=== PATIENT | female | born 1950 | race Caucasian/White ===

== ENCOUNTER 2018-11-12 11:50 | Emergency (ER) | payer MEDICARE, SELFPAY ==
[2018-11-12 11:50] VITALS: BP 143/81; PULSE 102; RESP 22; TEMP 36.7; O2SAT 98; BMI 26.9
--- NOTE | 2018-11-12 11:55 | ED.RN ---
PRESENTED TO ED. WOKE WITH RT FACIAL DROOP AND ILD RT GRASP WEAKNESS. REPORTS HAVING LOTT FOR A WEAK AND CONTINUES. WEAKNESS X2 DAYS. UNABLE TO DETERMINE LAST SEEN WELL. DUE TO GRADUAL PROGRESSION OF SX. NOTIFIED DR MARQUEZ. WANTS TO SEE PATIENT TO FIRST TO DETERMINE COURSE/PLAN TREATMENT.
--- NOTE | 2018-11-12 11:55 | ED.RN ---
1150. dr quinonez aware of pt . no stroke team
--- NOTE | 2018-11-12 12:01 | ED.RN ---
DR CROWLEY AT BEDSIDE AT PRESENT. PT REPORTS LOTT FOR 3-4 DAYS AT THIS TIME. CHANGE FROM INITAL INFORMATION OF A WEEK.
[2018-11-12 12:06] VITALS: BP 141/74; PULSE 105; RESP 24; O2SAT 98
--- NOTE | 2018-11-12 12:11 | CT_ITS ---
STUDY: CT BRAIN WITHOUT CONTRAST REASON FOR EXAM: Female, 68 years old. Right facial droop and speech difficulties. RADIATION DOSAGE (If Supplied By Facility): CTDIvol = ( 44.99 ) mGy, DLP = ( 796.11 ) mGycm TECHNIQUE: Transaxial CT imaging of the brain was performed without administration of intravenous contrast material. Individualized dose optimization techniques were used for this CT. COMPARISON: No relevant priors. FINDINGS: Normal soft tissue structures. Normal calvarium. Normal size ventricles and extra-axial spaces for the patient's age. Normal white matter tracts of the cerebral hemispheres. Normal basal ganglia and thalami. Normal brainstem. Normal cerebellum. There is no intracranial hemorrhage. There are no findings of an acute ischemic infarction. Normal visualized paranasal sinuses. CT/Brain/Head without Contrast IMPRESSION: Normal unenhanced CT scan of the brain. Electronically Signed: Festus Solis, at 12:57 EDT , Service support ,
--- NOTE | 2018-11-12 12:12 | EKG12_ITS ---
Test Reason : NEUROS/SX Blood Pressure : / mmHG Vent. Rate : 100 BPM Atrial Rate : 100 BPM P-R Int : 138 ms QRS Dur : 078 ms QT Int : 364 ms P-R-T Axes : 054 004 019 degrees QTc Int : 469 ms Normal sinus rhythm ST & T wave abnormality, consider anterolateral ischemia Abnormal ECG Confirmed by TOD BLOOD, JIMBO ([id number]), state editor BERKLEY LINARES ([id number]) on 11/14/2018 1:31:22 PM Referred By: ALMA Confirmed By:JIMBO BARON MD
--- NOTE | 2018-11-12 12:13 | ED.DCSUM_ITS ---
- ER Visit Summary Date of Service: 11/12/18 Chief Complaint: Facial weakness History of Present Illness: The patient is a 68 F who presents with right-sided facial weakness that began when she woke up this morning. Patient states she was having difficulties talking today because of the facial weakness. Patient denies any difficulty swallowing. Patient states she has had a headache recently. Patient states this is over the occiput and right side of her head. Patient admits to some nausea but denies any vomiting. Patient denies any chest pain or shortness of breath. Patient does admit to some blurred vision. Patient also admits to a sore throat. Patient states she has been having some difficulty ambulating over the past couple days because she has felt off balance. Physical Examination: Vital signs are stable. Patient is afebrile. Patient is in no acute distress. Cranial nerves II through XII are intact except for weakness of the right side of her face including her forehead. Strength is 5/5 bilaterally upper and lower extremities. There are no sensory deficits noted. Oral mucosa is pink and moist. Neck is supple. Trachea is midline. There is no JVD. Heart was regular rate and rhythm. Lungs are clear and equal bilaterally. Abdomen is soft and nontender. Test Results: EKG showed normal sinus rhythm with a rate of 100. There is nonspecific T wave inversion in leads V2 through V5. These are unchanged compared to previous EKG dated 02/01/2014. CT scan of the brain was obtained to evaluate her headache. There is no acute intracranial abnormality. CBC, basic metabolic profile, and troponin were obtained to evaluate for possible causes of her feeling off balance. These were all within normal limits. Emergency Department Course and Treatment: Patient was advised of her results. Patient was advised that this most likely a Sims's palsy. Patient was given a prescription for prednisone. Patient was instructed to use artificial tears to her right eye frequently. Patient was instructed to follow-up with her primary care physician in 3 to 5 days. Patient understood and was agreeable with the plan. All questions were answered. Disposition: Discharge home Impression: Sims's palsy This note was generated with [employer] software. It may contain incorrect words, spelling, and punctuation that were not noted in review of the chart prior to signing ED Disposition - Plan for ED Patient: Disposition: Home or Assisted Living Diagnosis: Sims's palsy Instructions: Sims's Palsy Prescriptions: predniSONE tablet 60 mg PO DAILY #15 tab Prescription Printed Referrals: Frederic Luong MD [Primary Care Provider] - 3-5 Days
[2018-11-12 12:22] LABS: Absolute Lymphocyte Count 2.79 X10^3/uL (0.83-4.51); Basophil# 0.08 X10^3/uL; Basophil% 0.8 % (0-1); Eosinophils% 2.1 % (0-5); Hematocrit 46.6 % (37-47); Hemoglobin 15.1 g/dL (12.0-15.0); Lymphocyte # 2.79 X10^3/ul (4.0); Lymphocyte % 28.8 % (19-41); Mean Corp Hgb Conc 32.4 g/dL (32-36); Mean Corpuscular Hgb 28.1 pg (27.0-32.0); Mean Corpuscular Volume 86.6 fL (81-99); Mean Platelet Vol. 9.1 fl (6.2-12.0); Monocyte# 0.55 X10^3/uL; Monocyte% 5.7 % (0-10); NRBC Flagged by Analyzer 0 % (0-5); Neutrophil # 6.04 X10^3/uL (2.7-7.7); Neutrophil % 62.3 % (47-70); Platelet Count 398 K/mm3 (150-450); RBC Distribution Width SD 40.5 fl (35.1-43.9); Red Blood Count 5.38 M/mm3 (4.2-5.4); White Blood Count 9.7 K/mm3 (4.4-11.0)
[2018-11-12 12:38] LABS: Anion Gap 10 (5-15); BUN 18 mg/dL (7-18); BUN/Creat Ratio 26.6 RATIO (10-20); Calcium,Total 9.9 mg/dL (8.5-10.1); Chloride 101 mmol/L (98-107); Creatinine, Serum 0.68 mg/dL (0.55-1.02); EST Glomerular Filtration Rate 92 mL/min (>60); Est Glom Filt Rate - Afr Amer 112 mL/min (>60); Estimated Creatinine Clearance 39.75 ml/min; Glucose 101 mg/dL (74-106); Potassium 3.5 mmol/L (3.5-5.1); Sodium Level 138 mmol/L (136-145)
[2018-11-12 13:06] VITALS: BP 135/69; PULSE 86; RESP 16; O2SAT 97
[2018-11-12] MEDS: Acetaminophen 500 MG Tablet 1000 MG PO (14:09)
[2018-11-12 14:10] VITALS: BP 147/70; PULSE 99; RESP 17; O2SAT 98
[2018-11-12 15:25] LABS: Bedside Glucose 96 mg/dL (70-110)
== END 2018-11-12 14:13 | disposition home or self-care (01) ==
PROVIDERS: Emergency Provider Emergency Medicine; Family Provider Internal Medicine; PCP Internal Medicine
DX: G51.0 Bell's palsy (principal); M54.9 Dorsalgia, unspecified; G89.29 Other chronic pain; J02.9 Acute pharyngitis, unspecified; R26.2 Difficulty in walking, not elsewhere classified
CPT/HCPCS: 70450; 80048; 82962; 84484; 85025; 93005; 99285

== ENCOUNTER 2018-11-14 13:24 | Inpatient (IN) | payer MEDICARE, SELFPAY ==
[2018-11-14] VITALS (8 sets, daily range): BP systolic 126–146; BP diastolic 56–87; PULSE 66–108; RESP 16–20; TEMP 36.4–37.2; O2SAT 95–100; BMI 26.1; BMI 26.6
--- NOTE | 2018-11-14 13:58 | EKG12_ITS ---
Test Reason : Blood Pressure : / mmHG Vent. Rate : 093 BPM Atrial Rate : 093 BPM P-R Int : 136 ms QRS Dur : 084 ms QT Int : 358 ms P-R-T Axes : 052 -05 113 degrees QTc Int : 445 ms Normal sinus rhythm ST & T wave abnormality, consider anterolateral ischemia Abnormal ECG Confirmed by TEE BLOOD, KARI ([id number]), legal editor LILIA CHILDS ([id number]) on 11/18/2018 1:13:10 PM Referred By: JILL Confirmed By:KARI OLIVEIRA MD
--- NOTE | 2018-11-14 13:59 | CT_ITS ---
STUDY: CTA HEAD AND NECK WITH CONTRAST REASON FOR EXAM: Female, 68 years old. Right-sided weakness and right facial droop. RADIATION DOSAGE (If Supplied By Facility): CTDIvol = ( 26.10 ) mGy, DLP = ( 1187.80 ) mGycm TECHNIQUE: CT angiography was performed with a multi-detector CT scanner. Data acquisition was obtained from the skull base through the vertex following intravenous administration of 100ML IV Isovue 300. MIP images were reconstructed from the axial data set. Post-processing of the angiographic images was performed, with multiplanar reformation and 3D reconstruction. Individualized dose optimization techniques were used for this CT. COMPARISON: No relevant priors. FINDINGS: Normal bilateral petrous carotid arteries. Normal right cavernous carotid artery with a normal supraclinoid bifurcation. Normal left cavernous carotid artery with a normal supraclinoid bifurcation. There is hypoplastic development of the right A1 segment of the anterior cerebral arteries with an atretic but intact artery. Normal left A1 segments of the anterior cerebral artery. Normal intact anterior communicating artery (ACOM). Normal bilateral A2 segments of the anterior cerebral arteries. Normal right M1 and M2 segments of the middle cerebral arteries, with a normal M1 bifurcation. Normal left M1 and M2 segments of the middle cerebral arteries, with a normal M1 bifurcation. There is a persistent origin of the right posterior cerebral artery with absence of the posterior communicating artery (PCOM). Normal left posterior communicating artery (PCOM). Normal bilateral vertebral arteries. Normal basilar artery with a normal basilar bifurcation. The visualized bilateral superior cerebellar (SCA) arteries are normal. Normal bilateral P1, P2 and visualized P3 segments of the posterior cerebral arteries. There is no demonstrated aneurysm of the picayune of [place]. There is no demonstrated abnormality of the visualized brain. AORTIC ARCH: There is atherosclerotic calcific plaque formation of the aortic arch and great vessels arising from the aortic arch, without a hemodynamically significant stenosis. There is a normal origin of the brachiocephalic, left common carotid, and left subclavian arteries. RIGHT CAROTID ARTERIES: Normal right common carotid artery (CCA). Normal right common carotid bulb. Normal origin of the right internal carotid (ICA) artery without a hemodynamically significant stenosis. Normal visualized cervical portion of the right internal carotid artery. Normal origin of the right external carotid artery (ECA). LEFT CAROTID ARTERIES: Normal left common carotid artery (CCA). Normal left common carotid bulb. Normal origin of the left internal carotid (ICA) artery without a hemodynamically significant stenosis. Normal visualized cervical portion of the left internal carotid artery. Normal origin of the left external carotid artery (ECA). VERTEBRAL ARTERIES: Normal bilateral vertebral arteries. CT/CTA Head AND Neck W/ Contrast IMPRESSION: Normal CTA Head and neck with contrast. Electronically Signed: Festus Solis, at 15:07 EDT , Service support ,
--- NOTE | 2018-11-14 14:01 | ED.DCSUM_ITS ---
- ER Visit Summary Date of Service: 11/14/18 Chief Complaint: Right facial droop and right-sided weakness History of Present Illness: The patient is a 68 F around November 12 and diagnosed with Sims's palsy. At that time she had right-sided facial droop. Since that time she is developed nausea and vomiting and trouble using her right arm and right leg which she is states that weaker. He also states she is having trouble walking due to her balance. States she has a posterior headache. She denies any head trauma. She is on no blood thinners. She is never anything like this before. Physical Examination: Alert female no acute distress. Vital signs are stable. She is afebrile. Blood pressure 126/87. HEENT exam pupils round reactive light. She is able to open but not fully close her right eye. She is right- sided facial droop. Tongue is midline. Neck nontender no lymphadenopathy. Lungs clear to auscultation bilaterally. Heart regular rate and rhythm rate about 105 no murmur. Abdomen soft nontender normal bowel sounds no peritoneal signs. Extremities moves all 4. He is weak on the right hand with hands parter and also the right leg. Neurologically she is awake and alert. She has right facial droop, right hand hands parter strength seen in the left in the left and she is r ight-hand dominant and decreased right leg strength. She also has slightly decreased dexterity with the right and versus the left and the right leg with [id number]. NIH score is of 5. She has normal speech. He is able to answer questions. Test Results: Chest x-ray no acute abnormality read by myself the radiologist. CTA head neck no acute abnormality read as normal by the radiologist and reviewed by me. EKG sinus rhythm rate of 93 with inverted T waves that were seen on a prior EKG. White count elevated 16 globin 15. Electrolytes sodium 132. Normal gap. Creatinine 0.7. INR 1. Emergency Department Course and Treatment: 68-year-old being worked up for possible CVA. Versus other etiologies. She had a CAT scan done the other day which is unremarkable. Normal screening labs. I will do a CTA of her head and neck today. Most likely she will need to be admitted for further work-up and possible MRI. Treatment Plan: Repeat exam at 1515 p.m. patient is unchanged. She still definitely has right facial droop and right upper and lower extremity weakness with decreased dexterity. In light of that and her age still may be Sims's palsy be unlikely did have any involvement of the extremities show need to be admitted for further evaluation and work-up for possible stroke. Disposition: admit Impression: Acute right facial droop and right-sided weakness Rule out stroke This note was generated with [employer] dictation software. It may contain incorrect words, spelling, and punctuation that were not noted in review of the chart prior to signing ED Disposition - Plan for ED Patient: Referrals: Frederic Luong MD [Primary Care Provider] -
--- NOTE | 2018-11-14 14:01 | RAD_ITS ---
STUDY: X-RAY CHEST REASON FOR EXAM: Female, 68 years old. History of CVA. TECHNIQUE: Single AP portable view of the chest. COMPARISON: None. FINDINGS: EKG electrodes are seen. The lungs are clear and expanded. There is no demonstrated pleural abnormality. Normal size heart. Normal mediastinum and inés. Normal visualized pulmonary arteries. There is atherosclerotic calcification of the aortic arch with tortuosity. Normal visualized thoracic spine. Normal visualized ribs, clavicles, and shoulders. There is no demonstrated abnormality of the visualized soft tissue structures of the upper abdomen. RAD/Chest 1 View (Portable) IMPRESSION: No acute abnormality is seen. Electronically Signed: Festus Solis, at 14:27 EDT , Service support ,
[2018-11-14] MEDS: 0.9% Normal Saline 1,000 ML 1000 ML IV (14:18)
[2018-11-14 14:26] LABS: Absolute Lymphocyte Count 2.97 X10^3/uL (0.83-4.51); Absolute Neutrophil Count 12.7 X10^3/uL (2.0-7.7); Basophil# 0.04 X10^3/uL; Basophil% 0.2 % (0-1); Hematocrit 46.4 % (37-47); Hemoglobin 15.6 g/dL (12.0-15.0); Lymphocyte # 2.97 X10^3/ul (4.0); Lymphocyte % 18.1 % (19-41); Mean Corp Hgb Conc 33.6 g/dL (32-36); Mean Corpuscular Hgb 28.4 pg (27.0-32.0); Mean Corpuscular Volume 84.5 fL (81-99); Mean Platelet Vol. 9.3 fl (6.2-12.0); Monocyte# 0.57 X10^3/uL; Monocyte% 3.5 % (0-10); NRBC Flagged by Analyzer 0 % (0-5); Neutrophil # 12.72 X10^3/uL (2.7-7.7); Neutrophil % 77.7 % (47-70); Platelet Count 498 K/mm3 (150-450); RBC Distribution Width SD 39.8 fl (35.1-43.9); Red Blood Count 5.49 M/mm3 (4.2-5.4); White Blood Count 16.4 K/mm3 (4.4-11.0)
[2018-11-14 14:38] LABS: Anion Gap 7 (5-15); BUN 33 mg/dL (7-18); BUN/Creat Ratio 43.1 RATIO (10-20); Calcium,Total 10.2 mg/dL (8.5-10.1); Chloride 101 mmol/L (98-107); Creatinine, Serum 0.76 mg/dL (0.55-1.02); EST Glomerular Filtration Rate 80 mL/min (>60); Est Glom Filt Rate - Afr Amer 97 mL/min (>60); Estimated Creatinine Clearance 39.75 ml/min; Glucose 167 mg/dL (74-106); Potassium 3.9 mmol/L (3.5-5.1); Sodium Level 132 mmol/L (136-145)
--- NOTE | 2018-11-14 15:33 | NURSING ---
HOSPITALIST FOR DR MELCHOR
--- NOTE | 2018-11-14 15:38 | NURSING ---
PCU STROKE [facility]
--- NOTE | 2018-11-14 16:24 | ECHOD_ITS ---
Reason For Study: TIA/STROKE Procedure This was a 2D Doppler, Color Flow transthoracic echocardiogram. Exam performed portable in patient room. Left Ventricle Normal LV size. Left ventricular systolic function is normal. The estimated ejection fraction is 60 %. No evidence for diastolic dysfunction. No regional wall motion abnormalities noted. Right Ventricle Normal RV size. Normal systolic function. Atria Normal left atrium. Normal right atrium. No doppler evidence for ASD. Mitral Valve There is no mitral annular calcification. Mild diffuse mitral valve thickening. Mild (1+) mitral valve insufficiency. Tricuspid Valve Normal tricuspid valve. Mild tricuspid valve insufficiency. Right ventricular systolic pressure estimated to be 34 mmHg. Aortic Valve Trisinus/trileaflet aortic valve. Normal aortic valve. Pulmonic Valve The pulmonic valve is not well visualized. Great Vessels Normal sized aortic root. Pericardium/Pleural No pericardial effusion. Medication Previously negative bubble study on 2012 echo. MMode/2D Measurements & Calculations LVIDd: 4.2 cm IVSd: 0.80 cm Ao root diam: 3.0 cm LVIDs: 2.9 cm LVPWd: 0.81 cm RVDd: 2.4 cm FS: 30.3 % LAV(MOD-bp): 29.4 ml LVAd ap4: 24.5 cm2 SV(MOD-sp4): 40.2 ml LAV(MOD-bp) Indexed: 18.6 ml/m2 EDV(MOD-sp4): 69.4 ml LAV(MOD-sp2): 35.4 ml EDV(sp4-el): 72.4 ml LAV(MOD-sp4): 20.3 ml LVAs ap4: 13.7 cm2 ESV(MOD-sp4): 29.2 ml ESV(sp4-el): 29.6 ml EF(MOD-sp4): 57.9 % EF(sp4-el): 59.1 % SV(sp4-el): 42.8 ml LA A4 area: 9.9 cm2 LA dimension(2D): 3.5 cm RA A4 area: 6.6 cm2 Time Measurements MV dec time: 0.38 sec Doppler Measurements & Calculations MV E max enzo: 44.4 cm/sec Lat Peak E' Enzo: 7.2 cm/sec Med Peak E' Enzo: 3.6 cm/sec MV A max enzo: 85.2 cm/sec E/E' lat: 6.1 E/E' med: 12.3 MV E/A: 0.52 Ao V2 max: 97.7 cm/sec LV V1 max: 84.9 cm/sec PA V2 max: 76.9 cm/sec Ao max P.8 mmHg LV V1 max P.9 mmHg TR max enzo: 254.8 cm/sec TR max P.0 mmHg Interpretation Summary Left ventricular systolic function is normal. The estimated ejection fraction is 60 %. Mild diffuse mitral valve thickening. Mild (1+) mitral valve insufficiency. Mild tricuspid valve insufficiency. Right ventricular systolic pressure estimated to be 34 mmHg. No evidence for diastolic dysfunction. Ordering Physician: Tonia Flores Referring Physician: SYD AMBROSIO Performed By: Arlette Delarosa, GLYNN, RVT
--- NOTE | 2018-11-14 16:29 | HP.PCM_ITS ---
Problem List (1) Acute ischemic VBA brainstem stroke Status: Acute Qualifiers: Laterality: right Qualified Code(s): I63.211 - Cerebral infarction due to unspecified occlusion or stenosis of right vertebral artery; I63.22 - Cerebral infarction due to unspecified occlusion or stenosis of basilar artery History of Present Illness Date of Admission: 11/14/18 Chief Complaint: Right upper and lower extremity weakness The patient is a 68 year old F with no significant past medical history other than hypercholesterolemia. 2 days ago presented to the emergency room with right facial weakness and was diagnosed with Sims's palsy, prescribed antibiotics and discharged home. Patient informed me that at that time she was also having unsteadiness/ataxia of gait. Patient states as well that at that time she was having right-sided head and neck pain especially around the right ear which she thought was an ear ache or toothache. Today noted right upper and lower extremity weakness and so presented again to the emergency department. She is also having some dysphagia, dizziness and vertigo, nausea and vomiting. She is unable to keep any food down. Denies any numbness or tingling in extremities. No loss of consciousness or neck stiffness. [] Past Medical History Past Medical History (Chronic Problems): Chronic Problems Electrocardiogram abnormal (Chronic) Migraine (Chronic) Diplopia (Chronic) Allergies sulfamethoxazole [From ] Allergy (Verified 11/14/18 13:27) Rash trimethoprim [From Decra] Allergy (Verified 11/14/18 13:27) Rash meloxicam Adverse Reaction (Verified 11/14/18 13:27) Other Home Medications: Ambulatory Orders Medication Instructions Recorded predniSONE tablet 60 mg PO DAILY #15 tab 11/12/18 Peg 400/Hypromellose/Glycerin 2 drp RIGHT EYE TID PRN PRN 11/14/18 [Artificial Tears Drops] Surgical History: arthroscopy, knee, surgery Smoking Status: Never smoker Tobacco Use: Non-smoker Review of Systems Constitutional: Reports: Malaise, Weakness, Fatigue. Denies: Fever Eyes: Reports: Pain - Right eye, Redness - Right eye HEENT: Reports: Ear Pain, Eye Pain, Head Aches Respiratory: Denies: Cough Gastrointestinal: Reports: Nausea, Vomiting. Denies: Abdominal Pain Comment: On review of systems all were essentially negative VTE Information - Inpt Only VTE Present on Admission: No VTE Mechan Device Prophylaxis: None VTE Pharm Prophylaxis ordered?: Yes Patient Problems: Active and Suspected Problems Acute ischemic VBA brainstem stroke (Acute) - Physical Exam General: Alert, Oriented x3, Cooperative, No apparent distress, Lethargic HEENT: Atraumatic, - - There is slight conjunctival injection of the right eye. Oral: Moist Mucosa Neck: - - Tenderness on palpation of the right side of the neck Lungs: Clear to auscultation, Normal air movement, No rhonchi, No wheeze, No rales Cardiovascular: Regular rate, Regular Rhythm, Normal S1, Normal S2, No murmurs Abdomen: Bowel Sounds Present, Soft, Non Tender, Non-Distended, No Hepato- splenomegaly Extremities: No clubbing, No cyanosis, No edema, Capillary Refill Less than 3 Seconds Skin: No rashes, No breakdown Musculoskeletal: No Tenderness to Palpation of Joints or Extremities, No Muscle Wasting Lymphatic: No Cervical, Supraclavicular, or Inguinal Adenopathy - There is complete right-sided facial palsy of the lower motor neuron type. Extraocular and pupillary reflexes preserved. Sensation on both sides of the face and e xtremities are normal. Power in the right upper and lower extremities is 3-4/5, deep tendon reflexes were exaggerated bilaterally, tone slightly reduced in the right upper extremity, plantar responses were equivocal. Gait was not tested Psych/Mental Status: Normal Affect, Appropriate, Depressed Vital Signs Temp Pulse Resp BP Pulse Ox 98.1 F 74 20 H 143/71 H 100 11/14/18 16:19 11/14/18 16:19 11/14/18 16:19 11/14/18 16:19 11/14/18 16:19 Oxygen Delivery Method Room Air Weight: 61.734 kg Body Mass Index (BMI) 26.6 Finger Stick Blood Glucose 96 Laboratory Tests Past 24 Hrs 11/14/18 11/14/18 11/14/18 14:15 14:15 14:15 WBC 16.4 H RBC 5.49 H Hgb 15.6 H Hct 46.4 MCV 84.5 MCH 28.4 MCHC 33.6 RDW Std Deviation 39.8 RDW Coeff of Yashira 13.0 Plt Count 498 H MPV 9.3 Immature Gran % (Auto) 0.500 Neut % (Auto) 77.7 H Lymph % (Auto) 18.1 L [place] % (Auto) 3.5 Eos % (Auto) 0.0 Baso % (Auto) 0.2 Absolute Neuts (auto) 12.7 H Absolute Lymphs (auto) 2.97 Nucleated RBC % 0 PT 13.0 INR 1.0 Sodium 132 L Potassium 3.9 Chloride 101 Carbon Dioxide 24.0 Anion Gap 7 BUN 33 H Creatinine 0.76 Estim Creat Clear Calc 39.75 Est GFR (MDRD) Af Amer 97 Est GFR (MDRD) Non-Af 80 BUN/Creatinine Ratio 43.1 H Glucose 167 H Calcium 10.2 H Assessment/Plan All Active Problems Acute ischemic VBA brainstem stroke (Acute) #1. Acute ischemic stroke. Suspect most likely posterior circulation/vertebrobasilar and likely pontine and involving the facial nerve motor nucleus. The patient be kept n.p.o. as she appears to have dysphagia. Consult speech therapy. MRI of the brain with and without contrast. Echocardiogram. Keep on telemetry. Consult neurology. PT/OT for rehab at start on aspirin and [id number]. Screen for other secondary cardiovascular risk factors. 2. DVT prophylaxis with Lovenox. Code Visit Inpatient E&M: [id number] Init Hosp L3
--- NOTE | 2018-11-14 16:46 | MRI_ITS ---
HISTORY: Right facial droop, right extremity weakness COMPARISON: CT brain 11/12/2018, MRI brain 09/12/2011 TECHNIQUE: Multiphasic multiplanar MR imaging of the brain per department protocol without and with 12 ml of Dotarem intravenous gadolinium. # of images including paperwork: 334 FINDINGS: BRAIN: Diffusion-weighted imaging shows no acute infarct. No remote parenchymal infarct. No parenchymal hemorrhage, intra-axial mass, mass effect, or midline shift. No abnormal extra-axial fluid collections. VENTRICLES: Ventricles are normal in size and configuration. No hydrocephalus. POST CONTRAST: No abnormal enhancing parenchymal or dural based lesions. OTHER: Paranasal sinuses are clear. Mild right and minimal left mastoid air cell disease. Orbits are unremarkable. MRI/Brain W/WO Contrast IMPRESSION: 1. No acute infarct or acute intracranial disease. 2. Negative pre-and postcontrast MR examination of the brain. 3. Mild right and minimal left mastoid air cell disease. at [id number] Reported and signed by: Jacinto Bull MD Electronically Signed: Jacinto Bull MD at 21:55 EDT Tel , Service support ,
[2018-11-14] MEDS: Ketorolac 30 MG/ML Syringe IV (18:14)
[2018-11-14] MEDS: Glycerin/Hypromellose/PEG400 15 ml Bottle 2 DRP RIGHT EYE (20:11)
[2018-11-14] MEDS: Atorvastatin Calcium 80 MG Tablet PO (22:56)
[2018-11-15] VITALS (10 sets, daily range): BP systolic 123–146; BP diastolic 56–71; PULSE 70–91; RESP 16–20; TEMP 36.5–37.1; O2SAT 93–99; BMI 26.6
[2018-11-15] MEDS: Ketorolac 30 MG/ML Syringe IV ×3 (05:52→21:22)
--- NOTE | 2018-11-15 06:48 | PN_ITS ---
Patient Problems: Active and Suspected Problems Acute ischemic VBA brainstem stroke (Acute) Conversion disorder (Acute) Weakness (Acute) Sims's palsy (Acute) Status migrainosus (Acute) Subjective: The patient is a 68-year-old female with a past medical history of an abnormal EKG, migraine, hyperlipidemia and diplopia who presented to the emergency department at [facility] on 11/14/2018 complaining of right-sided weakness. She had been seen in the emergency department 2 days prior to admission with right facial weakness and was diagnosed with Sims's palsy and prescribed antibiotics and discharged home. In addition to right- sided weakness she complained of difficulty swallowing, vertigo, nausea and vomi ting. She had been unable to keep any food down. Vital signs at presentation to the hospital were temperature 97.6, pulse rate 108, blood pressure 126/87, respiratory rate 16 and she was 95% saturated on room air. CBC was remarkable for an elevated white blood cell count at 16.4 with 78% neutrophils. Hemoglobin was high at 15.6 and the platelet count was increased at 498,000. BMP was remarkable for a sodium of 132 and a BUN of 33 with a creatinine of 0.76 and a BUN/creatinine ratio of 43.1. Random blood sugar was elevated at 167 and the calcium was 10.2. Troponin was less than 0.015. Chest x-ray showed no cardiomegaly, no effusions, no infiltrates and no pulmonary vascular congestion. CTA of the head neck was normal. MRI of the brain showed no acute infarct or acute intracranial disease. She was admitted to a monitored bed on PCU and the stroke protocol was initiated. Consultation was ordered with Dr. Jimenez. Lipid panel and echocardiogram were ordered for the following morning. All events of the past 24 hours of been reviewed. Afebrile since admission Blood pressures have ranged from 123/56-146/82 since admission. Pulse ox ranges from 95 to 100% on room air. she is c/o a severe migraine LOTT. She has photophobia. She lifted her R arm easily to shake my hand. She ambulated 200 feet today with standby contact- guard assist of 1. She is 68 YO and she has a 4 YO great grandchild and a 7 YO great grand child living with her. the younger child is autistic. She also has a 16 YO grand- daughter living with her. Her is 70 YO. Their grandson gave up custody of the children because he was not taking good care of them. The mother is in [place] [facility] and uses illicit drugs. She complains of being chronically fatigued, having difficulty sleeping at night, having no appetite. She is often irritable. She admits to feeling depressed. He feels overwhelmed. She has never been on an antidepressant and she has not received any counseling. - Physical Exam General: Alert, Oriented x3, Cooperative, - - Appears very fatigued and affect is extremely flat. She has her right eye taped shut because of double vision. HEENT: Atraumatic, PERRLA, EOMI, Normocephalic Oral: Dry Mucosa Neck: Supple, No JVD, Trachea Midline Lungs: Clear to auscultation Cardiovascular: Regular rate, Regular Rhythm, Normal S1, Normal S2, No murmurs, No Gallop Abdomen: Bowel Sounds Present, Soft, Non Tender, Non-Distended Extremities: No clubbing, No cyanosis, No edema Skin: No rashes, No breakdown Neurological: - - Right facial droop, weak obesity obicularis oculi on the right side consistent with Sims's palsy. 5/5 strength on the left side and 4/5 strength in the right upper and lower extremities however this is not consistent. Babinski's are downgoing. Psych/Mental Status: Flat Affect - Very tearful at the end of our conversation regarding depression. Vital Signs Temp Pulse Resp BP Pulse Ox 98.7 F 73 16 138/67 H 95 11/15/18 06:00 11/15/18 06:00 11/15/18 06:00 11/15/18 06:00 11/15/18 06:00 Oxygen Delivery Method Room Air Weight: 136 lb 1.6 oz Body Mass Index (BMI) 26.6 Finger Stick Blood Glucose 96 Intake and Output for Last 24 Hours 11/13/18 11/14/18 11/15/18 23:59 23:59 23:59 Intake Total 900 / 900 804 / 804 Balance 900 / 900 804 / 804 Laboratory Tests Past 24 Hrs 11/14/18 11/14/18 11/14/18 14:15 14:15 14:15 WBC 16.4 H RBC 5.49 H Hgb 15.6 H Hct 46.4 MCV 84.5 MCH 28.4 MCHC 33.6 RDW Std Deviation 39.8 RDW Coeff of Yashira 13.0 Plt Count 498 H MPV 9.3 Immature Gran % (Auto) 0.500 Neut % (Auto) 77.7 H Lymph % (Auto) 18.1 L [place] % (Auto) 3.5 Eos % (Auto) 0.0 Baso % (Auto) 0.2 Absolute Neuts (auto) 12.7 H Absolute Lymphs (auto) 2.97 Nucleated RBC % 0 PT 13.0 INR 1.0 Sodium 132 L Potassium 3.9 Chloride 101 Carbon Dioxide 24.0 Anion Gap 7 BUN 33 H Creatinine 0.76 Estim Creat Clear Calc 39.75 Est GFR (MDRD) Af Amer 97 Est GFR (MDRD) Non-Af 80 BUN/Creatinine Ratio 43.1 H Glucose 167 H Calcium 10.2 H Troponin I 11/14/18 16:20 WBC RBC Hgb Hct MCV MCH MCHC RDW Std Deviation RDW Coeff of Yashira Plt Count MPV Immature Gran % (Auto) Neut % (Auto) Lymph % (Auto) [place] % (Auto) Eos % (Auto) Baso % (Auto) Absolute Neuts (auto) Absolute Lymphs (auto) Nucleated RBC % PT INR Sodium Potassium Chloride Carbon Dioxide Anion Gap BUN Creatinine Estim Creat Clear Calc Est GFR (MDRD) Af Amer Est GFR (MDRD) Non-Af BUN/Creatinine Ratio Glucose Calcium Troponin I < 0.015 Medical Necessity - Tobacco Use Smoking Status: Never smoker Tobacco Use: Non-smoker Assessment/Plan All Active Problems Acute ischemic VBA brainstem stroke (Acute) Conversion disorder (Acute) Weakness (Acute) Sims's palsy (Acute) Status migrainosus (Acute) Impressions 1. Subjective right-sided weakness. CVA ruled out with normal MRI of the brain 2. Severe depression with decreased appetite, weight loss, difficulty with sleeping, chronic fatigue, irritability/mood swings and feeling overwhelmed and crying at times. 3. Migraine headache 4. Sims's palsy 5. Possible conversion disorder 6. Unremarkable echocardiogram with an EF of 60% and no significant valvular heart disease. Right ventricular systolic pressure was estimated at 34 7. Hypophosphatemia 8. Hypercalcemia-suspect related to dehydration 9. Dehydration due to poor appetite and intake Start Remeron 15 mg p.o. nightly She was seen by the manager social responsibility and given resources for counseling She was agreeable to starting an antidepressant Sed rate is normal Started on Depakote 500 mg IV every [address] Jimenez along with intravenous magnesium. Continue Toradol as needed cephalgia Start IV normal saline at 150 cc/h Recheck lab in the a.m. Start Valtrex or acyclovir for treatment of Sims's palsy Probable discharge in the a.m. with follow-up with Dr. Jimenez as an outpat ient. Code Visit Inpatient E&M: 43746 Subs Hosp L2
[2018-11-15 07:02] LABS: Absolute Neutrophil Count 5.4 X10^3/uL (2.0-7.7); Basophil# 0.05 X10^3/uL; Basophil% 0.5 % (0-1); Eosinophil# 0.04 X10^3/uL; Eosinophils% 0.4 % (0-5); Hematocrit 38.6 % (37-47); Hemoglobin 12.7 g/dL (12.0-15.0); Lymphocyte % 39.4 % (19-41); Mean Corp Hgb Conc 32.9 g/dL (32-36); Mean Corpuscular Hgb 28.2 pg (27.0-32.0); Mean Corpuscular Volume 85.6 fL (81-99); Mean Platelet Vol. 9.6 fl (6.2-12.0); Monocyte# 0.68 X10^3/uL; Monocyte% 6.7 % (0-10); NRBC Flagged by Analyzer 0 % (0-5); Neutrophil # 5.36 X10^3/uL (2.7-7.7); Neutrophil % 52.8 % (47-70); Platelet Count 386 K/mm3 (150-450); RBC Distribution Width CV 13.6 % (11.6-14.6); RBC Distribution Width SD 42.4 fl (35.1-43.9); Red Blood Count 4.51 M/mm3 (4.2-5.4); White Blood Count 10.2 K/mm3 (4.4-11.0)
[2018-11-15 07:21] LABS: Cholesterol 191 mg/dL (200); High Density Lipoprotein 33 mg/dL; Triglycerides 214 mg/dL; Very Low Density Lipoprotein 43 mg/dL (5-40)
[2018-11-15 07:25] LABS: AST(SGOT) 10 U/L (15-37); Alanine Aminotransfer ALT/SGPT 16 U/L (13-56); Albumin, Serum 3.1 g/dL (3.2-5.0); Alkaline Phosphatase 55 U/L (45-117); Bilirubin, Direct 0.07 mg/dL (0.00-0.30); Globulin 3.2 g/dL (2.2-4.2); Magnesium 2.1 mg/dL (1.6-2.6); Phosphorus 1.2 mg/dL (2.5-4.9); Protein, Total 6.3 g/dL (6.4-8.2)
[2018-11-15 07:31] LABS: Hemoglobin A1c 5.9 % (4.2-6.3)
--- NOTE | 2018-11-15 11:10 | PCM.CONS.GEN ---
Problem List (1) Conversion disorder Status: Acute (2) Weakness Status: Acute (3) Sims's palsy Status: Acute (4) Status migrainosus Status: Acute Reason for Consult Date of Consultation: 11/15/18 Reason for Consultation: Recent Sims's palsy, right-sided weakness, headache History of Present Illness: The patient is a 68 year old F with PMH HLD, migraine and history of lumbar surgery admitted with right-sided weakness. Patient was recently diagnosed with right-sided Sims's palsy on 11/12/2018 when she had an ED visit for right facial weakness and has been on prednisone for the same. Per patient she started having right-sided weakness for a day or 2, along with headache which has been occipital especially on the right side, with some photophobia, phonophobia, nausea and visual floaters. Per patient she has been having headaches for the past 3 to 4 days. She did have history of migraines in the past but did not have any migraine headaches for about a year or so. She also feels that she may have some discomfort in the neck but denies any radicular symptoms. She denies any vision loss, temporal tenderness or jaw claudication. She denies any dizziness, speech disturbances, or sensory loss at present. Patient she is under a lot of stress at present but denies any suicidal ideation. CT head done on admission was unremarkable. MRI brain done on admission did not show any acute stroke. CTA head/neck did not show any hemodynamically significant stenosis or occlusion. [] Past Medical History Past Medical History (Chronic Problems): Chronic Problems Electrocardiogram abnormal (Chronic) Migraine (Chronic) Diplopia (Chronic) Allergies sulfamethoxazole [From Septra] Allergy (Verified 11/14/18 13:27) Rash trimethoprim [From Septra] Allergy (Verified 11/14/18 13:27) Rash meloxicam Adverse Reaction (Verified 11/14/18 13:27) Other Home Medications: Ambulatory Orders Medication Instructions Recorded predniSONE tablet 60 mg PO DAILY #15 tab 11/12/18 Peg 400/Hypromellose/Glycerin 2 drp RIGHT EYE TID PRN PRN 11/14/18 [Artificial Tears Drops] Surgical History: arthroscopy, knee, surgery Lives: Spouse/ Significant Other Smoking Status: Never smoker Tobacco Use: Non-smoker Alcohol: None Drugs: None Review of Systems Constitutional: Reports: - - Complete ROS negative except as documented in HPI Patient Problems: Active and Suspected Problems Acute ischemic VBA brainstem stroke (Acute) Conversion disorder (Acute) Weakness (Acute) Sims's palsy (Acute) Status migrainosus (Acute) - Physical Exam General: Alert HEENT: Normocephalic Neck: Supple Lungs: Normal air movement Cardiovascular: Normal S1, Normal S2 Abdomen: Bowel Sounds Present Extremities: No cyanosis Neurological: - - Conscious, alert, CN right 7th LMN facial palsy, weak orbicularis oculi orbit, orbicularis jarrod and buccinator, power 5/5 left upper and lower extremities, 4 x 5 right upper and lower extremities but patient has poor effort and Mccray sign is positive in the right lower extremity, no sensory loss, no cerebellar signs, gait deferred, plantars bilateral flexor, reflexes + B/L B/S/T/K/A, no NR, fundus not visualized. Psych/Mental Status: Normal Affect Vital Signs Temp Pulse Resp BP Pulse Ox 97.7 F L 77 16 131/61 H 94 11/15/18 10:00 11/15/18 10:00 11/15/18 10:00 11/15/18 10:00 11/15/18 10:00 Oxygen Delivery Method Room Air Weight: 61.734 kg Body Mass Index (BMI) 26.6 Finger Stick Blood Glucose 96 Intake and Output for Last 24 Hours 11/13/18 11/14/18 11/15/18 23:59 23:59 23:59 Intake Total 900 / 900 804 / 804 Balance 900 / 900 804 / 804 Laboratory Tests Past 24 Hrs 11/14/18 11/14/18 11/14/18 14:15 14:15 14:15 WBC 16.4 H RBC 5.49 H Hgb 15.6 H Hct 46.4 MCV 84.5 MCH 28.4 MCHC 33.6 RDW Std Deviation 39.8 RDW Coeff of Yashira 13.0 Plt Count 498 H MPV 9.3 Immature Gran % (Auto) 0.500 Neut % (Auto) 77.7 H Lymph % (Auto) 18.1 L [place] % (Auto) 3.5 Eos % (Auto) 0.0 Baso % (Auto) 0.2 Absolute Neuts (auto) 12.7 H Absolute Lymphs (auto) 2.97 Nucleated RBC % 0 PT 13.0 INR 1.0 Sodium 132 L Potassium 3.9 Chloride 101 Carbon Dioxide 24.0 Anion Gap 7 BUN 33 H Creatinine 0.76 Estim Creat Clear Calc 39.75 Est GFR (MDRD) Af Amer 97 Est GFR (MDRD) Non-Af 80 BUN/Creatinine Ratio 43.1 H Glucose 167 H Hemoglobin A1c Calcium 10.2 H Phosphorus Magnesium Total Bilirubin Direct Bilirubin AST ALT Alkaline Phosphatase Troponin I Total Protein Albumin Globulin Triglycerides Cholesterol LDL Cholesterol VLDL Cholesterol HDL Cholesterol 11/14/18 11/15/18 11/15/18 16:20 06:21 06:21 WBC 10.2 RBC 4.51 Hgb 12.7 Hct 38.6 MCV 85.6 MCH 28.2 MCHC 32.9 RDW Std Deviation 42.4 RDW Coeff of Yashira 13.6 Plt Count 386 MPV 9.6 Immature Gran % (Auto) 0.200 Neut % (Auto) 52.8 Lymph % (Auto) 39.4 [place] % (Auto) 6.7 Eos % (Auto) 0.4 Baso % (Auto) 0.5 Absolute Neuts (auto) 5.4 Absolute Lymphs (auto) 4.00 Nucleated RBC % 0 PT INR Sodium Potassium Chloride Carbon Dioxide Anion Gap BUN Creatinine Estim Creat Clear Calc Est GFR (MDRD) Af Amer Est GFR (MDRD) Non-Af BUN/Creatinine Ratio Glucose Hemoglobin A1c Calcium Phosphorus Magnesium Total Bilirubin Direct Bilirubin AST ALT Alkaline Phosphatase Troponin I < 0.015 Total Protein Albumin Globulin Triglycerides 214 H Cholesterol 191 LDL Cholesterol 115 VLDL Cholesterol 43 H HDL Cholesterol 33 L 11/15/18 11/15/18 06:21 06:21 WBC RBC Hgb Hct MCV MCH MCHC RDW Std Deviation RDW Coeff of Yashira Plt Count MPV Immature Gran % (Auto) Neut % (Auto) Lymph % (Auto) [place] % (Auto) Eos % (Auto) Baso % (Auto) Absolute Neuts (auto) Absolute Lymphs (auto) Nucleated RBC % PT INR Sodium Potassium Chloride Carbon Dioxide Anion Gap BUN Creatinine Estim Creat Clear Calc Est GFR (MDRD) Af Amer Est GFR (MDRD) Non-Af BUN/Creatinine Ratio Glucose Hemoglobin A1c 5.9 Calcium Phosphorus 1.2 L Magnesium 2.1 Total Bilirubin 0.40 Direct Bilirubin 0.07 AST 10 L ALT 16 Alkaline Phosphatase 55 Troponin I Total Protein 6.3 L Albumin 3.1 L Globulin 3.2 Triglycerides Cholesterol LDL Cholesterol VLDL Cholesterol HDL Cholesterol Assessment/Plan All Active Problems Acute ischemic VBA brainstem stroke (Acute) Conversion disorder (Acute) Weakness (Acute) Sims's palsy (Acute) Status migrainosus (Acute) The patient is a 68 year old F with PMH HLD, migraine and history of lumbar surgery admitted with right-sided weakness. Patient was recently diagnosed with right-sided Sims's palsy on 11/12/2018 when she had an ED visit for right facial weakness and has been on prednisone for the same. Per patient she started having right-sided weakness for a day or 2, along with headache which has been occipital especially on the right side, with some photophobia, phonophobia, nausea and visual floaters. Per patient she has been having headaches for the past 3 to 4 days. She did have history of migraines in the past but did not have any migraine headaches for about a year or so. She also feels that she may have some discomfort in the neck but denies any radicular symptoms. She denies any vision loss, temporal tenderness or jaw claudication. She denies any dizziness, speech disturbances, or sensory loss at present. Patient she is under a lot of stress at present but denies any suicidal ideation. CT head done on admission was unremarkable. MRI brain done on admission did not show any acute stroke. CTA head/neck did not show any hemodynamically significant stenosis or occlusion. Impression Right-sided weakness?MRI no acute stroke Unlikely to be TIA or stroke at present Recent right Sims's palsy Possible complicated migraine/status migrainosus versus conversion disorder Plan ?MRI C-spine without contrast ?Prednisone taper. Prednisone 60 mg p.o. once daily for 2 days, then 40 mg p.o. once daily for 2 days, then 20 mg p.o. once daily for 2 days, then 10 mg p.o. once daily for 2 days, then 5 mg p.o. once daily for 2 days and then stop. GI prophylaxis when she is on prednisone and calcium carbonate 500 mg p.o. twice daily while being on prednisone ?Valacyclovir 1 g p.o. 3 times daily for 7 days ?Patient at present is wearing an eye patch on the right eye. Discussed about right eye corneal infection chances and risk. ?Artificial tears right eye every 2-3 hours. ?Ophthalmological evaluation as outpatient ?Depacon 500 mg IV 3 times daily for 24 hours and then stop ?Magnesium sulfate 1 g IV once ?Toradol 30 mg IV as needed every 6 hourly for moderate to severe headaches for 24 hours and then stop, if no contraindication ?Check ESR and UA ?PT/OT ?ENT and psychiatric consult and counseling as outpatient ?GI/DVT prophylaxis ?Fall precautions ?Follow-up with neurology as outpatient in 6 weeks ?Please call with questions if any ?Thank you for allowing us to participate in patient's care and management This note has been generated using [employer] dictation software. It may contain incorrect words, spellings and punctuation's but has not been noted in the review of the note prior to signing. Code Visit Inpatient E&M: 78227 Init Hosp L3
--- NOTE | 2018-11-15 11:37 | CASEMGMT ---
RN CM Assessment Presentation: Conversion Disorder, Weakness Intro role of CM and purpose of RN CM assessment to patient and her daughter. Pt is withdrawn, states she is not feeling well, but participated in assessment. Demographics, PCP and Pharmacy verified. Per daughter, pt was independent, did not use equipment. Per OT, pt has stressors at home re: care needs of grandchildren and pt trying to do too much at home. PCP: Camila Cameron NP Specialists: Dr. Jimenez, Pulmonology Preferred [facility]acy: [facility] Insurance: MMO Prescription Benefit: yes LNOK: and daughter Living Arrangements: Lives independently in own home. Denied using any equipment at home, however is using walker here. PT/OT recommending walker for dc. Transportation: DME: none. No preference for DME provider. Walker script faxed to [facility] to be delivered to [facility]. OUTPT Therapy: Recommended on dc per PT/OT and Speech therapy recommended more sessions while in hospital. Pt agreeable to have script faxed to [facility]. Patient DC goals: Home SW: Referral for stress at home, josiah. KATHARINE Kaplan updated. DC PLAN: Home with Outpt Therapy.
--- NOTE | 2018-11-15 12:33 | CASEMGMT ---
RN CM Assessment Presentation: Conversion Disorder, Weakness Intro role of CM and purpose of RN CM assessment to patient and her daughter. Pt is withdrawn, states she is not feeling well, but participated in assessment. Demographics, PCP and Pharmacy verified. Per daughter, pt was independent, did not use equipment. Per OT, pt has stressors at home re: care needs of grandchildren and pt trying to do too much at home. PCP: Dr. Frederic Luong Specialists: Dr. Jimenez, Pulmonology Preferred Pharmacy: [facility] Insurance: [facility] Prescription Benefit: yes LNOK: and daughter Living Arrangements: Lives independently in own home. Denied using any equipment at home, however is using walker here. PT/OT recommending walker for dc. Transportation: DME: none. No preference for DME provider. Walker script faxed to [employer] to be delivered to [facility]. OUTPT Therapy: Recommended on dc per PT/OT and Speech therapy recommended more sessions while in hospital. Pt agreeable to have script faxed to [facility]. Patient DC goals: Home SW: Referral for stress at home, josiah. KATHARINE Kaplan updated. DC PLAN: Home with Outpt Therapy. Antoinette REDDYN RN ACM
--- NOTE | 2018-11-15 12:41 | MRI_ITS ---
STUDY: MRI CERVICAL SPINE WITHOUT CONTRAST REASON FOR EXAM: Female, 68 years old. Right-sided weakness and facial droop TECHNIQUE: Standardized fat and water weighted pulse sequences were obtained in the sagittal and axial planes. COMPARISON: None FINDINGS: Normal foramen magnum and brainstem-cervical cord junction. Normal craniovertebral junction. Normal anterior atlantoaxial articulation. Normal odontoid process. Normal cervical lordosis. Normal vertebral bodies and posterior osseous elements. C2-3: Normal endplates. Normal disc height, signal and morphology. Normal central canal and intervertebral neural foramina. C3-4: Normal endplates. Normal disc height, signal and small left paracentral disc protrusion.. There is mild narrowing of the central canal and impingement upon the ventral surface of the cord. Normal bilateral neuroforamina C4-5: Narrowed disc space with mild disc osteophyte complex. Normal central canal. Moderate to severe bilateral neuroforaminal stenosis due to bony hypertrophy C5-6: Normal endplates. Narrowed disc disc height, and minor osteophytic ridging.. Normal central canal . Mild left neuroforaminal stenosis secondary to bony hypertrophy C6-7: Normal endplates. Normal disc height, signal and small right paracentral disc protrusion.. Mild narrowing of the central canal. Normal intervertebral neural foramina. C7-T1: Normal endplates. Normal disc height, signal and morphology. Normal central canal and intervertebral neural foramina. Normal cervical cord. Normal visualized soft tissue structures. MRI/Spine Cervical (Routine) IMPRESSION: No evidence for acute fracture or subluxation. Moderate spondylosis Multilevel spinal stenosis secondary to disc disease and bony hypertrophy. Findings as above Electronically Signed: Riaz Carpenter MD at 20:19 EDT , Service support ,
[2018-11-15] MEDS: Glycerin/Hypromellose/PEG400 15 ml Bottle 2 DRP RIGHT EYE (13:02)
[2018-11-15 13:05] LABS: Erythrocyte Sedimentation Rate 18 mm/hr (0-30)
[2018-11-15] MEDS: Aspirin 325 MG Tablet PO (13:09)
[2018-11-15] MEDS: Magnesium Sulfate 1 GM in 0.9% Normal Saline 100 ML IV (13:09)
[2018-11-15] MEDS: Enoxaparin 40 MG/0.4 ML Syringe SC (13:09)
--- NOTE | 2018-11-15 13:52 | CASEMGMT ---
Social Work Spoke with pt about mood as pt has stressors at home. PHQ-9 completed. Pt reports to getting 4-5 hours of sleep a night, feeling tired sometimes, and occasionally feeling bad about herself or that she is a failure. Pt had a major lifestyle change a couple years ago and states she has adjusted, but still has moments where she cries from feeling overwhelmed/stressed. Pt stated her is a great support system and lets her express her feelings, but would like to see a counselor. Resources provided to pt and to notify SW if further supportive listening or emotional support is needed. Janeth Ludwig, SBA UNDERWRITER [employer]CH[employer]IC
[2018-11-15] MEDS: Atorvastatin Calcium 80 MG Tablet PO (21:04)
[2018-11-15] MEDS: Mirtazapine 15 MG Tablet PO (21:21)
[2018-11-15] MEDS: 0.9% NaCl Peripheral Flush Adult/Peds IV (21:25)
[2018-11-15] MEDS: Acyclovir 200 MG Capsule 400 MG PO (21:35)
[2018-11-15 22:54] LABS: Bacteria 0 SEEN /hpf (None Seen); Mucous, Urine 0 SEEN /hpf (<or=2+)
[2018-11-15 22:56] LABS: Color, Urine Yellow (Yellow); Glucose, Dipstick Normal (Normal); Ketone-Dipstick 5 mg/dl (Negative); Leukocyte Esterase-Dipstick 25 /ul (Negative); Nitrite-Dipstick Negative (Negative); Occult Blood-Urine Negative /ul (Negative); Protein-Dipstick Negative (Negative); Urine Bilirubin Dipstick Negative (Negative); Urine Clarity Clear (Clear); Urine Urobilinogen Normal (Normal)
[2018-11-15 23:02] LABS: Red Blood Cells-Urine 0-5 SEEN /hpf (0-5); Squamous Epithelial Cells - UA 0-5 SEEN /hpf (5-10); White Blood Cells 10-25 SEEN /hpf (0-5)
[2018-11-15] MEDS: 0.9% Normal Saline 1,000 ML 150 ML IV (23:56)
[2018-11-16] VITALS (8 sets, daily range): BP systolic 129–149; BP diastolic 51–68; PULSE 68–91; RESP 14–18; TEMP 36.6–36.9; O2SAT 97–99
[2018-11-16] MEDS: Acyclovir 200 MG Capsule 400 MG PO ×4 (05:10→16:45)
[2018-11-16] MEDS: Glycerin/Hypromellose/PEG400 15 ml Bottle 2 DRP RIGHT EYE (05:14)
[2018-11-16] MEDS: Ketorolac 30 MG/ML Syringe IV ×2 (05:17→11:41)
[2018-11-16] MEDS: 0.9% NaCl Peripheral Flush Adult/Peds IV ×2 (05:18→14:02)
[2018-11-16 07:15] LABS: Hemoglobin 12.7 g/dL (12.0-15.0); Mean Corp Hgb Conc 31.8 g/dL (32-36); Mean Corpuscular Hgb 28.2 pg (27.0-32.0); Mean Corpuscular Volume 88.9 fL (81-99); Mean Platelet Vol. 9.6 fl (6.2-12.0); Platelet Count 301 K/mm3 (150-450); RBC Distribution Width CV 13.3 % (11.6-14.6); RBC Distribution Width SD 43.7 fl (35.1-43.9); White Blood Count 7.5 K/mm3 (4.4-11.0)
[2018-11-16 07:37] LABS: Anion Gap 7 (5-15); BUN 10 mg/dL (7-18); BUN/Creat Ratio 19.8 RATIO (10-20); Calcium,Total 8.3 mg/dL (8.5-10.1); Chloride 112 mmol/L (98-107); EST Glomerular Filtration Rate 130 mL/min (>60); Est Glom Filt Rate - Afr Amer 157 mL/min (>60); Estimated Creatinine Clearance 39.75 ml/min; Glucose 95 mg/dL (74-106); Phosphorus 2.7 mg/dL (2.5-4.9); Potassium 3.4 mmol/L (3.5-5.1); Sodium Level 144 mmol/L (136-145)
[2018-11-16] MEDS: 0.9% Normal Saline 1,000 ML 150 ML IV (09:43)
[2018-11-16] MEDS: Aspirin 325 MG Tablet PO (09:46)
[2018-11-16] MEDS: dexAMETHasone 4 MG/ML Vial IV (14:02)
[2018-11-16] MEDS: 0.9% Normal Saline 1,000 ML 500 ML IV (14:11)
--- NOTE | 2018-11-16 16:03 | PCM.DC ---
- Discharge Diagnoses Current Active Problems: Current Active and Chronic Problems Acute ischemic VBA brainstem stroke (Acute) Conversion disorder (Acute) Weakness (Acute) Sims's palsy (Acute) Status migrainosus (Acute) You will use the following diet at home:: No restrictions Your food should be the consistency of: Regular Your liquids should be the consistency of: Regular/Thin Discharge Activity: Return to Normal Activity Call your doctor if you observe: Fever of 101 or Higher, Uncontrolled pain Instructions: Depression Affects Your Mind and Body, What Can Cause Depression?, Counseling for Depression, Depression: Tips to Help Yourself, Your Body's Response to Anxiety, Treating Anxiety Disorders with Therapy, Understanding Anxiety Disorders Additional Instructions: Dehydration can be brought on by stress, sleep deprivation and dehydration. Make sure to stay well hydrated. I have started you on a medication called Remeron to treat depressions and to help you sleep. You will take it at bedtime. You had this medication in the hospital. I think you need to get counselling.......you need someone to talk to who is a professional and can help you develop some better coping skills. Take at least 30 minutes of every to yourself EVERYDAY.......this is a prescription....u will be better able to cope. You will be taking a medication called Valtrex for the Sims's palsy.......it is an antivirl medication. Sims's palsy is frequently caused by a virus. You will also finish the Prednisone. The neurologist would like you to follow up with him in the office in 6 weeks to see how you are doing with migraines. Pending Tests on Discharge: none Allergies/Adverse Reactions: Allergies sulfamethoxazole [From Septra] Allergy (Verified 11/14/18 13:27) Rash trimethoprim [From Septra] Allergy (Verified 11/14/18 13:27) Rash meloxicam Adverse Reaction (Verified 11/14/18 13:27) Other Medications to take at Discharge predniSONE tablet 60 mg PO DAILY #15 tab 11/12/18 Peg 400/Hypromellose/Glycerin [Artificial Tears Drops] 2 drp RIGHT EYE TID PRN PRN 11/14/18 Mirtazapine [Remeron] 15 mg PO QHS #30 tab 11/16/18 Valacyclovir HCl [Valtrex] 1,000 mg PO TID #21 tab 11/16/18 The following prescriptions were given: Mirtazapine [Remeron] 15 mg PO QHS #30 tab Transmission Status: Pending to [id number] Valacyclovir HCl [Valtrex] 1,000 mg PO TID #21 tab Transmission Status: Pending to [id number] Primary Care Physician: Frederic Luong MD [Primary Care Provider] - Please follow up with your Primary Care Physician in: 1 week Test Results: Test results from this visit will be discussed in further detail at your follow-up appointment, if applicable. Please Follow Up With: Goldie Jimenez MD When: 6 weeks Proposed Discharge Date: 11/16/18
--- NOTE | 2018-11-16 16:25 | PCM.DC.SUM ---
Discharge Date and Diagnosis - Problem List Patient Problems: Active and Suspected Problems Hypophosphatemia (Acute) Hypokalemia (Acute) Conversion disorder (Suspected) Sims's palsy (Acute) Status migrainosus (Acute) Date of Admission: 11/14/18 Date of Discharge: 11/16/18 - Primary Discharge Diagnosis Active and Suspected Problems Right side weakness-negative MRI Conversion disorder (Suspected) Sims's palsy (Acute) Status migrainosus (Acute) Hypophosphatemia (Acute) Hypokalemia (Acute) - Secondary Discharge Diagnosis Chronic Problems Anxiety and depression (Chronic) Insomnia (Chronic) Electrocardiogram abnormal (Chronic) Migraine (Chronic) Diplopia (Chronic) Hospital Course and Treatment Imaging Results: Clinical Impression(s) from Imaging Studies Head/Neck CTA 11/14/18 13:59 IMPRESSION: Normal CTA Head and neck with contrast. Electronically Signed: Festus Solis, at 15:07 EDT , Service support , Chest X-Ray 11/14/18 14:01 IMPRESSION: No acute abnormality is seen. Electronically Signed: Festus Solis, at 14:27 EDT , Service support , Brain MRI 11/14/18 16:46 IMPRESSION: 1. No acute infarct or acute intracranial disease. 2. Negative pre-and postcontrast MR examination of the brain. 3. Mild right and minimal left mastoid air cell disease. at 2157 Reported and signed by: Jacinto Bull MD Electronically Signed: Jacinto Bull MD at 21:55 EDT Tel , Service support , Cervical Spine MRI 11/15/18 12:41 IMPRESSION: No evidence for acute fracture or subluxation. Moderate spondylosis Multilevel spinal stenosis secondary to disc disease and bony hypertrophy. Findings as above Electronically Signed: Riaz Carpenter MD at 20:19 EDT , Service support , Dr. Raimundo Jimenez-neurology Operations: None Procedures: 2-D Echocardiogram - Interpretation Summary Left ventricular systolic function is normal. The estimated ejection fraction is 60 %. Mild diffuse mitral valve thickening. Mild (1+) mitral valve insufficiency. Mild tricuspid valve insufficiency. Right ventricular systolic pressure estimated to be 34 mmHg. No evidence for diastolic dysfunction. Summary of Care Provided: The patient is a 68 year old F with PMH of HLD, migraine cephalgia, chronic diplopia (has not seen an opthamologist) and history of lumbar surgery who presented to the ER at [facility] complaining of right-sided weakness. She had recently been diagnosed with right-sided Sims's palsy on 11/12/2018 when she had an ED visit for right facial weakness and was on prednisone. She was not on an antiviral. She started having right-sided weakness for a day or 2, along with headache which was in the occipital area, especially on the right side. It was associated with photophobia, phonophobia, nausea and visual floaters. She had been having headaches for the preceding 3 to 4 days. She has a history of migraines in the past but, had no migraine headaches for about a year or so. She also felt that she may have some discomfort in the neck but denied any radicular symptoms. She denied any vision loss, temporal tenderness or jaw claudication. She denied any dizziness, speech disturbances or sensory loss. She is under a lot of stress at home. She and her have custody of their 7 YO and 4 YO great grandchildren. On of the great grandchildren is autistic. They also have a 16 YO grand daughter living with them. A noncontrasted CT head done on admission was unremarkable. MRI brain did not show any acute stroke. CTA head/neck did not show any hemodynamically significant stenosis or occlusion. She was seen in consultation by Dr. Jimenez and her primary complaint was severe headache. Neurological exam was unremarkable. He felt she was either having a complicated migraine/status migrainosus versus conversion disorder. He recommended a prednisone taper, Valtrex 1 g p.o. 3 times daily for 7 days for Sims's palsy and he started her on Depakote and magnesium intravenously for treatment of status migrainosus. She was overwhelmed and tearful when I was discussing her situation with her. She has never been on an antidepressant or had counselling for anxiety and depression. She is not sleeping well and her appetite is decreased. She feels tired all the time and sometimes is irritable. I started her on Remeron 15 mg at bedtime and she slept well the night prior to DC. On 11/16 she still had some residual LOTT but, she felt ready to go home. She was discharged with a RX for Valtrex and will finish the prednisone given to her in the ED. I also gave her a prescription for Remeron and recommended she follow up at the [facility] for counselling....she was provided with the phone number. She will follow-up with Dr. Luong in the office in 1 week. She will follow-up with Dr. Jimenez in the office in 6 weeks. I also recommended she follow up at the [facility] for diplopia. - Physical Exam General: Alert, Oriented x3, Cooperative, she is still photophobic and covering her right eye HEENT: Atraumatic, PERRLA, EOMI, Normocephalic Oral: Dry Mucosa Neck: Supple, No JVD, Trachea Midline, no carotid bruits Lungs: Clear to auscultation Cardiovascular: Regular rate, Regular Rhythm, Normal S1, Normal S2, No murmurs, No Gallop Abdomen: Bowel Sounds Present, Soft, Non Tender, Non-Distended Extremities: No clubbing, No cyanosis, No edema Skin: No rashes, No breakdown Neurological: - - Right facial droop, weak obesity obicularis oculi on the right side consistent with Sims's palsy. 5/5 strength on the left side and 5/5 strength in the right upper and lower extremities however this is not consistent. Babinski's are downgoing. Psych/Mental Status: Flat Affect, tearful at the end of our conversation regarding depression. This note was generated with [employer]ge[employer] software. It may contain incorrect words, spelling, and punctuation that were not noted in checking the note before signing. Patient Problems: Active and Suspected Problems Hypophosphatemia (Acute) Hypokalemia (Acute) Conversion disorder (Suspected) Sims's palsy (Acute) Status migrainosus (Acute) - Physical Exam Vital Signs Temp Pulse Resp BP Pulse Ox 97.8 F 85 14 129/51 H 99 11/16/18 14:17 11/16/18 15:37 11/16/18 14:17 11/16/18 14:17 11/16/18 14:17 Oxygen Delivery Method Room Air Weight: 136 lb 1.6 oz Body Mass Index (BMI) 26.6 Finger Stick Blood Glucose 96 Intake and Output for Last 24 Hours 11/14/18 11/15/18 11/16/18 23:59 23:59 23:59 Intake Total 900 / 900 1992 Balance 900 / 900 1992 Laboratory Tests Past 24 Hrs 11/15/18 11/16/18 11/16/18 21:10 06:40 06:40 WBC 7.5 RBC 4.50 Hgb 12.7 Hct 40.0 MCV 88.9 MCH 28.2 MCHC 31.8 L RDW Std Deviation 43.7 RDW Coeff of Yashira 13.3 Plt Count 301 MPV 9.6 Sodium 144 Potassium 3.4 L Chloride 112 H Carbon Dioxide 25.0 Anion Gap 7 BUN 10 Creatinine 0.50 L Estim Creat Clear Calc 39.75 Est GFR (MDRD) Af Amer 157 Est GFR (MDRD) Non-Af 130 BUN/Creatinine Ratio 19.8 Glucose 95 Calcium 8.3 L Phosphorus 2.7 Magnesium 2.0 Urine Color Yellow Urine Clarity Clear Urine pH 6.0 Ur Specific [place] 1.020 Urine Protein Negative Urine Glucose (UA) Normal Urine Ketones 5 H Urine Occult Blood Negative Urine Nitrite Negative Urine Bilirubin Negative Urine Urobilinogen Normal Ur Leukocyte Esterase 25 H Urine RBC 0-5 SEEN Urine WBC 10-25 SEEN Ur Squamous Epith Cells 0-5 SEEN Urine Bacteria 0 SEEN Urine Mucus 0 SEEN Discharge Activity: Return to Normal Activity Call your doctor if you observe: Fever of 101 or Higher, Uncontrolled pain Home Medications: Medications to take at Discharge predniSONE tablet 60 mg PO DAILY #15 tab 11/12/18 Peg 400/Hypromellose/Glycerin [Artificial Tears Drops] 2 drp RIGHT EYE TID PRN PRN 11/14/18 Mirtazapine [Remeron] 15 mg PO QHS #30 tab 11/16/18 Valacyclovir HCl [Valtrex] 1,000 mg PO TID #21 tab 11/16/18 Following Prescrptions Were Given to Patient: Mirtazapine [Remeron] 15 mg PO QHS #30 tab Transmission Status: Pending to [facility] Valacyclovir HCl [Valtrex] 1,000 mg PO TID #21 tab Transmission Status: Pending to [facility] Primary Care Physician: Frederic Luong MD [Primary Care Provider] - Please follow up with your Primary Care Physician in: 1 week Please Follow Up With: Goldie Jimenez MD When: 6 weeks Patient Instructions: Your Body's Response to Anxiety, Depression Affects Your Mind and Body, What Can Cause Depression?, Counseling for Depression, Depression: Tips to Help Yourself, Treating Anxiety Disorders with Therapy, Understanding Anxiety Disorders Disposition: Home Minutes spent on discharge:: 35 Patient Condition:: Stable Medical Necessity - Tobacco Use Smoking Status: Never smoker Tobacco Use: Non-smoker Meaningful Use Info Meaningful Use Diagnoses (Choose all that apply): None applicable Code Visit Inpatient E&M: 11980 Disch Hosp
--- NOTE | 2018-11-18 14:05 | CASEMGMT ---
TRACY CM DC PHONE CALL DC DATE: 11/16/18 DC Disposition: Home Diagnosis on Discharge: conversion disorder, hypophosphatemia, hypokalemia LACE/STRATA: 12/17 Attempted call, no answer. Antoinette REDDYN RN AC
== END 2018-11-16 18:00 | disposition home or self-care (01) | DRG 880 ==
LOC: ED 14:14 → PCU 16:05
PROVIDERS: Psychiatry & Neurology Neurology; Admitting Provider Internal Medicine; Emergency Provider Emergency Medicine; Family Provider Internal Medicine; PCP Internal Medicine; Visit Provider Internal Medicine
DX: F44.9 Dissociative and conversion disorder, unspecified (principal); G51.0 Bell's palsy; G43.901 Migraine, unspecified, not intractable, with status migrainosus; E83.39 Other disorders of phosphorus metabolism; E87.6 Hypokalemia; F32.9 Major depressive disorder, single episode, unspecified; F41.9 Anxiety disorder, unspecified; H53.2 Diplopia; G47.00 Insomnia, unspecified; E78.00 Pure hypercholesterolemia, unspecified; E86.0 Dehydration; M54.5 Low back pain; G89.29 Other chronic pain; J02.9 Acute pharyngitis, unspecified; R26.2 Difficulty in walking, not elsewhere classified
CPT/HCPCS: 36415; 70450; 70496; 70498; 70553; 71045; 72141; 80048; 80061; 80076; 81001; 82962; 83036; 83735; 84100; 84484; 85025; 85027; 85610; 85652; 92526; 92610; 93005; 93306; 97116; 97162; 97166; 97530; 99285; A9575; J7030; J7040; J7050; Q9967; A4216

== ENCOUNTER 2021-02-07 13:54 | Emergency (ER) | payer MEDICARE, SELFPAY ==
[2021-02-07 13:55] VITALS: BP 127/71; PULSE 70; RESP 16; TEMP 37; O2SAT 100; BMI 24.0
--- NOTE | 2021-02-07 14:04 | EDS_ITS ---
HPI History of Present Illness Chief Complaint: Lower Extremity Injury Detail of Chief Complaint: Right knee pain Informant: patient Occured/Mechanism Mechanism/Context: Yes injury and Yes same level fall Comment: Playing with her granddaughter. She slipped and twisted her knee. She localizes pain to the lateral aspect of the knee and lateral popliteal fossa Onset/Context/Timing Context: Sudden Onset Timing: Continuous Quality of Pain: Dull and Aching Current Severity: Mild Maximum Severity: Moderate Worsened by: Movement and extension Relieved by: Nothing Associated Symptoms Associated Symptoms: Positive for - (Limited use due to pain); Negative for Parasthesia and Weakness Narrative Tetanus Immunization: 5-10 years Prior similar symptoms: No Recent Illness/Hospitalization: No PFSH PFSH Home Medications prednisone 60 mg PO DAILY #15 tab 11/12/18 [Rx Last Taken 11/13/18] peg [id number] 2 drp RIGHT EYE TID PRN PRN 11/14/18 [History Last Taken 11/14/18] mirtazapine 15 mg PO QHS #30 tab 11/16/18 [Rx Last Taken Unknown] valacyclovir 1,000 mg PO TID #21 tab 11/16/18 [Rx Last Taken Unknown] Allergy/AdvReac Type Severity Reaction Status Date / Time sulfamethoxazole Allergy Rash Verified 02/07/21 13:56 [From ] trimethoprim [From ] Allergy Rash Verified 02/07/21 13:56 meloxicam AdvReac Other Verified 02/07/21 13:56 Surgical History no surgical history no surgical history Social History (Updated 02/07/21 @ 14:[address] Reece Valera MD) household members: none Smoking Status: Never smoker substance use type: does not use ROS ROS ED Constitutional Constitutional ED: Denies chills, fever(s), subjective or sweats Gastrointestinal Gastrointestinal: Denies nausea or vomiting Musculoskeletal Musculoskeletal: Denies arthralgias, back pain, myalgias or neck pain Integumentary Denies abscess or Abrasions Neurologic Neurologic: Denies paresthesias or weakness Hematologic/Lymphatic Hematologic/Lymphatic: Denies easy bleeding or easy bruising EXAM Physical Exam Const Vital Signs: 02/07/21 13:55 Temperature 98.6 F Temperature Source Temporal Pulse Rate 70 Respiratory Rate 16 Blood Pressure 127/71 H Blood Pressure Mean 89 Pulse Ox 100 Positive well nourished and well developed General Appearance ED: well developed and NAD HEENT normocephalic and atraumatic Eyes PERRL Eyes Narrative: Extract muscles are intact. Sclerae anicteric. Neck full ROM Resp normal respiratory effort Cardio regular rate and regular rhythm Extremity Negative for normal to inspection or full ROM Extremity Narrative: Unable to extend 108 degrees. She is able to extend to approximately 170 degrees and flex to 90 degrees. The right knee is swollen compared to left. The patellas not blottable. There is a small effusion. There is joint line tenderness laterally. Varus valgus stress testing causes pain laterally however she does not have any laxity. Cristina's test is negative. Modified Keiko's causes pain laterally no click was appreciated. General Extremety ED: Yes weight-bearing difficulty; Negative for cyanosis or edema General Extremity: weight-bearing difficulty; Negative for cyanosis or edema Neuro oriented x3, CN's II-XII intact bilaterally and moves all extremities Sensorium / Orientation: alert Motor Exam: strength 5/5 throughout Psych mental status grossly normal MDM MDM MDM Narrative Medical decision making narrative: Patient with a twisting mechanism injury. This may represent a meniscus injury or lateral collateral ligament sprain or possible PCL. Will obtain x-ray to rule out any bony abnormality. Since her daughter drove her here she was given a [place] tablet for her pain. She lists NSAID as allergy. We will need to determine type of reaction. Radiography X-Ray: - (4 view x-ray of the knee reveals degenerative changes and chondral calcinosis. There is no fracture noted. Patient took ibuprofen prior to coming. She was instructed to take ibuprofen for pain and was given the name of the orthopedist on-call and Dr. Leon service who she has seen in the past.) Diagnostic Testing: Clinical Impression(s) from Imaging Studies Knee X-Ray 02/07/21 14:10 IMPRESSION: Degenerative arthrosis. Chondrocalcinosis of the medial and lateral menisci. Electronically Signed: Festus Solis MD at 14:24 EDT , Service support , Discharge Plan Triage Chief Complaint: Lower Extremity Injury ED Provider: Valera,Reece Dx/Rx/DC Orders Clinical Impression: Strain of right knee Instructions: Treating?Strains and Sprains Prescriptions: No Action prednisone 20 MG tablet 60 mg PO DAILY Qty: 15 RF: 0 peg [id number] 15 ML drops 2 drp RIGHT EYE TID PRN PRN (Reason: Dry Eye) RF: 0 mirtazapine 15 MG tablet 15 mg PO QHS Qty: 30 RF: 0 valacyclovir 1,000 MG tablet 1,000 mg PO TID Qty: 21 RF: 0 Primary Care Provider: Frederic Luong Referrals: Jacinto Medrano DO [STAFF PHYSICIAN] - 1 Week if not improving Frederic Luong MD [Primary Care Provider] - Activity Restrictions/Additional Instructions: Apply ice to knee 6-8 times a day. Take 3 ibuprofen tablets every 6-8 hours for pain the next 2 to 3 days. Disposition Disposition: Home, Self Care
[2021-02-07] MEDS: HYDROcodone Bitartrate/Apap 5/325 Tablet PO (14:08)
--- NOTE | 2021-02-07 14:10 | RAD_ITS ---
STUDY: X-RAY - RIGHT KNEE REASON FOR EXAM: Female, 70 years old. Lateral and posterior pain following a twisting injury. TECHNIQUE: 4 view(s) of the knee. COMPARISON: None. FINDINGS: Normal visualized distal femur. Normal visualized proximal tibia and fibula. Normal proximal tibiofibular articulation. There is mild degenerative arthrosis of the medial femorotibial compartment. There is mild degenerative arthrosis of the lateral femorotibial compartment. There is mild degenerative arthrosis of the patellofemoral articulation. Chondrocalcinosis of the medial and lateral menisci. The soft tissue structures are unremarkable. RAD/Knee 4 or More Views IMPRESSION: Degenerative arthrosis. Chondrocalcinosis of the medial and lateral menisci. Electronically Signed: Festus Solis MD at 14:24 EDT , Service support ,
== END 2021-02-07 15:13 | disposition home or self-care (01) ==
PROVIDERS: Emergency Provider Emergency Medicine; PCP Internal Medicine
DX: S86.911A Strain of unspecified muscle(s) and tendon(s) at lower leg level, right leg, initial encounter (principal); X50.1XXA Overexertion from prolonged static or awkward postures, initial encounter
CPT/HCPCS: 73564; 99283

== ENCOUNTER 2021-08-12 09:24 | Emergency (ER) | payer MEDICARE, SELFPAY ==
[2021-08-12 09:24] VITALS: BP 142/87; PULSE 72; RESP 18; TEMP 36.2; O2SAT 100; BMI 22.4
--- NOTE | 2021-08-12 09:36 | RAD_ITS ---
STUDY: X-RAY - PELVIS AND RIGHT HIP REASON FOR EXAM: Female, 70 years old. Injury. Pain. TECHNIQUE: 4 views of the pelvis and hip. COMPARISON: None. FINDINGS: There is a non-specific bowel gas pattern. Normal visualized soft tissue structures. Osteopenia. Moderate arthrosis of the sacroiliac joints. Normal bilateral superior and inferior pubic rami. Moderate arthrosis of the symphysis pubis. Normal bilateral ischial tuberosities. Mild arthrosis of both hips. RAD/HIP, UNI W/ Pelvis 2-3 Views IMPRESSION: Osteopenia with osteoarthritic changes as described. No acute abnormality, evidence of erosive changes or fusion. Electronically Signed: Derick Funez MD at 10:50 EDT ,
--- NOTE | 2021-08-12 09:37 | RAD_ITS ---
STUDY: X-RAY - LUMBAR SPINE REASON FOR EXAM: Female, 70 years old. Injury. Pain. TECHNIQUE: 3 view(s) of the lumbar spine were obtained. COMPARISON: 01/30/2015. FINDINGS: Osteopenia. Normal lumbar lordosis. Mild rotatory levoscoliosis. There is a normal alignment of the vertebrae. Diffuse facet sclerosis unchanged. And intervertebral disc space narrowing most marked at L5-S1 with osteophyte formation. Mild intervertebral disc space narrowing at L3-4 and L4-5. The soft tissue structures are unremarkable. RAD/Lumbar Spine 2 or 3 Views IMPRESSION: Osteopenia with mild lower lumbosacral spondylosis. No acute abnormality, evidence of erosive changes or fusion. Electronically Signed: Derick Funez MD at 10:49 EDT ,
--- NOTE | 2021-08-12 09:38 | ED.VIS.BACK ---
HPI <SHERRY Cardenas - Last Filed: 08/12/21 11:26> History of Present Illness Chief Complaint: Back Narrative Narrative: 70-year-old female presents with acute on chronic right-sided low back pain and right hip pain. She has had pain in the right lower back and buttocks/hip for the last few months. She was helping her move furniture over the last few days and the pain worsened yesterday. No direct trauma or falls. There is no radiation down the thigh or lower leg. She states any movement makes it worse especially from sitting to standing. No weakness, numbness, tingling, saddle anesthesia, or bladder or bowel incontinence. She had a L5/S1 fusion about 30 years ago. PFSH <SHERRY Cardenas - Last Filed: 08/12/21 11:26> PFSH Home Medications ketorolac 1 drp LEFT EYE Q6H 08/12/21 [History Last Taken Unknown] ofloxacin 1 drp LEFT EYE Q6H 08/12/21 [History Last Taken Unknown] prednisolone acetate 1 drp LEFT EYE Q6H 08/12/21 [History Last Taken Unknown] prednisolone acetate drp 08/12/21 [History Last Taken Unknown] Allergy/AdvReac Type Severity Reaction Status Date / Time sulfamethoxazole Allergy Rash Verified 08/12/21 09:26 [From ] trimethoprim [From ] Allergy Rash Verified 08/12/21 09:26 meloxicam AdvReac Other Verified 08/12/21 09:26 Social History (Updated 02/07/21 @ 14:[address] Reece Valera MD) household members: none Smoking Status: Never smoker substance use type: does not use ROS <SHERRY Cardenas - Last Filed: 08/12/21 11:26> ROS ED ROS Narrative Constitutional: Negative for fever, chills, malaise. Eyes: Negative for visual change. ENT: Negative for sore throat, ear pain, rhinorrhea. CVS: Negative for palpitations, chest pain, syncope. Respiratory: Negative for shortness of breath, cough, orthopnea. GI: Negative for abdominal pain, nausea, vomiting, diarrhea, constipation, melena, hematochezia. : Negative for dysuria, hematuria or frequency. Neuro: Negative for headache, motor/sensory dysfunction. Skin: Negative for rash, abscess, or wound. Musc: Positive for back pain. No swelling or trauma. Heme: Negative for easy bruising, bleeding, lymphadenopathy. EXAM <SHERRY Cardenas - Last Filed: 08/12/21 11:26> Physical Exam Narrative Exam Narrative: CONST: Patient sitting in no acute distress. EYES: Normal inspection. ENT: Normal inspection, moist mucous membranes. NECK: Normal inspection. RESP: No respiratory distress, CTAB. CVS: Regular rate and rhythm, no murmur, no gallop. Back: Normal inspection, slight midline lumbar tenderness with no step-offs but more significant right lumbar paraspinal tenderness. SKIN: Color normal, no rash, warm, dry, intact. EXTREMITIES: Normal appearance, no pedal edema. Pain with right hip flexion. 5/5 bilateral hip flexion, knee flexion/extension, and DF/PF. Normal sensation light touch. 2+ DP pulses. NEURO: Oriented x4. PSYCH: Normal affect. Const Vital Signs: 08/12/21 09:24 Temperature 97.1 F L Temperature Source Temporal Pulse Rate 72 Respiratory Rate 18 Blood Pressure 142/87 H Blood Pressure Mean 105 Pulse Ox 100 Oxygen Delivery Method Room Air <Dr. Pj Avendano MD - Last Filed: 08/12/21 11:27> Physical Exam Const Vital Signs: 08/12/21 09:24 Temperature 97.1 F L Temperature Source Temporal Pulse Rate 72 Respiratory Rate 18 Blood Pressure 142/87 H Blood Pressure Mean 105 Pulse Ox 100 Oxygen Delivery Method Room Air MDM <SHERRY Cardenas - Last Filed: 08/12/21 11:26> [facility] Narrative Medical decision making narrative: Patient presents with acute on chronic low back pain and right hip pain after increased activity lifting furniture. She appears well and nontoxic. Vital signs within normal limits. Back and lower extremities are normal on inspection. She has slight midline lumbar tenderness with no step-offs but more musculoskeletal lumbar pain on the right. Lower extremity MSPs and reflexes are intact. There are no red flag symptoms concerning for cauda equina syndrome or epidural abscess. X-rays of the lumbar spine and right hip show osteopenia/osteoarthritis but no acute abnormalities or fractures. Patient's exam is consistent with sacral pain and was treated symptomatically with Toradol and oxycodone with some improvement. We discussed that she should continue Tylenol/NSAIDs at home and follow-up with her primary care doctor and she was discharged in stable condition. 1. Low back pain 2. Sacroilitis Radiography Diagnostic Testing: Clinical Impression(s) from Imaging Studies Hip/Pelvis X-Ray 08/12/21 09:36 IMPRESSION: Osteopenia with osteoarthritic changes as described. No acute abnormality, evidence of erosive changes or fusion. Electronically Signed: Derick Funez MD at 10:50 EDT , Lumbar Spine X-Ray 08/12/21 09:37 IMPRESSION: Osteopenia with mild lower lumbosacral spondylosis. No acute abnormality, evidence of erosive changes or fusion. Electronically Signed: Derick Funez MD at 10:49 EDT , <Dr. Pj Avendano MD - Last Filed: 08/12/21 11:27> MDM MDM Narrative Medical decision making narrative: Seen and evaluated independently and in conjunction with physician entry level assistant manager. Agree with notes above unless documented otherwise. Pain for about a month made worse after heavy lifting and activity, without radiation down the leg or bowel or bladder dysfunction. On exam, her pain and tenderness is right around the right SI joint. No sciatic notch tenderness, negative straight leg raises. I suspect this is probably sacroiliac joint pain, given instructions for PCP follow-up for physical therapy referral, and/or chiropractor follow-up, topical NSAIDs are reasonable, she may try lying on a tennis ball to see if that helps to reduce the joint, and other methods of supportive care advised Radiography Diagnostic Testing: Clinical Impression(s) from Imaging Studies Hip/Pelvis X-Ray 08/12/21 09:36 IMPRESSION: Osteopenia with osteoarthritic changes as described. No acute abnormality, evidence of erosive changes or fusion. Electronically Signed: Derick Funez MD at 10:50 EDT , Lumbar Spine X-Ray 08/12/21 09:37 IMPRESSION: Osteopenia with mild lower lumbosacral spondylosis. No acute abnormality, evidence of erosive changes or fusion. Electronically Signed: Derick Funez MD at 10:49 EDT Reading Location ID and State: [facility] / [place] , Service support , Discharge Plan Triage Chief Complaint: Back Other Complaint: Constipation ED Provider: Dione Wharton Dx/Rx/DC Orders Clinical Impression: Low back pain, Osteoarthritis, Osteopenia Instructions: ED Back Pain (Acute or Chronic), ED Sacroiliitis Prescriptions: No Action ofloxacin 0.3 % drops 1 drp LEFT EYE Q6H RF: 0 ketorolac 0.5 % drops 1 drp LEFT EYE Q6H RF: 0 prednisolone acetate 1 % drops,suspension 1 drp LEFT EYE Q6H RF: 0 prednisolone acetate 1 % drops,suspension RF: 0 Primary Care Provider: Frederic Luong Referrals: Frederic Luong MD [Primary Care Provider] - Activity Restrictions/Additional Instructions: May try Voltaren topical cream/gel to affected area. Disposition Disposition: Home, Self Care
[2021-08-12] MEDS: Ondansetron ODT 4 MG Tablet PO (09:58)
[2021-08-12] MEDS: Ketorolac 15 MG/ML Vial IM (09:58)
[2021-08-12] MEDS: oxyCODONE 5 MG Tablet PO (09:58)
[2021-08-12 11:37] VITALS: BP 131/66; PULSE 63; RESP 16; O2SAT 100
--- NOTE | 2021-08-15 14:51 | CASEMGMT ---
ED follow-up phone call: TRACY DEL TORO attempted to complete follow-up phone call. No answer, voice message left with return contact information.
== END 2021-08-12 11:39 | disposition home or self-care (01) ==
PROVIDERS: Emergency Provider Physician Assistant; PCP Internal Medicine; Visit Provider Physician Assistant
DX: M54.50 Low back pain, unspecified (principal); M46.1 Sacroiliitis, not elsewhere classified; M25.551 Pain in right hip; M47.817 Spondylosis without myelopathy or radiculopathy, lumbosacral region; M85.80 Other specified disorders of bone density and structure, unspecified site; R10.2 Pelvic and perineal pain
CPT/HCPCS: 72100; 73502; 96372; 99282

== ENCOUNTER 2022-02-17 19:29 | Emergency (ER) | payer MEDICARE, SELFPAY ==
[2022-02-17 19:30] VITALS: BP 159/72; PULSE 86; RESP 18; TEMP 36.8; O2SAT 96; BMI 25.0
--- NOTE | 2022-02-17 19:35 | RAD_ITS ---
STUDY: X-RAY - RIGHT RADIUS AND ULNA REASON FOR EXAM: Female, 71 years old. Pulled off balance by her dog with subsequent fall onto concrete injuring her right forearm 4 days ago. Bruising to the medial aspect of the forearm. Upon the mid forearm. TECHNIQUE: 2 view(s) of the forearm. COMPARISON: None. FINDINGS: Mild soft tissue swelling over the dorsum of the mid forearm. The soft tissues are otherwise unremarkable. Normal visualized radius. Normal visualized ulna. There is no acute fracture, dislocation or destructive osseous pathology. Mild degenerative changes of the wrist and elbow without dislocation. RAD/Forearm 2 Views IMPRESSION: Soft tissue swelling over the dorsum of the forearm. There is no fracture or dislocation. Electronically Signed: Bhargav Morrison DO at 19:56 EDT ,
--- NOTE | 2022-02-17 21:37 | EDS_ITS ---
HPI History of Present Illness Chief Complaint: Upper Extremity Injury Detail of Chief Complaint: Injury to right arm Informant: patient Narrative Narrative: Patient presents the emergency department complaint of an injury to her right arm that occurred 4 days ago when she sustained a fall. Patient states that she was walking her dog when she fell injuring her arm. Initially she did not think much of it. Patient then noticed a lump on the forearm and discoloration to her arm today and became more concerned. Patient denies striking her head or loss of consciousness. She denies neck pain, chest pain, or abdominal pain. Patient not on any blood thinners. PFSH PFSH Home Medications ketorolac 0.5 % eye drops 1 drp LEFT EYE Q6H 08/12/21 [History Last Taken Unknown] ofloxacin 0.3 % eye drops 1 drp LEFT EYE Q6H 08/12/21 [History Last Taken Unknown] Allergy/AdvReac Type Severity Reaction Status Date / Time sulfamethoxazole Allergy Rash Verified 02/17/22 19:31 [From ] trimethoprim [From ] Allergy Rash Verified 02/17/22 19:31 meloxicam AdvReac Other Verified 02/17/22 19:31 Social History (Updated 02/07/21 @ 14:[address] Reece Valera MD) household members: none Smoking Status: Never smoker substance use type: does not use ROS ROS ED Review of Systems ROS Unobtainable: other Constitutional Constitutional ED: Reports lethargy; Denies chills, fever(s), sweats or weight loss Eyes Eyes: Denies blurry vision, change in vision or diplopia ENT ENT ED: Denies rhinorrhea or sore throat Cardiovascular Cardiovascular: Denies chest pain, orthopnea or racing heartbeat Respiratory/Chest Respiratory/Chest: Denies cough, dyspnea, dyspnea on exertion, orthopnea or sputum Gastrointestinal Gastrointestinal: Denies abdominal pain, diarrhea, nausea or vomiting Genitourinary Genitourinary ED: Denies dysuria, hematuria or urinary frequency Musculoskeletal Musculoskeletal: Reports other Details: Right arm injury/pain ; Denies arthralgias, back pain, myalgias or neck pain Integumentary Denies abscess, Abrasions or rash Neurologic Neurologic: Denies headache(s) or weakness Psychiatric Psychiatric: Denies anxiety, depression or suicidal thoughts Endocrine Endocrinology: Denies polydipsia, polyphagia or polyuria Hematologic/Lymphatic Hematologic/Lymphatic: Denies easy bleeding, easy bruising or lymphadenopathy Allergic/Immunologic Allergic/Immunologic ED: Denies mouth swelling, tongue swelling or urticaria EXAM Physical Exam Const Vital Signs: 02/17/22 19:30 Temperature 98.3 F Temperature Source Temporal Pulse Rate 86 Respiratory Rate 18 Blood Pressure 159/72 H Blood Pressure Mean 101 Pulse Ox 96 Oxygen Delivery Method Room Air Positive well nourished and well developed General Appearance ED: well developed and NAD HEENT Reports TM's clear and moist mucous membranes normocephalic and atraumatic; Negative for trauma or tenderness Tympanic Membrane ED: Yes TM's clear Eyes PERRL and EOMs intact bilaterally General Eye ED: Negative for pale conjunctiva or scleral icterus Neck no lymphadenopathy, supple and no JVD General: Negative for tenderness Chest Wall inspection of chest normal and palpation of chest normal Chest: Negative for tenderness Resp normal respiratory effort and clear to auscultation bilaterally Effort and Inspection: Negative for respiratory distress or pain with movement Auscultation: Negative for rhonchi, wheezes or diminished lung sounds Cardio regular rate, regular rhythm, S1 normal heart sound, S2 normal heart sound and no murmurs Peripheral Pulses: pulses 2+ throughout GI normal to inspection, nondistended, normoactive bowel sounds, soft to palpation, non-tender, non-distended and no masses Back/Spine no CVA tenderness and no thoracic nor lumbar tenderness Extremity Extremity Narrative: Right arm-patient has an area of soft tissue swelling over the dorsal aspect of the forearm proximally measuring approximately 2 cm in diameter that is freely movable within the soft tissues and I suspect this is a hematoma. Patient has diffuse ecchymosis and bruising about the dorsum and volar aspect of the forearm. She has minimal bony tenderness on exam at the elbow and wrist. Neurovascularly intact. General Extremety ED: Negative for edema General Extremity: Negative for edema Neuro oriented x3, CN's II-XII intact bilaterally, no sensory deficits noted and gait normal Sensorium / Orientation: awake, alert, oriented to person, oriented to place and oriented to time Motor Exam: strength 5/5 throughout and strength abnormal Psych mental status grossly normal Skin no rashes or lesions noted and no wounds MDM MDM MDM Narrative Medical decision making narrative: I suspect patient has a soft tissue hematoma with ecchymosis and bruising diffusely about the forearm. I do not feel any further work-up is indicated. Patient will take Tylenol for discomfort. She does not want a sling or anything for pain. Patient advised to follow-up with her primary care physician within the next 5 to 7 days. Radiography Diagnostic Testing: Clinical Impression(s) from Imaging Studies Forearm X-Ray 02/17/22 19:35 IMPRESSION: Soft tissue swelling over the dorsum of the forearm. There is no fracture or dislocation. Electronically Signed: Bhargav Morrison DO at 19:56 EDT Reading Location ID and State: [address] [place] [address] Tel [phone], Service support , 2 view x-ray of right forearm obtained interpreted by myself no acute fractures. Radiology in agreement and they did note soft tissue swelling over the dorsum of the forearm. Discharge Plan Triage Chief Complaint: Upper Extremity Injury ED Provider: Brigida Ruiz Dx/Rx/DC Orders Clinical Impression: Contusion of forearm, right, Hematoma Instructions: Bruises (Contusions) Prescriptions: No Action ofloxacin 0.3 % drops 1 drp LEFT EYE Q6H ketorolac 0.5 % drops 1 drp LEFT EYE Q6H Primary Care Provider: Frederic Luong Referrals: Frederic Luong MD [Primary Care Provider] - 5-7 Days Disposition Disposition: Home, Self Care
[2022-02-17 21:44] VITALS: PULSE 69; RESP 18; O2SAT 100
== END 2022-02-17 21:50 | disposition home or self-care (01) ==
PROVIDERS: Emergency Provider Emergency Medicine; PCP Internal Medicine; Visit Provider Emergency Medicine
DX: S50.11XA Contusion of right forearm, initial encounter (principal); W18.30XA Fall on same level, unspecified, initial encounter; Y93.K1 Activity, walking an animal
CPT/HCPCS: 73090; 99282

== ENCOUNTER 2022-07-15 13:43 | Emergency (ER) | payer MEDICARE, SELFPAY ==
[2022-07-15 13:43] VITALS: BP 141/72; PULSE 84; RESP 18; TEMP 35.8; O2SAT 98; BMI 26.4
--- NOTE | 2022-07-15 15:11 | EX.ED.GENINJ ---
HPI History of Present Illness Chief Complaint: Other, Pain/Inj Narrative Narrative: 71-year-old female presenting with right hip and leg pain. She states it hurts pretty diffusely all throughout the leg. Patient states this started this last week. She had x-rays performed and she believes this included the hip. Today she woke up with severe pain in the right hip and states it was all the way down her leg and she states he is unable to bear weight on her leg. She states she was carried by 2 people to the car to assist her. She denies any trauma. He states he has history of sciatica and he does not feel this way. No numbness. He states he has been trying ibuprofen and Tylenol for this. PFSH PFSH Home Medications ketorolac 0.5 % eye drops 1 drp LEFT EYE Q6H 08/12/21 [History Last Taken Unknown] ofloxacin 0.3 % eye drops 1 drp LEFT EYE Q6H 08/12/21 [History Last Taken Unknown] cyclobenzaprine 10 mg tablet 10 mg PO TID PRN Muscle Spasm #20 TABLETS 07/15/22 [Rx Last Taken Unknown] ibuprofen 600 mg tablet 600 mg PO Q8H PRN pain #30 TABLETS 07/15/22 [Rx Last Taken Unknown] Allergy/AdvReac Type Severity Reaction Status Date / Time sulfamethoxazole Allergy Rash Verified 07/15/22 13:45 [From ] trimethoprim [From ] Allergy Rash Verified 07/15/22 13:45 meloxicam AdvReac Other Verified 07/15/22 13:45 Social History household members: none Smoking Status: Never smoker substance use type: does not use ROS ROS ED Constitutional Constitutional ED: Denies chills, fever(s) or subjective Eyes Eyes: Denies change in vision or other ENT ENT ED: Denies rhinorrhea or sore throat Cardiovascular Cardiovascular: Denies chest pain or palpitations Respiratory/Chest Respiratory/Chest: Denies cough or dyspnea Gastrointestinal Gastrointestinal: Denies abdominal pain or constipation Musculoskeletal Musculoskeletal: Reports other Details: Diffuse right leg pain ; Denies back pain EXAM Physical Exam Const Vital Signs: 07/15/22 13:43 07/15/22 15:53 07/15/22 15:53 Temperature 96.4 F L Temperature Source Temporal Pulse Rate 84 78 78 Respiratory Rate 18 16 16 Blood Pressure 141/72 H Blood Pressure Mean 95 Pulse Ox 98 97 100 Oxygen Delivery Method Room Air Room Air Positive well nourished General Appearance ED: NAD KARENENT atraumatic Chest Wall inspection of chest normal and palpation of chest normal Cardio regular rhythm Back/Spine normal to inspection Extremity Extremity Narrative: Tenderness to palpation over the right hip and over the right knee. Patient refuses to flex her hip or knee on the right. I am able to move this on my own. She reports pain in the right hip and lateral knee with range of motion. No rash, edema, swelling. Compartments are soft. Pedal pulses 2+. Sensation intact throughout Neuro oriented x3 and CN's II-XII intact bilaterally Sensorium / Orientation: alert Psych mental status grossly normal Skin no rashes or lesions noted MDM MDM MDM Narrative Medical decision making narrative: Patient with right hip pain. This is been ongoing and she is already had images. She was able to pull them up on her phone and they show degenerative changes in the interpretation. There is no acute fractures. Patient's exam consistent with muscular strain. Patient was given Norflex and Toradol in the ER. She was given cyclobenzaprine and ibuprofen for home. She is counseled on stretching exercises. She was also counseled to follow-up with her PCP to ensure resolution versus needing physical therapy. She was given crutches for home. Impression: 1. right hip strain Discharge Plan Triage Chief Complaint: Other, Pain/Inj ED Provider: Sony Eli Dx/Rx/DC Orders Instructions: ED Hip Strain, ED Muscle Strain, Extremity Prescriptions: New cyclobenzaprine 10 mg tablet 10 mg PO TID PRN (Reason: Muscle Spasm) Qty: 20 0RF ibuprofen 600 mg tablet 600 mg PO Q8H PRN (Reason: pain) Qty: 30 0RF No Action ofloxacin 0.3 % drops 1 drp LEFT EYE Q6H ketorolac 0.5 % drops 1 drp LEFT EYE Q6H Primary Care Provider: Frederic Luong Referrals: Frederic Luong MD [Primary Care Provider] - Disposition Disposition: Home, Self Care Discharge Date/Time: 07/15/22 15:54
[2022-07-15] MEDS: Ketorolac 15 MG/ML Vial IM (15:16)
[2022-07-15] MEDS: Orphenadrine 60 MG/2 ML Ampul IM (15:16)
[2022-07-15 15:53] VITALS: PULSE 78; RESP 16; O2SAT 100; O2SAT 97
== END 2022-07-15 15:54 | disposition home or self-care (01) ==
PROVIDERS: Emergency Provider Student in an Organized Health Care Education/Training Program; PCP Internal Medicine; Visit Provider Student in an Organized Health Care Education/Training Program
DX: S73.101A Unspecified sprain of right hip, initial encounter (principal); X58.XXXA Exposure to other specified factors, initial encounter
CPT/HCPCS: 96372; 99283

== ENCOUNTER → 2022-07-17 | Outpatient (CLI) | payer MEDICARE, SELFPAY ==
--- NOTE | 2022-07-17 14:24 | VDLE_ITS ---
Reason For Study: Pain RIGHT LEFT GSV is normal. CFV is compressible, spontaneous, phasic, CFV is compressible, spontaneous, phasic, competent, and demonstrates normal competent and demonstrates normal augmentation. augmentation. FV is compressible, spontaneous, phasic, competent and demonstrates normal augmentation. POP V is compressible, spontaneous, phasic, competent and demonstrates normal augmentation. T/P Trunk is compressible. PTV is compressible. RT PerV is compressible. Procedure This is a venous duplex using B-mode, color flow and spectral Doppler. Exam performed in department. A preliminary report was called and/or faxed to Dr. Luong. VL/Venous Duplex US, Unilateral Interpretation Summary There is no evidence of right lower extremity deep vein thrombosis. Right great saphenous vein appears patent and compressible segmentally. Normal flow patterns left common f emoral vein Ordering Physician: Frederic Luong Referring Physician: Frederic Luong M.D. Performed By: Senait Gutierrez RVT
== END | disposition home or self-care (01) ==
PROVIDERS: PCP Internal Medicine; Visit Provider Internal Medicine
DX: M79.604 Pain in right leg (principal)
CPT/HCPCS: 93971

== ENCOUNTER 2023-04-13 17:44 | Emergency (ER) | payer MEDICARE, SELFPAY ==
[2023-04-13 17:47] VITALS: BP 157/63; PULSE 78; RESP 14; TEMP 36.8; O2SAT 100; BMI 25.0
--- NOTE | 2023-04-13 18:47 | ED.VIS.DENTA ---
HPI History of Present Illness Chief Complaint: Dental Informant: patient Narrative Narrative: Patient had all of her teeth extracted this morning and has not been able to control bleeding from at least one of the areas. She is on no antiplatelet or anticoagulant medications. She has no systemic symptoms of lightheadedness or anemia. PFSH PFSH Home Medications ketorolac 0.5 % eye drops 1 drp LEFT EYE Q6H 08/12/21 [History Last Taken Unknown] ofloxacin 0.3 % eye drops 1 drp LEFT EYE Q6H 08/12/21 [History Last Taken Unknown] cyclobenzaprine 10 mg tablet 10 mg PO TID PRN Muscle Spasm #20 TABLETS 07/15/22 [Rx Last Taken Unknown] ibuprofen 600 mg tablet 600 mg PO Q8H PRN pain #30 TABLETS 07/15/22 [Rx Last Taken Unknown] Allergy/AdvReac Type Severity Reaction Status Date / Time sulfamethoxazole Allergy Rash Verified 04/13/23 17:46 [From ] trimethoprim [From ] Allergy Rash Verified 04/13/23 17:46 meloxicam AdvReac Other Verified 04/13/23 17:46 Social History household members: none Smoking Status: Never smoker substance use type: does not use ROS ROS ED Constitutional Constitutional ED: Denies chills or fever(s) Eyes Eyes: Denies change in vision or double vision ENT ENT ED: Reports dental pain and other Details: Postoperative dental bleeding see HPI ; Denies sinus pain or throat swelling Cardiovascular Cardiovascular: Denies chest pain or palpitations Respiratory/Chest Respiratory/Chest: Denies cough or dyspnea Integumentary Denies abscess or rash Neurologic Neurologic: Denies headache(s), paresthesias or weakness EXAM Physical Exam Const Vital Signs: 04/13/23 17:47 Temperature 98.2 F Temperature Source Temporal Pulse Rate 78 Respiratory Rate 14 Blood Pressure 157/63 H Blood Pressure Mean 94 Pulse Ox 100 Oxygen Delivery Method Room Air Positive well nourished and well developed General Appearance ED: well developed and NAD HEENT HEENT Narrative: Post operative gingival changes noted, no signs of infection or acute tenderness. There is dark blood actively oozing from site at tooth #14 or 15. No active bleeding from anywhere else. No trismus. Tongue and oral mucosa are normal. Airway patent no stridor or difficulty handling secretions. Face and Sinus: sinuses nontender Throat: posterior oropharynx normal Eyes PERRL and EOMs intact bilaterally Neck no lymphadenopathy and supple Resp normal respiratory effort Neuro oriented x3 and CN's II-XII intact bilaterally Sensorium / Orientation: alert Gait (Neuro): normal gait Psych mental status grossly normal and thought process normal Skin no rashes or lesions noted and no wounds MDM MDM MDM Narrative Medical decision making narrative: On further inspection patient is bleeding from one particular area and it appears to be arteriolar. This is in the left maxillary gingiva. I placed a bulk of gauze soaked in let, along with a piece of Surgifoam against the gingiva and had the patient bite down to apply pressure. This did not stop the bleeding. This was reattempted with a fresh piece of Surgifoam, there was a lot of clot there, but as soon as I touched the gingiva/Surgifoam, the bleeding restarted and at that point I had her rinse everything, temporarily placed a pledget against the area and bite down until it was able to get some lidocaine with epinephrine, 2%. I injected 0.5 cc total in and around this area. I then placed a fresh piece of Surgifoam and a bulk of gauze against this and had a bite down. On reexamination good hemostasis is obtained and the area is totally clean of any loose blood or clot even without the Surgif[place]am in place. At this time she is stable hemodynamically and clinically, and comfortable going home. Given the rest of the discharge home with instructions for use if needed and we discussed reasons to return here. She is comfortable with that plan. Procedures Other Procedures Procedure(s): Hemostasis -- see above Discharge Plan Triage Chief Complaint: Dental ED Provider: Pj Avendano Dx/Rx/DC Orders Clinical Impression: Postoperative bleeding from mouth Instructions: ED Post Op Wound Check, Bleeding Prescriptions: No Action ofloxacin 0.3 % drops 1 drp LEFT EYE Q6H ketorolac 0.5 % drops 1 drp LEFT EYE Q6H cyclobenzaprine 10 mg tablet 10 mg PO TID PRN (Reason: Muscle Spasm) Qty: 20 0RF ibuprofen 600 mg tablet 600 mg PO Q8H PRN (Reason: pain) Qty: 30 0RF Primary Care Provider: Frederic Luong Referrals: Frederic Luong MD [Primary Care Provider] - Dentist,Your [STAFF PHYSICIAN] - As Needed Activity Restrictions/Additional Instructions: NO hot beverages for 24 hrs. Nothing more to eat or drink tonight at all (unless you have an antibiotic pill to still take). Disposition Disposition: Home, Self Care
[2023-04-13] MEDS: Lidocaine/Epi/Tetracaine 50 ML 1 APPLIC TOPICAL (18:50)
--- OUTSIDE RECORDS SUMMARY | 2023-04-13 20:48 | XMS RPT_ITS | CCD ---
Author Name Unknown Address [address] [place] [address] Organization [facility] Care Team Providers Care Waste Transportation Technician Name Role Phone Hebert BLOOD, Frederic Carrera Primary Care Provider [phone] FREDERIC AMBROSIO Primary Care Unavailable OLDER, MOON Attending Unavailable HEBERT, FREDERIC Carrera Referring Unavailable AMBROSIO, FREDERIC Carrera Primary Care Unavailable AMBROSIO, FREDERIC Carrera Referring Unavailable AMBROSIO, FREDERIC Carrera Primary Care Unavailable AMBROSIO, FREDERIC Carrera Attending Unavailable AMBROSIO, FREDERIC Carrera Primary Care Unavailable AMBROSIO, FREDERIC Carrera Referring Unavailable AMBROSIO, FREDERIC Carrera Primary Care Unavailable AMBROSIO, FREDERIC Carrera Referring Unavailable AMBROSIO, FREDERIC Carrera Primary Care Unavailable AMBROSIO, FREDERIC Carrera Primary Care Unavailable AMBROSIO, FREDERIC Carrera Attending Unavailable AMBROSIO, FREDERIC Carrera Primary Care Unavailable REHANA GARCIA Referring Unavailable AMBROSIO, FREDERIC Carrera Primary Care Unavailable AMBROSIO, FREDERIC Carrera Primary Care Unavailable OLDER, MOON Referring Unavailable AMBROSIO, FREDERIC Carrera Primary Care Unavailable OLDER, MOON Attending Unavailable BERKLEY CHEN Referring Unavailable ALEN ARROYO Attending Unavailable AMBROSIO, FREDERIC Carrera Primary Care Unavailable AMBROSIO, FREDERIC Carrera Primary Care Unavailable OLDER, MOON Referring Unavailable BERKLEY CHEN Attending Unavailable Hebert BLOOD, Frederic Carrera Primary Care Provider [phone] Allergies Allergy Classification Reported Allergen(s) Allergy Type Date of Onset Reaction(s) Facility (20 sources) meloxicam; Translations: [MELOXICAM] Drug Allergy 10-22-19 13 Other: See Comments [facility] Work Phone: (20 sources) Sulfamethoxazole / Trimethoprim Drug Allergy 02-06-19 98 [facility] Work Phone: (1 source) OTHER; Translations: [OTHER] Propensity to adverse reactions (disorder) 02-06-19 98 [facility] Repository Medications Current Medications Medication Drug Class(es) Dates Sig (Normalized) Sig (Original) acetaminophen 325 mg / HYDROcodone bitartrate 5 mg oral tablet (2 sources) Opioid Agonist Start: 07-17-2022 End: 07-22-2022 take 1 tablet by mouth every eight hours as needed for pain HYDROcodone-aceta minophen (NORCO) 5-325 mg per tablet Indications: Acute leg pain, right Take 1 tablet by mouth every 8 hours as needed for pain for up to 5 days. 15 tablet 0 07/17/2022 07/22/2022 Active Completed/Discontinued Medications Medication Drug Class(es) Dates Sig (Normalized) Sig (Original) 8 hr acetaminophen 650 mg extended release oral tablet (17 sources) take 1 tablet by mouth every eight hours as needed acetaminophen 650 mg CR tablet Take 650 mg by mouth every 8 hours as needed. 0 Active Problems Active Problems Problem Classification Problem Date Documented Da te Episodic/Chronic Anxiety disorders (20 sources) Mixed anxiety and depressive disorder; Translations: [Anxiety disorder, unspecified] Onset: 05-04-2015 05-04-2015 Chronic Disorders of lipid metabolism (20 sources) Mixed hyperlipidemia; Translations: [Mixed hyperlipidemia] Onset: 09-29-2011 09-29-2011 Chronic Genitourinary symptoms and ill-defined conditions (20 sources) Female stress incontinence; Translations: [Stress incontinence (female) (male)] Onset: 10-21-2013 10-21-2013 Chronic Immunizations and screening for infectious disease (1 source) Patient encounter status; Translations: [Encounter for immunization] Episodic Nutritional deficiencies (20 sources) Vitamin D deficiency; Translations: [Vitamin D deficiency, unspecified] Onset: 09-18-2012 09-18-2012 Chronic Osteoporosis (5 sources) Senile osteoporosis; Translations: [Age-related osteoporosis without current pathological fracture] Onset: 08-11-2022 08-11-2022 Chronic Other and unspecified benign neoplasm (3 sources) History of polyp of colon; Translations: [Personal history of colonic polyps] Onset: 12-28-2022 12-01-2022 Episodic Other and unspecified benign neoplasm (1 source) Personal history of colonic polyps; Translations: [History of colonic polyps] Onset: 12-28-2022 Episodic Other gastrointestinal disorders (20 sources) Irritable bowel syndrome; Translations: [Irritable bowel syndrome without diarrhea] Onset: 11-21-2005 07-28-2009 Chronic Other lower respiratory disease (1 source) Cough; Translations: [Cough] Episodic Other nervous system disorders (1 source) Abnormal gait; Translations: [Unspecified abnormalities of gait and mobility] Episodic Other non-traumatic joint disorders (1 source) Pain in right hip joint; Translations: [Pain in right hip] 11-17-2022 Episodic Other screening for suspected conditions (not mental disorders or infectious disease) (20 sources) Finding related to measurement of toxic substance; Translations: [Abnormal level of other drugs, medicaments and biological substances in specimens from other organs, systems and tissues] Onset: 05-05-2015 05-05-2015 Episodic Residual codes; unclassified (1 source) Pain; Translations: [Pain, unspecified] Episodic Past or Other Problems Problem Classification Problem Date Documented Da te Episodic/Chronic Other and unspecified benign neoplasm (20 sources) Benign neoplasm of colon; Translations: [Benign neoplasm of colon, unspecified] Onset: 11-22-2007 04-11-2021 Episodic Other connective tissue disease (1 source) Pain in right leg; Translations: [Acute leg pain, right] Onset: 07-20-2022 Episodic Other nervous system disorders (1 source) Anesthesia of skin; Translations: [Numbness and tingling] Onset: 09-05-2022 Episodic Other nervous system disorders (1 source) Paresthesia of skin; Translations: [Numbness and tingling] Onset: 09-05-2022 Episodic Other non-traumatic joint disorders (20 sources) Pain in lower limb; Translations: [Pain in unspecified knee] Onset: 03-05-2006 07-28-2009 Episodic Other non-traumatic joint disorders (1 source) Pain in right knee; Translations: [Acute pain of right knee] Onset: 09-05-2022 Episodic Other non-traumatic joint disorders (1 source) Pain in right hip; Translations: [Right hip pain] Onset: 09-05-2022 Episodic Residual codes; unclassified (20 sources) Insomnia; Translations: [Insomnia, unspecified] Onset: 05-04-2015 05-04-2015 Episodic Residual codes; unclassified (1 source) Pain, unspecified; Translations: [Pain] Onset: 03-31-2022 Episodic Spondylosis; intervertebral disc disorders; other back problems (20 sources) Low back pain; Translations: [Lumbago] Onset: 07-16-2006 04-11-2021 Episodic Results Test Name Value Interpretation Reference Range Facil ity Vital Signs Date Time Vital Sign Value Performing Clinician Faci lity 12-28-2022 11:26-0400 Diastolic blood pressure 69 mm[Hg] Alen Arroyo MD Work Phone: [facility] 12-28-2022 11:26-0400 Heart rate 56 /min Alen Arroyo MD Work Phone: [facility] 12-28-2022 11:26-0400 Respiratory rate 16 /min Alen Arroyo MD Work Phone: [facility] 12-28-2022 11:26-0400 SaO2% (BldA) [Mass fraction] 100 % Alen Arroyo MD Work Phone: [facility] 12-28-2022 11:26-0400 Systolic blood pressure 158 mm[Hg] Alen Arroyo MD Work Phone: [facility] 12-28-2022 09:52-0400 Body temperature 98.01 [degF] Alen Arroyo MD Work Phone: [facility] 12-28-2022 09:52-0400 Body weight 60.4 kg Alen Arroyo MD Work Phone: [facility] 12-01-2022 10:07-0400 Body height 157.5 cm Berkley Chen PA-C Work Phone: [facility] 12-01-2022 10:07-0400 Body temperature 98.1 [degF] Berkleygiorgio Scottf PA-C Work Phone: [facility] 12-01-2022 10:07-0400 Body weight 60.42 kg Berkleygiorgio Chen PA-C Work Phone: [facility] 12-01-2022 10:07-0400 Diastolic blood pressure 86 mm[Hg] Berkley April PA-C Work Phone: [facility] 12-01-2022 10:07-0400 Heart rate 89 /min Berkley Yah-Ta-Hey PA-C Work Phone: [facility] 12-01-2022 10:07-0400 SaO2% (BldA) [Mass fraction] 98 % Berkley Yah-Ta-Hey PA-C Work Phone: [facility] 12-01-2022 10:07-0400 Systolic blood pressure 138 mm[Hg] Berkleygiorgio Scottf PA-C Work Phone: [facility] 07-20-2022 11:04-0400 Body weight 61.24 kg Frederic Ambrosio MD Work Phone: [facility] 07-20-2022 11:04-0400 Diastolic blood pressure 78 mm[Hg] Frederic Ambrosio MD Work Phone: [facility] 07-20-2022 11:04-0400 Heart rate 80 /min Frederic Ambrosio MD Work Phone: [facility] 07-20-2022 11:04-0400 Respiratory rate 16 /min Frederic Ambrosio MD Work Phone: [facility] 07-20-2022 11:04-0400 Systolic blood pressure 134 mm[Hg] Frederic Ambrosio MD Work Phone: [facility] 07-13-2022 11:45-0400 Diastolic blood pressure 81 mm[Hg] Frederic Ambrosio MD Work Phone: [facility] 07-13-2022 11:45-0400 Heart rate 81 /min Frederic Ambrosio MD Work Phone: [facility] 07-13-2022 11:45-0400 Systolic blood pressure 137 mm[Hg] Frederic Ambrosio MD Work Phone: [facility] 07-13-2022 11:40-0400 Body weight 61.69 kg Frederic Ambrosio MD Work Phone: [facility] 07-13-2022 11:40-0400 Respiratory rate 16 /min Frederic Ambrosio MD Work Phone: [facility] 03-31-2022 11:07-0500 Body temperature 98.01 [degF] Rehana Garcia APRN.[employer] REPRESENTATIVE Work Phone: [facility] 03-31-2022 11:07-0500 Body weight 61.6 kg Rehana Garcia APRN.[employer] REPRESENTATIVE Work Phone: [facility] 03-31-2022 11:07-0500 Diastolic blood pressure 82 mm[Hg] Rehana Garcia APRN.[employer] REPRESENTATIVE Work Phone: [facility] 03-31-2022 11:07-0500 Heart rate 82 /min Rehana Garcia APRN.[employer] REPRESENTATIVE Work Phone: [facility] 03-31-2022 11:07-0500 Respiratory rate 18 /min Rehana Garcia APRN.[employer] REPRESENTATIVE Work Phone: [facility] 03-31-2022 11:07-0500 SaO2% (BldA) [Mass fraction] 99 % Rehana Garcia APRN.[employer] REPRESENTATIVE Work Phone: [facility] 03-31-2022 11:07-0500 Systolic blood pressure 144 mm[Hg] Rehana Garcia APRN.[employer] REPRESENTATIVE Work Phone: [facility] 01-06-2022 10:07-0400 Body height 150.5 cm Moon Older LEAN [employer] SENIOR SPECIALIST.[employer] REPRESENTATIVE Work Phone: [facility] 01-06-2022 10:07-0400 Body temperature 96.69 [degF] Moon Older LE[employer] SENIOR SPECIALIST.[employer] REPRESENTATIVE Work Phone: [facility] 01-06-2022 10:07-0400 Body weight 60.78 kg Moon Older LE[employer] SENIOR SPECIALIST.[employer] REPRESENTATIVE Work Phone: [facility] 01-06-2022 10:07-0400 Diastolic blood pressure 68 mm[Hg] Moon Older LE[employer] SENIOR SPECIALIST.[employer] REPRESENTATIVE Work Phone: [facility] 01-06-2022 10:07-0400 Heart rate 83 /min Moon Older [employer] SENIOR SPECIALIST.[employer] REPRESENTATIVE Work Phone: [facility] 01-06-2022 10:07-0400 Respiratory rate 16 /min Moon Older [employer] SENIOR SPECIALIST.[employer] REPRESENTATIVE Work Phone: [facility] 01-06-2022 10:07-0400 SaO2% (BldA) [Mass fraction] 99 % Moon Older [employer] SENIOR SPECIALIST.[employer] REPRESENTATIVE Work Phone: [facility] 01-06-2022 10:07-0400 Systolic blood pressure 110 mm[Hg] Moon Older [employer] SENIOR SPECIALIST.[employer] REPRESENTATIVE Work Phone: [facility] 07-05-2021 10:10-0400 Body temperature 98.29 [degF] Riaz [facility] [employer] SENIOR SPECIALIST.[employer] REPRESENTATIVE Work Phone: [facility] 07-05-2021 10:10-0400 Body weight 60.42 kg Riaz [facility] [employer] SENIOR SPECIALIST.[employer] REPRESENTATIVE Work Phone: [facility] 07-05-2021 10:10-0400 Diastolic blood pressure 82 mm[Hg] [facility]iaz [facility] LE[employer] SENIOR SPECIALIST.[employer] REPRESENTATIVE Work Phone: [facility] 07-05-2021 10:10-0400 Heart rate 75 /min Riaz [facility] LE[employer] SENIOR SPECIALIST.[employer] REPRESENTATIVE Work Phone: [facility] 07-05-2021 10:10-0400 Respiratory rate 18 /min Riaz [facility] LE[employer] SENIOR SPECIALIST.[employer] REPRESENTATIVE Work Phone: [facility] 07-05-2021 10:10-0400 SaO2% (BldA) [Mass fraction] 98 % Riaz [facility] LE[employer] SENIOR SPECIALIST.[employer] REPRESENTATIVE Work Phone: [facility] 07-05-2021 10:10-0400 Systolic blood pressure 138 mm[Hg] Riaz [facility] LE[employer] SENIOR SPECIALIST.[employer] REPRESENTATIVE Work Phone: [facility] Encounters Encounter Date Encounter Type Care Provider Facility Start: 12-28-2022 End: 12-28-2022 ambulatory BERKLEY APRIL Facility:[facility] Start: 12-28-2022 End: 12-28-2022 Subsequent hospital visit by physician Alen Arroyo MD Work Phone: Ambulatory Surgery Procedures Date Procedure Procedure Detail Performing Clinician Start: 12-28-2022 Colonoscopy flx dx w /collj spec when pfrmd Berkley Chen PA-C Work Phone: Start: 12-28-2022 Colonoscopy Alen quispe MD Work Phone: Start: 08-01-2022 End: 08-01-2022 Mammography Frederic Hill Work Phone: Start: 01-06-2022 INFLUENZA SEASONAL QUADRIVALENT HIGH DOSE AGE 65+ Moon Older [employer] SENIOR SPECIALIST.[employer] REPRESENTATIVE Work Phone: Start: 01-06-2022 Lipid 1996 panel - S salo or Plasma Alen Arroyo MD Work Phone: Start: 02-06-2014 Mammography Riaz Javier thomson [employer] SENIOR SPECIALIST.[employer] REPRESENTATIVE Work Phone: Start: 05-23-2013 Colonoscopy Riaz thomson [employer] SENIOR SPECIALIST.[employer] REPRESENTATIVE Work Phone: Plan of Treatment Date Care Activity Detail Author Start: 03-31-2032 Urine microalbumin profile [facility] Start: 12-29-2027 Colonoscopy Colonoscopy [facility] Start: 12-29-2027 Colorectal Cancer Screening Colorectal Cancer Screening [facility] Start: 01-06-2027 Lipid 1996 panel - S salo or Plasma Lipid Screening [facility] Start: 01-06-2027 LIPID SCREEN LIPID SCREEN [facility] Start: 07-13-2025 DIABETES SCREEN DIABETES SCREEN [facility] Start: 07-13-2025 Diabetes Screening Diabetes Screenin g [facility] Start: 01-06-2025 DIABETES SCREEN DIABETES SCREEN [facility] Start: 08-02-2023 Mammography [facility] Start: 07-14-2023 COVID-19 VACCINE (3 - Booster for Pfizer series) COVID-19 VACCINE (3 - Booster for Pfizer series) [facility] Immunizations Immunization Date Immunization Notes Care Provider Jena alarcon 03-31-2022 tetanus toxoid, reduced diphtheria toxoid, and acellular pertussis vaccine, adsorbed Rehana Garcia [employer] SENIOR SPECIALIST.[employer] REPRESENTATIVE Work Phone: [facility] 01-06-2022 influenza, high-dose , quadrivalent vaccine (FLUZONE HIGH DOSE QUADRIVALENT) Moon Older [employer] SENIOR SPECIALIST.[employer] REPRESENTATIVE Work Phone: [facility] Work Phone: 01-06-2022 influenza virus vaccine, unspecified formulation Alen Arroyo MD Work Phone: [facility] 01-13-2015 influenza, injectabl e, quadrivalent, contains preservative Riaz Flores [employer] SENIOR SPECIALIST.[employer] REPRESENTATIVE Work Phone: [facility] 12-29-2013 influenza, seasonal, injectable Riaz Flores [employer] SENIOR SPECIALIST.[employer] REPRESENTATIVE Work Phone: [facility] 01-29-2013 influenza, seasonal, injectable Rehana Garcia LE[employer] SENIOR SPECIALIST.[employer] REPRESENTATIVE Work Phone: [facility] 01-29-2013 influenza, seasonal, injectable, preservative free Rehana Garcia LE[employer] SENIOR SPECIALIST.[employer] REPRESENTATIVE Work Phone: [facility] 03-09-2007 tetanus toxoid, reduced diphtheria toxoid, and acellular pertussis vaccine, adsorbed Riaz Sandra [employer] SENIOR SPECIALIST.[employer] REPRESENTATIVE Work Phone: [facility] Work Phone: Payers Date Payer Category Payer Medicare HUMANA MEDICARE HUMANA GOLD PLUS [id number] 2019-Present [phone] [place] [id number] [facility] [id number] 2019 Medicare HUMANA MEDICARE HUMANA GOLD PLUS [id number] 2019-Present [phone] [address] [address] [place] [address] O [id number] 2019 Private Health Insurance [id number] Social History Date Type Detail Facility Start: [facility]-06-2022 [facility] Work Phone: Start: 07-05-2021 End: 07-20-2022 Alcohol intake Current drinker of alcohol (finding) [facility] Start: 10-08-2012 History SDOH Alcohol Comment very rarely [facility] Start: 1950 Sex Assigned At Not on file [facility] Start: 06-25-2021 End: 01-06-2022 Exposure to SARS-CoV-2 (event) Not sure [facility] Work Phone: Start: 01-06-2022 Tobacco use and exposure Smokeless tobacco non-user [facility] Work Phone: Start: 07-20-2022 History SDOH Physica l Activity DPW 0 [facility] Start: 07-20-2022 History SDOH Stress 3 [facility] Start: 05-10-2022 End: 07-20-2022 History of Social function [facility] Start: 05-10-2022 End: 07-20-2022 Social connection and isolation panel [facility] In a typical week, h ow many times do you talk on the telephone with family, friends, or neighbors? Patient refused [facility] Are you now , , , , never or living with a partner? Refused [facility] Do you feel stress - tense, restless, nervous, or anxious, or unable to sleep at night because your mind is troubled all the time - these days [OSQ] To some extent [facility] (I/We) worried wheth er (my/our) food would run out before (I/we) got money to buy more. DK or Refused [facility] Start: 12-01-2022 End: 02-09-2023 Alcohol intake Ex-drinker (finding) [facility] Clinical Notes 08-14-2014 to 12-28-2022 Alen Arrooy MD - 12/28/2022 11:00 AM Verona Sorensen RN - 12/28/2022 10:36 AM Randa Larsen LPN - 12/01/2022 10:20 AM Berkley Malik PA-C - 12/01/2022 10:09 AM EDT Note Date & Type Note Facility 12-28-2022 Note HNO ID: [id number] Author: Verona Mesa, RN Service: ? Author Type: Registered Nurse Type: Nursing Progress Note Filed: 12/28/2022 10:53 AM Note Text: Abdomen soft non-distended. Will continue to monitor. Passing a moderate amount of air via rectum. [facility] 12-28-2022 History and physical note Images from the original note were not included. HISTORY AND PHYSICAL Adenike Slaughter 1950 REFERRING PHYSICIAN: Moon Ferris APRN.[employer] REPRESENTATIVE CHIEF COMPLAINT: Consult (Screening for colon cancer) HPI: The patient is a 72 year old female referred for endoscopy. Adenike notes history of colon polyps and is overdue for surveillance colonoscopy. Patient denies any change in bowel habits, weight changes, blood in stools, black tarry stools or abdominal pain. Denies family history of colon issues. The patient notes no upper GI complaints. Adenike has undergone prior endoscopy. Last colonoscopy 05/23/[address] Maier under conscious sedation, five year repeat recommended. Patient denies chest pain, shortness of breath or recent hospitalizations. Denies problems with sedation in the past. PAST MEDICAL HISTORY PAST MEDICAL HISTORY Diagnosis Date Acute gastritis without mention of hemorrhage Age-related osteoporosis without current pathological fracture 08/11/2022 Allergic rhinitis, cause unspecified Anemia, unspecified 11/21/2005 Benign neoplasm of colon Carpal tunnel syndrome 03/05/2006 Cervicalgia 1998 Clostridium difficile diarrhea 08/14/2014 Diarrhea Diarrhea Headache(784.0) 11/21/2005 Internal hemorrhoids without mention of complication Irritable bowel syndrome 11/21/2005 Lumbago 07/16/2006 narcotic contract signed,scanned in and in paper chart 07/28/09. Migraine without aura, without mention of intractable migraine without mention of status migrainosus Pain in joint, lower leg 03/05/2006 PAST SURGICAL HISTORY PAST SURGICAL HISTORY Procedure Laterality Date APPENDECTOMY ARTHROSCOPY KNEE DIAGNOSTIC W/WO SYNOVIAL BX SPX 04/16/1987 Arthroscopy, knee, Dr. Griggs COLONOSCOPY FLX DX W/COLLJ SPEC WHEN PFRMD 05/17/2003 Colonoscopy, Dr. Disla COLONOSCOPY FLX DX W/COLLJ SPEC WHEN PFRMD 05/23/2013 Colonoscopy COLSC FLX W/RMVL OF TUMOR POLYP LESION SNARE TQ 11/22/2007 EGD TRANSORAL BIOPSY SINGLE/MULTIPLE 05/10/2007 ESOPHAGOGASTRODUODENOSCOPY TRANSORAL DIAGNOSTIC 09/14/1994 EGD LAMINECTOMY W/O FFD 1/2 VERT SEG LUMBAR 04/16/1985 Laminectomy, lumbar L5,S1 disc/fusion LEFT HEART CATH,PERCUTANEOUS 07/15/1996 Cardiac cath, L heart- patient reports as normal LEFT HEART CATH,PERCUTANEOUS 08/15/2011 Cardiac cath, L heart, WNL LIG/TRNSXJ FLP TUBE ABDL/VAG APPR UNI/BI Tubal ligation NEUROPLASTY &/TRANSPOS MEDIAN NRV CARPAL TUNNE 1999 and 2005 Carpal tunnel decomp, right OPEN REPAIR OF ROTATOR CUFF ACUTE 04/16/1984 Rotator cuff repair PAST SURGICAL HISTORY OF 03/02/2009 Left plantar fasciotomy PAST SURGICAL HISTORY OF Left 08/08/2021 Lens Implant PAST SURGICAL HISTORY OF Right 08/25/2021 Right lens implant TONSILLECTOMY PRIMARY/SECONDARY <AGE 14 1960s Tonsillectomy VAGINAL HYSTERECTOMY W/REMOVAL TUBES/OV 04/16/2012 CURRENT MEDICATIONS Current Outpatient Medications Medication Sig gabapentin (NEURONTIN) 100 mg capsule Take 1 capsule by mouth daily at bedtime for 60 days. celecoxib (CELEBREX) 200 mg capsule Take 1 capsule by mouth twice daily. alendronate (FOSAMAX) 70 mg tablet Take 1 tablet by mouth one time a week. Take with a full glass of water, on an empty stomach; do NOT lie down for 30minutes. cyclobenzaprine (FLEXERIL) 10 mg tablet Take 10 mg by mouth three times daily as needed. acetaminophen 650 mg CR tablet Take 650 mg by mouth every 8 hours as needed. No current facility-administered medications for this visit. ALLERGIES: Meloxicam and Septra [Other] PERSONAL HISTORY: SOCIAL HISTORY Social History Tobacco Use Smoking status: Never Smokeless tobacco: Never Vaping Use Vaping Use: Never used Substance Use Topics Alcohol use: Not Currently Drug use: No FAMILY HISTORY: FAMILY HISTORY FAMILY HISTORY Problem Relation Age of Onset Hypertension Mother Diabetes Mother Heart Mother Congestive Heart Failure Cataract Mother COPD Father of COPD Coronary Artery Disease Father Heart Father Cataract Sister Cataract Brother Cataract Brother Asthma Brother 2 brothers Cancer Brother metastatic, etiol? REVIEW OF SYMPTOMS: The review of systems data was entered by the nurse and reviewed by me There are no exam notes on file for this visit. PHYSICAL EXAMINATION: General: The patient is 72 year old female, well nourished, well hydrated in no acute distress. The patient is oriented to time, place, and person. VITALS: Blood pressure 138/86, pulse 89, temperature 36.7 C (98.1 F), height 157.5 cm (5' 2 ), weight 60.4 kg (133 lb 3.2 oz), last menstrual period 07/03/2005, SpO2 98 %. Body mass index is 24.36 kg/m . HEENT: Normal cephalic, ataumatic, pupils are equally round, sclera are anicteric, mucous membranes are moist, oropharynx is clear. Neck has no masses, asymmetry or lymphadenopathy. Respiratory: Clear to auscultation and percussion. Normal respiratory excursion and pattern. Cardiac: Examination is regular rate and rhythm. Normal S1/S2 Abdominal exam: Soft, nontender, with no palpable masses. No hepatosplenomegaly. No palpable hernias. Extremities: no clubbing, cyanosis or edema. No adenopathy. LABORATORY VALUES: As Noted RADIOLOGIC STUDIES: As Noted Assessment IMPRESSION: encounter for surveillance colonoscopy due to personal history of colon polyps PLAN: I have reviewed my findings with the surgeon. Will plan for lower endoscopy. We discussed the risks and benefits of the planned endoscopy. I have informed the patient that complications can occur including failure to complete the endoscopy and perforation. The patient had the opportunity to ask questions concerning the planned endoscopy. My staff has also explained the procedure to the patient in understandable terms and has given the patient printed material concerning the procedure. The patient freely consents to surgery. I plan to use Golytely bowel preparation-patient states has prep already Diagnoses: (Z86.010) History of colonic polyps (primary encounter diagnosis) (Z12.11) Screen for colon cancer Consultation requested by Moon Ferris CNP for an opinion regarding surveillance colonoscopy. My final recommendations will be communicated back to the requesting physician by way of shared Medical record or letter to requesting physician via US mail. Berkley Chen PA-C UPDATED HISTORY AND PHYSICAL EXAMINATION SERVICE DATE: 12/28/2022 SERVICE TIME: 10:16 AM PHYSICAL EXAM MUST BE COMPLETED ON ADMISSION The History and Physical (completed in the past 30 days) has been reviewed and the patient has been examined. The contents accurately reflect the patient's condition with the following additions or revisions since the H&P was completed. Examination indicates no changes. This H&P can be found in the attached. SIGNATURE: Alen Arroyo III, MD PATIENT NAME: Adenike Slaughter DATE: December 28, 2022 TIME: 10:16 AM documented in this encounter [facility] 12-28-2022 Nurse Note Abdomen soft non-distended. Will continue to monitor. Passing a moderate amount of air via rectum. documented in this encounter [facility] 12-01-2022 Note HNO ID: [id number] Author: Berkley Chen PA-C Service: ? Author Type: Physician Outpatient Admitting Clerk Type: Progress Notes Filed: 12/01/2022 10:47 AM Note Text: HISTORY AND PHYSICAL Adenike Slaughter 1950 REFERRING PHYSICIAN: Moon Ferris APRN.CNP CHIEF COMPLAINT: Consult (Screening for colon cancer) HPI: The patient is a 72 year old female referred for endoscopy. Adenike notes history of colon polyps and is overdue for surveillance colonoscopy. Patient denies any change in bowel habits, weight changes, blood in stools, black tarry stools or abdominal pain. Denies family history of colon issues. The patient notes no upper GI complaints. Adenike has undergone prior endoscopy. Last colonoscopy 05/23/[address] Maier under conscious sedation, five year repeat recommended. Patient denies chest pain, shortness of breath or recent hospitalizations. Denies problems with sedation in the past. PAST MEDICAL HISTORY Diagnosis Date Acute gastritis without mention of hemorrhage Age-related osteoporosis without current pathological fracture 08/11/2022 Allergic rhinitis, cause unspecified Anemia, unspecified 11/21/2005 Benign neoplasm of colon Carpal tunnel syndrome 03/05/2006 Cervicalgia 1998 Clostridium difficile diarrhea 08/14/2014 Diarrhea Diarrhea Headache(784.0) 11/21/2005 Internal hemorrhoids without mention of complication Irritable bowel syndrome 11/21/2005 Lumbago 07/16/2006 narcotic contract signed,scanned in and in paper chart 07/28/09. Migraine without aura, without mention of intractable migraine without mention of status migrainosus Pain in joint, lower leg 03/05/2006 PAST SURGICAL HISTORY Procedure Laterality Date APPENDECTOMY ARTHROSCOPY KNEE DIAGNOSTIC W/WO SYNOVIAL BX SPX 04/16/1987 Arthroscopy, knee, Dr. Griggs COLONOSCOPY FLX DX W/COLLJ SPEC WHEN PFRMD 05/17/2003 Colonoscopy, Dr. Disla COLONOSCOPY FLX DX W/COLLJ SPEC WHEN PFRMD 05/23/2013 Colonoscopy COLSC FLX W/RMVL OF TUMOR POLYP LESION SNARE TQ 11/22/2007 EGD TRANSORAL BIOPSY SINGLE/MULTIPLE 05/10/2007 ESOPHAGOGASTRODUODENOSCOPY TRANSORAL DIAGNOSTIC 09/14/1994 EGD LAMINECTOMY W/O FFD 1/2 VERT SEG LUMBAR 04/16/1985 Laminectomy, lumbar L5,S1 disc/fusion LEFT HEART CATH,PERCUTANEOUS 07/15/1996 Cardiac cath, L heart- patient reports as normal LEFT HEART CATH,PERCUTANEOUS 08/15/2011 Cardiac cath, L heart, WNL LIG/TRNSXJ FLP TUBE ABDL/VAG APPR UNI/BI Tubal ligation NEUROPLASTY AND/TRANSPOS MEDIAN NRV CARPAL TUNNE 1999 and 2005 Carpal tunnel decomp, right OPEN REPAIR OF ROTATOR CUFF ACUTE 04/16/1984 Rotator cuff repair PAST SURGICAL HISTORY OF 03/02/2009 Left plantar fasciotomy PAST SURGICAL HISTORY OF Left 08/08/2021 Lens Implant PAST SURGICAL HISTORY OF Right 08/25/2021 Right lens implant TONSILLECTOMY PRIMARY/SECONDARY Tonsillectomy VAGINAL HYSTERECTOMY W/REMOVAL TUBES/OV 04/16/2012 Current Outpatient Medications Medication Sig gabapentin (NEURONTIN) 100 mg capsule Take 1 capsule by mouth daily at bedtime for 60 days. celecoxib (CELEBREX) 200 mg capsule Take 1 capsule by mouth twice daily. alendronate (FOSAMAX) 70 mg tablet Take 1 tablet by mouth one time a week. Take with a full glass of water, on an empty stomach; do NOT lie down for 30minutes. cyclobenzaprine (FLEXERIL) 10 mg tablet Take 10 mg by mouth three times daily as needed. acetaminophen 650 mg CR tablet Take 650 mg by mouth every 8 hours as needed. No current facility-administered medications for this visit. ALLERGIES: Meloxicam and Septra [Other] PERSONAL HISTORY: Social History Tobacco Use Smoking status: Never Smokeless tobacco: Never Vaping Use Vaping Use: Never used Substance Use Topics Alcohol use: Not Currently Drug use: No FAMILY HISTORY: FAMILY HISTORY Problem Relation Age of Onset Hypertension Mother Diabetes Mother Heart Mother Congestive Heart Failure Cataract Mother COPD Father of COPD Coronary Artery Disease Father Heart Father Cataract Sister Cataract Brother Cataract Brother Asthma Brother 2 brothers Cancer Brother metastatic, etiol? REVIEW OF SYMPTOMS: The review of systems data was entered by the nurse and reviewed by me There are no exam notes on file for this visit. PHYSICAL EXAMINATION: General: The patient is 72 year old female, well nourished, well hydrated in no acute distress. The patient is oriented to time, place, and person. VITALS: Blood pressure 138/86, pulse 89, temperature 36.7 ?C (98.1 ?F), height 157.5 cm (5' 2 ), weight 60.4 kg (133 lb 3.2 oz), last menstrual period 07/03/2005, SpO2 98 %. Body mass index is 24.36 kg/m?. HEENT: Normal cephalic, ataumatic, pupils are equally round, sclera are anicteric, mucous membranes are moist, oropharynx is clear. Neck has no masses, asymmetry or lymphadenopathy. Respiratory: Clear to auscultation and percussion. Normal respiratory excursion and pattern. Cardiac: Examination is re (more content not included)... [facility] 12-01-2022 Nurse Note REVIEW OF SYSTEMS: General: The patient denies fatigue, denies weight loss, denies weight gain, denies feeling hot, and denies feelings of cold. Eyes: The patient denies glaucoma, denies eye injury/surgery, wears glasses or contacts. Ear/Nose/Throat: The patient denies allergies, denies hayfever, denies ear infections, and denies bloody noses. Cardiovascular: The patient denies chest pain, denies heart disease, denies high blood pressure,denies cardiac stent, denies prior heart attack, denies irregular heart beat, denies high cholesterol, denies poor circulation, denies heart failure, other cardiac issues, denies claudication, denies cold feet, denies peripheral arterial stent. Respiratory: The patient denies tuberculosis, denies pneumonia, denies frequent cough, denies pulmonary embolism, denies shortness of breath, and denies coughing up blood. Gastrointestinal: The patient denies difficulty swallowing, denies acid reflux, denies ulcers, denies vomiting, denies jaundice/hepatitis, denies gallbladder problems, denies black or tarry stools, NOTES hemorrhoids, denies bleeding from rectum, denies diverticulitis, NOTES constipation, NOTES diarrhea, denies loss of stool control, and denies hernias. Kidney/Bladder: The patient denies kidney stones, denies urine infections, and denies bloody urine. Skin: The patient denies a history of skin cancer, denies bleeding/changing moles, and denies a history of skin rash. Neurologic: The patient denies a history of epilepsy/convulsions, denies headaches, denies head/spinal injuries, and denies stroke/TIA. Psychiatric: The patient denies psychiatric medications, denies depression, and denies voices, denies substance abuse. Endocrine: The patient denies thyroid disorders, denies diabetes, and denies hormonal problems. Hematologic: The patient denies a history of bruising, denies bleeding, and denies anemia, denies blood clots. Infections: The patient denies a history of measles and mumps, denies rheumatic fever, and denies sexually transmitted diseases. Musculoskeletal: The patient NOTES back pain/injury, NOTES back problems, denies sciatica, NOTES knee/foot trouble, NOTES arthritis, or denies gout. When was patient's last Mammogram screening? 2022 Last Colonoscopy: 06/2022 Randa Otero LPN documented in this encounter [facility] 12-01-2022 History of Present illness Narrative HISTORY AND PHYSICAL Adenike Slaughter 1950 REFERRING PHYSICIAN: Moon Ferris APRN.CNP CHIEF COMPLAINT: Consult (Screening for colon cancer) HPI: The patient is a 72 year old female referred for endoscopy. Adenike notes history of colon polyps and is overdue for surveillance colonoscopy. Patient denies any change in bowel habits, weight changes, blood in stools, black tarry stools or abdominal pain. Denies family history of colon issues. The patient notes no upper GI complaints. Adenike has undergone prior endoscopy. Last colonoscopy 05/23/[address] Maier under conscious sedation, five year repeat recommended. Patient denies chest pain, shortness of breath or recent hospitalizations. Denies problems with sedation in the past. PAST MEDICAL HISTORY Diagnosis Date Acute gastritis without mention of hemorrhage Age-related osteoporosis without current pathological fracture 08/11/2022 Allergic rhinitis, cause unspecified Anemia, unspecified 11/21/2005 Benign neoplasm of colon Carpal tunnel syndrome 03/05/2006 Cervicalgia 1997 Clostridium difficile diarrhea 08/14/2014 Diarrhea Diarrhea Headache(784.0) 11/21/2005 Internal hemorrhoids without mention of complication Irritable bowel syndrome 11/21/2005 Lumbago 07/16/2006 narcotic contract signed,scanned in and in paper chart 07/28/09. Migraine without aura, without mention of intractable migraine without mention of status migrainosus Pain in joint, lower leg 03/05/2006 PAST SURGICAL HISTORY Procedure Laterality Date APPENDECTOMY ARTHROSCOPY KNEE DIAGNOSTIC W/WO SYNOVIAL BX SPX 04/16/1987 Arthroscopy, knee, Dr. Griggs COLONOSCOPY FLX DX W/COLLJ SPEC WHEN PFRMD 05/17/2003 Colonoscopy, Dr. Disla COLONOSCOPY FLX DX W/COLLJ SPEC WHEN PFRMD 05/23/2013 Colonoscopy COLSC FLX W/RMVL OF TUMOR POLYP LESION SNARE TQ 11/22/2007 EGD TRANSORAL BIOPSY SINGLE/MULTIPLE 05/10/2007 ESOPHAGOGASTRODUODENOSCOPY TRANSORAL DIAGNOSTIC 09/14/1994 EGD LAMINECTOMY W/O FFD 1/2 VERT SEG LUMBAR 04/16/1985 Laminectomy, lumbar L5,S1 disc/fusion LEFT HEART CATH,PERCUTANEOUS 07/15/1996 Cardiac cath, L heart- patient reports as normal LEFT HEART CATH,PERCUTANEOUS 08/15/2011 Cardiac cath, L heart, WNL LIG/TRNSXJ FLP TUBE ABDL/VAG APPR UNI/BI Tubal ligation NEUROPLASTY &/TRANSPOS MEDIAN NRV CARPAL TUNNE 1999 and 2005 Carpal tunnel decomp, right OPEN REPAIR OF ROTATOR CUFF ACUTE 04/16/1984 Rotator cuff repair PAST SURGICAL HISTORY OF 03/02/2009 Left plantar fasciotomy PAST SURGICAL HISTORY OF Left 08/08/2021 Lens Implant PAST SURGICAL HISTORY OF Right 08/25/2021 Right lens implant TONSILLECTOMY PRIMARY/SECONDARY <AGE 14 1960s Tonsillectomy VAGINAL HYSTERECTOMY W/REMOVAL TUBES/OV 04/16/2012 Current Outpatient Medications Medication Sig gabapentin (NEURONTIN) 100 mg capsule Take 1 capsule by mouth daily at bedtime for 60 days. celecoxib (CELEBREX) 200 mg capsule Take 1 capsule by mouth twice daily. alendronate (FOSAMAX) 70 mg tablet Take 1 tablet by mouth one time a week. Take with a full glass of water, on an empty stomach; do NOT lie down for 30minutes. cyclobenzaprine (FLEXERIL) 10 mg tablet Take 10 mg by mouth three times daily as needed. acetaminophen 650 mg CR tablet Take 650 mg by mouth every 8 hours as needed. No current facility-administered medications for this visit. ALLERGIES: Meloxicam and Septra [Other] PERSONAL HISTORY: Social History Tobacco Use Smoking status: Never Smokeless tobacco: Never Vaping Use Vaping Use: Never used Substance Use Topics Alcohol use: Not Currently Drug use: No FAMILY HISTORY: FAMILY HISTORY Problem Relation Age of Onset Hypertension Mother Diabetes Mother Heart Mother Congestive Heart Failure Cataract Mother COPD Father of COPD Coronary Artery Disease Father Heart Father Cataract Sister Cataract Brother Cataract Brother Asthma Brother 2 brothers Cancer Brother metastatic, etiol? REVIEW OF SYMPTOMS: The review of systems data was entered by the nurse and reviewed by me There are no exam notes on file for this visit. PHYSICAL EXAMINATION: General: The patient is 72 year old female, well nourished, well hydrated in no acute distress. The patient is oriented to time, place, and person. VITALS: Blood pressure 138/86, pulse 89, temperature 36.7 C (98.1 F), height 157.5 cm (5' 2 ), weight 60.4 kg (133 lb 3.2 oz), last menstrual period 07/03/2005, SpO2 98 %. Body mass index is 24.36 kg/m . HEENT: Normal cephalic, ataumatic, pupils are equally round, sclera are anicteric, mucous membranes are moist, oropharynx is clear. Neck has no masses, asymmetry or lymphadenopathy. Respiratory: Clear to auscultation and percussion. Normal respiratory excursion and pattern. Cardiac: Examination is regular rate and rhythm. Normal S1/S2 Abdominal exam: Soft, nontender, with no palpable masses. No hepatosplenomegaly. No palpable hernias. Extremities: no clubbing, cyanosis or edema. No adenopathy. LABORATORY VALUES: As Noted RADIOLOGIC STUDIES: As Noted Assessment IMPRESSION: encounter for surveillance colonoscopy due to personal history of colon polyps PLAN: I have reviewed my findings with the surgeon. Will plan for lower endoscopy. We discussed the risks and benefits of the planned endoscopy. I have informed the patient that complications can occur including failure to complete the endoscopy and perforation. The patient had the opportunity to ask questions concerning the planned endoscopy. My staff has also explained the procedure to the patient in understandable terms and has given the patient printed material concerning the procedure. The patient freely consents to surgery. I plan to use Golytely bowel preparation-patient states has prep already Diagnoses: (Z86.010) History of colonic polyps (primary encounter diagnosis) (Z12.11) Screen for colon cancer Consultation requested by Moon Ferris CNP for an opinion regarding surveillance colonoscopy. My final recommendations will be communicated back to the requesting physician by way of shared Medical record or letter to requesting physician via US mail. Berkley Chen PA-C documented in this encounter [facility] 11-20-2022 Miscellaneous Notes Detailed message left on patient identified voicemail. She will need seen by general surgery first Moon Ferris APRN.CNP Can we re-file order? No longer showing under active request Patient is requesting a colonoscopy order, please advise. States possible hemorrhoid. Thank you documented in this encounter [facility] 11-15-2022 Miscellaneous Notes JASON: 09/05/2022 Last refill: 09/05/2022 QTY: 30 Refills: 1 documented in this encounter [facility] 11-10-2022 Note HNO ID: [id number] Author: Carlos Alberto Galvin Service: ? Author Type: ? Type: Progress Notes Filed: 11/10/2022 10:28 AM Note Text: 3rd failed attempt to schedule colonoscopy. Left VM, sent MyChart, and letter. 11/10 [facility] 11-10-2022 Miscellaneous Notes Fyi to pcp. 3rd failed attempt to schedule colonoscopy. Left VM, sent MyChart, and letter. Cancelled request, please place a new order when patient is ready to schedule. Thank you! 11/10 documented in this encounter [facility] 10-19-2022 Note HNO ID: [id number] Author: Carlos Alberto Galvin Service: ? Author Type: ? Type: Progress Notes Filed: 10/19/2022 1:14 PM Note Text: Patient was driving, will call back today to schedule colonoscopy. If not, call in a week. 10/19 [facility] 2022 Note HNO ID: [id number] Author: Anneliese Plascencia Service: ? Author Type: ? Type: Progress Notes Filed: 2022 2:55 PM Note Text: POPULATION HEALTH NAVIGATION OUTREACH Action/FYI 1st call, pt will call back Patient Identified by Name and : YES, via phone Outreach Outcome/Action Spoke to patient / parent / legal guardian: Patient will return the call or ask for return call Did you use a PCP flex slot to schedule this appointment? No Reason for Outreach Care Gap or Scheduling/Wellness visits Payer: Payor: [employer] MEDICARE / Plan: [employer] GOLD PLUS / Product Type: HMO / Care Gap Reviewed:: Specialty Scheduling Reminder: Reminder note to check Health Maintenance for items below Health Maintenance items due: SHINGRIX VACCINE(1 of 2) Never done PNEUMOCOCCAL: 67+(1 - PCV) Never done COLORECTAL CANCER SCREENING due on 05/23/2018 ADVANCE DIRECTIVE DISCUSSION Never done Navigation Signature: Anneliese Plascencia 2022 2:55 PM [facility] 2022 Note Patient Outreach (AC CC) ADENIKE SLAUGHTER I ([id number]) 1950 F Date Time Provider Department 09/06/22 PCP (HISTORICAL) [facility] During your visit today, we recorded the following information about you: Anneliese Plascencia 2022 2:55 PM Signed POPULATION HEALTH NAVIGATION OUTREACH Action/ 1st call, pt will call back Patient Identified by Name and : YES, via phone Outreach Outcome/Action Spoke to patient / parent / legal guardian: Patient will return the call or ask for return call Did you use a PCP flex slot to schedule this appointment? No Reason for Outreach Care Gap or Scheduling/Wellness visits Payer: Payor: [employer] MEDICARE / Plan: [employer] GOLD PLUS / Product Type: HMO / Care Gap Reviewed:: Specialty Scheduling Reminder: Reminder note to check Health Maintenance for items below Health Maintenance items due: SHINGRIX VACCINE(1 of 2) Never done PNEUMOCOCCAL: 67+(1 - PCV) Never done COLORECTAL CANCER SCREENING due on 05/23/2018 ADVANCE DIRECTIVE DISCUSSION Never done Navigation Signature: Anneliese Plascencia 2022 2:55 PM Allergies As of Date: 2022 Noted Allergy Reaction MELOXICAM 10/21/2012 14 - Other: See Comments Comments: muscle tremors/spasms Septra [Other] 02/06/1998 Comments: Reaction: Rash Date Reviewed: 09/05/2022 Reviewed by: Moon Ferris APRN.[employer] REPRESENTATIVE - Fully Assessed Prescriptions as of 2022 - celecoxib (CELEBREX) 200 mg capsule Take 1 capsule by mouth twice daily. - gabapentin (NEURONTIN) 100 mg capsule Take 1 capsule by mouth daily at bedtime for 60 days. - alendronate (FOSAMAX) 70 mg tablet Take 1 tablet by mouth one time a week. Take with a full glass of water, on an empty stomach; do NOT lie down for 30minutes. - cyclobenzaprine (FLEXERIL) 10 mg tablet Take 10 mg by mouth three times daily as needed. - acetaminophen 650 mg CR tablet Take 650 mg by mouth every 8 hours as needed. Meds Comments as of 06/15/2010: Problem List As Of Date 2022 Noted Resolved Irritable Bowel Syndrome [K58.9] 11/21/2005 HEADACHE [R51] 11/21/2005 01/02/2006 Mgrn Wo Aura Wo Intrc Mgr [G43.009] 01/02/2006 10/21/2013 Carpal tunnel syndrome [G56.00] 03/05/2006 09/05/2011 Pain in Joint, Lower Leg [M25.569] 03/05/2006 Lumbago [M54.50] 07/16/2006 Diarrhea [R19.7] 05/10/2007 11/26/2018 Acute Gastritis without Mention of Hemorrhage [*05/10/2007 09/05/2011 Benign Neoplasm of Colon [D12.6] 11/22/2007 Internal Hemorrhoids without Mention of Complic*11/22/2007 09/05/2011 Pain in Soft Tissues of Limb [M79.609] 07/09/2008 09/05/2011 Calcaneal spur [M77.30] 07/09/2008 09/05/2011 Hyperlipidemia, mixed [E78.2] 09/29/2011 Vitamin D deficiency [E55.9] 09/18/2012 Stress incontinence, female [N39.3] 10/21/2013 Clostridium difficile diarrhea [A04.72] 08/14/2014 11/26/2018 Insomnia [G47.00] 05/04/2015 Anxiety and depression [F41.9, F32.A] 05/04/2015 Nonspecific abnormal toxicology (inconsistent) *05/05/2015 Age-related osteoporosis without current pathol*08/11/2022 Encounter Status:Closed by ANNELIESE PLASCENCIA on 09/06/22 [facility] 09-05-2022 Note HNO ID: [id number] Author: Moon Ferris APRN.CNP Service: ? Author Type: Nurse Practitioner Type: Progress Notes Filed: 09/05/2022 2:22 PM Note Text: CC: Patient presents with: Right Hip Pain HPI Adenike Slaughter is a 71 year old female who presents today for above. Patient was seen 07/13 for 4 week history of right hip and knee pain. X-rays showed arthritis, moderate effusion in the right knee. D-dimer was elevated, venous ultrasound negative. Treated with Medrol dose pack, ibuprofen and hydrocodone. Patient reports only mild improvement with medications. Pain is worse at night, having trouble sleeping. Described as sharp, stabbing and burning. Associated with numbness/tingling right leg and swelling of the right knee. Denies fever, chills, weakness, bowel/bladder dysfunction, urinary retention, saddle anesthesia. REVIEW OF SYSTEMS See HPI PAST MEDICAL HISTORY Diagnosis Date Acute gastritis without mention of hemorrhage Age-related osteoporosis without current pathological fracture 08/11/2022 Allergic rhinitis, cause unspecified Anemia, unspecified 11/21/2005 Benign neoplasm of colon Carpal tunnel syndrome 03/05/2006 Cervicalgia 1998 Clostridium difficile diarrhea 08/14/2014 Diarrhea Diarrhea Headache(784.0) 11/21/2005 Internal hemorrhoids without mention of complication Irritable bowel syndrome 11/21/2005 Lumbago 07/16/2006 narcotic contract signed,scanned in and in paper chart 07/28/09. Migraine without aura, without mention of intractable migraine without mention of status migrainosus Pain in joint, lower leg 03/05/2006 PAST SURGICAL HISTORY Procedure Laterality Date APPENDECTOMY ARTHROSCOPY KNEE DIAGNOSTIC W/WO SYNOVIAL BX SPX 04/16/1987 Arthroscopy, knee, Dr. Griggs COLONOSCOPY FLX DX W/COLLJ SPEC WHEN PFRMD 05/17/2003 Colonoscopy, Dr. Disla COLONOSCOPY FLX DX W/COLLJ SPEC WHEN PFRMD 05/23/2013 Colonoscopy COLSC FLX W/RMVL OF TUMOR POLYP LESION SNARE TQ 11/22/2007 EGD TRANSORAL BIOPSY SINGLE/MULTIPLE 05/10/2007 ESOPHAGOGASTRODUODENOSCOPY TRANSORAL DIAGNOSTIC 09/14/1994 EGD LAMINECTOMY W/O FFD 1/2 VERT SEG LUMBAR 04/16/1985 Laminectomy, lumbar L5,S1 disc/fusion LEFT HEART CATH,PERCUTANEOUS 07/15/1996 Cardiac cath, L heart- patient reports as normal LEFT HEART CATH,PERCUTANEOUS 08/15/2011 Cardiac cath, L heart, WNL LIG/TRNSXJ FLP TUBE ABDL/VAG APPR UNI/BI Tubal ligation NEUROPLASTY AND/TRANSPOS MEDIAN NRV CARPAL TUNNE 1999 and 2005 Carpal tunnel decomp, right OPEN REPAIR OF ROTATOR CUFF ACUTE 04/16/1984 Rotator cuff repair PAST SURGICAL HISTORY OF 03/02/2009 Left plantar fasciotomy PAST SURGICAL HISTORY OF Left 08/08/2021 Lens Implant PAST SURGICAL HISTORY OF Right 08/25/2021 Right lens implant TONSILLECTOMY PRIMARY/SECONDARY Tonsillectomy VAGINAL HYSTERECTOMY W/REMOVAL TUBES/OV 04/16/2012 ALLERGIES Meloxicam and Septra [Other] MEDICATIONS alendronate (FOSAMAX) 70 mg tablet Take 1 tablet by mouth one time a week. Take with a full glass of water, on an empty stomach; do NOT lie down for 30minutes. ibuprofen (MOTRIN) 600 mg tablet Take 600 mg by mouth every 8 hours as needed. acetaminophen 650 mg CR tablet Take 650 mg by mouth every 8 hours as needed. cyclobenzaprine (FLEXERIL) 10 mg tablet Take 10 mg by mouth three times daily as needed. FAMILY HISTORY Problem Relation Age of Onset Hypertension Mother Diabetes Mother Heart Mother Congestive Heart Failure Cataract Mother COPD Father of COPD Coronary Artery Disease Father Heart Father Cataract Sister Cataract Brother Cataract Brother Asthma Brother 2 brothers Cancer Brother metastatic, etiol? Social History Tobacco Use Smoking status: Never Smokeless tobacco: Never Vaping Use Vaping Use: Never used Substance Use Topics Alcohol use: Yes Comment: very rarely Drug use: No PHYSICAL EXAM BP 152/80 Pulse 80 Resp 16 Ht 152.4 cm (5') Wt 60.3 kg (133 lb) LMP 07/03/2005 BMI 25.97 kg/m? General Appearance: in no acute distress, alert, appears uncomfortable Back: No pain to palpation, Full and painless ROM including flexion, extension, lateral side bending and rotation, Reflexes 2+ and symmetric. Muscle strength 5/5 bilaterally. Negative SLR. Musculoskeletal: right hip-no deformities. no tenderness with palpation. Full and painless ROM. Right knee-pain with flexion. No laxity. Ext: no edema in LE bilaterally, good distal pulses, capillary refill < 2 seconds DATA REVIEWED: Most recent x-rays and venous ultrasound ASSESSMENT/PLAN: 1. Acute pain of right knee - ICD9: 719.46, ICD10: M25.561 (primary diagnosis) Etiology unclear. Differentials include osteoarthritis, referred pain from lumbar spine - CONSULT TO ORTHOPAEDICS - start Gabapentin and Celebrex, see orders - she will notify me in one week if no improvement with medications 2. Right hip pain - ICD9: 719.45, ICD10: M25.551 As above - CELECOXIB (more content not included)... [facility] 08-24-2022 Note HNO ID: [id number] Author: Carlos Alberto Galvin Service: ? Author Type: ? Type: Progress Notes Filed: 08/24/2022 11:56 AM Note Text: Patient requested being called back in 2 weeks for scheduling colonoscopy due to her needing some appointments first. JN 08/24 [facility] 08-01-2022 Miscellaneous Notes August 02, 2022 PID: [id number] Adenike Slaughter [address] [place] [address] Dear Moshe Slaughter, We are pleased to inform you that the results of your recent breast imaging exam on 08/01/2022 are normal. Early detection of cancer is very important. We also understand recommendations regarding breast cancer screening are controversial. Please discuss with your primary care provider which strategy is best for you and whether a mammogram is right for you. Your imaging studies and report will be kept on file at [facility] as part of your permanent medical record and are available for your continuing care. Thank you for allowing us to help in meeting your health care needs. Sincerely, Dr. Child Interpreting Radiologist [facility] (Normal over 40) documented in this encounter [facility] 08-01-2022 Note HNO ID: [id number] Author: CAROLYN Jones) Service: ? Author Type: Technologist Type: Progress Notes Filed: 08/01/2022 10:36 AM Note Text: Radiology Service Progress Note PATIENT NAME: Adenike Slaughter DATE OF SERVICE: August 01, 2022 TIME: 10:25 AM PATIENT IDENTITY VERIFICATION COMPLETED USING TWO (2) IDENTIFIERS: Name and Date of confirmed by patient verbally. FALL SCREENING: Has the patient had 2 falls in the last year or 1 fall with injury or currently using an Ambulatory Assistive Device (Walker, Cane, Wheelchair, Crutches, etc.)? No PATIENT GENDER DATA: Female. status: : No status: NO. PATIENT RELEVANT IMPLANT DATA REVIEWED: Not Applicable RADIOLOGY DEPARTMENT: Bone Density PERIPHERAL IV DATA: Not applicable SIGNED BY: RT Karen(R) August 01, 2022 10:25 AM [facility] 08-01-2022 Note HNO ID: [id number] Author: CAROLYN Castro) Service: ? Author Type: Technologist Type: Progress Notes Filed: 08/01/2022 9:25 AM Note Text: Radiology Service Progress Note PATIENT NAME: Adenike Slaughter DATE OF SERVICE: August 01, 2022 TIME: 9:25 AM PATIENT IDENTITY VERIFICATION COMPLETED USING TWO (2) IDENTIFIERS: Name and Date of confirmed by patient verbally. FALL SCREENING: Has the patient had 2 falls in the last year or 1 fall with injury or currently using an Ambulatory Assistive Device (Walker, Cane, Wheelchair, Crutches, etc.)? No PATIENT GENDER DATA: Female. status: : No status: NO. PATIENT RELEVANT IMPLANT DATA REVIEWED: Not Applicable RADIOLOGY DEPARTMENT: Mammography PERIPHERAL IV DATA: Not applicable SIGNED BY: RT Matthew(Cassandra) August 01, 2022 9:25 AM [facility] 08-01-2022 History of Present illness Narrative Radiology Service Progress Note PATIENT NAME: Adenike Slaughter DATE OF SERVICE: August 01, 2022 TIME: 9:25 AM PATIENT IDENTITY VERIFICATION COMPLETED USING TWO (2) IDENTIFIERS: Name and Date of confirmed by patient verbally. FALL SCREENING: Has the patient had 2 falls in the last year or 1 fall with injury or currently using an Ambulatory Assistive Device (Walker, Cane, Wheelchair, Crutches, etc.)? No PATIENT GENDER DATA: Female. status: : No status: NO. PATIENT RELEVANT IMPLANT DATA REVIEWED: Not Applicable RADIOLOGY DEPARTMENT: Mammography PERIPHERAL IV DATA: Not applicable SIGNED BY: RT Matthew(R) August 01, 2022 9:25 AM documented in this encounter [facility] 07-28-2022 Note HNO ID: [id number] Author: Marcella Strange Service: ? Author Type: ? Type: Progress Notes Filed: 07/28/2022 11:56 AM Note Text: Patient scheduled colonoscopy August 30, [address] Melvin Strange [facility] 07-20-2022 Note HNO ID: [id number] Author: Frederic Ambrosio MD Service: ? Author Type: Physician Type: Progress Notes Filed: 07/20/2022 11:39 AM Note Text: This note was created using Sendbloom. Subjective Adenike Slaughter is a 71 year old female. She was much better on the Medrol. Pain was resolving and she was ambulatory now. US was negative for DVT and x rays of the right hip and knee showed chronic degenerative joint disease. Review of Systems Constitutional: Negative. ACTIVE PROBLEM LIST Irritable Bowel Syndrome Pain in Joint, Lower Leg Lumbago Benign Neoplasm of Colon Hyperlipidemia, Mixed Vitamin D Deficiency Stress Incontinence, Female Insomnia Anxiety and Depression Nonspecific abnormal toxicology (inconsistent) Current Outpatient Medications Medication Sig ibuprofen (MOTRIN) 600 mg tablet Take 600 mg by mouth every 8 hours as needed. cyclobenzaprine (FLEXERIL) 10 mg tablet Take 10 mg by mouth three times daily as needed. HYDROcodone-acetaminophen (NORCO) 5-325 mg per tablet Take 1 tablet by mouth every 8 hours as needed for pain for up to 5 days. methylPREDNISolone (MEDROL, [place],) 4 mg Dose-Pack Follow dosing instructions, take with food. acetaminophen 650 mg CR tablet Take 650 mg by mouth every 8 hours as needed. No current facility-administered medications for this visit. Objective BP 134/78 (BP Site: Right Arm, BP Position: Sitting, BP Cuff Size: Large Adult) Pulse 80 Resp 16 Wt 61.2 kg (135 lb) LMP 07/03/2005 BMI 27.04 kg/m? Physical Exam Constitutional: General: She is not in acute distress. Cardiovascular: Pulses: Normal pulses. Musculoskeletal: Right hip: No deformity or tenderness. Normal range of motion. Right knee: Swelling present. No deformity or effusion. Normal range of motion. Tenderness present. No medial joint line tenderness. Right lower leg: No swelling. Neurological: General: No focal deficit present. Mental Status: She is alert. Gait: Gait normal. Assessment and Plan 1. Acute leg pain, right - ICD9: 729.5, ICD10: M79.604 Resolving. She declined orthopedic consult for now. Finish medications. Call for referral if symptoms recur. Frederic Ambrosio MD [facility] 07-20-2022 History of Present illness Narrative This note was created using Sendbloom. Subjective Adenike Slaughter is a 71 year old female. She was much better on the Medrol. Pain was resolving and she was ambulatory now. US was negative for DVT and x rays of the right hip and knee showed chronic degenerative joint disease. Review of Systems Constitutional: Negative. ACTIVE PROBLEM LIST Irritable Bowel Syndrome Pain in Joint, Lower Leg Lumbago Benign Neoplasm of Colon Hyperlipidemia, Mixed Vitamin D Deficiency Stress Incontinence, Female Insomnia Anxiety and Depression Nonspecific abnormal toxicology (inconsistent) Current Outpatient Medications Medication Sig ibuprofen (MOTRIN) 600 mg tablet Take 600 mg by mouth every 8 hours as needed. cyclobenzaprine (FLEXERIL) 10 mg tablet Take 10 mg by mouth three times daily as needed. HYDROcodone-acetaminophen (NORCO) 5-325 mg per tablet Take 1 tablet by mouth every 8 hours as needed for pain for up to 5 days. methylPREDNISolone (MEDROL, [place],) 4 mg Dose-Pack Follow dosing instructions, take with food. acetaminophen 650 mg CR tablet Take 650 mg by mouth every 8 hours as needed. No current facility-administered medications for this visit. Objective BP 134/78 (BP Site: Right Arm, BP Position: Sitting, BP Cuff Size: Large Adult) Pulse 80 Resp 16 Wt 61.2 kg (135 lb) LMP 07/03/2005 BMI 27.04 kg/m Physical Exam Constitutional: General: She is not in acute distress. Cardiovascular: Pulses: Normal pulses. Musculoskeletal: Right hip: No deformity or tenderness. Normal range of motion. Right knee: Swelling present. No deformity or effusion. Normal range of motion. Tenderness present. No medial joint line tenderness. Right lower leg: No swelling. Neurological: General: No focal deficit present. Mental Status: She is alert. Gait: Gait normal. Assessment and Plan 1. Acute leg pain, right - ICD9: 729.5, ICD10: M79.604 Resolving. She declined orthopedic consult for now. Finish medications. Call for referral if symptoms recur. Frederic Ambrosio MD documented in this encounter [facility] 07-17-2022 Miscellaneous Notes Pt called and is notified of providers results and instructions. Pt voices understanding. Berkley Brewer RN Addended by: FREDERIC AMBROSIO on: 07/17/2022 04:32 PM Modules accepted: Orders Negative for DVT. I can recommend steroid pack now for inflammation. MEDROL PACK recommended, ordered. Please inform the patient. Called [facility] and they can work pt in today at 230 . Order faxed to [phone]. Called pt and all reviewed. Called pt and all reviewed. She is available today for ultrasound. Reviewing if this at [facility] or [facility]. Labs okay except for elevated d-dimer. I cannot rule out DVT. Xrays showed no acute disease. See in the ER 07/15/22 and prescribed ibuprofen and flexeril. Vicodin prescribed short term for now. ASSESSMENT/PLAN: 1. Acute leg pain, right - ICD9: 729.5, ICD10: M79.604 - US LEG VEIN DVT UNL VAS LAB - HYDROCODONE 5 MG-ACETAMINOPHEN 325 MG TABLET Frederic Ambrosio MD Patient requesting medication for pain relief of the knee, patient stated that the shot given to her in office only helped a few hours. Patient stated that she is not able to put weight on knee and has been taking ibuprofen and is not helping with pain. documented in this encounter [facility] 07-16-2022 Miscellaneous Notes Labs okay except for elevated d-dimer. I cannot rule out DVT. Xrays no acute disease. Plan: I agree with ER if worse. If not done, schedule venous duplex right leg STAT Sunday, tomorrow. Pt stated she is having a lot pain in legs 10/10 from hip down her leg. Outcome :Pt stated understanding to recommendation. She stated she will go to [facility]. Reason for Disposition Knee pain is main symptom [1] Can't move swollen joint at all AND [2] no fever Answer Assessment - Initial Assessment Questions 1. LOCATION and RADIATION: Right leg pain with the knee being the main. 2. QUALITY: sharp and dull 3. SEVERITY: severe 4. ONSET: night Sunday morning per pt. 5. RECURRENT: yes but nothing like this 6. SETTING: No 7. AGGRAVATING FACTORS: no 8. ASSOCIATED SYMPTOMS: swelling severe no redness 9. OTHER SYMPTOMS:whole leg pain. 10. : n/a Pt stated she took Tylenol 650 mg 1 hour and half ago and it is not improvement. Protocols used: Leg Gnzd-BOCET-TG, Knee Vszg-WHNSN-YQ documented in this encounter [facility] 07-13-2022 Note HNO ID: [id number] Author: RT Yahaira(R) Service: ? Author Type: Compound Finisher Type: Progress Notes Filed: 07/13/2022 1:24 PM Note Text: Radiology Service Progress Note PATIENT NAME: Adenike Slaughter DATE OF SERVICE: July 13, 2022 TIME: 12:55 PM PATIENT IDENTITY VERIFICATION COMPLETED USING TWO (2) IDENTIFIERS: Name and Date of confirmed by patient verbally. FALL SCREENING: Has the patient had 2 falls in the last year or 1 fall with injury or currently using an Ambulatory Assistive Device (Walker, Cane, Wheelchair, Crutches, etc.)? No PATIENT GENDER DATA: Female. status: : No status: NO. PATIENT RELEVANT IMPLANT DATA REVIEWED: Yes RADIOLOGY DEPARTMENT: General X-ray: Exam(s) Completed: Pelvis X-Ray: Pelvis with Hip Right Lower Extremity X-Ray(s): Knee, AP / Lat / Tunne / Merchant Right PERIPHERAL IV DATA: Not applicable SIGNED BY: RT Yahaira(R) July 13, 2022 12:55 PM [facility] 07-13-2022 Note HNO ID: [id number] Author: Frederic Ambrosio MD Service: ? Author Type: Physician Type: Progress Notes Filed: 07/13/2022 12:59 PM Note Text: This note was created using [email or web address]. Subjective Patient presents with: Right Hip Pain Adenike Slaughter is a 71 year old female. She started with right hip and right knee pain 4 weeks ago, initially the right hip was painful. Pain has worsened with time, was worse with weight bearing and ambulation. She has been taking Aleve 2 tablets twice a day, and Tylenol with little relief, and she adds ibuprofen at times. She had no fall, no injury, no strenuous activity. I last saw her 2019. Review of Systems Constitutional: Negative for fever and unexpected weight change. Respiratory: Negative. Gastrointestinal: Negative for abdominal pain, constipation, diarrhea, nausea and vomiting. Genitourinary: Negative for difficulty urinating and dysuria. Musculoskeletal: Positive for gait problem. Negative for back pain and joint swelling. Neurological: Negative for weakness and numbness. ACTIVE PROBLEM LIST Irritable Bowel Syndrome Pain in Joint, Lower Leg Lumbago Benign Neoplasm of Colon Hyperlipidemia, Mixed Vitamin D Deficiency Stress Incontinence, Female Insomnia Anxiety and Depression Nonspecific abnormal toxicology (inconsistent) Current Outpatient Medications Medication Sig acetaminophen 650 mg CR tablet Take 650 mg by mouth every 8 hours as needed. No current facility-administered medications for this visit. Objective BP 137/81 (BP Site: Left Arm, BP Position: Sitting, BP Cuff Size: Large Adult) Pulse 81 Resp 16 Wt 61.7 kg (136 lb) LMP 07/03/2005 BMI 27.24 kg/m? Physical Exam Constitutional: General: She is not in acute distress. Abdominal: Tenderness: There is no abdominal tenderness. Musculoskeletal: Lumbar back: No tenderness. Negative right straight leg raise test and negative left straight leg raise test. Right hip: Tenderness present. No crepitus. Normal range of motion. Normal strength. Left hip: Normal. Right upper leg: Tenderness present. No swelling, edema, deformity or bony tenderness. Left upper leg: Normal. Right knee: Swelling present. No deformity, effusion, erythema, ecchymosis or crepitus. Decreased range of motion. Tenderness present over the medial joint line. Left knee: Normal. Right lower leg: Normal. No tenderness. No edema. Right ankle: Normal. Normal pulse. Right foot: Normal capillary refill. Normal pulse. Comments: Very tender right medial and popliteal knee. No mass, no cords. Neurological: General: No focal deficit present. Mental Status: She is alert. Sensory: No sensory deficit. Motor: No weakness. Gait: Gait abnormal. Comments: Antalgic gait, avoiding weight on right leg. No assistive device used. Assessment and Plan 1. Acute leg pain, right - ICD9: 729.5, ICD10: M79.604 (primary diagnosis) Right knee and right hip. Etiology not clear. - XR HIP GENERAL 3V PELV/AP/LAT RIGHT - XR KNEE GENERAL 4V AP BOTH/PA BOTH/LAT/MERC RIGHT - CBC - SED RATE WESTERGREN - BASIC METABOLIC PNL - ALKALINE PHOSPHATASE - D-DIMER - KETOROLAC 60 MG/2 ML INTRAMUSCULAR SOLUTION - Further recommendations will depend on test results. 2. Special screening for malignant neoplasms, colon - ICD9: V76.51, ICD10: Z12.11 Patient indicated understanding and willingness to follow recommendations. - COLONOSCOPY SCREENING - PEG 3350 240 GRAM-ELECTROLYTES 22.72 GRAM-6.72 G-5.84 G POWDR FOR SOLN 3. Encounter for screening mammogram for malignant neoplasm of breast - ICD9: V76.12, ICD10: Z12.31 - BEULAH SCREENING 4. Screening for osteoporosis - ICD9: V82.81, ICD10: Z13.820 - DXA-AXIAL SKELETON 5. Abnormal gait - ICD9: 781.2, ICD10: R26.9 Due to pain. Close follow up. Frederic Ambrosio MD [facility] 07-13-2022 Note HNO ID: [id number] Author: Lori Rausch LPN Service: ? Author Type: ? Type: Progress Notes Filed: 07/13/2022 12:59 PM Note Text: TR OPEN ACCESS QUESTIONNAIRE 1. Are you currently having any new or unusual stomach/gastrointestinal issues at this time such as constipation, diarrhea, abdominal pain, rectal bleeding etc?No 2. Do you have any difficulty swallowing? No 3. Do you have any implanted devices such as a defibrillator, pacemaker, cardiac stents or deep brain stimulator? No 4. Do you take any Blood thinners such as Coumadin, Plavix, Xarelto, Eliquis, Brilinta or any other blood thinner? No 5. Do you have any new or past cardiac (heart) or pulmonary (lung) issues? No 6. Do you currently use any oxygen? No 7. Have you been hospitalized in the past 6 weeks? No 8. Have you had difficulty with anesthesia previously re: Difficult intubation? No Other difficulty or allergic reaction to anesthesia other than post op N/V? No 9. Are you on dialysis? No 10. Do you have any bleeding disorders such as hemophilia or Factor 5? No 11. Are you an Insulin Dependent Diabetic? No IF ANY OF THE TOP ELEVEN QUESTIONS ARE ANSWERED YES PLEASE SCHEDULE THE PATIENT FOR A CONSULT. advised 12. Is the patient's BMI 40 or greater? No:There is no height or weight on file to calculate BMI.. 13. Do you take any narcotics or anti-Anxiety medications? No 14. Do you use any illegal or recreational drugs including marijuana? No 15. Any alcohol use: No. 16. Have you been diagnosed with chronic liver disease such as hepatitis or cirrhosis? No 17. Do you have a seizure disorder? No 18. Do you have ulcerative colitis or Crohn's disease? No 19. Are you or could you be ? No 20. Any other important health information we should be made aware of prior to your colonoscopy? No To be completed by LIP: Did patient have MAC anesthesia with a previous endoscopy procedure? No Patient appropriate for Open Access Colonoscopy: Yes: appropriate for Open Access Procedure Checklist: Prior to closing the encounter: Complete questionnaire: Yes Confirm Prep order has been Ordered/Pended: Yes. Patient's procedure could be delayed if not given the script for the prep. Please ensure the prep is escripted to pharmacy or printed. Instructions for the prep will print upon filing or pending this smartset. Please send all open access questionnaires to [facility] Pool #[id number] [facility] 07-13-2022 Instructions Frederic Ambrosio MD - 07/13/2022 12:28 PM EDT Health Information For Patients and the Community How to Prepare for Your Colonoscopy Using Golytely, Nulytely, Trilyte or Colyte Preparations IMPORTANT - Please Read These Instructions at Least 2 Weeks Before Your Colonoscopy [place] Instructions: ?Your bowel must be empty so that your doctor can clearly view your colon. Follow all of the instructions in this handout EXACTLY as they are written. If you do NOT follow the directions for when to start drinking the bowel preparation (see next page), your colonoscopy WILL be cancelled. ?Do NOT eat any solid food the ENTIRE day before your colonoscopy. ?Buy your bowel preparation at least 5 days before your colonoscopy. ?Do NOT mix the solution until the day before your colonoscopy. Designated Terrazzo Mechanic on the Day of Your Exam A responsible family member or friend MUST come with you to your colonoscopy and REMAIN in the endoscopy area until you are discharged! You are NOT ALLOWED to drive, take a taxi or bus, or leave the Endoscopy Center ALONE. If you do not have a responsible forklift driver (family member or friend) with you to take you home, your exam cannot be done with sedation and will be cancelled. Medications Some of the medicines you take may need to be stopped or adjusted before your colonoscopy. You MUST call the doctor who ordered any of the following medicines at least 2 weeks before your colonoscopy. ?Blood thinners -- such as Coumadin (warfarin), Plavix (clopidogrel), Ticlid (ticlopidine hydrochloride), Agrylin (anagrelide), Xarelto (Rivaroxaban), Pradaxa (Dabigatran), Eliquis (Apixaban), and Effient (Prasugrel). ?Insulin or diabetes pills. Please call the doctor that monitors your glucose levels. Your insulin dosage may need to be adjusted due to the diet restrictions required with this bowel preparation. (Please bring your diabetes medicines with you on the day of your procedure.) If you take aspirin, take it and ALL other medications prescribed by your doctor. On the day of your colonoscopy, take your medications with a sip of water. Revised 05/2016 1 Five (5) Days Before Your Colonoscopy ?Do NOT take medicines that stop diarrhea -- such as Imodium , Kaopectate , or Pepto Bismol . ?Do NOT take fiber supplements -- such as Metamucil , Citrucel , or Perdiem . ?Do NOT take products that contain iron -- such as multi-vitamins -- (the label lists what is in the products). ?Do NOT take vitamin E. Buy the prescription bowel preparation solution at your local pharmacy or drugstore pharmacy. Three (3) Days Before Your Colonoscopy Do NOT eat high-fiber foods -- such as popcorn, beans, seeds (flax, sunflower, quinoa), multigrain bread, nuts, salad/vegetables, or fresh and dried fruit. One (1) Day Before Your Colonoscopy Only drink clear liquids the ENTIRE DAY before your colonoscopy. Do NOT eat any solid foods. Drink at least 8 ounces of clear liquids every hour after waking up. The clear liquids you can drink include: ?water, apple, or white grape juice; broth; coffee or tea (without milk or creamer); clear carbonated beverages such as lexie james or lemon-emmonak soda; Gatorade or other sports drinks (not red); Woody-Aid or other flavored drinks (not red). You may eat plain jello or other gelatins (not red) or popsicles (not red). Do NOT drink alcohol on the day before or the day of the procedure. 2 Revised 05/2016 When to Mix and Drink Your Bowel Prep Follow the instructions on the label. After mixing, place the solution in the refrigerator for a couple of hours before drinking. You may add the flavor packet that came with the bowel preparation. DO NOT add ice, sugar or any flavorings to the solution. Evening Before Your Colonoscopy ?Start drinking the bowel preparation at 6 PM the evening before your colonoscopy. Drink an 8-oz glass of bowel preparation every 10 minutes. You must finish drinking the solution by 9 PM the night before your scheduled procedure. ?You may continue to drink clear liquids only until midnight. Do NOT eat or drink ANYTHING after midnight the night before your procedure or your procedure may be cancelled. This is for your safety and will reduce the risk of having any food or liquid in your stomach move into your lungs (aspiration) during a procedure. If you take aspirin, take it and ALL other prescribed medicines with a sip of water on the day of your colonoscopy. Contact Information: If you are unable to keep your appointment or have any questions about the instructions, please call the facility where the procedure is being performed. Call between the hours of 8:00 AM and 5:00 PM. If you are calling after 5:00 PM, please call Nurse coordinator of rehabilitation services at [phone]. [facility] [address] [place] [id number] Index # [id number] Revised 05/2016 3 Colonoscopy Procedure Overview Please Read Prior to the Procedure What is a Colonoscopy A colonoscopy is an outpatient procedure in which the inside of the large intestine (colon and rectum) is examined. A colonoscopy is commonly used to evaluate gastrointestinal symptoms, such as rectal and intestinal bleeding, abdominal pain, or changes in bowel habits. Colonoscopies are also performed in individuals without symptoms to check for colorectal polyps or cancer. A screening colonoscopy is recommended for anyone 50 years of age and older, and for anyone with parents, siblings or children with a history of colorectal cancer or polyps. What Happens Before a Colonoscopy To have a successful colonoscopy, your bowel must be empty so that your physician can clearly view the colon. To do this, it is very important to read and follow all of the instructions given to you at least 2 weeks BEFORE your exam. If your bowel is not empty, your colonoscopy will not be successful and may have to be repeated. If you feel nauseated or vomit while taking the bowel preparation, wait 30 minutes before drinking more fluid and start with small sips of solution. Some activity (such as walking) or a few soda crackers may help decrease the nausea you are feeling. If the nausea persists, please contact nurse certifed refrigeration operator at [phone]. You may experience skin irritation around the anus due to the passage of liquid stools. To prevent and treat skin irritation, you should: ?Apply Vaseline or Desitin ointment to the skin around the anus before drinking the bowel preparation medications. These products can be purchased at any [employer]. ?Wipe the skin after each bowel movement with disposable wet wipes instead of toilet paper. These are found in the toilet paper area of the store. ?Sit in a bathtub filled with warm water for 10 to 15 minutes after you finish passing a stool; after soaking, blot the skin dry with a soft cloth, apply Vaseline or Desitin ointment to the anal area, and place a cotton ball just outside your anus to absorb leaking fluid. What Happens During a Colonoscopy During a colonoscopy, an experienced physician uses a colonoscope (a long, flexible instrument about 1/2 inch in diameter) to view the lining of the colon. The colonoscope is inserted into the rectum and advanced through the large intestine. If necessary during a colonoscopy, small amounts of tissue can be removed for analysis (a biopsy) and polyps can be identified and entirely removed. In many cases, a colonoscopy allows accurate diagnosis and treatment of colorectal problems without the need for a major operation. Revised 05/2016 5 ?You are asked to wear a hospital gown and an IV will be started. ?You are given a pain reliever and a sedative intravenously (in your vein). You will feel relaxed and somewhat drowsy. ?You will lie on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 Diarrhea Diarrhea Headache(784.0) 11/21/2005 Internal hemorrhoids without mention of complication Irritable bowel syndrome 11/21/2005 Lumbago 07/16/2006 narcotic contract signed,scanned in and in paper chart 07/28/09. Migraine without aura, without mention of intractable migraine without mention of status migrainosus Pain in joint, lower leg 03/05/2006 PAST SURGICAL HISTORY Procedure Laterality Date APPENDECTOMY ARTHROSCOPY KNEE DIAGNOSTIC W/WO SYNOVIAL BX SPX 1987 Arthroscopy, knee, Dr. Griggs COLONOSCOPY FLX DX W/COLLJ SPEC WHEN PFRMD 05/2003 Colonoscopy, Dr. Disla COLONOSCOPY FLX DX W/COLLJ SPEC WHEN PFRMD 05/23/13 Colonoscopy COLSC FLX W/RMVL OF TUMOR POLYP LESION SNARE TQ 11/22/07 EGD TRANSORAL BIOPSY SINGLE/MULTIPLE 05/10/07 ESOPHAGOGASTRODUODENOSCOPY TRANSORAL DIAGNOSTIC 09/1994 EGD LAMINECTOMY W/O FFD 04/17 VERT SEG LUMBAR 1985 Laminectomy, lumbar L5,S1 disc/fusion LEFT HEART CATH,PERCUTANEOUS 07/1996 Cardiac cath, L heart- patient reports as normal LEFT HEART CATH,PERCUTANEOUS August 2011 Cardiac cath, L heart, WNL LIG/TRNSXJ FLP TUBE ABDL/VAG APPR UNI/BI Tubal ligation NEUROPLASTY &/TRANSPOS MEDIAN NRV CARPAL TUNNE 1999 and 2005 Carpal tunnel decomp, right OPEN REPAIR OF ROTATOR CUFF ACUTE 1985 Rotator cuff repair PAST SURGICAL HISTORY OF 03/02/2009 Left plantar fasciotomy TONSILLECTOMY PRIMARY/SECONDARY <AGE 14 1960s Tonsillectomy VAGINAL HYSTERECTOMY W/REMOVAL TUBES/OV 2012 ALLERGIES Meloxicam and Septra [Other] MEDICATIONS acetaminophen (TYLENOL ARTHRITIS PAIN) 650 mg CR tablet Take 650 mg by mouth every 8 hours as needed. FAMILY HISTORY Problem Relation Age of Onset Hypertension Mother Diabetes Mother Heart Mother Congestive Heart Failure Cataract Mother COPD Father of COPD Coronary Artery Disease Father Heart Father Cataract Sister Cataract Brother Cataract Brother Asthma Brother 2 brothers Cancer Brother metastatic, etiol? Social History Tobacco Use Smoking status: Never Smokeless tobacco: Never Vaping Use Vaping Use: Never used Substance Use Topics Alcohol use: Yes Comment: very rarely Drug use: No ASSESSMENT/PLAN: 1. Pain - ICD9: 780.96, ICD10: R52 - XR HAND GENERAL 3V PA/LAT/OBL LEFT * * * * Physician Interpretation * * * * EXAMINATION: XR HAND 3V PA/LAT/OBL LT HISTORY: Pain Left hand pain and lacerations after hand was slammed in car door very hard. Lacerations on back of hand. VIEWS: PA, oblique and lateral. COMPARISON: No relevant comparison. FINDINGS: Soft tissue laceration dorsal to the metacarpals. No radiopaque foreign body evident. No dislocation or acute fracture. Triscaphe joint arthrosis and minimal spurring at left thumb basal joint. No erosions. IMPRESSION IMPRESSION: No acute bony abnormality. Soft tissue laceration dorsally. Respiratory Therapy Director: CLYDE Transcribe Date/Time: Mar 31 2022 11:33A Dictated by : Andrew BUSBY MD Patient's skin tear was cleansed with normal saline skin was approximated back to edges. Steri-Strips placed nonstick dressing placed over wound patient educated about proper supportive care at home. Patient will follow up if anything seems to be getting worse not better. Rehana Garcia APRN.[facility] documented in this encounter [facility] [place] 02-28-2022 Note HNO ID: [id number] Author: Max Burroughs Service: ? Author Type: ? Type: Progress Notes Filed: 02/28/2022 1:08 PM Note Text: POPULATION HEALTH NAVIGATION OUTREACH Action/[facility] Lulu lizarraga Patient due for the following: Colorectal Cancer Screening Advance Directive discussion Mammogram - ordered on 10/12/2021 Left voicemail for patient to return call uSharet message sent Pt identified by name and : NO Outreach Outcome/Action Unable to reach patient: Left message Qumulohart message sent Did you use a PCP flex slot to schedule this appointment? N/A Reason for Outreach Care Gap or Scheduling/Wellness visits Payer: Payor: [facility] MEDICARE / Plan: [employer] PLUS / Product Type: HMO / Care Gap Reviewed:: Breast Cancer screening Colorectal Cancer Screening Reminder: Reminder note to check Health Maintenance for items below Health Maintenance items due: SHINGRIX VACCINE(1 of 2) Never done MAMMOGRAM due on 02/06/2015 DTAP,TDAP,TD(2 - Td or Tdap) due on 03/09/2017 BONE DENSITY due on 2017 PNEUMOCOCCAL: 65+(1 - PCV) Never done COLORECTAL CANCER SCREENING due on 05/23/2018 COVID-19 VACCINE(3 - Booster for Pfizer series) due on 12/24/2020 ADVANCE DIRECTIVE DISCUSSION Never done Message Sent to Practice: No Navigation Signature: Max Burroughs February 28, 2022 1:05 PM [facility] 02-28-2022 Note Patient Outreach (JOY TNAV) ADENIKE SLAUGHTER I ([id number]) 1950 F Date Time Provider Department 02/28/22 MAX BURROUGHS During your visit today, we recorded the following information about you: Max Burroughs 02/28/2022 1:08 PM Signed POPULATION HEALTH NAVIGATION OUTREACH Action/VIGNESH lizarraga Patient due for the following: Colorectal Cancer Screening Advance Directive discussion Mammogram - ordered on 10/12/2021 Left voicemail for patient to return call IActive message sent Pt identified by name and : NO Outreach Outcome/Action Unable to reach patient: Left message Qumulohart message sent Did you use a PCP flex slot to schedule this appointment? N/A Reason for Outreach Care Gap or Scheduling/Wellness visits Payer: Payor: [employer] MEDICARE / Plan: [employer] PLUS / Product Type: HMO / Care Gap Reviewed:: Breast Cancer screening Colorectal Cancer Screening Reminder: Reminder note to check Health Maintenance for items below Health Maintenance items due: SHINGRIX VACCINE(1 of 2) Never done MAMMOGRAM due on 02/06/2015 DTAP,TDAP,TD(2 - Td or Tdap) due on 03/09/2017 BONE DENSITY due on 2017 PNEUMOCOCCAL: 65+(1 - PCV) Never done COLORECTAL CANCER SCREENING due on 05/23/2018 COVID-19 VACCINE(3 - Booster for Pfizer series) due on 12/24/2020 ADVANCE DIRECTIVE DISCUSSION Never done Message Sent to Practice: No Navigation Signature: Max Александр Miller February 28, 2022 1:05 PM Allergies As of Date: 02/28/2022 Noted Allergy Reaction MELOXICAM 10/21/2012 14 - Other: See Comments Comments: muscle tremors/spasms Septra [Other] 02/06/1998 Comments: Reaction: Rash Date Reviewed: 01/06/2022 Reviewed by: Moon Ferris APRN.[employer]PRESENTATIVE - Fully Assessed Reason for Visit: Population Health Navigation Outreach [3910] Cmt: [employer] Medicare Prescriptions as of 02/28/2022 - acetaminophen (TYLENOL ARTHRITIS PAIN) 650 mg CR tablet Take 650 mg by mouth every 8 hours as needed. Meds Comments as of 06/15/2010: Problem List As Of Date 02/28/2022 Noted Resolved Irritable Bowel Syndrome [K58.9] 11/21/2005 HEADACHE [R51] 11/21/2005 01/02/2006 Mgrn Wo Aura Wo Intrc Mgr [G43.009] 01/02/2006 10/21/2013 Carpal tunnel syndrome [G56.00] 03/05/2006 09/05/2011 Pain in Joint, Lower Leg [M25.569] 03/05/2006 Lumbago [M54.50] 07/16/2006 Diarrhea [R19.7] 05/10/2007 11/26/2018 Acute Gastritis without Mention of Hemorrhage [*05/10/2007 09/05/2011 Benign Neoplasm of Colon [D12.6] 11/22/2007 Internal Hemorrhoids without Mention of Complic*11/22/2007 09/05/2011 Pain in Soft Tissues of Limb [M79.609] 07/09/2008 09/05/2011 Calcaneal spur [M77.30] 07/09/2008 09/05/2011 Hyperlipidemia, mixed [E78.2] 09/29/2011 Vitamin D deficiency [E55.9] 09/18/2012 Stress incontinence, female [N39.3] 10/21/2013 Clostridium difficile diarrhea [A04.72] 08/14/2014 11/26/2018 Insomnia [G47.00] 05/04/2015 Anxiety and depression [F41.9, F32.A] 05/04/2015 Nonspecific abnormal toxicology (inconsistent) *05/05/2015 Encounter Status:Closed by MAX BURROUGHS on 02/28/22 [facility] 02-28-2022 History of Present illness Narrative POPULATION HEALTH NAVIGATION OUTREACH Action/[employer] Patient due for the following: Colorectal Cancer Screening Advance Directive discussion Mammogram - ordered on 10/12/2021 Left voicemail for patient to return call IActive message sent Pt identified by name and : NO Outreach Outcome/Action Unable to reach patient: Left message Qumulohart message sent Did you use a PCP flex slot to schedule this appointment? N/A Reason for Outreach Care Gap or Scheduling/Wellness visits Payer: Payor: [employer] MEDICARE / Plan: [employer] / Product Type: HMO / Care Gap Reviewed:: Breast Cancer screening Colorectal Cancer Screening Reminder: Reminder note to check Health Maintenance for items below Health Maintenance items due: SHINGRIX VACCINE(1 of 2) Never done MAMMOGRAM due on 02/06/2015 DTAP,TDAP,TD(2 - Td or Tdap) due on 03/09/2017 BONE DENSITY due on 2017 PNEUMOCOCCAL: 65+(1 - PCV) Never done COLORECTAL CANCER SCREENING due on 05/23/2018 COVID-19 VACCINE(3 - Booster for Pfizer series) due on 12/24/2020 ADVANCE DIRECTIVE DISCUSSION Never done Message Sent to Practice: No Navigation Signature: Max Burroughs February 28, 2022 1:05 PM documented in this encounter [facility] 01-06-2022 Note HNO ID: [id number] Author: Moon Ferris APRN.CNP Service: ? Author Type: Nurse Practitioner Type: Progress Notes Filed: 01/06/2022 10:38 AM Note Text: CC: Patient presents with: Pre-Op Exam: for eye surgery HPI Adenike Slaughter is a 71 year old female who presents today for pre-op evaluation. Surgical Procedure: macular hole right eye Date of Procedure: 01/11/22 Surgeon: Dr. Wyszynski Anesthesia: local/MAC PAT: NA 1. Diabetes: No 2. Hypertension requiring medication: No 3. Congestive Heart Failure: No 4. Current Smoker within 1 Year: No 5. History of COPD: No 6. History of DARYL: No 7. Dialysis: No REVIEW OF SYSTEMS General: no fevers, no chills, no night sweats, no change in energy, and no significant changes in weight HEENT: no frequent or significant headaches, no changes in hearing Neck: no lumps, no pain , and no swelling Respiratory: no cough, no wheezing, no shortness of breath Cardiovascular: no chest pain, no chest pressure, no palpitations, and no swelling GI: Negative for abdominal discomfort, blood in stools or black stools, change in bowel habit, heart burn, nausea, vomiting : Negative for dysuria, frequency, incontinence, and nocturia >1 Neurologic: No headache, weakness, numbness, tingling, neck stiffness, tremor, vertigo, dizziness, memory loss, syncope. PAST MEDICAL HISTORY Diagnosis Date Acute gastritis without mention of hemorrhage Allergic rhinitis, cause unspecified Anemia, unspecified 11/21/2005 Benign neoplasm of colon Carpal tunnel syndrome 03/05/2006 Cervicalgia 1998 Clostridium difficile diarrhea 08/14/2014 Diarrhea Diarrhea Headache(784.0) 11/21/2005 Internal hemorrhoids without mention of complication Irritable bowel syndrome 11/21/2005 Lumbago 07/16/2006 narcotic contract signed,scanned in and in paper chart 07/28/09. Migraine without aura, without mention of intractable migraine without mention of status migrainosus Pain in joint, lower leg 03/05/2006 PAST SURGICAL HISTORY Procedure Laterality Date APPENDECTOMY ARTHROSCOPY KNEE DIAGNOSTIC W/WO SYNOVIAL BX SPX 1987 Arthroscopy, knee, Dr. Griggs COLONOSCOPY FLX DX W/COLLJ SPEC WHEN PFRMD 05/2003 Colonoscopy, Dr. Disla COLONOSCOPY FLX DX W/COLLJ SPEC WHEN PFRMD 05/23/13 Colonoscopy COLSC FLX W/RMVL OF TUMOR POLYP LESION SNARE TQ 11/22/07 EGD TRANSORAL BIOPSY SINGLE/MULTIPLE 05/10/07 ESOPHAGOGASTRODUODENOSCOPY TRANSORAL DIAGNOSTIC 09/1994 EGD LAMINECTOMY W/O FFD 04/17 VERT SEG LUMBAR 1985 Laminectomy, lumbar L5,S1 disc/fusion LEFT HEART CATH,PERCUTANEOUS 07/1996 Cardiac cath, L heart- patient reports as normal LEFT HEART CATH,PERCUTANEOUS August 2011 Cardiac cath, L heart, WNL LIG/TRNSXJ FLP TUBE ABDL/VAG APPR UNI/BI Tubal ligation NEUROPLASTY AND/TRANSPOS MEDIAN NRV CARPAL TUNNE 1999 and 2005 Carpal tunnel decomp, right OPEN REPAIR OF ROTATOR CUFF ACUTE 1985 Rotator cuff repair PAST SURGICAL HISTORY OF 03/02/2009 Left plantar fasciotomy TONSILLECTOMY PRIMARY/SECONDARY Tonsillectomy VAGINAL HYSTERECTOMY W/REMOVAL TUBES/OV 2012 ALLERGIES Meloxicam and Septra [Other] MEDICATIONS acetaminophen (TYLENOL ARTHRITIS PAIN) 650 mg CR tablet Take 650 mg by mouth every 8 hours as needed. FAMILY HISTORY Problem Relation Age of Onset Hypertension Mother Diabetes Mother Heart Mother Congestive Heart Failure Cataract Mother COPD Father of COPD Coronary Artery Disease Father Heart Father Cataract Sister Cataract Brother Cataract Brother Asthma Brother 2 brothers Cancer Brother metastatic, etiol? Social History Tobacco Use Smoking status: Never Smokeless tobacco: Never Substance Use Topics Alcohol use: Yes Comment: very rarely Drug use: No PHYSICAL EXAM BP 110/68 Pulse 83 Temp (!) 35.9 ?C (96.7 ?F) (Tympanic) Resp 16 Ht 150.5 cm (4' 11.25 ) Wt 60.8 kg (134 lb) LMP 07/03/2005 SpO2 99% BMI 26.84 kg/m? General Appearance: well appearing, in no acute distress, alert Neck: Thyroid normal size and symmetric without palpable nodules, Neck supple, No adenopathy Oropharynx: lips normal without lesions, tongue midline and normal, soft palate, uvula, and tonsils normal Lungs: Lungs clear to auscultation. No wheezing, rhonchi, rales. Heart: RRR without murmur, gallop, or rubs. No ectopy Abdomen: soft, nondistended, nontender, no hepatosplenomegaly or masses Extremities: Ext: no edema in LE bilaterally, good distal pulses SHINGRIX VACCINE(1 of 2) Never done MAMMOGRAM due on 02/06/2015 DTAP,TDAP,TD(2 - Td or Tdap) due on 03/09/2017 BONE DENSITY due on 2017 PNEUMOCOCCAL: 65+(1 - PCV) Never done DIABETES SCREEN due on 11/03/2017 COLORECTAL CANCER SCREENING due on 05/23/2018 LIPID SCREEN due on 04/08/2020 COVID-19 VACCINE(3 - Booster for Pfizer series) due on 12/24/2020 ADVANCE DIRECTIVE DISCUSSION Never done INFLUENZA(1) due on 12/15/2021 HEPATITIS C SCREENING Completed Diagnoses/Plan (more content not included)... [facility] 01-06-2022 History of Present illness Narrative CC: Patient presents with: Pre-Op Exam: for eye surgery HPI Adenike Slaughter is a 71 year old female who presents today for pre-op evaluation. Surgical Procedure: macular hole right eye Date of Procedure: 01/11/22 Surgeon: Dr. Jang Anesthesia: local/MAC PAT: NA 1. Diabetes: No 2. Hypertension requiring medication: No 3. Congestive Heart Failure: No 4. Current Smoker within 1 Year: No 5. History of COPD: No 6. History of DARYL: No 7. Dialysis: No REVIEW OF SYSTEMS General: no fevers, no chills, no night sweats, no change in energy, and no significant changes in weight HEENT: no frequent or significant headaches, no changes in hearing Neck: no lumps, no pain , and no swelling Respiratory: no cough, no wheezing, no shortness of breath Cardiovascular: no chest pain, no chest pressure, no palpitations, and no swelling GI: Negative for abdominal discomfort, blood in stools or black stools, change in bowel habit, heart burn, nausea, vomiting : Negative for dysuria, frequency, incontinence, and nocturia >1 Neurologic: No headache, weakness, numbness, tingling, neck stiffness, tremor, vertigo, dizziness, memory loss, syncope. PAST MEDICAL HISTORY Diagnosis Date Acute gastritis without mention of hemorrhage Allergic rhinitis, cause unspecified Anemia, unspecified 11/21/2005 Benign neoplasm of colon Carpal tunnel syndrome 03/05/2006 Cervicalgia 1998 Clostridium difficile diarrhea 08/14/2014 Diarrhea Diarrhea Headache(784.0) 11/21/2005 Internal hemorrhoids without mention of complication Irritable bowel syndrome 11/21/2005 Lumbago 07/16/2006 narcotic contract signed,scanned in and in paper chart 07/28/09. Migraine without aura, without mention of intractable migraine without mention of status migrainosus Pain in joint, lower leg 03/05/2006 PAST SURGICAL HISTORY Procedure Laterality Date APPENDECTOMY ARTHROSCOPY KNEE DIAGNOSTIC W/WO SYNOVIAL BX SPX 1987 Arthroscopy, knee, Dr. Griggs COLONOSCOPY FLX DX W/COLLJ SPEC WHEN PFRMD 05/2003 Colonoscopy, Dr. Disla COLONOSCOPY FLX DX W/COLLJ SPEC WHEN PFRMD 05/23/13 Colonoscopy COLSC FLX W/RMVL OF TUMOR POLYP LESION SNARE TQ 11/22/07 EGD TRANSORAL BIOPSY SINGLE/MULTIPLE 05/10/07 ESOPHAGOGASTRODUODENOSCOPY TRANSORAL DIAGNOSTIC 09/1994 EGD LAMINECTOMY W/O FFD 04/17 VERT SEG LUMBAR 1986 Laminectomy, lumbar L5,S1 disc/fusion LEFT HEART CATH,PERCUTANEOUS 07/1996 Cardiac cath, L heart- patient reports as normal LEFT HEART CATH,PERCUTANEOUS August 2011 Cardiac cath, L heart, WNL LIG/TRNSXJ FLP TUBE ABDL/VAG APPR UNI/BI Tubal ligation NEUROPLASTY &/TRANSPOS MEDIAN NRV CARPAL TUNNE 1999 and 2005 Carpal tunnel decomp, right OPEN REPAIR OF ROTATOR CUFF ACUTE 1985 Rotator cuff repair PAST SURGICAL HISTORY OF 03/02/2009 Left plantar fasciotomy TONSILLECTOMY PRIMARY/SECONDARY <AGE 14 1960s Tonsillectomy VAGINAL HYSTERECTOMY W/REMOVAL TUBES/OV 2012 ALLERGIES Meloxicam and Septra [Other] MEDICATIONS acetaminophen (TYLENOL ARTHRITIS PAIN) 650 mg CR tablet Take 650 mg by mouth every 8 hours as needed. FAMILY HISTORY Problem Relation Age of Onset Hypertension Mother Diabetes Mother Heart Mother Congestive Heart Failure Cataract Mother COPD Father of COPD Coronary Artery Disease Father Heart Father Cataract Sister Cataract Brother Cataract Brother Asthma Brother 2 brothers Cancer Brother metastatic, etiol? Social History Tobacco Use Smoking status: Never Smokeless tobacco: Never Substance Use Topics Alcohol use: Yes Comment: very rarely Drug use: No PHYSICAL EXAM BP 110/68 Pulse 83 Temp (!) 35.9 C (96.7 F) (Tympanic) Resp 16 Ht 150.5 cm (4' 11.25 ) Wt 60.8 kg (134 lb) LMP 07/03/2005 SpO2 99% BMI 26.84 kg/m General Appearance: well appearing, in no acute distress, alert Neck: Thyroid normal size and symmetric without palpable nodules, Neck supple, No adenopathy Oropharynx: lips normal without lesions, tongue midline and normal, soft palate, uvula, and tonsils normal Lungs: Lungs clear to auscultation. No wheezing, rhonchi, rales. Heart: RRR without murmur, gallop, or rubs. No ectopy Abdomen: soft, nondistended, nontender, no hepatosplenomegaly or masses Extremities: Ext: no edema in LE bilaterally, good distal pulses SHINGRIX VACCINE(1 of 2) Never done MAMMOGRAM due on 02/06/2015 DTAP,TDAP,TD(2 - Td or Tdap) due on 03/09/2017 BONE DENSITY due on 2017 PNEUMOCOCCAL: 65+(1 - PCV) Never done DIABETES SCREEN due on 11/03/2017 COLORECTAL CANCER SCREENING due on 05/23/2018 LIPID SCREEN due on 04/08/2020 COVID-19 VACCINE(3 - Booster for Pfizer series) due on 12/24/2020 ADVANCE DIRECTIVE DISCUSSION Never done INFLUENZA(1) due on 12/15/2021 HEPATITIS C SCREENING Completed Diagnoses/Plan 1. Pre-operative evaluation Check Complete Metabolic Panel Complete Blood Count There is no known pertinent medical condition which may affect reggie-operative course KITCHEN risk: Patient is scheduled for a low-risk procedure. Risk of 0% calculated using the NSQIP surgical risk calculator The patient is medically stable for surgery 2. Hyperlipidemia, mixed - ICD9: 272.2, ICD10: E78.2 - to be determined upon return of lab results - LIPID PANEL BASIC 3. Irritable bowel syndrome, unspecified type - ICD9: 564.1, ICD10: K58.9 Stable 4. Encounter for immunization - ICD9: V03.89, ICD10: Z23 - INFLUENZA SEASONAL QUADRIVALENT HIGH DOSE AGE 65+ Reviewed overdue health maintenance list with patient. She is struggling taking care of two young grandchildren, one who is autistic. Does not feel that she has the time right now to catch up on overdue screenings. Stressed importance of screenings, especially colonoscopy since previous were abnormal and she is three years overdue. Patient agreeable to scheduling follow-up to review HM needs and get scheduled. Moon Ferris APRN.CNP documented in this encounter [facility] [place] 12-30-2021 Note HNO ID: [id number] Author: Huan Leon MA Service: ? Author Type: Assistant Professor In Family Studies Type: Progress Notes Filed: 12/30/2021 1:20 PM Note Text: POPULATION HEALTH NAVIGATION OUTREACH Action/FYI Patient returns call - declines scheduling HM due at this time as she is having eye surgery in a couple weeks. Will contact PCP office when she is ready to schedule. Pt identified by name and : YES, via phone Outreach Outcome/Action Spoke to patient or caregiver: Patient declined Did you use a PCP flex slot to schedule this appointment? N/A Navigation Signature: Huan Leon MA December 30, 2021 1:18 PM [facility] 12-26-2021 History of Present illness Narrative POPULATION HEALTH NAVIGATION OUTREACH Action/FYI left message on machine to return call Qumulohart message sent to patient Pt identified by name and : NO Outreach Outcome/Action Unable to reach patient: Left message Qumulohart message sent Did you use a PCP flex slot to schedule this appointment? N/A Reason for Outreach Care Gap or Scheduling/Wellness visits Payer: Payor: [employer] MEDICARE / Plan: [employer] / Product Type: HMO / Care Gap Reviewed:: Annual Wellness visit Breast Cancer screening Colorectal Cancer Screening Flu vaccine Reminder: Reminder note to check Health Maintenance for items below Health Maintenance items due: SHINGRIX VACCINE(1 of 2) Never done MAMMOGRAM due on 02/06/2015 DTAP,TDAP,TD(2 - Td or Tdap) due on 03/09/2017 BONE DENSITY due on 2017 PNEUMOCOCCAL: 65+(1 - PCV) Never done DIABETES SCREEN due on 11/03/2017 COLORECTAL CANCER SCREENING due on 05/23/2018 LIPID SCREEN due on 04/08/2020 COVID-19 VACCINE(3 - Booster for Pfizer series) due on 03/31/2021 ADVANCE DIRECTIVE DISCUSSION Never done INFLUENZA(1) due on 12/15/2021 Message Sent to Practice: No Navigation Signature: Huan Leon Population Health Navigator December 26, 2021 2:04 PM documented in this encounter [facility] [place] 08-22-2021 History of Present illness Narrative POPULATION HEALTH NAVIGATION OUTREACH Action/FYI [employer] caregaps Patient due for the following: Annual exam Mammogram - ordered on 11/05/2020 Colorectal Cancer Screening Advance Directives Unable to contact patient by phone, No answer Novogeniehart message sent Pt identified by name and : NO Outreach Outcome/Action Unable to reach patient: Phone number not valid / voicemail full Qumulohart message sent Reason for Outreach Care Gap or Scheduling/Wellness visits Payer: Payor: [employer] MEDICARE / Plan: [employer] / Product Type: HMO / Care Gap Reviewed:: Annual Wellness visit Breast Cancer screening Colorectal Cancer Screening Reminder: Reminder note to check Health Maintenance for items below Health Maintenance items due: SHINGRIX VACCINE(1 of 2) Never done MAMMOGRAM due on 02/06/2015 DTAP,TDAP,TD(2 - Td or Tdap) due on 03/09/2017 BONE DENSITY due on 2017 PNEUMOVAX AGE 65 AND OVER WITH 5YR LOOKBACK(1) Never done DIABETES SCREEN due on 11/03/2017 COLORECTAL CANCER SCREENING due on 05/23/2018 LIPID SCREEN due on 04/08/2020 COVID-19 VACCINE(3 - Booster for Pfizer series) due on 03/31/2021 ADVANCE DIRECTIVE DISCUSSION Never done Message Sent to Practice: No Navigation Signature: Max Burroughs August 22, 2021 10:23 AM documented in this encounter [facility] [place] 07-05-2021 Instructions Riaz Flores APRN.[facility] - 07/05/2021 10:56 AM EDT CARE ADVICE FOR COUGH: Drink warm fluids. Inhale warm mist. (Reason: both relax the airway and loosen up the phlegm) Suck on cough drops or hard candy to coat the irritated throat. OTC COUGH DROPS: Cough drops can help a lot, especially for mild coughs. They reduce coughing by soothing your irritated throat and removing that tickle sensation in the back of the throat. Cough drops also have the advantage of portability - you can carry them with you. HOME REMEDY - HARD CANDY: Hard candy works just as well as medicine-flavored OTC cough drops. People who have diabetes should use sugar-free candy. HOME REMEDY - HONEY: This old home remedy has been shown to help decrease coughing at night. The adult dosage is 2 teaspoons (10 ml) at bedtime. Honey should not be given to infants under one year of age. HUMIDIFIER: If the air is dry, use a humidifier in the bedroom. (Reason: dry air makes coughs worse) AVOID TOBACCO SMOKE: Smoking or being exposed to smoke makes coughs much worse. SORE THROAT For relief of sore throat: Sip warm chicken broth or apple juice Suck on hard candy or a throat lozenge (OTC) Gargle with warm salt water four times a day To make salt water, put 1/2 teaspoon of salt in 8 oz (240 ml) of warm water. Avoid cigarette smoke CALL BACK IF: Difficulty breathing occurs You develop any new or worsening symptoms You have any questions or concerns documented in this encounter [facility] [place] 07-05-2021 History of Present illness Narrative Subjective HPI Nontoxic-appearing female presents urgent care chief complaint cough nasal congestion. Duration of symptoms 11 days. Associated symptoms listed above. Patient was seen by me on Sunday. Diagnosed with sinobronchitis. Placed on doxycycline and Tessalon Perles. Tessalon Perles has helped. Patient states sinusitis are greatly improving. Cough is still bothersome. Has used some OTC medication as this helped some. Tessalon Perles are helping with sleeping and cough suppression at night.. States grandchildren have similar signs symptoms. Denies any significant pain currently. Denies any fever body aches or chills nausea vomiting abdominal pain productive cough chest pain pleuritic pain hemoptysis or change in bowel or bladder habits. Past medical history prescription medication use allergies reviewed. .Patient presents with: Cough: cougha nd congestion x 1 week PAST MEDICAL HISTORY Diagnosis Date Acute gastritis without mention of hemorrhage Allergic rhinitis, cause unspecified Anemia, unspecified 11/21/2005 Benign neoplasm of colon Carpal tunnel syndrome 03/05/2006 Cervicalgia 1998 Clostridium difficile diarrhea 08/14/2014 Diarrhea Diarrhea Headache(784.0) 11/21/2005 Internal hemorrhoids without mention of complication Irritable bowel syndrome 11/21/2005 Lumbago 07/16/2006 narcotic contract signed,scanned in and in paper chart 07/28/09. Migraine without aura, without mention of intractable migraine without mention of status migrainosus Pain in joint, lower leg 03/05/2006 PAST SURGICAL HISTORY Procedure Laterality Date APPENDECTOMY ARTHROSCOPY KNEE DIAGNOSTIC W/WO SYNOVIAL BX SPX 1987 Arthroscopy, knee, Dr. Griggs COLONOSCOPY FLX DX W/COLLJ SPEC WHEN PFRMD 05/2003 Colonoscopy, Dr. Disla COLONOSCOPY FLX DX W/COLLJ SPEC WHEN PFRMD 05/23/13 Colonoscopy COLSC FLX W/RMVL OF TUMOR POLYP LESION SNARE TQ 11/22/07 EGD TRANSORAL BIOPSY SINGLE/MULTIPLE 05/10/07 ESOPHAGOGASTRODUODENOSCOPY TRANSORAL DIAGNOSTIC 09/1994 EGD LAMINECTOMY W/O FFD 04/17 VERT SEG LUMBAR 1985 Laminectomy, lumbar L5,S1 disc/fusion LEFT HEART CATH,PERCUTANEOUS 07/1996 Cardiac cath, L heart- patient reports as normal LEFT HEART CATH,PERCUTANEOUS August 2011 Cardiac cath, L heart, WNL LIG/TRNSXJ FLP TUBE ABDL/VAG APPR UNI/BI Tubal ligation NEUROPLASTY &/TRANSPOS MEDIAN NRV CARPAL TUNNE 1999 and 2005 Carpal tunnel decomp, right OPEN REPAIR OF ROTATOR CUFF ACUTE 1985 Rotator cuff repair PAST SURGICAL HISTORY OF 03/02/2009 Left plantar fasciotomy TONSILLECTOMY PRIMARY/SECONDARY <AGE 14 1960s Tonsillectomy VAGINAL HYSTERECTOMY W/REMOVAL TUBES/OV 2012 ALLERGIES Meloxicam and Septra [Other] MEDICATIONS doxycycline (VIBRA-TABS) 100 mg tablet Take 1 tablet by mouth twice daily for 7 days. benzonatate (TESSALON PERLES) 100 mg capsule Take 1 capsule by mouth three times daily as needed for cough. benzonatate (TESSALON PERLES) 100 mg capsule Take 1 capsule by mouth three times daily as needed for cough. FAMILY HISTORY Problem Relation Age of Onset Hypertension Mother Diabetes Mother Heart Mother Congestive Heart Failure Cataract Mother COPD Father of COPD Coronary Artery Disease Father Heart Father Cataract Sister Cataract Brother Cataract Brother Asthma Brother 2 brothers Cancer Brother metastatic, etiol? Social History Tobacco Use Smoking status: Never Smoker Smokeless tobacco: Never Used Substance Use Topics Alcohol use: Yes Comment: very rarely Drug use: No BP 138/82 Pulse 75 Temp 36.8 C (98.3 F) (Tympanic) Resp 18 Wt 60.4 kg (133 lb 3.2 oz) LMP 07/03/2005 SpO2 98% BMI 26.01 kg/m Review of Systems Constitutional: Negative for chills, fever and malaise/fatigue. HENT: Positive for congestion and sinus pain. Negative for ear discharge, ear pain and sore throat. Eyes: Negative for blurred vision, pain, discharge and redness. Respiratory: Positive for cough. Negative for hemoptysis, sputum production, shortness of breath, wheezing and stridor. Cardiovascular: Negative for chest pain. Gastrointestinal: Negative for abdominal pain, diarrhea, nausea and vomiting. Musculoskeletal: Negative for myalgias. Skin: Negative for itching and rash. Neurological: Negative for dizziness and headaches. Objective Physical Exam Constitutional: General: She is not in acute distress. Appearance: She is not diaphoretic. HENT: Head: Normocephalic. Nose: Congestion present. Mouth/Throat: Mouth: Mucous membranes are moist. Pharynx: Oropharynx is clear. No oropharyngeal exudate or posterior oropharyngeal erythema. Eyes: Conjunctiva/sclera: Conjunctivae normal. Pupils: Pupils are equal, round, and reactive to light. Cardiovascular: Rate and Rhythm: Normal rate and regular rhythm. Heart sounds: Normal heart sounds. Pulmonary: Effort: Pulmonary effort is normal. No tachypnea, accessory muscle usage or respiratory distress. Breath sounds: Normal breath sounds. No stridor. No wheezing, rhonchi or rales. Chest: Chest wall: No tenderness. Abdominal: Palpations: Abdomen is soft. Tenderness: There is no abdominal tenderness. Musculoskeletal: Cervical back: Normal range of motion and neck supple. No rigidity or tenderness. Lymphadenopathy: Cervical: No cervical adenopathy. Skin: General: Skin is warm and dry. Neurological: Mental Status: She is alert and oriented to person, place, and time. ASSESSMENT/PLAN: 1. Cough - ICD9: 786.2, ICD10: R05.9 - XR CHEST 2V FRONTAL/LAT IMPRESSION: No acute radiographic abnormality. Chest x-ray negative. Sinus pressure is improving with doxycycline. We will continue antibiotics. Will use cough suppressants as needed. Suspicious of viral etiology due to cough. Low suspicion for PE. Wells score 0. No recent hospitalizations malignancy pleuritic pain hemoptysis or chest pain. Patient was educated on supportive therapies. Patient will follow up with primary care provider in 3 to 5 days for reevaluation. patient was instructed to immediately proceed to emergency room for any new, worsening, or symptoms lasting longer than anticipated. The patient's clinical presentation is otherwise unremarkable at this time. Based on exam and clinical finding, the patient is stable for discharge. Plan of care was discussed with patient. Patient verbalizes understanding and agrees to plan of care. This note was generated using [employer] software. It may contain errors in wording, punctuation, or spelling. Riaz Flores APRN.[facility]OA[facility] documented in this encounter [facility] [place] documented as of this encounter (statuses as of 07/05/2021) [facility] [place] History of Past illness Narrative* Problem Noted Date Resolved Date Clostridium difficile diarrhea 08/14/2014 0 11/26/2018 Pain in Soft Tissues of Limb 07/09/2008 Calcaneal spur 07/09/2008 09/05/2011 Internal Hemorrhoids without Mention of Complica tion 11/22/2007 09/05/2011 Diarrhea 05/10/2007 11/26/2018 Acute Gastritis without Mention of Hemorrhage 09/05/2011 Carpal tunnel syndrome 03/05/2006 2 Overview: Had surgery 1999 and 2005 and this is resolved Mgrn Wo Aura Wo Intrc Mgr 01/02/20062013 Headache(784.0) 11/21/2005 01/02/2006 documented as of this encounter (statuses as of 08/22/2021) [facility] [place] History of Past illness Narrative* Problem Noted Date Resolved Date Clostridium difficile diarrhea 08/14/2014 0 11/26/2018 Pain in Soft Tissues of Limb 07/09/2008 Calcaneal spur 07/09/2008 09/05/2011 Internal Hemorrhoids without Mention of Complica tion 11/22/2007 09/05/2011 Diarrhea 05/10/2007 11/26/2018 Acute Gastritis without Mention of Hemorrhage 09/05/2011 Carpal tunnel syndrome 03/05/2006 2 Overview: Had surgery 1999 and 2005 and this is resolved Mgrn Concha Kern Intrc Mgr 01/02/20062013 Headache(784.0) 11/21/2005 01/02/2006 documented as of this encounter (statuses as of 10/17/2021) [facility] History of Past illness Narrative* Problem Noted Date Resolved Date Clostridium difficile diarrhea 08/14/2014 0 11/26/2018 Pain in Soft Tissues of Limb 07/09/2008 Calcaneal spur 07/09/2008 09/05/2011 Internal Hemorrhoids without Mention of Complica tion 11/22/2007 09/05/2011 Diarrhea 05/10/2007 11/26/2018 Acute Gastritis without Mention of Hemorrhage 09/05/2011 Carpal tunnel syndrome 03/05/2006 2 Overview: Had surgery 1999 and 2005 and this is resolved Mgrn Concha Smith Wo Intrc Mgr 01/02/20062013 Headache(784.0) 11/21/2005 01/02/2006 documented as of this encounter (statuses as of 12/26/2021) [facility] [place] History of Past illness Narrative* Problem Noted Date Resolved Date Clostridium difficile diarrhea 08/14/2014 0 11/26/2018 Pain in Soft Tissues of Limb 07/09/2008 Calcaneal spur 07/09/2008 09/05/2011 Internal Hemorrhoids without Mention of Complica tion 11/22/2007 09/05/2011 Diarrhea 05/10/2007 11/26/2018 Acute Gastritis without Mention of Hemorrhage 09/05/2011 Carpal tunnel syndrome 03/05/2006 2 Overview: Had surgery 1999 and 2005 and this is resolved Mgrn Concha Smith Wo Intrc Mgr 01/02/20062013 Headache(784.0) 11/21/2005 01/02/2006 documented as of this encounter (statuses as of 01/06/2022) [facility] History of Past illness Narrative* Problem Noted Date Resolved Date Clostridium difficile diarrhea 08/14/2014 0 11/26/2018 Pain in Soft Tissues of Limb 07/09/2008 Calcaneal spur 07/09/2008 09/05/2011 Internal Hemorrhoids without Mention of Complica tion 11/22/2007 09/05/2011 Diarrhea 05/10/2007 11/26/2018 Acute Gastritis without Mention of Hemorrhage 09/05/2011 Carpal tunnel syndrome 03/05/2006 2 Overview: Had surgery 1999 and 2005 and this is resolved Mgrn Wo Aura Wo Intrc Mgr 01/02/20062013 Headache(784.0) 11/21/2005 01/02/2006 documented as of this encounter (statuses as of 02/28/2022) [facility] [place] History of Past illness Narrative* Problem Noted Date Resolved Date Clostridium difficile diarrhea 08/14/2014 0 11/26/2018 Pain in Soft Tissues of Limb 07/09/2008 Calcaneal spur 07/09/2008 09/05/2011 Internal Hemorrhoids without Mention of Complica tion 11/22/2007 09/05/2011 Diarrhea 05/10/2007 11/26/2018 Acute Gastritis without Mention of Hemorrhage 09/05/2011 Carpal tunnel syndrome 03/05/2006 2 Overview: Had surgery 1999 and 2005 and this is resolved Mgrn Wo Aura Wo Intrc Mgr 01/02/20062013 Headache(784.0) 11/21/2005 01/02/2006 documented as of this encounter (statuses as of 03/31/2022) [facility] History of Past illness Narrative* Problem Noted Date Resolved Date Clostridium difficile diarrhea 08/14/2014 0 11/26/2018 Pain in Soft Tissues of Limb 07/09/2008 Calcaneal spur 07/09/2008 09/05/2011 Internal Hemorrhoids without Mention of Complica tion 11/22/2007 09/05/2011 Diarrhea 05/10/2007 11/26/2018 Acute Gastritis without Mention of Hemorrhage 09/05/2011 Carpal tunnel syndrome 03/05/2006 2 Overview: Had surgery 1999 and 2005 and this is resolved Mgrn Concha Smith Wo Intrc Mgr 01/02/20062013 Headache(784.0) 11/21/2005 01/02/2006 documented as of this encounter (statuses as of 04/19/2022) [facility] History of Past illness Narrative* Problem Noted Date Resolved Date Clostridium difficile diarrhea 08/14/2014 0 11/26/2018 Pain in Soft Tissues of Limb 07/09/2008 Calcaneal spur 07/09/2008 09/05/2011 Internal Hemorrhoids without Mention of Complica tion 11/22/2007 09/05/2011 Diarrhea 05/10/2007 11/26/2018 Acute Gastritis without Mention of Hemorrhage 09/05/2011 Carpal tunnel syndrome 03/05/2006 2 Overview: Had surgery 1999 and 2005 and this is resolved Mgrn Wo Sarah Wo Intrc Mgr 01/02/20062013 Headache(784.0) 11/21/2005 01/02/2006 documented as of this encounter (statuses as of 06/16/2022) [facility] [place] History of Past illness Narrative* Problem Noted Date Resolved Date Clostridium difficile diarrhea 08/14/2014 0 11/26/2018 Pain in Soft Tissues of Limb 07/09/2008 Calcaneal spur 07/09/2008 09/05/2011 Internal Hemorrhoids without Mention of Complica tion 11/22/2007 09/05/2011 Diarrhea 05/10/2007 11/26/2018 Acute Gastritis without Mention of Hemorrhage 09/05/2011 Carpal tunnel syndrome 03/05/2006 2 Overview: Had surgery 1999 and 2005 and this is resolved Mgrn Concha Smith Wo Intrc Mgr 01/02/20062013 Headache(784.0) 11/21/2005 01/02/2006 documented as of this encounter (statuses as of 07/13/2022) [facility] [place] History of Past illness Narrative* Problem Noted Date Resolved Date Clostridium difficile diarrhea 08/14/2014 0 11/26/2018 Pain in Soft Tissues of Limb 07/09/2008 Calcaneal spur 07/09/2008 09/05/2011 Internal Hemorrhoids without Mention of Complica tion 11/22/2007 09/05/2011 Diarrhea 05/10/2007 11/26/2018 Acute Gastritis without Mention of Hemorrhage 09/05/2011 Carpal tunnel syndrome 03/05/2006 2 Overview: Had surgery 1999 and 2005 and this is resolved Mgrn Wo Aura Wo Intrc Mgr 01/02/20062013 Headache(784.0) 11/21/2005 01/02/2006 documented as of this encounter (statuses as of 07/16/2022) [facility] [place] History of Past illness Narrative* Problem Noted Date Resolved Date Clostridium difficile diarrhea 08/14/2014 0 11/26/2018 Pain in Soft Tissues of Limb 07/09/2008 Calcaneal spur 07/09/2008 09/05/2011 Internal Hemorrhoids without Mention of Complica tion 11/22/2007 09/05/2011 Diarrhea 05/10/2007 11/26/2018 Acute Gastritis without Mention of Hemorrhage 09/05/2011 Carpal tunnel syndrome 03/05/2006 2 Overview: Had surgery 1999 and 2005 and this is resolved Mgrn Wo Aura Wo Intrc Mgr 01/02/20062013 Headache(784.0) 11/21/2005 01/02/2006 documented as of this encounter (statuses as of 07/17/2022) [facility] [place] History of Past illness Narrative* Problem Noted Date Resolved Date Clostridium difficile diarrhea 08/14/2014 0 11/26/2018 Pain in Soft Tissues of Limb 07/09/2008 Calcaneal spur 07/09/2008 09/05/2011 Internal Hemorrhoids without Mention of Complica tion 11/22/2007 09/05/2011 Diarrhea 05/10/2007 11/26/2018 Acute Gastritis without Mention of Hemorrhage 09/05/2011 Carpal tunnel syndrome 03/05/2006 2 Overview: Had surgery 1999 and 2005 and this is resolved Mgrn Wo Aura Wo Intrc Mgr 01/02/20062013 Headache(784.0) 11/21/2005 01/02/2006 documented as of this encounter (statuses as of 07/18/2022) [facility] [place] History of Past illness Narrative* Problem Noted Date Resolved Date Clostridium difficile diarrhea 08/14/2014 0 11/26/2018 Pain in Soft Tissues of Limb 07/09/2008 Calcaneal spur 07/09/2008 09/05/2011 Internal Hemorrhoids without Mention of Complica tion 11/22/2007 09/05/2011 Diarrhea 05/10/2007 11/26/2018 Acute Gastritis without Mention of Hemorrhage 09/05/2011 Carpal tunnel syndrome 03/05/2006 2 Overview: Had surgery 1999 and 2005 and this is resolved Mgrn Wo Aura Wo Intrc Mgr 01/02/20062013 Headache(784.0) 11/21/2005 01/02/2006 documented as of this encounter (statuses as of 07/20/2022) [facility] History of Past illness Narrative* Problem Noted Date Resolved Date Clostridium difficile diarrhea 08/14/2014 0 11/26/2018 Pain in Soft Tissues of Limb 07/09/2008 Calcaneal spur 07/09/2008 09/05/2011 Internal Hemorrhoids without Mention of Complica tion 11/22/2007 09/05/2011 Diarrhea 05/10/2007 11/26/2018 Acute Gastritis without Mention of Hemorrhage 09/05/2011 Carpal tunnel syndrome 03/05/2006 2 Overview: Had surgery 1999 and 2005 and this is resolved Mgrn Wo Aura Wo Intrc Mgr 01/02/20062013 Headache(784.0) 11/21/2005 01/02/2006 documented as of this encounter (statuses as of 08/03/2022) [facility] History of Past illness Narrative* Problem Noted Date Diagnosed Date Resolved Date Clostridium difficile diarrhea 08/14/2014 11/26/2018 Pain in Soft Tissues of Limb 07/09/2008 09/05/2011 Calcaneal spur 07/09/2008 09/05/2011 Internal Hemorrhoids without Mention of Complication 11/22/2007 09/05/2011 Diarrhea 05/10/2007 11/26/2018 Acute Gastritis without Mention of Hemorrhage 05/10/19 08 09/05/2011 Carpal tunnel syndrome 03/05/200609/04 Overview: Had surgery 1999 and 2005 and this is resolved Mgrn Wo Aura Wo Intrc Mgr 01/02/2006 Headache(784.0) 11/21/2005 01/02/2006 documented as of this encounter (statuses as of 11/10/2022) [facility] History of Past illness Narrative* Problem Noted Date Diagnosed Date Resolved Date Clostridium difficile diarrhea 08/14/2014 11/26/2018 Pain in Soft Tissues of Limb 07/09/2008 09/05/2011 Calcaneal spur 07/09/2008 09/05/2011 Internal Hemorrhoids without Mention of Complication 11/22/2007 09/05/2011 Diarrhea 05/10/2007 11/26/2018 Acute Gastritis without Mention of Hemorrhage 05/10/19 08 09/05/2011 Carpal tunnel syndrome 03/05/200609/04 Overview: Had surgery 1999 and 2005 and this is resolved Mgrn Wo Aura Wo Intrc Mgr 01/02/2006 Headache(784.0) 11/21/2005 01/02/2006 documented as of this encounter (statuses as of 11/17/2022) [facility] History of Past illness Narrative* Problem Noted Date Diagnosed Date Resolved Date Clostridium difficile diarrhea 08/14/2014 11/26/2018 Pain in Soft Tissues of Limb 07/09/2008 09/05/2011 Calcaneal spur 07/09/2008 09/05/2011 Internal Hemorrhoids without Mention of Complication 11/22/2007 09/05/2011 Diarrhea 05/10/2007 11/26/2018 Acute Gastritis without Mention of Hemorrhage 05/10/1909/05/2011 Carpal tunnel syndrome 03/05/200609/04 Overview: Had surgery 1999 and 2005 and this is resolved Mgrn Wo Aura Wo Intrc Mgr 01/02/2006 Headache(784.0) 11/21/2005 01/02/2006 documented as of this encounter (statuses as of 11/21/2022) [facility] History of Past illness Narrative* Problem Noted Date Diagnosed Date Resolved Date Clostridium difficile diarrhea 08/14/2014 11/26/2018 Pain in Soft Tissues of Limb 07/09/2008 09/05/2011 Calcaneal spur 07/09/2008 09/05/2011 Internal Hemorrhoids without Mention of Complication 11/22/2007 09/05/2011 Diarrhea 05/10/2007 11/26/2018 Acute Gastritis without Mention of Hemorrhage 05/10/1909/05/2011 Carpal tunnel syndrome 03/05/200609/04 Overview: Had surgery 1999 and 2005 and this is resolved Mgrn Wo Aura Wo Intrc Mgr 01/02/2006 Headache(784.0) 11/21/2005 01/02/2006 documented as of this encounter (statuses as of 12/01/2022) [facility] History of Past illness Narrative* Problem Noted Date Diagnosed Date Resolved Date Clostridium difficile diarrhea 08/14/2014 11/26/2018 Pain in Soft Tissues of Limb 07/09/2008 09/05/2011 Calcaneal spur 07/09/2008 09/05/2011 Internal Hemorrhoids without Mention of Complication 11/22/2007 09/05/2011 Diarrhea 05/10/2007 11/26/2018 Acute Gastritis without Mention of Hemorrhage 05/10/1909/05/2011 Carpal tunnel syndrome 03/05/200609/04 Overview: Had surgery 1999 and 2005 and this is resolved Mgrn Wo Aura Wo Intrc Mgr 01/02/2006 Headache(784.0) 11/21/2005 01/02/2006 documented as of this encounter (statuses as of 02/18/2023) [facility] History of Past illness Narrative* Problem Noted Date Diagnosed Date Resolved Date Clostridium difficile diarrhea 08/14/2014 11/26/2018 Pain in Soft Tissues of Limb 07/09/2008 09/05/2011 Calcaneal spur 07/09/2008 09/05/2011 Internal Hemorrhoids without Mention of Complication 11/22/2007 09/05/2011 Diarrhea 05/10/2007 11/26/2018 Acute Gastritis without Mention of Hemorrhage 05/10/1909/05/2011 Carpal tunnel syndrome 03/05/200609/04 Overview: Had surgery 1999 and 2005 and this is resolved Mgrn Wo Aura Wo Intrc Mgr 01/02/2006 Headache(784.0) 11/21/2005 01/02/2006 documented as of this encounter (statuses as of 02/18/2023) [facility] Cough- Primary [facility] Diagnosis Encounter for screening mammogram for breast cancer [facility] Diagnosis Preop exam for internal medicine- Primary Other specified pre-operative examination Hyperlipidemia, mixed Mixed hyperlipidemia Irritable bowel syndrome, unspecified type Encounter for immunization Need for other specified prophylactic vaccination against single bacterial disease [facility] [facility] Diagnosis Pain- Primary Generalized pain documented in this encounter [facility] Diagnosis Acute leg pain, right- Primary Special screening for malignant neoplasms, colon Encounter for screening mammogram for malignant neoplasm of breast Other screening mammogram Screening for osteoporosis Special screening for osteoporosis Abnormal gait Abnormality of gait documented in this encounter [facility] Diagnosis Acute leg pain, right- Primary documented in this encounter [facility] Diagnosis Acute leg pain, right- Primary documented in this encounter [facility] Diagnosis Right hip pain Pain in joint, pelvic region and thigh documented in this encounter [facility] Diagnosis Screen for colon cancer- Primary Special screening for malignant neoplasms, colon documented in this encounter [facility] Diagnosis History of colonic polyps- Primary Personal history of colonic polyps Screen for colon cancer Special screening for malignant neoplasms, colon documented in this encounter [facility] Diagnosis Encounter for screening for malignant neoplasm of colon- Primary Special screening for malignant neoplasms, colon History of colonic polyps Personal history of colonic polyps documented in this encounter [facility] note* Diagnosis Encounter for screening mammogram for malignant neoplasm of breast Other screening mammogram documented in this encounter [facility] for referral (narrative)* Diagnostic Procedure Only (Routine) - Pending Review Specialty Diagnoses / Procedures Referred By Contac t Referred To Contact BR IMAGING Diagnoses Encounter for screening mammogram for breast cancer Procedures BEULAH SCREENING SCREENING MAMMOGRAPHY BI 2-VIEW BREAST INC CAD Frederic Ambrosio MD [address] [place] [address] [facility] Imaging [address] [facility] [place] [address] Referral ID Status Reason Start Date Expiration Date Visits Requested Visits Authorized [id number] Pending Review Auto-Generat ed Referral 10/12/2021 11/11/2022 1 1 [facility] for referral (narrative)* Diagnostic Procedure Only (Urgent) - Closed Specialty Diagnoses / Procedures Referred By Maliaac t Referred To Contact XR IMAGING Diagnoses Pain Procedures XR HAND GENERAL 3V PA/LAT/OBL LEFT RADEX HAND MINIMUM 3 VIEWS Rehana Garcia APRN.CNP [address] [place] [id number] Xr Imaging Referral ID Status Reason Start Date Expiration Date V isits Requested Visits Authorized [id number] Closed Auto-Generate d Referral 03/31/2022 04/30/2023 1 1 [facility] for referral (narrative)* Diagnostic Procedure Only (Routine) - Closed Specialty Diagnoses / Procedures Referred By Contac t Referred To Contact XR IMAGING Diagnoses Acute leg pain, right Procedures XR KNEE GENERAL 4V AP BOTH/PA BOTH/LAT/MERC RIGHT RADIOLOGIC EXAM KNEE COMPLETE 4/MORE VIEWS Frederic Ambrosio MD [address] [place] [address] Xr Imaging Referral ID Status Reason Start Date Expiration Date V isits Requested Visits Authorized [id number] Closed Auto-Generate d Referral 07/13/2022 08/12/2023 1 1 * Diagnostic Procedure Only (Routine) - Closed Specialty Diagnoses / Procedures Referred By Maliaac t Referred To Contact XR IMAGING Diagnoses Acute leg pain, right Procedures XR HIP GENERAL 3V PELV/AP/LAT RIGHT RADEX HIP UNILATERAL WITH PELVIS 2-3 VIEWS Frederic Ambrosio MD [address] [place] [address] Xr Imaging Referral ID Status Reason Start Date Expiration Date V isits Requested Visits Authorized [id number] Closed Auto-Generate d Referral 07/13/2022 08/12/2023 1 1 * Outpatient Procedure (Routine) - Pending Review Specialty Diagnoses / Procedures Referred By Contac t Referred To Contact [facility] Diagnoses Special screening for malignant neoplasms, colon Procedures COLONOSCOPY SCREENING COLONOSCOPY FLX DX W/COLLJ [place] [address] [place] [address] [facility] [address] [place] [address] Referral ID Status Reason Start Date Expiration Date Visits Requested Visits Authorized [id number] Pending Review Auto-Generat ed Referral 07/13/2022 07/14/2023 1 1 * Diagnostic Procedure Only (Routine) - Pending Review Specialty Diagnoses / Procedures Referred By Maliaac t Referred To Contact BR IMAGING Diagnoses Encounter for screening mammogram for malignant neoplasm of breast Procedures BEULAH SCREENING SCREENING MAMMOGRAPHY BI 2-VIEW BREAST INC CAD Frederic Ambrosio MD [address] [place] [address] Br Imaging [address] [place] [address] Referral ID Status Reason Start Date Expiration Date Visits Requested Visits Authorized [id number] Pending Review Auto-Generat ed Referral 07/13/2022 08/12/2023 1 1 [facility] for referral (narrative)* Outpatient Procedure (Routine) - Pending Review Specialty Diagnoses / Procedures Referred By Contac t Referred To Contact [facility] [place] Diagnoses Acute leg pain, right Procedures US LEG VEIN DVT UNL VAS LAB DUP-SCAN XTR VEINS UNILATERAL/LIMITED STUDY Frederic Ambrosio MD [address] [place] [address] [facility] [place] [id number] Referral ID Status Reason Start Date Expiration Date Visits Requested Visits Authorized [id number] Pending Review Auto-Generat ed Referral 07/17/2022 07/17/2023 1 1 T [facility] for referral (narrative)* Outpatient Procedure (Routine) - Closed Specialty Diagnoses / Procedures Referred By Contac t Referred To Contact [facility] Diagnoses History of colonic polyps Procedures COLONOSCOPY SCREENING COLONOSCOPY FLX DX W/COLLJ SPEC WHEN PFRMD Berkley Chen PA-C [address] [place] [address] [facility] [place] [address] Referral ID Status Reason Start Date Expiration Date V isits Requested Visits Authorized [id number] Closed Auto-Generate d Referral 12/01/2022 12/02/2023 1 1 [facility] for referral (narrative)* Diagnostic Procedure Only (Routine) - Closed Specialty Diagnoses / Procedures Referred By Contac t Referred To Contact BR IMAGING Diagnoses Encounter for screening mammogram for malignant neoplasm of breast Procedures BEULAH SCREENING SCREENING MAMMOGRAPHY BI 2-VIEW BREAST INC CAD Frederic Ambrosio MD [address] [place] [address] Br Imaging [address] [place] [address] Referral ID Status Reason Start Date Expiration Date V isits Requested Visits Authorized [id number] Closed Auto-Generate d Referral 07/13/2022 08/12/2023 1 1 [facility] for visit Narrative* Outpatient Procedure (Routine) - Closed Specialty Diagnoses / Procedures Referred By Contac t Referred To Contact [facility] [place] Diagnoses History of colonic polyps Procedures COLONOSCOPY SCREENING COLONOSCOPY FLX DX W/COLLJ SPEC WHEN PFRMD Berkley Chen PA-C [address] [place] [address] [facility] [address] [address] Referral ID Status Reason Start Date Expiration Date V isits Requested Visits Authorized [id number] Closed Auto-Generate d Referral 12/01/2022 12/02/2023 1 1 [facility] for visit Narrative* Diagnostic Procedure Only (Routine) - Closed Specialty Diagnoses / Procedures Referred By Eben malcolm Referred To Contact [facility] IMAG[facility] Diagnoses Encounter for screening mammogram for malignant neoplasm of breast Procedures BEULAH SCREENING SCREENING MAMMOGRAPHY BI 2-VIEW BREAST INC CAD Frederic Ambrosio MD [address] [place] [address] Br Imaging [address] [place] [id number] Referral ID Status Reason Start Date Expiration Date V isits Requested Visits Authorized [id number] Closed Auto-Generate d Referral 07/13/2022 08/12/2023 1 1 [facility] [place] Medications Administered Section Inactive Administered Medications - up to 3 most recent administrations Medication Order MAR Action Action Date Dose Rate Site keTORolac 60 mg injection (Toradol) 60 mg, INTRAMUSCULAR, ONCE, 1 dose, On Darby 07/13/22 at 1230, Ketorolac (Toradol) is indicated for the short-term (up to 5 days) management of moderately severe acute pain. Continuation of ketorolac (Toradol) beyond 5 days increases the risk of developing serious adverse events. Please verify the duration of therapy for ketorolac (Toradol)., If ordered PRN for pain, patient/guardian may elect to receive this medication for higher pain levels INSTEAD of the opioid, if preferred: Yes Given 07/13/2022 12:33 PM EDT 60 mg Buttocks, Right Inactive Administered Medications - up to 3 most recent administrations Medication Order MAR Action Action Date Dose Rate Site diphenhydrAMINE 12.5-50 mg injection (BENADRYL) 12.5-50 mg, INTRAVENOUS, DIRECTED, Starting on Darby 12/28/22 at 1030, Until Darby 12/28/22 at 1429, DOSING DIRECTED BY PHYSICIAN FOR PROCEDURAL SEDATION ONLY, Intraprocedure Given 12/28/2022 10:18 AM EDT 50 mg fentaNYL 50 mcg/mL 25-100 mcg injection (SUBLIMAZE) 25-100 mcg, INTRAVENOUS, DIRECTED, Starting on Darby 12/28/22 at 1030, Until Darby 12/28/22 at 1429, DOSING DIRECTED BY PHYSICIAN FOR PROCEDURAL SEDATION ONLY, Intraprocedure Given 12/28/2022 10:16 AM EDT 50 mcg lactated ringers iv infusion 30 mL/hr, INTRAVENOUS, CONTINUOUS, Starting on Darby 12/28/22 at 1000, Until Darby 12/28/22 at 1046, Preprocedure New Bag/Syringe/Denisa le 12/28/2022 9:48 AM EDT 30 mL/hr 30 mL/hr Arm, Right midazolam 1-5 mg injection (VERSED) 1-5 mg, INTRAVENOUS, DIRECTED, Starting on Darby 12/28/22 at 1030, Until Darby 12/28/22 at 1429, DOSING DIRECTED BY PHYSICIAN FOR PROCEDURAL SEDATION ONLY, Intraprocedure Given 12/28/2022 10:16 AM EDT 3 mg Reason for Referral Specialty Diagnoses / Procedures Referred By Eben malcolm Referred To Contact General Surgery Diagnoses Screen for colon cancer Procedures CONSULT TO GENERAL SURGERY OFFICE/OUTPATIENT NEW HIGH MDM 60-74 MINUTES Older, Moon, LEAN [employer]IX [employer] SENIOR SPECIALIST.[employer] REPRESENTATIVE [address] [place] [address] Referral ID Status Reason Start Date Expiration Date Visits Requested Visits Authorized [id number] Pending Review PCP Requested Referral 11/20/2022 11/20/2023 1 1 Summary Purpose Family History No Family History Records Found Advance Directives No Advanced Directives Records Found Additional Source Comments Source Comments (unrecognize d section and content) In the event this informatio n is protected by the Federal Confidentiality of Alcohol and Drug Abuse Patient Records regulations: The Federal rules restrict any use of the information to criminally investigate or prosecute any alcohol or drug abuse patient.[facility] [place] this information is protected by the Federal Confidentiality of Alcohol and Drug Abuse Patient Records regulations: The Federal rules restrict any use of the information to criminally investigate or prosecute any alcohol or drug abuse patient.[facility] the event this information is protected by the Federal Confidentiality of Alcohol and Drug Abuse Patient Records regulations: The Federal rules restrict any use of the information to criminally investigate or prosecute any alcohol or drug abuse patient.[facility] event this information is protected by the Federal Confidentiality of Alcohol and Drug Abuse Patient Records regulations: The Federal rules restrict any use of the information to criminally investigate or prosecute any alcohol or drug abuse patient.[facility] [place] event this information is protected by the Federal Confidentiality of Alcohol and Drug Abuse Patient Records regulations: The Federal rules restrict any use of the information to criminally investigate or prosecute any alcohol or drug abuse patient.[facility] [place] the event this information is protected by the Federal Confidentiality of Alcohol and Drug Abuse Patient Records regulations: The Federal rules restrict any use of the information to criminally investigate or prosecute any alcohol or drug abuse patient.[facility] [place] the event this information is protected by the Federal Confidentiality of Alcohol and Drug Abuse Patient Records regulations: The Federal rules restrict any use of the information to criminally investigate or prosecute any alcohol or drug abuse patient.[facility] [place] the event this information is protected by the Federal Confidentiality of Alcohol and Drug Abuse Patient Records regulations: The Federal rules restrict any use of the information to criminally investigate or prosecute any alcohol or drug abuse patient.[facility] [place] the event this information is protected by the Federal Confidentiality of Alcohol and Drug Abuse Patient Records regulations: The Federal rules restrict any use of the information to criminally investigate or prosecute any alcohol or drug abuse patient.[facility] [place] the event this information is protected by the Federal Confidentiality of Alcohol and Drug Abuse Patient Records regulations: The Federal rules restrict any use of the information to criminally investigate or prosecute any alcohol or drug abuse patient.[facility] [place] the event this information is protected by the Federal Confidentiality of Alcohol and Drug Abuse Patient Records regulations: The Federal rules restrict any use of the information to criminally investigate or prosecute any alcohol or drug abuse patient.[facility] [place] the event this information is protected by the Federal Confidentiality of Alcohol and Drug Abuse Patient Records regulations: The Federal rules restrict any use of the information to criminally investigate or prosecute any alcohol or drug abuse patient.[facility] [place] the event this information is protected by the Federal Confidentiality of Alcohol and Drug Abuse Patient Records regulations: The Federal rules restrict any use of the information to criminally investigate or prosecute any alcohol or drug abuse patient.[facility] the event this information is protected by the Federal Confidentiality of Alcohol and Drug Abuse Patient Records regulations: The Federal rules restrict any use of the information to criminally investigate or prosecute any alcohol or drug abuse patient.[facility] the event this information is protected by the Federal Confidentiality of Alcohol and Drug Abuse Patient Records regulations: The Federal rules restrict any use of the information to criminally investigate or prosecute any alcohol or drug abuse patient.[facility] [place] the event this information is protected by the Federal Confidentiality of Alcohol and Drug Abuse Patient Records regulations: The Federal rules restrict any use of the information to criminally investigate or prosecute any alcohol or drug abuse patient.[facility] [place] the event this information is protected by the Federal Confidentiality of Alcohol and Drug Abuse Patient Records regulations: The Federal rules restrict any use of the information to criminally investigate or prosecute any alcohol or drug abuse patient.[facility] [place] the event this information is protected by the Federal Confidentiality of Alcohol and Drug Abuse Patient Records regulations: The Federal rules restrict any use of the information to criminally investigate or prosecute any alcohol or drug abuse patient.[facility] [place] the event this information is protected by the Federal Confidentiality of Alcohol and Drug Abuse Patient Records regulations: The Federal rules restrict any use of the information to criminally investigate or prosecute any alcohol or drug abuse patient.[facility] [place] the event this information is protected by the Federal Confidentiality of Alcohol and Drug Abuse Patient Records regulations: The Federal rules restrict any use of the information to criminally investigate or prosecute any alcohol or drug abuse patient.[facility] [place] the event this information is protected by the Federal Confidentiality of Alcohol and Drug Abuse Patient Records regulations: The Federal rules restrict any use of the information to criminally investigate or prosecute any alcohol or drug abuse patient.[facility] [place] Reason for Visit (unrecogniz ed section and content) Reason Onset Date Comments Population Health Navigation Outreach 08/22/2021 [employer] Reason Onset Date Comments Population Health Navigation Outreach 12/26/2021 [employer] Care Gaps Reason Comments Pre-Op Exam for eye surgery Reason Onset Date Comments Population Health Navigation Outreach 02/28/2022 [employer] Reason Comments Hand Injury L hand smashed in ca r door x this AM Reason Onset Date Comments Population Health Navigation Outreach 04/13/2022 [employer] Reason Onset Date Comments Population Health Navigation Outreach 06/16/2022 [employer] Care Gaps Reason Comments Right Hip Pain Reason Comments Leg Pain Reason Comments Results results Reason Comments 1 week follow-up Reason Comments Cancelled Request Reason Onset Date Comments Refill Request 11/15/2022 Reason Comments Orders Reason Comments Consult Screening for colon cancer Specialty Diagnoses / Procedures Referred By Eben malcolm Referred To Contact General Surgery Diagnoses Screen for colon cancer Procedures CONSULT TO GENERAL SURGERY OFFICE/OUTPATIENT NEW HIGH MDM 60-74 MINUTES Older, SHILO Mustafa.[employer] REPRESENTATIVE [address] [place] [address] Referral ID Status Reason Start Date Expiration Date Visits Requested Visits Authorized [id number] Pending Review PCP Requested Referral 11/20/2022 11/20/2023 1 1 Care Teams (unrecognized sec tion and content) Waste Transportation Technician Relationship Specialty Start Date End Date Frederic Ambrosio MD [address] [place] [address] PCP - General 06/21/06 Waste Transportation Technician Relationship Specialty Start Date End Date Frederic Ambrosio MD [address] [place] [address], [place] [address] PCP - General 06/21/06 Waste Transportation Technician Relationship Specialty Start Date End Date Frederic Ambrosio MD [address] [place] [address], [place] [address] PCP - General 06/21/06 Waste Transportation Technician Relationship Specialty Start Date End Date Frederic Ambrosio MD [address] [place] [address], [place] [address] PCP - General 06/21/06 Waste Transportation Technician Relationship Specialty Start Date End Date Frederic Ambrosio MD [facility] [place] [address] PCP - General 06/21/06 Waste Transportation Technician Relationship Specialty Start Date End Date Frederic Ambrosio MD [address] [place] [address], [place] [address] PCP - General 06/21/06 Waste Transportation Technician Relationship Specialty Start Date End Date Frederic Ambrosio MD [address] [place] [address], [place] [address] PCP - General 06/21/06 Waste Transportation Technician Relationship Specialty Start Date End Date Frederic Ambrosio MD [address] [place] [address], [place] [address] PCP - General 06/21/06 Waste Transportation Technician Relationship Specialty Start Date End Date Frederic Ambrosio MD [address] [place] [address] PCP - General 06/21/06 Waste Transportation Technician Relationship Specialty Start Date End Date Frederic Ambrosio MD [address] [place] [address] PCP - General 06/21/06 Waste Transportation Technician Relationship Specialty Start Date End Date Frederic Ambrosio MD [address] [place] [address] PCP - General 06/21/06 Waste Transportation Technician Relationship Specialty Start Date End Date Frederic Ambrosio MD [address] [place] [address] PCP - General 06/21/06 Waste Transportation Technician Relationship Specialty Start Date End Date Frederic Ambrosio MD [address] [place] [address] PCP - General 06/21/06 Waste Transportation Technician Relationship Specialty Start Date End Date Frederic Ambrosio MD [address] [place] [address] PCP - General 06/21/06 Waste Transportation Technician Relationship Specialty Start Date End Date Frederic Ambrosio MD [address] [place] [address] PCP - General 06/21/06 Waste Transportation Technician Relationship Specialty Start Date End Date Frederic Ambrosio MD [address] [place] [address] PCP - General 06/21/06 INFORMATION SOURCE (unrecogn ized section and content) FOR RECORDS PERTAINING TO PATIENTS WHO ARE OR HAVE BEEN ENROLLED IN A CHEMICAL DEPENDENCY/SUBSTANCEABUSE PROGRAM, SOME INFORMATION MAY BE OMITTED. This clinical summary was aggregated from multiple sources. Caution should be exercised in using it in the provision of clinical care. This summary normalizes information from multiple sources, and as a consequence, information in this document may materially change the coding, format and clinical context of patient data. In addition, data may be omitted in some cases. CLINICAL DECISIONS SHOULD BE BASED ON THE PRIMARY CLINICAL RECORDS. [facility] [employer], [facility]. provides no warranty or guarantee of the accuracy or completeness of information in this document.
[2023-04-13] MEDS: HYDROcodone Bitartrate/Apap 5/325 Tablet PO (21:43)
[2023-04-13] MEDS: Lidocaine 2% /Epi 1:100 (20ml) 20 ML VIAL INFILT (21:44)
[2023-04-13 22:53] VITALS: BP 109/68; PULSE 67; RESP 18; O2SAT 97
== END 2023-04-13 22:53 | disposition home or self-care (01) ==
PROVIDERS: Emergency Provider Emergency Medicine; PCP Internal Medicine; Visit Provider Emergency Medicine
DX: K91.840 Postprocedural hemorrhage of a digestive system organ or structure following a digestive system procedure (principal)
CPT/HCPCS: 41899; 99282

== ENCOUNTER 2023-07-01 14:28 | Emergency (ER) | payer MEDICARE, SELFPAY ==
[2023-07-01 14:29] VITALS: BP 131/63; PULSE 83; RESP 14; TEMP 36.6; O2SAT 97
[2023-07-01 14:34] VITALS: TEMP 36.4; BMI 25.2
--- NOTE | 2023-07-01 15:17 | EX.ED.DYSGE1 ---
HPI <SHERRY Cardenas - Last Filed: 07/01/23 17:43> History of Present Illness Chief Complaint: Lower Extremity Injury Narrative Narrative: 72-year-old female states she has a history of osteoarthritis and osteoporosis. Over the last couple days her right knee became painful and swollen. No injury. She uses a cane at baseline but today after walking and standing a lot in adventism she is having difficulty ambulating. She went to urgent care and they scanned her ear and told her she had a fever and sent her to the ED. Here her oral temperature is normal. She denies fever or chills at home. She takes Tylenol or ibuprofen for pain. She has a remote history of right knee ligament surgery and has an orthopedist she is due to see in 3 days. PFSH <SHERRY Cardenas - Last Filed: 07/01/23 17:43> PFSH Home Medications ketorolac 0.5 % eye drops 1 drp LEFT EYE Q6H 08/12/21 [History Last Taken Unknown] ofloxacin 0.3 % eye drops 1 drp LEFT EYE Q6H 08/12/21 [History Last Taken Unknown] cyclobenzaprine 10 mg tablet 10 mg PO TID PRN Muscle Spasm #20 TABLETS 07/15/22 [Rx Last Taken Unknown] ibuprofen 600 mg tablet 600 mg PO Q8H PRN pain #30 TABLETS 07/15/22 [Rx Last Taken Unknown] hydrocodone-acetaminophen 5-325mg 5mg-325mg 1 tab PO Q6H PRN pain 3 days #10 tabs 07/01/23 [Rx Last Taken Unknown] Allergy/AdvReac Type Severity Reaction Status Date / Time sulfamethoxazole Allergy Rash Verified 07/01/23 14:29 [From ] trimethoprim [From ] Allergy Rash Verified 07/01/23 14:29 meloxicam AdvReac Other Verified 07/01/23 14:29 Social History household members: none Smoking Status: Never smoker substance use type: does not use ROS <SHERRY Cardenas - Last Filed: 07/01/23 17:43> ROS ED ROS Narrative Constitutional: Negative for fever, chills, malaise. Neuro: Negative for motor/sensory dysfunction. Skin: Negative for rash. Musc: Positive for right knee pain, swelling. No trauma. EXAM <SHERRY Cardenas - Last Filed: 07/01/23 17:43> Physical Exam Narrative Exam Narrative: CONST: Patient sitting in no acute distress. EYES: Normal inspection. NECK: Normal inspection. RESP: No respiratory distress, CTAB. CVS: Regular rate and rhythm, no murmur, no gallop. SKIN: Color normal, no rash, warm, dry, intact. EXTREMITIES: Right knee effusion and patellar tenderness. No warmth or redness. Full ROM, 5/5 strength in hip flexion, knee flexion/extension, DF/PF. Normal sensation and 2+ DP pulses. Negative anterior/posterior drawer and varus and valgus stress. NEURO: Oriented and answering questions appropriately. PSYCH: Normal affect. Const Vital Signs: 07/01/23 14:29 07/01/23 14:34 07/01/23 16:30 Temperature 98 F 97.5 F L Temperature Source Temporal Oral Pulse Rate 83 68 Respiratory Rate 14 16 Blood Pressure 131/63 H 124/76 H Blood Pressure Mean 85 92 Pulse Ox 97 97 Oxygen Delivery Method Room Air Room Air 07/01/23 17:44 Temperature 97.9 F Temperature Source Pulse Rate 68 Respiratory Rate 16 Blood Pressure 124/76 H Blood Pressure Mean 92 Pulse Ox 97 Oxygen Delivery Method <Dr. Alen Miller DO - Last Filed: 07/01/23 18:35> Physical Exam Const Vital Signs: 07/01/23 14:29 07/01/23 14:34 07/01/23 16:30 Temperature 98 F 97.5 F L Temperature Source Temporal Oral Pulse Rate 83 68 Respiratory Rate 14 16 Blood Pressure 131/63 H 124/76 H Blood Pressure Mean 85 92 Pulse Ox 97 97 Oxygen Delivery Method Room Air Room Air 07/01/23 17:44 Temperature 97.9 F Temperature Source Pulse Rate 68 Respiratory Rate 16 Blood Pressure 124/76 H Blood Pressure Mean 92 Pulse Ox 97 Oxygen Delivery Method [facility] <SHERRY Cardenas - Last Filed: 07/01/23 17:43> [facility] Narrative Medical decision making narrative: Patient has a right knee effusion. There is no heat or redness. She has full range of motion and is neurovascular intact. No evidence of ligamentous or meniscal injury on exam. She is not febrile and based on exam I do not suspect a septic joint. X-ray shows advanced osteoarthritis with a joint effusion but no other acute findings. The ED attending drained her knee for therapeutic comfort and an Doug wrap was applied. I prescribed a short course of [place] and she has follow-up scheduled with her orthopedist this week. She was discharged in stable condition. Radiography Diagnostic Testing: Clinical Impression(s) from Imaging Studies Knee X-Ray 07/01/23 15:20 IMPRESSION: Degenerative arthrosis. There is a soft tissue prominence in the suprapatellar region suggesting a small volume joint effusion. Electronically Signed: Umair Doe MD at 15:43 EDT , ED attending interpretation of right knee shows osteoarthritis, no acute fracture or dislocation. <Dr. Alen Miller, DO - Last Filed: 07/01/23 18:35> [facility] Narrative Medical decision making narrative: Patient has a right knee effusion. There is no heat or redness. She has full range of motion and is neurovascular intact. No evidence of ligamentous or meniscal injury on exam. She is not febrile and based on exam I do not suspect a septic joint. X-ray shows advanced osteoarthritis with a joint effusion but no other acute findings. The ED attending drained her knee for therapeutic comfort and an Doug wrap was applied. I prescribed a short course of [place] and she has follow-up scheduled with her orthopedist this week. She was discharged in stable condition. I have personally performed a face to face assessment of the patient and have reviewed the JOSE C Note. I performed a substantive portion of the visit including all aspects of the following. My osei findings include: History is 72-year-old female with a history of rheumatoid arthritis presenting to the emergency room with right knee pain and swelling. Patient states that particularly after adventism today she was having increased pain and swelling in the knee and she went to urgent care. Reportedly she was told she had a fever was concern for an infection of the leg. Several oral temperature readings here including the 1 that I talked did not show a fever. She denies any redness to the leg. She has an appointment to see orthopedics in a few days. Exam is the suprapatellar region of the right knee is swollen with effusion. There is no significant erythema noted. She is able to straighten the leg and bend the leg. Medical Decison Making patient provided informed consent for a lateral thoracentesis of the right knee. Wound was washed with Betadine and allowed to dry and prepped with sterile towels. A 23-gauge needle was used to raise a wheal of the skin. An 18-gauge needle attached to a 30 cc syringe was used to drain approximately 35 cc of straw-colored fluid. There is no significant difficulty in obtaining the fluid. Needle was withdrawn Band-Aid and Doug wrap applied. Patient was advised that this is temporary fix and that orthopedic follow-up is essential. She notes understanding of the plan. I do not believe she has a septic joint. I do not believe there is acute trauma that would need to be managed by full immobilization. History & Record Review Discussion w/independent historian: Patient Radiography Diagnostic Testing: Clinical Impression(s) from Imaging Studies Knee X-Ray 07/01/23 15:20 IMPRESSION: Degenerative arthrosis. There is a soft tissue prominence in the suprapatellar region suggesting a small volume joint effusion. Electronically Signed: Umair Doe MD at 15:43 EDT Reading Location ID and State: [facility] / [place] , Service support , Discharge Plan Triage Chief Complaint: Lower Extremity Injury ED Midlevel Provider: Dione Wharton ED Provider: Alen Miller Dx/Rx/DC Orders Clinical Impression: Effusion of right knee, Acute pain of right knee, Osteoarthritis Instructions: ED Osteoarthritis Prescriptions: New hydrocodone-acetaminophen 5-325 mg tablet 1 tab PO Q6H PRN (Reason: pain) 3 Days Qty: 10 0RF No Action ofloxacin 0.3 % drops 1 drp LEFT EYE Q6H ketorolac 0.5 % drops 1 drp LEFT EYE Q6H cyclobenzaprine 10 mg tablet 10 mg PO TID PRN (Reason: Muscle Spasm) Qty: 20 0RF ibuprofen 600 mg tablet 600 mg PO Q8H PRN (Reason: pain) Qty: 30 0RF Primary Care Provider: Frederic Luong Referrals: Frederic Luong MD [Primary Care Provider] - Activity Restrictions/Additional Instructions: Keep the knee wrapped to reduce swelling and take hydrocodone as needed. If you do not need it take Tylenol every 6 hours. Follow-up with your orthopedic doctor. Disposition Disposition: Home, Self Care Discharge Date/Time: 07/01/23 17:46
--- NOTE | 2023-07-01 15:20 | RAD_ITS ---
STUDY: XR Knee Complete 4 Views or More 07/01/2023 3:41 PM REASON FOR EXAM: Female, 72 years old. pain right knee swelling and pain TECHNIQUE: XR Knee Complete 4 Views RIGHT COMPARISON: None FINDINGS: Normal visualized distal femur. Normal visualized proximal tibia and fibula. Normal proximal tibiofibular articulation. Subchondral cysts along the tibial spines. There is mild degenerative arthrosis of the medial femorotibial compartment. There is severe degenerative arthrosis of the lateral femorotibial compartment with severe joint space narrowing. There is mild degenerative arthrosis of the patellofemoral articulation. There is a soft tissue prominence in the suprapatellar region suggesting a small volume joint effusion. The soft tissue structures are unremarkable. RAD/Knee 4 or More Views IMPRESSION: Degenerative arthrosis. There is a soft tissue prominence in the suprapatellar region suggesting a small volume joint effusion. Electronically Signed: Umair Doe MD at 15:43 EDT ,
[2023-07-01] MEDS: HYDROcodone Bitartrate/Apap 5/325 Tablet PO (15:27)
--- OUTSIDE RECORDS SUMMARY | 2023-07-01 15:41 | XMS RPT_ITS | CCD ---
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 Name Role Phone [place] BLOOD, Frederic Carrera Primary Care Provider [phone] FREDERIC AMBROSIO Referring Unavailable AMBROSIO, FREDERIC Carrera Primary Care Unavailable FREDERIC AMBROSIO Referring Unavailable AMBROSIO, FREDERIC Carrera Primary Care Unavailable FREDERIC AMBROSIO Attending Unavailable AMBROSIO, FREDERIC Carrera Primary Care Unavailable AMBROSIO, FREDERIC Carrera Primary Care Unavailable AMBROSIO, FREDERIC Carrera Referring Unavailable AMBROSIO, FREDERIC Carrera Primary Care Unavailable AMBROSIO, FREDERIC Carrera Referring Unavailable AMBROSIO, FREDERIC Carrera Primary Care Unavailable AMBROSIO, FREDERIC Carrera Attending Unavailable HEBERT, FREDERIC Carrera Attending Unavailable SELF Referring Unavailable HEBERT, FREDERIC Carrera Primary Care Unavailable Susan Chen Referring Unavailable ALEN ARROYO Attending Unavailable HEBERT, FREDERIC Carrera Primary Care Unavailable Susan Chen Attending Unavailable HEBERT, FREDERIC Carrera Primary Care Unavailable MOON FELIZ Referring Unavailable AMBROSIO, FREDERIC Carrera Primary Care Unavailable MOON FELIZ Attending Unavailable Allergies Allergy Classification Reported Allergen(s) Allergy Type Date of Onset Reaction(s) Facility (20 sources) meloxicam; Translations: [MELOXICAM] Drug Allergy 10-22-19 13 Other: See Comments [facility] Work Phone: (20 sources) Sulfamethoxazole / Trimethoprim Drug Allergy 02-06-19 98 [facility] Work Phone: (1 source) Sulfamethoxazole / Trimethoprim Drug Allergy 06-04-19 24 [facility] Work Phone: (1 source) OTHER; Translations: [OTHER] Propensity to adverse reactions (disorder) 02-06-19 98 [facility] Repository Medications Current Medications Medication Drug [...] acetaminophen 650 mg extended release oral tablet (18 sources) take 1 tablet by mouth every [...] Chronic Immunizations and screening for infectious disease (2 sources) Patient encounter status; Translations: [Encounter for immunization] Episodic Nutritional deficiencies (20 sources) Vitamin D deficiency; Translations: [Vitamin D deficiency, unspecified] Onset: 09-18-2012 09-18-2012 Chronic Osteoporosis (7 sources) Senile osteoporosis; Translations: [Age-related osteoporosis without current pathological fracture] Onset: 08-11-2022 08-11-2022 Chronic Other connective tissue disease (1 source) Triggering of digit; Translations: [Trigger finger, right middle finger] 06-04-2023 Episodic Other gastrointestinal disorders (20 sources) Irritable bowel syndrome; Translations: [Irritable bowel syndrome without diarrhea] Onset: 11-21-2005 07-28-2009 Chronic Other lower respiratory disease (1 source) Cough; Translations: [Cough] Episodic Other nervous system disorders (1 source) Abnormal gait; Translations: [Unspecified abnormalities of gait and mobility] Episodic Other non-traumatic joint disorders (1 source) Pain in right hip joint; Translations: [Pain in right hip] 11-17-2022 Episodic Residual codes; unclassified (1 source) Pain; Translations: [Pain, unspecified] Episodic Residual codes; unclassified (2 sources) Memory impairment; Translations: [Other amnesia] Onset: 06-04-2023 06-04-2023 Episodic Past or Other Problems Problem Classification Problem Date Documented Da te Episodic/Chronic Other and unspecified benign neoplasm (20 sources) Benign neoplasm of colon; Translations: [Benign neoplasm of colon, unspecified] Onset: 11-22-2007 04-11-2021 Episodic Other and unspecified benign neoplasm (4 sources) History of polyp of colon; Translations: [Personal history of colonic polyps] Onset: 12-28-2022 12-01-2022 Episodic Other and unspecified benign neoplasm (1 source) Personal history of colonic polyps; Translations: [History of colonic polyps] Onset: 12-28-2022 Episodic Other connective tissue disease (1 source) [...] Translations: [Right hip pain] Onset: 09-05-2022 Episodic Other screening for suspected conditions (not mental disorders or infectious disease) (20 sources) Finding related to measurement of toxic substance; Translations: [Abnormal level of other drugs, medicaments and biological substances in specimens from other organs, systems and tissues] Onset: 05-05-2015 05-05-2015 Episodic Residual codes; unclassified (20 sources) Insomnia; Translations: [Insomnia, unspecified] Onset: 05-04-2015 05-04-2015 Episodic Spondylosis; intervertebral disc disorders; other back problems (20 sources) Low back pain; Translations: [Lumbago] Onset: 07-16-2006 04-11-2021 Episodic Results Test Name Value Interpretation Reference Range Facil ity Vital Signs Date Time Vital Sign Value Performing Clinician Faci lity 06-04-2023 15:45-0500 Body temperature 98.6 [degF] Frederic Ambrosio MD Work Phone: [facility] 06-04-2023 15:45-0500 Body weight 55.79 kg Frederic Ambrosio MD Work Phone: [facility] 06-04-2023 15:45-0500 Diastolic blood pressure 80 mm[Hg] Frederic Ambrosio MD Work Phone: [facility] 06-04-2023 15:45-0500 Heart rate 88 /min Frederic Ambrosio MD Work Phone: [facility] 06-04-2023 15:45-0500 Respiratory rate 16 /min Frederic Ambrosio MD Work Phone: [facility] 06-04-2023 15:45-0500 Systolic blood pressure 132 mm[Hg] Frederic Ambrosio MD Work Phone: [facility] 12-28-2022 11:26-0400 Diastolic blood pressure 69 mm[Hg] Alen Arroyo MD Work Phone: [facility] 12-28-2022 11:26-0400 Heart rate 56 /min Alen Arroyo MD Work Phone: [facility] 12-28-2022 11:26-0400 Respiratory rate 16 /min Alen Arroyo MD Work Phone: [facility] 12-28-2022 11:26-0400 SaO2% (BldA) [Mass fraction] 100 % Alen Arroyo MD Work Phone: [facility] 12-28-2022 11:26-0400 Systolic blood pressure 158 mm[Hg] Alen Arroyo MD Work Phone: [facility] 12-28-2022 09:52-0400 Body temperature 98.01 [degF] Alen Arroyo MD Work Phone: [facility] 12-28-2022 09:52-0400 Body weight 60.4 kg Alen Arroyo MD Work Phone: [facility] 12-01-2022 10:07-0400 Body height 157.5 cm Susan Tama PA-C Work Phone: [facility] 12-01-2022 10:07-0400 Body temperature 98.1 [degF] Susan April PA-C Work Phone: [facility] 12-01-2022 10:07-0400 Body weight 60.42 kg Susan April PA-C Work Phone: [facility] 12-01-2022 10:07-0400 Diastolic blood pressure 86 mm[Hg] Susan Tama PA-C Work Phone: [facility] 12-01-2022 10:07-0400 Heart rate 89 /min Susan Tama PA-C Work Phone: [facility] 12-01-2022 10:07-0400 SaO2% (BldA) [Mass fraction] 98 % Susan Tama PA-C Work Phone: [facility] 12-01-2022 10:07-0400 Systolic blood pressure 138 mm[Hg] Susan April PA-C Work Phone: [facility] 07-20-2022 11:04-0400 Body weight 61.24 kg Frederic Ambrosio MD Work Phone: [facility] 07-20-2022 11:04-0400 Diastolic blood pressure 78 mm[Hg] Frederci Ambrosio MD Work Phone: [facility] 07-20-2022 11:04-0400 Heart rate 80 /min Frederic Ambrosio MD Work Phone: [facility] 07-20-2022 11:04-0400 Respiratory rate 16 /min Frederic Ambrosio MD Work Phone: [facility] 07-20-2022 11:04-0400 Systolic blood pressure 134 mm[Hg] Frederic Ambrosio MD Work Phone: [facility] 07-13-2022 11:45-0400 Diastolic blood pressure 81 mm[Hg] Frederic Ambrosio MD Work Phone: [facility] 07-13-2022 11:45-0400 Heart rate 81 /min Frederic Ambrosio MD Work Phone: [facility] 07-13-2022 11:45-0400 Systolic blood pressure 137 mm[Hg] Frederic Ambrosio MD Work Phone: [facility] 07-13-2022 11:40-0400 Body weight 61.69 kg Frederic Ambrosio MD Work Phone: [facility] 07-13-2022 11:40-0400 Respiratory rate 16 /min Frederic Ambrosio MD Work Phone: [facility] 03-31-2022 11:07-0500 Body temperature 98.01 [degF] Rehana Rooney APRN.CUSTOMER SPECIALIST Work Phone: [facility] 03-31-2022 11:07-0500 Body weight 61.6 kg Rehana Rooney APRN.CUSTOMER SPECIALIST Work Phone: [facility] 03-31-2022 11:07-0500 Diastolic blood pressure 82 mm[Hg] Rehana Rooney APRN.CUSTOMER SPECIALIST Work Phone: [facility] 03-31-2022 11:07-0500 Heart rate 82 /min Rehana Rooney APRN.CUSTOMER SPECIALIST Work Phone: [facility] 03-31-2022 11:07-0500 Respiratory rate 18 /min Rehana Rooney APRN.CUSTOMER SPECIALIST Work Phone: [facility] 03-31-2022 11:07-0500 SaO2% (BldA) [Mass fraction] 99 % Rehana Rooney COATER HAND.CUSTOMER SPECIALIST Work Phone: [facility] 03-31-2022 11:07-0500 Systolic blood pressure 144 mm[Hg] Rehana Rooney COATER HAND.CUSTOMER SPECIALIST Work Phone: [facility] 01-06-2022 10:07-0400 Body height 150.5 cm Moon Older COATER HAND.CUSTOMER SPECIALIST Work Phone: [facility] 01-06-2022 10:07-0400 Body temperature 96.69 [degF] Moon Older COATER HAND.CUSTOMER SPECIALIST Work Phone: [facility] 01-06-2022 10:07-0400 Body weight 60.78 kg Moon Older COATER HAND.CUSTOMER SPECIALIST Work Phone: [facility] 01-06-2022 10:07-0400 Diastolic blood pressure 68 mm[Hg] Moon Older COATER HAND.CUSTOMER SPECIALIST Work Phone: [facility] 01-06-2022 10:07-0400 Heart rate 83 /min Moon Older COATER HAND.CUSTOMER SPECIALIST Work Phone: [facility] 01-06-2022 10:07-0400 Respiratory rate 16 /min Moon Older COATER HAND.CUSTOMER SPECIALIST Work Phone: [facility] 01-06-2022 10:07-0400 SaO2% (BldA) [Mass fraction] 99 % Moon Older COATER HAND.CUSTOMER SPECIALIST Work Phone: [facility] 01-06-2022 10:07-0400 Systolic blood pressure 110 mm[Hg] Moon Older COATER HAND.CUSTOMER SPECIALIST Work Phone: [facility] 07-05-2021 10:10-0400 Body temperature 98.29 [degF] [facility] CO[facility] HAND.CUSTOMER SPECIALIST Work Phone: [facility] 07-05-2021 10:10-0400 Body weight 60.42 [facility] COATER HAND.CUSTOMER SPECIALIST Work Phone: [facility] 07-05-2021 10:10-0400 Diastolic blood pressure 82 mm[Hg] [facility] COATER HAND.CUSTOMER SPECIALIST Work Phone: [facility] 07-05-2021 10:10-0400 Heart rate 75 /min [facility] HAND.CUSTOMER SPECIALIST Work Phone: [facility] 07-05-2021 10:10-0400 Respiratory rate 18 /min [facility] CO[facility] HAND.CUSTOMER SPECIALIST Work Phone: [facility] 07-05-2021 10:10-0400 SaO2% (BldA) [Mass fraction] 98 % [facility] COATER HAND.CUSTOMER SPECIALIST Work Phone: [facility] 07-05-2021 10:10-0400 Systolic blood pressure 138 mm[Hg] [facility] COATER HAND.CUSTOMER SPECIALIST Work Phone: [facility] Encounters Encounter Date Encounter Type Care Provider Facility Start: 06-04-2023 End: 06-04-2023 ambulatory FREDERIC AMBROSIO Facility:[facility] Start: 06-04-2023 End: 06-04-2023 Patient encounter procedure Frederic Ambrosio MD Work Phone: [facility] [place] Procedures Date Procedure Procedure Detail Performing Clinician Start: 06-04-2023 INFLUENZA VACCINE, P RSV FREE, AGE 65+ YR, HIGH DOSE, QUADRIVALENT (FLUZONE HIGH-DOSE) Frederic Ambrosio MD Work Phone: Start: 12-28-2022 Colonoscopy flx dx w /collj spec when pfrmd Susan Chen PA-C Work Phone: Start: 12-28-2022 Colonoscopy Alen quispe MD Work Phone: Start: 08-01-2022 End: 08-01-2022 Mammography Frederic Hill Work Phone: Start: 01-06-2022 INFLUENZA SEASONAL QUADRIVALENT HIGH DOSE AGE 65+ Moon Older COATER HAND.CUSTOMER SPECIALIST Work Phone: Start: 01-06-2022 Lipid 1996 panel - S salo or Plasma Alen Arroyo MD Work Phone: Start: 02-06-2014 Mammography Riaz thomson COATER HAND.CUSTOMER SPECIALIST Work Phone: Start: 05-23-2013 Colonoscopy Riaz gonzalesno COATER HAND.CUSTOMER SPECIALIST Work Phone: Plan of Treatment Date Care Activity Detail Author Start: 03-31-2032 Urine microalbumin profile [facility] Start: 12-29-2027 Colonoscopy Colonoscopy [facility] Start: 12-29-2027 Colorectal Cancer Screening Colorectal Cancer Screening [facility] Start: 12-29-2027 Screening for malignant neoplasm of colon [facility] Start: 01-06-2027 Lipid 1996 panel - Serum or Plasma Lipid Screening [facility] Start: 01-06-2027 Lipid panel Lipid Screening [facility] Start: 01-06-2027 LIPID SCREEN LIPID SCREEN [facility] Start: 07-13-2025 DIABETES SCREEN DIABETES SCREEN [facility] Start: 07-13-2025 Diabetes Screening Diabetes Screening [facility] Start: 01-06-2025 DIABETES SCREEN DIABETES SCREEN [facility] Start: 09-02-2023 End: 12-02-2023 Cobalamin (Vitamin B12) [Mass/volume] in Serum or Plasma VITAMIN B12 BLOOD Lab Routine Memory changes Expected: 09/02/2023, Expires: 12/02/2023 [facility] Work Phone: Immunizations Immunization Date Immunization Notes Care Provider Jena alarcon 06-04-2023 influenza (HD-IIV4) vaccine, age 65+ yr, high dose, quadrivalent, PF (FLUZONE HIGH-DOSE) Frederic Ambrosio MD Work Phone: [facility] 03-31-2022 tetanus toxoid, reduced diphtheria toxoid, and acellular pertussis vaccine, adsorbed Rehana Rooney APRN.CUSTOMER SPECIALIST Work Phone: [facility] 01-06-2022 influenza, high-dose , quadrivalent vaccine (FLUZONE HIGH DOSE QUADRIVALENT) Moon Ferris APRN.CUSTOMER SPECIALIST Work Phone: [facility] Work Phone: 09-23-2022 influenza virus vaccine, unspecified formulation Alen Arroyo MD Work Phone: [facility] 01-13-2015 influenza, injectabl e, quadrivalent, contains preservative Riaz Sandra COATER HAND.CUSTOMER SPECIALIST Work Phone: [facility] 12-29-2013 influenza, seasonal, injectable Riaz Calhounalo COATER HAND.CUSTOMER SPECIALIST Work Phone: [facility] 01-29-2013 influenza, seasonal, injectable Rehana Toribio COATER HAND.CUSTOMER SPECIALIST Work Phone: [facility] 01-29-2013 influenza, seasonal, injectable, preservative free Rehana Toribio COATER HAND.CUSTOMER SPECIALIST Work Phone: [facility] 03-09-2007 tetanus toxoid, reduced diphtheria toxoid, and acellular pertussis vaccine, adsorbed Riaz Pendkarinabury COATER HAND.CUSTOMER SPECIALIST Work Phone: [facility] Work Phone: Payers Date Payer Category Payer Medicare [employer]NA MEDICARE HU[employer] GOLD PLUS [id number] 2019-Present [phone] [place] [id number] [facility] [id number] 2019 Medicare HUMANA MEDICARE [employer]NA GOLD PLUS [id number] 2019-Present [phone] [place] [phone] [facility] [id number] 2019 Private Health Insurance [id number] Social History Date Type Detail Facility Start: [facility]-06-2022 [facility] Work Phone: Start: 07-05-2021 End: 07-20-2022 Alcohol intake Current drinker of alcohol (finding) [facility] Start: 10-08-2012 History SDOH Alcohol Comment very rarely [facility] Start: 1950 Sex Assigned At Not on file [facility] Start: 06-25-2021 End: 01-06-2022 Exposure to SARS-CoV-2 (event) Not sure [facility] Work Phone: Start: 01-06-2022 Tobacco use and exposure Smokeless tobacco non-user [facility] Work Phone: Start: 07-20-2022 History SDOH Physica l Activity DPW 0 [facility] Start: 07-20-2022 History SDOH Stress 3 [facility] Start: 05-10-2022 End: 07-20-2022 History of Social function [facility] Start: 05-10-2022 End: 07-20-2022 Social connection and isolation panel [facility] In a typical week, h ow many times do you talk on the telephone with family, friends, or neighbors? Patient refused [facility] Are you now , , , , never or living with a partner? Refused [facility] Do you feel stress - tense, restless, nervous, or anxious, or unable to sleep at night because your mind is troubled all the time - these days [OSQ] To some extent [facility] (I/We) worried whe er (my/our) food would run out before (I/we) got money to buy more. DK or Refused [facility] Start: 12-01-2022 End: 06-04-2023 Alcohol intake Ex-drinker (finding) [facility] Clinical Notes 08-14-2014 to 06-04-2023 Frederic Ambrosio MD - 06/04/2023 3:46 PM Alen Pang MD - 12/28/2022 11:00 AM Verona Sorensen RN - 12/28/2022 10:36 AM Randa Larsen LPN - 12/01/2022 10:20 AM EDT Note Date & Type Note Facility 06-04-2023 Note HNO ID: [id number] Author: FREDERIC AMBROSIO MD Service: ? Author Type: Physician Type: Progress Notes Filed: 06/05/2023 08:27 Note Text: This note was created using NoteWriter. Subjective Patient presents with: Right hand pain Immunizations: Flu vaccination Adenike Slaughter is a 72 year old female. She's been dealing with trigger finger of the right middle finger for a few months, worse the past 3 weeks. She needed help from spouse to straighten finger out with pain. Aleve was less effective. She did not take alendronate prescribed last year. She also complained of increasing forgetfulness mainly short term memory issues impacting her activities of daily living, for the past year or more. Her was becoming concerned. Review of Systems Constitutional: Negative for fever. Respiratory: Negative for cough. Musculoskeletal: Positive for arthralgias. ACTIVE PROBLEM LIST Irritable Bowel Syndrome Pain in Joint, Lower Leg Lumbago Benign Neoplasm of Colon Hyperlipidemia, Mixed Vitamin D Deficiency Stress Incontinence, Female Insomnia Anxiety and Depression Nonspecific abnormal toxicology (inconsistent) Age-Related Osteoporosis Without Current Pathological Fracture History of Colonic Polyps Memory Changes Social History Tobacco Use Smoking status: Never Smokeless tobacco: Never Vaping Use Vaping Use: Never used Substance Use Topics Alcohol use: Not Currently Drug use: No Current Outpatient Medications Medication Sig naproxen sodium (ALEVE ORAL) Take by mouth. IBUPROFEN ORAL Take by mouth. acetaminophen 650 mg CR tablet Take 650 mg by mouth every 8 hours as needed. predniSONE (DELTASONE) 10 mg tablet TAKE BY MOUTH 4 TABLETS DAILY FOR 2 DAYS, THEN 3 TABLETS DAILY FOR 2 DAYS, THEN 2 TABLETS DAILY FOR 2 DAYS, THEN 1 TABLET DAILY FOR 2 DAYS. alendronate (FOSAMAX) 70 mg tablet Take 1 tablet by mouth one time a week. Take with a full glass of water, on an empty stomach; do NOT lie down for 30minutes. No current facility-administered medications for this visit. Objective BP 132/80 (BP Site: Left Arm, BP Position: Sitting, BP Cuff Size: Large Adult) Pulse 88 Temp 37 ?C (98.6 ?F) (Temporal) Resp 16 Wt 55.8 kg (123 lb) LMP 07/03/2005 BMI 22.50 kg/m? Physical Exam Constitutional: General: She is not in acute distress. Appearance: She is not ill-appearing. Cardiovascular: Heart sounds: Normal heart sounds. Pulmonary: Breath sounds: Normal breath sounds. Musculoskeletal: Right wrist: Normal. Right hand: Tenderness present. Decreased range of motion. Comments: Right middle finger locked in flexion, mild swelling, mild tenderness. Extension not attempted. Neurological: Mental Status: She is alert. Assessment and Plan 1. Trigger middle finger of right hand - ICD9: 727.03, ICD10: M65.331 (primary diagnosis) - CONSULT TO ORTHOPAEDICS - PREDNISONE 10 MG TABLET Discussed medication dosage, usage, goals of therapy, and side effects. 2. Memory changes - ICD9: 780.93, ICD10: R41.3 Evaluate next visit. - COMP METABOLIC PANEL - TSH BLD - VITAMIN B12 BLOOD 3. Need for influenza vaccination - ICD9: V04.81, ICD10: Z23 - INFLUENZA VACCINE, PRSV FREE, AGE 65+ YR, HIGH DOSE, QUADRIVALENT (FLUZONE HIGH-DOSE) 4. Age-related osteoporosis without current pathological fracture - ICD9: 733.01, ICD10: M81.0 - begin tx with alendronate (Fosamax) - Reviewed the need for Calcium and Vitamin D supplements and weight bearing exercise as tolerated - ALENDRONATE 70 MG TABLET Frederic Ambrosio MD [facility] 06-04-2023 History of Present illness Narrative This note was created using [employer] ASriter. Subjective Patient presents with: Right hand pain Immunizations: Flu vaccination Adenike Slaughter is a 72 year old female. She's been dealing with trigger finger of the right middle finger for a few months, worse the past 3 weeks. She needed help from spouse to straighten finger out with pain. Aleve was less effective. She did not take alendronate prescribed last year. She also complained of increasing forgetfulness mainly short term memory issues impacting her activities of daily living, for the past year or more. Her was becoming concerned. Review of Systems Constitutional: Negative for fever. Respiratory: Negative for cough. Musculoskeletal: Positive for arthralgias. ACTIVE PROBLEM LIST Irritable Bowel Syndrome Pain in Joint, Lower Leg Lumbago Benign Neoplasm of Colon Hyperlipidemia, Mixed Vitamin D Deficiency Stress Incontinence, Female Insomnia Anxiety and Depression Nonspecific abnormal toxicology (inconsistent) Age-Related Osteoporosis Without Current Pathological Fracture History of Colonic Polyps Memory Changes Social History Tobacco Use Smoking status: Never Smokeless tobacco: Never Vaping Use Vaping Use: Never used Substance Use Topics Alcohol use: Not Currently Drug use: No Current Outpatient Medications Medication Sig naproxen sodium (ALEVE ORAL) Take by mouth. IBUPROFEN ORAL Take by mouth. acetaminophen 650 mg CR tablet Take 650 mg by mouth every 8 hours as needed. predniSONE (DELTASONE) 10 mg tablet TAKE BY MOUTH 4 TABLETS DAILY FOR 2 DAYS, THEN 3 TABLETS DAILY FOR 2 DAYS, THEN 2 TABLETS DAILY FOR 2 DAYS, THEN 1 TABLET DAILY FOR 2 DAYS. alendronate (FOSAMAX) 70 mg tablet Take 1 tablet by mouth one time a week. Take with a full glass of water, on an empty stomach; do NOT lie down for 30minutes. No current facility-administered medications for this visit. Objective BP 132/80 (BP Site: Left Arm, BP Position: Sitting, BP Cuff Size: Large Adult) Pulse 88 Temp 37 C (98.6 F) (Temporal) Resp 16 Wt 55.8 kg (123 lb) LMP 07/03/2005 BMI 22.50 kg/m Physical Exam Constitutional: General: She is not in acute distress. Appearance: She is not ill-appearing. Cardiovascular: Heart sounds: Normal heart sounds. Pulmonary: Breath sounds: Normal breath sounds. Musculoskeletal: Right wrist: Normal. Right hand: Tenderness present. Decreased range of motion. Comments: Right middle finger locked in flexion, mild swelling, mild tenderness. Extension not attempted. Neurological: Mental Status: She is alert. Assessment and Plan 1. Trigger middle finger of right hand - ICD9: 727.03, ICD10: M65.331 (primary diagnosis) - CONSULT TO ORTHOPAEDICS - PREDNISONE 10 MG TABLET Discussed medication dosage, usage, goals of therapy, and side effects. 2. Memory changes - ICD9: 780.93, ICD10: R41.3 Evaluate next visit. - COMP METABOLIC PANEL - TSH BLD - VITAMIN B12 BLOOD 3. Need for influenza vaccination - ICD9: V04.81, ICD10: Z23 - INFLUENZA VACCINE, PRSV FREE, AGE 65+ YR, HIGH DOSE, QUADRIVALENT (FLUZONE HIGH-DOSE) 4. Age-related osteoporosis without current pathological fracture - ICD9: 733.01, ICD10: M81.0 - begin tx with alendronate (Fosamax) - Reviewed the need for Calcium and Vitamin D supplements and weight bearing exercise as tolerated - ALENDRONATE 70 MG TABLET Frederic Ambrosio MD documented in this encounter [facility] 12-28-2022 Note HNO ID: [id number] Author: [place] Mesa, RN Service: ? Author Type: Registered Nurse Type: Nursing Progress Note Filed: 12/28/2022 10:53 AM Note Text: Abdomen soft non-distended. Will continue to monitor. Passing a moderate amount of air via rectum. [facility] 12-28-2022 History and physical note Images from the original note were not included. HISTORY AND PHYSICAL Adenike Slaughter 1950 REFERRING PHYSICIAN: Moon Ferris APRN.CUSTOMER SPECIALIST CHIEF COMPLAINT: Consult (Screening for colon cancer) [...] letter to requesting physician via US mail. Susan Chen PA-C UPDATED HISTORY AND PHYSICAL EXAMINATION [...] TIME: 10:16 AM documented in this encounter [facility] 12-28-2022 Nurse Note Abdomen soft non-distended. Will continue to monitor. Passing a moderate amount of air via rectum. documented in this encounter [facility] 12-01-2022 Note HNO ID: [id number] Author: Susan Chen PA-C Service: ? Author Type: Physician Rail Bender Type: Progress Notes Filed: 12/01/2022 10:47 AM [...] TRANSORAL DIAGNOSTIC 09/14/1994 EGD LAMINECTOMY W/O FFD 04/17 VERT SEG LUMBAR 04/16/1985 Laminectomy, lumbar L5,S1 [...] Examination is re (more content not included)... [facility] 12-01-2022 Nurse Note REVIEW OF SYSTEMS: General: [...] Randa Otero LPN documented in this encounter [facility] 12-01-2022 History of Present illness Narrative HISTORY AND PHYSICAL Adenike Slaughter 1950 REFERRING PHYSICIAN: Moon Ferrsi APRN.SHOAIB CHIEF COMPLAINT: Consult (Screening for colon cancer) [...] letter to requesting physician via US mail. Susan Chen PA-C documented in this encounter [facility] 11-20-2022 Miscellaneous Notes Detailed message left on patient identified voicemail. She will need seen by general surgery first Moon Ferris APRN.CNP Can we re-file order? No longer showing under active request Patient is requesting a colonoscopy order, please advise. States possible hemorrhoid. Thank you documented in this encounter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 12/02/2023 1 1 [facility] for referral (narrative)* Diagnostic Procedure Only (Routine) - Closed Specialty Diagnoses / Procedures Referred By Contnu t Referred To Contact [facility] Diagnoses Encounter for screening mammogram for malignant neoplasm of breast Procedures BEULHA SCREENING SCREENING MAMMOGRAPHY BI 2-VIEW BREAST INC CAD Frederic Ambrosio MD [address] [place] [address] [facility] [address] [place] [phone] Referral ID Status Reason Start Date Expiration Date V isits Requested Visits Authorized [id number] Closed Auto-Generate d Referral 07/13/2022 08/12/2023 1 1 T [facility] for visit Narrative* Outpatient Procedure (Routine) - Closed Specialty Diagnoses / Procedures Referred By Contac t Referred To Contact [facility] Diagnoses History of colonic polyps Procedures COLONOSCOPY SCREENING COLONOSCOPY FLX DX W/COLLJ SPEC WHEN Susan Pinedo PA-C [address] [place] [address] [facility] [address] [place] [address] Referral ID Status Reason Start Date Expiration Date V isits Requested Visits Authorized [id number] Closed Auto-Generate d Referral 12/01/2022 12/02/2023 1 1 [facility] for visit Narrative* Diagnostic Procedure Only (Routine) - Closed Specialty Diagnoses / Procedures Referred By Contac t Referred To Contact [facility] Diagnoses Encounter for screening mammogram for malignant neoplasm of breast Procedures BEULAH SCREENING SCREENING MAMMOGRAPHY BI 2-VIEW BREAST INC CAD Frederic Ambrosio MD [address] [place] [address] [facility] [address] [place] [address] Referral ID Status Reason Start Date Expiration Date V isits Requested Visits Authorized [id number] Closed Auto-Generate d Referral 07/13/2022 08/12/2023 1 1 [facility] Medications Administered Section Inactive Administered Medications - [...] on Darby 12/28/22 at 1000, Until Darby 9/14/23 at 1046, Preprocedure New Bag/Syringe/Denisa le 12/28/2022 9:48 AM EDT 30 mL/hr 30 mL/hr Arm, Right midazolam 1-5 mg injection (VERSED) 1-5 mg, INTRAVENOUS, DIRECTED, Starting on Darby 12/28/22 at 1030, Until Darby 12/28/22 at 1429, DOSING DIRECTED BY PHYSICIAN FOR PROCEDURAL SEDATION ONLY, Intraprocedure Given 12/28/2022 10:16 AM EDT 3 mg Reason for Referral Specialty Diagnoses / Procedures Referred By Contac t Referred To Contact General Surgery Diagnoses Screen for colon cancer Procedures CONSULT TO GENERAL SURGERY OFFICE/OUTPATIENT [facility] MDM 60-74 MINUTES Moon Ferris APRN.CNP [address] [place] [address] Referral ID Status Reason Start Date Expiration Date Visits Requested Visits Authorized [id number] Pending Review PCP Requested Referral 11/20/2022 11/20/2023 1 1 Specialty Diagnoses / Procedures Referred By Contac t Referred To Contact Orthopedics Diagnoses Trigger middle finger of right hand Procedures CONSULT TO ORTHOPAEDICS OFFICE/OUTPATIENT [facility] MDM 60 MINUTES Frederic Ambrosio MD [address] [place] [address] Referral ID Status Reason Start Date Expiration Date Visits Requested Visits Authorized [id number] Authorized PCP Requested Referral 06/04/2023 06/03/2024 1 1 Summary Purpose Family History No [...] or prosecute any alcohol or drug abuse patient.[facility] the event this information is protected by the Federal Confidentiality of Alcohol and Drug Abuse Patient Records regulations: The Federal rules restrict any use of the information to criminally investigate or prosecute any alcohol or drug abuse patient.[facility] the event this information is protected by the Federal Confidentiality of Alcohol and Drug Abuse Patient Records regulations: The Federal rules restrict any use of the information to criminally investigate or prosecute any alcohol or drug abuse patient.[facility] the event this information is protected by the Federal Confidentiality of Alcohol and Drug Abuse Patient Records regulations: The Federal rules restrict any use of the information to criminally investigate or prosecute any alcohol or drug abuse patient.[facility] the event this information is protected by the Federal Confidentiality of Alcohol and Drug Abuse Patient Records regulations: The Federal rules restrict any use of the information to criminally investigate or prosecute any alcohol or drug abuse patient.[facility] the event this information is protected by the Federal Confidentiality of Alcohol and Drug Abuse Patient Records regulations: The Federal rules restrict any use of the information to criminally investigate or prosecute any alcohol or drug abuse patient.[facility] the event this information is protected by the Federal Confidentiality of Alcohol and Drug Abuse Patient Records regulations: The Federal rules restrict any use of the information to criminally investigate or prosecute any alcohol or drug abuse patient.[facility] the event this information is protected by the Federal Confidentiality of Alcohol and Drug Abuse Patient Records regulations: The Federal rules restrict any use of the information to criminally investigate or prosecute any alcohol or drug abuse patient.[facility] the event this information is protected by the Federal Confidentiality of Alcohol and Drug Abuse Patient Records regulations: The Federal rules restrict any use of the information to criminally investigate or prosecute any alcohol or drug abuse patient.[facility] the event this information is protected by the Federal Confidentiality of Alcohol and Drug Abuse Patient Records regulations: The Federal rules restrict any use of the information to criminally investigate or prosecute any alcohol or drug abuse patient.[facility] the event this information is protected by the Federal Confidentiality of Alcohol and Drug Abuse Patient Records regulations: The Federal rules restrict any use of the information to criminally investigate or prosecute any alcohol or drug abuse patient.[facility] the event this information is protected by the Federal Confidentiality of Alcohol and Drug Abuse Patient Records regulations: The Federal rules restrict any use of the information to criminally investigate or prosecute any alcohol or drug abuse patient.[facility] the event this information is protected by the Federal Confidentiality of Alcohol and Drug Abuse Patient Records regulations: The Federal rules restrict any use of the information to criminally investigate or prosecute any alcohol or drug abuse patient.[facility] the event this information is protected by the Federal Confidentiality of Alcohol and Drug Abuse Patient Records regulations: The Federal rules restrict any use of the information to criminally investigate or prosecute any alcohol or drug abuse patient.[facility] the event this information is protected by the Federal Confidentiality of Alcohol and Drug Abuse Patient Records regulations: The Federal rules restrict any use of the information to criminally investigate or prosecute any alcohol or drug abuse patient.[facility] the event this information is protected by the Federal Confidentiality of Alcohol and Drug Abuse Patient Records regulations: The Federal rules restrict any use of the information to criminally investigate or prosecute any alcohol or drug abuse patient.[facility] the event this information is protected by the Federal Confidentiality of Alcohol and Drug Abuse Patient Records regulations: The Federal rules restrict any use of the information to criminally investigate or prosecute any alcohol or drug abuse patient.[facility] the event this information is protected by the Federal Confidentiality of Alcohol and Drug Abuse Patient Records regulations: The Federal rules restrict any use of the information to criminally investigate or prosecute any alcohol or drug abuse patient.[facility] the event this information is protected by the Federal Confidentiality of Alcohol and Drug Abuse Patient Records regulations: The Federal rules restrict any use of the information to criminally investigate or prosecute any alcohol or drug abuse patient.[facility] the event this information is protected by the Federal Confidentiality of Alcohol and Drug Abuse Patient Records regulations: The Federal rules restrict any use of the information to criminally investigate or prosecute any alcohol or drug abuse patient.[facility] the event this information is protected by the Federal Confidentiality of Alcohol and Drug Abuse Patient Records regulations: The Federal rules restrict any use of the information to criminally investigate or prosecute any alcohol or drug abuse patient.[facility] the event this information is protected by the Federal Confidentiality of Alcohol and Drug Abuse Patient Records regulations: The Federal rules restrict any use of the information to criminally investigate or prosecute any alcohol or drug abuse patient.[facility] Reason for Visit (unrecogniz ed section and content) Reason Onset Date Comments Population Health Navigation Outreach 08/22/2021 [employer] Reason Onset Date Comments Population Health Navigation Outreach 12/26/2021 [employer] Gaps Reason Comments Pre-Op Exam for eye surgery Reason Onset Date Comments Population Health Navigation Outreach 02/28/2022 [employer] Reason Comments Hand Injury L hand smashed in ca r door x this AM Reason Onset Date Comments Population Health Navigation Outreach 04/13/2022 [employer] Reason Onset Date Comments Population Health Navigation Outreach 06/16/2022 [employer] Gaps Reason Comments Right Hip Pain Reason Comments Leg Pain Reason Comments Results results Reason Comments 1 week follow-up Reason Comments Cancelled Request Reason Onset Date Comments Refill Request 11/15/2022 Reason Comments Orders Reason Comments Consult Screening for colon cancer Specialty Diagnoses / Procedures Referred By Contnu t Referred To Contact General Surgery Diagnoses Screen for colon cancer Procedures CONSULT TO GENERAL SURGERY OFFICE/OUTPATIENT NEW HIGH MDM 60-74 MINUTES Older, SHILO Mustafa.CUSTOMER SPECIALIST [address] [place] [address] Referral ID Status Reason Start Date Expiration Date Visits Requested Visits Authorized [id number] Pending Review PCP Requested Referral 11/20/2022 11/20/2023 1 1 Reason Onset Date Comments Right hand pain Immunizations 06/04/2023 Flu vaccination Care Teams (unrecognized sec tion and content) Clam Shucking Machine Tender Relationship Specialty Start Date End Date Frederic Ambrosio MD [address] [facility] [place] [address] PCP - General 06/21/06 Clam Shucking Machine Tender Relationship Specialty Start Date End Date Frederic Ambrosio MD [address] [facility] [place] [address] PCP - General 06/21/06 Clam Shucking Machine Tender Relationship Specialty Start Date End Date Frederic Ambrosio MD [address] [facility] [place] [address] PCP - General 06/21/06 Clam Shucking Machine Tender Relationship Specialty Start Date End Date Frederic Ambrosio MD [facility] [place] [address] PCP - General 06/21/06 Clam Shucking Machine Tender Relationship Specialty Start Date End Date Frederic Ambrosio MD [address] [facility] [place] [address] PCP - General 06/21/06 Clam Shucking Machine Tender Relationship Specialty Start Date End Date Frederic Ambrosio MD [address] [facility] [place] [address] PCP - General 06/21/06 Clam Shucking Machine Tender Relationship Specialty Start Date End Date Frederic Ambrosio MD [address] [facility] [place] [address] PCP - General 06/21/06 Clam Shucking Machine Tender Relationship Specialty Start Date End Date Frederic Ambrosio MD [address] [facility] [place] [address] PCP - General 06/21/06 Clam Shucking Machine Tender Relationship Specialty Start Date End Date Frederic Ambrosio MD [address] [facility] [place] [address] PCP - General 06/21/06 Clam Shucking Machine Tender Relationship Specialty Start Date End Date Frederic Ambrosio MD [address] [place] [address] PCP - General 06/21/06 Clam Shucking Machine Tender Relationship Specialty Start Date End Date Frederic Ambrosio MD [address] [place] [address] PCP - General 06/21/06 Clam Shucking Machine Tender Relationship Specialty Start Date End Date Frederic Ambrosio MD [address] [place] [address] PCP - General 06/21/06 Clam Shucking Machine Tender Relationship Specialty Start Date End Date Frederic Ambrosio MD [address] [place] [address] PCP - General 06/21/06 Clam Shucking Machine Tender Relationship Specialty Start Date End Date Frederic Ambrosio MD [address] [place] [address] PCP - General 06/21/06 Clam Shucking Machine Tender Relationship Specialty Start Date End Date Frederic Ambrosio MD [address] [place] [address] PCP - General 06/21/06 Clam Shucking Machine Tender Relationship Specialty Start Date End Date Frederic Ambrosio MD [address] [place] [address] PCP - General 06/21/06 Clam Shucking Machine Tender Relationship Specialty Start Date End Date Frederic Ambrosio MD [address] [place] [address] PCP - General 06/21/06 INFORMATION SOURCE (unrecogn [...] BE BASED ON THE PRIMARY CLINICAL RECORDS. [facility] [employer] [facility]. provides no warranty or guarantee of the accuracy or completeness of information in this document.
[2023-07-01 16:30] VITALS: BP 124/76; PULSE 68; RESP 16; O2SAT 97
[2023-07-01] MEDS: Lidocaine 1% (20 ml mdv) 20 ML Vial 10 ML INFILT (17:38)
--- NOTE | 2023-07-01 17:43 | NURSING ---
dr to aspirated 40cc clear fluid off rt knee. pt jesse well. everton wrap applied
[2023-07-01 17:44] VITALS: BP 124/76; PULSE 68; RESP 16; TEMP 36.6; O2SAT 97
== END 2023-07-01 17:46 | disposition home or self-care (01) ==
PROVIDERS: Emergency Provider Emergency Medicine; PCP Internal Medicine; Visit Provider Emergency Medicine
DX: M17.11 Unilateral primary osteoarthritis, right knee (principal); M25.461 Effusion, right knee
CPT/HCPCS: 73564; 99283

== ENCOUNTER 2023-10-09 12:08 | Emergency (ER) | payer MEDICARE, SELFPAY ==
[2023-10-09 12:09] VITALS: BP 141/72; PULSE 84; RESP 16; TEMP 36.3; O2SAT 99; BMI 24.6
--- NOTE | 2023-10-09 13:54 | ED.VIS.FALL ---
HPI HPI - Fall History of Present Illness Chief Complaint: Fall Informant: patient Occured/Mechanism Occurred: Yesterday Mechanism/Context: Yes same level fall and Yes trip Pain/Injury Location: Right lateral chest Pain Location: chest Quality of Pain: Sharp Worsened by: Movement, coughing Relieved by: Nothing Narrative Narrative: Patient presents after a fall that occurred yesterday. Patient states she tripped and fell on the sidewalk. Patient states she has pain over her right rib area. Patient describes the pain as sharp. Patient states it is worse with any movement or coughing. Patient denies any head injury or loss of consciousness. Patient denies any paresthesias or weakness. Patient denies any shortness of breath. Patient does admit to a mild cough. Patient denies any sputum production. Patient denies any fevers or chills. Patient does admit to some pain in her neck and back. [facility] Medical History (Updated 10/09/23 @ 15:[address] Sonny Terrazas DO) Osteoporosis Home Medications ?Medication ?Instructions ?Recorded ?Last Taken ?Type ketorolac 0.5 % eye drops 1 drp LEFT EYE Q6H 08/12/21 Unknown History ofloxacin 0.3 % eye drops 1 drp LEFT EYE Q6H 08/12/21 Unknown History cyclobenzaprine 10 mg tablet 10 mg PO TID PRN Muscle Spasm #20 07/15/22 Unknown Rx TABLETS ibuprofen 600 mg tablet 600 mg PO Q8H PRN pain #30 TABLETS 07/15/22 Unknown Rx hydrocodone-acetaminophen 5-325mg 1 tab PO Q6H PRN pain 3 days #10 07/01/23 Unknown Rx 5mg-325mg tabs Allergy/AdvReac Type Severity Reaction Status Date / Time sulfamethoxazole (From Allergy Rash Verified 10/09/23 12:11 ) trimethoprim (From ) Allergy Rash Verified 10/09/23 12:11 meloxicam AdvReac Other Verified 10/09/23 12:11 Surgical History (Updated 10/09/23 @ 14:[address] Sonny Terrazas DO) History of lumbar fusion Social History household members: none Smoking Status: Never smoker substance use type: does not use ROS ROS ED Constitutional Constitutional ED: Denies chills or fever(s) Eyes Eyes: Denies blurry vision or change in vision ENT ENT ED: Denies rhinorrhea or sore throat Cardiovascular Cardiovascular: Reports chest pain; Denies palpitations Respiratory/Chest Respiratory/Chest: Reports cough; Denies dyspnea Gastrointestinal Gastrointestinal: Denies nausea or vomiting Genitourinary Genitourinary ED: Denies dysuria or hematuria Musculoskeletal Musculoskeletal: Reports back pain and neck pain Integumentary Denies abscess or rash Neurologic Neurologic: Denies headache(s) or weakness Allergic/Immunologic Allergic/Immunologic ED: Denies mouth swelling or urticaria EXAM Physical Exam Const Vital Signs: 10/09/23 12:09 10/09/23 12:26 10/09/23 14:08 Temperature 97.4 F L Temperature Source Temporal Pulse Rate 84 71 Respiratory Rate 16 18 Respiratory Effort Normal Respiratory Depth Normal Blood Pressure 141/72 H 140/78 H Blood Pressure Mean 95 98 Pulse Ox 99 97 Oxygen Delivery Method Room Air Room Air Room Air Positive well nourished and well developed General Appearance ED: well developed and NAD HEENT Reports normocephalic atraumatic Neck full ROM and supple Chest Wall Chest Narrative: There is tenderness over the right lateral ribs. There is no edema or ecchymosis. There is no bony crepitance or step-off. There is no subcutaneous emphysema palpated. Resp normal respiratory effort and clear to auscultation bilaterally Cardio regular rate and regular rhythm GI non-tender and non-distended Neuro oriented x3, CN's II-XII intact bilaterally, moves all extremities, no focal motor deficits and no sensory deficits noted Jordan Coma Scale: document GCS findings Spontaneous Obeys Commands Oriented 15 Sensorium / Orientation: alert Motor Exam: strength 5/5 throughout Psych mental status grossly normal MDM MDM MDM Narrative Medical decision making narrative: Differential diagnosis includes rib fracture, contusion, and pneumothorax. X-rays of the right ribs will be obtained to assess for rib fracture or pneumothorax. Radiography Diagnostic Testing: Clinical Impression(s) from Imaging Studies Ribs w/Chest X-Ray 10/09/23 14:05 IMPRESSION: RIBS: Normal x-ray examination of the ribs. CHEST: Normal x-ray examination of the chest. Electronically Signed: Festus Solis MD at 14:30 EDT , X-rays of the right ribs were obtained. There are 4 views. On my independent interpretation, there is no acute fracture noted. There is pneumothorax noted. Radiologist also interpreted the x-rays and agrees. Treatment and Re-Evaluation Narrative: Patient was given a dose of [place] here. Patient was advised of her findings. Patient was instructed to take 10-15 deep breaths every hour while awake to prevent atelectasis and pneumonia. Patient was instructed to continue taking Tylenol or Aleve as needed for pain. Patient was instructed to follow-up with her primary care physician in 5 to 7 days. Patient was instructed to return if worse in any way. Patient understood and was agreeable with the plan. All questions were answered. Discharge Plan Triage Chief Complaint: Fall ED Provider: Sonny Terrazas Dx/Rx/DC Orders Clinical Impression: Chest wall contusion, Fall Instructions: ED Bruise, Rib Prescriptions: No Action ofloxacin 0.3 % drops 1 drp LEFT EYE Q6H ketorolac 0.5 % drops 1 drp LEFT EYE Q6H cyclobenzaprine 10 mg tablet 10 mg PO TID PRN (Reason: Muscle Spasm) Qty: 20 0RF ibuprofen 600 mg tablet 600 mg PO Q8H PRN (Reason: pain) Qty: 30 0RF hydrocodone-acetaminophen 5-325 mg tablet 1 tab PO Q6H PRN (Reason: pain) 3 Days Qty: 10 0RF Primary Care Provider: Frederic Luong Referrals: Frederic Luong MD [Primary Care Provider] - 5-7 Days Print Language: Icelandic Disposition Disposition: Home, Self Care
--- NOTE | 2023-10-09 14:05 | RAD_ITS ---
STUDY: X-RAY - UNILATERAL RIBS ( RIGHT ) WITH CHEST REASON FOR EXAM: Female, 73 years old. Posterior mid right rib pain following a fall. TECHNIQUE - RIBS: 3 view(s) of the ribs. TECHNIQUE - CHEST: Single PA view of the chest. COMPARISON: Comparison is made with prior chest radiograph dated November 14, 2018. FINDINGS - RIBS: Normal visualized ribs without a demonstrated fracture. FINDINGS - CHEST: The lungs are clear and expanded. There is no demonstrated pleural abnormality. Normal size heart. Normal mediastinum and inés. Normal visualized pulmonary arteries. There is atherosclerotic calcification of the aortic arch with tortuosity. There are degenerative changes of the visualized thoracic spine. Normal visualized ribs, clavicles, and shoulders. There is no demonstrated abnormality of the visualized soft tissue structures of the upper abdomen. RAD/Ribs Uni Min 3V w/PA Chest IMPRESSION: RIBS: Normal x-ray examination of the ribs. CHEST: Normal x-ray examination of the chest. Electronically Signed: Festus Solis MD at 14:30 EDT ,
[2023-10-09 14:08] VITALS: BP 140/78; PULSE 71; RESP 18; O2SAT 97
[2023-10-09] MEDS: HYDROcodone Bitartrate/Apap 5/325 Tablet PO (14:09)
== END 2023-10-09 15:46 | disposition home or self-care (01) ==
PROVIDERS: Emergency Provider Emergency Medicine; PCP Internal Medicine; Visit Provider Emergency Medicine
DX: S20.20XA Contusion of thorax, unspecified, initial encounter (principal); M54.2 Cervicalgia; W01.0XXA Fall on same level from slipping, tripping and stumbling without subsequent striking against object, initial encounter; Y92.480 Sidewalk as the place of occurrence of the external cause
CPT/HCPCS: 71101; 99282

== ENCOUNTER 2023-12-30 16:24 | Emergency (ER) | payer MEDICARE, SELFPAY ==
[2023-12-30 16:26] VITALS: BP 130/82; PULSE 90; RESP 18; TEMP 36.6; O2SAT 97; BMI 24.3
[2023-12-30 16:29] VITALS: BP 130/82; PULSE 85; RESP 18; TEMP 36.6; O2SAT 96
--- NOTE | 2023-12-30 17:36 | EDS_ITS ---
HPI <OSCAR Hodgson - Last Filed: 12/30/23 17:42> History of Present Illness Chief Complaint: Dental Narrative Narrative: Patient is a 73-year-old female with history of right lower jaw swelling, right sided tooth pain. Patient states she has had pain for the last week, worsening swelling the last 2 days. She did go to urgent care yesterday, she was placed on amoxicillin. Patient states that the swelling got worse today, the pain is getting worse, she is here for evaluation. She does see [facility] however they will not take her until the swelling goes down. Patient denies any fever chills nausea or vomiting. <Dr. Parmjit Bingham DO - Last Filed: 12/30/23 17:44> Narrative Narrative: Patient is a 73-year-old female with history of right lower jaw swelling, right sided tooth pain. Patient states she has had pain for the last week, worsening swelling the last 2 days. She did go to urgent care yesterday, she was placed on amoxicillin. Patient states that the swelling got worse today, the pain is getting worse, she is here for evaluation. She does see [facility] however they will not take her until the swelling goes down. Patient denies any fever chills nausea or vomiting. Patient denies trismus, difficulty swallowing, drooling, throat tightness or chest tightness. PFSH <OSCAR Hodgson - Last Filed: 12/30/23 17:42> [facility] Medical History (Updated 12/30/23 @ 17:40 by OSCAR Hodgson) Osteoporosis Home Medications ?Medication ?Instructions ?Recorded ?Last Taken ?Type ketorolac 0.5 % eye drops 1 drp LEFT EYE Q6H 08/12/21 Unknown History ofloxacin 0.3 % eye drops 1 drp LEFT EYE Q6H 08/12/21 Unknown History cyclobenzaprine 10 mg tablet 10 mg PO TID PRN Muscle Spasm #20 07/15/22 Unknown Rx TABLETS ibuprofen 600 mg tablet 600 mg PO Q8H PRN pain #30 TABLETS 07/15/22 Unknown Rx hydrocodone-acetaminophen 5-325mg 1 tab PO Q6H PRN pain 3 days #10 07/01/23 Unknown Rx 5mg-325mg tabs clindamycin HCl 150 mg capsule 450 mg (3 x 150 mg) PO TID 7 days 12/30/23 Unknown Rx #63 CAPSULES hydrocodone-acetaminophen 5-325mg 1 tab PO Q6H PRN PRN Pain 3 days 12/30/23 Unknown Rx 5mg-325mg #8 TABLETS Allergy/AdvReac Type Severity Reaction Status Date / Time sulfamethoxazole (From Allergy Rash Verified 12/30/23 16:26 Septra) trimethoprim (From ) Allergy Rash Verified 12/30/23 16:26 meloxicam AdvReac Other Verified 12/30/23 16:26 Surgical History (Updated 10/09/23 @ 14:[address] Sonny Terrazas, DO) History of lumbar fusion Social History household members: none Smoking Status: Never smoker substance use type: does not use ROS <OSCAR Hodgson - Last Filed: 12/30/23 17:42> ROS ED ROS Narrative Constitutional: Negative for fever, chills, weight loss, weakness Eyes: Negative for vision loss, vision change, double vision ENT: Negative for any sore throat, ear pain, congestion. Positive for left lower jaw swelling Cardiovascular: Negative for any chest pain, tightness, palpitations Respiratory: Negative for any cough, sputum production, hemoptysis, dyspnea, dyspnea on exertion, orthopnea Gastrointestinal: Negative for any abdominal pain, nausea, vomiting, diarrhea, constipation, blood in stool, blood in vomit : Negative for any urinary frequency, dysuria, retention, blood in urine Muscle skeletal: Negative for any neck pain, back pain Neurological: Negative for any headache, syncope, dizziness Skin: Negative for any rashes, itching, abrasions, lacerations Psychiatric: Negative for any depression, anxiety, stress, suicidal ideation, homicidal ideation Hematologic: Negative for any excessive bruising, easy bleeding EXAM <OSCAR Hodgson - Last Filed: 12/30/23 17:42> Physical Exam Narrative Exam Narrative: Vital signs reviewed. HEET: Head normocephalic atraumatic, TMs clear bilaterally. Posterior pharynx is clear, moist mucous membranes. Nares clear bilaterally. No evidence of any pj wigs angina, patient has no trismus. Patient does have poor dentition of the lower jaw. There is multiple teeth that are broken, different levels of decay. Neck: Supple with no lymphadenopathy or tenderness. No signs of meningismus. Cardiac: Regular rate and rhythm no murmurs gallops or rubs, equal peripheral pulses bilaterally. Respiratory: Lungs clear to auscultation bilaterally. No chest tenderness. Abdomen: Soft, nontender, nondistended. No abdominal bruit or pulsatile masses. No hepatosplenomegaly Extremities: No peripheral edema, no signs of gross trauma or deformity. Active full range of motion of all extremities. Neuro: Cranial nerves II through XII intact, no focal neurological deficits. Skin: Clean dry and intact with no rash, purpura, petechiae, vesicles or pustules. Backs/flank: No CVA tenderness, no midline spinal tenderness, no deformity. Psych: Normal mood and affect. No SI, HI or acute psychosis. Const Vital Signs: 12/30/23 16:26 12/30/23 16:29 Temperature 97.8 F 97.8 F Temperature Source Temporal Temporal Pulse Rate 90 85 Respiratory Rate 18 18 Blood Pressure 130/82 H 130/82 H Blood Pressure Mean 98 98 Pulse Ox 97 96 Oxygen Delivery Method Room Air Room Air <Dr. Parmjit Bingham DO - Last Filed: 12/30/23 17:44> Physical Exam Const Vital Signs: 12/30/23 16:26 12/30/23 16:29 Temperature 97.8 F 97.8 F Temperature Source Temporal Temporal Pulse Rate 90 85 Respiratory Rate 18 18 Blood Pressure 130/82 H 130/82 H Blood Pressure Mean 98 98 Pulse Ox 97 96 Oxygen Delivery Method Room Air Room Air [facility] <OSCAR Hodgson - Last Filed: 12/30/23 17:42> [facility] Treatment and Re-Evaluation :: Differential diagnosis includes however is not limited to: Dental abscess, irreversible pulpitis,pj wigs angina Patient appears to be in no obvious distress, vital signs are stable, presenting to the emergency department for dental infection. Patient does have swelling to the right lower jaw, multiple broken teeth, dental caries. There is no fluctuance. There is no signs or symptoms of deep tissue infection. Patient will be switched antibiotics, patient replaced on clindamycin as well as a short course of pain medicine. She will continue following up with her [facility]. She is instructed return for any worsening symptoms. Stable for discharge <Dr. Parmjit Bingham DO - Last Filed: 12/30/23 17:44> [facility] Treatment and Re-Evaluation :: Differential diagnosis includes however is not limited to: Dental abscess, irreversible pulpitis,pj wigs angina Patient appears to be in no obvious distress, vital signs are stable, presenting to the emergency department for dental infection. Patient does have swelling to the right lower jaw, multiple broken teeth, dental caries. There is no fluctuance. There is no signs or symptoms of deep tissue infection. Patient will be switched antibiotics, patient replaced on clindamycin as well as a short course of pain medicine. She will continue following up with her [facility]. She is instructed return for any worsening symptoms. Stable for discharge ED attending note: I evaluated the patient in conjunction with the JOSE C. I agree with his/her statements and above findings. I have personally performed a face to face assessment of the patient and have reviewed the JOSE C Note. I performed a substantive portion of the visit including all aspects of the following. I personally saw the patient performed chart review, physical exam, reviewed labs, imaging (if obtained), and formulated a treatment and management plan. Patient was comfortable, nontoxic, had no trismus, no submandibular edema, no di fficulty controlling secretions, no drooling, no distress, breathing comfortably. No obvious focus of drainable abscess. Will give antibiotics and close dental follow-up. Strict return precautions were discussed. This note was generated with [employer] dictation software. It may contain incorrect words, spelling, and punctuation that were not noted in review of the chart prior to signing. Discharge Plan Triage Chief Complaint: Dental ED Midlevel Provider: Tay Pressley ED Provider: Parmjit Bingham Dx/Rx/DC Orders Clinical Impression: Abscess, dental Instructions: Dental Abscess, ED Dental Abscess Prescriptions: New clindamycin HCl 150 mg capsule 450 mg PO TID 7 Days Qty: 63 0RF hydrocodone-acetaminophen 5-325 mg tablet 1 tab PO Q6H PRN PRN (Reason: Pain) 3 Days Qty: 8 0RF No Action ofloxacin 0.3 % drops 1 drp LEFT EYE Q6H ketorolac 0.5 % drops 1 drp LEFT EYE Q6H cyclobenzaprine 10 mg tablet 10 mg PO TID PRN (Reason: Muscle Spasm) Qty: 20 0RF ibuprofen 600 mg tablet 600 mg PO Q8H PRN (Reason: pain) Qty: 30 0RF hydrocodone-acetaminophen 5-325 mg tablet 1 tab PO Q6H PRN (Reason: pain) 3 Days Qty: 10 0RF Primary Care Provider: Frederic Luong Referrals: Frederic Luong MD [Primary Care Provider] - Activity Restrictions/Additional Instructions: Take the antibiotics as prescribed. You need to follow-up with a dentist Print Language: Sri Lankan Disposition Disposition: Home, Self Care
[2023-12-30] MEDS: Clindamycin HCl 150 MG Capsule 450 MG PO (17:49)
== END 2023-12-30 17:52 | disposition home or self-care (01) ==
PROVIDERS: Emergency Provider Emergency Medicine; PCP Internal Medicine; Visit Provider Emergency Medicine
DX: K04.7 Periapical abscess without sinus (principal); Z98.1 Arthrodesis status
CPT/HCPCS: 99282

== ENCOUNTER 2024-03-20 11:50 | Emergency (ER) | payer MEDICARE, SELFPAY ==
[2024-03-20 11:51] VITALS: BP 163/70; PULSE 78; RESP 16; TEMP 35.9; O2SAT 100; BMI 27.3
--- NOTE | 2024-03-20 12:08 | CT_ITS ---
STUDY: CT BRAIN WITHOUT CONTRAST REASON FOR EXAM: Female, 73 years old. Injury due to a fall. RADIATION DOSAGE (If Supplied By Facility): CTDIvol = ( 47.06 ) mGy, DLP = ( 855.03 ) mGycm TECHNIQUE: Transaxial CT imaging of the brain was performed without administration of intravenous contrast material. Individualized dose optimization techniques were used for this CT. COMPARISON: Comparison is made with prior study dated November 12, 2018. FINDINGS: Normal soft tissue structures. Normal calvarium. There is mild cerebral atrophy with widening of the extra-axial spaces and ventricular dilatation. Normal white matter tracts of the cerebral hemispheres. Normal basal ganglia and thalami. Normal brainstem. Normal cerebellum. There is no intracranial hemorrhage. There are no findings of an acute ischemic infarction. Atherosclerotic plaque formation of the cavernous portions of the internal carotid arteries bilaterally. Normal visualized paranasal sinuses. CT/Brain/Head without Contrast IMPRESSION: Chronic involutional changes of the brain. Electronically Signed: Festus Solis MD at 14:03 EST ,
--- NOTE | 2024-03-20 12:08 | CT_ITS ---
STUDY: CT CERVICAL SPINE WITHOUT CONTRAST REASON FOR EXAM: Female, 73 years old. Neck pain following a fall. RADIATION DOSAGE (If Supplied By Facility): CTDIvol = ( 18.03 ) mGy, DLP = ( 268.48 ) mGycm TECHNIQUE: High resolution transaxial imaging was performed without contrast material. Sagittal and coronal images were reconstructed. Individualized dose optimization techniques were used for this CT. COMPARISON: None FINDINGS: Normal craniovertebral junction. Normal anterior atlantoaxial articulation. Normal odontoid process. There is straightening of the normal cervical lordosis. Normal vertebral bodies and posterior osseous elements. C2-3: Normal endplates. Normal disc height and morphology. Normal central canal and intervertebral neuroforamina. C3-4: Posterior central spondylosis causing deformity of the anterior aspect of the thecal sac and minimal narrowing of the AP diameter of the canal. C4-5: Marked degree of disc space narrowing. Spondylosis. Uncovertebral arthrosis. Mild degree of bilateral neural foraminal stenosis. C5-6: Marked in degree of disc space narrowing. Spondylosis. Uncovertebral arthrosis. Bilateral neural foraminal stenosis worse on the left side. C6-7: Normal endplates. Normal disc height and morphology. Normal central canal and intervertebral neuroforamina. C7-T1: Normal endplates. Normal disc height and morphology. Normal central canal and intervertebral neuroforamina. Normal visualized soft tissue structures. CT/Spine Cervical without Contras IMPRESSION: Multilevel degenerative changes, as described above. Electronically Signed: Festus Solis MD at 14:00 EST ,
--- NOTE | 2024-03-20 12:08 | CT_ITS ---
STUDY: CT CHEST WITH CONTRAST REASON FOR EXAM: Female, 73 years old. Fall left rib pain RADIATION DOSAGE (If Supplied By Facility): CTDIvol = ( 13.74 ) mGy, DLP = ( 360.17 ) mGycm TECHNIQUE: Transaxial imaging was performed following intravenous administration of IV 100mL Isovue-300. Multiplanar coronal and sagittal images were reformatted. Individualized dose optimization techniques were used for this CT. COMPARISON: No relevant priors. FINDINGS: CHEST Mild degree of increased markings at the lung bases suggestive of either mild scarring and/or basilar atelectasis. There is a 2 cm x 1.8 cm bulla in the posterior medial segment of the right lower lobe. There is no demonstrated pleural abnormality. Normal heart and pericardium. No coronary calcification is seen. Normal mediastinum. Normal hilar regions. Normal unenhanced pulmonary arteries. There is atherosclerotic calcification of the aortic arch. There are multi-level degenerative changes of the thoracic spine. Increased kyphosis. Calcified granuloma in the posterior aspect of the dome of the right lobe of the liver. CT/Chest WITH Contrast IMPRESSION: Findings suggestive of mild degree of basilar atelectasis and/or scarring and bullous formation in the right lower lobe as described. Electronically Signed: Festus Solis MD at 13:57 EST ,
--- NOTE | 2024-03-20 12:08 | EKG12_ITS ---
Test Reason : Blood Pressure : */* mmHG Vent. Rate : 65 BPM Atrial Rate : 65 BPM P-R Int : 144 ms QRS Dur : 76 ms QT Int : 398 ms P-R-T Axes : 63 2 -1 degrees QTcB Int : 413 ms Normal sinus rhythm ST & T wave abnormality, consider anterior ischemia Abnormal ECG Confirmed by Jacinto Sinha ([id number]), field map editor BARTOLO CORMIER ([id number]) on 03/21/2024 10:45:46 AM Referred By: ZEN Confirmed By: aJcinto Sinha
--- NOTE | 2024-03-20 12:13 | EDS_ITS ---
HPI History of Present Illness Chief Complaint: Fall Narrative Narrative: Patient is a 73-year-old female with past medical history of osteoporosis who presents to the emergency department with a chief complaint of fall. Patient states this morning around 7:00 she bent over to pick something up and lost her balance landing on her left side. States that she has had worsening pain in her left ribs therefore she came here for the valuation management. Patient notes that she tried to take ibuprofen however this was not helping therefore she came here for further evaluation and management. Patient states that she did not have any lightheadedness, dizziness, shortness of breath, chest pain prior to the fall. States that she did not pass out she did not lose consciousness she remembers entire thing. Patient denies any history of blood thinning medications. [facility] Medical History Osteoporosis Home Medications ?Medication ?Instructions ?Recorded ?Last Taken ?Type ketorolac 0.5 % eye drops 1 drp LEFT EYE Q6H 08/12/21 Unknown History ofloxacin 0.3 % eye drops 1 drp LEFT EYE Q6H 08/12/21 Unknown History cyclobenzaprine 10 mg tablet 10 mg PO TID PRN Muscle Spasm #20 07/15/22 Unknown Rx TABLETS ibuprofen 600 mg tablet 600 mg PO Q8H PRN pain #30 TABLETS 07/15/22 Unknown Rx hydrocodone-acetaminophen 5-325mg 1 tab PO Q6H PRN pain 3 days #10 07/01/23 Unknown Rx 5mg-325mg tabs clindamycin HCl 150 mg capsule 450 mg (3 x 150 mg) PO TID 7 days 12/30/23 Unknown Rx #63 CAPSULES hydrocodone-acetaminophen 5-325mg 1 tab PO Q6H PRN PRN Pain 3 days 12/30/23 Unknown Rx 5mg-325mg #8 TABLETS cyclobenzaprine 5 mg tablet 5 mg PO TID PRN muscle spasm 4 03/20/24 Unknown Rx days #12 tabs lidocaine 5 % topical patch 1 patch topical DAILY #15 ea 03/20/24 Unknown Rx (Lidoderm) Allergy/AdvReac Type Severity Reaction Status Date / Time sulfamethoxazole (From Allergy Rash Verified 03/20/24 11:54 Sept) trimethoprim (From ) Allergy Rash Verified 03/20/24 11:54 meloxicam AdvReac Other Verified 03/20/24 11:54 Surgical History History of lumbar fusion Social History household members: none Smoking Status: Never smoker substance use type: does not use ROS ROS ED ROS Narrative Constitutional: Denies any fevers, chills, headaches, lightness, dizziness Eyes: Denies change in vision double vision blurry vision Cardiovascular: Denies chest pain or palpitations Respiratory: Denies coughing wheezing shortness of breath Abdomen: Denies abdominal pain nausea vomit diarrhea : Denies any urinary symptoms Neurological: Denies numbness, weakness, tingling Musculoskeletal: Complains of left rib pain as noted above Skin: Denies rashes or lesions EXAM Physical Exam Narrative Exam Narrative: General: Patient lying in bed rest comfortably did not appear to be in acute distress Head: Atraumatic, normocephalic Eyes: PERRL bilateral, EOMI bilateral no conjunctival injection noted Neck: Soft, supple, trachea midline, no tenderness palpation the midline of the cervical spine Cardiovascular: Regular rate and rhythm no murmurs gallops rubs noted Respiratory: Clear to auscultation bilaterally no rales rhonchi or wheezes noted Abdomen: Soft, nondistended, nontender to palpation, bowel sounds present x 4 Musculoskeletal: Patient has tenderness palpation over the left rib cage, no tenderness palpation the midline of the thoracolumbar spine no step-offs or deformities noted. Patient states that when she attempts to move her left shoulder her ribs are painful. All other bony prominences palpated and joints taken through full range of motion no pain elicited Extremities: +5/5 strength noted in the bilateral upper and lower extremities, radial pulses +2/4 in the bilateral upper extremities, no pedal edema on exam Neurological: Patient following commands knew that she was at [facility] year is 2023 Skin: Warm, dry, intact no rashes or lesions noted Const Vital Signs: 03/20/24 11:51 03/20/24 12:50 03/20/24 13:51 Temperature 96.7 F L Temperature Source Temporal Pulse Rate 78 65 Respiratory Rate 16 16 Respiratory Effort Normal Non-Labored Respiratory Depth Normal Respiratory Pattern Normal Blood Pressure 163/70 H 113/79 Blood Pressure Mean 101 90 Pulse Ox 100 96 98 Oxygen Delivery Method Room Air Room Air Room Air MDM MDM MDM Narrative Medical decision making narrative: Patient is a 73-year-old female who presents to the emerged part with a chief complaint of left rib pain after a mechanical fall. Patient will have a workup performed here on the differential diagnosis includes but limited to pneumothorax, rib fractures, proximal humerus fracture. Once workup is obtained reviewed she will be reevaluated. Patient is requesting a pain pill which will be ordered [place] and Zofran. Patient's BMP reviewed showed a normal sodium 140, potassium was 3.4, creatinine normal at 0.71. Patient's EKG was reviewed and showed sinus rhythm with a rate of 65 bpm she had nonspecific ST changes noted in her lateral leads however when compared to EKG from November 14, 2018 these changes were there and this was largely unchanged if not better and the patient has no chest pain here today. Patient's x-ray of her shoulder reviewed by myself and by radiology showed mild degree of degenerative changes of the A/C joint and glenohumeral joint. Patient CT head and brain without contrast showed chronic involutional changes of the brain. Patient CT cervical spine was reviewed showed multilevel degenerative changes. Patient CT chest was reviewed and showed findings suggest a mild degree of basilar atelectasis and/or scarring and bullous formation in the right lower lobe as described. On reevaluation the patient and she was still having some pain to be given Toradol. Patient will be given prescriptions for Lidoderm patch, and cyclobenzaprine. She is advised to rotate Tylenol and ibuprofen at home. She is encouraged return with worsening symptoms or other concerns. All question concerns answered she was discharged home in stable condition. Lab Data Labs: Laboratory Results - last 24 hr 03/20/24 12:45 Sodium 140 Potassium 3.4 L Chloride 106 Carbon Dioxide 31.0 Anion Gap 3 L BUN 11 Creatinine 0.71 Estim Creat Clear Calc 53.66 Est GFR (MDRD) Af Amer 105 Est GFR (MDRD) Non-Af 87 BUN/Creatinine Ratio 15.6 Glucose 107 H Calcium 9.1 Radiography Diagnostic Testing: Clinical Impression(s) from Imaging Studies Brain CT 03/20/24 12:08 IMPRESSION: Chronic involutional changes of the brain. Electronically Signed: Festus Solis MD at 14:03 EST , Cervical Spine CT 03/20/24 12:08 IMPRESSION: Multilevel degenerative changes, as described above. Electronically Signed: Festus Solis MD at 14:00 EST , Chest CT 03/20/24 12:08 IMPRESSION: Findings suggestive of mild degree of basilar atelectasis and/or scarring and bullous formation in the right lower lobe as described. Electronically Signed: Festus Solis MD at 13:57 EST Reading Location ID and State: [facility] / [place] , Service support , Shoulder X-Ray 03/20/24 13:35 IMPRESSION: Mild degree of degenerative changes of the acromioclavicular joint and glenohumeral joint. Electronically Signed: Festus Solis MD at 14:01 EST Reading Location ID and State: [facility] / [place] , Service support , Discharge Plan Triage Chief Complaint: Fall ED Provider: Yony Portillo Dx/Rx/DC Orders Clinical Impression: Fall Prescriptions: New cyclobenzaprine 5 mg tablet 5 mg PO TID PRN (Reason: muscle spasm) 4 Days Qty: 12 0RF lidocaine [Lidoderm] 5 % adhesive patch,medicated 1 patch topical DAILY Qty: 15 0RF Rx Instructions: leave on most painful area for up to 12 hrs No Action ofloxacin 0.3 % drops 1 drp LEFT EYE Q6H ketorolac 0.5 % drops 1 drp LEFT EYE Q6H cyclobenzaprine 10 mg tablet 10 mg PO TID PRN (Reason: Muscle Spasm) Qty: 20 0RF ibuprofen 600 mg tablet 600 mg PO Q8H PRN (Reason: pain) Qty: 30 0RF hydrocodone-acetaminophen 5-325 mg tablet 1 tab PO Q6H PRN (Reason: pain) 3 Days Qty: 10 0RF clindamycin HCl 150 mg capsule 450 mg PO TID 7 Days Qty: 63 0RF hydrocodone-acetaminophen 5-325 mg tablet 1 tab PO Q6H PRN PRN (Reason: Pain) 3 Days Qty: 8 0RF Primary Care Provider: Frederic Luong Referrals: Frederic Luong MD [Primary Care Provider] - Activity Restrictions/Additional Instructions: Use the cyclobenzaprine/muscle laxer as prescribed. Follow-up with your primary care physician outpatient setting. Use the lidocaine patches as prescribed. Rotate Tylenol and ibuprofen [id number] taking something every 3 hours when rotating the 2. Return with worsening symptoms or other concerns. Print Language: Slovenian Disposition Disposition: Home, Self Care
[2024-03-20] MEDS: HYDROcodone Bitartrate/Apap 5/325 Tablet PO (12:39)
[2024-03-20] MEDS: Ondansetron ODT 4 MG Tablet PO (12:39)
[2024-03-20 12:50] VITALS: O2SAT 96
[2024-03-20 13:10] LABS: Anion Gap 3 (5-15); BUN 11 mg/dL (7-18); BUN/Creat Ratio 15.6 RATIO (10-20); Calcium,Total 9.1 mg/dL (8.5-10.1); Chloride 106 mmol/L (98-107); Creatinine, Serum 0.71 mg/dL (0.55-1.02); EST Glomerular Filtration Rate 87 mL/min (>60); Est Glom Filt Rate - Afr Amer 105 mL/min (>60); Estimated Creatinine Clearance 53.66 ml/min; Glucose 107 mg/dL (74-106); Potassium 3.4 mmol/L (3.5-5.1); Sodium Level 140 mmol/L (136-145)
--- NOTE | 2024-03-20 13:35 | RAD_ITS ---
STUDY: X-RAY - LEFT SHOULDER REASON FOR EXAM: Female, 73 years old. Fall shoulder pain TECHNIQUE: 4 view(s) of the shoulder. COMPARISON: None. FINDINGS: There is mild degenerative arthrosis of the glenohumeral articulation. There is degenerative arthrosis of the acromioclavicular joint without inferior osseous spur formation. Normal acromion. Normal humeral head and visualized proximal humerus. The soft tissue structures are unremarkable. Normal visualized pulmonary apex. RAD/Shoulder min 2 Views IMPRESSION: Mild degree of degenerative changes of the acromioclavicular joint and glenohumeral joint. Electronically Signed: Festus Solis MD at 14:01 EST ,
[2024-03-20 13:51] VITALS: BP 113/79; PULSE 65; RESP 16; O2SAT 98
[2024-03-20] MEDS: Ketorolac 15 MG/ML Vial IV (14:34)
[2024-03-20 15:20] VITALS: BP 116/72; PULSE 80; RESP 16; TEMP 36.9; O2SAT 99
== END 2024-03-20 15:20 | disposition home or self-care (01) ==
PROVIDERS: Emergency Provider Emergency Medicine; PCP Internal Medicine; Visit Provider Emergency Medicine
DX: R07.81 Pleurodynia (principal); M19.012 Primary osteoarthritis, left shoulder; M47.819 Spondylosis without myelopathy or radiculopathy, site unspecified; Z98.1 Arthrodesis status; W19.XXXA Unspecified fall, initial encounter
CPT/HCPCS: 70450; 71260; 72125; 73030; 80048; 93005; 96374; 99284; Q9967; A4216

== ENCOUNTER 2024-10-18 06:02 | Emergency (ER) | payer MEDICARE, SELFPAY ==
[2024-10-18 06:02] VITALS: BP 131/56; PULSE 75; RESP 16; TEMP 36.6; O2SAT 99; BMI 25.0
[2024-10-18 06:05] VITALS: BP 131/56; PULSE 76; RESP 16; TEMP 36.6; O2SAT 100
[2024-10-18] MEDS: HYDROcodone Bitartrate/Apap 5/325 Tablet PO (06:18)
[2024-10-18 06:22] VITALS: BP 123/60; PULSE 68; RESP 16; TEMP 36.6; O2SAT 100
== END 2024-10-18 06:32 | disposition home or self-care (01) ==
LOC: ED 06:31
PROVIDERS: Emergency Provider Emergency Medicine; PCP Internal Medicine; Visit Provider Emergency Medicine
DX: K05.10 Chronic gingivitis, plaque induced (principal); K02.9 Dental caries, unspecified; K11.5 Sialolithiasis; K11.8 Other diseases of salivary glands
CPT/HCPCS: 99283

== ENCOUNTER 2024-12-06 19:43 | Emergency (ER) | payer MEDICARE, SELFPAY ==
[2024-12-06 19:44] VITALS: BP 141/76; PULSE 91; RESP 18; TEMP 36.6; O2SAT 97; BMI 23.6
--- NOTE | 2024-12-06 20:00 | RAD_ITS ---
PROCEDURE: KNEE 4 OR MORE VIEWS 12/06/2024 REASON FOR EXAM: FALL Initial encounter. TECHNIQUE: KNEE 4 OR MORE VIEWS Laterality: Right COMPARISON: Radiograph of 02/07/2021 and 07/01/2023 FINDINGS: Bones: On the lateral view of the knee, new lucency is seen through the patella which is an incomplete fracture most likely. Not appreciated on any of the other current views. Not appreciated on the prior exams. Joints: No dislocations Effusion: Moderate right knee effusion Soft tissues: Chondrocalcinosis of menisci. Cartilage loss of the lateral compartment of the femorotibial joint bleeding subchondral sclerosis. Modified outer bridge four. Other: RAD/Knee 4 or More Views IMPRESSION: Incomplete patellar fracture suspected. Moderate osteoarthritis. Moderate joint effusion. Reading Location: [facility]
--- NOTE | 2024-12-06 21:02 | EDS_ITS ---
HPI HPI - Fall History of Present Illness Chief Complaint: Fall Narrative Narrative: 74-year-old male presents with injury to her head and neck into her right knee when she was getting out of her car. She states she was going to drug [employer], tripped and fell as she was getting out of her car and landed face first onto the pavement. She hit her knee on the right as well. She never mated into drug [employer]. She complains of right knee pain and swelling as well as abrasions to her face. She does not take blood thinners but her daughter states that she bleeds easily. She believes that her tetanus immunization is current, less than 5 years. [facility] Medical History Osteoporosis Home Medications ?Medication ?Instructions ?Recorded ?Last Taken ?Type ketorolac 0.5 % eye drops 1 drp LEFT EYE Q6H 08/12/21 Unknown History ofloxacin 0.3 % eye drops 1 drp LEFT EYE Q6H 08/12/21 Unknown History cyclobenzaprine 10 mg tablet 10 mg PO TID PRN Muscle S pasm #20 07/15/22 Unknown Rx TABLETS ibuprofen 600 mg tablet 600 mg PO Q8H PRN pain #30 T ABLETS 07/15/22 Unknown Rx hydrocodone-acetaminophen 5-325mg 1 tab PO Q6H PRN el n 3 days #10 07/01/23 Unknown Rx 5mg-325mg tabs clindamycin HCl 150 mg capsule 450 mg (3 x 150 mg) PO TID 7 days 12/30/23 Unkn own Rx #63 CAPSULES hydrocodone-acetaminophen 5-325mg 1 tab PO Q6H PRN PRN Pain 3 days 12/30/23 Unknown Rx 5mg-325mg #8 TABLETS cyclobenzaprine 5 mg tablet 5 mg PO TID PRN muscle spa sm 4 03/20/24 Unknown Rx days #12 tabs lidocaine 5 % topical patch 1 patch topical DAILY #15 ea 03/20/24 Unknown Rx (Lidoderm) cephalexin 500 mg capsule 500 mg PO Q6 #28 CAPSULES Unknown Rx hydrocodone-acetaminophen 5-325mg 1 tab PO Q6H PRN PRN Pain 3 days 10/18/24 Unknown Rx 5mg-325mg #10 TABLETS Allergy/AdvReac Type Severity Reaction Status Date / Time sulfamethoxazole (From Allergy Rash Verified 12/06/24 19:44 Sept) trimethoprim (From ) Allergy Rash Verified 12/06/24 19:44 meloxicam AdvReac Other Verified 12/06/24 19:44 Surgical History History of lumbar fusion Social History household members: spouse and none Smoking Status: Never smoker substance use type: does not use ROS ROS ED ROS Narrative Review of systems positive for right knee pain and swelling. Abrasions to face. No loss of consciousness. Positive mechanical fall onto pavement. Positive headache and neck pain bilaterally. Left greater than right. EXAM Physical Exam Narrative Exam Narrative: GCS 15. ABCs are intact. Cardiovascular examination reveals a regular rate and rhythm. Lungs are clear to auscultation bilaterally. Abdomen is soft and nontender without guarding or rebound. Positive bowel sounds. Examination of the right knee shows diffuse swelling and mild tenderness of the right patellar area. No crepitance. Multiple abrasions to forehead, nose, and chin. PERRL, EOMI. No nasal septal hematoma. Neck soft and supple without vertebral point tenderness or bony step-off. Mild tenderness palpation bilateral paraspinal musculature left greater than right. Const Vital Signs: 12/06/24 19:44 12/06/24 20:39 Temperature 97.8 F Temperature Source Temporal Pulse Rate 91 Respiratory Rate 18 Respiratory Effort Normal Non-Labored Respiratory Depth Normal Respiratory Pattern Normal Blood Pressure 141/76 H Blood Pressure Mean 97 Pulse Ox 97 Oxygen Delivery Method Room Air MDM MDM MDM Narrative Medical decision making narrative: Differential diagnosis includes but not limited to knee contusion versus fracture. RN ordered x-rays obtained and interpreted by myself independently as incomplete patellar fracture with small positive ffusion. I reviewed the radiology report which confirms my independent interpretation. She states her tetanus immunization is current. Given her closed head injury without loss of consciousness, as well as neck pain, concern is for cervical strain versus fracture and closed head injury versus intracranial hemorrhage. CT of the brain and of the C-spine were obtained as well prior to her receiving any analgesia to make sure that she does not need to be transferred for intracranial hemorrhage. Her CT of the C-spine and brain are currently pending. Patient will be signed out to Dr. Mazin Funk to check the imaging results, and make final disposition on this patient which I anticipate could be discharged as long as her CTs are negative. She will be referred to orthopedics for her patella fracture. Dis position is pending. Patient is in stable condition. History & Record Review Discussion w/independent historian: Patient Radiography Diagnostic Testing: Clinical Impression(s) from Imaging Studies Knee X-Ray 12/06/24 20:00 IMPRESSION: Incomplete patellar fracture suspected. Moderate osteoarthritis. Moderate joint effusion. Reading Location[facility] Discharge Plan Triage Chief Complaint: Fall ED Provider: Chris Tam Dx/Rx/DC Orders Clinical Impression: Patella fracture, Fall, Facial abrasion, Cervical strain Prescriptions: No Action ofloxacin 0.3 % drops 1 drp LEFT EYE Q6H ketorolac 0.5 % drops 1 drp LEFT EYE Q6H cyclobenzaprine 10 mg tablet 10 mg PO TID PRN (Reason: Muscle Spasm) Qty: 20 0RF ibuprofen 600 mg tablet 600 mg PO Q8H PRN (Reason: pain) Qty: 30 0RF hydrocodone-acetaminophen 5-325 mg tablet 1 tab PO Q6H PRN (Reason: pain) 3 Days Qty: 10 0RF clindamycin HCl 150 mg capsule 450 mg PO TID 7 Days Qty: 63 0RF hydrocodone-acetaminophen 5-325 mg tablet 1 tab PO Q6H PRN PRN (Reason: Pain) 3 Days Qty: 8 0RF cyclobenzaprine 5 mg tablet 5 mg PO TID PRN (Reason: muscle spasm) 4 Days Qty: 12 0RF lidocaine [Lidoderm] 5 % adhesive patch,medicated 1 patch topical DAILY Qty: 15 0RF Rx Instructions: leave on most painful area for up to 12 hrs hydrocodone-acetaminophen 5-325 mg tablet 1 tab PO Q6H PRN PRN (Reason: Pain) 3 Days Qty: 10 0RF cephalexin 500 mg capsule 500 mg PO Q6 Qty: 28 0RF Primary Care Provider: Frederic Luong Referrals: Frederic Luong MD [Primary Care Provider] - Print Language: [place]
--- NOTE | 2024-12-06 21:02 | CT_ITS ---
PROCEDURE: SPINE CERVICAL WITHOUT CONTRAS 12/06/2024 REASON FOR EXAM: TRAUMA, PAIN TECHNIQUE: SPINE CERVICAL WITHOUT CONTRAS Coronal and Sagittal reconstruction series were provided. One or more dose reduction techniques were used (e.g., Automated exposure control, adjustment of the mA and/or kV according to patient size, use of iterative reconstruction technique. RADIATION DOSE SUMMARY: CTDlvol: 58 mGy DLP: 1053 mGycm FINDINGS: Normal cervical alignment. Normal vertebral body height. Disc space narrowing at C4-5 and C5-6 primarily. No fracture. Normal odontoid process. Disc space narrowing at C4-5. Left- sided foraminal narrowing at C5-6. Spinous processes intact. No spinous process deformity. No soft tissue mass CT/Spine Cervical without Contras IMPRESSION: Degenerative changes without fracture Reading Location[facility]
--- NOTE | 2024-12-06 21:02 | CT_ITS ---
PROCEDURE: BRAIN/HEAD WITHOUT CONTRAST 12/06/2024 REASON FOR EXAM: TRAUMA Fell on cement. Abrasions to face and headache. Initial encounter. TECHNIQUE: BRAIN/HEAD WITHOUT CONTRAST Coronal and Sagittal reconstruction series were provided. One or more dose reduction techniques were used (e.g., Automated exposure control, adjustment of the mA and/or kV according to patient size, use of iterative reconstruction technique. RADIATION DOSE SUMMARY: CTDlvol: 44.99 mGy DLP: 812.98 mGycm COMPARISON: CT brain March 20, 2024 FINDINGS: Brain: No intra-axial or extra-axial hemorrhage. No mass, mass effect or midline shift. No acute ischemia infarct identified CSF Spaces: Ventricles and sulci are age-appropriate Sinuses/Mastoids: Single anterior ethmoid air cell opacified. Mastoid air cells and paranasal sinuses are predominantly clear otherwise. No sinus fracture identified. Bones: No skull fracture. Small subcutaneous soft tissue hematoma in the mid forehead. No underlying fracture. CT/Brain/Head without Contrast IMPRESSION: Superficial forehead injury. No acute process in the brain. Reading Location[facility]
--- OUTSIDE RECORDS SUMMARY | 2024-12-06 21:19 | XMS RPT_ITS | CCD ---
Author Organization [facility] Care Team Providers Care Soil Conservation Technician Name Role Phone Frederic Luong MD Primary Care Provider Dr. Frederic Luong Primary Care Provider Dr. Frederic Luong Referring Provider Dr. Kvng Tejada Attending Provider Frederic Luong MD Primary Care Provider Frederic Luong MD Primary Care Provider PJ RYAN Admitting Unavailable PJ RYAN Attending Unavailable FREDERIC LUONG Primary Care Unavailable Juan José AUTOMATIC MACHINES SUPERVISOR.Moon CRAMER Unavailable Dr. Frederic Luong MD Primary Care Provider Dr. Reece Valera MD Emergency Provider FREDERIC LUONG Primary Care Unavailable FREDERIC LUONG Attending Unavailable FREDERIC LUONG Primary Care Unavailable MOON FELIZ Attending Unavailable FREDERIC LUONG Primary Care Unavailable FREDERIC LUONG Primary Care Unavailable FREDERIC LUONG Attending Unavailable FREDERIC LUONG Primary Care Unavailable MOON FELIZ Referring Unavailable MOON FELIZ Attending Unavailable FREDERIC LUONG Primary Care Unavailable MOON FELIZ Attending Unavailable FREDERIC LUONG Primary Care Unavailable FREDERIC LUONG Primary Care Unavailable MOON FELIZ Attending Unavailable MOON FELIZ Attending Unavailable FREDERIC LUONG Primary Care Unavailable FREDERIC LUONG Primary Care Unavailable MOON FELIZ Attending Unavailable FREDERIC LUONG Primary Care Unavailable MOON FELIZ Referring Unavailable AG, FREDERIC Carrera Primary Care Unavailable Ag, Frederic Primary Care Unavailable Parmjit Bingham Attending Unavailable Ag, Frederic Primary Care Unavailable Yony Portillo Attending Unavailable Ag, Frederic Primary Care Unavailable Reece Valera Attending Unavailable Allergies Allergy Classification Reported Allergen(s) Allergy Type Date of Onset Reaction(s) Facility (20 sources) meloxicam; Translations: [MELOXICAM] Drug Allergy 3 Other: See Comments [facility] Work Phone: (20 sources) Sulfamethoxazole / Trimethoprim Drug Allergy 8 [facility] Work Phone: (7 sources) Sulfamethoxazole Drug Allergy 2 [facility] (7 sources) Trimethoprim Drug Allergy 2 [facility] (20 sources) Sulfamethoxazole / Trimethoprim; Translations: [SULFAMETHOXAZOLE-TR IMETHOPRIM] Drug Allergy 4 Hives [facility] Work Phone: (1 source) meloxicam Drug Allergy 5 [facility] (1 source) Sulfamethoxazole Drug Allergy 5 [facility] (1 source) Trimethoprim Drug Allergy 5 [facility] Medications Current Medications Medication Drug Class(es) Dates Sig (Normalized) Sig (Original) acetaminophen 325 mg / HYDROcodone bitartrate 5 mg oral tablet (10 sources) Opioid Agonist Start: 10-18-2024 take 1 tablet by mouth every six hours as needed for pain Hydrocodone-Acetamin ophen 5-325 mg tablet Active 1 {tbl} PO EVERY 6 HOURS NEEDED as needed for Pain 10 3 0 October 18, 2024 Sialolithiasis of submandibular gland Sialolithiasis Start: 03-24-2024 End: 03-27-2024 take 1 tablet by mouth every eight hours as needed for pain HYDROcodone-acetaminophen (NORCO) 5-325 mg per tablet Indications: Rib contusion, left, subsequent encounter Take 1 tablet by mouth every 8 hours as needed for pain for up to 3 days. 9 tablet 03/24/2024 03/27/2024 Active Start: 12-30-2023 take 1 tablet by ron th every six hours as needed for pain Hydrocodone-Acetaminophen 5-325 mg table t Active 1 {tbl} PO EVERY 6 HOURS NEEDED as needed for Pain 8 3 December 30, 2023 Dental abscess Periapical abscess without sinus Start: 08-31-2023 End: 09-07-2023 take 1 tablet by mouth every eight hours as needed for pain HYDROcodone-acetaminophen (NORCO) 5-325 mg per tablet Indications: Trigger middle finger of right hand Take 1 tablet by mouth every 8 hours as needed for pain for up to 7 days. 10 tablet 0 08/31/2023 09/07/2023 Active Start: 07-01-2023 End: 09-18-2023 take 1 tablet by mouth every six hours as needed for pain HYDROcodone-acetaminophen (NORCO) 5-325 mg per tablet Indications: Trigger middle finger of right hand , Postoperative stitch abscess Take 1 tablet by mouth every 6 hours as needed for pain for up to 7 days. 15 tablet 0 09/11/2023 09/18/2023 Active Start: 07-01-2023 take 1 tablet by ron th every six hours Hydrocodone-Acetaminophen Active 1 TABLE T PO EVERY 6 HOURS 10 July 01, 2023 Start: 07-17-2022 End: 07-22-2022 take 1 tablet by mouth every eight hours as needed for pain HYDROcodone-acetaminophen (NORCO) 5-325 mg per tablet Indications: Acute leg pain, right Take 1 tablet by mouth every 8 hours as needed for pain for up to 5 days. 15 tablet 0 07/17/2022 07/22/2022 Active Comment on above: Take 1 tablet by ron th every 8 hours as needed for pain for up to 5 days. alendronic acid 70 mg oral tablet (20 sources) Bisphosphonate Start: 09-05-19 End: 04-30-19 take 1 tablet by mouth every week alendronate (FOSAMAX) 70 mg tablet Indications: Age-related osteoporosis without current pathological fracture Take 1 tablet by mouth one time a week. Take with a full glass of water, on an empty stomach; do NOT lie down for 30minutes. 12 tablet 3 04/30/2024 Active Comment on above: Take 1 tablet by ron one time a week. Take with a full glass of water, on an empty stomach; do NOT lie down for 30minutes. amitriptyline hydrochloride 10 mg oral tablet (3 sources) Tricyclic Antidepressant Start: 07-31-19 25 take 1 tablet by mouth every twenty-four hours as needed amitriptyline (ELAVIL) 10 mg tablet Take 1 tablet by mouth at bedtime as needed for sedation. 30 tablet 07/30/2024 Active amoxicillin 875 mg oral tablet (1 source) Penicillin-class Antibacterial Start: 12-29-19 End: 01-05-20 take 1 tablet by mouth twice daily amoxicillin (AMOXIL) 875 mg tablet Indications: Pain, dental Take 1 tablet by mouth two times a day for 7 days. 14 tablet 12/29/2023 01/05/2024 Active atorvastatin 20 mg oral tablet (5 sources) HMG-CoA Reductase Inhibitor Start: 05-28-19 take 1 tablet by mouth once daily atorvastatin (LIPITOR) 20 mg tablet Take 1 tablet by mouth once daily. 90 tablet 3 05/28/2024 Active cephalexin 500 mg oral capsule (3 sources) Cephalosporin Antibacterial Start: 10-19-19 take 1 capsule by mouth every six hours Cephalexin 500 mg capsule Active 500 mg PO EVERY 6 HOURS 0 October 18, 2024 12:00am Start: 09-07-2023 End: 09-12-2023 take 1 capsule by mouth four times daily cephALEXin (KEFLEX) 250 mg capsule Indications: Trigger middle finger of right hand Take 1 capsule by mouth four times daily for 5 days. 20 capsule 0 09/07/2023 09/12/2023 Active clindamycin 150 mg oral capsule (1 source) Lincosamide Antibacterial Start: 12-30-2023 take 3 capsules by mouth three times daily Clindamycin Hcl 150 mg capsule Active 450 mg PO THREE TIMES A DAY 63 7 0 December 30, 2023 12:00am cyclobenzaprine hydrochloride 5 mg oral tablet (16 sources) Muscle Relaxant Start: 03-20-2024 take 1 tablet by mouth three times daily as needed for muscle spasms Cyclobenzaprine 5 mg tablet Active 5 mg PO THREE TIMES A DAY as needed for muscle spasm 12 4 0 March 5th, 2024 1:00am Start: 07-15-2022 End: 06-04-2023 take 1 tablet by mouth three times daily as needed for muscle spasms Cyclobenzaprine 10 mg tablet Active 10 mg PO THREE TIMES A DAY as needed for Muscle Spasm July 15, 2022 12:00am Comment on above: Take 10 mg by mouth three times daily as needed. diclofenac sodium 75 mg delayed release oral tablet (12 sources) Nonsteroidal Anti-inflammatory Drug Start: 03-24-20 End: 04-30-19 take 1 tablet by mouth twice daily for pain diclofenac, EC, (VOLTAREN) 75 mg EC tablet Take 1 tablet by mouth two times a day. For pain/inflammation. Take with food. 30 tablet 04/30/2024 Active ergocalciferol 1.25 mg oral capsule (6 sources) Provitamin D2 Compound Start: 05-28-19 take 1 capsule by mouth two times weekly ergocalciferol 50,000 unit capsule (VITAMIN D2, DRISDOL) Take 1 capsule by mouth two times a week. 24 capsule 05/28/2024 Active Start: 05-26-2024 End: 05-28-2024 take 1 capsule by mouth every week ergocalciferol 50,000 unit capsule (VITAMIN D2, DRISDOL) Take 1 capsule by mouth one time a week. 12 capsule 05/26/2024 05/28/2024 Discontinued ibuprofen 600 mg oral tablet (20 sources) Nonsteroidal Anti-inflammatory Drug Start: 07-15-2022 End: 09-05-2022 take 1 tablet by mouth every eight hours as needed for pain Ibuprofen 600 mg tablet Active 600 mg PO Q8H as needed for pain July 15, 2022 12:00am End: 03-24-2024 IBUPROFEN ORAL Take by mouth . 03/24/2024 Discontinued IBUPROFEN ORAL T antonia by mouth. Active IBUPROFEN ORAL T antonia by mouth. 0 Active Comment on above: Take 600 mg by mouth every 8 hours as needed. Take by mouth. lidocaine 0.05 mg/mg medicated patch (1 source) Antiarrhythmic, Amide Local Anesthetic Start: 2023 Lidocaine (Lidoderm) 5 % adhesive patch,medicated Active 1 NMA TOPICAL DAILY March 20, 2024 1:00am leave on most painful area for up to 12 hrs methylPREDNISolone (2 sources) Corticosteroid Start: 2022 End: 2022 methylPREDNISolone (MEDROL, [place],) 4 mg Dose-Pack Indications: Acute leg pain, right Follow dosing instructions, take with food. 21 tablet 0 07/17/2022 07/23/2022 Active Comment on above: Follow dosing instru ctions, take with food. nitrofurantoin, macrocrystals 25 mg / nitrofurantoin, monohydrate 75 mg oral capsule (5 sources) Nitrofuran Antibacterial Start: 2024 End: 2024 take 1 capsule by mouth twice daily nitrofurantoin monohydrate and macrocrystal (MACROBID) 100 mg capsule Indications: Acute UTI Take 1 capsule by mouth two times a day for 5 days. 10 capsule 04/27/2024 05/02/2024 Active Start: 01-21-2024 End: 01-28-2024 take 1 capsule by mouth twice daily at mealtime nitrofurantoin monohydrate and macrocrystal (MACROBID) 100 mg capsule Take 1 capsule by mouth two times a day with meals for 7 days. 14 capsule 01/21/2024 01/28/2024 Active ofloxacin 3 mg/ml ophthalmic solution (7 sources) Quinolone Antimicrobial Start: 08-12-2021 take 0.3 drop(s) into the eye(s) every six hours Ofloxacin 0.3 % drops Active 1 NMA LEFT EYE EVERY 6 HOURS August 12, 2021 12:00am polyethylene glycol 3350 781845 mg / potassium chloride 2980 mg / sodium bicarbonate 6720 mg / sodium chloride 5840 mg / sodium sulfate 79537 mg powder for oral solution (1 source) Osmotic Laxative Start: 07-13-2022 End: 07-13-2022 peg 3350-electrolytes (COLYTE) 240-22.72-6.72 -5.84 gram solution Indications: Special screening for malignant neoplasms, colon Take 4,000 mL by mouth one time only for 1 dose. 4000 mL 0 07/13/2022 07/13/2022 Active Comment on above: Take 4,000 mL by ron th one time only for 1 dose. prednisoLONE acetate 10 mg/ml ophthalmic suspension (2 sources) Corticosteroid Start: 04-29-2022 Prednisolone Acetate Active 1 DRP LEFT EYE EVERY 6 HOURS August 12, 2021 10:37am Start: 08-12-2021 Prednisolone A cetate Active DRP August 12, 2021 10:37am 24 hr propranolol hydrochloride 60 mg extended release oral capsule (2 sources) beta-Adrenergic Manjinder Start: 08-27-2024 take 1 capsule by mouth once daily propranolol ER (INDERAL LA) 60 mg 24 hr capsule Take 1 capsule by mouth once daily. 30 capsule 1 08/27/2024 Active 24 hr venlafaxine 150 mg extended release oral capsule (5 sources) Serotonin and Norepinephrine Reuptake Inhibitor Start: 07-30-2024 take 1 capsule by mouth once daily venlafaxine ER (EFFEXOR XR) 150 mg 24 hr capsule Take 1 capsule by mouth once daily. 90 capsule 3 07/30/2024 Active Start: 06-25-2024 End: 07-30-2024 take 1 capsule by mouth once daily venlafaxine ER (EFFEXOR XR) 75 mg 24 hr capsule Take 1 capsule by mouth once daily. 30 capsule 1 06/25/2024 07/30/2024 Discontinued Completed/Discontinued Medications Medication Drug Class(es) Dates Sig (Normalized) Sig (Original) 8 hr acetaminophen 650 mg extended release oral tablet (20 sources) End: 03-24-2024 take 1 tablet by mouth every eight hours as needed acetaminophen 650 mg CR tablet Take 650 mg by mouth every 8 hours as needed. 03/24/2024 Discontinued (Changing Therapy/Dosage Form) Comment on above: Take 650 mg by mouth every 8 hours as needed. benzonatate 100 mg oral capsule (17 sources) Non-narcotic Antitussive Start: 05-12-2021 End: 01-06-2022 take 1 capsule by mouth every eight hours as needed benzonatate (TESSALON PERLES) 100 mg capsule Take 1 capsule by mouth three times daily as needed for cough. 12 capsule 07/02/2021 01/06/2022 Discontinued (Course of therapy completed) Comment on above: Take 1 capsule by [facility] three times daily as needed for cough. celecoxib 200 mg oral capsule (6 sources) Nonsteroidal Anti-inflammatory Drug Start: 09-05-2022 End: 06-04-2023 take 1 capsule by mouth twice daily celecoxib (CELEBREX) 200 mg capsule Indications: Right hip pain Take 1 capsule by mouth twice daily. 60 capsule 2 09/05/2022 06/04/2023 Discontinued Comment on above: Take 1 capsule by [facility] [place] twice daily. doxycycline hyclate 100 mg oral tablet (2 sources) Tetracycline-class Drug Start: 07-02-2021 End: 07-09-2021 take 1 tablet by mouth twice daily doxycycline (VIBRA-TABS) 100 mg tablet Take 1 tablet by mouth twice daily for 7 days. 14 tablet 07/02/2021 07/09/2021 Comment on above: Take 1 tablet by [facility] twice daily for 7 days. DULoxetine 40 mg delayed release oral capsule (6 sources) Serotonin and Norepinephrine Reuptake Inhibitor Start: 05-28-2024 End: 06-25-2024 take 1 capsule by mouth once daily DULoxetine (CYMBALTA) 40 mg cpDR Take 1 capsule by mouth once daily. 90 capsule 1 05/28/2024 06/25/2024 Discontinued (Lack of Efficacy) Start: 04-30-2024 End: 05-28-2024 take 1 capsule by mouth once daily DULoxetine (CYMBALTA) 20 mg capsule Take 1 capsule by mouth once daily. 30 capsule 1 04/30/2024 05/28/2024 Discontinued gabapentin 100 mg oral capsule (7 sources) Anti-epileptic Agent Start: 11-17-2022 End: 06-04-2023 take 1 capsule by mouth once daily at bedtime gabapentin (NEURONTIN) 100 mg capsule Indications: Right hip pain Take 1 capsule by mouth daily at bedtime for 60 days. 30 capsule 1 11/17/2022 06/04/2023 Discontinued Start: 09-05-2022 End: 11-15-2022 take 1 capsule by mouth once daily at bedtime gabapentin (NEURONTIN) 100 mg capsule Indications: Right hip pain Take 1 capsule by mouth daily at bedtime for 60 days. 30 capsule 1 09/05/2022 11/15/2022 Discontinued Comment on above: Take 1 capsule by [facility] daily at bedtime for 60 days. 2 ml ketorolac tromethamine 30 mg/ml injection (8 sources) Nonsteroidal Anti-inflammatory Drug, Cyclooxygenase Inhibitor Start: 07-13-2022 End: 07-13-2022 keTORolac 60 mg injection (Toradol) Start: 08-12-2021 Ketorolac 0.5 % drops Active 1 NMA LEFT EYE EVERY 6 HOURS August 12, 2021 12:00am Naproxen (20 sources) Nonsteroidal Anti-inflammatory Drug End: 03-24-2024 naproxen sodium (ALEVE ORAL) Take by mouth. 03/24/2024 Discontinued naproxen sodium (ALEVE ORAL) Take by mouth. Active naproxen sodium (ALEVE ORAL) Take by mouth. 0 Active Comment on above: Take by mouth. predniSONE 10 mg oral tablet (16 sources) Start: 06-04-2023 End: 01-21-2024 take 4 tablets by mouth once daily, then take 3 tablets by mouth once daily, then take 2 tablets by mouth once daily, then take 1 tablet by mouth once daily predniSONE (DELTASONE) 10 mg tablet Indications: Trigger middle finger of right hand TAKE BY MOUTH 4 TABLETS DAILY FOR 2 DAYS, THEN 3 TABLETS DAILY FOR 2 DAYS, THEN 2 TABLETS DAILY FOR 2 DAYS, THEN 1 TABLET DAILY FOR 2 DAYS. 20 tablet 06/04/2023 01/21/2024 Discontinued (Course of therapy completed) Comment on above: TAKE BY MOUTH 4 TABL ETS DAILY FOR 2 DAYS, THEN 3 TABLETS DAILY FOR 2 DAYS, THEN 2 TABLETS DAILY FOR 2 DAYS, THEN 1 TABLET DAILY FOR 2 DAYS. Problems Active Problems Problem Classification Problem Date Documented Da te Episodic/Chronic Abdominal pain (2 sources) Pain in pelvis; Translations: [Pelvic and perineal pain] 01-21-2024 Episodic Adjustment disorders (1 source) Adjustment disorder with mixed anxiety and depressed mood; Translations: [Situational mixed anxiety and depressive disorder] Onset: 05-28-2024 Chronic Anxiety disorders (20 sources) Mixed anxiety and depressive disorder; Translations: [Anxiety disorder, unspecified] Onset: 05-04-2015 Resolved: 03-24-2024 05-04-2015 Chronic Blindness and vision defects (7 sources) Diplopia; Translations: [Diplopia] 01-30-2015 Episodic Complications of surgical procedures or medical care (4 sources) Postoperative complication; Translations: [Postoperative bleeding from mouth] 04-13-2023 Episodic Diseases of mouth; excluding dental (2 sources) Sialoadenitis; Translations: [Sialoadenitis, unspecified] 10-18-2024 Episodic Disorders of lipid metabolism (20 sources) Mixed hyperlipidemia; Translations: [Mixed hyperlipidemia] Onset: 09-29-2011 09-29-2011 Chronic Disorders of teeth and jaw (2 sources) Gingivitis; Translations: [Chronic gingivitis, plaque induced] Onset: 10-23-2024 10-18-2024 Chronic E Codes: Fall (2 sources) Fall; Translations: [Unspecified fall, initial encounter] 10-17-2023 Episodic Fluid and electrolyte disorders (7 sources) Hypokalemia; Translations: [Hypokalemia] 11-16-2018 Episodic Genitourinary symptoms and ill-defined conditions (20 sources) Female stress incontinence; Translations: [Stress incontinence (female) (male)] Onset: 10-21-2013 10-21-2013 Chronic Nutritional deficiencies (20 sources) Vitamin D deficiency; Translations: [Vitamin D deficiency, unspecified] Onset: 09-18-2012 09-18-2012 Chronic Osteoarthritis (9 sources) Osteoarthritis; Translations: [Unspecified osteoarthritis, unspecified site] 08-20-2021 Chronic Osteoporosis (20 sources) Senile osteoporosis; Translations: [Age-related osteoporosis without current pathological fracture] Onset: 08-11-2022 08-11-2022 Chronic Other bone disease and musculoskeletal deformities (7 sources) Osteopenia; Translations: [Other specified disorders of bone density and structure, unspecified site] 08-20-2021 Episodic Other circulatory disease (1 source) Elevated blood pressure; Translations: [Elevated blood-pressure reading, without diagnosis of hypertension] 03-24-2024 Episodic Other connective tissue disease (6 sources) Triggering of digit; Translations: [Trigger finger, right middle finger] 06-04-2023 Episodic Other connective tissue disease (1 source) Trigger finger, right middle finger; Translations: [Trigger middle finger of right hand] Onset: 08-31-2023 Episodic Other injuries and conditions due to external causes (6 sources) Hematoma; Translations: [Other injury of unspecified body region, initial encounter] 02-25-2022 Episodic Other lower respiratory disease (2 sources) Cough; Translations: [Cough] Episodic Other nervous system disorders (14 sources) Sims's palsy; 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] 11-15-2018 Episodic Other nervous system disorders (1 source) Abnormal gait; Translations: [Unspecified abnormalities of gait and mobility] Episodic Other nervous system disorders (1 source) Tremor; Translations: [Tremor, unspecified] 08-27-2024 Episodic Other nervous system disorders (1 source) Tremor, unspecified; Translations: [Tremor] Onset: 08-27-2024 Episodic Other non-traumatic joint disorders (1 source) Pain in right hip joint; Translations: [Pain in right hip] 11-17-2022 Episodic Other non-traumatic joint disorders (2 sources) Effusion of right knee joint; Translations: [Effusion, right knee] 07-01-2023 Episodic Other non-traumatic joint disorders (3 sources) Pain in right knee; Translations: [Acute pain of right knee] 07-01-2023 Episodic Other nutritional; endocrine; and metabolic disorders (7 sources) Hypophosphatemia; Translations: [Other disorders of phosphorus metabolism] 11-16-2018 Chronic Residual codes; unclassified (2 sources) Pain; Translations: [Pain, unspecified] Episodic Residual codes; unclassified (1 source) Procedure not done; Translations: [Procedure and treatment not carried out, unspecified reason] 07-01-2023 Episodic Sprains and strains (7 sources) Strain of knee; Translations: [Strain of unspecified muscle(s) and tendon(s) at lower leg level, right leg, initial encounter] 02-15-2021 Episodic Superficial injury; contusion (8 sources) Contusion of forearm; Translations: [Contusion of right forearm, initial encounter] 02-25-2022 Episodic Urinary tract infections (1 source) Acute urinary tract infection; Translations: [Urinary tract infection, site not specified] 04-27-2024 Episodic Past or Other Problems Problem Classification Problem Date Documented Da te Episodic/Chronic Disorders of teeth and jaw (5 sources) Toothache; Translations: [Other specified disorders of teeth and supporting structures] Onset: 01-22-2024 12-29-2023 Episodic Gastritis and duodenitis (20 sources) Acute gastritis; Translations: [Acute gastritis without bleeding] Onset: 05-10-2007 Resolved: 09-05-2011 09-05-2011 Episodic Genitourinary symptoms and ill-defined conditions (5 sources) Jules hematuria; Translations: [Gross hematuria] Onset: 01-21-2024 01-21-2024 Episodic Headache; including migraine (20 sources) Migraine; Translations: [Migraine, unspecified, not intractable, without status migrainosus] Onset: 01-02-2006 Resolved: 10-21-2013 01-30-2015 Chronic Headache; including migraine (20 sources) Headache; Translations: [Headache] Onset: 11-21-2005 Resolved: 01-02-2006 01-02-2006 Episodic Hemorrhoids (20 sources) Internal hemorrhoids; Translations: [Other hemorrhoids] Onset: 11-22-2007 Resolved: 09-05-2011 09-05-2011 Episodic Immunizations and screening for infectious disease (6 sources) Patient encounter status; Translations: [Encounter for immunization] Onset: 04-30-2024 Episodic Intestinal infection (20 sources) Clostridium difficile diarrhea; Translations: [Enterocolitis due to Clostridium difficile, not specified as recurrent] Onset: 08-14-2014 Resolved: 11-26-2018 11-26-2018 Episodic Other and unspecified benign neoplasm (20 sources) Benign neoplasm of colon; Translations: [Benign neoplasm of colon, unspecified] Onset: 11-22-2007 Resolved: 03-24-2024 04-11-2021 Episodic Other and unspecified benign neoplasm (20 sources) History of polyp of colon; Translations: [Personal history of colonic polyps] Onset: 12-28-2022 Resolved: 03-24-2024 12-01-2022 Episodic Other connective tissue disease (20 sources) Pain in limb; Translations: [Pain in unspecified limb] Onset: 07-09-2008 Resolved: 09-05-2011 09-05-2011 Episodic Other connective tissue disease (20 sources) Calcaneal spur; Translations: [Calcaneal spur, unspecified foot] Onset: 07-09-2008 Resolved: 09-05-2011 09-05-2011 Episodic Other gastrointestinal disorders (20 sources) Irritable bowel syndrome; Translations: [Irritable bowel syndrome without diarrhea] Onset: 11-21-2005 Resolved: 03-24-2024 07-28-2009 Chronic Other gastrointestinal disorders (20 sources) Diarrhea; Translations: [Diarrhea, unspecified] Onset: 05-10-2007 Resolved: 11-26-2018 11-26-2018 Episodic Other lower respiratory disease (1 source) Pleurodynia; Translations: [Pleurodynia] Onset: 04-22-2024 Episodic Other nervous system disorders (20 sources) Carpal tunnel syndrome; Translations: [Carpal tunnel syndrome, unspecified upper limb] Onset: 03-05-2006 Resolved: 09-05-2011 09-05-2011 Chronic Other non-traumatic joint disorders (20 sources) Pain in lower limb; Translations: [Pain in unspecified knee] Onset: 03-05-2006 Resolved: 03-24-2024 07-28-2009 Episodic Other screening for suspected conditions (not mental disorders or infectious disease) (20 sources) Finding related to measurement of toxic substance; Translations: [Abnormal level of other drugs, medicaments and biological substances in specimens from other organs, systems and tissues] Onset: 05-05-2015 Resolved: 03-24-2024 05-05-2015 Episodic Residual codes; unclassified (20 sources) Insomnia; Translations: [Insomnia, unspecified] Onset: 05-04-2015 Resolved: 03-24-2024 05-04-2015 Episodic Residual codes; unclassified (20 sources) Memory impairment; Translations: [Other amnesia] Onset: 06-04-2023 06-04-2023 Episodic Screening and history of mental health and substance abuse codes (2 sources) Encounter for screening for depression; Translations: [Encounter for screening examination for other mental health and behavioral disorders] Onset: 04-30-2024 Episodic Spondylosis; intervertebral disc disorders; other back problems (20 sources) Low back pain; Translations: [Lumbago] Onset: 07-16-2006 Resolved: 03-24-2024 04-11-2021 Episodic Results Test Name Value Interpretation Reference Range Facility Emergency Department Summary on 10-18-2024 Emergency Department Summary [facility] Medical Records Department [address] [place] [id number] Emergency Department Summary 10/18/24 MR#: [id number] Acct: [id number] Name: RENATE INFANTE Rep #: [id number] : 1950 74 From: Reece Valera MD PCP: Dr. Frederic Luong MD Status:PRE ER Location: ED HPI History of Present Illness Chief Complaint: Dental Detail of Chief Complaint: Patient believes he has a dental abscess Informant: patient Onset/Context/Timing Onset: Yesterday Context: Sudden Onset Timing: Continuous Quality: Pain Location: Right lower jaw and submental region Current Severity: Mild Maximum Severity: Severe Worsened by: Eating, palpation opening and closing her mouth Relieved by: - (Nothing) Associated Symptoms Assocated Symptom - Dental: fever and jaw swelling; Negative for face swelling, cold sensitivity or hot sensitivity Narrative Narrative: Patient is a 74-year-old woman. She has poor dentition. She presents because she believes she has a dental infection. She reports temperature up to 101 degrees. She reports difficulty opening closing her mouth. This causes her pain. She also reports swelling under her jaw. She denies history of medic fever, heart murmur mitral valve prolapse. She is on no antihypertensive meds. Prior similar symptoms: Yes Recent Illness/Hospitalizatio n: No PFSH [facility] Medical History Osteoporosis Home Medications ???Medication ???Instructions ???Recorded ???Last Taken ???Type ketorolac 0.5 % eye drops 1 drp LEFT EYE Q6H 08/12/21 Unknow n History ofloxacin 0.3 % eye drops 1 drp LEFT EYE Q6H 08/12/21 Unknow n History cyclobenzaprine 10 mg tablet 10 mg PO TID PRN Muscle Spasm #20 07/15/22 Unknown Rx TABLETS ibuprofen 600 mg tablet 600 mg PO Q8H PRN pain #30 TABLETS 07/15/22 Unknown Rx hydrocodone-acetaminop hen 5-325mg 1 tab PO Q6H PRN pain 3 days #10 07/01/23 Unknown Rx 5mg-325mg tabs clindamycin HCl 150 mg capsule 450 mg (3 x 150 mg) PO TID 7 days 12/30/23 Unknown Rx #63 CAPSULES hydrocodone-acetaminop hen 5-325mg 1 tab PO Q6H PRN PRN Pain 3 days 12/30/23 Unknown Rx 5mg-325mg #8 TABLETS cyclobenzaprine 5 mg tablet 5 mg PO TID PRN muscle spasm 4 09/06 Unknown Rx days #12 tabs lidocaine 5 % topical patch 1 patch topical DAILY #15 ea 03/20 Unknown Rx (Lidoderm) cephalexin 500 mg capsule 500 mg PO Q6 #28 CAPSULES 10/18/24 Unknown Rx hydrocodone-acetaminop hen 5-325mg 1 tab PO Q6H PRN PRN Pain 3 days 10/18/24 Unknown Rx 5mg-325mg #10 TABLETS Allergy/AdvReac Type Severity Reaction Status Date / Time sulfamethoxazole (From Allergy Rash Verified 10/18/24 06:02 Sept) trimethoprim (From ) Allergy Rash Verified 10/18/24 06:02 meloxicam AdvReac Other Verified 10/18/24 06:02 Family History no significant family his Surgical History History of lumbar fusion Social History (Updated 10/18/24 @ 06:[address] Reece Valera MD) household members: spouse and none Smoking Status: Never smoker substance use type: does not use ROS ROS ED Constitutional Constitutional ED: Reports fever(s); Denies chills, subjective or sweats Eyes Eyes: Denies blurry vision or change in vision ENT ENT ED: Reports other Details: HPI narrative ; Denies ear pain, rhinorrhea or sore throat Cardiovascular Cardiovascular: Denies chest pain or palpitations Respiratory/Chest Respiratory/Chest: Denies cough, dyspnea or dyspnea on exertion Gastrointestinal Gastrointestinal: Denies nausea or vomiting Musculoskeletal Musculoskeletal: Reports neck pain Integumentary Denies rash Hematologic/Lymphatic Hematologic/Lymphatic: Denies easy bleeding or easy bruising EXAM Physical Exam Const Vital Signs: 10/18/24 06:02 10/18/24 06:05 Temperature 97.8 F 97.8 F Temperature Source Oral Oral Pulse Rate 75 76 Respiratory Rate 16 16 Blood Pressure 131/56 H 131/56 H Blood Pressure Mean 81 81 Pulse Ox 99 100 Oxygen Delivery Method Room Air Room Air Positive well nourished and well developed General Appearance ED: well developed; Negative for NAD HEENT Reports TM's clear HEENT Narrative: There is swelling submental region. There is swelling under the tongue near the lingular side of the teeth involving the sublingual papilla and the submandibular duct appears abnormal. Negative for trauma or tenderness Face and Sinus: Negative for sinuses nontender Tympanic Membrane ED: Yes TM's clear Mouth ED: Yes lips normal, Yes tongue normal, No salivary gland normal, No mouth trauma, Yes oral and palatal mucosa abnormal and Yes salivary gland abnormal Mouth: lips normal, tongue normal, No salivary gland normal, No mouth trauma, ora (more content not included)... Normal [facility] CNOVon 08-27-2024 CNOV Office Visit (INTMWS ) RENATE INFANTE I ([id number]) 1950 F Date Time Provider Department 08/27/24 6:40 PM MOON FELIZ INTMWS During your visit today, we recorded the following information about you: Pulse Respiration Blood pressure Weight 82/minute 12/minute 132/82 56.6 kg Moon Feliz, AUTOMATIC MACHINES SUPERVISOR.[facility] 08/27/2024 7:14 PM Signed CC: Patient presents with: Follow Up: Depression/insomnia HPI Recording using [employer] software for draft documentation of the visit was discussed with the patient/authorized customer solutions representative; all questions welcomed and answered. Patient/authorized customer solutions representative agreed to proceed Renate is a 73-year-old female presenting for follow-up on medication management. Renate was recently increased to Effexor 150 mg approximately one month ago for anxiety and depression. She reports significant improvement in both conditions, describing them as more manageable and providing her with a quiet space. However, she notes that the medication does not eliminate all stressors, particularly those related to her household environment. She occasionally wishes the medication were stronger but overall is satisfied with its effects. Renate reports the onset of tremors, which began after starting Effexor and have worsened since the dosage increase. The tremors are constant and affect her entire body, including her hands and legs. She denies any internal sensations associated with the tremors, describing them as external shakes. The tremors are noticeable to her and have become a source of embarrassment for her. She denies any prior history of tremors before starting Effexor. Review of Systems Neurological: Negative for dizziness, seizures, syncope, facial asymmetry, speech difficulty, weakness, light-headedness, numbness and headaches. PAST MEDICAL HISTORY Diagnosis Date Acute gastritis without mention of hemorrhage Age-related osteoporosis without current pathological fracture 08/11/2022 Allergic rhinitis, cause unspecified Anemia, unspecified 11/21/2005 Anxiety and depression 05/04/2015 Arthritis Benign neoplasm of colon Carpal tunnel syndrome 03/05/2006 Cervicalgia 1998 Clostridium difficile diarrhea 08/14/2014 Diarrhea Diarrhea Headache(784.0) 11/21/2005 Insomnia 05/04/2015 Internal hemorrhoids without mention of complication Irritable bowel syndrome 11/21/2005 Lumbago 07/16/2006 narcotic contract signed,scanned in and in paper chart 07/28/09. Migraine without aura, without mention of intractable migraine without mention of status migrainosus Nonspecific abnormal toxicology (inconsistent) 05/05/2015 Pain in joint, lower leg 03/05/2006 PAST SURGICAL HISTORY Procedure Laterality Date APPENDECTOMY ARTHROSCOPY KNEE DIAGNOSTIC W/WO SYNOVIAL BX SPX 04/16/1987 Arthroscopy, knee, Dr. Griggs COLONOSCOPY 12/28/2022 repeat in 10 years COLONOSCOPY FLX DX W/COLLJ SPEC WHEN PFRMD 05/17/2003 Colonoscopy, Dr. Disla COLONOSCOPY FLX DX W/COLLJ SPEC WHEN PFRMD 05/23/2013 Colonoscopy COLSC FLX W/RMVL OF TUMOR POLYP LESION SNARE TQ 11/22/2007 EGD TRANSORAL BIOPSY SINGLE/MULTIPLE 05/10/2007 ESOPHAGOGASTRODUODENOS COPY TRANSORAL DIAGNOSTIC 09/14/1994 EGD INCISE FINGER TENDON SHEATH Right 08/31/2023 Right middle trigger finger release LAMINECTOMY W/O FFD 1/2 VERT SEG LUMBAR 04/16/1985 Laminectomy, lumbar L5,S1 disc/fusion LEFT HEART CATH,PERCUTANEOUS 07/15/1996 Cardiac cath, L heart- patient reports as normal LEFT HEART CATH,PERCUTANEOUS 08/15/2011 Cardiac cath, L heart, WNL LIG/TRNSXJ FLP TUBE ABDL/VAG APPR UNI/BI Tubal ligation NEUROPLASTY AND/TRANSPOS MEDIAN NRV CARPAL TUNNE 1999 and 2006 Carpal tunnel decomp, right OPEN REPAIR OF ROTATOR CUFF ACUTE 04/16/1984 Rotator cuff repair PAST SURGICAL HISTORY OF 03/02/2009 Left plantar fasciotomy PAST SURGICAL HISTORY OF Left 08/08/2021 Lens Implant PAST SURGICAL HISTORY OF Right 08/25/2021 Right lens implant TONSILLECTOMY PRIMARY/SECONDARY Tonsillectomy VAGINAL HYSTERECTOMY W/REMOVAL TUBES/OV 04/16/2012 ALLERGIES Meloxicam and Septra [Sulfamethoxazole-Trim ethoprim] MEDICATIONS venlafaxine ER (EFFEXOR XR) 150 mg 24 hr capsule Take 1 capsule by mouth once daily. amitriptyline (ELAVIL) 10 mg tablet Take 1 tablet by mouth at bedtime as needed for sedation. ergocalciferol 50,000 unit capsule (VITAMIN D2, DRISDOL) Take 1 capsule by mouth two times a week. atorvastatin (LIPITOR) 20 mg tablet Take 1 tablet by mouth once daily. alendronate (FOSAMAX) 70 mg tablet Take 1 tablet by mouth one time a week. Take with a full glass of water, on an empty stomach; do NOT lie down for 30minutes. diclofenac, EC, (VOLTAREN) 75 mg EC tablet Take 1 tablet by mouth two times a day. For pain/inflammation. Take with food. propranolol ER (INDERAL LA) 60 mg 24 hr capsule Take 1 capsule by mouth once daily. (more content not included)... Normal [facility] CNOVon 07-30-2024 CNOV Office Visit (INTMWS ) RENATE INFANTE I ([id number]) 1950 F Date Time Provider Department 07/30/24 6:00 PM MOON FELIZ INTMWS During your visit today, we recorded the following information about you: Pulse Respiration Blood pressure Weight 76/minute 14/minute 132/80 56.5 kg Moon Feliz, AUTOMATIC MACHINES SUPERVISOR.EXCELLENCE SPECIALIST 07/30/2024 5:59 PM Signed We discussed your depression and anxiety: - You are currently taking venlafaxine (Effexor) 75 mg daily. Since you have noticed some improvement but it is not lasting, we will increase the dose to 150 mg daily. - You may either finish your current 75 mg capsules or take two 75 mg capsules daily to reach the 150 mg dose until your new prescription is ready. A 90-day supply of the 150 mg dose has been sent to your pharmacy. - Please monitor for any side effects such as dizziness, nausea, or lightheadedness, and let me know if you experience any issues. We discussed your sleep difficulties: - You are having trouble falling asleep and are restless during the night. To help with this, I have prescribed amitriptyline 10 mg, to be taken as needed at bedtime. - You do not need to take this medication every night, but if it does not help or if you experience any issues, please let me know. If needed, we can adjust the dose. Follow-Up: - We will follow up in four weeks to assess how you are doing with the increased venlafaxine dose and the amitriptyline for sleep. - If you experience any new or worsening symptoms before then, please contact me. Moon Feliz, SHILO.EXCELLENCE SPECIALIST 07/30/2024 6:05 PM Signed CC: Patient presents with: Follow Up: 1 month HPI Recording using [employer] software for draft documentation of the visit was discussed with the patient/authorized customer solutions representative; all questions welcomed and answered. Patient/authorized customer solutions representative agreed to proceed Renate is a 73-year-old female presenting for follow-up on antidepressant medication. Renate was previously on duloxetine 40 mg, which was not effective in managing her anxiety and depression. Last month, her medication was switched to venlafaxine (Effexor) 75 mg. She reports that the new medication has helped to reduce her stress levels slightly, stating it takes the edge off, but notes that the effect does not last throughout the day. She denies experiencing any side effects such as dizziness, lightheadedness, or nausea from the venlafaxine. She continues to struggle with anxiety and depression, though she notes that these symptoms have not worsened. Her sleep quality remains poor, averaging no more than 4 hours per night, which she considers a good night. She attributes her insomnia to an inability to fall asleep due to persistent thoughts about tasks she needs to complete. Her has observed that she is very restless when she is sleeping. She has a history of snoring but denies any episodes of apnea. She notes that when she does get a sufficient amount of sleep, she feels well-rested. She denies waking up with headaches and excessive daytime sleepiness. Review of Systems See HPI PAST MEDICAL HISTORY Diagnosis Date Acute gastritis without mention of hemorrhage Age-related osteoporosis without current pathological fracture 08/11/2022 Allergic rhinitis, cause unspecified Anemia, unspecified 11/21/2005 Anxiety and depression 05/04/2015 Arthritis Benign neoplasm of colon Carpal tunnel syndrome 03/05/2006 Cervicalgia 1998 Clostridium difficile diarrhea 08/14/2014 Diarrhea Diarrhea Headache(784.0) 11/21/2005 Insomnia 05/04/2015 Internal hemorrhoids without mention of complication Irritable bowel syndrome 11/21/2005 Lumbago 07/16/2006 narcotic contract signed,scanned in and in paper chart 07/28/09. Migraine without aura, without mention of intractable migraine without mention of status migrainosus Nonspecific abnormal toxicology (inconsistent) 05/05/2015 Pain in joint, lower leg 03/05/2006 PAST SURGICAL HISTORY Procedure Laterality Date APPENDECTOMY ARTHROSCOPY KNEE DIAGNOSTIC W/WO SYNOVIAL BX SPX 04/16/1987 Arthroscopy, knee, Dr. Griggs COLONOSCOPY 12/28/2022 repeat in 10 years COLONOSCOPY FLX DX W/COLLJ SPEC WHEN PFRMD 05/17/2003 Colonoscopy, Dr. Disla COLONOSCOPY FLX DX W/COLLJ SPEC WHEN PFRMD 05/23/2013 Colonoscopy COLSC FLX W/RMVL OF TUMOR POLYP LESION SNARE TQ 11/22/2007 EGD TRANSORAL BIOPSY SINGLE/MULTIPLE 05/10/2007 ESOPHAGOGASTRODUODENOS COPY TRANSORAL DIAGNOSTIC 09/14/1994 EGD INCISE FINGER TENDON SHEATH Right 08/31/2023 Right middle trigger finger release LAMINECTOMY W/O FFD 1/2 VERT SEG LUMBAR 04/16/1985 Laminectomy, lumbar L5,S1 disc/fusion LEFT HEART CATH,PERCUTANEOUS 07/15/1996 Cardiac cath, L heart- patient reports as normal LEFT HEART CATH,PERCUTANEOUS 08/15/2011 Cardiac cath, L heart, WNL LIG/TRNSXJ FLP TUBE ABDL/VAG APPR UNI/BI (more content not included)... Normal [facility] CNOVon 06-25-2024 CNOV Office Visit (INTMWS ) RENATE INFANTE I ([id number]) 1950 F Date Time Provider Department 06/25/24 4:40 PM MOON FELIZ INTMWS During your visit today, we recorded the following information about you: Pulse Respiration Blood pressure Weight 80/minute 12/minute 136/80 54.9 kg Moon Feliz, AUTOMATIC MACHINES SUPERVISOR.EXCELLENCE SPECIALIST 06/25/2024 5:21 PM Signed CC: Patient presents with: Follow Up: 1 month HPI Renate Infante is a 73-year-old female presenting for follow-up on duloxetine management for anxiety and depression. The patient consented to the use of [employer] software for draft documentation of the visit consistent with [facility]?s Notice of Privacy Practices. Anxiety and Depression: - No improvement in anxiety or depression symptoms after increasing duloxetine to 40 mg. - Denies any side effects from duloxetine. - Anxiety and depression symptoms remain pretty bad. - Renate is experiencing significant stress related to caring for a autistic grandson with severe behavioral issues - Reports trouble sleeping; unable to take sleep aids due to caregiving responsibilities. - Denies thoughts of self-harm or harm to others. - Denies time for counseling. Review of Systems See HPI PAST MEDICAL HISTORY Diagnosis Date Acute gastritis without mention of hemorrhage Age-related osteoporosis without current pathological fracture 08/11/2022 Allergic rhinitis, cause unspecified Anemia, unspecified 11/21/2005 Anxiety and depression 05/04/2015 Arthritis Benign neoplasm of colon Carpal tunnel syndrome 03/05/2006 Cervicalgia 1998 Clostridium difficile diarrhea 08/14/2014 Diarrhea Diarrhea Headache(784.0) 11/21/2005 Insomnia 05/04/2015 Internal hemorrhoids without mention of complication Irritable bowel syndrome 11/21/2005 Lumbago 07/16/2006 narcotic contract signed,scanned in and in paper chart 07/28/09. Migraine without aura, without mention of intractable migraine without mention of status migrainosus Nonspecific abnormal toxicology (inconsistent) 05/05/2015 Pain in joint, lower leg 03/05/2006 PAST SURGICAL HISTORY Procedure Laterality Date APPENDECTOMY ARTHROSCOPY KNEE DIAGNOSTIC W/WO SYNOVIAL BX SPX 04/16/1987 Arthroscopy, knee, Dr. Griggs COLONOSCOPY 12/28/2022 repeat in 10 years COLONOSCOPY FLX DX W/COLLJ SPEC WHEN PFRMD 05/17/2003 Colonoscopy, Dr. Disla COLONOSCOPY FLX DX W/COLLJ SPEC WHEN PFRMD 05/23/2013 Colonoscopy COLSC FLX W/RMVL OF TUMOR POLYP LESION SNARE TQ 11/22/2007 EGD TRANSORAL BIOPSY SINGLE/MULTIPLE 05/10/2007 ESOPHAGOGASTRODUODENOS COPY TRANSORAL DIAGNOSTIC 09/14/1994 EGD INCISE FINGER TENDON SHEATH Right 08/31/2023 Right middle trigger finger release LAMINECTOMY W/O FFD 1/2 VERT SEG LUMBAR [...] W/REMOVAL TUBES/OV 04/16/2012 ALLERGIES Meloxicam and Septra [Sulfamethoxazole-Trim ethoprim] MEDICATIONS ergocalciferol 50,000 unit capsule (VITAMIN D2, DRISDOL) Take 1 capsule by mouth two times a week. atorvastatin (LIPITOR) 20 mg tablet Take 1 tablet by mouth once daily. alendronate (FOSAMAX) 70 mg tablet Take 1 tablet by mouth one time a week. Take with a full glass of water, on an empty stomach; do NOT lie down for 30minutes. diclofenac, EC, (VOLTAREN) 75 mg EC tablet Take 1 tablet by mouth two times a day. For pain/inflammation. Take with food. venlafaxine ER (EFFEXOR XR) 75 mg 24 hr capsule Take 1 capsule by mouth once daily. FAMILY HISTORY Problem Relation Age of Onset Hypertension Mother Diabetes Mother Heart Mother Congestive Heart Failure Cataract Mother COPD Father of COPD Coronary Artery Disease Father Heart Father Cataract Sister Cataract Brother Cataract Brother Asthma Brother 2 brothers Cancer Brother metastatic, etiol? Social History Tobacco Use Smoking status: Never Smokeless tobacco: Never Vaping Use Vaping status: Never Used Substance Use Topics Alcohol use: Not Currently Drug use: No BP 136/80 Pulse 80 Resp 12 Wt 54.9 kg (121 lb 0.5 oz) LMP 07/03/2005 SpO2 97% BMI 23.92 kg/m? Physical Exam Vitals reviewed. Constitutional: Appearance: Normal appearance. Neurological: Mental Status: She is alert. (more content not included)... Normal [facility] CNOVon 05-28-2024 CNOV Office Visit (INTMWS ) RENATE INFANTE I ([id number]) 1950 F Date Time Provider Department 05/28/24 4:20 PM MOON FELIZ INTMWS During your visit today, we recorded the following information about you: Pulse Respiration Blood pressure Weight 64/minute 14/minute 136/80 56.3 kg Moon Feliz, AUTOMATIC MACHINES SUPERVISOR.EXCELLENCE SPECIALIST 05/28/2024 4:43 PM Signed CC: Patient presents with: Follow Up: 4 weeks HPI Renate Mesa Naresh is a 73 year old female who presents today for above. Patient was seen one month ago and started on Cymbalta 20 mg daily. Patient reports no improvement in depression and anxiety Side effects: None Denies suicidal thoughts or plan. Review of Systems See HPI PAST MEDICAL HISTORY Diagnosis Date Acute gastritis without mention of hemorrhage Age-related osteoporosis without current pathological fracture 08/11/2022 Allergic rhinitis, cause unspecified Anemia, unspecified 11/21/2005 Anxiety and depression 05/04/2015 Arthritis Benign neoplasm of colon Carpal tunnel syndrome 03/05/2006 Cervicalgia 1998 Clostridium difficile diarrhea 08/14/2014 Diarrhea Diarrhea Headache(784.0) 11/21/2005 Insomnia 05/04/2015 Internal hemorrhoids without mention of complication Irritable bowel syndrome 11/21/2005 Lumbago 07/16/2006 narcotic contract signed,scanned in and in paper chart 07/28/09. Migraine without aura, without mention of intractable migraine without mention of status migrainosus Nonspecific abnormal toxicology (inconsistent) 05/05/2015 Pain in joint, lower leg 03/05/2006 PAST SURGICAL HISTORY Procedure Laterality Date APPENDECTOMY ARTHROSCOPY KNEE DIAGNOSTIC W/WO SYNOVIAL BX SPX 04/16/1987 Arthroscopy, knee, Dr. Griggs COLONOSCOPY 12/28/2022 repeat in 10 years COLONOSCOPY FLX DX W/COLLJ SPEC WHEN PFRMD 05/17/2003 Colonoscopy, Dr. Disla COLONOSCOPY FLX DX W/COLLJ SPEC WHEN PFRMD 05/23/2013 Colonoscopy COLSC FLX W/RMVL OF TUMOR POLYP LESION SNARE TQ 11/22/2007 EGD TRANSORAL BIOPSY SINGLE/MULTIPLE 05/10/2007 ESOPHAGOGASTRODUODENOS COPY TRANSORAL DIAGNOSTIC 09/14/1994 EGD INCISE FINGER TENDON SHEATH Right 08/31/2023 Right middle trigger finger release LAMINECTOMY W/O FFD 04/17 VERT SEG LUMBAR 04/16/1985 Laminectomy, lumbar L5,S1 disc/fusion LEFT HEART CATH,PERCUTANEOUS 07/15/1996 Cardiac cath, L heart- patient reports as normal LEFT HEART CATH,PERCUTANEOUS 08/15/2011 Cardiac cath, L heart, WNL LIG/TRNSXJ FLP TUBE ABDL/VAG APPR UNI/BI Tubal ligation NEUROPLASTY AND/TRANSPOS MEDIAN NRV CARPAL TUNNE 1999 and 2006 Carpal tunnel decomp, right OPEN REPAIR OF ROTATOR CUFF ACUTE 04/16/1984 Rotator cuff repair PAST SURGICAL HISTORY OF 03/02/2009 Left plantar fasciotomy PAST SURGICAL HISTORY OF Left 08/08/2021 Lens Implant PAST SURGICAL HISTORY OF Right 08/25/2021 Right lens implant TONSILLECTOMY PRIMARY/SECONDARY Tonsillectomy VAGINAL HYSTERECTOMY W/REMOVAL TUBES/OV 04/16/2012 ALLERGIES Meloxicam and Septra [Sulfamethoxazole-Trim ethoprim] MEDICATIONS ergocalciferol 50,000 unit capsule (VITAMIN D2, DRISDOL) Take 1 capsule by mouth one time a week. alendronate (FOSAMAX) 70 mg tablet Take 1 tablet by mouth one time a week. Take with a full glass of water, on an empty stomach; do NOT lie down for 30minutes. diclofenac, EC, (VOLTAREN) 75 mg EC tablet Take 1 tablet by mouth two times a day. For pain/inflammation. Take with food. DULoxetine (CYMBALTA) 20 mg capsule Take 1 capsule by mouth once daily. FAMILY HISTORY Problem Relation Age of Onset Hypertension Mother Diabetes Mother Heart Mother Congestive Heart Failure Cataract Mother COPD Father of COPD Coronary Artery Disease Father Heart Father Cataract Sister Cataract Brother Cataract Brother Asthma Brother 2 brothers Cancer Brother metastatic, etiol? Social History Tobacco Use Smoking status: Never Smokeless tobacco: Never Vaping Use Vaping status: Never Used Substance Use Topics Alcohol use: Not Currently Drug use: No BP 136/80 Pulse 64 Resp 14 Wt 56.3 kg (124 lb 1.9 oz) LMP 07/03/2005 SpO2 99% BMI 24.53 kg/m? Physical Exam Vitals reviewed. Constitutional: Appearance: Normal appearance. Neurological: Mental Status: She is alert. Psychiatric: Attention and Perception: Attention normal. Mood and Affect: Affect normal. Mood is anxious. Speech: Speech normal. Behavior: Behavior normal. Thought Content: Thought content normal. DATA REVIEWED: Most recent labs Latest Ref Rng 05/23/2024 Cholesterol, Total <200 mg/dL 220 (H) Triglyceride <150 mg/dL 83 HDL Cholesterol >39 mg/dL 55 Non HDL Cholesterol <130 mg/dL 165 (H) Fasting Time hrs 12 VLDL Cholesterol <30 mg/dL 17 TC:HDL Ratio <5.10 4.00 LDL Cholesterol <100 mg/dL 148 (H) LDL:HDL Ratio <2.54 2.69 (H) Vitamin D 25 Hydroxy 31.0 - 80.0 ng/mL 11.4 (L) Legend: (H) High (L (more content not included)... Normal [facility] 25(OH)D3 [facility] 2024 25-hydroxyvitamin D3 [Mass/Vol] 11.4 ng/mL Low 31.0-80.0 [facility] Comment on above: Order Comment: Speci men Type: BLOOD SPECIMENOrdering Facility: [facility] Address: [address] [place] [id number] Result Comment: Clas sification of 25 [place] Vitamin D status: Deficiency/Insufficiency: < or = 30 ng/ml. Sufficiency/Optimal Levels: 31-80 ng/mL Toxicity: > 100 ng/mL. Test performed by chemiluminescent immunoassay. Performed By: #### 1 989-3 ####[facility] LABCLIA [id number] [place] [address] [place] Lipid 1996 panelon 5 Cholesterol [Mass/Vol] 220 mg/dL High <200 [facility] Comment on above: Order Comment: Speci men Type: BLOOD SPECIMENOrdering Facility: [facility] Address: [address] [place] [address] Result Comment: <200 mg/dL, Desirable 200-239 mg/dL, Borderline high >239 mg/dL, High Performed By: #### 2 4331-1 ####[facility] LABCLIA [id number] [place] [address] [place] Cholesterol in HDL [Mass/Vol] 55 mg/dL Normal >39 [facility] Comment on above: Order Comment: Speci men Type: BLOOD SPECIMENOrdering Facility: [facility] Address: [address] [place] [address] Result Comment: 40-5 9 mg/dL, Acceptable >59 mg/dL, High: Negative risk factor for coronary heart disease <40 mg/dL, Low: Positive risk factor for coronary heart disease Performed By: #### 2 4331-1 ####[facility] LABCLIA [id number] [address] [place] Cholesterol in LDL [Mass/Vol] 148 mg/dL High <100 [facility] Comment on above: Order Comment: Speci men Type: BLOOD SPECIMENOrdering Facility: [facility] Address: [address] [place] [address] Result Comment: <100 mg/dL, Optimal 100-129 mg/dL, Near optimal/above optimal 130-159 mg/dL, Borderline high 160-189 mg/dL, High >189 mg/dL, Very high Secondary prevention optimal LDL Cholesterol levels are recommended to be < 70 mg/dL Performed By: #### 2 4331-1 ####[facility] LABCLIA [id number] [place] [address] [place] Cholesterol in LDL/Cholesterol in HDL [Mass ratio] 2.69 {ratio} High <2.54 [facility] Comment on above: Order Comment: Speci men Type: BLOOD SPECIMENOrdering Facility: [facility] Address: [address] [place] [address] Result Comment: Alicia live: 1. National Cholesterol Education Program ATP III Guideline At-A-Glance Quick Desk Reference: National Heart, Lung, and Blood [place]. National Institutes of Health. 2001: NIH Publication No. 01-3305. 2. An International Atherosclerosis Society position paper: global recommendations for the management of dyslipidemia: executive summary, Atherosclerosis. 2014: 232(2):410-413. Performed By: #### 2 4331-1 ####[facility] LABCLIA [id number] [place] [address] [place] Cholesterol in VLDL [Mass/Vol] 17 mg/dL Normal <30 [facility] Comment on above: Order Comment: Speci men Type: BLOOD SPECIMENOrdering Facility: [facility] Address: [address] [place] [address] Performed By: #### 2 4331-1 ####[facility] LABCLIA [id number] [place] [address] [place] Cholesterol non HDL [Mass/Vol] 165 mg/dL High <130 [facility] Comment on above: Order Comment: Rocioi men Type: BLOOD SPECIMENOrdering Facility: [facility] Address: [address] [place] [address] Result Comment: <130 mg/dL, Optimal 130-159 mg/dL, Near optimal/above optimal 160-189 mg/dL, Borderline high 190-219 mg/dL, High >219 mg/dL, Very high Secondary prevention optimal non HDL Cholesterol levels are recommended to be <100 mg/dL Performed By: #### 2 4331-1 ####[facility] LABCLIA [id number] [place] [address] [place] Cholesterol.total/Ch olesterol in HDL [Mass ratio] 4.00 {ratio} Normal <5.10 [facility] Comment on above: Order Comment: Speci men Type: BLOOD SPECIMENOrdering Facility: [facility] Address: [address] [place] [address] Performed By: #### 2 4331-1 ####[facility] LABCLIA [id number] [place] [address] [place] FASTING TIME 12 hrs Normal [facility] Comment on above: Order Comment: Speci men Type: BLOOD SPECIMENOrdering Facility: [facility] Address: [address] [place] [address] Performed By: #### 2 4331-1 ####[facility] LABCLIA [id number] [place] [address] [place] Triglyceride [Mass/Vol] 83 mg/dL Normal <150 [facility] Comment on above: Order Comment: Speci men Type: BLOOD SPECIMENOrdering Facility: [facility] Address: [address] [place] [address] Result Comment: <150 mg/dL, Normal 150-199 mg/dL, Borderline high 200-499 mg/dL, High >499 mg/dL, Very high Performed By: #### 2 4331-1 ####[facility] LABCLIA [id number] [place] [address] [place] CNOVon 05-16-2024 CNOV Office Visit (INTMWS ) RENATE INFANTE I ([id number]) 1950 F Date Time Provider Department 05/16/24 1:20 PM FREDERIC LOUNG INTMWS During your visit today, we recorded the following information about you: Temperature Pulse Blood pressure Weight 98.7 degrees 71/minute 150/76 57.2 kg Frederic Luong MD 05/16/2024 2:07 PM Signed This note was created using [employer]. Subjective Renate Infante is a 73 year old female. She was treated for urinary tract infection in January with gross hematuria, abnormal UA and culture + for E. Coli. She reported symptoms did not resolve completely. [facility]. UA was normal, but urine culture was sent showing a lower CC of E. Coli. She was treated again but was not better. Review of Systems Constitutional: Negative for chills, fatigue and fever. Gastrointestinal: Negative for abdominal pain, nausea and vomiting. Genitourinary: Positive for decreased urine volume, dysuria, pelvic pain and urgency. Negative for flank pain and vaginal discharge. ACTIVE PROBLEM LIST Hyperlipidemia, Mixed Vitamin D Deficiency Stress Incontinence, Female Age-Related Osteoporosis Without Current Pathological Fracture Memory Changes Social History Tobacco Use Smoking status: Never Smokeless tobacco: Never Vaping Use Vaping status: Never Used Substance Use Topics Alcohol use: Not Currently Drug use: No Current Outpatient Medications Medication Sig alendronate (FOSAMAX) 70 mg tablet Take 1 tablet by mouth one time a week. Take with a full glass of water, on an empty stomach; do NOT lie down for 30minutes. diclofenac, EC, (VOLTAREN) 75 mg EC tablet Take 1 tablet by mouth two times a day. For pain/inflammation. Take with food. DULoxetine (CYMBALTA) 20 mg capsule Take 1 capsule by mouth once daily. No current facility-administered medications for this visit. Objective BP 150/76 Pulse 71 Temp 37.1 ?C (98.7 ?F) (Temporal) Wt 57.2 kg (126 lb 1.7 oz) LMP 07/03/2005 SpO2 95% BMI 24.92 kg/m? Physical Exam Constitutional: General: She is not in acute distress. Appearance: She is not ill-appearing. Cardiovascular: Heart sounds: Normal heart sounds. Pulmonary: Breath sounds: Normal breath sounds. Abdominal: Palpations: Abdomen is soft. There is no mass. Tenderness: There is no abdominal tenderness. There is no right CVA tenderness or left CVA tenderness. Neurological: Mental Status: She is alert. Latest Ref Rng 05/16/2024 GLUCOSE UA (POCT) Negative mg/dL Negative BILIRUBIN UA (POCT) Negative Negative KETONE UA (POCT) Negative mg/dL Negative SPECIFIC GRAVITY UA (POCT) 1.005 - 1.030 1.020 HEMOGLOBIN/BLOOD UA (POCT) Negative Negative PH UA (POCT) 4.5 - 8.0 7.0 PROTEIN UA (POCT) Negative mg/dL Negative UROBILINOGEN UA (POCT) Normal E.U./dL 0.2 NITRITE UA (POCT) Negative Negative LEUKOCYTES UA (POCT) Negative Negative COLOR UA (POCT) Yellow CLARITY UA (POCT) Clear Assessment and Plan 1. Urinary hesitancy - ICD9: 788.64, ICD10: R39.11 (primary diagnosis) - UA DIP, URINE (POC) - CONSULT TO FEMALE UROLOGY/URO GYNECOLOGY 2. Dysuria - ICD9: 788.1, ICD10: R30.0 recurrent - UA DIP, URINE (POC) - CONSULT TO FEMALE UROLOGY/URO GYNECOLOGY 3. Pelvic pain - ICD9: TUU3152, ICD10: R10.2 - CONSULT TO FEMALE UROLOGY/URO GYNECOLOGY Frederic Luong MD Allergies As of Date: 05/16/2024 Noted Allergy Reaction MELOXICAM 10/21/2012 14 - Other: See Comments Comments: muscle tremors/spasms SEPTRA (SULFAMETHOXAZOLE-TRIM ETHO*06/04/2023 4 - Hives Date Reviewed: 05/16/2024 Reviewed by: Emily Mars LPN - Fully Assessed Reason for Visit: UTI [116] Cmt: dysuria with urinary frequency. Has trouble staring the flow and will stop urinating without trying Just finished treatment of UTI last week. Primary Visit Diagnosis:Urinary hesitancy [R39.11] Other Visit Diagnoses:Dysuria [R30.0] Pelvic pain [R10.2] Order(s):UA DIP, URINE (POC) [[id number]] Order #: [id number]. #:[id number] CONSULT TO FEMALE UROLOGY/URO GYNECOLOGY [[id number]] Order #: [id number]: 1 FUTURE Prescriptions as of 05/16/2024 - alendronate (FOSAMAX) 70 mg tablet Take 1 tablet by mouth one time a week. Take with a full glass of water, on an empty stomach; do NOT lie down for 30minutes. - diclofenac, EC, (VOLTAREN) 75 mg EC tablet Take 1 tablet by mouth two times a day. For pain/inflammation. Take with food. - DULoxetine (CYMBALTA) 20 mg capsule Take 1 capsule by mouth once daily. Meds Comments as of 06/15/2010: Problem List As Of Date 05/16/2024 Noted Resolved Irritable bowel syndrome [K58.9] 11/21/2005 03/24/2024 HEADACHE [R51] 11/21/2005 01/02/2006 Mgrn Wo Aura Wo Intrc Mgr [G43.009] 01/02/2006 10/21/2013 Carpal tunnel syndrome [G56.00] 03/05/2006 09/05/2011 Pain in joint, lower leg [M25.569] 03/05/2006 (more content not included)... [facility] RENATE INFANTE I ([id number]) 1950 F Date Time Provider Department 05/16/24 MOON FELIZ INTDARRYL During your visit today, we recorded the following information about you: Ele Montoya 05/16/2024 10:22 AM Signed Patient calling in to let Moon know she is still having symptoms of a UTI. Please review and advise. Ele Montoya May 16, 2024 10:22 AM Moon Feliz APRN.EXCELLENCE SPECIALIST 05/16/2024 10:29 AM Signed Needs appointment Moon Feliz APRN.Zoila Be MA 05/16/2024 11:13 AM Signed Patient was notified and appointment was made Zoila Carranza MA Allergies As of Date: 05/16/2024 Noted Allergy Reaction MELOXICAM 10/21/2012 14 - Other: See Comments Comments: muscle tremors/spasms SEPTRA (SULFAMETHOXAZOLE-TRIM ETHO*06/04/2023 4 - Hives Date Reviewed: 04/30/2024 Reviewed by: Moon Feliz APRN.EXCELLENCE SPECIALIST - Fully Assessed Reason for Visit: Patient Update [1234] Prescriptions as of 05/16/2024 - alendronate (FOSAMAX) 70 mg tablet Take 1 tablet by mouth one time a week. Take with a full glass of water, on an empty stomach; do NOT lie down for 30minutes. - diclofenac, EC, (VOLTAREN) 75 mg EC tablet Take 1 tablet by mouth two times a day. For pain/inflammation. Take with food. - DULoxetine (CYMBALTA) 20 mg capsule Take 1 capsule by mouth once daily. Meds Comments as of 06/15/2010: Problem List As Of Date 05/16/2024 Noted Resolved Irritable bowel syndrome [K58.9] 11/21/2005 03/24/2024 HEADACHE [R51] 11/21/2005 01/02/2006 Mgrn Wo Aura Wo Intrc Mgr [G43.009] 01/02/2006 10/21/2013 Carpal tunnel syndrome [G56.00] 03/05/2006 09/05/2011 Pain in joint, lower leg [M25.569] 03/05/2006 03/24/2024 Lumbago [M54.50] 07/16/2006 03/24/2024 Diarrhea [R19.7] 05/10/2007 11/26/2018 Acute Gastritis without Mention of Hemorrhage [*05/10/2007 09/05/2011 Benign neoplasm of colon [D12.6] 11/22/2007 03/24/2024 Internal Hemorrhoids without Mention of Complic*11/22/2007 09/05/2011 Pain in Soft Tissues of Limb [M79.609] 07/09/2008 09/05/2011 Calcaneal spur [M77.30] 07/09/2008 09/05/2011 Hyperlipidemia, mixed [E78.2] 09/29/2011 Vitamin D deficiency [E55.9] 09/18/2012 Stress incontinence, female [N39.3] 10/21/2013 Clostridium difficile diarrhea [A04.72] 08/14/2014 11/26/2018 Insomnia [G47.00] 05/04/2015 03/24/2024 Anxiety and depression [F41.9, F32.A] 05/04/2015 03/24/2024 Nonspecific abnormal toxicology (inconsistent) *05/05/2015 03/24/2024 Age-related osteoporosis without current pathol*08/11/2022 History of colonic polyps [Z86.0100] 12/28/2022 03/24/2024 Memory changes [R41.3] 06/04/2023 Encounter Status:Closed by ZOILA CARRANZA on 05/16/24 Normal [facility] UA DIP, URINE (POC)on 2024 BILIRUBIN UA (POCT) Negative Negative [facility] CLARITY UA (POCT) Clear [facility] COLOR UA (POCT) [facility] GLUCOSE UA (POCT) Negative Negative mg/dL [facility] Hemoglobin Ql (U) Negative Negative [facility] KETONE UA (POCT) Negative Negative mg/dL [facility] LEUKOCYTES UA (POCT) Negative Negative [facility] NITRITE UA (POCT) Negative Negative [facility] PH UA (POCT) 7.0 4.5 - 8.0 [facility] Protein Ql (U) Negative Negative mg/dL [facility] SPECIFIC GRAVITY UA (POCT) 1.020 1.005 - 1.030 [facility] UROBILINOGEN UA (POCT) 0.2 Normal E.U./dL [facility] Location:[address], [place], [address] [facility] POINT OF CARE [facility] CNOVon 04-30-2024 CNOV Office Visit (INTMWS ) RENATE INFANTE I ([id number]) 1950 F Date Time Provider Department 04/30/24 4:20 PM MOON FELIZ INTMWS During your visit today, we recorded the following information about you: Pulse Respiration Blood pressure Weight 74/minute 14/minute 118/72 55.8 kg Height 1.515 m Moon Feliz APRN.CNP 04/30/2024 4:58 PM Signed Renate Infante is a 73 year old female here for a Medicare wellness visit. Medicare Health Risk Assessment General Health Fair Exercise: Minutes/Day Patient declined Exercise: Days/Week Patient declined Alcohol: Daily Use Never Alcohol: Drinks/Day Patient does not drink Alcohol: 6 or more drinks Never Feel off balance No Concerns: Teeth/Dentures No Concerns: Sexual function No Troubled by feelings Anxious; Stressed Frequency: Eating healthy diet Several days ADLs requiring help None of the above Safety precautions in home/vehicle Yes Smoke, vape, chews tobacco No Difficulty hearing No Difficulty seeing Yes Current Providers Specialists: I have reviewed specialist-related care of the patient in the medical record. Current care team: Patient Care Team: Frederic Luong MD as PCP - General Moon Feliz APRN.SHOAIB as Test Engineering Manager (Internal Medicine) [facility] ophthalmology Medical/Family history review Reviewed and updated problem list, medical/surgical/famil y/social history, medications, and allergies. Opioid use review Opioid Medications (last 90 days) 03/24/2024 00:00 03/27/2024 23:59 Opioid Medications hydrocodone/acetaminop hen 1 tablet q 8 H PRN ORAL -Rx End Details Outpatient prescription Anxiety/Depression screening PHQ-9 Score: 9 (Mild Depression) LENKA-7 Score: 13 (Moderate Anxiety) Recommendation: medication management Cognitive screening Mini Cog Score: 4 Cognitive screening reviewed and No further action needed (score 3-5). Functional Observation Was the patient's Timed Up AND Go test unsteady or >= 12 seconds? No Advance Care Planning Patient was not able to provide a surrogate decision maker or written advance directives Measurements BP 118/72 Pulse 74 Resp 14 Ht 151.5 cm (4' 11.65) Wt 55.8 kg (123 lb 0.3 oz) LMP 07/03/2005 SpO2 98% BMI 24.31 kg/m? Vision Screening: Follows with optometry/ophthalmolog y Assessment/Plan Medicare annual wellness visit, subsequent (Z00.00) - Counseled on healthy diet and regular exercise - Fall avoidance information provided - Personalized prevention plan provided Additional Concerns The following concerns were also discussed with the patient: Patient reports anxiety due to significant stressors (see LENKA and PHQ-9 scores). She and her have full custody of their two grandchildren one of which is severely autistic. Personal mental health hx: none. Medication history: none Sleep: difficulty falling asleep Alcohol use: does not drink any alcohol Drug use: No Appetite: fair Suicidal Thoughts: No suicidal ideation, intent or plan Support: Limited to her Counseling: No She has chronic joint pains secondary to osteoarthritis, worse during the winter. She is taking Fosamax as prescribed, denies side effects. BP 118/72 Pulse 74 Resp 14 Ht 151.5 cm (4' 11.65) Wt 55.8 kg (123 lb 0.3 oz) LMP 07/03/2005 SpO2 98% BMI 24.31 kg/m? Physical Exam Vitals reviewed. Constitutional: Appearance: Normal appearance. Cardiovascular: Rate and Rhythm: Normal rate and regular rhythm. Heart sounds: Normal heart sounds. Pulmonary: Effort: Pulmonary effort is normal. Breath sounds: Normal breath sounds. No wheezing, rhonchi or rales. Skin: General: Skin is warm and dry. Neurological: Mental Status: She is alert. Psychiatric: Attention and Perception: Attention and perception normal. Mood and Affect: Mood is anxious and depressed. Speech: Speech normal. Behavior: Behavior normal. Thought Content: Thought content normal. Judgment: Judgment normal. ASSESSMENT/PLAN: 1. Medicare annual wellness visit, subsequent - ICD9: V70.0, ICD10: Z00.00 (primary diagnosis) See medicare wellness plan 2. Situational mixed anxiety and depressive disorder - ICD9: 309.28, ICD10: F43.23 Secondary to significant stressors. Discussed treatment options and benefits of counseling in combination with medication. - Shared Medical Decision Making was done: Medication: Cymbalta 20 mg daily. Benefits: Medication may help with anxiety and chronic joint pain. Risks: Possible side effects were discussed including nausea, drowsiness, dry mouth, headache. Possible interactions: n/a. Warnings: n/a. - reviewed benefits of sleep hygeine, diet and exercise - Follow-up in 4 weeks or sooner as needed - Instructed patient to contact office or lubxa-am-uite after-hours promptly should condition worsen or any new symptoms appear. (more content not included)... Normal [facility] CNPNon 04-27-2024 CNPN Telephone (UCWSTR) NARESHRENATE Lee I ([id number]) 1950 F Date Time Provider Department 04/27/24 HARRISON FIGUEROA [facility] During your visit today, we recorded the following information about you: Harrison Figueroa APRN.EXCELLENCE SPECIALIST 04/27/2024 12:38 PM Addendum Left message for patient to call back about urine culture results. Urine culture was positive and a prescription for Macrobid was sent to her [facility]. She should otherwise follow-up with her family doctor if symptoms are not improving. 1235-patient returned phone call and she was notified of urine culture results and that prescription was called into her pharmacy. Allergies As of Date: 04/27/2024 Noted Allergy Reaction MELOXICAM 10/21/2012 14 - Other: See Comments Comments: muscle tremors/spasms SEPTRA (SULFAMETHOXAZOLE-TRIM ETHO*06/04/2023 4 - Hives Date Reviewed: 04/24/2024 Reviewed by: An Molina LPN - Fully Assessed Reason for Visit: Results [95] Primary Visit Diagnosis:Acute UTI [N39.0] Order(s):nitrofurantoi n monohydrate and macrocrystal (MACROBID) 100 mg capsuleTake 1 capsule by mouth two times a day for 5 days.Disp: 10 capsuleRfl: 0 Prescriptions as of 04/27/2024 - nitrofurantoin monohydrate and macrocrystal (MACROBID) 100 mg capsule Take 1 capsule by mouth two times a day for 5 days. - diclofenac, EC, (VOLTAREN) 75 mg EC tablet Take 1 tablet by mouth two times a day. For pain/inflammation. Take with food. - alendronate (FOSAMAX) 70 mg tablet Take 1 tablet by mouth one time a week. Take with a full glass of water, on an empty stomach; do NOT lie down for 30minutes. Meds Comments as of 06/15/2010: Problem List As Of Date 04/27/2024 Noted Resolved Irritable bowel syndrome [K58.9] 11/21/2005 03/24/2024 HEADACHE [R51] 11/21/2005 01/02/2006 Mgrn Wo Aura Wo Intrc Mgr [G43.009] 01/02/2006 10/21/2013 Carpal tunnel syndrome [G56.00] 03/05/2006 09/05/2011 Pain in joint, lower leg [M25.569] 03/05/2006 03/24/2024 Lumbago [M54.50] 07/16/2006 03/24/2024 Diarrhea [R19.7] 05/10/2007 11/26/2018 Acute Gastritis without Mention of Hemorrhage [*05/10/2007 09/05/2011 Benign neoplasm of colon [D12.6] 11/22/2007 03/24/2024 Internal Hemorrhoids without Mention of Complic*11/22/2007 09/05/2011 Pain in Soft Tissues of Limb [M79.609] 07/09/2008 09/05/2011 Calcaneal spur [M77.30] 07/09/2008 09/05/2011 Hyperlipidemia, mixed [E78.2] 09/29/2011 Vitamin D deficiency [E55.9] 09/18/2012 Stress incontinence, female [N39.3] 10/21/2013 Clostridium difficile diarrhea [A04.72] 08/14/2014 11/26/2018 Insomnia [G47.00] 05/04/2015 03/24/2024 Anxiety and depression [F41.9, F32.A] 05/04/2015 03/24/2024 Nonspecific abnormal toxicology (inconsistent) *05/05/2015 03/24/2024 Age-related osteoporosis without current pathol*08/11/2022 History of colonic polyps [Z86.0100] 12/28/2022 03/24/2024 Memory changes [R41.3] 06/04/2023 Prescriptions ordered this encounter Disp Refills Start End NITROFURANTOIN MONOHYDRATE AND MACROCR* 10 c* 0 04/27/2024 05/02/2024 Route: ORAL Sig: Take 1 capsule by mouth two times a day for 5 days. Encounter Status:Closed by HARRISON FIGUEROA on 04/27/24 [facility] Bacteria Ur Culton Bacteria identified Cx Nom (U) ORGANISM ID: 1 50,000-<100,000 CFU/ml Escherichia coli ORGANISM ID: 1 (ESCHERICHIA COLI) -- ANTIBIOTIC INTERPRETATION MEENU STATUS REFERENCE RANGE -- Ampicillin S <=2 F Susceptible <=8 , Intermediate >8 , Resistant >16 Cefazolin S <=4 F Susceptible 0-16 , Intermediate <0 or >16 , Resistant >16 For uncomplicated urinary tract infections, cefazolin results can be used to predict susceptibility or resistance to cephalexin. Ceftriaxone S <=1 F Susceptible <=1 , Intermediate >1 , Resistant >=4 Cefepime S <=1 F Susceptible <=2 , Susceptible-Dose Dependent >2 , Resistant >=16 Ertapenem S <=0.5 F Susceptible <=0.5 , Intermediate >.5 , Resistant >1 Meropenem S <=0.25 F Susceptible <=1 , Intermediate >1 , Resistant >2 Ampicillin/Sulbact S <=2 F Susceptible <=8 , Intermediate >8 , Resistant >16 Piperacillin/Tazobac S <=4 F Susceptible <16 , Susceptible-Dose Dependent >=16 , Resistant >=32 Gentamicin S 2 F Susceptible <=2 , Intermediate >2 , Resistant >=8 Tobramycin S <=1 F Susceptible <4 , Intermediate >=4 , Resistant >=8 Amikacin I 8 F Susceptible <8 , Intermediate >=8 , Resistant >=16 Trimeth sulfameth S <=20 F Susceptible <=40 , Resistant >40 Ciprofloxacin R >=4 F Susceptible <0.5 , Intermediate >=.5 , Resistant >=1 Nitrofurantoin S <=16 F Susceptible <=32 , Intermediate >32 , Resistant >64 Abnormal [facility] Comment on above: Performed By: #### 6 30-4 ####[facility] LABCL[facility] [id number] [address] CNOVon 04-24-2024 CNOV Office Visit (UCWSTR ) RENATE INFANTE I ([id number]) 1950 F Date Time Provider Department 04/24/24 12:45 PM AGUS GARCIA [facility] During your visit today, we recorded the following information about you: Temperature Pulse Respiration Blood pressure 97.2 degrees 72/minute 20/minute 151/77 Weight 57 kg Agus Garcia APRN.EXCELLENCE SPECIALIST 04/24/2024 1:28 PM Signed CC: Patient presents with: Urinary Problem: Pain and urgency with urination x 1 week No risk of std HPI Renate Mesa Naresh is a 73 year old female who presents with complaint of possible UTI. These symptoms have been present for 7 days. Associated symptoms: burning and urgency Denies: pressure, fever, chills, sweats, abdominal pain, and flank pain Treatments: nothing The ROS was otherwise negative. PMH, Medications, labs, allergies, and recent past visits with PCP were reviewed and updated as able. PHYSICAL EXAM: BP 151/77 Pulse 72 Temp 36.2 ?C (97.2 ?F) Resp 20 Wt 57 kg (125 lb 10.6 oz) LMP 07/03/2005 SpO2 99% BMI 22.98 kg/m? General: Well appearing and alert CV: Regular rate and rhythm without obvious murmur Lungs: clear to auscultation bilaterally Back: straight and symmetric Abdomen: soft, nontender, nondistended PAST MEDICAL HISTORY Diagnosis Date Acute gastritis without mention of hemorrhage Age-related osteoporosis without current pathological fracture 08/11/2022 Allergic rhinitis, cause unspecified Anemia, unspecified 11/21/2005 Anxiety and depression 05/04/2015 Arthritis Benign neoplasm of colon Carpal tunnel syndrome 03/05/2006 Cervicalgia 1998 Clostridium difficile diarrhea 08/14/2014 Diarrhea Diarrhea Headache(784.0) 11/21/2005 Insomnia 05/04/2015 Internal hemorrhoids without mention of complication Irritable bowel syndrome 11/21/2005 Lumbago 07/16/2006 narcotic contract signed,scanned in and in paper chart 07/28/09. Migraine without aura, without mention of intractable migraine without mention of status migrainosus Nonspecific abnormal toxicology (inconsistent) 05/05/2015 Pain in joint, lower leg 03/05/2006 PAST SURGICAL HISTORY Procedure Laterality Date APPENDECTOMY ARTHROSCOPY KNEE DIAGNOSTIC W/WO SYNOVIAL BX SPX 04/16/1987 Arthroscopy, knee, Dr. Griggs COLONOSCOPY 12/28/2022 repeat in 10 years COLONOSCOPY FLX DX W/COLLJ SPEC WHEN PFRMD 05/17/2003 Colonoscopy, Dr. Disla COLONOSCOPY FLX DX W/COLLJ SPEC WHEN PFRMD 05/23/2013 Colonoscopy COLSC FLX W/RMVL OF TUMOR POLYP LESION SNARE TQ 11/22/2007 EGD TRANSORAL BIOPSY SINGLE/MULTIPLE 05/10/2007 ESOPHAGOGASTRODUODENOS COPY TRANSORAL DIAGNOSTIC 09/14/1994 EGD INCISE FINGER TENDON SHEATH Right 08/31/2023 Right middle trigger finger release LAMINECTOMY W/O FFD 1/2 VERT SEG LUMBAR [...] W/REMOVAL TUBES/OV 04/16/2012 ALLERGIES Meloxicam and Septra [Sulfamethoxazole-Trim ethoprim] MEDICATIONS alendronate (FOSAMAX) 70 mg tablet Take 1 tablet by mouth one time a week. Take with a full glass of water, on an empty stomach; do NOT lie down for 30minutes. diclofenac, EC, (VOLTAREN) 75 mg EC tablet Take 1 tablet by mouth two times a day. For pain/inflammation. Take with food. (Patient not taking: Reported on 04/24/2024) FAMILY HISTORY Problem Relation Age of Onset Hypertension Mother Diabetes Mother Heart Mother Congestive Heart Failure Cataract Mother COPD Father of COPD Coronary Artery Disease Father Heart Father Cataract Sister Cataract Brother Cataract Brother Asthma Brother 2 brothers Cancer Brother metastatic, etiol? Social History Tobacco Use Smoking status: Never Smokeless tobacco: Never Vaping Use Vaping status: Never Used Substance Use Topics Alcohol use: Not Currently Drug use: No ASSESSMENT/PLAN: 1. Urinary urgency - ICD9: 788.63, ICD10: R39.15 - UA DIP, URINE (POC) - BACTERIAL CULTURE, URINE No medication at this time. If positive please prescribe antibiotic accordingly Potential red flag symptoms discussed with the patient. Reviewed appropriate action plan to take if red flag symptoms occur. Patient agreeable to treatment plan. Will follow up with PCP if everything is negative and still having symptom (more content not included)... Normal [facility] UA DIP, URINE (POC)on 2024 BILIRUBIN UA (POCT) Negative Negative [facility] CLARITY UA (POCT) Clear [facility] COLOR UA (POCT) Yellow [facility] GLUCOSE UA (POCT) Negative Negative mg/dL [facility] Hemoglobin Ql (U) Negative Negative [facility] KETONE UA (POCT) Negative Negative mg/dL [facility] LEUKOCYTES UA (POCT) Negative Negative [facility] NITRITE UA (POCT) Negative Negative [facility] PH UA (POCT) 7.0 4.5 - 8.0 [facility] Protein Ql (U) Negative Negative mg/dL [facility] SPECIFIC GRAVITY UA (POCT) 1.015 1.005 - 1.030 [facility] UROBILINOGEN UA (POCT) 0.2 Normal E.U./dL [facility] Location:[facility], [address] [place] [address], [place], [place], [id number] [place] [address] POINT OF CARE [facility] CNOVon 03-24-2024 CNOV Office Visit (INTMWS ) RENATE INFANTE I ([id number]) 1950 F Date Time Provider Department 03/24/24 7:20 PM FREDERIC LUONG INTMWS During your visit today, we recorded the following information about you: Temperature Pulse Respiration Blood pressure 99.1 degrees 90/minute 14/minute 138/80 Weight 56.5 kg Frederic Luong MD 03/24/2024 8:04 PM Signed This note was created using [employer]. Subjective Patient presents with: ER F/U: Fall 03/20/2024 Renate Infante is a 73 year old female. She had an accidental fall and was evaluated in the ER 03/20/2024. She was prescribed Lidoderm and cyclobenzaprine for left rib pain. She was taking ibuprofen. CT of the chest, CT of the neck, and CT of the head showed no acute process. Patient thought she had a hairline fracture, but pain was not improving, and interfering with activities of daily living. Pain was rated 8/10. Review of Systems Constitutional: Negative for fatigue and fever. Respiratory: Negative for chest tightness and shortness of breath. Cardiovascular: Negative for chest pain. Gastrointestinal: Negative for abdominal pain, nausea and vomiting. Neurological: Negative for dizziness, syncope and light-headedness. ACTIVE PROBLEM LIST Hyperlipidemia, Mixed Vitamin D Deficiency Stress Incontinence, Female Age-Related Osteoporosis Without Current Pathological Fracture Memory Changes Social History Tobacco Use Smoking status: Never Smokeless tobacco: Never Vaping Use Vaping status: Never Used Substance Use Topics Alcohol use: Not Currently Drug use: No Current Outpatient Medications Medication Sig naproxen sodium (ALEVE ORAL) Take by mouth. IBUPROFEN ORAL Take by mouth. alendronate (FOSAMAX) 70 mg tablet Take 1 tablet by mouth one time a week. Take with a full glass of water, on an empty stomach; do NOT lie down for 30minutes. acetaminophen 650 mg CR tablet Take 650 mg by mouth every 8 hours as needed. No current facility-administered medications for this visit. Objective BP 138/80 Pulse 90 Temp 37.3 ?C (99.1 ?F) (Tympanic) Resp 14 Wt 56.5 kg (124 lb 9 oz) LMP 07/03/2005 SpO2 98% BMI 22.78 kg/m? Physical Exam Constitutional: General: She is not in acute distress. Appearance: She is not ill-appearing or diaphoretic. HENT: Head: Atraumatic. Cardiovascular: Heart sounds: Normal heart sounds. Pulmonary: Effort: No respiratory distress. Breath sounds: Normal breath sounds. No wheezing or rales. Comments: Left lateral chest wall tenderness. Chest: Chest wall: Tenderness present. No deformity, swelling or crepitus. Abdominal: General: There is no distension. Palpations: Abdomen is soft. Tenderness: There is no abdominal tenderness. Musculoskeletal: Cervical back: Neck supple. No tenderness. Skin: Findings: No bruising or rash. Neurological: Mental Status: She is alert. Assessment and Plan 1. Rib contusion, left, subsequent encounter - ICD9: V58.89, 922.1, ICD10: S20.212D (primary diagnosis) Shared medical decision making was done. Try different NSAID. NSAID intolerance noted. One time [place] prescription was discussed. Risks of opioids were reviewed. - DICLOFENAC SODIUM 75 MG TABLET,DELAYED RELEASE - HYDROCODONE 5 MG-ACETAMINOPHEN 325 MG TABLET 2. Elevated blood pressure reading - ICD9: 796.2, ICD10: R03.0 - Possibly from pain. - Goal of BP <130/80 Frederic Luong MD Allergies As of Date: 03/24/2024 Noted Allergy Reaction MELOXICAM 10/21/2012 14 - Other: See Comments Comments: muscle tremors/spasms SEPTRA (SULFAMETHOXAZOLE-TRIM ETHO*06/04/2023 4 - Hives Date Reviewed: 03/24/2024 Reviewed by: Zoila Carranza MA - Fully Assessed Reason for Visit: ER F/U [41] Cmt: fall03/20/2024 Primary Visit Diagnosis:Rib contusion, left, subsequent encounter [S21.589I] Other Visit Diagnosis:Elevated blood pressure reading [R03.0] Order(s):diclofenac, EC, (VOLTAREN) 75 mg EC tabletTake 1 tablet by mouth two times a day. For pain/inflammation. Take with food.Disp: 30 tabletRfl: 0 HYDROcodone-acetaminop hen (NORCO) 5-325 mg per tabletTake 1 tablet by mouth every 8 hours as needed for pain for up to 3 days.Disp: 9 tabletRfl: 0 Prescriptions as of 03/24/2024 - diclofenac, EC, (VOLTAREN) 75 mg EC tablet Take 1 tablet by mouth two times a day. For pain/inflammation. Take with food. - HYDROcodone-acetaminop hen (NORCO) 5-325 mg per tablet Take 1 tablet by mouth every 8 hours as needed for pain for up to 3 days. - alendronate (FOSAMAX) 70 mg tablet Take 1 tablet by mouth one time a week. Take with a full glass of water, on an empty stomach; do NOT lie down for 30minutes. Meds Comments as of 06/15/2010: Problem List As Of Date 03/24/2024 Noted Resolved Irritable bowel syndrome [K58.9] 11/21/2005 03/24/2024 HEADACHE [R51] 11/21/2005 01/02/2006 Mgrn Wo Aura Wo Intrc Mgr [ (more content not included)... Normal [facility] 12 Lead EKGon 03-20-2024 12 Lead EKG [facility] Cardiovascular Services [address] [place] [address] 12 Lead EKG 03/20/24 1222 MR#: [id number] Acct: [id number] Name: RENATE INFANTE Rep #: [id number] : 1950 73 From: Jacinto Sinha MD Attending Dr: Status: DEP ER Ordering Dr: Yony Portillo DO Date: 03/20/24 Location: ED Sex: F C Admitted: Test Reason : Blood Pressure : */* mmHG Vent. Rate : 65 BPM Atrial Rate : 65 BPM P-R Int : 144 ms QRS Dur : 76 ms QT Int : 398 ms P-R-T Axes : 63 2 -1 degrees QTcB Int : 413 ms Normal sinus rhythm ST T wave abnormality, consider anterior ischemia Abnormal ECG Confirmed by Jacinto Sinha ([id number]), tape editor BARTOLO CORMIER ([id number]) on 03/21/2024 10:45:46 AM Referred By: ZEN Confirmed By: Jacinto Sinha 03/21/24 1045 Date Jacinto Sinha MD CC: Dr. Yony Portillo, DO; Dr. Frederic Luong MD Signed Normal [facility] Basic Metabolic Profile (BMP )on 03-20-2024 BUN/CRE 15.6 RATIO Normal 10-20 [facility] Comment on above: Performed By: #### L 500.2500 #### [facility] [address] [place], [address] CA,Total 9.1 mg/dL Normal 8.5-10.1 [facility] Comment on above: Performed By: #### L 500.2500 #### [facility] [address] [place], [address] Chloride [Moles/Vol] 106 mmol/L Normal 98-107 [facility] Comment on above: Performed By: #### L 500.2500 #### [facility] [address] [place], [address] CO2 [Moles/Vol] 31.0 mmol/L Normal 21.0-32.0 [facility] Comment on above: Performed By: #### L 500.2500 #### [facility] [address] [place], [address] Creatinine [Mass/Vol] 0.71 mg/dL Normal 0.55-1.02 [facility] Comment on above: Result Comment: The validity of the calculated GFR GFRAA in patients over 70 years has not been determined. Clinical correlation is essential. Performed By: #### L 500.2500 #### [facility] [address] [place], [address] ECRCL 53.66 ml/min Normal [facility] Comment on above: Performed By: #### L 500.2500 #### [facility] [address] [place], [address] EST GFR - AA 105 mL/min Normal >60 [facility] Comment on above: Result Comment: Afri can [place] GFR Calc Performed By: #### L 500.2500 #### [facility] [address] [place], [address] GAP 3 Low 5-15 [facility] Comment on above: Performed By: #### L 500.2500 #### [facility] [address] [place], [address] GFR/1.73 sq M.predicted among non-blacks MDRD (S/P/Bld) [Vol rate/Area] 87 mL/min/{1.73_m2} Normal >60 [facility] Comment on above: Result Comment: Non- GFR Calc Performed By: #### L 500.2500 #### [facility] [address] [place], [address] Glucose [Mass/Vol] 107 mg/dL High 74-106 [facility] Comment on above: Result Comment: Fast ing Glucose result from 100 to 125 mg/dL suggests IMPAIRED HOMEOSTASIS per A.D.A. criteria. Performed By: #### L 500.2500 #### [facility] [address] [place], [address] Potassium [Moles/Vol] 3.4 mmol/L Low 3.5-5.1 [facility] Comment on above: Performed By: #### L 500.2500 #### [facility] [address] [place], [address] Sodium [Moles/Vol] 140 mmol/L Normal 136-145 [facility] Comment on above: Performed By: #### L 500.2500 #### [facility] [address] [place], [place], [id number] Urea nitrogen [Mass/Vol] 11 mg/dL Normal 7-18 [facility] Comment on above: Performed By: #### L 500.2500 #### [facility] [address] [place], [address] Brain/Head without Contrasto n 03-20-2024 Brain/Head without Contrast [facility] Imaging Services [address] [place] [address] Brain/Head without Contrast MR#: [id number] Acct: [id number] Name: RENATE INFANTE Rep #: [id number] : 1950 F 73 From: Festus schuster MD PCP: Dr. Frederic Luong MD Status: REG ER Study: Brain/Head without Contrast Date of Exam: 09/06 Exam# [id number] Ordering Dr: Yony Portillo DO [id number] STUDY: CT BRAIN WITHOUT CONTRAST REASON FOR EXAM: Female, 73 years old. Injury due to a fall. RADIATION DOSAGE (If Supplied By Facility): CTDIvol = ( 47.06 ) mGy, DLP = ( 855.03 ) mGycm TECHNIQUE: Transaxial CT imaging of the brain was performed without administration of intravenous contrast material. Individualized dose optimization techniques were used for this CT. COMPARISON: Comparison is made with prior study dated November 12, 2018. FINDINGS: Normal soft tissue structures. Normal calvarium. There is mild cerebral atrophy with widening of the extra-axial spaces and ventricular dilatation. Normal white matter tracts of the cerebral hemispheres. Normal basal ganglia and thalami. Normal brainstem. Normal cerebellum. There is no intracranial hemorrhage. There are no findings of an acute ischemic infarction. Atherosclerotic plaque formation of the cavernous portions of the internal carotid arteries bilaterally. Normal visualized paranasal sinuses. CT/Brain/Head without Contrast IMPRESSION: Chronic involutional changes of the brain. Electronically Signed: Festus Solis MD at 14:03 EST , CC: Dr. Yony Portillo DO; Dr. Frederic Luong MD [employer] Accountant: Signed Normal [facility] Chest WITH Contraston 2023 Chest WITH Contrast [facility] Imaging Services [address], [place] [address] Chest WITH Contrast MR#: [id number] Acct: [id number] Name: RENATE INFANTE Rep #: [id number] : 1950 F 73 From: Festus schuster MD PCP: Dr. Frederic Luong MD Status: REG Study: Chest WITH Contrast Date of Exam: 03/20/24 Exam# [id number] Ordering Dr: Yony Portillo DO [id number] STUDY: CT CHEST WITH CONTRAST REASON FOR EXAM: Female, 73 years old. Fall left rib pain RADIATION DOSAGE (If Supplied By Facility): CTDIvol = ( 13.74 ) mGy, DLP = ( 360.17 ) mGycm TECHNIQUE: Transaxial imaging was performed following intravenous administration of IV 100mL Isovue-300. Multiplanar coronal and sagittal images were reformatted. Individualized dose optimization techniques were used for this CT. COMPARISON: No relevant priors. FINDINGS: CHEST Mild degree of increased markings at the lung bases suggestive of either mild scarring and/or basilar atelectasis. There is a 2 cm x 1.8 cm bulla in the posterior medial segment of the right lower lobe. There is no demonstrated pleural abnormality. Normal heart and pericardium. No coronary calcification is seen. Normal mediastinum. Normal hilar regions. Normal unenhanced pulmonary arteries. There is atherosclerotic calcification of the aortic arch. There are multi-level degenerative changes of the thoracic spine. Increased kyphosis. Calcified granuloma in the posterior aspect of the dome of the right lobe of the liver. CT/Chest WITH Contrast IMPRESSION: Findings suggestive of mild degree of basilar atelectasis and/or scarring and bullous formation in the right lower lobe as described. Electronically Signed: Festus Solis MD at 13:57 EST Reading Location ID and State: [address] [place] [address] , Service support , CC: Dr. Yony Portillo DO; Dr. Frederic Luong MD [employer] Accountant: Signed Normal [facility] Emergency Department Summary on 03-20-2024 Emergency Department Summary [facility] Medical Records Department [address] [place] [address] Emergency Department Summary 03/20/24 MR#: [id number] Acct: [id number] Name: RENATE INFANTE Rep #: [id number] : 1950 73 From: Yony Portillo DO PCP: Dr. Frederic Luong MD Status:REG ER Location: ED HPI History of Present Illness Chief Complaint: Fall Narrative Narrative: Patient is a 73-year-old female with past medical history of osteoporosis who presents to the emergency department with a chief complaint of fall. Patient states this morning around 7:00 she bent over to pick something up and lost her balance landing on her left side. States that she has had worsening pain in her left ribs therefore she came here for the valuation management. Patient notes that she tried to take ibuprofen however this was not helping therefore she came here for further evaluation and management. Patient states that she did not have any lightheadedness, dizziness, shortness of breath, chest pain prior to the fall. States that she did not pass out she did not lose consciousness she remembers entire thing. Patient denies any history of blood thinning medications. [facility] Medical History Osteoporosis Home Medications ???Medication ???Instructions ???Recorded ???Last Taken ???Type ketorolac 0.5 % eye drops 1 drp LEFT EYE Q6H 08/12/21 Unknown History ofloxacin 0.3 % eye drops 1 drp LEFT EYE Q6H 08/12/21 Unknown History cyclobenzaprine 10 mg tablet 10 mg PO TID PRN Muscle Spasm #20 07/15/22 Unknown Rx TABLETS ibuprofen 600 mg tablet 600 mg PO Q8H PRN pain #30 TABLETS 07/15/22 Unknown Rx hydrocodone-acetaminop hen 5-325mg 1 tab PO Q6H PRN pain 3 days #10 07/01/23 Unknown Rx 5mg-325mg tabs clindamycin HCl 150 mg capsule 450 mg (3 x 150 mg) PO TID 7 days 12/30/23 Unknown Rx #63 CAPSULES hydrocodone-acetaminop hen 5-325mg 1 tab PO Q6H PRN PRN Pain 3 days 12/30/23 Unknown Rx 5mg-325mg #8 TABLETS cyclobenzaprine 5 mg tablet 5 mg PO TID PRN muscle spasm 4 03/20/24 Unknown Rx days #12 tabs lidocaine 5 % topical patch 1 patch topical DAILY #15 ea 03/20/24 Unknown Rx (Lidoderm) Allergy/AdvReac Type Severity Reaction Status Date / Time sulfamethoxazole (From Allergy Rash Verified 03/20/24 11:54 Sept) trimethoprim (From ) Allergy Rash Verified 03/20/24 11:54 meloxicam AdvReac Other Verified 03/20/24 11:54 Surgical History History of lumbar fusion Social History household members: none Smoking Status: Never smoker substance use type: does not use ROS ROS ED ROS Narrative Constitutional: Denies any fevers, chills, headaches, lightness, dizziness Eyes: Denies change in vision double vision blurry vision Cardiovascular: Denies chest pain or palpitations Respiratory: Denies coughing wheezing shortness of breath Abdomen: Denies abdominal pain nausea vomit diarrhea : Denies any urinary symptoms Neurological: Denies numbness, weakness, tingling Musculoskeletal: Complains of left rib pain as noted above Skin: Denies rashes or lesions EXAM Physical Exam Narrative Exam Narrative: General: Patient lying in bed rest comfortably did not appear to be in acute distress Head: Atraumatic, normocephalic Eyes: PERRL bilateral, EOMI bilateral no conjunctival injection noted Neck: Soft, supple, trachea midline, no tenderness palpation the midline of the cervical spine Cardiovascular: Regular rate and rhythm no murmurs gallops rubs noted Respiratory: Clear to auscultation bilaterally no rales rhonchi or wheezes noted Abdomen: Soft, nondistended, nontender to palpation, bowel sounds present x 4 Musculoskeletal: Patient has tenderness palpation over the left rib cage, no tenderness palpation the midline of the thoracolumbar spine no step-offs or deformities noted. Patient states that when she attempts to move her left shoulder her ribs are painful. All other bony prominences palpated and joints taken through full range of motion no pain elicited Extremities: +5/5 strength noted in the bilateral upper and lower extremities, radial pulses +2/4 in the bilateral upper extremities, no pedal edema on exam Neurological: Patient following commands knew that she was at [facility] year is 2023 Skin: Warm, dry, intact no rashes or lesions noted Const Vital Signs: 03/20/24 11:51 03/20/24 12:50 03/20/24 13:51 Temperature 96.7 F L Temperature Source Temporal Pulse Rate 78 65 Respiratory Rate 16 16 Respiratory Effort Normal Non-Labored Respiratory Depth Normal Respiratory Pattern Normal Blood Pressure 163/70 H 113/79 Blood Pressure Mean 101 90 Pulse Ox 100 96 98 Oxy (more content not included)... Normal [facility] Shoulder min 2 Viewson 03-20 Shoulder min 2 Views [facility] Imaging Services [address] [place] [address] [id number] Shoulder min 2 Views MR#: [id number] Acct: [id number] Name: RENATE INFANTE Rep #: [id number] : 1950 F 73 From: Festus schuster MD PCP: Dr. Frederic Luong MD Status: REG ER Study: Shoulder min 2 Views Date of Exam: 03/20/24 Exam# [id number] Ordering Dr: Yony Portillo DO [id number] STUDY: X-RAY - LEFT SHOULDER REASON FOR EXAM: Female, 73 years old. Fall shoulder pain TECHNIQUE: 4 view(s) of the shoulder. COMPARISON: None. FINDINGS: There is mild degenerative arthrosis of the glenohumeral articulation. There is degenerative arthrosis of the acromioclavicular joint without inferior osseous spur formation. Normal acromion. Normal humeral head and visualized proximal humerus. The soft tissue structures are unremarkable. Normal visualized pulmonary apex. RAD/Shoulder min 2 Views IMPRESSION: Mild degree of degenerative changes of the acromioclavicular joint and glenohumeral joint. Electronically Signed: Festus Solis MD at 14:01 EST Reading Location ID and State: [facility] / [place] , Service support , CC: Dr. Yony Portillo DO; Dr. Frederic Luong MD [employer] Accountant: Signed Normal [facility] Spine Cervical without Contr ason 03-20-2024 Spine Cervical without Contras [facility] Imaging Services [address] [place], [place] [address] Spine Cervical without Contras MR#: [id number] Acct: [id number] Name: RENATE INFANTE Rep #: [id number] : 1950 F 73 From: Festus schuster MD PCP: Dr. Frederic Luong MD Status: REG ER Study: Spine Cervical without Contras Date of Exam: 05/21/23 Exam# [id number] Ordering Dr: Yony Portillo DO [id number] STUDY: CT CERVICAL SPINE WITHOUT CONTRAST REASON FOR EXAM: Female, 73 years old. Neck pain following a fall. RADIATION DOSAGE (If Supplied By Facility): CTDIvol = ( 18.03 ) mGy, DLP = ( 268.48 ) mGycm TECHNIQUE: High resolution transaxial imaging was performed without contrast material. Sagittal and coronal images were reconstructed. Individualized dose optimization techniques were used for this CT. COMPARISON: None FINDINGS: Normal craniovertebral junction. Normal anterior atlantoaxial articulation. Normal odontoid process. There is straightening of the normal cervical lordosis. Normal vertebral bodies and posterior osseous elements. C2-3: Normal endplates. Normal disc height and morphology. Normal central canal and intervertebral neuroforamina. C3-4: Posterior central spondylosis causing deformity of the anterior aspect of the thecal sac and minimal narrowing of the AP diameter of the canal. C4-5: Marked degree of disc space narrowing. Spondylosis. Uncovertebral arthrosis. Mild degree of bilateral neural foraminal stenosis. C5-6: Marked in degree of disc space narrowing. Spondylosis. Uncovertebral arthrosis. Bilateral neural foraminal stenosis worse on the left side. C6-7: Normal endplates. Normal disc height and morphology. Normal central canal and intervertebral neuroforamina. C7-T1: Normal endplates. Normal disc height and morphology. Normal central canal and intervertebral neuroforamina. Normal visualized soft tissue structures. CT/Spine Cervical without Contras IMPRESSION: Multilevel degenerative changes, as described above. Electronically Signed: Festus Solis MD at 14:00 EST , CC: Dr. Yony Portillo, ; Dr. Frederic Luong MD Fixed Assets Accountant: Signed [facility]24 [facility] RENATE INFANTE I ([id number]) 1950 F Date Time Provider Department 01/23/24 FREDERIC LUONG INTMWS During your visit today, we recorded the following information about you: Lori Rausch LPN 01/23/2024 11:35 AM Signed Spoke to Renate, given results. Patient reports she is feeling much better, no blood or clots in urine, she will finish ATB as prescribed. Lori Rausch LPN Allergies As of Date: 01/23/2024 Noted Allergy Reaction MELOXICAM 10/21/2012 14 - Other: See Comments Comments: muscle tremors/spasms SEPTRA (SULFAMETHOXAZOLE-TRIM ETHO*06/04/2023 4 - Hives Date Reviewed: 01/21/2024 Reviewed by: Moon Feliz, AUTOMATIC MACHINES SUPERVISOR.EXCELLENCE SPECIALIST - Fully Assessed Reason for Visit: Results [95] Prescriptions as of 01/23/2024 - nitrofurantoin monohydrate and macrocrystal (MACROBID) 100 mg capsule Take 1 capsule by mouth two times a day with meals for 7 days. - naproxen sodium (ALEVE ORAL) Take by mouth. - IBUPROFEN ORAL Take by mouth. - alendronate (FOSAMAX) 70 mg tablet Take 1 tablet by mouth one time a week. Take with a full glass of water, on an empty stomach; do NOT lie down for 30minutes. - acetaminophen 650 mg CR tablet Take 650 mg by mouth every 8 hours as needed. Meds Comments as of 06/15/2010: Problem List As Of Date 01/23/2024 Noted Resolved Irritable Bowel Syndrome [K58.9] 11/21/2005 [...] (inconsistent) *05/05/2015 Age-related osteoporosis without current pathol*08/11/2022 History of colonic polyps [Z86.0100] 12/28/2022 Memory changes [R41.3] 06/04/2023 Encounter Status:Closed by LORI RAUSCH on 01/23/24 Normal [facility] Bacteria Ur Culton 4 Bacteria identified Cx Nom (U) ORGANISM ID: 1 >=100,000 CFU/ml Escherichia coli ORGANISM ID: 1 (ESCHERICHIA COLI) -- ANTIBIOTIC INTERPRETATION MEENU STATUS REFERENCE RANGE -- Ampicillin S 4 F Susceptible <=8 , Intermediate >8 , Resistant >16 Cefazolin S <=4 F Susceptible 0-16 , Intermediate <0 or >16 , Resistant >16 For uncomplicated urinary tract infections, cefazolin results can be used to predict susceptibility or resistance to cephalexin. Ceftriaxone S <=1 F Susceptible <=1 , Intermediate >1 , Resistant >=4 Cefepime S <=1 F Susceptible <=2 , Susceptible-Dose Dependent >2 , Resistant >=16 Ertapenem S <=0.5 F Susceptible <=0.5 , Intermediate >.5 , Resistant >1 Meropenem S <=0.25 F Susceptible <=1 , Intermediate >1 , Resistant >2 Ampicillin/Sulbact S <=2 F Susceptible <=8 , Intermediate >8 , Resistant >16 Piperacillin/Tazobac S <=4 F Susceptible <16 , Susceptible-Dose Dependent >=16 , Resistant >=32 Gentamicin S <=1 F Susceptible <=2 , Intermediate >2 , Resistant >=8 Tobramycin S <=1 F Susceptible <4 , Intermediate >=4 , Resistant >=8 Trimeth sulfameth S <=20 F Susceptible <=40 , Resistant >40 Ciprofloxacin S <=0.25 F Susceptible <0.5 , Intermediate >=.5 , Resistant >=1 Nitrofurantoin S <=16 F Susceptible <=32 , Intermediate >32 , Resistant >64 Abnormal [facility] Comment on above: Performed By: #### 6 30-4 ####[facility] [id number] [place] [address] [place] CBC panel Auto (Bld)on 01-20 Erythrocyte distribution width (RBC) [Ratio] 13.2 % 11.5 - 15.0 % [facility] Hematocrit (Bld) [Volume fraction] 38.2 % 36.0 - 46.0 % [facility] Hemoglobin (Bld) [Mass/Vol] 12.5 g/dL 11.5 - 15.5 g/dL [facility] Interpretation and review of laboratory results Abnormal [facility] MCH (RBC) [Entitic mass] 28.5 pg 26.0 - 34.0 pg [facility] MCHC (RBC) [Mass/Vol] 32.7 g/dL 30.5 - 36.0 g/dL [facility] MCV (RBC) [Entitic vol] 87.0 fL 80.0 - 100.0 fL [facility] Nucleated RBC (Bld) [#/Vol] NINF [facility] Platelet mean volume (Bld) [Entitic vol] 9.9 fL 9.0 - 12.7 fL [facility] Platelets (Bld) [#/Vol] 323 10*3/uL [facility] RBC (Bld) [#/Vol] 4.39 10*6/uL 3.90 - 5.2 0 m/uL [facility] WBC (Bld) [#/Vol] 11.71 10*3/uL [facility] Erythrocyte distribution width (RBC) [Ratio] 13.2 % Normal 11.5-15.0 [facility] Comment on above: Order Comment: Speci men Type: BLOOD SPECIMENOrdering Facility: [facility] Address: [address] [place] [address] Performed By: #### 5 8410-2 ####[facility] [id number] [address] [place] Hematocrit (Bld) [Volume fraction] 38.2 % Normal 36.0-46.0 [facility] Comment on above: Order Comment: Speci men Type: BLOOD SPECIMENOrdering Facility: [facility] Address: [address] [place] [address] Performed By: #### 5 8410-2 ####[facility] ERNCLIA [id number] [place] [address] [place] Hemoglobin (Bld) [Mass/Vol] 12.5 g/dL Normal 11.5-15.5 [facility] Comment on above: Order Comment: Speci men Type: BLOOD SPECIMENOrdering Facility: [facility] Address: [address] [place] [address] Performed By: #### 5 8410-2 ####[facility] [id number] [place] [address] [place] MCH (RBC) [Entitic mass] 28.5 pg Normal 26.0-34.0 [facility] Comment on above: Order Comment: Speci men Type: BLOOD SPECIMENOrdering Facility: [facility] Address: [address] [place] [address] Performed By: #### 5 8410-2 ####[facility] [id number] [place] [address] [place] MCHC (RBC) [Mass/Vol] 32.7 g/dL Normal 30.5-36.0 [facility] Comment on above: Order Comment: Speci men Type: BLOOD SPECIMENOrdering Facility: [facility] Address: [address] [place] [address] Performed By: #### 5 8410-2 ####[facility] [id number] [place] [address] [place] MCV (RBC) [Entitic vol] 87.0 fL Normal 80.0-100.0 [facility] Comment on above: Order Comment: Speci men Type: BLOOD SPECIMENOrdering Facility: [facility] Address: [address] [place] [address] Performed By: #### 5 8410-2 ####[facility] [id number] [place] [address] [place] Nucleated RBC (Bld) [#/Vol] 10*3/uL Normal <0.01 [facility] Comment on above: Order Comment: Speci men Type: BLOOD SPECIMENOrdering Facility: [facility] Address: [address] [place] [address] Performed By: #### 5 8410-2 ####[facility] [id number] [place] [address] [place] Platelet mean volume (Bld) [Entitic vol] 9.9 fL Normal 9.0-12.7 [facility] Comment on above: Order Comment: Speci men Type: BLOOD SPECIMENOrdering Facility: [facility] Address: [address] [place] [address] Performed By: #### 5 8410-2 ####[facility] [id number] [place] [address] [place] Platelets (Bld) [#/Vol] 323 10*3/uL Normal 150-400 [facility] Comment on above: Order Comment: Speci men Type: BLOOD SPECIMENOrdering Facility: [facility] Address: [address] [place] [address] Performed By: #### 5 8410-2 ####[facility] [id number] [place] [address] [place] RBC (Bld) [#/Vol] 4.39 10*6/uL Normal 3.90-5.20 [facility] Comment on above: Order Comment: Speci men Type: BLOOD SPECIMENOrdering Facility: [facility] Address: [address] [place] [address] Performed By: #### 5 8410-2 ####[facility] ERNCLIA [id number] [place] [address] [place] WBC (Bld) [#/Vol] 11.71 10*3/uL High 3.70-11.00 [facility] Comment on above: Order Comment: Speci men Type: BLOOD SPECIMENOrdering Facility: [facility] Address: [address] [place] [address] Performed By: #### 5 8410-2 ####[facility] STEFFANIE [facility] [id number] [address] [facility] CNOVon 01-21-2024 CNOV Office Visit (INTMWS ) RENATE INFANTE I ([id number]) 1950 F Date Time Provider Department 01/21/24 10:40 AM MOON FELIZ INTMWS During your visit today, we recorded the following information about you: Temperature Pulse Respiration Blood pressure 98.9 degrees 81/minute 14/minute 136/86 Weight 56.3 kg Moon Feliz, AUTOMATIC MACHINES SUPERVISOR.EXCELLENCE SPECIALIST 01/21/2024 11:05 AM Signed CC: Patient presents with: Hematuria: Since 3 am [facility] Renate Infante is a 73 year old female who presents with complaint of possible UTI. Patient reports she woke up around 3 am to urinate and noticed urine was bloody with multiple clots, persisting since then. Other associated symptoms: hesitancy, urgency, frequency, back pain, chills, and pelvic cramping with urination Denies: fever, abnormal vaginal discharge or bleeding, nausea, vomiting, black/bloody stools, rectal bleeding, history of kidney stones, taking blood thinners, history of smoking, recent respiratory illness/sore throat Treatments: naproxen with temporary relief PMH: Non-contributory Past surgical history: Non-contributory Review of Systems Respiratory: Negative for shortness of breath. Cardiovascular: Negative for chest pain, palpitations and leg swelling. Neurological: Negative for dizziness, syncope, weakness, light-headedness and headaches. Hematological: Negative for adenopathy. Does not bruise/bleed easily. PAST MEDICAL HISTORY Diagnosis Date Acute gastritis without mention of hemorrhage Age-related osteoporosis without current pathological fracture 08/11/2022 Allergic rhinitis, cause unspecified Anemia, unspecified 11/21/2005 Arthritis Benign neoplasm of colon Carpal tunnel syndrome [...] SPX 04/16/1987 Arthroscopy, knee, Dr. Griggs COLONOSCOPY 12/28/2022 repeat in 10 years COLONOSCOPY FLX DX W/COLLJ SPEC WHEN PFRMD 05/17/2003 Colonoscopy, Dr. Disla COLONOSCOPY FLX DX W/COLLJ SPEC WHEN PFRMD 05/23/2013 Colonoscopy COLSC FLX W/RMVL OF TUMOR POLYP LESION SNARE TQ 11/22/2007 EGD TRANSORAL BIOPSY SINGLE/MULTIPLE 05/10/2007 ESOPHAGOGASTRODUODENOS COPY TRANSORAL DIAGNOSTIC 09/14/1994 EGD INCISE FINGER TENDON SHEATH Right 08/31/2023 Right middle trigger finger release LAMINECTOMY W/O FFD 1/2 VERT SEG LUMBAR [...] W/REMOVAL TUBES/OV 04/16/2012 ALLERGIES Meloxicam and Septra [Sulfamethoxazole-Trim ethoprim] MEDICATIONS naproxen sodium (ALEVE ORAL) Take by mouth. IBUPROFEN ORAL Take by mouth. predniSONE (DELTASONE) 10 mg tablet TAKE BY MOUTH 4 TABLETS DAILY FOR 2 DAYS, THEN 3 TABLETS DAILY FOR 2 DAYS, THEN 2 TABLETS DAILY FOR 2 DAYS, THEN 1 TABLET DAILY FOR 2 DAYS. (Patient not taking: Reported on 08/27/2023) alendronate (FOSAMAX) 70 mg tablet Take 1 tablet by mouth one time a week. Take with a full glass of water, on an empty stomach; do NOT lie down for 30minutes. acetaminophen 650 mg CR tablet Take 650 [...] Never Smokeless tobacco: Never Vaping Use Vaping status: Never Used Substance Use Topics Alcohol use: Not Currently Drug use: No BP 136/86 Pulse 81 Temp 37.2 ?C (98.9 ?F) (Temporal) Resp 14 Wt 56.3 kg (124 lb 1.9 oz) LMP 07/03/2005 SpO2 95% BMI 22.70 kg/m? Physical Exam Vitals reviewed. Constitut (more content not included)... Normal [facility] Comprehensive metabolic 2000 panelOrdered By: Georgie Oliver on 01-21-2024 Albumin [Mass/Vol] 4.3 g/dL 3.9 - 4.9 g/dL [facility] ALP [Catalytic activity/Vol] 60 U/L 34 - 123 U/L [facility] ALT [Catalytic activity/Vol] 13 U/L 7 - 38 U/L [facility] Anion gap [Moles/Vol] 10 mmol/L 8 - 15 mmol/L [facility] AST [Catalytic activity/Vol] 16 U/L 13 - 35 U/L [facility] Bilirubin [Mass/Vol] 0.5 mg/dL 0.2 - 1 .3 mg/dL [facility] Calcium [Mass/Vol] 9.6 mg/dL 8.5 - 10. 2 mg/dL [facility] Chloride [Moles/Vol] 103 mmol/L 98 - 10 7 mmol/L [facility] CO2 [Moles/Vol] 25 mmol/L 22 - 30 mmol/L [facility] Creatinine [Mass/Vol] 0.70 mg/dL 0.58 - 0.96 mg/dL [facility] GFR/1.73 sq M.predicted among non-blacks MDRD (S/P/Bld) [Vol rate/Area] 93 mL/min/{1.73_m2} - PINF [facility] Comment on above: Estimated Glomerular Filtration Rate (eGFR) is calculated using the 2020 CKD-EPI creatinine equation. This equation utilizes serum creatinine, sex, and age as parameters. The creatinine assay has traceable calibration to isotope dilution-mass spectrometry. Refer to KDIGO guidelines for clinical interpretation. In patients with unstable renal function, e.g. those with acute kidney injury, the eGFR may not accurately reflect actual GFR. Glucose [Mass/Vol] 105 mg/dL High 74 - 99 mg/dL [facility] Comment on above: The [place] Diabete s Association (ADA) provides guidance for cutoff values for fasting glucose and random glucose. The ADA defines fasting as no caloric intake for at least 8 hours. Fasting plasma glucose results between 100 to 125 mg/dL indicate increased risk for diabetes (prediabetes). Fasting plasma glucose results greater than or equal to 126 mg/dL meet the criteria for diagnosis of diabetes. In the absence of unequivocal hyperglycemia, results should be confirmed by repeat testing. In a patient with classic symptoms of hyperglycemia or hyperglycemic crisis, random plasma glucose results greater than or equal to 200 mg/dL meet the criteria for diagnosis of diabetes. Reference: Standards of Medical Care in Diabetes 2016, [place] Diabetes Association. Diabetes Care. 2016.39(Suppl 1). Interpretation and review of laboratory results Abnormal [facility] Potassium [Moles/Vol] 4.2 mmol/L 3.7 - 5.1 mmol/L [facility] Protein [Mass/Vol] 7.0 g/dL 6.3 - 8.0 g/dL Cl [facility] Sodium [Moles/Vol] 138 mmol/L 136 - 144 mmol/L [facility] Urea nitrogen [Mass/Vol] 11 mg/dL 7 - 21 mg/dL [facility] Comprehensive metabolic 2000 panelon 01-21-2024 Albumin [Mass/Vol] 4.3 g/dL Normal 3.9-4.9 [facility] Comment on above: Order Comment: Speci men Type: BLOOD SPECIMENOrdering Facility: [facility] Address: [address] [place] [address] Performed By: #### 2 4323-8 ####[facility] STEFFANIEMOUNT ASCUTNEY HOSPITALWMOLIA [id number] [place] [address] [place] ALP [Catalytic activity/Vol] 60 U/L Normal 34-123 [facility] Comment on above: Order Comment: Speci men Type: BLOOD SPECIMENOrdering Facility: [facility] Address: [address] [place] [address] Performed By: #### 2 4323-8 ####[facility] [id number] [place] [address] [place] ALT [Catalytic activity/Vol] 13 U/L Normal 7-38 [facility] Comment on above: Order Comment: Speci men Type: BLOOD SPECIMENOrdering Facility: [facility] Address: [address] [place] [address] Performed By: #### 2 4323-8 ####[facility] ERNCLIA [id number] [place] [address] [place] Anion gap [Moles/Vol] 10 mmol/L Normal 8-15 [facility] Comment on above: Order Comment: Speci men Type: BLOOD SPECIMENOrdering Facility: [facility] Address: [address] [place] [address] Performed By: #### 2 4323-8 ####[facility]ENTER[facility] [id number] [place] [address] [place] AST [Catalytic activity/Vol] 16 U/L Normal 13-35 [facility] Comment on above: Order Comment: Speci men Type: BLOOD SPECIMENOrdering Facility: [facility] Address: [address] [place] [address] Performed By: #### 2 4323-8 ####[facility] MILLTOWNCLIA [id number] [place] [address] [place] Bilirubin [Mass/Vol] 0.5 mg/dL Normal 0.2-1.3 [facility] Comment on above: Order Comment: Speci men Type: BLOOD SPECIMENOrdering Facility: [facility] Address: [address] [place] [address] Performed By: #### 2 4323-8 ####[facility] MILLTOWNCLIA [id number] [place] [address] [place] Calcium [Mass/Vol] 9.6 mg/dL Normal 8.5-10.2 [facility] Comment on above: Order Comment: Speci men Type: BLOOD SPECIMENOrdering Facility: [facility] Address: [address] [place] [address] Performed By: #### 2 4323-8 ####[facility]ENTERWNCLIA [id number] [place] [address] [place] Chloride [Moles/Vol] 103 mmol/L Normal 98-107 [facility] Comment on above: Order Comment: Speci men Type: BLOOD SPECIMENOrdering Facility: [facility] Address: [address] [place] [address] Performed By: #### 2 4323-8 ####[facility] MILLTOWNCLIA [id number] [place] [address] [place] CO2 [Moles/Vol] 25 mmol/L Normal 22-30 [facility] Comment on above: Order Comment: Speci men Type: BLOOD SPECIMENOrdering Facility: [facility] Address: [address] [place] [address] Performed By: #### 2 4323-8 ####[facility] MILLTOWNCLIA [id number] [place] [address] [place] Creatinine [Mass/Vol] 0.70 mg/dL Normal 0.58-0.96 [facility] Comment on above: Order Comment: Marva gerardo Type: BLOOD SPECIMENOrdering Facility: [facility] Address: [address] [place] [address] Performed By: #### 2 4323-8 ####[facility] [id number] [address] Creatinine and Glomerular filtration rate.predicted panel (S/P/Bld) 93 mL/min/1.73m??? Normal >=60 [facility] Comment on above: Order Comment: Marva gerardo Type: BLOOD SPECIMENOrdering Facility: [facility] Address: [address] [place] [address] Result Comment: Babs mated Glomerular Filtration Rate (eGFR) is calculated using the 2020 CKD-EPI creatinine equation. This equation utilizes serum creatinine, sex, and age as parameters. The creatinine assay has traceable calibration to isotope dilution-mass spectrometry. Refer to KDIGO guidelines for clinical interpretation. In patients with unstable renal function, e.g. those with acute kidney injury, the eGFR may not accurately reflect actual GFR. Performed By: #### 2 4323-8 ####[facility] [id number] [place] [address] [place] Glucose [Mass/Vol] 105 mg/dL High 74-99 [facility] Comment on above: Order Comment: Marva gerardo Type: BLOOD SPECIMENOrdering Facility: [facility] Address: [address] [place] [address] Result Comment: The [place] Diabetes Association (ADA) provides guidance for cutoff values for fasting glucose and random glucose. The ADA defines fasting as no caloric intake for at least 8 hours. Fasting plasma glucose results between 100 to 125 mg/dL indicate increased risk for diabetes (prediabetes). Fasting plasma glucose results greater than or equal to 126 mg/dL meet the criteria for diagnosis of diabetes. In the absence of unequivocal hyperglycemia, results should be confirmed by repeat testing. In a patient with classic symptoms of hyperglycemia or hyperglycemic crisis, random plasma glucose results greater than or equal to 200 mg/dL meet the criteria for diagnosis of diabetes. Reference: Standards of Medical Care in Diabetes 2016, [place] Diabetes Association. Diabetes Care. 2016.39(Suppl 1). Performed By: #### 2 4323-8 ####[facility] [id number] [place] [address] [place] Potassium [Moles/Vol] 4.2 mmol/L Normal 3.7-5.1 [facility] Comment on above: Order Comment: Speci men Type: BLOOD SPECIMENOrdering Facility: [facility] Address: [address] [place] [address] Performed By: #### 2 4323-8 ####[facility] [id number] [place] [address] [place] Protein [Mass/Vol] 7.0 g/dL Normal 6.3-8.0 [facility] Comment on above: Order Comment: Speci men Type: BLOOD SPECIMENOrdering Facility: [facility] Address: [address] [place] [address] Performed By: #### 2 4323-8 ####[facility] [id number] [place] [address] [place] Sodium [Moles/Vol] 138 mmol/L Normal 136-144 [facility] Comment on above: Order Comment: Speci men Type: BLOOD SPECIMENOrdering Facility: [facility] Address: [address] [place] [address] Performed By: #### 2 4323-8 ####[facility] [id number] [place] [address] [place] Urea nitrogen [Mass/Vol] 11 mg/dL Normal 7-21 [facility] Comment on above: Order Comment: Speci men Type: BLOOD SPECIMENOrdering Facility: [facility] Address: [address] [place] [address] Performed By: #### 2 4323-8 ####[facility] [id number] [place] [address] [place] UA DIP, URINE (POC)on 2023 BILIRUBIN UA (POCT) Small Abnormal Negative [facility] CLARITY UA (POCT) Slightly Cloudy Cl [facility] COLOR UA (POCT) Red [facility] GLUCOSE UA (POCT) Negative Negative mg/dL [facility] Hemoglobin Ql (U) Large Abnormal Negative [facility] Interpretation and review of laboratory results Abnormal [facility] KETONE UA (POCT) Negative Negative mg/dL [facility] LEUKOCYTES UA (POCT) Large Abnormal Negative [facility] NITRITE UA (POCT) Positive Abnormal Negative [facility] PH UA (POCT) 7.0 4.5 - 8.0 [facility] Protein Ql (U) >=300 Abnormal Negative mg/dL [facility] SPECIFIC GRAVITY UA (POCT) 1.020 1.005 - 1.030 [facility] UROBILINOGEN UA (POCT) 1.0 Normal E.U./dL [facility] Location:[address], [address] [place] [address] POINT OF CARE [facility] Urinalysis complete panel (U )on 01-21-2024 Bacteria LM.HPF (Urine sed) [#/Area] Few Abnormal None Seen [facility] Comment on above: Order Comment: Speci men Type: URINE SPECIMENOrdering Facility: [facility] Address: [address] [place] [address] Performed By: #### 2 4356-8 ####[facility] LABCLIA [id number] [place] [address] [place] Bilirubin Ql (U) 1+ Abnormal Negative [facility] Comment on above: Order Comment: Speci men Type: URINE SPECIMENOrdering Facility: [facility] Address: [address] [place] [address] Result Comment: Sugg est correlation with clinical findings and serum bilirubin if clinically indicated. Performed By: #### 2 4356-8 ####[facility] LABCLIA [id number] [place] [address] [place] Clarity (Unsp spec) Turbid Abnormal Clear [facility] Comment on above: Order Comment: Speci men Type: URINE SPECIMENOrdering Facility: [facility] Address: [address] [place] [address] Performed By: #### 2 4356-8 ####[facility] LABCLIA [id number] [place] [address] [place] Color (U) Red Abnormal Yellow [facility] Comment on above: Order Comment: Speci men Type: URINE SPECIMENOrdering Facility: [facility] Address: [address] [place] [address] Performed By: #### 2 4356-8 ####[facility] LABCLIA [id number] [place] [address] [place] Glucose Test strip (U) [Mass/Vol] Negative Normal Negative [facility] Comment on above: Order Comment: Speci men Type: URINE SPECIMENOrdering Facility: [facility] Address: [address] [place] [address] Performed By: #### 2 4356-8 ####[facility] LABCLIA [id number] [place] [address] [place] Hemoglobin Ql (U) 3+ Abnormal Negative [facility] Comment on above: Order Comment: Speci men Type: URINE SPECIMENOrdering Facility: [facility] Address: [address] [place] [address] Performed By: #### 2 4356-8 ####[facility] LABCLIA [id number] [place] [address] [place] Ketones Ql (U) Trace Abnormal Negative [facility] Comment on above: Order Comment: Speci men Type: URINE SPECIMENOrdering Facility: [facility] Address: [address] [place] [address] Performed By: #### 2 4356-8 ####[facility] LABCLIA [id number] [place] [address] [place] Leukocyte esterase Test strip Ql (U) 2+ Abnormal Negative [facility] Comment on above: Order Comment: Speci men Type: URINE SPECIMENOrdering Facility: [facility] Address: [address] [place] [address] Performed By: #### 2 4356-8 ####[facility] LABCLIA [id number] [place] [address] [place] Nitrite Ql (U) Positive Abnormal Negative [facility] Comment on above: Order Comment: Speci men Type: URINE SPECIMENOrdering Facility: [facility] Address: [address] [place] [address] Performed By: #### 2 4356-8 ####[facility] LABIA [id number] [place] [address] [place] pH (U) 7.0 [pH] Normal 5.0-8.0 [facility] Comment on above: Order Comment: Speci men Type: URINE SPECIMENOrdering Facility: [facility] Address: [address] [place] [address] Performed By: #### 2 4356-8 ####[facility] LABCLIA [id number] [place] [address] [place] Protein (U) [Mass/Vol] 2+ Abnormal Negative [facility] Comment on above: Order Comment: Speci men Type: URINE SPECIMENOrdering Facility: [facility] Address: [address] [place] [address] Performed By: #### 2 4356-8 ####[facility] LABCLIA [id number] [place] [address] [place] RBC LM.HPF (Urine sed) [#/Area] /[HPF] Abnormal 0-3 /HPF [facility] Comment on above: Order Comment: Speci men Type: URINE SPECIMENOrdering Facility: [facility] Address: [address] [place] [address] Performed By: #### 2 4356-8 ####[facility] LABIA [id number] [place] [address] [place] Specific gravity (U) [Rel density] 1.015 Normal 1.005-1.030 [facility] Comment on above: Order Comment: Speci men Type: URINE SPECIMENOrdering Facility: [facility] Address: [address] [place] [address] Performed By: #### 2 4356-8 ####[facility] LABIA [id number] [place] [address] [place] Urobilinogen Ql (U) 1.0 EU/dL Normal 0.2-1.0 EU/dL [facility] Comment on above: Order Comment: Speci men Type: URINE SPECIMENOrdering Facility: [facility] Address: [address] [place] [address] Performed By: #### 2 4356-8 ####[facility] LABIA [id number] [place] [address] [place] WBC LM.HPF (Urine sed) [#/Area] /[HPF] Abnormal 0-5 /HPF [facility] Comment on above: Order Comment: Speci men Type: URINE SPECIMENOrdering Facility: [facility] Address: [address] [place] [address] Performed By: #### 2 4356-8 ####[facility] LABIA [id number] [place] [address] [place] Emergency Department Summary on 12-30-2023 Emergency Department Summary [facility] Medical Records Department [address] [place] [address] Emergency Department Summary 12/30/23 MR#: [id number] Acct: [id number] Name: RENATE INFANTE Rep #: [id number] : 1950 73 From: Parmjit Bingham DO PCP: Dr. Frederic Luong MD Status:REG ER Location: ED HPI History of Present Illness Chief Complaint: Dental Narrative Narrative: Patient is a 73-year-old female with history of right lower jaw swelling, right sided tooth pain. Patient states she has had pain for the last week, worsening swelling the last 2 days. She did go to urgent care yesterday, she was placed on amoxicillin. Patient states that the swelling got worse today, the pain is getting worse, she is here for evaluation. She does see [facility] however they will not take her until the swelling goes down. Patient denies any fever chills nausea or vomiting. Narrative Narrative: Patient is a 73-year-old female with history of right lower jaw swelling, right sided tooth pain. Patient states she has had pain for the last week, worsening swelling the last 2 days. She did go to urgent care yesterday, she was placed on amoxicillin. Patient states that the swelling got worse today, the pain is getting worse, she is here for evaluation. She does see [facility] however they will not take her until the swelling goes down. Patient denies any fever chills nausea or vomiting. Patient denies trismus, difficulty swallowing, drooling, throat tightness or chest tightness. [facility] Medical History (Updated 12/30/23 @ 17:40 by OSCAR Hodgson) Osteoporosis Home Medications ???Medication ???Instructions ???Recorded ???Last Taken ???Type ketorolac 0.5 % eye drops 1 drp LEFT EYE Q6H 08/12/21 Unknown History ofloxacin 0.3 % eye drops 1 drp LEFT EYE Q6H 08/12/21 Unknown History cyclobenzaprine 10 mg tablet 10 mg PO TID PRN Muscle Spasm #20 07/15/22 Unknown Rx TABLETS ibuprofen 600 mg tablet 600 mg PO Q8H PRN pain #30 TABLETS 07/15/22 Unknown Rx hydrocodone-acetaminop hen 5-325mg 1 tab PO Q6H PRN pain 3 days #10 07/01/23 Unknown Rx 5mg-325mg tabs clindamycin HCl 150 mg capsule 450 mg (3 x 150 mg) PO TID 7 days 12/30/23 Unknown Rx #63 CAPS[place]ES hydrocodone-acetaminop hen 5-325mg 1 tab PO Q6H PRN PRN Pain 3 days 12/30/23 Unknown Rx 5mg-325mg #8 TABLETS Allergy/AdvReac Type Severity Reaction Status Date / Time sulfamethoxazole (From Allergy Rash Verified 12/30/23 16:26 Sept) trimethoprim (From ) Allergy Rash Verified 12/30/23 16:26 meloxicam AdvReac Other Verified 12/30/23 16:26 Surgical History (Updated 10/09/23 @ 14:[address] Sonny Terrazas, DO) History of lumbar fusion Social History household members: none Smoking Status: Never smoker substance use type: does not use ROS ROS ED ROS Narrative Constitutional: Negative for fever, chills, weight loss, weakness Eyes: Negative for vision loss, vision change, double vision ENT: Negative for any sore throat, ear pain, congestion. Positive for left lower jaw swelling Cardiovascular: Negative for any chest pain, tightness, palpitations Respiratory: Negative for any cough, sputum production, hemoptysis, dyspnea, dyspnea on exertion, orthopnea Gastrointestinal: Negative for any abdominal pain, nausea, vomiting, diarrhea, constipation, blood in stool, blood in vomit : Negative for any urinary frequency, dysuria, retention, blood in urine Muscle skeletal: Negative for any neck pain, back pain Neurological: Negative for any headache, syncope, dizziness Skin: Negative for any rashes, itching, abrasions, lacerations Psychiatric: Negative for any depression, anxiety, stress, suicidal ideation, homicidal ideation Hematologic: Negative for any excessive bruising, easy bleeding EXAM Physical Exam Narrative Exam Narrative: Vital signs reviewed. HEET: Head normocephalic atraumatic, TMs clear bilaterally. Posterior pharynx is clear, moist mucous membranes. Nares clear bilaterally. No evidence of any pj wigs angina, patient has no trismus. Patient does have poor dentition of the lower jaw. There is multiple teeth that are broken, different levels of decay. Neck: Supple with no lymphadenopathy or tenderness. No signs of meningismus. Cardiac: Regular rate and rhythm no murmurs gallops or rubs, equal peripheral pulses bilaterally. Respiratory: Lungs clear to auscultation bilaterally. No chest tenderness. Abdomen: Soft, nontender, nondistended. No abdominal bruit or pulsatile masses. No hepatosplenomegaly Extremities: No peripheral edema, no signs of gross trauma or deformity. Active full range of motion of all extremities. Neuro: Cranial nerves II through XII intact, no focal neurological deficits. Skin: Clean dry and intact with no rash, (more content not included)... Normal [facility] CNOVon 12-29-2023 CNOV Office Visit (UCWSTR ) RENATE INFANTE I ([id number]) 1950 F Date Time Provider Department 12/29/23 10:00 AM AGUS [facility] During your visit today, we recorded the following information about you: Temperature Pulse Respiration Blood pressure 98.1 degrees 74/minute 16/minute 110/74 Weight 56.9 kg Agus Garcia APRN.EXCELLENCE SPECIALIST 12/29/2023 10:15 AM Signed Subjective Patient came in with complaints of right lower tooth pain. Patient says she has significant trouble with most of her teeth. Patient says this is not the first tooth infection she has had. Patient has called the dentist but they are 2 weeks out. Patient denies fever chills nausea vomiting. Dental Problem Review of Systems Constitutional: Negative. Skin: Negative. Objective Physical Exam Constitutional: Appearance: Normal appearance. HENT: Mouth/Throat: Comments: Patient has significant dental caries throughout. Area marked above is where she is having pain and there is a tooth with 7/8 of it missing. No signs of dental abscess swelling or drainage. Pulmonary: Effort: Pulmonary effort is normal. Neurological: Mental Status: She is alert. PAST MEDICAL HISTORY Diagnosis Date Acute gastritis without mention of hemorrhage Age-related osteoporosis without current pathological fracture 08/11/2022 Allergic rhinitis, cause unspecified Anemia, unspecified 11/21/2005 Arthritis Benign neoplasm of colon Carpal tunnel syndrome [...] SPX 04/16/1987 Arthroscopy, knee, Dr. Griggs COLONOSCOPY 12/28/2022 repeat in 10 years COLONOSCOPY FLX DX W/COLLJ SPEC WHEN PFRMD 05/17/2003 Colonoscopy, Dr. Disla COLONOSCOPY FLX DX W/COLLJ SPEC WHEN PFRMD 05/23/2013 Colonoscopy COLSC FLX W/RMVL OF TUMOR POLYP LESION SNARE TQ 11/22/2007 EGD TRANSORAL BIOPSY SINGLE/MULTIPLE 05/10/2007 ESOPHAGOGASTRODUODENOS COPY TRANSORAL DIAGNOSTIC 09/14/1994 EGD INCISE FINGER TENDON SHEATH Right 08/31/2023 Right middle trigger finger release LAMINECTOMY W/O FFD 1/2 VERT SEG LUMBAR [...] W/REMOVAL TUBES/OV 04/16/2012 ALLERGIES Meloxicam and Septra [Sulfamethoxazole-Trim ethoprim] MEDICATIONS naproxen sodium (ALEVE ORAL) Take by mouth. IBUPROFEN ORAL Take by mouth. alendronate (FOSAMAX) 70 mg tablet Take 1 tablet by mouth one time a week. Take with a full glass of water, on an empty stomach; do NOT lie down for 30minutes. acetaminophen 650 mg CR tablet Take 650 mg by mouth every 8 hours as needed. amoxicillin (AMOXIL) 875 mg tablet Take 1 tablet by mouth two times a day for 7 days. predniSONE (DELTASONE) 10 mg tablet TAKE BY MOUTH 4 TABLETS DAILY FOR 2 DAYS, THEN 3 TABLETS DAILY FOR 2 DAYS, THEN 2 TABLETS DAILY FOR 2 DAYS, THEN 1 TABLET DAILY FOR 2 DAYS. (Patient not taking: Reported on 08/27/2023) FAMILY HISTORY Problem Relation Age of Onset Hypertension Mother Diabetes Mother Heart Mother Congestive Heart Failure Cataract Mother COPD Father of COPD Coronary Artery Disease Father Heart Father Cataract Sister Cataract Brother Cataract Brother Asthma Brother 2 brothers Cancer Brother metastatic, etiol? Social History Tobacco Use Smoking status: Never Smokeless tobacco: Never Vaping Use Vaping status: Never Used Substance Use Topics Alcohol use: Not Currently Drug use: No ASSESSMENT/PLAN: 1. Pain, dental - ICD9: 525.9, ICD10: K08.89 - AMOXICILLIN 875 MG TABLET Patient was educated about proper use of medication supportive therapies. Patient was educated about red flag symptoms to watch for. Patient is maylin follow-up with her dentist. Patient was okay with this care plan. Shelby Tran (more content not included)... Normal [facility] OPERATIVE NOon 08-31-2023 OPERATIVE NO HNO ID: [id number] Author: PJ RYAN MD Service: Orthopaedic Surgery Author Type: Physician Type: Operative Report Filed: 08/31/2023 12:45 Note Text: OPERATIVE/PROCEDURE REPORT LOG ID: [id number] Surgery/Procedure Date: 08/31/2023 Incision/Procedure Start Time: 11:17 AM Incision Close/Procedure End Time: 11:26 AM Surgeon(s)/Procedurali st(s) and [employer] Consultant(s): Surgeon(s) and Role: * Pj Ryan MD - Primary Physician [employer] Consultant: Lizz Bo PA-C Procedure(s): right middle trigger release. Anesthesia: Local. Procedure Details: On 08/31/2023, the patient was clearly identified in the preoperative area and marked accordingly on the right middle by myself. After a chloroprep swab, Local anesthetic was provided at the base of the middle near the A1 yo site for a total of 2 mL of 1% lidocaine with Epinephrine. Patient was taken to the operative suite and placed in the supine position with an arm board on the right. All other bony landmarks were appropriately padded in standard fashion. The right upper extremity was sterilely prepped and draped in standard fashion. An appropriate time-out was conducted and all in the room were in agreement, signed consent form was on the chart. An incision was made over the A1 yo of the middle. This was done superficially with a 15 blade and blunt dissection was taken down longitudinally to the flexor apparatus. The digital nerves were clearly identified and protected throughout the case with Crile retractors. Under direct visualization, I divided the A1 yo site of the middle with a 15 blade. There was obvious tenosynovitis and a slight synovectomy was made with Littler scissors. She was immediately able to fully extend the finger despite it being locked for so long. Full, tight, fist formation without any locking or catching, confirming its complete release. The wound was copiously irrigated. Hemostasis was observed with bipolar electrocautery. Closure was done with 4-0 Nylon sutures in horizontal mattress fashion for a total of 2. Xeroform gauze, an eye patch, light Lynette wrap and Coban was used for final bandage. There were no complications during the procedure. Patient was safely awoken and transferred to the Postanesthetic Care Unit in stable condition. Pre-Op/Pre-Procedure Diagnosis: right middle trigger finger Post-Op/Post-Procedure Diagnosis: right middle trigger finger. Estimated Blood Loss: None Specimens: None Implantable Devices: None Drains: None Complications: None The primary surgeon/proceduralist performed the entire procedure. SIGNATURE: Pj Ryan MD PATIENT NAME: Renate Infante DATE: August 31, 2023 TIME: 12:43 PM PAGER/CONTACT #: Normal [facility] COLONOSCOPY SCREENINGon 12-15 [facility] BEULAH SCREENINGon 08-01-2022 [facility] XR Knee - right 4 Viewson IMPRESSION: Right knee degenerative changes and chondrocalcinosis. Osteopenia. Joint effusion. No acute osseous abnormality. Fixed Ass[employer] Accountant: CLYDE Transcribe Date/Time: Jul 14 2022 6:11A Dictated by : ISABELLE MORELAND MD This examination was interpreted and the report reviewed and electronically signed by: ISABELLE MORELAND MD on Jul 14 2022 6:12AM [facility] DIVISION OF RADIOLOGY * * *Final Report* * * DATE OF EXAM: Jul 13 2022 1:21PM WOX 5203 - XR KNEE 4V AP/PA BOTH+LAT/JENNIFER RT / PROCEDURE REASON: Acute leg pain, right * * * * Physician Interpretation * * * * HISTORY: Acute leg pain, right . Worsening right hip and right knee pain that began 4 weeks ago with no known injury, patient awoke to the pain one morning. TECHNIQUE: XR KNEE 4V AP/PA BOTH+LAT/JENNIFER RT Laterality: RIGHT Number of different views (projections): 4 COMPARISON: None RESULT: Right knee: Osteopenia. No acute fracture or dislocation. Tricompartmental osteophytes. Mild medial and moderate lateral compartment narrowing with chondrocalcinosis. Rounded lucencies underlying the tibial spines which may represent subchondral reactive cysts. Small to moderate joint effusion. Left knee: Included images of left knee demonstrate small tricompartmental osteophytes. DIVISION OF RADIOLOGY Provider, [facility] - 07/14/2022 * * *Final Report* * * DATE OF EXAM: Jul 13 2022 1:21PM WOX 5203 - XR KNEE 4V AP/PA BOTH+LAT/JENNIFER RT / PROCEDURE REASON: Acute leg pain, right * * * * Physician Interpretation * * * * HISTORY: Acute leg pain, right . Worsening right hip and right knee pain that began 4 weeks ago with no known injury, patient awoke to the pain one morning. TECHNIQUE: XR KNEE 4V AP/PA BOTH+LAT/JENNIFER RT Laterality: RIGHT Number of different views (projections): 4 COMPARISON: None RESULT: Right knee: Osteopenia. No acute fracture or dislocation. Tricompartmental osteophytes. Mild medial and moderate lateral compartment narrowing with chondrocalcinosis. Rounded lucencies underlying the tibial spines which may represent subchondral reactive cysts. Small to moderate joint effusion. Left knee: Included images of left knee demonstrate small tricompartmental osteophytes. IMPRESSION IMPRESSION: Right knee degenerative changes and chondrocalcinosis. Osteopenia. Joint effusion. No acute osseous abnormality. [employer] Ass[employer] Accountant: CLYDE Transcribe Date/Time: Jul 14 2022 6:11A Dictated by : ISABELLE MORELAND MD This examination was interpreted and the report reviewed and electronically signed by: ISABELLE MORELAND MD on Jul 14 2022 6:12AM EST [facility] XR Pelvis and Hip - right AP and Lateral frogon 07-14-2022 IMPRESSION: Osteopenia. No acute osseous abnormality. Degenerative changes and chondrocalcinosis. Nonspecific subcentimeter calcification overlying the subtrochanteric right femur laterally. Fixed Assets Accountant: PSCB Transcribe Date/Time: Jul 14 2022 6:08A Dictated by : ISABELLE MORELAND MD This examination was interpreted and the report reviewed and electronically signed by: ISABELLE MORELAND MD on Jul 14 2022 6:11AM EST DIVISION OF RADIOLOGY * * *Final Report* * * DATE OF EXAM: Jul 13 2022 1:21PM WOX 5352 - XR HIP 3V PELV+ AP/LAT RT / PROCEDURE REASON: Acute leg pain, right * * * * Physician Interpretation * * * * HISTORY: Acute leg pain, right . Worsening right hip and right knee pain that began 4 weeks ago with no known injury, patient awoke to the pain one morning. TECHNIQUE: XR HIP 3V PELV+ AP/LAT RT Laterality: RIGHT Number of different views (projections): 3 COMPARISON: None RESULT: Osteopenia. No acute fracture or dislocation. Right hip joint space is maintained with marginal and collar osteophytes suspicion of chondrocalcinosis. Left hip joint space is maintained with small superior acetabular osteophyte and probable chondrocalcinosis. Pubic symphysis is maintained with chondrocalcinosis. Sacroiliac joints are maintained bilaterally with small osteophytes. Degenerative changes of the included lower lumbar spine. Bilateral pelvic and greater trochanteric enthesopathy. Nonspecific subcentimeter calcification is seen about the lateral aspect of the subtrochanteric right femur. DIVISION OF RADIOLOGY Provider, [facility] - 07/14/2022 * * *Final Report* * * DATE OF EXAM: Jul 13 2022 1:21PM WOX 5352 - XR HIP 3V PELV+ AP/LAT RT / PROCEDURE REASON: Acute leg pain, right * * * * Physician Interpretation * * * * HISTORY: Acute leg pain, right . Worsening right hip and right knee pain that began 4 weeks ago with no known injury, patient awoke to the pain one morning. TECHNIQUE: XR HIP 3V PELV+ AP/LAT RT Laterality: RIGHT Number of different views (projections): 3 COMPARISON: None RESULT: Osteopenia. No acute fracture or dislocation. Right hip joint space is maintained with marginal and collar osteophytes suspicion of chondrocalcinosis. Left hip joint space is maintained with small superior acetabular osteophyte and probable chondrocalcinosis. Pubic symphysis is maintained with chondrocalcinosis. Sacroiliac joints are maintained bilaterally with small osteophytes. Degenerative changes of the included lower lumbar spine. Bilateral pelvic and greater trochanteric enthesopathy. Nonspecific subcentimeter calcification is seen about the lateral aspect of the subtrochanteric right femur. IMPRESSION IMPRESSION: Osteopenia. No acute osseous abnormality. Degenerative changes and chondrocalcinosis. Nonspecific subcentimeter calcification overlying the subtrochanteric right femur laterally. Fixed Assets Accountant: [facility] Transcribe Date/Time: Jul 14 2022 6:08A Dictated by : ISABELLE MORELAND MD This examination was interpreted and the report reviewed and electronically signed by: ISABELLE MORELAND MD on Jul 14 2022 6:11AM EST [facility] XR Pelvis and Hip - right AP and Lateral frogOrdered By: [facility] Provider on 07-14-2022 [facility] CBC panel Auto (Bld)on 07-13 Erythrocyte distribution width (RBC) [Ratio] 13.1 % 11.5 - 15.0 % [facility] Hematocrit (Bld) [Volume fraction] 40.7 % 36.0 - 46.0 % [facility] Hemoglobin (Bld) [Mass/Vol] 13.1 g/dL 11.5 - 15.5 g/dL [facility] MCH (RBC) [Entitic mass] 28.2 pg 26.0 - 34.0 pg [facility] MCHC (RBC) [Mass/Vol] 32.2 g/dL 30.5 - 36.0 g/dL [facility] MCV (RBC) [Entitic vol] 87.5 fL 80.0 - 100.0 fL [facility] Nucleated RBC (Bld) [#/Vol] <0.01 k/uL [facility] Platelet mean volume (Bld) [Entitic vol] 9.9 fL 9.0 - 12.7 fL [facility] Platelets (Bld) [#/Vol] 363 10*3/uL 150 - 400 k/uL [facility] RBC (Bld) [#/Vol] 4.65 10*6/uL 3.90 - 5.2 0 m/uL [facility] WBC (Bld) [#/Vol] 9.45 10*3/uL 3.70 - 11. 00 k/uL [facility] No Panel Informationon 07-13 Radiology Study observation (narrative) [facility] XR HAND GENERAL 3V PA/LAT/OB L LEFTon 03-31-2022 [facility] XR Hand - left PA and Latera l and Obliqueon 03-31-2022 IMPRESSION: No acute bony abnormality. Soft tissue laceration dorsally. [employer] Ass[employer] Accountant: CLYDE Transcribe Date/Time: Mar 31 2022 11:33A Dictated by : Andrew BUSBY MD This examination was interpreted and the report reviewed and electronically signed by: Andrew BUSBY MD on Mar 31 2022 11:36AM [facility] DIVISION OF RADIOLOGY * * *Final Report* * * DATE OF EXAM: Mar 31 2022 11:25AM WOX 5345 - XR HAND 3V PA/LAT/OBL LT / PROCEDURE REASON: Pain * * * * Physician Interpretation * [...] at left thumb basal joint. No erosions. DIVISION OF RADIOLOGY Provider, [facility] - 03/31/2022 * * *Final Report* * * DATE OF EXAM: Mar 31 2022 11:25AM WOX 5345 - XR HAND 3V PA/LAT/OBL LT / PROCEDURE REASON: Pain * * * * Physician Interpretation * [...] acute bony abnormality. Soft tissue laceration dorsally. [employer] Accountant: PSCB Transcribe Date/Time: Mar 31 2022 11:33A Dictated by : Andrew BUSBY MD This examination was interpreted and the report reviewed and electronically signed by: Andrew BUSBY MD on Mar 31 2022 11:36AM EST [facility] Radiology Study observation (narrative) [facility] XR Hand - left PA and Latera l and ObliqueOrdered By: [facility] Provider on 03-31-2022 [facility] CBC W Auto Differential pane l (Bld)on 01-06-2022 Abs Immature Gran <0.10 k/uL [facility] Basophils (Bld) [#/Vol] 0.07 10*3/uL <0.11 k/uL [facility] Basophils/100 WBC (Bld) 1.0 % [facility] Differential cell count method Nom (Bld) Auto [facility] Eosinophils (Bld) [#/Vol] 0.25 10*3/uL <0.46 k/uL [facility] Eosinophils/100 WBC (Bld) 3.6 % [facility] Erythrocyte distribution width (RBC) [Ratio] 12.7 % 11.5 - 15.0 % [facility] Hematocrit (Bld) [Volume fraction] 40.0 % 36.0 - 46.0 % [facility] Hemoglobin (Bld) [Mass/Vol] 12.5 g/dL 11.5 - 15.5 g/dL [facility] Immature Gran % 0.3 % [facility] Lymphocytes (Bld) [#/Vol] 2.69 10*3/uL 1.00 - 4.00 k/uL [facility] Lymphocytes/100 WBC (Bld) 39.2 % [facility] MCH (RBC) [Entitic mass] 27.8 pg 26.0 - 34.0 pg [facility] MCHC (RBC) [Mass/Vol] 31.3 g/dL 30.5 - 36.0 g/dL [facility] MCV (RBC) [Entitic vol] 88.9 fL 80.0 - 100.0 fL [facility] Monocytes (Bld) [#/Vol] 0.40 10*3/uL <0.87 k/uL [facility] Monocytes/100 WBC (Bld) 5.8 % [facility] Neutrophils (Bld) [#/Vol] 3.43 10*3/uL 1.45 - 7.50 k/uL [facility] Neutrophils/100 WBC (Bld) 50.1 % [facility] Nucleated RBC (Bld) [#/Vol] <0.01 k/uL [facility] Nucleated RBC/100 WBC (Bld) [Ratio] 0.0 /100 WBC [facility] Platelet mean volume (Bld) [Entitic vol] 9.4 fL 9.0 - 12.7 fL [facility] Platelets (Bld) [#/Vol] 343 10*3/uL 150 - 400 k/uL [facility] RBC (Bld) [#/Vol] 4.50 10*6/uL 3.90 - 5.2 0 m/uL [facility] WBC (Bld) [#/Vol] 6.86 10*3/uL 3.70 - 11. 00 k/uL [facility] XR Knee - right 4 Viewson IMPRESSION: No acute osseous abnormality. Moderate lateral compartment osteoarthritis RIGHT knee. Chondrocalcinosis. Fixed Assets Accountant: CLYDE Transcribe Date/Time: Nov 17 2021 2:36P Dictated by : JOANNA TREVIÑO DO This examination was interpreted and the report reviewed and electronically signed by: JOANNA TREVIÑO DO on Nov 17 2021 2:40PM EST [email or web address]__[email or web address] _DIVISION OF RADIOLOGY * * *Final Report* * * DATE OF EXAM: Nov 17 2021 2:30PM WOX 5203 - XR KNEE 4V AP/PA BOTH+LAT/JENNIFER RT / PROCEDURE REASON: Acute pain of right knee * * * * Physician Interpretation * * * * EXAMINATION: XR KNEE 4V AP/PA BOTH+LAT/JENNIFER RT PATIENT/TECHNOLOGIST PROVIDED HISTORY: acute right knee pain after injury CLINICAL INFORMATION: 71 years old Female with Acute pain of right knee. Hyperexteneded knee, pain lateral/posterio. TECHNIQUE: XR KNEE 4V AP/PA BOTH+LAT/JENNIFER RT Laterality: RIGHT Number of different views (projections): 4 COMPARISON: Radiographs 07/21/2014 RESULT: No fracture. No joint effusion. Tricompartmental osteophytes with moderate lateral compartment joint space narrowing. Genu valgus. Extensive medial and lateral compartment chondrocalcinosis with extrusion of the medial compartment chondrocalcinosis. [email or web address]_USE _DIVISION OF RADIOLOGY Provider, [facility] - 11/17/2021 * * *Final Report* * * DATE OF EXAM: Nov 17 2021 2:30PM WOX 5203 - XR KNEE 4V AP/PA BOTH+LAT/JENNIFER RT / PROCEDURE REASON: Acute pain of right knee * * * * Physician Interpretation * * * * EXAMINATION: XR KNEE 4V AP/PA BOTH+LAT/JENNIFER RT PATIENT/TECHNOLOGIST PROVIDED HISTORY: acute right knee pain after injury CLINICAL INFORMATION: 71 years old Female with Acute pain of right knee. Hyperexteneded knee, pain lateral/posterio. TECHNIQUE: XR KNEE 4V AP/PA BOTH+LAT/JENNIFER RT Laterality: RIGHT Number of different views (projections): 4 COMPARISON: Radiographs 07/21/2014 RESULT: No fracture. No joint effusion. Tricompartmental osteophytes with moderate lateral compartment joint space narrowing. Genu valgus. Extensive medial and lateral compartment chondrocalcinosis with extrusion of the medial compartment chondrocalcinosis. IMPRESSION IMPRESSION: No acute osseous abnormality. Moderate lateral compartment osteoarthritis RIGHT knee. Chondrocalcinosis. Fixed Assets Accountant: CLYDE Transcribe Date/Time: Nov 17 2021 2:36P Dictated by : JOANNA TREVIÑO DO This examination was interpreted and the report reviewed and electronically signed by: JOANNA TREVIÑO DO on Nov 17 2021 2:40PM EST [facility] Radiology Study observation (narrative) [facility] XR Knee - right 4 ViewsOrder ed By: Cc Provider on 11-17-2021 [facility] XR CHEST 2V FRONTAL/LATon [facility] XR Chest PA and Lateralon IMPRESSION: No acute radiographic abnormality. Fixed Assets Accountant: CLYDE Transcribe Date/Time: Jul 05 2021 10:40A Dictated by : ABBIE MUNOZ MD This examination was interpreted and the report reviewed and electronically signed by: ABBIE MUNOZ MD on Jul 05 2021 10:41AM EST DIVISION OF RADIOLOGY * * *Final Report* * * DATE OF EXAM: Jul 05 2021 10:30AM WOX 5291 - XR CHEST 2V FRONTAL/LAT / PROCEDURE REASON: Cough * * * * Physician Interpretation * * * * EXAMINATION: CHEST RADIOGRAPH (2 VIEW FRONTAL & LATERAL) CLINICAL HISTORY: Cough MQ: XC2_6 EXAM DATE/TIME: 07/05/2021 10:30 AM COMPARISON: Chest x-ray on 05/01/2019. RESULT: Lines, tubes, and devices: None. Lungs and pleura: No consolidation. No lung mass. No pleural effusion. No pneumothorax. Cardiomediastinal silhouette: Stable cardiomediastinal silhouette. Bones and soft tissues: There are degenerative changes in the spine. DIVISION OF RADIOLOGY Provider, [facility] - 07/05/2021 * * *Final Report* * * DATE OF EXAM: Jul 05 2021 10:30AM WOX 5291 - XR CHEST 2V FRONTAL/LAT / PROCEDURE REASON: Cough * * * * Physician Interpretation * * * * EXAMINATION: CHEST RADIOGRAPH (2 VIEW FRONTAL & LATERAL) CLINICAL HISTORY: Cough MQ: XC2_6 EXAM DATE/TIME: 07/05/2021 10:30 AM COMPARISON: Chest x-ray on 05/01/2019. RESULT: Lines, tubes, and devices: None. Lungs and pleura: No consolidation. No lung mass. No pleural effusion. No pneumothorax. Cardiomediastinal silhouette: Stable cardiomediastinal silhouette. Bones and soft tissues: There are degenerative changes in the spine. IMPRESSION IMPRESSION: No acute radiographic abnormality. Fixed Assets Accountant: PSCB Transcribe Date/Time: Jul 05 2021 10:40A Dictated by : ABBIE MUNOZ MD This examination was interpreted and the report reviewed and electronically signed by: ABBIE MUNOZ MD on Jul 05 2021 10:41AM EST [facility] Radiology Study observation (narrative) [facility] XR Chest PA and LateralOrder ed By: Cc Provider on 07-05-2021 [facility] Vital Signs Date Time Vital Sign Value Performing Clinician Faci lity 10-18-2024 06:22-0400 Body temperature 97.8 [degF] Dr. Frederic Luong MD Work Phone: 0(471)108-097559 [place] [address] 10-18-2024 06:22-0400 Diastolic blood pressure 60 mm[Hg] Dr. Frederic Luong MD Work Phone: 7(820)956-751827 [place] [address] 10-18-2024 06:22-0400 Heart rate 68 /min Dr. Frederic Luong MD Work Phone: 7(481)339-047659 [place] [address] 10-18-2024 06:22-0400 Respiratory rate 16 /min Dr. Frederic Luong MD Work Phone: 1(049)158-193427 [place] [address] 10-18-2024 06:22-0400 SaO2% (BldA) [Mass fraction] 100 % Dr. Frederic Luong MD Work Phone: 5(927)492-859227 [place] [address] 10-18-2024 06:22-0400 Systolic blood pressure 123 mm[Hg] Dr. Frederic Luong MD Work Phone: 6(668)303-441127 [place] [address] 10-18-2024 06:02-0400 Body height 152.[address] Frederic Luong MD Work Phone: 3(470)633-902327 [place] [address] 10-18-2024 06:02-0400 Body mass index (BMI) [Ratio] 25 kg/m2 Dr. Frederic Luong MD Work Phone: 9(343)864-986159 [place] [address] 10-18-2024 06:02-0400 Body weight 58.[address] Frederic Luong MD Work Phone: 9(562)674-020127 [place] [address] 08-27-2024 18:27-0400 Body mass index (BMI) [Ratio] 24.66 kg/m2 Moon Feliz APRN.EXCELLENCE SPECIALIST Work Phone: 8(846)449-080946 [place] [address] 08-27-2024 18:27-0400 Body weight 56.6 kg Moon Feliz APRN.EXCELLENCE SPECIALIST Work Phone: 2(458)646-838746 [place] [address] 08-27-2024 18:27-0400 Diastolic blood pressure 82 mm[Hg] Moon Juan José AUTOMATIC MACHINES SUPERVISOR.EXCELLENCE SPECIALIST Work Phone: [facility] 08-27-2024 18:27-0400 Heart rate 82 /min Moon Juan José AUTOMATIC MACHINES SUPERVISOR.EXCELLENCE SPECIALIST Work Phone: [facility] 08-27-2024 18:27-0400 Respiratory rate 12 /min Moon Juan José AUTOMATIC MACHINES SUPERVISOR.EXCELLENCE SPECIALIST Work Phone: [facility] 08-27-2024 18:27-0400 SaO2% (BldA) [Mass fraction] 98 % Moon Juan José AUTOMATIC MACHINES SUPERVISOR.EXCELLENCE SPECIALIST Work Phone: [facility] 08-27-2024 18:27-0400 Systolic blood pressure 132 mm[Hg] Moon Juan José AUTOMATIC MACHINES SUPERVISOR.EXCELLENCE SPECIALIST Work Phone: [facility] 07-30-2024 17:48-0400 Body mass index (BMI) [Ratio] 24.62 kg/m2 Moon Juan José AUTOMATIC MACHINES SUPERVISOR.EXCELLENCE SPECIALIST Work Phone: [facility] 07-30-2024 17:48-0400 Body weight 56.5 kg Moon Juan José AUTOMATIC MACHINES SUPERVISOR.EXCELLENCE SPECIALIST Work Phone: [facility] 07-30-2024 17:48-0400 Diastolic blood pressure 80 mm[Hg] Moon Juan José AUTOMATIC MACHINES SUPERVISOR.EXCELLENCE SPECIALIST Work Phone: [facility] 07-30-2024 17:48-0400 Heart rate 76 /min Moon Juan José AUTOMATIC MACHINES SUPERVISOR.EXCELLENCE SPECIALIST Work Phone: [facility] 07-30-2024 17:48-0400 Respiratory rate 14 /min Moon Juan José AUTOMATIC MACHINES SUPERVISOR.EXCELLENCE SPECIALIST Work Phone: [facility] 07-30-2024 17:48-0400 SaO2% (BldA) [Mass fraction] 98 % Moon Juan José AUTOMATIC MACHINES SUPERVISOR.EXCELLENCE SPECIALIST Work Phone: [facility] 07-30-2024 17:48-0400 Systolic blood pressure 132 mm[Hg] Moon Juan José AUTOMATIC MACHINES SUPERVISOR.EXCELLENCE SPECIALIST Work Phone: [facility] 06-25-2024 16:41-0400 Body mass index (BMI) [Ratio] 23.92 kg/m2 Moon Juan José AUTOMATIC MACHINES SUPERVISOR.EXCELLENCE SPECIALIST Work Phone: [facility] 06-25-2024 16:41-0400 Body weight 54.9 kg Moon Juan José AUTOMATIC MACHINES SUPERVISOR.EXCELLENCE SPECIALIST Work Phone: [facility] 06-25-2024 16:41-0400 Diastolic blood pressure 80 mm[Hg] Moon Juan José AUTOMATIC MACHINES SUPERVISOR.EXCELLENCE SPECIALIST Work Phone: [facility] 06-25-2024 16:41-0400 Heart rate 80 /min Moon Juan José AUTOMATIC MACHINES SUPERVISOR.EXCELLENCE SPECIALIST Work Phone: [facility] 06-25-2024 16:41-0400 Respiratory rate 12 /min Moon Juan José AUTOMATIC MACHINES SUPERVISOR.EXCELLENCE SPECIALIST Work Phone: [facility] 06-25-2024 16:41-0400 SaO2% (BldA) [Mass fraction] 97 % Moon Juan José AUTOMATIC MACHINES SUPERVISOR.EXCELLENCE SPECIALIST Work Phone: [facility] 06-25-2024 16:41-0400 Systolic blood pressure 136 mm[Hg] Moon Juan José AUTOMATIC MACHINES SUPERVISOR.EXCELLENCE SPECIALIST Work Phone: [facility] 05-28-2024 16:17-0500 Body mass index (BMI) [Ratio] 24.53 kg/m2 Moon Juan José AUTOMATIC MACHINES SUPERVISOR.EXCELLENCE SPECIALIST Work Phone: [facility] 05-28-2024 16:17-0500 Body weight 56.3 kg Moon Juan José AUTOMATIC MACHINES SUPERVISOR.EXCELLENCE SPECIALIST Work Phone: [facility] 05-28-2024 16:17-0500 Diastolic blood pressure 80 mm[Hg] Moon Juan José AUTOMATIC MACHINES SUPERVISOR.EXCELLENCE SPECIALIST Work Phone: [facility] 05-28-2024 16:17-0500 Heart rate 64 /min Moon Juan José AUTOMATIC MACHINES SUPERVISOR.EXCELLENCE SPECIALIST Work Phone: [facility] 05-28-2024 16:17-0500 Respiratory rate 14 /min Moon Fleiz AUTOMATIC MACHINES SUPERVISOR.EXCELLENCE SPECIALIST Work Phone: [facility] 05-28-2024 16:17-0500 SaO2% (BldA) [Mass fraction] 99 % Moon Feliz AUTOMATIC MACHINES SUPERVISOR.EXCELLENCE SPECIALIST Work Phone: [facility] 05-28-2024 16:17-0500 Systolic blood pressure 136 mm[Hg] Moon Feliz AUTOMATIC MACHINES SUPERVISOR.EXCELLENCE SPECIALIST Work Phone: [facility] 05-16-2024 13:42-0500 Diastolic blood pressure 76 mm[Hg] Frederic Luong MD Work Phone: [facility] 05-16-2024 13:42-0500 Systolic blood pressure 150 mm[Hg] Frederic Luong MD Work Phone: [facility] 05-16-2024 13:38-0500 Body mass index (BMI) [Ratio] 24.92 kg/m2 Frederic Luong MD Work Phone: [facility] 05-16-2024 13:38-0500 Body temperature 98.71 [degF] Frederic Luong MD Work Phone: [facility] 05-16-2024 13:38-0500 Body weight 57.2 kg Frederic Luong MD Work Phone: [facility] 05-16-2024 13:38-0500 Heart rate 71 /min Frederic Luong MD Work Phone: [facility] 05-16-2024 13:38-0500 SaO2% (BldA) [Mass fraction] 95 % Frederic Luong MD Work Phone: [facility] 04-30-2024 16:12-0500 Body height 151.5 cm Moon Feliz AUTOMATIC MACHINES SUPERVISOR.EXCELLENCE SPECIALIST Work Phone: [facility] 04-30-2024 16:12-0500 Body mass index (BMI) [Ratio] 24.31 kg/m2 Moon Juan José AUTOMATIC MACHINES SUPERVISOR.EXCELLENCE SPECIALIST Work Phone: [facility] 04-30-2024 16:12-0500 Body weight 55.8 kg Moon QuijanoJuan José AUTOMATIC MACHINES SUPERVISOR.EXCELLENCE SPECIALIST Work Phone: [facility] 04-30-2024 16:12-0500 Diastolic blood pressure 72 mm[Hg] Moon QuijanoJuan José AUTOMATIC MACHINES SUPERVISOR.EXCELLENCE SPECIALIST Work Phone: [facility] 04-30-2024 16:12-0500 Heart rate 74 /min Moon QuijanoJuan José AUTOMATIC MACHINES SUPERVISOR.EXCELLENCE SPECIALIST Work Phone: [facility] 04-30-2024 16:12-0500 Respiratory rate 14 /min Moon QuijanoJuan José AUTOMATIC MACHINES SUPERVISOR.EXCELLENCE SPECIALIST Work Phone: [facility] 04-30-2024 16:12-0500 SaO2% (BldA) [Mass fraction] 98 % Moon QuijanoJuan José AUTOMATIC MACHINES SUPERVISOR.EXCELLENCE SPECIALIST Work Phone: [facility] 04-30-2024 16:12-0500 Systolic blood pressure 118 mm[Hg] Moon QuijanoJuan José AUTOMATIC MACHINES SUPERVISOR.EXCELLENCE SPECIALIST Work Phone: [facility] 04-24-2024 12:57-0500 Body mass index (BMI) [Ratio] 22.98 kg/m2 Agus Garcia APRN.EXCELLENCE SPECIALIST Work Phone: [facility] 04-24-2024 12:57-0500 Body temperature 97.2 [degF] Agus Garcia APRN.EXCELLENCE SPECIALIST Work Phone: [facility] 04-24-2024 12:57-0500 Body weight 57 kg Agus Garcia APRN.EXCELLENCE SPECIALIST Work Phone: [facility] 04-24-2024 12:57-0500 Diastolic blood pressure 77 mm[Hg] Agus Garcia APRN.EXCELLENCE SPECIALIST Work Phone: [facility] 04-24-2024 12:57-0500 Heart rate 72 /min Agus Garcia APRN.EXCELLENCE SPECIALIST Work Phone: [facility] 04-24-2024 12:57-0500 Respiratory rate 20 /min Agus Garcia APRN.EXCELLENCE SPECIALIST Work Phone: [facility] 04-24-2024 12:57-0500 SaO2% (BldA) [Mass fraction] 99 % Agus Garcia APRN.EXCELLENCE SPECIALIST Work Phone: [facility] 04-24-2024 12:57-0500 Systolic blood pressure 151 mm[Hg] Agus Garcia APRN.EXCELLENCE SPECIALIST Work Phone: [facility] 03-24-2024 19:08-0500 Body mass index (BMI) [Ratio] 22.78 kg/m2 Frederic Luong MD Work Phone: [facility] 03-24-2024 19:08-0500 Body temperature 99.1 [degF] Frederic Luong MD Work Phone: [facility] 03-24-2024 19:08-0500 Body weight 56.5 kg Frederic Luong MD Work Phone: [facility] 03-24-2024 19:08-0500 Diastolic blood pressure 80 mm[Hg] Frederic Luong MD Work Phone: [facility] 03-24-2024 19:08-0500 Heart rate 90 /min Frederic Luong MD Work Phone: [facility] 03-24-2024 19:08-0500 Respiratory rate 14 /min Frederic Luong MD Work Phone: [facility] 03-24-2024 19:08-0500 SaO2% (BldA) [Mass fraction] 98 % Frederic Luong MD Work Phone: [facility] 03-24-2024 19:08-0500 Systolic blood pressure 138 mm[Hg] Frederic Luong MD Work Phone: [facility] 01-21-2024 10:40-0400 Body mass index (BMI) [Ratio] 22.7 kg/m2 Moon Feliz APRN.EXCELLENCE SPECIALIST Work Phone: [facility] 01-21-2024 10:40-0400 Body temperature 98.91 [degF] Moon Feliz AUTOMATIC MACHINES SUPERVISOR.EXCELLENCE SPECIALIST Work Phone: [facility] 01-21-2024 10:40-0400 Body weight 56.3 kg Moon Feliz AUTOMATIC MACHINES SUPERVISOR.EXCELLENCE SPECIALIST Work Phone: [facility] 01-21-2024 10:40-0400 Diastolic blood pressure 86 mm[Hg] Moon Feliz AUTOMATIC MACHINES SUPERVISOR.EXCELLENCE SPECIALIST Work Phone: [facility] 01-21-2024 10:40-0400 Heart rate 81 /min Moon Feliz AUTOMATIC MACHINES SUPERVISOR.EXCELLENCE SPECIALIST Work Phone: [facility] 01-21-2024 10:40-0400 Respiratory rate 14 /min Moon Feliz AUTOMATIC MACHINES SUPERVISOR.EXCELLENCE SPECIALIST Work Phone: [facility] 01-21-2024 10:40-0400 SaO2% (BldA) [Mass fraction] 95 % Moon Feliz AUTOMATIC MACHINES SUPERVISOR.EXCELLENCE SPECIALIST Work Phone: [facility] 01-21-2024 10:40-0400 Systolic blood pressure 136 mm[Hg] Moon Feliz AUTOMATIC MACHINES SUPERVISOR.EXCELLENCE SPECIALIST Work Phone: [facility] 12-29-2023 10:01-0400 Body mass index (BMI) [Ratio] 22.94 kg/m2 Agus Garcia APRN.EXCELLENCE SPECIALIST Work Phone: [facility] 12-29-2023 10:01-0400 Body temperature 98.1 [degF] Agus Garcia APRN.EXCELLENCE SPECIALIST Work Phone: [facility] 12-29-2023 10:01-0400 Body weight 56.9 kg Agus Garcia APRN.EXCELLENCE SPECIALIST Work Phone: [facility] 12-29-2023 10:01-0400 Diastolic blood pressure 74 mm[Hg] Agus Garcia APRN.EXCELLENCE SPECIALIST Work Phone: [facility] 12-29-2023 10:01-0400 Heart rate 74 /min Agus Garcia APRN.EXCELLENCE SPECIALIST Work Phone: [facility] 12-29-2023 10:01-0400 Respiratory rate 16 /min Agus Garcia APRN.EXCELLENCE SPECIALIST Work Phone: [facility] 12-29-2023 10:01-0400 SaO2% (BldA) [Mass fraction] 98 % Agus Garcia APRN.EXCELLENCE SPECIALIST Work Phone: [facility] 12-29-2023 10:01-0400 Systolic blood pressure 110 mm[Hg] Agus Garcia APRN.EXCELLENCE SPECIALIST Work Phone: [facility] 07-01-2023 17:44-0400 Body temperature 97.9 [degF] [facility] 07-01-2023 17:44-0400 Diastolic blood pressure 76 mm[Hg] [facility] 07-01-2023 17:44-0400 Heart rate 68 /min [facility] 07-01-2023 17:44-0400 Respiratory rate 16 /min [facility] 07-01-2023 17:44-0400 SaO2% (BldA) [Mass fraction] 97 % [facility] 07-01-2023 17:44-0400 Systolic blood pressure 124 mm[Hg] [facility] 07-01-2023 14:34-0400 Body mass index (BMI) [Ratio] 25.2 kg/m2 [facility] 07-01-2023 14:34-0400 Body weight 58.51 kg [facility] 07-01-2023 14:29-0400 Body height 152.4 cm [facility] 07-01-2023 14:14-0400 Body temperature 100.4 [degF] Riaz Flores APRN.EXCELLENCE SPECIALIST Work Phone: [facility] 07-01-2023 14:14-0400 Body weight 59.1 kg Riaz Flores APRN.EXCELLENCE SPECIALIST Work Phone: [facility] 06-04-2023 15:45-0500 Body temperature 98.6 [degF] Frederic Luong MD Work Phone: [facility] 06-04-2023 15:45-0500 Body weight 55.79 kg Frederic Luong MD Work Phone: [facility] 06-04-2023 15:45-0500 Diastolic blood pressure 80 mm[Hg] Frederic Luong MD Work Phone: [facility] 06-04-2023 15:45-0500 Heart rate 88 /min Frederic Luong MD Work Phone: [facility] 06-04-2023 15:45-0500 Respiratory rate 16 /min Frederic Luong MD Work Phone: [facility] 06-04-2023 15:45-0500 Systolic blood pressure 132 mm[Hg] Frederic Luong MD Work Phone: [facility] 04-13-2023 22:53-0500 Diastolic blood pressure 68 mm[Hg] [facility] 04-13-2023 22:53-0500 Heart rate 67 /min [facility] 04-13-2023 22:53-0500 Respiratory rate 18 /min [facility] 04-13-2023 22:53-0500 SaO2% (BldA) [Mass fraction] 97 % [facility] 04-13-2023 22:53-0500 Systolic blood pressure 109 mm[Hg] [facility] 04-13-2023 17:47-0500 Body height 152.4 cm [facility] 04-13-2023 17:47-0500 Body mass index (BMI) [Ratio] 25 kg/m2 [facility] 04-13-2023 17:47-0500 Body temperature 98.2 [degF] [facility] 04-13-2023 17:47-0500 Body weight 58.2 kg [facility] 12-28-2022 11:26-0400 Diastolic blood pressure 69 mm[Hg] Alen Arroyo MD Work Phone: [facility] 12-28-2022 11:26-0400 Heart rate 56 /min Alen Arroyo MD Work Phone: [facility] 12-28-2022 11:26-0400 Respiratory rate 16 /min Alen Arroyo MD Work Phone: [facility] 12-28-2022 11:26-0400 SaO2% (BldA) [Mass fraction] 100 % Alen Arroyo MD Work Phone: [facility] 12-28-2022 11:26-0400 Systolic blood pressure 158 mm[Hg] Alen Arroyo MD Work Phone: [facility] 12-28-2022 09:52-0400 Body temperature 98.01 [degF] Alen Arroyo MD Work Phone: [facility] 12-28-2022 09:52-0400 Body weight 60.4 kg Alen Arroyo MD Work Phone: [facility] 12-01-2022 10:07-0400 Body height 157.5 cm Susan April PA-C Work Phone: [facility] 12-01-2022 10:07-0400 Body temperature 98.1 [degF] Susan Hadley PA-C Work Phone: [facility] 12-01-2022 10:07-0400 Body weight 60.42 kg Susan April PA-C Work Phone: [facility] 12-01-2022 10:07-0400 Diastolic blood pressure 86 mm[Hg] Susan Hadley PA-C Work Phone: [facility] 12-01-2022 10:07-0400 Heart rate 89 /min Susan April PA-C Work Phone: [facility] 12-01-2022 10:07-0400 SaO2% (BldA) [Mass fraction] 98 % Susan April PA-C Work Phone: [facility] 12-01-2022 10:07-0400 Systolic blood pressure 138 mm[Hg] Susan Hadley PA-C Work Phone: [facility] 07-20-2022 11:04-0400 Body weight 61.24 kg Frederic Luong MD Work Phone: [facility] 07-20-2022 11:04-0400 Diastolic blood pressure 78 mm[Hg] Frederic Luong MD Work Phone: [facility] 07-20-2022 11:04-0400 Heart rate 80 /min Frederic Luong MD Work Phone: [facility] 07-20-2022 11:04-0400 Respiratory rate 16 /min Frederic Luong MD Work Phone: [facility] 07-20-2022 11:04-0400 Systolic blood pressure 134 mm[Hg] Frederic Luong MD Work Phone: [facility] 07-15-2022 15:53-0400 Heart rate 78 /min [facility] 07-15-2022 15:53-0400 Respiratory rate 16 /min [facility] 07-15-2022 15:53-0400 SaO2% (BldA) [Mass fraction] 100 % [facility] 07-15-2022 13:43-0400 Body height 152.4 cm [facility] 07-15-2022 13:43-0400 Body mass index (BMI) [Ratio] 26.4 kg/m2 [facility] 07-15-2022 13:43-0400 Body temperature 96.4 [degF] [facility] 07-15-2022 13:43-0400 Body weight 61.41 kg [facility] 07-15-2022 13:43-0400 Diastolic blood pressure 72 mm[Hg] [facility] 07-15-2022 13:43-0400 Systolic blood pressure 141 mm[Hg] [facility] 07-13-2022 11:45-0400 Diastolic blood pressure 81 mm[Hg] Frederic Luong MD Work Phone: [facility] 07-13-2022 11:45-0400 Heart rate 81 /min Frederic Luong MD Work Phone: [facility] 07-13-2022 11:45-0400 Systolic blood pressure 137 mm[Hg] Frederic Luong MD Work Phone: [facility] 07-13-2022 11:40-0400 Body weight 61.69 kg Frederic Luong MD Work Phone: [facility] 07-13-2022 11:40-0400 Respiratory rate 16 /min Frederic Luong MD Work Phone: [facility] 03-31-2022 11:07-0500 Body temperature 98.01 [degF] Agus Garcia APRN.EXCELLENCE SPECIALIST Work Phone: [facility] 03-31-2022 11:07-0500 Body weight 61.6 kg Agus Garcia APRN.EXCELLENCE SPECIALIST Work Phone: [facility] 03-31-2022 11:07-0500 Diastolic blood pressure 82 mm[Hg] Agus Garcia APRN.EXCELLENCE SPECIALIST Work Phone: [facility] 03-31-2022 11:07-0500 Heart rate 82 /min Agus Garcia APRN.EXCELLENCE SPECIALIST Work Phone: [facility] 03-31-2022 11:07-0500 Respiratory rate 18 /min Agus Garcia APRN.EXCELLENCE SPECIALIST Work Phone: [facility] 03-31-2022 11:07-0500 SaO2% (BldA) [Mass fraction] 99 % Agus Garcia APRN.EXCELLENCE SPECIALIST Work Phone: [facility] 03-31-2022 11:07-0500 Systolic blood pressure 144 mm[Hg] Agus Garcia APRN.EXCELLENCE SPECIALIST Work Phone: [facility] 02-17-2022 21:44-0400 Heart rate 69 /min [facility] Work Phone: 02-17-2022 21:44-0400 Respiratory rate 18 /min [facility] Work Phone: 02-17-2022 21:44-0400 SaO2% (BldA) [Mass fraction] 100 % [facility] Work Phone: 02-17-2022 19:30-0400 Body height 152.4 cm [facility] Work Phone: 02-17-2022 19:30-0400 Body mass index (BMI) [Ratio] 25 kg/m2 [facility] Work Phone: 02-17-2022 19:30-0400 Body temperature 98.3 [degF] [facility] Work Phone: 02-17-2022 19:30-0400 Body weight 58.05 kg [facility] Work Phone: 02-17-2022 19:30-0400 Diastolic blood pressure 72 mm[Hg] [facility] Work Phone: 02-17-2022 19:30-0400 Systolic blood pressure 159 mm[Hg] [facility] Work Phone: 01-06-2022 10:07-0400 Body height 150.5 cm Moon Older AUTOMATIC MACHINES SUPERVISOR.EXCELLENCE SPECIALIST Work Phone: [facility] 01-06-2022 10:07-0400 Body temperature 96.69 [degF] Moon Older AUTOMATIC MACHINES SUPERVISOR.EXCELLENCE SPECIALIST Work Phone: [facility] 01-06-2022 10:07-0400 Body weight 60.78 kg Moon Older AUTOMATIC MACHINES SUPERVISOR.EXCELLENCE SPECIALIST Work Phone: [facility] 01-06-2022 10:07-0400 Diastolic blood pressure 68 mm[Hg] Moon Older AUTOMATIC MACHINES SUPERVISOR.EXCELLENCE SPECIALIST Work Phone: [facility] 01-06-2022 10:07-0400 Heart rate 83 /min Moon Older AUTOMATIC MACHINES SUPERVISOR.EXCELLENCE SPECIALIST Work Phone: [facility] 01-06-2022 10:07-0400 Respiratory rate 16 /min Moon Older AUTOMATIC MACHINES SUPERVISOR.EXCELLENCE SPECIALIST Work Phone: [facility] 01-06-2022 10:07-0400 SaO2% (BldA) [Mass fraction] 99 % Moon Older AUTOMATIC MACHINES SUPERVISOR.EXCELLENCE SPECIALIST Work Phone: [facility] 01-06-2022 10:07-0400 Systolic blood pressure 110 mm[Hg] Moon Ferris AUTOMATIC MACHINES SUPERVISOR.EXCELLENCE SPECIALIST Work Phone: [facility] 08-12-2021 11:37-0400 Diastolic blood pressure 66 mm[Hg] [facility] Work Phone: 08-12-2021 11:37-0400 Heart rate 63 /min [facility] Work Phone: 08-12-2021 11:37-0400 Respiratory rate 16 /min [facility] Work Phone: 08-12-2021 11:37-0400 SaO2% (BldA) [Mass fraction] 100 % [facility] Work Phone: 08-12-2021 11:37-0400 Systolic blood pressure 131 mm[Hg] [facility] Work Phone: 08-12-2021 09:24-0400 Body height 154.94 cm [facility] Work Phone: 08-12-2021 09:24-0400 Body mass index (BMI) [Ratio] 22.4 kg/m2 [facility] Work Phone: 08-12-2021 09:24-0400 Body temperature 97.1 [degF] [facility] Work Phone: 08-12-2021 09:24-0400 Body weight 53.97 kg [facility] Work Phone: 07-05-2021 10:10-0400 Body temperature 98.29 [degF] Riaz Flores AUTOMATIC MACHINES SUPERVISOR.EXCELLENCE SPECIALIST Work Phone: [facility] 07-05-2021 10:10-0400 Body weight 60.42 kg Riaz Flores AUTOMATIC MACHINES SUPERVISOR.EXCELLENCE SPECIALIST Work Phone: [facility] 07-05-2021 10:10-0400 Diastolic blood pressure 82 mm[Hg] Riaz Flores AUTOMATIC MACHINES SUPERVISOR.EXCELLENCE SPECIALIST Work Phone: [facility] 07-05-2021 10:10-0400 Heart rate 75 /min Riaz Flores AUTOMATIC MACHINES SUPERVISOR.EXCELLENCE SPECIALIST Work Phone: [facility] 07-05-2021 10:10-0400 Respiratory rate 18 /min Riaz Sandra AUTOMATIC MACHINES SUPERVISOR.EXCELLENCE SPECIALIST Work Phone: [facility] 07-05-2021 10:10-0400 SaO2% (BldA) [Mass fraction] 98 % Riaz Sandra AUTOMATIC MACHINES SUPERVISOR.EXCELLENCE SPECIALIST Work Phone: [facility] 07-05-2021 10:10-0400 Systolic blood pressure 138 mm[Hg] Riaz Calhounalo AUTOMATIC MACHINES SUPERVISOR.EXCELLENCE SPECIALIST Work Phone: [facility] Encounters Encounter Date Encounter Type Care Provider Facility Start: 10-20-2024 End: 10-20-2024 ambulatory Sher Carlson RN [facility] Comment on above: ACM CECILY RN ( Chart review per payor request) Start: 10-18-2024 End: 10-18-2024 Emergency department patient visit Dr. Frederic Luong MD Work Phone: -Emergency Department Work Phone: Start: 08-27-2024 End: 08-27-2024 Office outpatient visit 25 minutes Moon Feliz AUTOMATIC MACHINES SUPERVISOR.EXCELLENCE SPECIALIST Work Phone: [facility] [place] Comment on above: Situational mixed an xiety and depressive disorder (Primary Dx); Tremor Start: 08-27-2024 End: 08-27-2024 ambulatory MOON FELIZ Facility:[facility] Start: 07-30-2024 End: 07-30-2024 Patient encounter procedure Moon Feliz AUTOMATIC MACHINES SUPERVISOR.EXCELLENCE SPECIALIST Work Phone: [facility] [place] Comment on above: Situational mixed an xiety and depressive disorder (Primary Dx); Insomnia, unspecified type Start: 07-30-2024 End: 07-30-2024 ambulatory FREDERIC LUONG Facility:[facility] Start: 06-25-2024 End: 06-25-2024 ambulatory MOON FEILZ Facility:[facility] Start: 06-25-2024 End: 06-25-2024 Patient encounter procedure Moon Feliz APRN.EXCELLENCE SPECIALIST Work Phone: [facility] [place] Comment on above: Situational mixed an xiety and depressive disorder (Primary Dx) Start: 05-28-2024 End: 05-28-2024 ambulatory MOON FELIZ Facility:[facility] Start: 05-28-2024 End: 05-28-2024 Patient encounter procedure Moon Ta Juan José AUTOMATIC MACHINES SUPERVISOR.EXCELLENCE SPECIALIST Work Phone: [facility] [place] Comment on above: Situational mixed an xiety and depressive disorder (Primary Dx); Hyperlipidemia, unspecified hyperlipidemia type; Vitamin D deficiency Start: 05-23-2024 End: 05-23-2024 ambulatory FREDERIC LUONG Facility:[facility] Start: 05-16-2024 End: 05-16-2024 Telephone encounter Moon Feliz APRN.EXCELLENCE SPECIALIST Work Phone: [facility] [place] Comment on above: Patient Update Start: 05-16-2024 End: 05-16-2024 ambulatory FREDERIC LUONG Facility:[facility] Start: 05-16-2024 End: 05-16-2024 Office outpatient visit 25 minutes Frederic Luong MD Work Phone: [facility] [place] Comment on above: Urinary hesitancy (P rimary Dx); Dysuria; Pelvic pain Start: 04-30-2024 End: 04-30-2024 ambulatory MOON FELIZ Facility:[facility] Start: 04-30-2024 End: 04-30-2024 Patient encounter procedure Moon Feliz AUTOMATIC MACHINES SUPERVISOR.EXCELLENCE SPECIALIST Work Phone: [facility] [place] Comment on above: Medicare annual well ness visit, subsequent (Primary Dx); Situational mixed anxiety and depressive disorder; Age-related osteoporosis without current pathological fracture; Hyperlipidemia, mixed; Vitamin D deficiency; Screening for depression; Encounter for screening examination for other mental health and behavioral disorders; Encounter for immunization Start: 04-27-2024 End: 04-27-2024 Telephone encounter Harrison Figueroa APRN.EXCELLENCE SPECIALIST Work Phone: [facility] Comment on above: Results Start: 04-24-2024 End: 04-24-2024 ambulatory FREDERIC LUONG Facility:[facility] Start: 04-24-2024 End: 04-24-2024 Patient encounter procedure Agus Garcia APRN.EXCELLENCE SPECIALIST Work Phone: [facility] Comment on above: Urinary urgency (Ludivina roe Dx) Start: 03-24-2024 End: 03-24-2024 Office outpatient visit 25 minutes Frederic Luong MD Work Phone: [facility] [place] Comment on above: Rib contusion, left, subsequent encounter (Primary Dx); Elevated blood pressure reading Start: 03-24-2024 End: 03-24-2024 ambulatory Farideh Flores RN Work Phone: [facility] Start: 03-20-2024 End: 03-20-2024 Emergency department patient visit Frederic Luong Facility:[facility] Start: 01-23-2024 End: 01-23-2024 ambulatory Moon Feliz APRN.EXCELLENCE SPECIALIST Work Phone: [facility] [place] Comment on above: results Start: 01-23-2024 End: 01-23-2024 E-mail encounter from caregiver Moon Feliz APRN.EXCELLENCE SPECIALIST Work Phone: [facility] [place] Start: 01-23-2024 End: 01-23-2024 Telephone encounter Frederic Luong MD Work Phone: [facility] [place] Comment on above: Results Start: 01-21-2024 End: 01-21-2024 ambulatory Frederic Luong MD Work Phone: [facility] [place] Comment on above: Hematuria Start: 01-21-2024 End: 01-21-2024 Patient encounter procedure Moon Feliz APRN.EXCELLENCE SPECIALIST Work Phone: [facility] [place] Comment on above: Gross hematuria (Ludivina roe Dx); Pelvic pain Start: 01-07-2024 End: 01-07-2024 ambulatory Farideh Flores RN Work Phone: [facility] Comment on above: DOMONIQUE CARMONA RN ( ED utilization review per request of payer) Start: 12-30-2023 End: 12-30-2023 Emergency department patient visit Frederic Luong Facility:[facility] Start: 12-29-2023 End: 12-29-2023 ambulatory FREDERIC LUONG Facility:[facility] Start: 12-29-2023 End: 12-29-2023 Patient encounter procedure Agus Garcia APRN.CNP Work Phone: [facility] [place] [facility] Comment on above: Pain, dental (Primar y Dx) Start: 10-24-2023 ambulatory Marlon Brooks [place] [facility] [place] Comment on above: Medicare Wellness Ex am Start: 10-09-2023 Telephone encounter Frederic funk MD Work Phone: [facility] [place] Comment on above: Fall Start: 10-08-2023 End: 10-08-2023 Patient encounter procedure Pj Ryan MD Work Phone: Orthopaedics Comment on above: Trigger middle finge r of right hand (Primary Dx) Start: 09-11-2023 End: 09-11-2023 Patient encounter procedure Lizz Bo PA-C Work Phone: Orthopaedics Comment on above: Trigger middle finge r of right hand (Primary Dx); Postoperative stitch abscess Start: 09-07-2023 ambulatory Pj Ryan MD Work Phone: Orthopaedics Comment on above: Concerned on tricker finger. Start: 09-07-2023 Telephone encounter Pj dean MD Work Phone: Orthopaedics Comment on above: Patient Update Start: 09-05-2023 ambulatory Frederic vargas MD Work Phone: [facility] [place] Start: 08-31-2023 End: 08-31-2023 ambulatory PJ RYAN Facility:[facility] Start: 08-27-2023 E-mail encounter ashley m caregiver Pj Ryan MD Work Phone: Orthopaedics Start: 08-27-2023 End: 08-27-2023 Patient encounter procedure Pj Ryan MD Work Phone: Orthopaedics Comment on above: Post op appointments Trigger middle finge r of right hand Start: 08-27-2023 Telephone encounter Pj dean MD Work Phone: Orthopaedics Comment on above: Schedule Surgery Start: 07-01-2023 End: 07-01-2023 [facility] Start: 07-01-2023 End: 07-01-2023 Patient encounter procedure Riaz Flores AUTOMATIC MACHINES SUPERVISOR.EXCELLENCE SPECIALIST Work Phone: [place] [facility] Comment on above: Procedure not adrianne d out (Primary Dx) Start: 06-04-2023 End: 06-04-2023 Patient encounter procedure Frederic Luong MD Work Phone: [facility] [place] Comment on above: Trigger middle finge r of right hand (Primary Dx); Memory changes; Need for influenza vaccination; Age-related osteoporosis without current pathological fracture Start: 04-13-2023 End: 04-13-2023 [facility] Start: 12-28-2022 End: 12-28-2022 Subsequent hospital visit by physician Alen Arroyo MD Work Phone: Ambulatory Surgery Comment on above: History of colonic p olyps [Z86.010] Start: 12-01-2022 End: 12-01-2022 Patient encounter procedure Susan Chen PA-C Work Phone: General Surgery Comment on above: History of colonic p olyps (Primary Dx); Screen for colon cancer Start: 11-20-2022 Telephone encounter Frederic funk MD Work Phone: [facility] [place] Comment on above: Orders Start: 11-15-2022 Refill Moon Ferris APRN .EXCELLENCE SPECIALIST Work Phone: [facility] [place] Comment on above: Refill Request Start: 11-10-2022 Telephone encounter Frederic funk MD Work Phone: [facility] [place] Comment on above: Cancelled Request Start: 08-01-2022 Documentation procedure Mammog mindy Coordinator [facility] Start: 08-01-2022 Letter encounter Mammography Coordinator [facility] Department Start: 08-01-2022 End: 08-01-2022 Subsequent hospital visit by physician Screen Mammo [facility] Mammogram Comment on above: Encounter for screen ing mammogram for malignant neoplasm of breast [Z12.31] Start: 07-20-2022 End: 07-20-2022 Patient encounter procedure Frederic Luong MD Work Phone: [facility] [place] Comment on above: Acute leg pain, righ t (Primary Dx) Start: 07-17-2022 Non-patient / Non-visit Dr. Elizabeth Luong Work Phone: [facility] Start: 07-17-2022 End: 07-17-[address] Frederic Luong Work Phone: [facility] Work Phone: Start: 07-17-2022 End: 07-17-[address] Frederic Luong Work Phone: [facility]Cardiov[facility]cul[facility] Start: 07-17-2022 Telephone encounter Frederic funk MD Work Phone: [facility] [place] Comment on above: Results; results Start: 07-16-2022 ambulatory Estefania Jimenez RN NURS E SERVICE DESK TECHNICIAN Comment on above: Leg Pain Start: 07-15-2022 End: 07-15-2022 Emergency department patient visit [facility]Emergency Department Start: 07-13-2022 End: 07-13-2022 Subsequent hospital visit by physician Xr [facility] Work Phone: Radiology Comment on above: Acute leg pain, righ t [M79.604] Start: 07-13-2022 End: 07-13-2022 Patient encounter procedure Frederic Luong MD Work Phone: [facility] [place] Comment on above: Acute leg pain, righ t (Primary Dx); Special screening for malignant neoplasms, colon; Encounter for screening mammogram for malignant neoplasm of breast; Screening for osteoporosis; Abnormal gait Start: 06-20-2022 ambulatory Frederic vargas MD Work Phone: [facility] [place] Comment on above: Colon Cancer Screeni ng Start: 06-20-2022 E-mail encounter fro m caregiver Frederic Luong MD Work Phone: [facility] Start: 06-16-2022 ambulatory Caitie Leon [facility] Comment on above: Population Health Na vigation Outreach ([employer] Care Gaps ) Start: 04-13-2022 ambulatory [facility] [place] [facility] Comment on above: Population Health Na vigation Outreach ([employer] Medicare/) Start: 03-31-2022 End: 03-31-2022 Subsequent hospital visit by physician Mirella [facility] Work Phone: Radiology Comment on above: Pain [R52] Start: 03-31-2022 End: 03-31-2022 Patient encounter procedure Agus Garcia AUTOMATIC MACHINES SUPERVISOR.EXCELLENCE SPECIALIST Work Phone: [place] [facility] Comment on above: Pain (Primary Dx) Start: 02-28-2022 ambulatory [facility] [place] [facility] Comment on above: Population Health Na vigation Outreach ([employer] Medicare/) Start: 02-17-2022 End: 02-17-2022 [facility] Start: 01-06-2022 End: 01-06-2022 Patient encounter procedure Moon Older AUTOMATIC MACHINES SUPERVISOR.EXCELLENCE SPECIALIST Work Phone: [facility] [place] Comment on above: Preop exam for inter nal medicine (Primary Dx); Hyperlipidemia, mixed; Irritable bowel syndrome, unspecified type; Encounter for immunization Start: 01-06-2022 End: 01-06-2022 Patient encounter status Moon Older AUTOMATIC MACHINES SUPERVISOR.EXCELLENCE SPECIALIST Work Phone: [facility] [place] Start: 12-26-2021 ambulatory Caitie Leon [facility] Comment on above: Population Health Na vigation Outreach ([employer] Care Gaps ) Start: 11-17-2021 End: 11-17-2021 Subsequent hospital visit by physician Xr [facility] Work Phone: Radiology Comment on above: Acute pain of right knee [M25.561] Start: 10-12-2021 ambulatory Frederic vargas MD Work Phone: [facility] [place] Start: 08-22-2021 ambulatory Polly Connor [facility] Comment on above: Population Health Na vigation Outreach ([employer] Medicare ) Start: 08-12-2021 End: 08-12-2021 Emergency department patient visit [facility] Start: 07-05-2021 End: 07-05-2021 Subsequent hospital visit by physician Xr [facility] Work Phone: Radiology Comment on above: Cough [R05.9] Start: 07-05-2021 End: 07-05-2021 Patient encounter procedure Riaz Flores AUTOMATIC MACHINES SUPERVISOR.EXCELLENCE SPECIALIST Work Phone: [place] [facility] Comment on above: Cough (Primary Dx) Procedures Date Procedure Procedure Detail Performing Clinician Start: 05-23-2024 Lipid 1996 panel - S salo or Plasma Moon Feliz AUTOMATIC MACHINES SUPERVISOR.EXCELLENCE SPECIALIST Work Phone: Start: 05-16-2024 Urnls dip stick/tabl et rgnt auto w/o microscopy Frederic Luong MD Work Phone: Start: 04-30-2024 PFIZER-BIONTECH COVI D-19 VACCINE AGE 12+ YR (COMIRNATY) Moon Feliz AUTOMATIC MACHINES SUPERVISOR.EXCELLENCE SPECIALIST Work Phone: Start: 04-30-2024 Adult depression scr eening assessment Moon Feliz AUTOMATIC MACHINES SUPERVISOR.EXCELLENCE SPECIALIST Work Phone: Start: 04-24-2024 Urnls dip stick/tabl et rgnt auto w/o microscopy Agus Garcia AUTOMATIC MACHINES SUPERVISOR.EXCELLENCE SPECIALIST Work Phone: Start: 01-21-2024 Urnls dip stick/tabl et rgnt auto w/o microscopy Moon Feliz AUTOMATIC MACHINES SUPERVISOR.EXCELLENCE SPECIALIST Work Phone: Start: 07-01-2023 Radiologic examinati on of knee Start: 06-04-2023 INFLUENZA VACCINE, P RSV FREE, AGE 65+ YR, HIGH DOSE, QUADRIVALENT (FLUZONE HIGH-DOSE) Frederic Luong MD Work Phone: Start: 12-28-2022 Colonoscopy flx dx w /collj spec when pfrmd Susan Chen PA-C Work Phone: Start: 12-28-2022 Colonoscopy Alen quispe MD Work Phone: Start: 08-01-2022 End: 08-01-2022 Mammography Frederic Hill Work Phone: Start: 07-13-2022 Radex hip unilateral with pelvis 2-3 views Frederic Luong MD Work Phone: Start: 03-31-2022 Radex hand minimum 3 views Agus Garcia AUTOMATIC MACHINES SUPERVISOR.EXCELLENCE SPECIALIST Work Phone: Start: 02-17-2022 X-ray of radius and ulna Start: 01-06-2022 INFLUENZA SEASONAL QUADRIVALENT HIGH DOSE AGE 65+ Moon Older AUTOMATIC MACHINES SUPERVISOR.EXCELLENCE SPECIALIST Work Phone: Start: 01-06-2022 Lipid 1996 panel - S salo or Plasma Alen Arroyo MD Work Phone: Start: 11-17-2021 Radiologic exam knee complete 4/more views Stacey Don AUTOMATIC MACHINES SUPERVISOR.EXCELLENCE SPECIALIST Work Phone: Start: 08-12-2021 X-ray of lumbar spin e, two or three views Start: 08-12-2021 Plain x-ray of pelvi s and lower extremity Start: 07-05-2021 Radiologic exam ches t 2 views Riaz Flores AUTOMATIC MACHINES SUPERVISOR.EXCELLENCE SPECIALIST Work Phone: Start: 02-06-2014 Mammography Riaz thomson AUTOMATIC MACHINES SUPERVISOR.EXCELLENCE SPECIALIST Work Phone: Start: 05-23-2013 Colonoscopy Riaz thomson AUTOMATIC MACHINES SUPERVISOR.EXCELLENCE SPECIALIST Work Phone: Plan of Treatment Date Care Activity Detail Author Start: 03-31-2032 Urine microalbumin profile [facility] Start: 05-23-2029 Lipid panel Lipid Screening [facility] Start: 12-29-2027 Colonoscopy Colonoscopy [facility] Start: 12-29-2027 Colorectal Cancer Screening Colorectal Cancer Screening [facility] Start: 12-29-2027 Screening for malign ant neoplasm of colon [facility] Start: 09-07-2027 RSV Vaccine (1 - 1-d ose 75+ series) RSV Vaccine (1 - 1-dose 75+ series) [facility] Start: 01-20-2027 Diabetes Screening Diabetes Screenin g [facility] Start: 01-06-2027 Lipid 1996 panel - Serum or Plasma Lipid Screening [facility] Start: 01-06-2027 Lipid panel Lipid Screening [facility] Start: 01-06-2027 LIPID SCREEN LIPID SCREEN [facility] Start: 07-13-2025 DIABETES SCREEN DIABETES SCREEN [facility] Start: 07-13-2025 Diabetes Screening Diabetes Screenin g [facility] Start: 04-30-2025 Anxiety Screening Anxiety Screening [facility] Start: 04-30-2025 Depression Screening Depression Scre ening [facility] Start: 04-30-2025 Shingrix Vaccine (1 of 2) Shingrix Vaccine (1 of 2) [facility] Comment on above: Postponed from 09/06 (Declined at this time) Start: 01-06-2025 DIABETES SCREEN DIABETES SCREEN [facility] Start: 12-15-2024 Influenza vaccination Influenza Vacc ine (#1) [facility] Start: 10-28-2024 Covid-19 Vaccine ( season) Covid-19 Vaccine ( season) [facility] Start: 10-18-2024 [facility] Start: 10-14-2024 Pneumococcal Vaccine : 50+ (1 of 1 - PCV) Pneumococcal Vaccine: 50+ (1 of 1 - PCV) [facility] Comment on above: Postponed from 09/06 (Declined at this time) Start: 10-01-2024 End: 10-01-2024 Patient encounter procedure 10/01/2024 4:40 PM EDT Office Visit [facility] [place] [address] [place] [address] Moon Feliz, AUTOMATIC MACHINES SUPERVISOR.EXCELLENCE SPECIALIST [address] [facility] [place] [address] follow up 4 weeks [facility] [place] Comment on above: follow up 4 weeks Start: 08-27-2024 End: 08-27-2024 Patient encounter procedure 08/27/2024 6:40 PM EDT Office Visit [facility] [place] [address] [place] [address] Moon Feliz, AUTOMATIC MACHINES SUPERVISOR.EXCELLENCE SPECIALIST [address] [place] [address] follow up 4 weeks [facility] [place] Comment on above: follow up 4 weeks Start: 08-25-2024 End: 11-24-2024 Lipid 1996 panel - Serum or Plasma LIPID PANEL BASIC Lab Routine Hyperlipidemia, unspecified hyperlipidemia type Expected: 08/25/2024 (Approximate), Expires: 11/24/2024 [facility] Work Phone: Comment on above: Expected: 08/25/2024 (Approximate), Expires: 11/24/2024 Start: 08-01-2024 Screening for osteoporosis Bone Density Screening [facility] Start: 07-30-2024 End: 07-30-2024 Patient encounter procedure 07/30/2024 6:00 PM EDT Office Visit [facility] [place] [address] [place] [address] Moon Feliz, AUTOMATIC MACHINES SUPERVISOR.EXCELLENCE SPECIALIST [address] [place] [address] follow up 1 month [facility] [place] Comment on above: follow up 1 month Start: 06-25-2024 End: 06-25-2024 Patient encounter procedure 06/25/2024 4:40 PM EDT Office Visit [facility] [place] [address] [place] [address] Moon Feliz, AUTOMATIC MACHINES SUPERVISOR.EXCELLENCE SPECIALIST [address] [place] [address] follow up 1 month [facility] [place] Comment on above: follow up 1 month Start: 05-28-2024 End: 05-28-2024 Patient encounter procedure 05/28/2024 4:20 PM EST Office Visit [facility] [place] [address] [place] [address] Moon Feliz, AUTOMATIC MACHINES SUPERVISOR.EXCELLENCE SPECIALIST [address] [place] [address] follow up 4 weeks [facility] [place] Comment on above: follow up 4 weeks Start: 04-30-2024 End: 04-30-2024 Patient encounter procedure 04/30/2024 4:20 PM EST Office Visit [facility] [place] [address] [place] [address] Moon Feliz, AUTOMATIC MACHINES SUPERVISOR.EXCELLENCE SPECIALIST [address] [place] [address] medicare wellness [facility] [place] Comment on above: medicare wellness Start: 04-30-2024 End: 07-30-2024 25-hydroxyvitamin D3 [Mass/volume] in Serum or Plasma VITAMIN D 25 HYDROXY Lab Routine Vitamin D deficiency Expected: 04/30/2024, Expires: 07/30/2024 [facility] Comment on above: Expected: 04/30/2024 , Expires: 07/30/2024 Start: 04-30-2024 End: 07-30-2024 Lipid 1996 panel - Serum or Plasma LIPID PANEL BASIC Lab Routine Hyperlipidemia, mixed Expected: 04/30/2024, Expires: 07/30/2024 [facility] Work Phone: Comment on above: Expected: 04/30/2024 , Expires: 07/30/2024 Start: 04-16-2024 Advance Directive Discussion Advance Directive Discussion [facility] Start: 03-24-2024 End: 03-24-2024 Patient encounter procedure 03/24/2024 7:20 PM EST Office Visit [facility] [place] [address] [place] [address] Frederic Luong MD [address] [place] [address] ED follow up [facility] Comment on above: ED follow up Start: 03-04-2024 End: 03-04-2024 Patient encounter procedure 03/04/2024 1:20 PM EST Office Visit [facility] [place] [address] [place] [address] Moon Feliz, AUTOMATIC MACHINES SUPERVISOR.EXCELLENCE SPECIALIST [address], [place] [address] 6 month follow up Internal Medicine [facility] Comment on above: 6 month follow up Start: 12-16-2023 Covid-19 Vaccine ( season) Covid-19 Vaccine () [facility] Start: 12-16-2023 Covid-19 Vaccine () Covid-19 Vaccine () [facility] Start: 12-16-2023 Influenza vaccination Influenza Vacc ine (#1) [facility] Start: 10-08-2023 End: 10-08-2023 Patient encounter procedure 10/08/2023 9:30 AM EDT Office Visit Orthopaedics [address] [place] [address] Pj Ryan MD [address] [facility] [place] [address] Post op right middle trigger finger release Orth[facility]ics Comment on above: Post op right middle trigger finger release Start: 09-11-2023 End: 09-11-2023 Patient encounter procedure 09/11/2023 11:45 AM EDT Office Visit Orthopaedics [address] [address] Lizz Bo PA-C [address] [place] [address] Post op right middle trigger finger release [facility]ics Comment on above: Post op right middle trigger finger release Start: 09-03-2023 End: 09-03-2023 Patient encounter procedure 09/03/2023 1:20 PM EDT Office Visit Internal Medicine [place] [address] [place] [address] Moon Feliz, AUTOMATIC MACHINES SUPERVISOR.EXCELLENCE SPECIALIST [address] [place] [address] 3 month follow up-medicare wellness Internal Medicine Steffanie Comment on above: 3 month follow up-[facility] Start: 09-02-2023 End: 12-02-2023 Cobalamin (Vitamin B12) [Mass/volume] in Serum or Plasma VITAMIN B12 BLOOD Lab Routine Memory changes Expected: 09/02/2023, Expires: 12/02/2023 [facility] Work Phone: Comment on above: Expected: 09/02/2023 , Expires: 12/02/2023 Start: 09-02-2023 End: 12-02-2023 Comprehensive metabolic 2000 panel - Serum or Plasma COMP METABOLIC PANEL Lab Routine Memory changes Expected: 09/02/2023, Expires: 12/02/2023 [facility] Work Phone: Comment on above: Expected: 09/02/2023 , Expires: 12/02/2023 Start: 09-02-2023 End: 12-02-2023 Thyrotropin [Units/volume] in Serum or Plasma TSH BLD Lab Routine Memory changes Expected: 09/02/2023, Expires: 12/02/2023 [facility] Work Phone: Comment on above: Expected: 09/02/2023 , Expires: 12/02/2023 Start: 08-31-2023 End: 08-31-2023 Admission to same day surgery center 08/31/2023 11:40 AM EDT - 08/31/2023 12:27 PM EDT Surgery [facility] [address] [place] [address] Pj Ryan MD [address] [place] [address] RELEASE TRIGGER FINGER [facility] Comment on above: RELEASE TRIGGER FING ER Start: 08-31-2023 Subsequent hospital visit by physician 08/31/2023 11:40 AM EDT Hospital Encounter [facility] [address] [place] [address] Pj Ryan MD [address] [place] [address] Trigger middle finger of right hand [M65.331] [facility] Comment on above: Trigger middle finge r of right hand [M65.331] Start: 08-31-2023 End: 08-31-2023 Tendon sheath incision RELEASE TRIGGER FINGER Trigger middle finger of right hand 08/31/2023 11:40 AM EDT [facility] OR Start: 08-02-2023 Mammography [facility] Start: 08-02-2023 Screening for malign ant neoplasm of breast Mammogram Screening [facility] Start: 07-14-2023 COVID-19 VACCINE (3 - Booster for Pfizer series) COVID-19 VACCINE (3 - Booster for Pfizer series) [facility] Comment on above: Postponed from 12/24 (Declined at this time) Start: 07-14-2023 COVID-19 VACCINE (3 - Pfizer series) COVID-19 VACCINE (3 - Pfizer series) [facility] Comment on above: Postponed from 12/24 (Declined at this time) Start: 07-01-2023 [facility] Start: 04-16-2023 Advance Directive Discussion Advance Directive Discussion [facility] Start: 04-13-2023 [facility] Start: 04-13-2023 Unlisted procedure dentoalveolar structures UNLISTED PX DENTALVLR [facility] Start: 12-15-2022 Covid-19 Vaccine ( season) Covid-19 Vaccine () [facility] Start: 12-15-2022 Influenza vaccination C [facility] Start: 07-17-2022 End: 07-18-2023 US LEG VEIN DVT UNL VAS LAB US LEG VEIN DVT [facility] Vascular Lab Routine Acute leg pain, right Expected: 07/17/2022, Expires: 07/18/2023 [facility] Work Phone: Comment on above: Expected: 07/17/2022 , Expires: 07/18/2023 Start: 07-13-2022 End: 09-12-2022 Alkaline phosphatase [Enzymatic activity/volume] in Serum or Plasma [facility] Work Phone: Comment on above: Expected: 07/13/2022 , Expires: 09/12/2022 Start: 07-13-2022 End: 09-12-2022 Basic metabolic 2000 panel - Serum or Plasma [facility] Work Phone: Comment on above: Expected: 07/13/2022 , Expires: 09/12/2022 Start: 07-13-2022 End: 09-12-2022 Erythrocyte sedimentation rate [facility] Work Phone: Comment on above: Expected: 07/13/2022 , Expires: 09/12/2022 Start: 07-13-2022 End: 09-12-2022 Fibrin D-dimer FEU [Mass/volume] in Platelet poor plasma [facility] Work Phone: Comment on above: Expected: 07/13/2022 , Expires: 09/12/2022 Start: 04-16-2022 ADVANCE DIRECTIVE DISCUSSION ADVANCE DIRECTIVE DISCUSSION [facility] Start: 01-06-2022 End: 03-08-2022 Comprehensive metabolic 2000 panel - Serum or Plasma [facility] Work Phone: Comment on above: Expected: 01/06/2022 , Expires: 03/08/2022 Start: 01-06-2022 End: 03-08-2022 Lipid 1996 panel - Serum or Plasma [facility] Work Phone: Comment on above: Expected: 01/06/2022 , Expires: 03/08/2022 Start: 12-15-2021 Influenza vaccination [facility] Start: 04-16-2021 ADVANCE DIRECTIVE DISCUSSION ADVANCE DIRECTIVE DISCUSSION [facility] Start: 03-31-2021 COVID-19 VACCINE (3 - Booster for Pfizer series) COVID-19 VACCINE (3 - Booster for Pfizer series) [facility] Start: 12-24-2020 COVID-19 VACCINE (3 - Booster for Pfizer series) COVID-19 VACCINE (3 - Booster for Pfizer series) [facility] Start: 12-15-2020 Influenza vaccination INFLUENZA (#1) [facility] Start: 04-08-2020 LIPID SCREEN LIPID SCREEN [facility] Start: 05-23-2018 Colonoscopy COLONOSCOPY [facility] Start: 05-23-2018 COLORECTAL CANCER SCREENING COLORECTAL CANCER SCREENING [facility] Start: 11-03-2017 DIABETES SCREEN DIABETES SCREEN [facility] Start: 2017 BONE DENSITY BONE DENSITY [facility] Start: 2017 Pneumococcal Vaccine : 65+ (1 - PCV) Pneumococcal Vaccine: 65+ (1 - PCV) [facility] Start: 2017 Pneumococcal Vaccine : 65+ (1 of 1 - PCV) Pneumococcal Vaccine: 65+ (1 of 1 - PCV) [facility] Start: 2017 PNEUMOCOCCAL: 65+ (1 - PCV) PNEUMOCOCCAL: 65+ (1 - PCV) [facility] Start: 2017 PNEUMOVAX AGE 65 AND OVER WITH 5YR LOOKBACK (#1) PNEUMOVAX AGE 65 AND OVER WITH 5YR LOOKBACK (#1) [facility] Start: 03-09-2017 Urine microalbumin profile DTAP,TDAP,TD (2 - Td or Tdap) [facility] Start: 02-06-2015 Mammography MAMMOGRAM [facility] Start: 2012 RSV Vaccine (1 - 1-d ose 60+ series) RSV Vaccine (1 - 1-dose 60+ series) [facility] Start: 2002 Pneumococcal Vaccine : 50+ (1 of 1 - PCV) Pneumococcal Vaccine: 50+ (1 of 1 - PCV) [facility] Start: 2002 SHINGRIX VACCINE (1 of 2) SHINGRIX VACCINE (1 of 2) [facility] Start: 1997 COLOGUARD (FIT-DNA) COLOGUARD (FIT-D NA) [facility] Start: [address] [facility] Start: 1997 FECAL OCCULT BLOOD FECAL OCCULT BLOO D [facility] Start: 1997 Screening for malign ant neoplasm of colon [facility] Start: 1997 SIGMOIDOSCOPY SIGMOIDOSCOPY [facility] Start: 1970 Anxiety Screening Anxiety Screening [facility] Start: 1970 Depression Screening Depression Scre ening [facility] Bacteria identified in Urine by Culture URINE CULTURE Microbiology Routine Gross hematuria 01/21/2024 10:53 AM EDT [facility] Work Phone: Bacteria identified in Urine by Culture BACTERIAL CULTURE, URINE Microbiology Routine Urinary urgency 04/24/2024 1:36 PM EST [facility] Work Phone: End: 08-12-2023 DXA-AXIAL SKELETON DXA-AXIAL SKELETON Radiology Routine Screening for osteoporosis 1 Occurrences starting 07/13/2022 until 08/12/2023 [facility] Work Phone: Comment on above: 1 Occurrences starti ng 07/13/2022 until 08/12/2023 End: 08-12-2023 BEULAH SCREENING BEULAH SCREENING Radiology Routine Encounter for screening mammogram for malignant neoplasm of breast 1 Occurrences starting 07/13/2022 until 08/12/2023 [facility] Work Phone: Comment on above: 1 Occurrences starti ng 07/13/2022 until 08/12/2023 End: 10-04-2024 MG Breast Screening BEULAH SCREENING Radiology Routine Encounter for screening mammogram for breast cancer 1 Occurrences starting 09/05/2023 until 10/04/2024 [facility] Work Phone: Comment on above: 1 Occurrences starti ng 09/05/2023 until 10/04/2024 Patient Education [facility] Work Phone: Patient referral [facility] Work Phone: End: 07-14-2023 Screening colonoscopy COLONOSCOPY SCREENING Endoscopy Routine Special screening for malignant neoplasms, colon 1 Occurrences starting 07/13/2022 until 07/14/2023 [facility] Work Phone: Comment on above: 1 Occurrences starti ng 07/13/2022 until 07/14/2023 End: 11-11-2022 Screening mammography bi 2-view breast inc cad BEULAH SCREENING Radiology Routine Encounter for screening mammogram for breast cancer 1 Occurrences starting 10/12/2021 until 11/11/2022 [facility] Work Phone: Comment on above: 1 Occurrences starti ng 10/12/2021 until 11/11/2022 Urinalysis complete panel - Urine URINALYSIS, WITH MICROSCOPIC Lab Routine Gross hematuria 01/21/2024 10:53 AM EDT [facility] End: 08-12-2023 XR HIP GENERAL 3V PELV/AP/LAT RIGHT XR HIP GENERAL 3V PELV/AP/LAT RIGHT Radiology Routine Acute leg pain, right 1 Occurrences starting 07/13/2022 until 08/12/2023 [facility] Work Phone: Comment on above: 1 Occurrences starti ng 07/13/2022 until 08/12/2023 XR HIP GENERAL 3V PELV/AP/LAT RIGHT XR HIP GENERAL 3V PELV/AP/LAT RIGHT Radiology Routine Acute leg pain, right 07/13/2022 1:21 PM EDT [facility] Work Phone: End: 08-12-2023 XR KNEE GENERAL 4V AP BOTH/PA BOTH/LAT/MERC RIGHT XR KNEE GENERAL 4V AP BOTH/PA BOTH/LAT/MERC RIGHT Radiology Routine Acute leg pain, right 1 Occurrences starting 07/13/2022 until 08/12/2023 [facility] Work Phone: Comment on above: 1 Occurrences starti ng 07/13/2022 until 08/12/2023 XR KNEE GENERAL 4V A P BOTH/PA BOTH/LAT/MERC RIGHT XR KNEE GENERAL 4V AP BOTH/PA BOTH/LAT/MERC RIGHT Radiology Routine Acute leg pain, right 07/13/2022 1:21 PM EDT [facility] Work Phone: [facility] Immunizations Immunization Date Immunization Notes Care Provider Jena alarcon 04-30-2024 COVID-19 vaccine, ag e 12+ yr [facility] Moon Feliz AUTOMATIC MACHINES SUPERVISOR.EXCELLENCE SPECIALIST Work Phone: [facility] 04-30-2024 influenza, high dose seasonal, preservative-free Moon Feliz APRN.EXCELLENCE SPECIALIST Work Phone: [facility] 04-30-2024 influenza virus vaccine, unspecified formulation Sher Carlson RN [facility] 06-04-2023 influenza (HD-IIV4) vaccine, age 65+ yr, high dose, quadrivalent, PF (FLUZONE HIGH-DOSE) Frederic Luong MD Work Phone: [facility] 06-04-2023 influenza virus vaccine, unspecified formulation Marlon Brooks DIXIE [facility] 03-31-2022 tetanus toxoid, reduced diphtheria toxoid, and acellular pertussis vaccine, adsorbed Agus Toribio AUTOMATIC MACHINES SUPERVISOR.EXCELLENCE SPECIALIST Work Phone: [facility] 01-06-2022 influenza, high-dose , quadrivalent vaccine (FLUZONE HIGH DOSE QUADRIVALENT) Moon Barrington AUTOMATIC MACHINES SUPERVISOR.EXCELLENCE SPECIALIST Work Phone: [facility] Work Phone: 01-06-2022 influenza virus vaccine, unspecified formulation Alen Arroyo MD Work Phone: [facility] 01-13-2015 influenza, injectabl e, quadrivalent, contains preservative Riaz Pendlebury AUTOMATIC MACHINES SUPERVISOR.EXCELLENCE SPECIALIST Work Phone: [facility] 12-29-2013 influenza, seasonal, injectable Riaz Pendlebury AUTOMATIC MACHINES SUPERVISOR.EXCELLENCE SPECIALIST Work Phone: [facility] 01-29-2013 Influenza virus vaccine [facility] 01-29-2013 influenza, seasonal, injectable Agus Toribio AUTOMATIC MACHINES SUPERVISOR.EXCELLENCE SPECIALIST Work Phone: [facility] 01-29-2013 influenza, seasonal, injectable, preservative free Agus Toribio AUTOMATIC MACHINES SUPERVISOR.EXCELLENCE SPECIALIST Work Phone: [facility] 03-09-2007 tetanus toxoid, reduced diphtheria toxoid, and acellular pertussis vaccine, adsorbed Riaz Pendlebury AUTOMATIC MACHINES SUPERVISOR.[facility] Work Phone: [facility] Work Phone: Payers Date Payer Category Payer Medicare (Managed Care) [employer] G O[employer]US [id number] 2024 Private Health Insurance [facility] HMO [id number] 2024 Unknown [id number] 2023 Self-pay [id number] 2019 Medicare HU[employer]NA MEDICARE [employer] GOLD PLUS [id number] 2019-Present [phone] [address] [address] [place] [address] [facility] [place] [id number] 2019 Medicare [id number] 2019 Private Health Insurance [id number] Medicare [id number] Private Health Insurance [id number] Unknown [id number] Unknown [id number] Unknown [id number] Unknown [id number] Social History Date Type Detail Facility Start: 01-06-2022 End: 10-18-2024 Tobacco smoking status NHIS Never smoked tobacco [facility] Work Phone: Start: 07-05-2021 End: 11-17-2021 Alcohol intake Current drinker of alcohol (finding) [facility] Start: 10-08-2012 History SDOH Alcohol Comment very rarely [facility] Start: 1950 Sex Assigned At Not on file C [facility] Start: 06-25-2021 End: 01-06-2022 Exposure to SARS-CoV-2 (event) Not sure [facility] Work Phone: Start: 08-12-2021 End: 07-01-2023 Tobacco smoking status NHIS Unknown if ever smoked [facility] Start: 11-15-2018 None [facility] Start: 02-07-2021 Homeless [facility] Start: 11-15-2018 Non-smoker [facility] Start: 1950 Sex Assigned At Female W [facility] Start: 01-06-2022 Tobacco use and exposure Smokeless tobacco non-user [facility] Work Phone: Start: 07-20-2022 History SDOH Physica l Activity DPW 0 [facility] Start: 07-20-2022 History SDOH Stress 3 [facility] Start: 07-20-2022 End: 04-25-2024 History of Social function [facility] Start: 07-20-2022 End: 04-25-2024 Social connection and isolation panel [facility] In a typical week, h ow many times do you talk on the telephone with family, friends, or neighbors? Patient refused [facility] Are you now , , , , never or living with a partner? Refused [facility] Do you feel stress - tense, restless, nervous, or anxious, or unable to sleep at night because your mind is troubled all the time - these days [OSQ] To some extent [facility] (I/We) worried wheth er (my/our) food would run out before (I/we) got money to buy more. DK or Refused [facility] Start: 12-01-2022 End: 08-27-2024 Alcohol intake Ex-drinker (finding) [facility] Has [employer], or [employer] threatened to shut off services in your home in past 12Mo No [facility] Are you now , , , , never or living with a partner? [facility] How often to you hav e a drink containing alcohol? Never [facility] Do you feel stress - tense, restless, nervous, or anxious, or unable to sleep at night because your mind is troubled all the time - these days [OSQ] Very much [facility] (I/We) worried wheth er (my/our) food would run out before (I/we) got money to buy more. Never true [facility] Functional Status Date Assessment Result Facility 11-03-2014 Are you deaf, or do you have serious difficulty hearing No 11/03/2014 8:11 AM Elana Peacock LPN No [facility] 11-03-2014 Are you blind, or do you have serious difficulty seeing, even when wearing glasses No 11/03/2014 8:11 AM Elana Peacock LPN No [facility] 11-03-2014 Do you have serious difficulty walking or climbing stairs No 11/03/2014 8:11 AM Elana Peacock LPN No [facility] 11-03-2014 Do you have difficul ty dressing or bathing No 11/03/2014 8:11 AM Elana Peacock LPN No [facility] 11-03-2014 Because of a physica l, mental, or emotional condition, do you have difficulty doing errands alone such as visiting a physician's office or shopping No 11/03/2014 8:11 AM Elana Peacock LPN No [facility] Mental Status Date Assessment Result Facility 11-03-2014 Because of a physica l, mental, or emotional condition, do you have serious difficulty concentrating, remembering, or making decisions No 11/03/2014 8:11 AM EDT Elana Villaseñor LPN No [facility] Clinical Notes 08-14-2014 to 10-22-2024 Dione Chappell MA - 10/20/2024 3:40 PM Sher Peters RN - 10/20/2024 2:54 PM Moon Finney, AUTOMATIC MACHINES SUPERVISOR.EXCELLENCE SPECIALIST - 08/27/2024 7:08 PM Moon Finney APRN.EXCELLENCE SPECIALIST - 07/30/2024 6:02 PM EDT Note Date & Type Note Facility 10-22-2024 Note HNO ID: [id number] Author: ANN NIXON, Rony Service: ? Author Type: Patient Rag Sorter And Cutter Type: Progress Notes Filed: 10/22/2024 08:11 Note Text: POPULATION HEALTH NAVIGATION OUTREACH Action/FYI CM Pool Message: Type: ACM We are forwarding this patient to Network Navigation to schedule a PCP follow-up appointment following recent 10/18/2024 [place] ER visit. ED Follow up [facility] 10/18/24 Dental abscess/jaw pain care gaps: Last office visit 08/27/24. Last wellness visit 04/30/24. Follow up was due in September. Mammogram Screening - Ordered 08/05/24. Outcome: Left message on patient's voice mail to return my call. MyChart message sent. 2nd attempt: left message. Reason for Outreach Community Monitoring/Network Navigator Pools AND Phone Line: CM Pool Care Gaps due: Follow-up Appointment Breast Cancer Screening Patient Contacted: Unable or unnecessary to reach patient: Left message Navigation Signature: Ann Nixon October 22, 2024 8:11 AM [facility] 10-20-2024 Note HNO ID: [id number] Author: DIONE CHAPPELL MA Service: ? Author Type: Entry Level Electrical Engineer Type: Progress Notes Filed: 10/20/2024 15:48 Note Text: POPULATION HEALTH NAVIGATION OUTREACH Action/FYI CM Pool Message: Type: ACM We are forwarding this patient to Network Navigation to schedule a PCP follow-up appointment following recent 10/18/2024 [place] ER visit. ED Follow up [facility] 10/18/24 Dental abscess/jaw pain HM care gaps: Last office visit 08/27/24. Last wellness visit 04/30/24. Follow up was due in September. Mammogram Screening - Ordered 08/05/24. Outcome: Left message on patient's voice mail to return my call. MyChart message sent. Reason for Outreach Community Monitoring/Network Navigator Pools AND Phone Line: CM Pool Care Gaps due: Follow-up Appointment Breast Cancer Screening Patient Contacted: Unable or unnecessary to reach patient: Left message MyChart message sent Navigation Signature: Dione Chappell MA October 20, 2024 3:40 PM [facility] 10-20-2024 History of Present illness Narrative POPULATION HEALTH NAVIGATION OUTREACH Action/FYI CM Pool Message: Type: ACM We are forwarding this patient to Network [employer] to schedule a PCP follow-up appointment following recent 10/18/2024 [place] ER visit. ED Follow up [facility] 10/18/24 Dental abscess/jaw pain HM care gaps: Last office visit 08/27/24. Last wellness visit 04/30/24. Follow up was due in September. Mammogram Screening - Ordered 08/05/24. Outcome: Left message on patient's voice mail to return my call. MyChart message sent. Reason for Outreach Community Monitoring/Network Navigator Pools & Phone Line: CM Pool Care Gaps due: Follow-up Appointment Breast Cancer Screening Patient Contacted: Unable or unnecessary to reach patient: Left message [employer] message sent Navigation Signature: Dione Chappell MA October 20, 2024 3:40 PM ACM CECILY RN Patient identified by name and date of . Reason for review or outreach: Chart Review Cecily Priority Emergency Department Utilization REQUESTED ACTION/FYI: A follow-up appointment is not noted in patient's record. We are forwarding this patient to [employer] to schedule a PCP follow-up appointment following recent 10/18/2024 [place] ER visit. Thank you! ED DIAGNOSES/REASON(S) FOR ED USE: 10/18/2024 [place] ER for dental abscess/jaw pain OTHER FINDINGS/SUMMARY: ER visit shoes sialolthiasis os submandibular gland, infection. Report home temperature. Vitals obtained. Prescribed Percocet upon DC and antibiotic treatment. Patient Attributed To: CAROLINEE Payer: Lulu COLIN Action Taken: Referrals/Routed: Population Health Navigation: Appointment. Router to [facility] [[id number]] Contact made with patient: No, Chart review only. Signature: Sher Carlson RN documented in this encounter [facility] 10-20-2024 Note HNO ID: [id number] Author: SHER CARLSON RN Service: ? Author Type: Registered Nurse Type: Progress Notes Filed: 10/20/2024 14:57 Note Text: ACM CECILY RN Patient identified by name and date of . Reason for review or outreach: Chart Review Cecily Priority Emergency Department Utilization REQUESTED ACTION/FYI: A follow-up appointment is not noted in patient's record. We are forwarding this patient to Network Navigation to schedule a PCP follow-up appointment following recent 10/18/2024 [place] ER visit. Thank you! ED DIAGNOSES/REASON(S) FOR ED USE: 10/18/2024 [place] ER for dental abscess/jaw pain OTHER FINDINGS/SUMMARY: ER visit shoes sialolthiasis os submandibular gland, infection. Report home temperature. Vitals obtained. Prescribed Percocet upon DC and antibiotic treatment. Patient Attributed To: HAO Payer: Lulu COLIN Action Taken: Referrals/Routed: Population Health Navigation: Appointment. Router to [facility] [[id number]] Contact made with patient: No, Chart review only. Signature: Sher Carlson RN [facility] 10-20-2024 Note Patient Outreach (AM [facility] RENATE INFANTE I ([id number]) 1950 F Date Time Provider Department 10/20/24 SHER CARLSONCMG During your visit today, we recorded the following information about you: Sher Carlson RN 10/20/2024 2:57 PM Signed ACM CECILY RN Patient identified by name and date of . Reason for review or outreach: Chart Review Cecily Priority Emergency Department Utilization REQUESTED ACTION/FYI: A follow-up appointment is not noted in patient's record. We are forwarding this patient to Network Navigation to schedule a PCP follow-up appointment following recent 10/18/2024 [place] ER visit. Thank you! ED DIAGNOSES/REASON(S) FOR ED USE: 10/18/2024 [place] ER for dental abscess/jaw pain OTHER FINDINGS/SUMMARY: ER visit shoes sialolthiasis os submandibular gland, infection. Report home temperature. Vitals obtained. Prescribed Percocet upon DC and antibiotic treatment. Patient Attributed To: CAROLINEE Payer: Lulu COLIN Action Taken: Referrals/Routed: Population Health Navigation: Appointment. Router to [facility] PO[facility] [[id number]] Contact made with patient: No, Chart review only. Signature: TRACY Ash Lisa L, MA 10/20/2024 3:48 PM Signed POPULATION HEALTH NAVIGATION OUTREACH Action/FYI CM Pool Message: Type: ACM We are forwarding this patient to Network Navigation to schedule a PCP follow-up appointment following recent 10/18/2024 [place] ER visit. ED Follow up [facility] 10/18/24 Dental abscess/jaw pain HM care gaps: Last office visit 08/27/24. Last wellness visit 04/30/24. Follow up was due in September. Mammogram Screening - Ordered 08/05/24. Outcome: Left message on patient's voice mail to return my call. [employer] message sent. Reason for Outreach [facility] Monitoring/Network Navigator Pools AND Phone Line: CM Pool Care Gaps due: Follow-up Appointment Breast Cancer Screening Patient Contacted: Unable or unnecessary to reach patient: Left message [employer] message sent Navigation Signature: Dione Chappell MA October 20, 2024 3:40 PM Ann Nixon 10/22/2024 8:11 AM Signed POPULATION HEALTH NAVIGATION OUTREACH Action/FYI CM Pool Message: Type: ACM We are forwarding this patient to Network Navigation to schedule a PCP follow-up appointment following recent 10/18/2024 [facility] ER visit. ED Follow up [facility] 10/18/24 Dental abscess/jaw pain care gaps: Last office visit 08/27/24. Last wellness visit 04/30/24. Follow up was due in September. Mammogram Screening - Ordered 08/05/24. Outcome: Left message on patient's voice mail to return my call. MyChart message sent. 2nd attempt: left message. Reason for Outreach [facility] Monitoring/Network Navigator Pools AND Phone Line: CM Pool Care Gaps due: Follow-up Appointment Breast Cancer Screening Patient Contacted: Unable or unnecessary to reach patient: Left message Navigation Signature: Ann Nixon October 22, 2024 8:11 AM Allergies As of Date: 10/20/2024 Noted Allergy Reaction MELOXICAM 10/21/2012 14 - Other: See Comments Comments: muscle tremors/spasms SEPTRA (SULFAMETHOXAZOLE-TRIMETHO*06/04 4 - Hives Date Reviewed: 08/27/2024 Reviewed by: Moon Feliz APRN.EXCELLENCE SPECIALIST - Fully Assessed Reason for Visit: ACM CECILY RN [[id number]] Cmt: Chart review per payor request Prescriptions as of 10/22/2024 - propranolol ER (INDERAL LA) 60 mg 24 hr capsule Take 1 capsule by mouth once daily. - venlafaxine ER (EFFEXOR XR) 150 mg 24 hr capsule Take 1 capsule by mouth once daily. - amitriptyline (ELAVIL) 10 mg tablet Take 1 tablet by mouth at bedtime as needed for sedation. - ergocalciferol 50,000 unit capsule (VITAMIN D2, DRISDOL) Take 1 capsule by mouth two times a week. - atorvastatin (LIPITOR) 20 mg tablet Take 1 tablet by mouth once daily. - alendronate (FOSAMAX) 70 mg tablet Take 1 tablet by mouth one time a week. Take with a full glass of water, on an empty stomach; do NOT lie down for 30minutes. - diclofenac, EC, (VOLTAREN) 75 mg EC tablet Take 1 tablet by mouth two times a day. For pain/inflammation. Take with food. Meds Comments as of 06/15/2010: Problem List As Of Date 10/20/2024 Noted Resolved Irritable bowel syndrome [K58.9] 11/21/2005 03/24/2024 HEADACHE [R51] 11/21/2005 01/02/2006 Mgrn Wo Sarah Wo Intrc Mgr [G43.009] 01/02/2006 10/21/2013 Carpal tunnel syndrome [G56.00] 03/05/2006 09/05/2011 Pain in joint, lower leg [M25.569] 03/05/2006 03/24/2024 Lumbago [M54.50] 07/16/2006 03/24/2024 Diarrhea [R19.7] 05/10/2007 11/26/2018 Acute Gastritis without Mention of Hemorrhage [*05/10/2007 09/05/2011 Benign neoplasm of colon [D12.6] 11/22/2007 03/24/2024 Internal Hemorrhoids without Mention of Complic*11/22/2007 09/05/2011 Pain in Soft Tissues of Limb [M79.609] 07/09/2008 09/05/2011 Calcaneal spur [M77.30] 07/09/2008 09/05/2011 Hyperl (more content not included)... [facility] 10-18-2024 Discharge summary [facility] 09-05-2024 Note HNO ID: [id number] Author: ?, ?, ? Service: ? Author Type: ? Type: Progress Notes Filed: 09/05/2024 13:02 Note Text: POPULATION HEALTH NAVIGATION OUTREACH Action/ Patient outreach for Hcc gaps; Mammogram, AWV. Lvm and sent mychart to close gaps. Updated appointment notes. Reason for Outreach Care Gap/HCC or Scheduling Wellness Visits Care Gaps due: Medicare Annual Wellness Visit Breast Cancer Screening Patient Contacted: Unable or unnecessary to reach patient: Left message MyChart message sent HCC related Updated appointment notes Navigation Signature: Jessica Pinto [facility] September 05, 2024 12:47 PM [facility] 09-05-2024 Note Patient Outreach (JOY TNAV) RENATE INFANTE I ([id number]) 1950 F Date Time Provider Department 09/05/24 FREDERIC LUONG During your visit today, we recorded the following information about you: Blair ChuckyJessica 09/05/2024 1:02 PM Signed POPULATION HEALTH NAVIGATION OUTREACH Action/FYI Patient outreach for Hcc gaps; Mammogram, AWV. Lvm and sent mychart to close gaps. Updated appointment notes. Reason for Outreach Care Gap/HCC or Scheduling Wellness Visits Care Gaps due: Medicare Annual Wellness Visit Breast Cancer Screening Patient Contacted: Unable or unnecessary to reach patient: Left message MyChart message sent HCC related Updated appointment notes Navigation Signature: Jessica Pinto Chucky September 05, 2024 12:47 PM Allergies As of Date: 09/05/2024 Noted Allergy Reaction MELOXICAM 10/21/2012 14 - Other: See Comments Comments: muscle tremors/spasms SEPTRA (SULFAMETHOXAZOLE-TRIMETHO*06/04 4 - Hives Date Reviewed: 08/27/2024 Reviewed by: Moon Feliz APRN.EXCELLENCE SPECIALIST - Fully Assessed Reason for Visit: Population Health Navigation Outreach [[id number]] Cmt: Lulu Valiente Prescriptions as of 09/05/2024 - propranolol ER (INDERAL LA) 60 mg 24 hr capsule Take 1 capsule by mouth once daily. - venlafaxine ER (EFFEXOR XR) 150 mg 24 hr capsule Take 1 capsule by mouth once daily. - amitriptyline (ELAVIL) 10 mg tablet Take 1 tablet by mouth at bedtime as needed for sedation. - ergocalciferol 50,000 unit capsule (VITAMIN D2, DRISDOL) Take 1 capsule by mouth two times a week. - atorvastatin (LIPITOR) 20 mg tablet Take 1 tablet by mouth once daily. - alendronate (FOSAMAX) 70 mg tablet Take 1 tablet by mouth one time a week. Take with a full glass of water, on an empty stomach; do NOT lie down for 30minutes. - diclofenac, EC, (VOLTAREN) 75 mg EC tablet Take 1 tablet by mouth two times a day. For pain/inflammation. Take with food. Meds Comments as of 06/15/2010: Problem List As Of Date 09/05/2024 Noted Resolved Irritable bowel syndrome [K58.9] 11/21/2005 03/24/2024 HEADACHE [R51] 11/21/2005 01/02/2006 Mgrn Wo Aura Wo Intrc Mgr [G43.009] 01/02/2006 10/21/2013 Carpal tunnel syndrome [G56.00] 03/05/2006 09/05/2011 Pain in joint, lower leg [M25.569] 03/05/2006 03/24/2024 Lumbago [M54.50] 07/16/2006 03/24/2024 Diarrhea [R19.7] 05/10/2007 11/26/2018 Acute Gastritis without Mention of Hemorrhage [*05/10/2007 09/05/2011 Benign neoplasm of colon [D12.6] 11/22/2007 03/24/2024 Internal Hemorrhoids without Mention of Complic*11/22/2007 09/05/2011 Pain in Soft Tissues of Limb [M79.609] 07/09/2008 09/05/2011 Calcaneal spur [M77.30] 07/09/2008 09/05/2011 Hyperlipidemia, mixed [E78.2] 09/29/2011 Vitamin D deficiency [E55.9] 09/18/2012 Stress incontinence, female [N39.3] 10/21/2013 Clostridium difficile diarrhea [A04.72] 08/14/2014 11/26/2018 Insomnia [G47.00] 05/04/2015 03/24/2024 Situational mixed anxiety and depressive disord*05/04/2015 Nonspecific abnormal toxicology (inconsistent) *05/05/2015 03/24/2024 Age-related osteoporosis without current pathol*08/11/2022 History of colonic polyps [Z86.0100] 12/28/2022 03/24/2024 Memory changes [R41.3] 06/04/2023 Encounter Status:Closed by JESSICA DUGAN on 09/05/24 [facility] 08-27-2024 Note HNO ID: [id number] Author: MOON FELIZ APRN.EXCELLENCE SPECIALIST Service: ? Author Type: Nurse Practitioner Type: Progress Notes Filed: 08/27/2024 19:14 Note Text: CC: Patient presents with: Follow Up: Depression/insomnia HPI Recording using ambient AI software for draft documentation of the visit was discussed with the patient/authorized customer solutions representative; all questions welcomed and answered. Patient/authorized customer solutions representative agreed to proceed Renate is a 73-year-old female presenting for follow-up on medication management. Renate was recently increased to Effexor 150 mg approximately one month ago for anxiety and depression. She reports significant improvement in both conditions, describing them as more manageable and providing her with a quiet space. However, she notes that the medication does not eliminate all stressors, particularly those related to her household environment. She occasionally wishes the medication were stronger but overall is satisfied with its effects. Renate reports the onset of tremors, which began after starting Effexor and have worsened since the dosage increase. The tremors are constant and affect her entire body, including her hands and legs. She denies any internal sensations associated with the tremors, describing them as external shakes. The tremors are noticeable to her and have become a source of embarrassment for her. She denies any prior history of tremors before starting Effexor. Review of Systems Neurological: Negative for dizziness, seizures, syncope, facial asymmetry, speech difficulty, weakness, light-headedness, numbness and headaches. PAST MEDICAL HISTORY Diagnosis Date Acute gastritis without mention of hemorrhage Age-related osteoporosis without current pathological fracture 08/11/2022 Allergic rhinitis, cause unspecified Anemia, unspecified 11/21/2005 Anxiety and depression 05/04/2015 Arthritis Benign neoplasm of colon Carpal tunnel syndrome 03/05/2006 Cervicalgia 1998 Clostridium difficile diarrhea 08/14/2014 Diarrhea Diarrhea Headache(784.0) 11/21/2005 Insomnia 05/04/2015 Internal hemorrhoids without mention of complication Irritable bowel syndrome 11/21/2005 Lumbago 07/16/2006 narcotic contract signed,scanned in and in paper chart 07/28/09. Migraine without aura, without mention of intractable migraine without mention of status migrainosus Nonspecific abnormal toxicology (inconsistent) 05/05/2015 Pain in joint, lower leg 03/05/2006 PAST SURGICAL HISTORY Procedure Laterality Date APPENDECTOMY ARTHROSCOPY KNEE DIAGNOSTIC W/WO SYNOVIAL BX SPX 04/16/1987 Arthroscopy, knee, Dr. Griggs COLONOSCOPY 12/28/2022 repeat in 10 years COLONOSCOPY FLX DX W/COLLJ SPEC WHEN PFRMD 05/17/2003 Colonoscopy, Dr. Disla COLONOSCOPY FLX DX W/COLLJ SPEC WHEN PFRMD 05/23/2013 Colonoscopy COLSC FLX W/RMVL OF TUMOR POLYP LESION SNARE TQ 11/22/2007 EGD TRANSORAL BIOPSY SINGLE/MULTIPLE 05/10/2007 ESOPHAGOGASTRODUODENOSCOPY TRANSORAL DIAGNOSTIC 09/14/1994 EGD INCISE FINGER TENDON SHEATH Right 08/31/2023 Right middle trigger finger release LAMINECTOMY W/O FFD 1/2 VERT SEG LUMBAR [...] W/REMOVAL TUBES/OV 04/16/2012 ALLERGIES Meloxicam and Septra [Sulfamethoxazole-Trimethoprim] MEDICATIONS venlafaxine ER (EFFEXOR XR) 150 mg 24 hr capsule Take 1 capsule by mouth once daily. amitriptyline (ELAVIL) 10 mg tablet Take 1 tablet by mouth at bedtime as needed for sedation. ergocalciferol 50,000 unit capsule (VITAMIN D2, DRISDOL) Take 1 capsule by mouth two times a week. atorvastatin (LIPITOR) 20 mg tablet Take 1 tablet by mouth once daily. alendronate (FOSAMAX) 70 mg tablet Take 1 tablet by mouth one time a week. Take with a full glass of water, on an empty stomach; do NOT lie down for 30minutes. diclofenac, EC, (VOLTAREN) 75 mg EC tablet Take 1 tablet by mouth two times a day. For pain/inflammation. Take with food. propranolol ER (INDERAL LA) 60 mg 24 hr capsule Take 1 capsule by mouth once daily. FAMILY HISTORY Problem Relation Age of Onset Hypertension Mother Diabetes Mother Heart Mother Congestive Heart Failure Cataract Mother COPD Father of COPD Coronary Artery Disease Father Heart Father Cataract Sister Cataract Brother (more content not included)... [facility] 08-27-2024 History of Presen t illness Narrative CC: Patient presents with: Follow Up: Depression/insomnia HPI Recording using ambient [employer] software for draft documentation of the visit was discussed with the patient/authorized customer solutions representative; all questions welcomed and answered. Patient/authorized customer solutions representative agreed to proceed Renate is a 73-year-old female presenting for follow-up on medication management. Renate was recently increased to Effexor 150 mg approximately one month ago for anxiety and depression. She reports significant improvement in both conditions, describing them as more manageable and providing her with a quiet space. However, she notes that the medication does not eliminate all stressors, particularly those related to her household environment. She occasionally wishes the medication were stronger but overall is satisfied with its effects. Renate reports the onset of tremors, which began after starting Effexor and have worsened since the dosage increase. The tremors are constant and affect her entire body, including her hands and legs. She denies any internal sensations associated with the tremors, describing them as external shakes. The tremors are noticeable to her and have become a source of embarrassment for her. She denies any prior history of tremors before starting Effexor. Review of Systems Neurological: Negative for dizziness, seizures, syncope, facial asymmetry, speech difficulty, weakness, light-headedness, numbness and headaches. PAST MEDICAL HISTORY Diagnosis Date Acute gastritis without mention of hemorrhage Age-related osteoporosis without current pathological fracture 08/11/2022 Allergic rhinitis, cause unspecified Anemia, unspecified 11/21/2005 Anxiety and depression 05/04/2015 Arthritis Benign neoplasm of colon Carpal tunnel syndrome 03/05/2006 Cervicalgia 1998 Clostridium difficile diarrhea 08/14/2014 Diarrhea Diarrhea Headache(784.0) 11/21/2005 Insomnia 05/04/2015 Internal hemorrhoids without mention of complication Irritable bowel syndrome 11/21/2005 Lumbago 07/16/2006 narcotic contract signed,scanned in and in paper chart 07/28/09. Migraine without aura, without mention of intractable migraine without mention of status migrainosus Nonspecific abnormal toxicology (inconsistent) 05/05/2015 Pain in joint, lower leg 03/05/2006 PAST SURGICAL HISTORY Procedure Laterality Date APPENDECTOMY ARTHROSCOPY KNEE DIAGNOSTIC W/WO SYNOVIAL BX SPX 04/16/1987 Arthroscopy, knee, Dr. Griggs COLONOSCOPY 12/28/2022 repeat in 10 years COLONOSCOPY FLX DX W/COLLJ SPEC WHEN PFRMD 05/17/2003 Colonoscopy, Dr. Disla COLONOSCOPY FLX DX W/COLLJ SPEC WHEN PFRMD 05/23/2013 Colonoscopy COLSC FLX W/RMVL OF TUMOR POLYP LESION SNARE TQ 11/22/2007 EGD TRANSORAL BIOPSY SINGLE/MULTIPLE 05/10/2007 ESOPHAGOGASTRODUODENOSCOPY TRANSORAL DIAGNOSTIC 09/14/1994 EGD INCISE FINGER TENDON SHEATH Right 08/31/2023 Right middle trigger finger release LAMINECTOMY W/O FFD / VERT SEG LUMBAR 04/16/1985 Laminectomy, lumbar L5,S1 disc/fusion LEFT HEART CATH,PERCUTANEOUS 07/15/1996 Cardiac cath, L heart- patient reports as normal LEFT HEART CATH,PERCUTANEOUS 08/15/2011 Cardiac cath, L heart, WNL LIG/TRNSXJ FLP TUBE ABDL/VAG APPR UNI/BI Tubal ligation NEUROPLASTY &/TRANSPOS MEDIAN NRV CARPAL TUNNE 1999 and 2006 Carpal tunnel decomp, right OPEN REPAIR OF ROTATOR CUFF ACUTE 04/16/1984 Rotator cuff repair PAST SURGICAL HISTORY OF 03/02/2009 Left plantar fasciotomy PAST SURGICAL HISTORY OF Left 08/08/2021 Lens Implant PAST SURGICAL HISTORY OF Right 08/25/2021 Right lens implant TONSILLECTOMY PRIMARY/SECONDARY <AGE 14 1960s Tonsillectomy VAGINAL HYSTERECTOMY W/REMOVAL TUBES/OV 04/16/2012 ALLERGIES Meloxicam and Septra [Sulfamethoxazole-Trimethoprim] MEDICATIONS venlafaxine ER (EFFEXOR XR) 150 mg 24 hr capsule Take 1 capsule by mouth once daily. amitriptyline (ELAVIL) 10 mg tablet Take 1 tablet by mouth at bedtime as needed for sedation. ergocalciferol 50,000 unit capsule (VITAMIN D2, DRISDOL) Take 1 capsule by mouth two times a week. atorvastatin (LIPITOR) 20 mg tablet Take 1 tablet by mouth once daily. alendronate (FOSAMAX) 70 mg tablet Take 1 tablet by mouth one time a week. Take with a full glass of water, on an empty stomach; do NOT lie down for 30minutes. diclofenac, EC, (VOLTAREN) 75 mg EC tablet Take 1 tablet by mouth two times a day. For pain/inflammation. Take with food. propranolol ER (INDERAL LA) 60 mg 24 hr capsule Take 1 capsule by mouth once daily. FAMILY HISTORY Problem Relation Age of Onset Hypertension Mother Diabetes Mother Heart Mother Congestive Heart Failure Cataract Mother COPD Father of COPD Coronary Artery Disease Father Heart Father Cataract Sister Cataract Brother Cataract Brother Asthma Brother 2 brothers Cancer Brother metastatic, etiol? Social History Tobacco Use Smoking status: Never Smokeless tobacco: Never Vaping Use Vaping status: Never Used Substance Use Topics Alcohol use: Not Currently Drug use: No BP 132/82 Pulse 82 Resp 12 Wt 56.6 kg (124 lb 12.5 oz) LMP 07/03/2005 SpO2 98% BMI 24.66 kg/m Physical Exam Vitals reviewed. Constitutional: Appearance: Normal appearance. Cardiovascular: Rate and Rhythm: Normal rate and regular rhythm. Heart sounds: Normal heart sounds. Pulmonary: Effort: Pulmonary effort is normal. Breath sounds: Normal breath sounds. No wheezing, rhonchi or rales. Skin: General: Skin is warm and dry. Neurological: Mental Status: She is alert and oriented to person, place, and time. Cranial Nerves: Cranial nerves 2-12 are intact. Motor: Motor function is intact. Coordination: Coordination is intact. Gait: Gait is intact. Comments: Resting and action tremors involving bilateral hands. With distraction the tremors improved somewhat. Psychiatric: Attention and Perception: Attention normal. Mood and Affect: Affect normal. Mood is anxious. Speech: Speech normal. Behavior: Behavior normal. Behavior is cooperative. Thought Content: Thought content normal. Judgment: Judgment normal. Assessment/Plan 1. Situational mixed anxiety and depressive disorder (F43.23) Improvement noted with Effexor 150 mg, though not complete resolution of symptoms. - Continue Effexor 150 mg daily. - Discussed potential side effects of abrupt discontinuation and advised against stopping medication without guidance. - Follow-up in 4 weeks to re-evaluate. 2. Tremor (R25.1) Generalized tremor noted, onset after initiation of Effexor. Tremor has worsened since last visit where dosage was increased. Likely a side effect of Effexor. - Initiated propranolol XR 60 mg daily - Discussed potential side effects of propranolol, including bradycardia, hypotension, fatigue, and lightheadedness. - Advised patient to monitor tremor and report if it becomes more bothersome or if propranolol is ineffective. - Patient to contact via MyChart or phone if tremor worsens or if considering discontinuation of Effexor. Prescription instructions reviewed with patient as applicable. Potential red flag symptoms discussed with the patient. Reviewed appropriate action plan to take if red flag symptoms occur. Patient agreeable to treatment plan. Moon Feliz APRN.EXCELLENCE SPECIALIST documented in this encounter [facility] 08-05-2024 Note Patient Outreach (IN TMWS) RENATE INFANTE I ([id number]) 1950 F Date Time Provider Department 08/05/24 FREDERIC LUONG During your visit today, we recorded the following information about you: Allergies As of Date: 08/05/2024 Noted Allergy Reaction MELOXICAM 10/21/2012 14 - Other: See Comments Comments: muscle tremors/spasms SEPTRA (SULFAMETHOXAZOLE-TRIMETHO*06/04 4 - Hives Date Reviewed: 07/30/2024 Reviewed by: Moon Feliz APRN.EXCELLENCE SPECIALIST - Fully Assessed Visit Diagnosis:Encounter for screening mammogram for breast cancer [Z12.31] Order(s):[facility] [[id number]] Order #: [id number] FUTURE Prescriptions as of 09/05/2024 - propranolol ER (INDERAL LA) 60 mg 24 hr capsule Take 1 capsule by mouth once daily. - venlafaxine ER (EFFEXOR XR) 150 mg 24 hr capsule Take 1 capsule by mouth once daily. - amitriptyline (ELAVIL) 10 mg tablet Take 1 tablet by mouth at bedtime as needed for sedation. - ergocalciferol 50,000 unit capsule (VITAMIN D2, DRISDOL) Take 1 capsule by mouth two times a week. - atorvastatin (LIPITOR) 20 mg tablet Take 1 tablet by mouth once daily. - alendronate (FOSAMAX) 70 mg tablet Take 1 tablet by mouth one time a week. Take with a full glass of water, on an empty stomach; do NOT lie down for 30minutes. - diclofenac, EC, (VOLTAREN) 75 mg EC tablet Take 1 tablet by mouth two times a day. For pain/inflammation. Take with food. Meds Comments as of 06/15/2010: Problem List As Of Date 08/05/2024 Noted Resolved Irritable bowel syndrome [K58.9] 11/21/2005 03/24/2024 HEADACHE [R51] 11/21/2005 01/02/2006 Mgrn Wo Aura Wo Intrc Mgr [G43.009] 01/02/2006 10/21/2013 Carpal tunnel syndrome [G56.00] 03/05/2006 09/05/2011 Pain in joint, lower leg [M25.569] 03/05/2006 03/24/2024 Lumbago [M54.50] 07/16/2006 03/24/2024 Diarrhea [R19.7] 05/10/2007 11/26/2018 Acute Gastritis without Mention of Hemorrhage [*05/10/2007 09/05/2011 Benign neoplasm of colon [D12.6] 11/22/2007 03/24/2024 Internal Hemorrhoids without Mention of Complic*11/22/2007 09/05/2011 Pain in Soft Tissues of Limb [M79.609] 07/09/2008 09/05/2011 Calcaneal spur [M77.30] 07/09/2008 09/05/2011 Hyperlipidemia, mixed [E78.2] 09/29/2011 Vitamin D deficiency [E55.9] 09/18/2012 Stress incontinence, female [N39.3] 10/21/2013 Clostridium difficile diarrhea [A04.72] 08/14/2014 11/26/2018 Insomnia [G47.00] 05/04/2015 03/24/2024 Situational mixed anxiety and depressive disord*05/04/2015 Nonspecific abnormal toxicology (inconsistent) *05/05/2015 03/24/2024 Age-related osteoporosis without current pathol*08/11/2022 History of colonic polyps [Z86.0100] 12/28/2022 03/24/2024 Memory changes [R41.3] 06/04/2023 Encounter Status:Closed by JASMINE HUGHES on 09/05/24 [facility] 07-30-2024 Note HNO ID: [id number] Author: MOON FELIZ APRN.EXCELLENCE SPECIALIST Service: ? Author Type: Nurse Practitioner Type: Progress Notes Filed: 07/30/2024 18:05 Note Text: CC: Patient presents with: Follow Up: 1 month HPI Recording using [employer] software for draft documentation of the visit was discussed with the patient/authorized customer solutions representative; all questions welcomed and answered. Patient/authorized customer solutions representative agreed to proceed Renate is a 73-year-old female presenting for follow-up on antidepressant medication. Renate was previously on duloxetine 40 mg, which was not effective in managing her anxiety and depression. Last month, her medication was switched to venlafaxine (Effexor) 75 mg. She reports that the new medication has helped to reduce her stress levels slightly, stating it takes the edge off, but notes that the effect does not last throughout the day. She denies experiencing any side effects such as dizziness, lightheadedness, or nausea from the venlafaxine. She continues to struggle with anxiety and depression, though she notes that these symptoms have not worsened. Her sleep quality remains poor, averaging no more than 4 hours per night, which she considers a good night. She attributes her insomnia to an inability to fall asleep due to persistent thoughts about tasks she needs to complete. Her has observed that she is very restless when she is sleeping. She has a history of snoring but denies any episodes of apnea. She notes that when she does get a sufficient amount of sleep, she feels well-rested. She denies waking up with headaches and excessive daytime sleepiness. Review of Systems See HPI PAST MEDICAL HISTORY Diagnosis Date Acute gastritis without mention of hemorrhage Age-related osteoporosis without current pathological fracture 08/11/2022 Allergic rhinitis, cause unspecified Anemia, unspecified 11/21/2005 Anxiety and depression 05/04/2015 Arthritis Benign neoplasm of colon Carpal tunnel syndrome 03/05/2006 Cervicalgia 1998 Clostridium difficile diarrhea 08/14/2014 Diarrhea Diarrhea Headache(784.0) 11/21/2005 Insomnia 05/04/2015 Internal hemorrhoids without mention of complication Irritable bowel syndrome 11/21/2005 Lumbago 07/16/2006 narcotic contract signed,scanned in and in paper chart 07/28/09. Migraine without aura, without mention of intractable migraine without mention of status migrainosus Nonspecific abnormal toxicology (inconsistent) 05/05/2015 Pain in joint, lower leg 03/05/2006 PAST SURGICAL HISTORY Procedure Laterality Date APPENDECTOMY ARTHROSCOPY KNEE DIAGNOSTIC W/WO SYNOVIAL BX SPX 04/16/1987 Arthroscopy, knee, Dr. Griggs COLONOSCOPY 12/28/2022 repeat in 10 years COLONOSCOPY FLX DX W/COLLJ SPEC WHEN PFRMD 05/17/2003 Colonoscopy, Dr. Disla COLONOSCOPY FLX DX W/COLLJ SPEC WHEN PFRMD 05/23/2013 Colonoscopy COLSC FLX W/RMVL OF TUMOR POLYP LESION SNARE TQ 11/22/2007 EGD TRANSORAL BIOPSY SINGLE/MULTIPLE 05/10/2007 ESOPHAGOGASTRODUODENOSCOPY TRANSORAL DIAGNOSTIC 09/14/1994 EGD INCISE FINGER TENDON SHEATH Right 08/31/2023 Right middle trigger finger release LAMINECTOMY W/O FFD 1/2 VERT SEG LUMBAR [...] W/REMOVAL TUBES/OV 04/16/2012 ALLERGIES Meloxicam and Septra [Sulfamethoxazole-Trimethoprim] MEDICATIONS venlafaxine ER (EFFEXOR XR) 150 mg 24 hr capsule Take 1 capsule by mouth once daily. amitriptyline (ELAVIL) 10 mg tablet Take 1 tablet by mouth at bedtime as needed for sedation. ergocalciferol 50,000 unit capsule (VITAMIN D2, DRISDOL) Take 1 capsule by mouth two times a week. atorvastatin (LIPITOR) 20 mg tablet Take 1 tablet by mouth once daily. alendronate (FOSAMAX) 70 mg tablet Take 1 tablet by mouth one time a week. Take with a full glass of water, on an empty stomach; do NOT lie down for 30minutes. diclofenac, EC, (VOLTAREN) 75 mg EC tablet Take 1 tablet by mouth two times a day. For pain/inflammation. Take with food. FAMILY HISTORY Problem Relation Age of Onset Hypertension Mother Diabetes Mother Heart Mother Congestive Heart Failure Cataract Mother COPD Father of COPD Coronary Artery Disease Father Heart Father Cataract Sister Cataract Brother Cataract Brother Asthma Brother 2 brothers (more content not included)... [facility] 07-30-2024 History of Presen t illness Narrative CC: Patient presents with: Follow Up: 1 month HPI Recording using [employer] software for draft documentation of the visit was discussed with the patient/authorized customer solutions representative; all questions welcomed and answered. Patient/authorized customer solutions representative agreed to proceed Renate is a 73-year-old female presenting for follow-up on antidepressant medication. Renate was previously on duloxetine 40 mg, which was not effective in managing her anxiety and depression. Last month, her medication was switched to venlafaxine (Effexor) 75 mg. She reports that the new medication has helped to reduce her stress levels slightly, stating it takes the edge off, but notes that the effect does not last throughout the day. She denies experiencing any side effects such as dizziness, lightheadedness, or nausea from the venlafaxine. She continues to struggle with anxiety and depression, though she notes that these symptoms have not worsened. Her sleep quality remains poor, averaging no more than 4 hours per night, which she considers a good night. She attributes her insomnia to an inability to fall asleep due to persistent thoughts about tasks she needs to complete. Her has observed that she is very restless when she is sleeping. She has a history of snoring but denies any episodes of apnea. She notes that when she does get a sufficient amount of sleep, she feels well-rested. She denies waking up with headaches and excessive daytime sleepiness. Review of Systems See HPI PAST MEDICAL HISTORY Diagnosis Date Acute gastritis without mention of hemorrhage Age-related osteoporosis without current pathological fracture 08/11/2022 Allergic rhinitis, cause unspecified Anemia, unspecified 11/21/2005 Anxiety and depression 05/04/2015 Arthritis Benign neoplasm of colon Carpal tunnel syndrome 03/05/2006 Cervicalgia 1998 Clostridium difficile diarrhea 08/14/2014 Diarrhea Diarrhea Headache(784.0) 11/21/2005 Insomnia 05/04/2015 Internal hemorrhoids without mention of complication Irritable bowel syndrome 11/21/2005 Lumbago 07/16/2006 narcotic contract signed,scanned in and in paper chart 07/28/09. Migraine without aura, without mention of intractable migraine without mention of status migrainosus Nonspecific abnormal toxicology (inconsistent) 05/05/2015 Pain in joint, lower leg 03/05/2006 PAST SURGICAL HISTORY Procedure Laterality Date APPENDECTOMY ARTHROSCOPY KNEE DIAGNOSTIC W/WO SYNOVIAL BX SPX 04/16/1987 Arthroscopy, knee, Dr. Griggs COLONOSCOPY 12/28/2022 repeat in 10 years COLONOSCOPY FLX DX W/COLLJ SPEC WHEN PFRMD 05/17/2003 Colonoscopy, Dr. Disla COLONOSCOPY FLX DX W/COLLJ SPEC WHEN PFRMD 05/23/2013 Colonoscopy COLSC FLX W/RMVL OF TUMOR POLYP LESION SNARE TQ 11/22/2007 EGD TRANSORAL BIOPSY SINGLE/MULTIPLE 05/10/2007 ESOPHAGOGASTRODUODENOSCOPY TRANSORAL DIAGNOSTIC 09/14/1994 EGD INCISE FINGER TENDON SHEATH Right 08/31/2023 Right middle trigger finger release LAMINECTOMY W/O FFD 1/2 VERT SEG LUMBAR [...] 1960s Tonsillectomy VAGINAL HYSTERECTOMY W/REMOVAL TUBES/OV 04/16/2012 ALLERGIES Meloxicam and Septra [Sulfamethoxazole-Trimethoprim] MEDICATIONS venlafaxine ER (EFFEXOR XR) 150 mg 24 hr capsule Take 1 capsule by mouth once daily. amitriptyline (ELAVIL) 10 mg tablet Take 1 tablet by mouth at bedtime as needed for sedation. ergocalciferol 50,000 unit capsule (VITAMIN D2, DRISDOL) Take 1 capsule by mouth two times a week. atorvastatin (LIPITOR) 20 mg tablet Take 1 tablet by mouth once daily. alendronate (FOSAMAX) 70 mg tablet Take 1 tablet by mouth one time a week. Take with a full glass of water, on an empty stomach; do NOT lie down for 30minutes. diclofenac, EC, (VOLTAREN) 75 mg EC tablet Take 1 tablet by mouth two times a day. For pain/inflammation. Take with food. FAMILY HISTORY Problem Relation Age of Onset Hypertension Mother Diabetes Mother Heart Mother Congestive Heart Failure Cataract Mother COPD Father of COPD Coronary Artery Disease Father Heart Father Cataract Sister Cataract Brother Cataract Brother Asthma Brother 2 brothers Cancer Brother metastatic, etiol? Social History Tobacco Use Smoking status: Never Smokeless tobacco: Never Vaping Use Vaping status: Never Used Substance Use Topics Alcohol use: Not Currently Drug use: No BP 132/80 Pulse 76 Resp 14 Wt 56.5 kg (124 lb 9 oz) LMP 07/03/2005 SpO2 98% BMI 24.62 kg/m Physical Exam Vitals reviewed. Constitutional: Appearance: Normal appearance. Neurological: Mental Status: She is alert. Psychiatric: Attention and Perception: Attention normal. Mood and Affect: Affect normal. Mood is anxious. Speech: Speech normal. Behavior: Behavior normal. Behavior is cooperative. Thought Content: Thought content is not paranoid. Thought content does not include homicidal or suicidal ideation. Thought content does not include suicidal plan. Assessment/Plan 1. Situational mixed anxiety and depressive disorder (F43.23) Partial improvement with venlafaxine 75 mg, but effects are not sustained throughout the day. No reported side effects such as dizziness, lightheadedness, or nausea. Previous treatment with duloxetine 40 mg was ineffective. - Increased venlafaxine to 150 mg daily. Advised patient to either finish current 75 mg tablets or take two to achieve 150 mg until new prescription is filled. - Sent prescription for 150 mg venlafaxine as a 90-day supply to [facility] - Scheduled follow-up in four weeks to assess efficacy and tolerability. 2. Insomnia, unspecified type (G47.00) Chronic insomnia with difficulty initiating sleep, averaging four hours per night. No reports of sleep apnea symptoms such as snoring or apneic episodes. Restless sleep noted by spouse. - Initiated amitriptyline 10 mg orally at bedtime as needed. - Instructed patient to monitor for effectiveness and report any issues. - Will consider dosage adjustment if current regimen is ineffective. Prescription instructions reviewed with patient as applicable. Potential red flag symptoms discussed with the patient. Reviewed appropriate action plan to take if red flag symptoms occur. Patient agreeable to treatment plan. I spent a total of 30 minutes on the date of the service which included preparing to see the patient, [id number] patient care, completing clinical documentation, counseling and educating the patient/family/caregiver, and ordering medications, tests, or procedures. Moon Feliz APRN.CNP Medical Decision Making: Problems: Moderate: 1+ chronic illnesses with change Risk: Moderate: Drug management Medical Decision Making Level: 4 - Moderate documented in this encounter [facility] 07-30-2024 Instructions Moon Feliz APRN.SHOAIB - 07/30/2024 5:59 PM EDT We discussed your depression and anxiety: - You are currently taking venlafaxine (Effexor) 75 mg daily. Since you have noticed some improvement but it is not lasting, we will increase the dose to 150 mg daily. - You may either finish your current 75 mg capsules or take two 75 mg capsules daily to reach the 150 mg dose until your new prescription is ready. A 90-day supply of the 150 mg dose has been sent to your pharmacy. - Please monitor for any side effects such as dizziness, nausea, or lightheadedness, and let me know if you experience any issues. We discussed your sleep difficulties: - You are having trouble falling asleep and are restless during the night. To help with this, I have prescribed amitriptyline 10 mg, to be taken as needed at bedtime. - You do not need to take this medication every night, but if it does not help or if you experience any issues, please let me know. If needed, we can adjust the dose. Follow-Up: - We will follow up in four weeks to assess how you are doing with the increased venlafaxine dose and the amitriptyline for sleep. - If you experience any new or worsening symptoms before then, please contact me. documented in this encounter [facility] 06-25-2024 Instructions Moon Feliz APRN.CNP - 06/25/2024 5:21 PM EDT - Discontinue Duloxetine (Cymbalta). - Start taking Venlafaxine (Effexor) 75 mg daily; prescription sent to [facility] pharmacy. 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 - Monitor for any side effects such as nausea with the new medication. - Next follow-up appointment in 4 weeks. documented in this encounter [facility] 06-25-2024 Note HNO ID: [id number] Author: MOON FELIZ APRN.CNP Service: ? Author Type: Nurse Practitioner Type: Progress Notes Filed: 06/25/2024 17:21 Note Text: CC: Patient presents with: Follow Up: 1 month HPI Renate Infante is a 73-year-old female presenting for follow-up on duloxetine management for anxiety and depression. The patient consented to the use of [employer] software for draft documentation of the visit consistent with [facility]?s Notice of Privacy Practices. Anxiety and Depression: - No improvement in anxiety or depression symptoms after increasing duloxetine to 40 mg. - Denies any side effects from duloxetine. - Anxiety and depression symptoms remain pretty bad. - Renate is experiencing significant stress related to caring for a autistic grandson with severe behavioral issues - Reports trouble sleeping; unable to take sleep aids due to caregiving responsibilities. - Denies thoughts of self-harm or harm to others. - Denies time for counseling. Review of Systems See HPI PAST MEDICAL HISTORY Diagnosis Date Acute gastritis without mention of hemorrhage Age-related osteoporosis without current pathological fracture 08/11/2022 Allergic rhinitis, cause unspecified Anemia, unspecified 11/21/2005 Anxiety and depression 05/04/2015 Arthritis Benign neoplasm of colon Carpal tunnel syndrome 03/05/2006 Cervicalgia 1998 Clostridium difficile diarrhea 08/14/2014 Diarrhea Diarrhea Headache(784.0) 11/21/2005 Insomnia 05/04/2015 Internal hemorrhoids without mention of complication Irritable bowel syndrome 11/21/2005 Lumbago 07/16/2006 narcotic contract signed,scanned in and in paper chart 07/28/09. Migraine without aura, without mention of intractable migraine without mention of status migrainosus Nonspecific abnormal toxicology (inconsistent) 05/05/2015 Pain in joint, lower leg 03/05/2006 PAST SURGICAL HISTORY Procedure Laterality Date APPENDECTOMY ARTHROSCOPY KNEE DIAGNOSTIC W/WO SYNOVIAL BX SPX 04/16/1987 Arthroscopy, knee, Dr. Griggs COLONOSCOPY 12/28/2022 repeat in 10 years COLONOSCOPY FLX DX W/COLLJ SPEC WHEN PFRMD 05/17/2003 Colonoscopy, Dr. Disla COLONOSCOPY FLX DX W/COLLJ SPEC WHEN PFRMD 05/23/2013 Colonoscopy COLSC FLX W/RMVL OF TUMOR POLYP LESION SNARE TQ 11/22/2007 EGD TRANSORAL BIOPSY SINGLE/MULTIPLE 05/10/2007 ESOPHAGOGASTRODUODENOSCOPY TRANSORAL DIAGNOSTIC 09/14/1994 EGD INCISE FINGER TENDON SHEATH Right 08/31/2023 Right middle trigger finger release LAMINECTOMY W/O FFD 1/2 VERT SEG LUMBAR [...] W/REMOVAL TUBES/OV 04/16/2012 ALLERGIES Meloxicam and Septra [Sulfamethoxazole-Trimethoprim] MEDICATIONS ergocalciferol 50,000 unit capsule (VITAMIN D2, DRISDOL) Take 1 capsule by mouth two times a week. atorvastatin (LIPITOR) 20 mg tablet Take 1 tablet by mouth once daily. alendronate (FOSAMAX) 70 mg tablet Take 1 tablet by mouth one time a week. Take with a full glass of water, on an empty stomach; do NOT lie down for 30minutes. diclofenac, EC, (VOLTAREN) 75 mg EC tablet Take 1 tablet by mouth two times a day. For pain/inflammation. Take with food. venlafaxine ER (EFFEXOR XR) 75 mg 24 hr capsule Take 1 capsule by mouth once daily. FAMILY HISTORY Problem Relation Age of Onset Hypertension Mother Diabetes Mother Heart Mother Congestive Heart Failure Cataract Mother COPD Father of COPD Coronary Artery Disease Father Heart Father Cataract Sister Cataract Brother Cataract Brother Asthma Brother 2 brothers Cancer Brother metastatic, etiol? Social History Tobacco Use Smoking status: Never Smokeless tobacco: Never Vaping Use Vaping status: Never Used Substance Use Topics Alcohol use: Not Currently Drug use: No BP 136/80 Pulse 80 Resp 12 Wt 54.9 kg (121 lb 0.5 oz) LMP 07/03/2005 SpO2 97% BMI 23.92 kg/m? Physical Exam Vitals reviewed. Constitutional: Appearance: Normal appearance. Neurological: Mental Status: She is alert. Psychiatric: Mood and Affect: Affect normal. Mood is depressed. Speech: Speech normal. Behavior: Behavior normal. Thought Content: Thought content normal. 1. Situational mixed anxiety and depressive disorder (F43.23) - No improvement with duloxetine 40 mg (more content not included)... [facility] 06-25-2024 History of Presen t illness Narrative CC: Patient presents with: Follow Up: 1 month HPI Renate Infante is a 73-year-old female presenting for follow-up on duloxetine management for anxiety and depression. The patient consented to the use of [employer] software for draft documentation of the visit consistent with [facility] s Notice of Privacy Practices. Anxiety and Depression: - No improvement in anxiety or depression symptoms after increasing duloxetine to 40 mg. - Denies any side effects from duloxetine. - Anxiety and depression symptoms remain pretty bad. - Renate is experiencing significant stress related to caring for a autistic grandson with severe behavioral issues - Reports trouble sleeping; unable to take sleep aids due to caregiving responsibilities. - Denies thoughts of self-harm or harm to others. - Denies time for counseling. Review of Systems See HPI PAST MEDICAL HISTORY Diagnosis Date Acute gastritis without mention of hemorrhage Age-related osteoporosis without current pathological fracture 08/11/2022 Allergic rhinitis, cause unspecified Anemia, unspecified 11/21/2005 Anxiety and depression 05/04/2015 Arthritis Benign neoplasm of colon Carpal tunnel syndrome 03/05/2006 Cervicalgia 1998 Clostridium difficile diarrhea 08/14/2014 Diarrhea Diarrhea Headache(784.0) 11/21/2005 Insomnia 05/04/2015 Internal hemorrhoids without mention of complication Irritable bowel syndrome 11/21/2005 Lumbago 07/16/2006 narcotic contract signed,scanned in and in paper chart 07/28/09. Migraine without aura, without mention of intractable migraine without mention of status migrainosus Nonspecific abnormal toxicology (inconsistent) 05/05/2015 Pain in joint, lower leg 03/05/2006 PAST SURGICAL HISTORY Procedure Laterality Date APPENDECTOMY ARTHROSCOPY KNEE DIAGNOSTIC W/WO SYNOVIAL BX SPX 04/16/1987 Arthroscopy, knee, Dr. Griggs COLONOSCOPY 12/28/2022 repeat in 10 years COLONOSCOPY FLX DX W/COLLJ SPEC WHEN PFRMD 05/17/2003 Colonoscopy, Dr. Disla COLONOSCOPY FLX DX W/COLLJ SPEC WHEN PFRMD 05/23/2013 Colonoscopy COLSC FLX W/RMVL OF TUMOR POLYP LESION SNARE TQ 11/22/2007 EGD TRANSORAL BIOPSY SINGLE/MULTIPLE 05/10/2007 ESOPHAGOGASTRODUODENOSCOPY TRANSORAL DIAGNOSTIC 09/14/1994 EGD INCISE FINGER TENDON SHEATH Right 08/31/2023 Right middle trigger finger release LAMINECTOMY W/O FFD 1/2 VERT SEG LUMBAR [...] 1960s Tonsillectomy VAGINAL HYSTERECTOMY W/REMOVAL TUBES/OV 04/16/2012 ALLERGIES Meloxicam and Septra [Sulfamethoxazole-Trimethoprim] MEDICATIONS ergocalciferol 50,000 unit capsule (VITAMIN D2, DRISDOL) Take 1 capsule by mouth two times a week. atorvastatin (LIPITOR) 20 mg tablet Take 1 tablet by mouth once daily. alendronate (FOSAMAX) 70 mg tablet Take 1 tablet by mouth one time a week. Take with a full glass of water, on an empty stomach; do NOT lie down for 30minutes. diclofenac, EC, (VOLTAREN) 75 mg EC tablet Take 1 tablet by mouth two times a day. For pain/inflammation. Take with food. venlafaxine ER (EFFEXOR XR) 75 mg 24 hr capsule Take 1 capsule by mouth once daily. FAMILY HISTORY Problem Relation Age of Onset Hypertension Mother Diabetes Mother Heart Mother Congestive Heart Failure Cataract Mother COPD Father of COPD Coronary Artery Disease Father Heart Father Cataract Sister Cataract Brother Cataract Brother Asthma Brother 2 brothers Cancer Brother metastatic, etiol? Social History Tobacco Use Smoking status: Never Smokeless tobacco: Never Vaping Use Vaping status: Never Used Substance Use Topics Alcohol use: Not Currently Drug use: No BP 136/80 Pulse 80 Resp 12 Wt 54.9 kg (121 lb 0.5 oz) LMP 07/03/2005 SpO2 97% BMI 23.92 kg/m Physical Exam Vitals reviewed. Constitutional: Appearance: Normal appearance. Neurological: Mental Status: She is alert. Psychiatric: Mood and Affect: Affect normal. Mood is depressed. Speech: Speech normal. Behavior: Behavior normal. Thought Content: Thought content normal. 1. 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 - Discontinued duloxetine. - Initiated venlafaxine 75 mg daily; prescription sent to [facility] pharmacy. - Educated patient on potential side effects of venlafaxine, including nausea and anxiety. 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 - Discussed the importance of counseling in conjunction with medication; recommended exploring virtual counseling options. - Scheduled follow-up in 4 weeks to assess response to venlafaxine. Prescription instructions reviewed with patient as applicable. Potential red flag symptoms discussed with the patient. Reviewed appropriate action plan to take if red flag symptoms occur. Patient agreeable to treatment plan. I spent a total of 30 minutes on the date of the service which included preparing to see the patient, [id number] patient care, completing clinical documentation, counseling and educating the patient/family/caregiver, and ordering medications, tests, or procedures. Moon Feliz APRN.SHOAIB Medical Decision Making: Problems: Moderate: New problem with uncertain prognosis Risk: Low: Low risk from testing/treatment Moderate: Drug management Medical Decision Making Level: 4 - Moderate documented in this encounter [facility] 05-28-2024 Note HNO ID: [id number] Author: MOON FELIZ APRN.SHOAIB Service: ? Author Type: Nurse Practitioner Type: Progress Notes Filed: 05/28/2024 16:43 Note Text: CC: Patient presents with: Follow Up: 4 weeks HPI Renaet Infante is a 73 year old female who presents today for above. Patient was seen one month ago and started on Cymbalta 20 mg daily. Patient reports no improvement in depression and anxiety Side effects: None Denies suicidal thoughts or plan. Review of Systems See HPI PAST MEDICAL HISTORY Diagnosis Date Acute gastritis without mention of hemorrhage Age-related osteoporosis without current pathological fracture 08/11/2022 Allergic rhinitis, cause unspecified Anemia, unspecified 11/21/2005 Anxiety and depression 05/04/2015 Arthritis Benign neoplasm of colon Carpal tunnel syndrome 03/05/2006 Cervicalgia 1998 Clostridium difficile diarrhea 08/14/2014 Diarrhea Diarrhea Headache(784.0) 11/21/2005 Insomnia 05/04/2015 Internal hemorrhoids without mention of complication Irritable bowel syndrome 11/21/2005 Lumbago 07/16/2006 narcotic contract signed,scanned in and in paper chart 07/28/09. Migraine without aura, without mention of intractable migraine without mention of status migrainosus Nonspecific abnormal toxicology (inconsistent) 05/05/2015 Pain in joint, lower leg 03/05/2006 PAST SURGICAL HISTORY Procedure Laterality Date APPENDECTOMY ARTHROSCOPY KNEE DIAGNOSTIC W/WO SYNOVIAL BX SPX 04/16/1987 Arthroscopy, knee, Dr. Griggs COLONOSCOPY 12/28/2022 repeat in 10 years COLONOSCOPY FLX DX W/COLLJ SPEC WHEN PFRMD 05/17/2003 Colonoscopy, Dr. Disla COLONOSCOPY FLX DX W/COLLJ SPEC WHEN PFRMD 05/23/2013 Colonoscopy COLSC FLX W/RMVL OF TUMOR POLYP LESION SNARE TQ 11/22/2007 EGD TRANSORAL BIOPSY SINGLE/MULTIPLE 05/10/2007 ESOPHAGOGASTRODUODENOSCOPY TRANSORAL DIAGNOSTIC 09/14/1994 EGD INCISE FINGER TENDON SHEATH Right 08/31/2023 Right middle trigger finger release LAMINECTOMY W/O FFD 1/2 VERT SEG LUMBAR [...] W/REMOVAL TUBES/OV 04/16/2012 ALLERGIES Meloxicam and Septra [Sulfamethoxazole-Trimethoprim] MEDICATIONS ergocalciferol 50,000 unit capsule (VITAMIN D2, DRISDOL) Take 1 capsule by mouth one time a week. alendronate (FOSAMAX) 70 mg tablet Take 1 tablet by mouth one time a week. Take with a full glass of water, on an empty stomach; do NOT lie down for 30minutes. diclofenac, EC, (VOLTAREN) 75 mg EC tablet Take 1 tablet by mouth two times a day. For pain/inflammation. Take with food. DULoxetine (CYMBALTA) 20 mg capsule Take 1 capsule by mouth once daily. FAMILY HISTORY Problem Relation Age of Onset Hypertension Mother Diabetes Mother Heart Mother Congestive Heart Failure Cataract Mother COPD Father of COPD Coronary Artery Disease Father Heart Father Cataract Sister Cataract Brother Cataract Brother Asthma Brother 2 brothers Cancer Brother metastatic, etiol? Social History Tobacco Use Smoking status: Never Smokeless tobacco: Never Vaping Use Vaping status: Never Used Substance Use Topics Alcohol use: Not Currently Drug use: No BP 136/80 Pulse 64 Resp 14 Wt 56.3 kg (124 lb 1.9 oz) LMP 07/03/2005 SpO2 99% BMI 24.53 kg/m? Physical Exam Vitals reviewed. Constitutional: Appearance: Normal appearance. Neurological: Mental Status: She is alert. Psychiatric: Attention and Perception: Attention normal. Mood and Affect: Affect normal. Mood is anxious. Speech: Speech normal. Behavior: Behavior normal. Thought Content: Thought content normal. DATA REVIEWED: Most recent labs Latest Ref Rng 05/23/2024 Cholesterol, Total <200 mg/dL 220 (H) Triglyceride <150 mg/dL 83 HDL Cholesterol >39 mg/dL 55 Non HDL Cholesterol <130 mg/dL 165 (H) Fasting Time hrs 12 VLDL Cholesterol <30 mg/dL 17 TC:HDL Ratio <5.10 4.00 LDL Cholesterol <100 mg/dL 148 (H) LDL:HDL Ratio <2.54 2.69 (H) Vitamin D 25 Hydroxy 31.0 - 80.0 ng/mL 11.4 (L) Legend: (H) High (L) Low ASSESSMENT/PLAN: 1. Situational mixed anxiety and depressive disorder - ICD9: 309.28, ICD10: F43.23 (primary diagnosis) No improvement with Cymbalta 20 mg daily, increase to 40 mg - Reviewed benefits of sleep hygeine, diet and exercise - Follow-up in (more content not included)... [facility] 05-28-2024 History of Presen t illness Narrative CC: Patient presents with: Follow Up: 4 weeks HPI Renateflaco Infante is a 73 year old female who presents today for above. Patient was seen one month ago and started on Cymbalta 20 mg daily. Patient reports no improvement in depression and anxiety Side effects: None Denies suicidal thoughts or plan. Review of Systems See HPI PAST MEDICAL HISTORY Diagnosis Date Acute gastritis without mention of hemorrhage Age-related osteoporosis without current pathological fracture 08/11/2022 Allergic rhinitis, cause unspecified Anemia, unspecified 11/21/2005 Anxiety and depression 05/04/2015 Arthritis Benign neoplasm of colon Carpal tunnel syndrome 03/05/2006 Cervicalgia 1998 Clostridium difficile diarrhea 08/14/2014 Diarrhea Diarrhea Headache(784.0) 11/21/2005 Insomnia 05/04/2015 Internal hemorrhoids without mention of complication Irritable bowel syndrome 11/21/2005 Lumbago 07/16/2006 narcotic contract signed,scanned in and in paper chart 07/28/09. Migraine without aura, without mention of intractable migraine without mention of status migrainosus Nonspecific abnormal toxicology (inconsistent) 05/05/2015 Pain in joint, lower leg 03/05/2006 PAST SURGICAL HISTORY Procedure Laterality Date APPENDECTOMY ARTHROSCOPY KNEE DIAGNOSTIC W/WO SYNOVIAL BX SPX 04/16/1987 Arthroscopy, knee, Dr. Griggs COLONOSCOPY 12/28/2022 repeat in 10 years COLONOSCOPY FLX DX W/COLLJ SPEC WHEN PFRMD 05/17/2003 Colonoscopy, Dr. Disla COLONOSCOPY FLX DX W/COLLJ SPEC WHEN PFRMD 05/23/2013 Colonoscopy COLSC FLX W/RMVL OF TUMOR POLYP LESION SNARE TQ 11/22/2007 EGD TRANSORAL BIOPSY SINGLE/MULTIPLE 05/10/2007 ESOPHAGOGASTRODUODENOSCOPY TRANSORAL DIAGNOSTIC 09/14/1994 EGD INCISE FINGER TENDON SHEATH Right 08/31/2023 Right middle trigger finger release LAMINECTOMY W/O FFD 1/2 VERT SEG LUMBAR [...] 1960s Tonsillectomy VAGINAL HYSTERECTOMY W/REMOVAL TUBES/OV 04/16/2012 ALLERGIES Meloxicam and Septra [Sulfamethoxazole-Trimethoprim] MEDICATIONS ergocalciferol 50,000 unit capsule (VITAMIN D2, DRISDOL) Take 1 capsule by mouth one time a week. alendronate (FOSAMAX) 70 mg tablet Take 1 tablet by mouth one time a week. Take with a full glass of water, on an empty stomach; do NOT lie down for 30minutes. diclofenac, EC, (VOLTAREN) 75 mg EC tablet Take 1 tablet by mouth two times a day. For pain/inflammation. Take with food. DULoxetine (CYMBALTA) 20 mg capsule Take 1 capsule by mouth once daily. FAMILY HISTORY Problem Relation Age of Onset Hypertension Mother Diabetes Mother Heart Mother Congestive Heart Failure Cataract Mother COPD Father of COPD Coronary Artery Disease Father Heart Father Cataract Sister Cataract Brother Cataract Brother Asthma Brother 2 brothers Cancer Brother metastatic, etiol? Social History Tobacco Use Smoking status: Never Smokeless tobacco: Never Vaping Use Vaping status: Never Used Substance Use Topics Alcohol use: Not Currently Drug use: No BP 136/80 Pulse 64 Resp 14 Wt 56.3 kg (124 lb 1.9 oz) LMP 07/03/2005 SpO2 99% BMI 24.53 kg/m Physical Exam Vitals reviewed. Constitutional: Appearance: Normal appearance. Neurological: Mental Status: She is alert. Psychiatric: Attention and Perception: Attention normal. Mood and Affect: Affect normal. Mood is anxious. Speech: Speech normal. Behavior: Behavior normal. Thought Content: Thought content normal. DATA REVIEWED: Most recent labs Latest Ref Rng 05/23/2024 Cholesterol, Total <200 mg/dL 220 (H) Triglyceride <150 mg/dL 83 HDL Cholesterol >39 mg/dL 55 Non HDL Cholesterol <130 mg/dL 165 (H) Fasting Time hrs 12 VLDL Cholesterol <30 mg/dL 17 TC:HDL Ratio <5.10 4.00 LDL Cholesterol <100 mg/dL 148 (H) LDL:HDL Ratio <2.54 2.69 (H) Vitamin D 25 Hydroxy 31.0 - 80.0 ng/mL 11.4 (L) Legend: (H) High (L) Low ASSESSMENT/PLAN: 1. Situational mixed anxiety and depressive disorder - ICD9: 309.28, ICD10: F43.23 (primary diagnosis) No improvement with Cymbalta 20 mg daily, increase to 40 mg - Reviewed benefits of sleep hygeine, diet and exercise - Follow-up in 4 weeks or sooner as needed - Instructed patient to contact office or [id number] after-hours promptly should condition worsen or any new symptoms appear. 2. Hyperlipidemia, unspecified hyperlipidemia type - ICD9: 272.4, ICD10: E78.5 The 10-year ASCVD risk score (Venancio DK, et al., 2019) is: 12.1% Values used to calculate the score: Age: 73 years Sex: Female Is Non- : No Diabetic: No Tobacco smoker: No Systolic Blood Pressure: 136 mmHg Is BP treated: No HDL Cholesterol: 55 mg/dL Total Cholesterol: 220 mg/dL - New diagnosis - Start Lipitor 20 mg daily - Counseled on healthy diet and regular exercise - LIPID PANEL BASIC in 3 months 3. Vitamin D deficiency - ICD9: 268.9, ICD10: E55.9 Increase Vitamin D to twice a week, recheck in 3 months Prescription instructions reviewed with patient as applicable. Potential red flag symptoms discussed with the patient. Reviewed appropriate action plan to take if red flag symptoms occur. Patient agreeable to treatment plan. Moon Feliz APRN.CNP Medical Decision Making: Problems: Moderate: New problem with uncertain prognosis Risk: Low: Low risk from testing/treatment Moderate: Drug management Medical Decision Making Level: 4 - Moderate documented in this encounter [facility] 05-16-2024 Note HNO ID: [id number] Author: FREDERIC LUONG MD Service: ? Author Type: Physician Type: Progress Notes Filed: 05/16/2024 14:07 Note Text: This note was created using NoteWriter. Subjective Renate Infante is a 73 year old female. She was treated for urinary tract infection in January with gross hematuria, abnormal UA and culture + for E. Coli. She reported symptoms did not resolve completely. [facility]. UA was normal, but urine culture was sent showing a lower CC of E. Coli. She was treated again but was not better. Review of Systems Constitutional: Negative for chills, fatigue and fever. Gastrointestinal: Negative for abdominal pain, nausea and vomiting. Genitourinary: Positive for decreased urine volume, dysuria, pelvic pain and urgency. Negative for flank pain and vaginal discharge. ACTIVE PROBLEM LIST Hyperlipidemia, Mixed Vitamin D Deficiency Stress Incontinence, Female Age-Related Osteoporosis Without Current Pathological Fracture Memory Changes Social History Tobacco Use Smoking status: Never Smokeless tobacco: Never Vaping Use Vaping status: Never Used Substance Use Topics Alcohol use: Not Currently Drug use: No Current Outpatient Medications Medication Sig alendronate (FOSAMAX) 70 mg tablet Take 1 tablet by mouth one time a week. Take with a full glass of water, on an empty stomach; do NOT lie down for 30minutes. diclofenac, EC, (VOLTAREN) 75 mg EC tablet Take 1 tablet by mouth two times a day. For pain/inflammation. Take with food. DULoxetine (CYMBALTA) 20 mg capsule Take 1 capsule by mouth once daily. No current facility-administered medications for this visit. Objective BP 150/76 Pulse 71 Temp 37.1 ?C (98.7 ?F) (Temporal) Wt 57.2 kg (126 lb 1.7 oz) LMP 07/03/2005 SpO2 95% BMI 24.92 kg/m? Physical Exam Constitutional: General: She is not in acute distress. Appearance: She is not ill-appearing. Cardiovascular: Heart sounds: Normal heart sounds. Pulmonary: Breath sounds: Normal breath sounds. Abdominal: Palpations: Abdomen is soft. There is no mass. Tenderness: There is no abdominal tenderness. There is no right CVA tenderness or left CVA tenderness. Neurological: Mental Status: She is alert. Latest Ref Rng 05/16/2024 GLUCOSE UA (POCT) Negative mg/dL Negative BILIRUBIN UA (POCT) Negative Negative KETONE UA (POCT) Negative mg/dL Negative SPECIFIC GRAVITY UA (POCT) 1.005 - 1.030 1.020 HEMOGLOBIN/BLOOD UA (POCT) Negative Negative PH UA (POCT) 4.5 - 8.0 7.0 PROTEIN UA (POCT) Negative mg/dL Negative UROBILINOGEN UA (POCT) Normal E.U./dL 0.2 NITRITE UA (POCT) Negative Negative LEUKOCYTES UA (POCT) Negative Negative COLOR UA (POCT) Yellow CLARITY UA (POCT) Clear Assessment and Plan 1. Urinary hesitancy - ICD9: 788.64, ICD10: R39.11 (primary diagnosis) - UA DIP, URINE (POC) - CONSULT TO FEMALE UROLOGY/URO GYNECOLOGY 2. Dysuria - ICD9: 788.1, ICD10: R30.0 recurrent - UA DIP, URINE (POC) - CONSULT TO FEMALE UROLOGY/URO GYNECOLOGY 3. Pelvic pain - ICD9: [id number], ICD10: R10.2 - CONSULT TO FEMALE UROLOGY/URO GYNECOLOGY Frederic Luong MD [facility] 05-16-2024 History of Presen t illness Narrative This note was created using Currenseeriter. Subjective Renate Infante is a 73 year old female. She was treated for urinary tract infection in January with gross hematuria, abnormal UA and culture + for E. Coli. She reported symptoms did not resolve completely. [facility] went [facility] month. UA was normal, but urine culture was sent showing a lower CC of E. Coli. She was treated again but was not better. Review of Systems Constitutional: Negative for chills, fatigue and fever. Gastrointestinal: Negative for abdominal pain, nausea and vomiting. Genitourinary: Positive for decreased urine volume, dysuria, pelvic pain and urgency. Negative for flank pain and vaginal discharge. ACTIVE PROBLEM LIST Hyperlipidemia, Mixed Vitamin D Deficiency Stress Incontinence, Female Age-Related Osteoporosis Without Current Pathological Fracture Memory Changes Social History Tobacco Use Smoking status: Never Smokeless tobacco: Never Vaping Use Vaping status: Never Used Substance Use Topics Alcohol use: Not Currently Drug use: No Current Outpatient Medications Medication Sig alendronate (FOSAMAX) 70 mg tablet Take 1 tablet by mouth one time a week. Take with a full glass of water, on an empty stomach; do NOT lie down for 30minutes. diclofenac, EC, (VOLTAREN) 75 mg EC tablet Take 1 tablet by mouth two times a day. For pain/inflammation. Take with food. DULoxetine (CYMBALTA) 20 mg capsule Take 1 capsule by mouth once daily. No current facility-administered medications for this visit. Objective BP 150/76 Pulse 71 Temp 37.1 C (98.7 F) (Temporal) Wt 57.2 kg (126 lb 1.7 oz) LMP 07/03/2005 SpO2 95% BMI 24.92 kg/m Physical Exam Constitutional: General: She is not in acute distress. Appearance: She is not ill-appearing. Cardiovascular: Heart sounds: Normal heart sounds. Pulmonary: Breath sounds: Normal breath sounds. Abdominal: Palpations: Abdomen is soft. There is no mass. Tenderness: There is no abdominal tenderness. There is no right CVA tenderness or left CVA tenderness. Neurological: Mental Status: She is alert. Latest Ref Rng 05/16/2024 GLUCOSE UA (POCT) Negative mg/dL Negative BILIRUBIN UA (POCT) Negative Negative KETONE UA (POCT) Negative mg/dL Negative SPECIFIC GRAVITY UA (POCT) 1.005 - 1.030 1.020 HEMOGLOBIN/BLOOD UA (POCT) Negative Negative PH UA (POCT) 4.5 - 8.0 7.0 PROTEIN UA (POCT) Negative mg/dL Negative UROBILINOGEN UA (POCT) Normal E.U./dL 0.2 NITRITE UA (POCT) Negative Negative LEUKOCYTES UA (POCT) Negative Negative COLOR UA (POCT) Yellow CLARITY UA (POCT) Clear Assessment and Plan 1. Urinary hesitancy - ICD9: 788.64, ICD10: R39.11 (primary diagnosis) - UA DIP, URINE (POC) - CONSULT TO FEMALE UROLOGY/URO GYNECOLOGY 2. Dysuria - ICD9: 788.1, ICD10: R30.0 recurrent - UA DIP, URINE (POC) - CONSULT TO FEMALE UROLOGY/URO GYNECOLOGY 3. Pelvic pain - ICD9: [id number], ICD10: R10.2 - CONSULT TO FEMALE UROLOGY/URO GYNECOLOGY Frederic Luong MD documented in this encounter [facility] 05-16-2024 Telephone encounter Note Patient was notified and appointment was made Zoila Carranza MA [facility] 05-16-2024 Miscellaneous Notes Patient was notified and appointment was made Zoila Carranza MA Needs appointment Moon Feliz APRN.CNP Patient calling in to let Moon know she is still having symptoms of a UTI. Please review and advise. Ele Montoya May 16, 2024 10:22 AM documented in this encounter [facility] 05-16-2024 Telephone encounter Note Needs appointment Moon Feliz APRN.SHOAIB [facility] 05-16-2024 Telephone encounter Note Patient calling in to let Moon know she is still having symptoms of a UTI. Please review and advise. Ele Montoya May 16, 2024 10:22 AM [facility] 04-30-2024 Instructions Moon Feliz APRN.CNP - 04/30/2024 4:18 PM EST Anxiety treatment with Cymbalta: This medicine will take 4-6 weeks to take full effect. If there is no improvement after 2-3 weeks, call me so that we can gradually increase the dose. Side effects usually subside within 2 weeks, if they are still bothersome after this time please call me. Do not abrubtly stop this medicine. Avoid ewzi-yri-vayultu [facility] [place] Wart, Ephedra, Meridia, and others while on this medication. If you have any thoughts of suicide please call me or go to the Emergency Dept immediately. Contact the Critical access hospital Suicide and Crisis Lifeline if you are experiencing mental health-related distress or are worried about a loved one who may need crisis support (visit the Critical access hospital Suicide and Crisis Lifeline for more information at In[employer].org): Call or text 988 Chat at [employer] Connect with a trained crisis counselor. 988 is confidential, free, and available . Therapy/Counseling [facility] [address] [place] [address] [address] [address] [facility] [address] [place] [address] [facility] [address] [place] [address] [employer], [facility]. [address] [address] [employer] [address] [place] [address] [facility] [address] [place] [address] Screening schedule The following prevention plan is recommended: Shingrix Vaccine(1 of 2) Never done Pneumococcal Vaccine: 50+(1 of 1 - PCV) Never done Mammogram Screening due on 08/02/2023 WHAT YOU CAN DO TO PREVENT FALLS Many falls can be prevented. By making some changes, you can lower your chances of falling. Four things YOU can do to prevent falls for you* and your caregiver 1. Begin a regular exercise program Exercise is one of the most important ways to lower your chances of falling. It makes you stronger and helps you feel better. Exercises that improve balance and coordination (like [place]) are the most helpful. Lack of exercise leads to weakness and increases your chances of falling. Ask your doctor or health care provider about the best type of exercise program for you. 2. Have your health care provider review your medicines Have your doctor or pharmacist review all the medicines you take, even qsjm-gro-dfsgvft medicines. As you get older, the way medicines work in your body can change. Some medicines, or combinations of medicines, can make you sleepy or dizzy and can cause you to fall. 3. Have your vision checked Have your eyes checked by an eye doctor at least once a year. You may be wearing the wrong glasses or have a condition like glaucoma or cataracts that limits your vision. Poor vision can increase your chances of falling. 4. Make your home safer About half of all falls happen at home. To make your home safer: Remove things you can trip over (like papers, books, clothes, and shoes) from stairs and places where you walk. Remove small throw rugs or use double-sided tape to keep the rugs from slipping. Keep items you use often in cabinets you can reach easily without using a step stool. Have grab bars put in next to your toilet and in the tub or shower. Use non-slip mats in the bathtub and on shower floors. Improve the lighting in your home. As you get older, you need brighter lights to see well. Hang light-weight curtains or shades to reduce glare. Have handrails and lights put in on all staircases. Wear shoes both inside and outside the house. Avoid going barefoot or wearing slippers. For more information, contact: Centers for Disease Control and Prevention www.cdc.gov/injury * This information may not apply if you have certain medical conditions. documented in this encounter [facility] 04-30-2024 Note HNO ID: [id number] Author: MOON FELIZ APRN.CNP Service: ? Author Type: Nurse Practitioner Type: Progress Notes Filed: 04/30/2024 16:58 Note Text: Renate Infante is a 73 year old female here for a Medicare wellness visit. Medicare Health Risk Assessment General Health Fair Exercise: Minutes/Day Patient declined Exercise: Days/Week Patient declined Alcohol: Daily Use Never Alcohol: Drinks/Day Patient does not drink Alcohol: 6 or more drinks Never Feel off balance No Concerns: Teeth/Dentures No Concerns: Sexual function No Troubled by feelings Anxious; Stressed Frequency: Eating healthy diet Several days ADLs requiring help None of the above Safety precautions in home/vehicle Yes Smoke, vape, chews tobacco No Difficulty hearing No Difficulty seeing Yes Current Providers Specialists: I have reviewed specialist-related care of the patient in the medical record. Current care team: Patient Care Team: Frederic Luong MD as PCP - General oMon Feliz APRN.SHOAIB as Test Engineering Manager (Internal Medicine) [facility] Medical/Family history review Reviewed and updated problem list, medical/surgical/family/social history, medications, and allergies. Opioid use review Opioid Medications (last 90 days) 03/24/2024 00:00 03/27/2024 23:59 Opioid Medications hydrocodone/acetaminophen 1 tablet q 8 H PRN ORAL -Rx End Details Outpatient prescription Anxiety/Depression screening PHQ-9 Score: 9 (Mild Depression) LENKA-7 Score: 13 (Moderate Anxiety) Recommendation: medication management Cognitive screening Mini Cog Score: 4 Cognitive screening reviewed and No further action needed (score 3-5). Functional Observation Was the patient's Timed Up AND Go test unsteady or >= 12 seconds? No Advance Care Planning Patient was not able to provide a surrogate decision maker or written advance directives Measurements BP 118/72 Pulse 74 Resp 14 Ht 151.5 cm (4' 11.65) Wt 55.8 kg (123 lb 0.3 oz) LMP 07/03/2005 SpO2 98% BMI 24.31 kg/m? Vision Screening: Follows with optometry/ophthalmology Assessment/Plan Medicare annual wellness visit, subsequent (Z00.00) - Counseled on healthy diet and regular exercise - Fall avoidance information provided - Personalized prevention plan provided Additional Concerns The following concerns were also discussed with the patient: Patient reports anxiety due to significant stressors (see LENKA and PHQ-9 scores). She and her have full custody of their two grandchildren one of which is severely autistic. Personal mental health hx: none. Medication history: none Sleep: difficulty falling asleep Alcohol use: does not drink any alcohol Drug use: No Appetite: fair Suicidal Thoughts: No suicidal ideation, intent or plan Support: Limited to her Counseling: No She has chronic joint pains secondary to osteoarthritis, worse during the winter. She is taking Fosamax as prescribed, denies side effects. BP 118/72 Pulse 74 Resp 14 Ht 151.5 cm (4' 11.65) Wt 55.8 kg (123 lb 0.3 oz) LMP 07/03/2005 SpO2 98% BMI 24.31 kg/m? Physical Exam Vitals reviewed. Constitutional: Appearance: Normal appearance. Cardiovascular: Rate and Rhythm: Normal rate and regular rhythm. Heart sounds: Normal heart sounds. Pulmonary: Effort: Pulmonary effort is normal. Breath sounds: Normal breath sounds. No wheezing, rhonchi or rales. Skin: General: Skin is warm and dry. Neurological: Mental Status: She is alert. Psychiatric: Attention and Perception: Attention and perception normal. Mood and Affect: Mood is anxious and depressed. Speech: Speech normal. Behavior: Behavior normal. Thought Content: Thought content normal. Judgment: Judgment normal. ASSESSMENT/PLAN: 1. Medicare annual wellness visit, subsequent - ICD9: V70.0, ICD10: Z00.00 (primary diagnosis) See medicare wellness plan 2. Situational mixed anxiety and depressive disorder - ICD9: 309.28, ICD10: F43.23 Secondary to significant stressors. Discussed treatment options and benefits of counseling in combination with medication. - Shared Medical Decision Making was done: Medication: Cymbalta 20 mg daily. Benefits: Medication may help with anxiety and chronic joint pain. Risks: Possible side effects were discussed including nausea, drowsiness, dry mouth, headache. Possible interactions: n/a. Warnings: n/a. - reviewed benefits of sleep hygeine, diet and exercise - Follow-up in 4 weeks or sooner as needed - Instructed patient to contact office or exkcy-lz-ibbi after-hours promptly should condition worsen or any new symptoms appear. - Given information regarding 988 Suicide and Crisis Lifeline 3. Age-related osteoporosis without current pathological fracture - ICD9: 733.01, ICD10: M81.0 - continue tx with alendronate (Fosamax) - Reviewed the need for Calcium and Vitamin D supplements and weight bearing (more content not included)... [facility] 04-30-2024 History of Presen t illness Narrative Images from the original note were not included. Renate Infante is a 73 year old female here for a Medicare wellness visit. Medicare Health Risk Assessment General Health Fair Exercise: Minutes/Day Patient declined Exercise: Days/Week Patient declined Alcohol: Daily Use Never Alcohol: Drinks/Day Patient does not drink Alcohol: 6 or more drinks Never Feel off balance No Concerns: Teeth/Dentures No Concerns: Sexual function No Troubled by feelings Anxious; Stressed Frequency: Eating healthy diet Several days ADLs requiring help None of the above Safety precautions in home/vehicle Yes Smoke, vape, chews tobacco No Difficulty hearing No Difficulty seeing Yes Current Providers Specialists: I have reviewed specialist-related care of the patient in the medical record. Current care team: Patient Care Team: Frederic Luong MD as PCP - General Moon Feliz APRN.EXCELLENCE SPECIALIST as Test Engineering Manager (Internal Medicine) [facility] Medical/Family history review Reviewed and updated problem list, medical/surgical/family/social history, medications, and allergies. Opioid use review Opioid Medications (last 90 days) 03/24/2024 00:00 03/27/2024 23:59 Opioid Medications hydrocodone/acetaminophen 1 tablet q 8 H PRN ORAL -Rx End Details Outpatient prescription Anxiety/Depression screening PHQ-9 Score: 9 (Mild Depression) LENKA-7 Score: 13 (Moderate Anxiety) Recommendation: medication management Cognitive screening Mini Cog Score: 4 Cognitive screening reviewed and No further action needed (score 3-5). Functional Observation Was the patient's Timed Up & Go test unsteady or >= 12 seconds? No Advance Care Planning Patient was not able to provide a surrogate decision maker or written advance directives Measurements BP 118/72 Pulse 74 Resp 14 Ht 151.5 cm (4' 11.65) Wt 55.8 kg (123 lb 0.3 oz) LMP 07/03/2005 SpO2 98% BMI 24.31 kg/m Vision Screening: Follows with optometry/ophthalmology Assessment/Plan Medicare annual wellness visit, subsequent (Z00.00) - Counseled on healthy diet and regular exercise - Fall avoidance information provided - Personalized prevention plan provided Additional Concerns The following concerns were also discussed with the patient: Patient reports anxiety due to significant stressors (see LENKA and PHQ-9 scores). She and her have full custody of their two grandchildren one of which is severely autistic. Personal mental health hx: none. Medication history: none Sleep: difficulty falling asleep Alcohol use: does not drink any alcohol Drug use: No Appetite: fair Suicidal Thoughts: No suicidal ideation, intent or plan Support: Limited to her Counseling: No She has chronic joint pains secondary to osteoarthritis, worse during the winter. She is taking Fosamax as prescribed, denies side effects. BP 118/72 Pulse 74 Resp 14 Ht 151.5 cm (4' 11.65) Wt 55.8 kg (123 lb 0.3 oz) LMP 07/03/2005 SpO2 98% BMI 24.31 kg/m Physical Exam Vitals reviewed. Constitutional: Appearance: Normal appearance. Cardiovascular: Rate and Rhythm: Normal rate and regular rhythm. Heart sounds: Normal heart sounds. Pulmonary: Effort: Pulmonary effort is normal. Breath sounds: Normal breath sounds. No wheezing, rhonchi or rales. Skin: General: Skin is warm and dry. Neurological: Mental Status: She is alert. Psychiatric: Attention and Perception: Attention and perception normal. Mood and Affect: Mood is anxious and depressed. Speech: Speech normal. Behavior: Behavior normal. Thought Content: Thought content normal. Judgment: Judgment normal. ASSESSMENT/PLAN: 1. Medicare annual wellness visit, subsequent - ICD9: V70.0, ICD10: Z00.00 (primary diagnosis) See medicare wellness plan 2. Situational mixed anxiety and depressive disorder - ICD9: 309.28, ICD10: F43.23 Secondary to significant stressors. Discussed treatment options and benefits of counseling in combination with medication. - Shared Medical Decision Making was done: Medication: Cymbalta 20 mg daily. Benefits: Medication may help with anxiety and chronic joint pain. Risks: Possible side effects were discussed including nausea, drowsiness, dry mouth, headache. Possible interactions: n/a. Warnings: n/a. - reviewed benefits of sleep hygeine, diet and exercise - Follow-up in 4 weeks or sooner as needed - Instructed patient to contact office or [id number] after-hours promptly should condition worsen or any new symptoms appear. - Given information regarding 988 Suicide and Crisis Lifeline 3. Age-related osteoporosis without current pathological fracture - ICD9: 733.01, ICD10: M81.0 - continue tx with alendronate (Fosamax) - Reviewed the need for Calcium and Vitamin D supplements and weight bearing exercise as tolerated - ALENDRONATE 70 MG TABLET 4. Hyperlipidemia, mixed - ICD9: 272.2, ICD10: E78.2 - Control undetermined, due for labs - LIPID PANEL BASIC 5. Vitamin D deficiency - ICD9: 268.9, ICD10: E55.9 Recheck - VITAMIN D 25 HYDROXY 6. Screening for depression - ICD9: V79.0, ICD10: Z13.31 - DEPRESSION SCREENING 7. Encounter for screening examination for other mental health and behavioral disorders - ICD9: V79.8, ICD10: Z13.39 - ANXIETY SCREENING 8. Encounter for immunization - ICD9: V03.89, ICD10: Z23 - INFLUENZA VACCINE, PRSV FREE, AGE 65+ YR, HIGH DOSE, TRIVALENT (FLUZONE HIGH-DOSE) - [employer] COVID-19 VACCINE AGE 12+ YR (COMIRNATY) Moon Feliz APRN.EXCELLENCE SPECIALIST documented in this encounter [facility] 04-27-2024 Telephone encounter Note Left message for patient to call back about urine culture results. Urine culture was positive and a prescription for Macrobid was sent to her pharmacy, [facility]. She should otherwise follow-up with her family doctor if symptoms are not improving. 1235-patient returned phone call and she was notified of urine culture results and that prescription was called into her pharmacy. [facility] 04-27-2024 Miscellaneous Notes Left message for patient to call back about urine culture results. Urine culture was positive and a prescription for Macrobid was sent to her pharmacy, [facility]. She should otherwise follow-up with her family doctor if symptoms are not improving. 1235-patient returned phone call and she was notified of urine culture results and that prescription was called into her pharmacy. documented in this encounter [facility] 04-24-2024 Note HNO ID: [id number] Author: AGUS GARCIA APRN.CNP Service: ? Author Type: Nurse Practitioner Type: Progress Notes Filed: 04/24/2024 13:28 Note Text: CC: Patient presents with: Urinary Problem: Pain and urgency with urination x 1 week No risk of std HPI Renate Infante is a 73 year old female who presents with complaint of possible UTI. These symptoms have been present for 7 days. Associated symptoms: burning and urgency Denies: pressure, fever, chills, sweats, abdominal pain, and flank pain Treatments: nothing The ROS was otherwise negative. PMH, Medications, labs, allergies, and recent past visits with PCP were reviewed and updated as able. PHYSICAL EXAM: BP 151/77 Pulse 72 Temp 36.2 ?C (97.2 ?F) Resp 20 Wt 57 kg (125 lb 10.6 oz) LMP 07/03/2005 SpO2 99% BMI 22.98 kg/m? General: Well appearing and alert CV: Regular rate and rhythm without obvious murmur Lungs: clear to auscultation bilaterally Back: straight and symmetric Abdomen: soft, nontender, nondistended PAST MEDICAL HISTORY Diagnosis Date Acute gastritis without mention of hemorrhage Age-related osteoporosis without current pathological fracture 08/11/2022 Allergic rhinitis, cause unspecified Anemia, unspecified 11/21/2005 Anxiety and depression 05/04/2015 Arthritis Benign neoplasm of colon Carpal tunnel syndrome 03/05/2006 Cervicalgia 1998 Clostridium difficile diarrhea 08/14/2014 Diarrhea Diarrhea Headache(784.0) 11/21/2005 Insomnia 05/04/2015 Internal hemorrhoids without mention of complication Irritable bowel syndrome 11/21/2005 Lumbago 07/16/2006 narcotic contract signed,scanned in and in paper chart 07/28/09. Migraine without aura, without mention of intractable migraine without mention of status migrainosus Nonspecific abnormal toxicology (inconsistent) 05/05/2015 Pain in joint, lower leg 03/05/2006 PAST SURGICAL HISTORY Procedure Laterality Date APPENDECTOMY ARTHROSCOPY KNEE DIAGNOSTIC W/WO SYNOVIAL BX SPX 04/16/1987 Arthroscopy, knee, Dr. Griggs COLONOSCOPY 12/28/2022 repeat in 10 years COLONOSCOPY FLX DX W/COLLJ SPEC WHEN PFRMD 05/17/2003 Colonoscopy, Dr. Disla COLONOSCOPY FLX DX W/COLLJ SPEC WHEN PFRMD 05/23/2013 Colonoscopy COLSC FLX W/RMVL OF TUMOR POLYP LESION SNARE TQ 11/22/2007 EGD TRANSORAL BIOPSY SINGLE/MULTIPLE 05/10/2007 ESOPHAGOGASTRODUODENOSCOPY TRANSORAL DIAGNOSTIC 09/14/1994 EGD INCISE FINGER TENDON SHEATH Right 08/31/2023 Right middle trigger finger release LAMINECTOMY W/O FFD 1/2 VERT SEG LUMBAR [...] W/REMOVAL TUBES/OV 04/16/2012 ALLERGIES Meloxicam and Septra [Sulfamethoxazole-Trimethoprim] MEDICATIONS alendronate (FOSAMAX) 70 mg tablet Take 1 tablet by mouth one time a week. Take with a full glass of water, on an empty stomach; do NOT lie down for 30minutes. diclofenac, EC, (VOLTAREN) 75 mg EC tablet Take 1 tablet by mouth two times a day. For pain/inflammation. Take with food. (Patient not taking: Reported on 04/24/2024) FAMILY HISTORY Problem Relation Age of Onset Hypertension Mother Diabetes Mother Heart Mother Congestive Heart Failure Cataract Mother COPD Father of COPD Coronary Artery Disease Father Heart Father Cataract Sister Cataract Brother Cataract Brother Asthma Brother 2 brothers Cancer Brother metastatic, etiol? Social History Tobacco Use Smoking status: Never Smokeless tobacco: Never Vaping Use Vaping status: Never Used Substance Use Topics Alcohol use: Not Currently Drug use: No ASSESSMENT/PLAN: 1. Urinary urgency - ICD9: 788.63, ICD10: R39.15 - UA DIP, URINE (POC) - BACTERIAL CULTURE, URINE No medication at this time. If positive please prescribe antibiotic accordingly Potential red flag symptoms discussed with the patient. Reviewed appropriate action plan to take if red flag symptoms occur. Patient agreeable to treatment plan. Will follow up with PCP if everything is negative and still having symptoms. Agus Garcia APRN.[facility] 04-24-2024 History of Presen t illness Narrative CC: Patient presents with: Urinary Problem: Pain and urgency with urination x 1 week No risk of std HPI Renate Infante is a 73 year old female who presents with complaint of possible UTI. These symptoms have been present for 7 days. Associated symptoms: burning and urgency Denies: pressure, fever, chills, sweats, abdominal pain, and flank pain Treatments: nothing The ROS was otherwise negative. PMH, Medications, labs, allergies, and recent past visits with PCP were reviewed and updated as able. PHYSICAL EXAM: BP 151/77 Pulse 72 Temp 36.2 C (97.2 F) Resp 20 Wt 57 kg (125 lb 10.6 oz) LMP 07/03/2005 SpO2 99% BMI 22.98 kg/m General: Well appearing and alert CV: Regular rate and rhythm without obvious murmur Lungs: clear to auscultation bilaterally Back: straight and symmetric Abdomen: soft, nontender, nondistended PAST MEDICAL HISTORY Diagnosis Date Acute gastritis without mention of hemorrhage Age-related osteoporosis without current pathological fracture 08/11/2022 Allergic rhinitis, cause unspecified Anemia, unspecified 11/21/2005 Anxiety and depression 05/04/2015 Arthritis Benign neoplasm of colon Carpal tunnel syndrome 03/05/2006 Cervicalgia 1998 Clostridium difficile diarrhea 08/14/2014 Diarrhea Diarrhea Headache(784.0) 11/21/2005 Insomnia 05/04/2015 Internal hemorrhoids without mention of complication Irritable bowel syndrome 11/21/2005 Lumbago 07/16/2006 narcotic contract signed,scanned in and in paper chart 07/28/09. Migraine without aura, without mention of intractable migraine without mention of status migrainosus Nonspecific abnormal toxicology (inconsistent) 05/05/2015 Pain in joint, lower leg 03/05/2006 PAST SURGICAL HISTORY Procedure Laterality Date APPENDECTOMY ARTHROSCOPY KNEE DIAGNOSTIC W/WO SYNOVIAL BX SPX 04/16/1987 Arthroscopy, knee, Dr. Griggs COLONOSCOPY 12/28/2022 repeat in 10 years COLONOSCOPY FLX DX W/COLLJ SPEC WHEN PFRMD 05/17/2003 Colonoscopy, Dr. Disla COLONOSCOPY FLX DX W/COLLJ SPEC WHEN PFRMD 05/23/2013 Colonoscopy COLSC FLX W/RMVL OF TUMOR POLYP LESION SNARE TQ 11/22/2007 EGD TRANSORAL BIOPSY SINGLE/MULTIPLE 05/10/2007 ESOPHAGOGASTRODUODENOSCOPY TRANSORAL DIAGNOSTIC 09/14/1994 EGD INCISE FINGER TENDON SHEATH Right 08/31/2023 Right middle trigger finger release LAMINECTOMY W/O FFD 1/2 VERT SEG LUMBAR [...] 1960s Tonsillectomy VAGINAL HYSTERECTOMY W/REMOVAL TUBES/OV 04/16/2012 ALLERGIES Meloxicam and Septra [Sulfamethoxazole-Trimethoprim] MEDICATIONS alendronate (FOSAMAX) 70 mg tablet Take 1 tablet by mouth one time a week. Take with a full glass of water, on an empty stomach; do NOT lie down for 30minutes. diclofenac, EC, (VOLTAREN) 75 mg EC tablet Take 1 tablet by mouth two times a day. For pain/inflammation. Take with food. (Patient not taking: Reported on 04/24/2024) FAMILY HISTORY Problem Relation Age of Onset Hypertension Mother Diabetes Mother Heart Mother Congestive Heart Failure Cataract Mother COPD Father of COPD Coronary Artery Disease Father Heart Father Cataract Sister Cataract Brother Cataract Brother Asthma Brother 2 brothers Cancer Brother metastatic, etiol? Social History Tobacco Use Smoking status: Never Smokeless tobacco: Never Vaping Use Vaping status: Never Used Substance Use Topics Alcohol use: Not Currently Drug use: No ASSESSMENT/PLAN: 1. Urinary urgency - ICD9: 788.63, ICD10: R39.15 - UA DIP, URINE (POC) - BACTERIAL CULTURE, URINE No medication at this time. If positive please prescribe antibiotic accordingly Potential red flag symptoms discussed with the patient. Reviewed appropriate action plan to take if red flag symptoms occur. Patient agreeable to treatment plan. Will follow up with PCP if everything is negative and still having symptoms. Agus Garcia APRN.SHOAIB documented in this encounter [facility] 03-24-2024 Note HNO ID: [id number] Author: FREDERIC LUONG MD Service: ? Author Type: Physician Type: Progress Notes Filed: 03/24/2024 20:04 Note Text: This note was created using NoteWriter. Subjective Patient presents with: ER F/U: Fall 03/20/2024 Renate Infante is a 73 year old female. She had an accidental fall and was evaluated in the ER 03/20/2024. She was prescribed Lidoderm and cyclobenzaprine for left rib pain. She was taking ibuprofen. CT of the chest, CT of the neck, and CT of the head showed no acute process. Patient thought she had a hairline fracture, but pain was not improving, and interfering with activities of daily living. Pain was rated 8/10. Review of Systems Constitutional: Negative for fatigue and fever. Respiratory: Negative for chest tightness and shortness of breath. Cardiovascular: Negative for chest pain. Gastrointestinal: Negative for abdominal pain, nausea and vomiting. Neurological: Negative for dizziness, syncope and light-headedness. ACTIVE PROBLEM LIST Hyperlipidemia, Mixed Vitamin D Deficiency Stress Incontinence, Female Age-Related Osteoporosis Without Current Pathological Fracture Memory Changes Social History Tobacco Use Smoking status: Never Smokeless tobacco: Never Vaping Use Vaping status: Never Used Substance Use Topics Alcohol use: Not Currently Drug use: No Current Outpatient Medications Medication Sig naproxen sodium (ALEVE ORAL) Take by mouth. IBUPROFEN ORAL Take by mouth. alendronate (FOSAMAX) 70 mg tablet Take 1 tablet by mouth one time a week. Take with a full glass of water, on an empty stomach; do NOT lie down for 30minutes. acetaminophen 650 mg CR tablet Take 650 mg by mouth every 8 hours as needed. No current facility-administered medications for this visit. Objective BP 138/80 Pulse 90 Temp 37.3 ?C (99.1 ?F) (Tympanic) Resp 14 Wt 56.5 kg (124 lb 9 oz) LMP 07/03/2005 SpO2 98% BMI 22.78 kg/m? Physical Exam Constitutional: General: She is not in acute distress. Appearance: She is not ill-appearing or diaphoretic. HENT: Head: Atraumatic. Cardiovascular: Heart sounds: Normal heart sounds. Pulmonary: Effort: No respiratory distress. Breath sounds: Normal breath sounds. No wheezing or rales. Comments: Left lateral chest wall tenderness. Chest: Chest wall: Tenderness present. No deformity, swelling or crepitus. Abdominal: General: There is no distension. Palpations: Abdomen is soft. Tenderness: There is no abdominal tenderness. Musculoskeletal: Cervical back: Neck supple. No tenderness. Skin: Findings: No bruising or rash. Neurological: Mental Status: She is alert. Assessment and Plan 1. Rib contusion, left, subsequent encounter - ICD9: V58.89, 922.1, ICD10: S20.212D (primary diagnosis) Shared medical decision making was done. Try different NSAID. NSAID intolerance noted. One time [place] prescription was discussed. Risks of opioids were reviewed. - DICLOFENAC SODIUM 75 MG TABLET,DELAYED RELEASE - HYDROCODONE 5 MG-ACETAMINOPHEN 325 MG TABLET 2. Elevated blood pressure reading - ICD9: 796.2, ICD10: R03.0 - Possibly from pain. - Goal of BP <130/80 Frederic Luong MD [facility] 03-24-2024 History of Presen t illness Narrative This note was created using Currenseeriter. Subjective Patient presents with: ER F/U: Fall 03/20/2024 Renate Infante is a 73 year old female. She had an accidental fall and was evaluated in the ER 03/20/2024. She was prescribed Lidoderm and cyclobenzaprine for left rib pain. She was taking ibuprofen. CT of the chest, CT of the neck, and CT of the head showed no acute process. Patient thought she had a hairline fracture, but pain was not improving, and interfering with activities of daily living. Pain was rated 8/10. Review of Systems Constitutional: Negative for fatigue and fever. Respiratory: Negative for chest tightness and shortness of breath. Cardiovascular: Negative for chest pain. Gastrointestinal: Negative for abdominal pain, nausea and vomiting. Neurological: Negative for dizziness, syncope and light-headedness. ACTIVE PROBLEM LIST Hyperlipidemia, Mixed Vitamin D Deficiency Stress Incontinence, Female Age-Related Osteoporosis Without Current Pathological Fracture Memory Changes Social History Tobacco Use Smoking status: Never Smokeless tobacco: Never Vaping Use Vaping status: Never Used Substance Use Topics Alcohol use: Not Currently Drug use: No Current Outpatient Medications Medication Sig naproxen sodium (ALEVE ORAL) Take by mouth. IBUPROFEN ORAL Take by mouth. alendronate (FOSAMAX) 70 mg tablet Take 1 tablet by mouth one time a week. Take with a full glass of water, on an empty stomach; do NOT lie down for 30minutes. acetaminophen 650 mg CR tablet Take 650 mg by mouth every 8 hours as needed. No current facility-administered medications for this visit. Objective BP 138/80 Pulse 90 Temp 37.3 C (99.1 F) (Tympanic) Resp 14 Wt 56.5 kg (124 lb 9 oz) LMP 07/03/2005 SpO2 98% BMI 22.78 kg/m Physical Exam Constitutional: General: She is not in acute distress. Appearance: She is not ill-appearing or diaphoretic. HENT: Head: Atraumatic. Cardiovascular: Heart sounds: Normal heart sounds. Pulmonary: Effort: No respiratory distress. Breath sounds: Normal breath sounds. No wheezing or rales. Comments: Left lateral chest wall tenderness. Chest: Chest wall: Tenderness present. No deformity, swelling or crepitus. Abdominal: General: There is no distension. Palpations: Abdomen is soft. Tenderness: There is no abdominal tenderness. Musculoskeletal: Cervical back: Neck supple. No tenderness. Skin: Findings: No bruising or rash. Neurological: Mental Status: She is alert. Assessment and Plan 1. Rib contusion, left, subsequent encounter - ICD9: V58.89, 922.1, ICD10: S20.212D (primary diagnosis) Shared medical decision making was done. Try different NSAID. NSAID intolerance noted. One time [place] prescription was discussed. Risks of opioids were reviewed. - DICLOFENAC SODIUM 75 MG TABLET,DELAYED RELEASE - HYDROCODONE 5 MG-ACETAMINOPHEN 325 MG TABLET 2. Elevated blood pressure reading - ICD9: 796.2, ICD10: R03.0 - Possibly from pain. - Goal of BP <130/80 Frederic Luong MD documented in this encounter [facility] 03-24-2024 Note HNO ID: [id number] Author: DIONE CHAPPELL MA Service: ? Author Type: Entry Level Electrical Engineer Type: Progress Notes Filed: 03/24/2024 12:31 Note Text: POPULATION HEALTH NAVIGATION OUTREACH Action/FYI CM Pool Message: Type: ACM We are forwarding this patient to Network Navigation to schedule a [place] 03/20/24 ED PCP follow-up appointment. Patient discharged from [facility] Discharge date: 03/20/24 Seen for: Fall Outcome: 1st attempt. Spoke with patient. Appointment scheduled for today. Reason for Outreach Community Monitoring/Network Navigator Pools AND Phone Line: AC Patient Contacted: Spoke to patient/parent/or legal guardian Patient identified by name and : Yes Community Monitoring/Network Navigator Pools AND Phone Line actions taken: Patient scheduled: ER Follow-up 03/24/2024 in [facility] with FREDERIC LUONG - ED follow up, [facility] 03/20/24, DX:Fall, Utilization Review Navigation Signature: Dione Chappell MA March 24, 2024 12:23 PM [facility] 03-24-2024 History of Presen t illness Narrative POPULATION HEALTH NAVIGATION OUTREACH Action/FYI CM Pool Message: Type: ACM We are forwarding this patient to Network Navigation to schedule a [place] 03/20/24 ED PCP follow-up appointment. Patient discharged from [facility] Discharge date: 03/20/24 Seen for: Fall Outcome: 1st attempt. Spoke with patient. Appointment scheduled for today. Reason for Outreach Community Monitoring/Network Navigator Pools & Phone Line: ACM Patient Contacted: Spoke to patient/parent/or legal guardian Patient identified by name and : Yes Community Monitoring/Network Navigator Pools & Phone Line actions taken: Patient scheduled: ER Follow-up 03/24/2024 in [facility] with FREDERIC LUONG - ED follow up, [facility] 03/20/24, DX:Fall, Utilization Review Navigation Signature: Dione Chappell MA March 24, 2024 12:[address] [facility] CECILY RN Patient identified by name and date of . Reason for review or outreach: Chart Review Cecily Priority Emergency Department Utilization REQUESTED ACTION/FYI: Please see ED Utilization summary below Noted increase utilization past 6 months for Dx reason related to Fall/Balance(2) A follow-up appointment is not noted in patient's record. We are forwarding this patient to Network Navigation to schedule a [place] 03/20/24 ED PCP follow-up appointment. Thank you Note to be added to appt for PCP utilization review Thank you Exclusion Criteria Does not meet exclusion criteria Utilization in past 6 months: # Occurrences Date Last Occurrence Hospital Admission 1 08/31/23 Hospital Observation 0 N/A ED 4 03/20/24 SNF / Acute Rehab / LTAC 0 N/A ED DIAGNOSES/REASON(S) FOR ED USE: [place] ED 03/20/24- Dx Fall [place] [facility] 12/30/23-Dx Dental Abscess [place] [facility] 10/09/23-Dx Fall [place] [facility] 07/01/23-DX knee OTHER FINDINGS/SUMMARY: Noted increase utilization past 6 months for Dx reason related to Fall/Balance(2) Patient Attributed To: QAE Payer: Lulu COLIN Action Taken: Referrals/Routed: Population Health Navigation: Appointment. Router to [facility] [[id number]] Emergency Department Utilization TIPS FOR SUCCESS WITH THIS MEASURE - Provider focus on chronic disease management including regular provider visits to prevent and minimize complications and exacerbations Encourage annual wellness visits and wellness activities, screenings and immunizations Education patients on personal safety, fall prevention, lifestyle choices Talk with members about appropriate ED useand other options: Same-day appointments Calling office after-hours line Urgent care / Express care Telehealth Nurse english as a second language teacher or Medicare provider nurse triage line Contact made with patient: No, Chart review only. Signature: Farideh RICO,RN,[facility] [employer] Management Contract RN [phone] documented in this encounter [facility] 03-24-2024 Note HNO ID: [id number] Author: FARIDEH FLORES RN Service: ? Author Type: Registered Nurse Type: Progress Notes Filed: 03/24/2024 12:12 Note Text: ACM CECILY RN Patient identified by name and date of . Reason for review or outreach: Chart Review Cecily Priority Emergency Department Utilization REQUESTED ACTION/FYI: Please see ED Utilization summary below Noted increase utilization past 6 months for Dx reason related to Fall/Balance(2) A follow-up appointment is not noted in patient's record. We are forwarding this patient to Network Navigation to schedule a [place] 03/20/24 ED PCP follow-up appointment. Thank you Note to be added to appt for PCP utilization review Thank you Exclusion Criteria Does not meet exclusion criteria Utilization in past 6 months: # Occurrences Date Last Occurrence Hospital Admission 1 08/31/23 Hospital Observation 0 N/A ED 4 03/20/24 SNF / Acute Rehab / LTAC 0 N/A ED DIAGNOSES/REASON(S) FOR ED USE: [place] ED 03/20/24- Dx Fall [place] [facility] 12/30/23-Dx Dental Abscess [place] [facility] 10/09/23-Dx Fall [place] [facility] 07/01/23-DX knee OTHER FINDINGS/SUMMARY: Noted increase utilization past 6 months for Dx reason related to Fall/Balance(2) Patient Attributed To: QAE Payer: Lulu DIXIE Action Taken: Referrals/Routed: Population Health Navigation: Appointment. Router to [facility] [[id number]] Emergency Department Utilization TIPS FOR SUCCESS WITH THIS MEASURE - Provider focus on chronic disease management including regular provider visits to prevent and minimize complications and exacerbations Encourage annual wellness visits and wellness activities, screenings and immunizations Education patients on personal safety, fall prevention, lifestyle choices Talk with members about appropriate ED useand other options: Same-day appointments Calling office after-hours line Urgent care / Express care Telehealth Nurse english as a second language teacher or Medicare provider nurse triage line Contact made with patient: No, Chart review only. Signature: Farideh Flores MSN,RN,[facility] [employer] Management Contract RN [phone] [facility] 03-24-2024 Note Patient Outreach (AM [facility] RENATE INFANTE I ([id number]) 1950 F Date Time Provider Department 03/24/24 WHITE, FARIDEH [facility] During your visit today, we recorded the following information about you: Farideh Flores RN 03/24/2024 12:12 PM Signed ACM CECILY RN Patient identified by name and date of . Reason for review or outreach: Chart Review Cecily Priority Emergency Department Utilization REQUESTED ACTION/FYI: Please see ED Utilization summary below Noted increase utilization past 6 months for Dx reason related to Fall/Balance(2) A follow-up appointment is not noted in patient's record. We are forwarding this patient to Network Navigation to schedule a [place] 03/20/24 ED PCP follow-up appointment. Thank you Note to be added to appt for PCP utilization review Thank you Exclusion Criteria Does not meet exclusion criteria Utilization in past 6 months: # Occurrences Date Last Occurrence Hospital Admission 1 08/31/23 Hospital Observation 0 N/A ED 4 03/20/24 SNF / Acute Rehab / LTAC 0 N/A ED DIAGNOSES/REASON(S) FOR ED USE: [place] ED 03/20/24- Dx Fall [place] [facility] 12/30/23-Dx Dental Abscess [place] [facility] 10/09/23-Dx Fall [place] [facility] 07/01/23-DX knee OTHER FINDINGS/SUMMARY: Noted increase utilization past 6 months for Dx reason related to Fall/Balance(2) Patient Attributed To: QAE Payer: Lulu COLIN Action Taken: Referrals/Routed: Population Health Navigation: Appointment. Router to [facility] [[id number]] Emergency Department Utilization TIPS FOR SUCCESS WITH THIS MEASURE - Provider focus on chronic disease management including regular provider visits to prevent and minimize complications and exacerbations Encourage annual wellness visits and wellness activities, screenings and immunizations Education patients on personal safety, fall prevention, lifestyle choices Talk with members about appropriate ED useand other options: Same-day appointments Calling office after-hours line Urgent care / Express care Telehealth Nurse english as a second language teacher or Medicare provider nurse triage line Contact made with patient: No, Chart review only. Signature: Farideh Flores MSN,RN,[facility] Staple Cutter Management Contract RN [phone] Dione Chappell MA 03/24/2024 12:31 PM Signed POPULATION HEALTH NAVIGATION OUTREACH Action/FYI [facility] Message: Type: ACM We are forwarding this patient to Network Navigation to schedule a [place] 03/20/24 ED PCP follow-up appointment. Patient discharged from [facility] Discharge date: 03/20/24 Seen for: Fall Outcome: 1st attempt. Spoke with patient. Appointment scheduled for today. Reason for Outreach Community Monitoring/Network Navigator Pools AND Phone Line: [facility] Patient Contacted: Spoke to patient/parent/or legal guardian Patient identified by name and : Yes Community Monitoring/Network Navigator Pools AND Phone Line actions taken: Patient scheduled: ER Follow-up 03/24/2024 in [facility] with FREDERIC LUONG - ED follow up, [facility] 03/20/24, DX:Fall, Utilization Review Navigation Signature: Dione Chappell MA March 24, 2024 12:23 PM Allergies As of Date: 03/24/2024 Noted Allergy Reaction MELOXICAM 10/21/2012 14 - Other: See Comments Comments: muscle tremors/spasms SEPTRA (SULFAMETHOXAZOLE-TRIMETHO*06/04 4 - Hives Date Reviewed: 01/21/2024 Reviewed by: Moon Feliz, SHILO.EXCELLENCE SPECIALIST - Fully Assessed Prescriptions as of 03/24/2024 - naproxen sodium (ALEVE ORAL) Take by mouth. - IBUPROFEN ORAL Take by mouth. - alendronate (FOSAMAX) 70 mg tablet Take 1 tablet by mouth one time a week. Take with a full glass of water, on an empty stomach; do NOT lie down for 30minutes. - acetaminophen 650 mg CR tablet Take 650 mg by mouth every 8 hours as needed. Meds Comments as of 06/15/2010: Problem List As Of Date 03/24/2024 Noted Resolved Irritable Bowel Syndrome [K58.9] 11/21/2005 HEADACHE [R51] 11/21/2005 01/02/2006 Mgrn Wo Aura Wo [facility] Mgr [G43.009] 01/02/2006 10/21/2013 Carpal tunnel syndrome [...] F32.A] 05/04/2015 Nonspecific abnormal toxicology (inconsistent) *05/05/2015 Age-relat (more content not included)... [facility] 01-23-2024 Telephone encounter Note Spoke to amanuel Jeong results. Patient reports she is feeling much better, no blood or clots in urine, she will finish ATB as prescribed. Lori Rausch LPN [facility] 01-23-2024 Miscellaneous Notes Spoke to amanuel Jeong results. Patient reports she is feeling much better, no blood or clots in urine, she will finish ATB as prescribed. Lori Rausch LPN documented in this encounter [facility] 01-21-2024 Instructions Moon Feliz, AUTOMATIC MACHINES SUPERVISOR.EXCELLENCE SPECIALIST - 01/21/2024 10:56 AM EDT INSTRUCTIONS: 1. Take antibiotic exactly as directed. Be sure to take all the medication prescribed, even if your symptoms disappear. If you stop treatment early, the infection may not be fully treated and the symptoms could come back again. 2. Get plenty of rest. You may take acetaminophen for fever and aches. 3. Drink 6 to 8 glasses of fluids, especially water, every day. This helps wash out germs from your urinary tract. Cranberry juice or other sources of vitamin C are also good for you. Go to the ER if: abdominal pain worsens, you are unable to urinate after four hours, high fever, vomiting that won't stop, rigid/hard abdomen. documented in this encounter [facility] 01-21-2024 History of Presen t illness Narrative CC: Patient presents with: Hematuria: Since 3 am HPI Renate Infante is a 73 year old female who presents with complaint of possible UTI. Patient reports she woke up around 3 am to urinate and noticed urine was bloody with multiple clots, persisting since then. Other associated symptoms: hesitancy, urgency, frequency, back pain, chills, and pelvic cramping with urination Denies: fever, abnormal vaginal discharge or bleeding, nausea, vomiting, black/bloody stools, rectal bleeding, history of kidney stones, taking blood thinners, history of smoking, recent respiratory illness/sore throat Treatments: naproxen with temporary relief PMH: Non-contributory Past surgical history: Non-contributory Review of Systems Respiratory: Negative for shortness of breath. Cardiovascular: Negative for chest pain, palpitations and leg swelling. Neurological: Negative for dizziness, syncope, weakness, light-headedness and headaches. Hematological: Negative for adenopathy. Does not bruise/bleed easily. PAST MEDICAL HISTORY Diagnosis Date Acute gastritis without mention of hemorrhage Age-related osteoporosis without current pathological fracture 08/11/2022 Allergic rhinitis, cause unspecified Anemia, unspecified 11/21/2005 Arthritis Benign neoplasm of colon Carpal tunnel syndrome [...] SPX 04/16/1987 Arthroscopy, knee, Dr. Griggs COLONOSCOPY 12/28/2022 repeat in 10 years COLONOSCOPY FLX DX W/COLLJ SPEC WHEN PFRMD 05/17/2003 Colonoscopy, Dr. Disla COLONOSCOPY FLX DX W/COLLJ SPEC WHEN PFRMD 05/23/2013 Colonoscopy COLSC FLX W/RMVL OF TUMOR POLYP LESION SNARE TQ 11/22/2007 EGD TRANSORAL BIOPSY SINGLE/MULTIPLE 05/10/2007 ESOPHAGOGASTRODUODENOSCOPY TRANSORAL DIAGNOSTIC 09/14/1994 EGD INCISE FINGER TENDON SHEATH Right 08/31/2023 Right middle trigger finger release LAMINECTOMY W/O FFD / VERT SEG LUMBAR 04/16/1985 Laminectomy, lumbar L5,S1 [...] 1960s Tonsillectomy VAGINAL HYSTERECTOMY W/REMOVAL TUBES/OV 04/16/2012 ALLERGIES Meloxicam and Septra [Sulfamethoxazole-Trimethoprim] MEDICATIONS naproxen sodium (ALEVE ORAL) Take by mouth. IBUPROFEN ORAL Take by mouth. predniSONE (DELTASONE) 10 mg tablet TAKE BY MOUTH 4 TABLETS DAILY FOR 2 DAYS, THEN 3 TABLETS DAILY FOR 2 DAYS, THEN 2 TABLETS DAILY FOR 2 DAYS, THEN 1 TABLET DAILY FOR 2 DAYS. (Patient not taking: Reported on 08/27/2023) alendronate (FOSAMAX) 70 mg tablet Take 1 tablet by mouth one time a week. Take with a full glass of water, on an empty stomach; do NOT lie down for 30minutes. acetaminophen 650 mg CR tablet Take 650 [...] Never Smokeless tobacco: Never Vaping Use Vaping status: Never Used Substance Use Topics Alcohol use: Not Currently Drug use: No BP 136/86 Pulse 81 Temp 37.2 C (98.9 F) (Temporal) Resp 14 Wt 56.3 kg (124 lb 1.9 oz) LMP 07/03/2005 SpO2 95% BMI 22.70 kg/m Physical Exam Vitals reviewed. Constitutional: Appearance: Normal appearance. HENT: Mouth/Throat: Mouth: Mucous membranes are moist. Pharynx: Oropharynx is clear. Eyes: Conjunctiva/sclera: Conjunctivae normal. Cardiovascular: Rate and Rhythm: Normal rate and regular rhythm. Heart sounds: Normal heart sounds. No murmur heard. Pulmonary: Effort: Pulmonary effort is normal. Breath sounds: Normal breath sounds. No wheezing, rhonchi or rales. Abdominal: General: Bowel sounds are normal. There is no distension. Palpations: Abdomen is soft. There is no hepatomegaly, splenomegaly or mass. Tenderness: There is abdominal tenderness (suprapubic, moderate). There is no right CVA tenderness, left CVA tenderness, guarding or rebound. Skin: General: Skin is warm and dry. Neurological: Mental Status: She is alert. ASSESSMENT/PLAN: 1. Gross hematuria - ICD9: 599.71, ICD10: R31.0 (primary diagnosis) Etiology unclear. Differential Diagnosis includes Kidney stones/colic, Cystitis, and pyelonephritis - UA DIP, URINE (POC) in office positive for large blood, nitrites, large leuks, protein Send urine for: - URINE CULTURE - URINALYSIS, WITH MICROSCOPIC Stat labs: - COMPLETE BLOOD COUNT - COMPREHENSIVE METABOLIC PANEL Start Macrobid BID x 7 days Follow-up pending results. To ER for any worsening symptoms 2. Pelvic pain - ICD9: [id number], ICD10: R10.2 As above Prescription instructions reviewed with patient as applicable. Potential red flag symptoms discussed with the patient. Reviewed appropriate action plan to take if red flag symptoms occur. Patient agreeable to treatment plan. Moon Feliz APRN.EXCELLENCE SPECIALIST documented in this encounter [facility] 01-21-2024 Note HNO ID: [id number] Author: MOON FELIZ APRN.CNP Service: ? Author Type: Nurse Practitioner Type: Progress Notes Filed: 01/21/2024 11:05 Note Text: CC: Patient presents with: Hematuria: Since 3 am HPI Renate Infante is a 73 year old female who presents with complaint of possible UTI. Patient reports she woke up around 3 am to urinate and noticed urine was bloody with multiple clots, persisting since then. Other associated symptoms: hesitancy, urgency, frequency, back pain, chills, and pelvic cramping with urination Denies: fever, abnormal vaginal discharge or bleeding, nausea, vomiting, black/bloody stools, rectal bleeding, history of kidney stones, taking blood thinners, history of smoking, recent respiratory illness/sore throat Treatments: naproxen with temporary relief PMH: Non-contributory Past surgical history: Non-contributory Review of Systems Respiratory: Negative for shortness of breath. Cardiovascular: Negative for chest pain, palpitations and leg swelling. Neurological: Negative for dizziness, syncope, weakness, light-headedness and headaches. Hematological: Negative for adenopathy. Does not bruise/bleed easily. PAST MEDICAL HISTORY Diagnosis Date Acute gastritis without mention of hemorrhage Age-related osteoporosis without current pathological fracture 08/11/2022 Allergic rhinitis, cause unspecified Anemia, unspecified 11/21/2005 Arthritis Benign neoplasm of colon Carpal tunnel syndrome [...] SPX 04/16/1987 Arthroscopy, knee, Dr. Griggs COLONOSCOPY 12/28/2022 repeat in 10 years COLONOSCOPY FLX DX W/COLLJ SPEC WHEN PFRMD 05/17/2003 Colonoscopy, Dr. Disla COLONOSCOPY FLX DX W/COLLJ SPEC WHEN PFRMD 05/23/2013 Colonoscopy COLSC FLX W/RMVL OF TUMOR POLYP LESION SNARE TQ 11/22/2007 EGD TRANSORAL BIOPSY SINGLE/MULTIPLE 05/10/2007 ESOPHAGOGASTRODUODENOSCOPY TRANSORAL DIAGNOSTIC 09/14/1994 EGD INCISE FINGER TENDON SHEATH Right 08/31/2023 Right middle trigger finger release LAMINECTOMY W/O FFD 1/2 VERT SEG LUMBAR [...] W/REMOVAL TUBES/OV 04/16/2012 ALLERGIES Meloxicam and Septra [Sulfamethoxazole-Trimethoprim] MEDICATIONS naproxen sodium (ALEVE ORAL) Take by mouth. IBUPROFEN ORAL Take by mouth. predniSONE (DELTASONE) 10 mg tablet TAKE BY MOUTH 4 TABLETS DAILY FOR 2 DAYS, THEN 3 TABLETS DAILY FOR 2 DAYS, THEN 2 TABLETS DAILY FOR 2 DAYS, THEN 1 TABLET DAILY FOR 2 DAYS. (Patient not taking: Reported on 08/27/2023) alendronate (FOSAMAX) 70 mg tablet Take 1 tablet by mouth one time a week. Take with a full glass of water, on an empty stomach; do NOT lie down for 30minutes. acetaminophen 650 mg CR tablet Take 650 [...] Never Smokeless tobacco: Never Vaping Use Vaping status: Never Used Substance Use Topics Alcohol use: Not Currently Drug use: No BP 136/86 Pulse 81 Temp 37.2 ?C (98.9 ?F) (Temporal) Resp 14 Wt 56.3 kg (124 lb 1.9 oz) LMP 07/03/2005 SpO2 95% BMI 22.70 kg/m? Physical Exam Vitals reviewed. Constitutional: Appearance: Normal appearance. HENT: Mouth/Throat: Mouth: Mucous membranes are moist. Pharynx: Oropharynx is clear. Eyes: Conjunctiva/sclera: Conjunctivae normal. Cardiovascular: Rate and Rhythm: Normal rate and regular rhythm. Heart sounds: Normal heart sounds. No murmur (more content not included)... [facility] 01-21-2024 Telephone encounter Note Triage Protocol Recommended: PCP to advise/See provider within 4 hours. Patient agreeable to morning appt today with Moon Feliz CNP. Appt scheduled. Please call patient if provider has other recommendation. Reason for Disposition [1] Pain or burning with passing urine AND [2] side (flank) or back pain present Answer Assessment - Initial Assessment Questions Patient reports she has a little cramp in her pelvic area this morning at approx 6am. After urinating she noted blood mixed with her urine. 2nd episode this morning she urinated and there was some blood clots in toilet, no larger than dime sized. 3rd episode was about 20 min prior to this call, blood in urine continues with some pelvic pressure with urination Denies taking any blood thinners. Reports she feels fine otherwise. 1. COLOR of URINE: urine mixed with blood, blood clots at times 2. ONSET: 6am this morning 3. EPISODES: 3 episodes since 6am 4. PAIN with URINATION: little bit of pressure with urination 5. FEVER: denies 6. ASSOCIATED SYMPTOMS: -mild pelvic discomfort/pressure -reports has chronic lower back discomfort and it has not been worse than usual -no N/V or dizziness -no pain at time of call 7. OTHER SYMPTOMS: Lower back/flank pain, has history of lumbar bdomen pain, vomiting) pressure pelvis, no nausea, vomiting *No Answer* Protocols used: Urine - Blood In-ADULT- [facility] 01-21-2024 Miscellaneous Notes Triage Protocol Recommended: PCP to advise/See provider within 4 hours. Patient agreeable to morning appt today with Moon Feliz CNP. Appt scheduled. Please call patient if provider has other recommendation. Reason for Disposition [1] Pain or burning with passing urine AND [2] side (flank) or back pain present Answer Assessment - Initial Assessment Questions Patient reports she has a little cramp in her pelvic area this morning at approx 6am. After urinating she noted blood mixed with her urine. 2nd episode this morning she urinated and there was some blood clots in toilet, no larger than dime sized. 3rd episode was about 20 min prior to this call, blood in urine continues with some pelvic pressure with urination Denies taking any blood thinners. Reports she feels fine otherwise. 1. COLOR of URINE: urine mixed with blood, blood clots at times 2. ONSET: 6am this morning 3. EPISODES: 3 episodes since 6am 4. PAIN with URINATION: little bit of pressure with urination 5. FEVER: denies 6. ASSOCIATED SYMPTOMS: -mild pelvic discomfort/pressure -reports has chronic lower back discomfort and it has not been worse than usual -no N/V or dizziness -no pain at time of call 7. OTHER SYMPTOMS: Lower back/flank pain, has history of lumbar bdomen pain, vomiting) pressure pelvis, no nausea, vomiting *No Answer* Protocols used: Urine - Blood In-ADULT-AH documented in this encounter [facility] 01-09-2024 Note HNO ID: [id number] Author: DEREK IGLESIAS MA Service: ? Author Type: Entry Level Electrical Engineer Type: Progress Notes Filed: 01/09/2024 08:31 Note Text: POPULATION HEALTH NAVIGATION OUTREACH Action/January 09, 2024 2nd attempt - spoke with pt who declines scheduling ED follow up appt at this time. Pt will keep appt on 03/04/24 for follow up. ACM Cecily appt needed: Emergency Department Utilization Discharged from [facility] 12/30/23 Seen for: Differential diagnosis includes however is not limited to: Dental abscess, irreversible pulpitis, Ludwigs angina Reason for Outreach Community Monitoring/Network Navigator Pools AND Phone Line: ACM Patient Contacted: Spoke to patient/parent/or legal guardian Patient identified by name and : Yes Community Monitoring/Network Navigator Pools AND Phone Line actions taken: Patient declined: Patient Declines Navigation Scheduling / Outreach Navigation Signature: Derek Iglesias MA January 09, 2024 8:10 AM [facility] 01-07-2024 Note HNO ID: [id number] Author: DEREK IGLESIAS MA Service: ? Author Type: Entry Level Electrical Engineer Type: Progress Notes Filed: 01/07/2024 10:43 Note Text: POPULATION HEALTH NAVIGATION OUTREACH Action/January 07, 2024 1st attempt - Voicemail message left and Mychart message sent offering to assist in scheduling ED follow up appt. Postponing 2 days. ACM Cecily appt needed: Emergency Department Utilization Discharged from [place] ED 12/30/23 Seen for: Differential diagnosis includes however is not limited to: Dental abscess, irreversible pulpitis, Ludwigs angina Reason for Outreach Community Monitoring/Network Navigator Pools AND Phone Line: ACM Patient Contacted: Unable or unnecessary to reach patient: Left message MyChart message sent Navigation Signature: Derek Iglesias MA January 07, 2024 10:21 AM [facility] 01-07-2024 History of Presen t illness Narrative POPULATION HEALTH NAVIGATION OUTREACH Action/January 07, 2024 1st attempt - Voicemail message left and Mychart message sent offering to assist in scheduling ED follow up appt. Postponing 2 days. ACM Cecily appt needed: Emergency Department Utilization Discharged from [place] ED 12/30/23 Seen for: Differential diagnosis includes however is not limited to: Dental abscess, irreversible pulpitis, Ludwigs angina Reason for Outreach Community Monitoring/Network Navigator Pools & Phone Line: ACM Patient Contacted: Unable or unnecessary to reach patient: Left message MyChart message sent Navigation Signature: Derek Iglesias MA January 07, 2024 10:21 AM Summary: ED utilization review per request of payer ACM CECILY RN Patient identified by name and date of . Reason for review or outreach: Chart Review Cecily Priority Emergency Department Utilization REQUESTED ACTION/FYI: Please see ED Utilization summary below: A follow-up appointment is noted 03/04/24 in patient's record. We are forwarding this patient to Network Navigation to schedule a [facility] [place] 12/30/23 PCP follow-up appointment. Thank you Exclusion Criteria Does not meet exclusion criteria Utilization in past 6 months: # Occurrences Date Last Occurrence Hospital Admission 1 08/31/23 Hospital Observation 0 N/A ED 3-OON 12/30/23 SNF / Acute Rehab / LTAC 0 N/A ED DIAGNOSES/REASON(S) FOR ED USE: [place] ED 12/30/23 Differential diagnosis includes however is not limited to: Dental abscess, irreversible pulpitis,pj wigs angina OTHER FINDINGS/SUMMARY: Patient is a 73-year-old female with history of right lower jaw swelling, right sided tooth pain. Patient states she has had pain for the last week, worsening swelling the last 2 days. She did go to urgent care yesterday, she was placed on amoxicillin. Patient states that the swelling got worse today, the pain is getting worse, she is here for evaluation. She does see [facility] however they will not take her until the swelling goes down. Patient appears to be in no obvious distress, vital signs are stable, presentingto the emergency department for dental infection. Patient does have swelling tothe right lower jaw, multiple broken teeth, dental caries. There is no fluctuance. There is no signs or symptoms of deep tissue infection. Patient will be switched antibiotics, patient replaced on clindamycin as well as a shortcourse of pain medicine. She will continue following up with her [facility]. She is instructed return for any worsening symptoms. Stable for discharge Patient Attributed To: QAE Payer: Lulu COLIN Action Taken: Referrals/Routed: Population Health Navigation: Appointment. Router to [facility] [[id number]] Contact made with patient: No, Chart review only. Signature: Farideh RICO,RN,[facility] Staple Cutter Management Contract RN [phone] documented in this encounter [facility] 01-07-2024 Note HNO ID: [id number] Author: FARIDEH FLORES RN Service: ? Author Type: Registered Nurse Type: Progress Notes Filed: 01/07/2024 09:58 Note Text: Summary: ED utilization review per request of payer ACM CECILY RN Patient identified by name and date of . Reason for review or outreach: Chart Review Cecily Priority Emergency Department Utilization REQUESTED ACTION/FYI: Please see ED Utilization summary below: A follow-up appointment is noted 03/04/24 in patient's record. We are forwarding this patient to Network Navigation to schedule a [facility] [place] 12/30/23 PCP follow-up appointment. Thank you Exclusion Criteria Does not meet exclusion criteria Utilization in past 6 months: # Occurrences Date Last Occurrence Hospital Admission 1 08/31/23 Hospital Observation 0 N/A ED 3-OON 12/30/23 SNF / Acute Rehab / LTAC 0 N/A ED DIAGNOSES/REASON(S) FOR ED USE: [place] ED 12/30/23 Differential diagnosis includes however is not limited to: Dental abscess, irreversible pulpitis,pj wigs angina OTHER FINDINGS/SUMMARY: Patient is a 73-year-old female with history of right lower jaw swelling, right sided tooth pain. Patient states she has had pain for the last week, worsening swelling the last 2 days. She did go to urgent care yesterday, she was placed on amoxicillin. Patient states that the swelling got worse today, the pain is getting worse, she is here for evaluation. She does see [facility] however they will not take her until the swelling goes down. Patient appears to be in no obvious distress, vital signs are stable, presentingto the emergency department for dental infection. Patient does have swelling tothe right lower jaw, multiple broken teeth, dental caries. There is no fluctuance. There is no signs or symptoms of deep tissue infection. Patient will be switched antibiotics, patient replaced on clindamycin as well as a shortcourse of pain medicine. She will continue following up with her [facility]. She is instructed return for any worsening symptoms. Stable for discharge Patient Attributed To: QAE Payer: Lulu COLIN Action Taken: Referrals/Routed: Population Health Navigation: Appointment. Router to [facility] [[id number]] Contact made with patient: No, Chart review only. Signature: Farideh Flores MSN,RN,[facility] Staple Cutter Management Contract RN [phone] [facility] 01-07-2024 Note Patient Outreach (AM [facility] RENATE INFANTE I ([id number]) 1950 F Date Time Provider Department 01/07/24 FARIDEH FLORES [facility] During your visit today, we recorded the following information about you: Farideh Flores RN 01/07/2024 9:58 AM Signed ACM CECILY RN Patient identified by name and date of . Reason for review or outreach: Chart Review Cecily Priority Emergency Department Utilization REQUESTED ACTION/FYI: Please see ED Utilization summary below: A follow-up appointment is noted 03/04/24 in patient's record. We are forwarding this patient to Network Navigation to schedule a [facility] [place] 12/30/23 PCP follow-up appointment. Thank you Exclusion Criteria Does not meet exclusion criteria Utilization in past 6 months: # Occurrences Date Last Occurrence Hospital Admission 1 08/31/23 Hospital Observation 0 N/A ED 3-OON 12/30/23 SNF / Acute Rehab / LTAC 0 N/A ED DIAGNOSES/REASON(S) FOR ED USE: [place] ED 12/30/23 Differential diagnosis includes however is not limited to: Dental abscess, irreversible pulpitis,pj wigs angina OTHER FINDINGS/SUMMARY: Patient is a 73-year-old female with history of right lower jaw swelling, right sided tooth pain. Patient states she has had pain for the last week, worsening swelling the last 2 days. She did go to urgent care yesterday, she was placed on amoxicillin. Patient states that the swelling got worse today, the pain is getting worse, she is here for evaluation. She does see [facility] however they will not take her until the swelling goes down. Patient appears to be in no obvious distress, vital signs are stable, presentingto the emergency department for dental infection. Patient does have swelling tothe right lower jaw, multiple broken teeth, dental caries. There is no fluctuance. There is no signs or symptoms of deep tissue infection. Patient will be switched antibiotics, patient replaced on clindamycin as well as a shortcourse of pain medicine. She will continue following up with her [facility]. She is instructed return for any worsening symptoms. Stable for discharge Patient Attributed To: CAROLINEE Payer: Lulu COLIN Action Taken: Referrals/Routed: Population Health Navigation: Appointment. Router to COMMUNITY MONITORING PSS POOL [[id number]] Contact made with patient: No, Chart review only. Signature: Farideh RICO,RN,[facility] [employer] Contract RN [phone] Derek Iglesias MA 01/07/2024 10:43 AM Signed POPULATION HEALTH NAVIGATION OUTREACH Action/January 07, 2024 1st attempt - Voicemail message left and Mychart message sent offering to assist in scheduling ED follow up appt. Postponing [address] [facility] Cecily appt needed: Emergency Department Utilization Discharged from [place] ED 12/30/23 Seen for: Differential diagnosis includes however is not limited to: Dental abscess, irreversible pulpitis, Ludwigs angina Reason for Outreach Community Monitoring/Network Navigator Pools AND Phone Line: [facility] Patient Contacted: Unable or unnecessary to reach patient: Left message MyChart message sent Navigation Signature: Derek Iglesias MA January 07, 2024 10:21 AM Derek Iglesias MA 01/09/2024 8:31 AM Signed POPULATION HEALTH NAVIGATION OUTREACH Action/January 09, 2024 2nd attempt - spoke with pt who declines scheduling ED follow up appt at this time. Pt will keep appt on 03/04/24 for follow up. [facility] Cecily appt needed: Emergency Department Utilization Discharged from [place] ED 12/30/23 Seen for: Differential diagnosis includes however is not limited to: Dental abscess, irreversible pulpitis, Ludwigs angina Reason for Outreach Community Monitoring/Network Navigator Pools AND Phone Line: [facility] Patient Contacted: Spoke to patient/parent/or legal guardian Patient identified by name and : Yes Community Monitoring/Network Navigator Pools AND Phone Line actions taken: Patient declined: Patient Declines Navigation Scheduling / Outreach Navigation Signature: Derek Iglesias MA January 09, 2024 8:10 AM Allergies As of Date: 01/07/2024 Noted Allergy Reaction MELOXICAM 10/21/2012 14 - Other: See Comments Comments: muscle tremors/spasms SEPTRA (SULFAMETHOXAZOLE-TRIMETHO*06/04 4 - Hives Date Reviewed: 12/29/2023 Reviewed by: Purvi Lofton MA - Fully Assessed Reason for Visit: ACM CECILY RN [[id number]] Cmt: ED utilization review per request of payer Prescriptions as of 01/09/2024 - naproxen sodium (ALEVE ORAL) Take by mouth. - IBUPROFEN ORAL Take by mouth. - predniSONE (DELTASONE) 10 mg tablet TAKE BY MOUTH 4 TABLETS DAILY FOR 2 DAYS, THEN 3 TABLETS DAILY FOR 2 DAYS, THEN 2 TABLETS DAILY FOR 2 DAYS, THEN 1 TABLET DAILY FOR 2 DAYS. - alendronate (FOSAMAX) 70 mg tablet Take 1 tablet by mouth one time a week. Take with a (more content not included)... [facility] 12-29-2023 Note HNO ID: [id number] Author: AGUS GARCIA APRN.[facility] Service: ? Author Type: Nurse Practitioner Type: Progress Notes Filed: 12/29/2023 10:15 Note Text: Subjective Patient came in with complaints of right lower tooth pain. Patient says she has significant trouble with most of her teeth. Patient says this is not the first tooth infection she has had. Patient has called the dentist but they are 2 weeks out. Patient denies fever chills nausea vomiting. Dental Problem Review of Systems Constitutional: Negative. Skin: Negative. Objective Physical Exam Constitutional: Appearance: Normal appearance. HENT: Mouth/Throat: Comments: Patient has significant dental caries throughout. Area marked above is where she is having pain and there is a tooth with 7/8 of it missing. No signs of dental abscess swelling or drainage. Pulmonary: Effort: Pulmonary effort is normal. Neurological: Mental Status: She is alert. PAST MEDICAL HISTORY Diagnosis Date Acute gastritis without mention of hemorrhage Age-related osteoporosis without current pathological fracture 08/11/2022 Allergic rhinitis, cause unspecified Anemia, unspecified 11/21/2005 Arthritis Benign neoplasm of colon Carpal tunnel syndrome [...] SPX 04/16/1987 Arthroscopy, knee, Dr. Griggs COLONOSCOPY 12/28/2022 repeat in 10 years COLONOSCOPY FLX DX W/COLLJ SPEC WHEN PFRMD 05/17/2003 Colonoscopy, Dr. Disla COLONOSCOPY FLX DX W/COLLJ SPEC WHEN PFRMD 05/23/2013 Colonoscopy COLSC FLX W/RMVL OF TUMOR POLYP LESION SNARE TQ 11/22/2007 EGD TRANSORAL BIOPSY SINGLE/MULTIPLE 05/10/2007 ESOPHAGOGASTRODUODENOSCOPY TRANSORAL DIAGNOSTIC 09/14/1994 EGD INCISE FINGER TENDON SHEATH Right 08/31/2023 Right middle trigger finger release LAMINECTOMY W/O FFD 1/2 VERT SEG LUMBAR [...] W/REMOVAL TUBES/OV 04/16/2012 ALLERGIES Meloxicam and Septra [Sulfamethoxazole-Trimethoprim] MEDICATIONS naproxen sodium (ALEVE ORAL) Take by mouth. IBUPROFEN ORAL Take by mouth. alendronate (FOSAMAX) 70 mg tablet Take 1 tablet by mouth one time a week. Take with a full glass of water, on an empty stomach; do NOT lie down for 30minutes. acetaminophen 650 mg CR tablet Take 650 mg by mouth every 8 hours as needed. amoxicillin (AMOXIL) 875 mg tablet Take 1 tablet by mouth two times a day for 7 days. predniSONE (DELTASONE) 10 mg tablet TAKE BY MOUTH 4 TABLETS DAILY FOR 2 DAYS, THEN 3 TABLETS DAILY FOR 2 DAYS, THEN 2 TABLETS DAILY FOR 2 DAYS, THEN 1 TABLET DAILY FOR 2 DAYS. (Patient not taking: Reported on 08/27/2023) FAMILY HISTORY Problem Relation Age of Onset Hypertension Mother Diabetes Mother Heart Mother Congestive Heart Failure Cataract Mother COPD Father of COPD Coronary Artery Disease Father Heart Father Cataract Sister Cataract Brother Cataract Brother Asthma Brother 2 brothers Cancer Brother metastatic, etiol? Social History Tobacco Use Smoking status: Never Smokeless tobacco: Never Vaping Use Vaping status: Never Used Substance Use Topics Alcohol use: Not Currently Drug use: No ASSESSMENT/PLAN: 1. Pain, dental - ICD9: 525.9, ICD10: K08.89 - AMOXICILLIN 875 MG TABLET Patient was educated about proper use of medication supportive therapies. Patient was educated about red flag symptoms to watch for. Patient is maylin follow-up with her dentist. Patient was okay with this care plan. Agus Garcia APRN.[facility] 12-29-2023 History of Presen t illness Narrative Images from the original note were not included. Subjective Patient came in with complaints of right lower tooth pain. Patient says she has significant trouble with most of her teeth. Patient says this is not the first tooth infection she has had. Patient has called the dentist but they are 2 weeks out. Patient denies fever chills nausea vomiting. Dental Problem Review of Systems Constitutional: Negative. Skin: Negative. Objective Physical Exam Constitutional: Appearance: Normal appearance. HENT: Mouth/Throat: Comments: Patient has significant dental caries throughout. Area marked above is where she is having pain and there is a tooth with 7/8 of it missing. No signs of dental abscess swelling or drainage. Pulmonary: Effort: Pulmonary effort is normal. Neurological: Mental Status: She is alert. PAST MEDICAL HISTORY Diagnosis Date Acute gastritis without mention of hemorrhage Age-related osteoporosis without current pathological fracture 08/11/2022 Allergic rhinitis, cause unspecified Anemia, unspecified 11/21/2005 Arthritis Benign neoplasm of colon Carpal tunnel syndrome [...] SPX 04/16/1987 Arthroscopy, knee, Dr. Griggs COLONOSCOPY 12/28/2022 repeat in 10 years COLONOSCOPY FLX DX W/COLLJ SPEC WHEN PFRMD 05/17/2003 Colonoscopy, Dr. Disla COLONOSCOPY FLX DX W/COLLJ SPEC WHEN PFRMD 05/23/2013 Colonoscopy COLSC FLX W/RMVL OF TUMOR POLYP LESION SNARE TQ 11/22/2007 EGD TRANSORAL BIOPSY SINGLE/MULTIPLE 05/10/2007 ESOPHAGOGASTRODUODENOSCOPY TRANSORAL DIAGNOSTIC 09/14/1994 EGD INCISE FINGER TENDON SHEATH Right 08/31/2023 Right middle trigger finger release LAMINECTOMY W/O FFD 1/2 VERT SEG LUMBAR [...] 1960s Tonsillectomy VAGINAL HYSTERECTOMY W/REMOVAL TUBES/OV 04/16/2012 ALLERGIES Meloxicam and Septra [Sulfamethoxazole-Trimethoprim] MEDICATIONS naproxen sodium (ALEVE ORAL) Take by mouth. IBUPROFEN ORAL Take by mouth. alendronate (FOSAMAX) 70 mg tablet Take 1 tablet by mouth one time a week. Take with a full glass of water, on an empty stomach; do NOT lie down for 30minutes. acetaminophen 650 mg CR tablet Take 650 mg by mouth every 8 hours as needed. amoxicillin (AMOXIL) 875 mg tablet Take 1 tablet by mouth two times a day for 7 days. predniSONE (DELTASONE) 10 mg tablet TAKE BY MOUTH 4 TABLETS DAILY FOR 2 DAYS, THEN 3 TABLETS DAILY FOR 2 DAYS, THEN 2 TABLETS DAILY FOR 2 DAYS, THEN 1 TABLET DAILY FOR 2 DAYS. (Patient not taking: Reported on 08/27/2023) FAMILY HISTORY Problem Relation Age of Onset Hypertension Mother Diabetes Mother Heart Mother Congestive Heart Failure Cataract Mother COPD Father of COPD Coronary Artery Disease Father Heart Father Cataract Sister Cataract Brother Cataract Brother Asthma Brother 2 brothers Cancer Brother metastatic, etiol? Social History Tobacco Use Smoking status: Never Smokeless tobacco: Never Vaping Use Vaping status: Never Used Substance Use Topics Alcohol use: Not Currently Drug use: No ASSESSMENT/PLAN: 1. Pain, dental - ICD9: 525.9, ICD10: K08.89 - AMOXICILLIN 875 MG TABLET Patient was educated about proper use of medication supportive therapies. Patient was educated about red flag symptoms to watch for. Patient is maylin follow-up with her dentist. Patient was okay with this care plan. Agus Garcia APRN.[facility] documented in this encounter [facility] 10-24-2023 History of Presen t illness Narrative Pt is going to call back once she checks dates and times with her grandson. POPULATION HEALTH NAVIGATION OUTREACH Action/FYI Medicare Wellness - please schedule this month with Moon Reason for Outreach Care Gap/HCC or Scheduling Wellness Visits Care Gaps due: Medicare Annual Wellness Visit Patient Contacted: Unable or unnecessary to reach patient: Left message Navigation Signature: Marlon Brooks MA October 24, 2023 8:51 AM documented in this encounter [facility] 10-09-2023 Telephone encounter Note Patient reports she fell last night onto cement, after tripping. Landed on right side and having severe pain in right ribs and right upper back. Reports it's hard for her to breath. Reports she took aleve and pain is still severe. States she has to see someone right now, cannot wait for an appt. Advised for severe pain she should be seen in ER. Patient agreeable. States she will go to ER now. [facility] 10-09-2023 Miscellaneous Notes Patient reports she fell last night onto cement, after tripping. Landed on right side and having severe pain in right ribs and right upper back. Reports it's hard for her to breath. Reports she took aleve and pain is still severe. States she has to see someone right now, cannot wait for an appt. Advised for severe pain she should be seen in ER. Patient agreeable. States she will go to ER now. documented in this encounter [facility] 10-08-2023 History of Presen t illness Narrative Pj Ryan MD Department of Orthopaedics Orthopaedics [address] [facility] [address] Dept: [phone] Dept October 08, 2023 CHIEF COMPLAINT: Post Op of the Right Middle Finger and 5 weeks 3 days post op Right middle trigger finger release. HPI Patient here for post op right middle finger. Denies any pain. Still has some stiffness in her finger. She is able to make a complete fist. ASSESSMENT: M65.331 Trigger middle finger of right hand (primary encounter diagnosis) SUMMARY/PLAN: She's doing great all considering. Minor stiffness, expected with as severe of a trigger she had. Activities as tolerated. Exam: Healed incision. Mild and appropriate stiffness at the PIP Supporting Information Below: Medications: Current Outpatient Medications Medication Sig naproxen sodium (ALEVE ORAL) Take by mouth. IBUPROFEN ORAL Take by mouth. alendronate (FOSAMAX) 70 mg tablet Take 1 tablet by mouth one time a week. Take with a full glass of water, on an empty stomach; do NOT lie down for 30minutes. acetaminophen 650 mg CR tablet Take 650 mg by mouth every 8 hours as needed. predniSONE (DELTASONE) 10 mg tablet TAKE BY MOUTH 4 TABLETS DAILY FOR 2 DAYS, THEN 3 TABLETS DAILY FOR 2 DAYS, THEN 2 TABLETS DAILY FOR 2 DAYS, THEN 1 TABLET DAILY FOR 2 DAYS. (Patient not taking: Reported on 08/27/2023) No current facility-administered medications for this visit. Allergies: Meloxicam and Septra [Sulfamethoxazole-Trimethoprim] Pj Ryan MD documented in this encounter [facility] 09-11-2023 History of Presen t illness Narrative Lizz Bo PA-C Department of Orthopaedics Orthopaedics [address] [place] [address] Dept: [phone] September 11, 2023 CHIEF COMPLAINT: Post Op and Pain of the Right Middle Finger. ASSESSMENT: M65.331 Trigger middle finger of right hand (primary encounter diagnosis) T81.41XA Postoperative stitch abscess SUMMARY/PLAN: Patient presents 11 days status post right middle trigger finger release. About 4 days ago, she sent a MyChart message, she had some increased redness and pain. We did send her in an oral antibiotic. She reports that she had some drainage coming from the hand. She is only been on the antibiotic for about 3 days. Continue with the oral antibiotic, will provide her with a small refill of the pain medication. We discussed some daily soapy water soaks, ice and elevation. I would like her to call or message me at the completion of the antibiotics let me know how she is doing. Patient agrees to plan. Exam: Incision site is erythematous and moderately edematous. There is no active drainage. Hand is not hot to the touch, no streaking. Patient is able to form a loose composite fist extend the digit without any locking or catching. Imaging: Deferred today Ms. Renate Infante was advised as to contrast therapies and/or to take analgesics/anti-inflammatories as needed and all contraindications were reviewed. Supporting Information Below: Medications: Current Outpatient Medications Medication Sig cephALEXin (KEFLEX) 250 mg capsule Take 1 capsule by mouth four times daily for 5 days. naproxen sodium (ALEVE ORAL) Take by mouth. IBUPROFEN ORAL Take by mouth. alendronate (FOSAMAX) 70 mg tablet Take 1 tablet by mouth one time a week. Take with a full glass of water, on an empty stomach; do NOT lie down for 30minutes. acetaminophen 650 mg CR tablet Take 650 mg by mouth every 8 hours as needed. HYDROcodone-acetaminophen (NORCO) 5-325 mg per tablet Take 1 tablet by mouth every 6 hours as needed for pain for up to 7 days. predniSONE (DELTASONE) 10 mg tablet TAKE BY MOUTH 4 TABLETS DAILY FOR 2 DAYS, THEN 3 TABLETS DAILY FOR 2 DAYS, THEN 2 TABLETS DAILY FOR 2 DAYS, THEN 1 TABLET DAILY FOR 2 DAYS. (Patient not taking: Reported on 08/27/2023) No current facility-administered medications for this visit. Allergies: Meloxicam and Septra [Sulfamethoxazole-Trimethoprim] This note was partially generated using [employer] voice recognition system, and there may be some incorrect words, spellings, and punctuation that were not noted in checking the note before saving. Lizz Bo PA-C documented in this encounter [facility] 09-07-2023 Telephone encounter Note Message sent to patient in Mychart encounter. [facility] 09-07-2023 Miscellaneous Notes Message sent to patient in [employer] encounter. Patient did send in a [employer] message with photo. Patient is 6 days s/p R middle finger trigger release. Patient contacts office and is concerned that operative site is infected. She reports redness, soreness and a hard feeling to area of sutures. Denies drainage.Explained to patient that due to placement of sutures and the fact that they tend to be tight in that area that this is not uncommon. Patient verbalized understanding. She will try to upload a picture to [employer] as well. Explained to patient this nurse would send a note to Dr. Ryan/Lizz to confirm advice given. documented in this encounter [facility] 09-07-2023 Telephone encounter Note Patient did send in a [employer] message with photo. [facility] 09-07-2023 Telephone encounter Note Patient is 6 days s/p R middle finger trigger release. Patient contacts office and is concerned that operative site is infected. She reports redness, soreness and a hard feeling to area of sutures. Denies drainage.Explained to patient that due to placement of sutures and the fact that they tend to be tight in that area that this is not uncommon. Patient verbalized understanding. She will try to upload a picture to [employer] as well. Explained to patient this nurse would send a note to Dr. Ryan/Lizz to confirm advice given. [facility] 08-27-2023 Telephone encounter Note Post op appointments have been coordinated to the [facility] date. Surgery has been scheduled as requested on 08/31/2023. [facility] 08-27-2023 Miscellaneous Notes Post op appointments have been coordinated to the new date. Surgery has been scheduled as requested on 08/31/2023. Patient called back. She is concerned about being away from home for so long since she cares foe handicapped grandchild. She is going to change the surgery to local and move it to 08/31/2023. I called and left a message for the patient to contact the office. Pt calling to change surgery to here at [facility] under local. 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 Pt asking that research scientist call her to reschedule. Lora Swan MA Surgery has been scheduled as requested. Surgical request completed for right middle trigger finger release at [facility] on 08/29/2023. Post op appointments have been scheduled and mailed to the patient. documented in this encounter [facility] 08-27-2023 Telephone encounter Note Patient called back. She is concerned about being away from home for so long since she cares foe handicapped grandchild. She is going to change the surgery to local and move it to 08/31/2023. [facility] 08-27-2023 Telephone encounter Note I called and left a message for the patient to contact the office. [facility] 08-27-2023 Telephone encounter Note Pt calling to change surgery to here at [facility] under local. 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 Pt asking that research scientist call her to reschedule. Lora Swan MA [facility] 08-27-2023 Telephone encounter Note Surgery has been scheduled as requested. [facility] 08-27-2023 Telephone encounter Note Surgical request completed for right middle trigger finger release at [facility] on 08/29/2023. Post op appointments have been scheduled and mailed to the patient. [facility] 08-27-2023 History of Presen t illness Narrative Pj Ryan MD Department of Orthopaedics Orthopaedics [address] [facility] [address] Dept: [phone] Dept August 27, 2023 CHIEF COMPLAINT: New and Trigger Finger of the Right Hand HPI Patient here today for right middle trigger finger. It is now in a locked position and she is not able to open it. Right hand dominant. Retired. ASSESSMENT: M65.331 Trigger middle finger of right hand PLAN: She has a completely locked trigger finger. We discussed lidocaine injection today and splinting, however I think we can get her scheduled for this week for simple surgical release. Thus, we will hold off on any injection. The risks, benefits, alternatives and potential complications were reviewed. She understands and wishes to pursue surgery to correct her locked trigger finger. Stiffness will certainly be an issue afterwards and she is aware. FOLLOW UP INSTRUCTIONS: As above Ms. Renate Infante was advised as to contrast therapies and/or to take analgesics/anti-inflammatories as needed and all contraindications were reviewed. OBJECTIVE: Ms. Renate Infante is a pleasant 72 year old in no apparent distress. Gen:LMP 07/03/2005 nl development, non obese, no deformities ENT: Normocephalic, normal hearing, moist mucosa CV: Pulses:Radial= 2+ and symmetric, capillary refill < 2 secs, no peripheral edema/varicosities Skin: no rash, bruising or lesions. Good turgor. Psych: cooperative and appropriate, alert and oriented x 3, good mood and affect. Musculoskeletal: Left middle finger on the right hand. I am not able to extend her today. There are no skin issues at this time. IMAGING: Deferred today Supporting Subjective Information Below: Past Medical History: PAST MEDICAL HISTORY Diagnosis Date Acute gastritis without mention of hemorrhage Age-related osteoporosis without current pathological fracture 08/11/2022 Allergic rhinitis, cause unspecified Anemia, unspecified 11/21/2005 Arthritis Benign neoplasm of colon Carpal tunnel syndrome 03/05/2006 Cervicalgia 1998 Clostridium difficile diarrhea 08/14/2014 Diarrhea Diarrhea Headache(784.0) 11/21/2005 Internal hemorrhoids without mention of complication Irritable bowel syndrome 11/21/2005 Lumbago 07/16/2006 narcotic contract signed,scanned in and in paper chart 07/28/09. Migraine without aura, without mention of intractable migraine without mention of status migrainosus Pain in joint, lower leg 03/05/2006 Past Surgical History: PAST SURGICAL HISTORY Procedure Laterality Date APPENDECTOMY ARTHROSCOPY KNEE DIAGNOSTIC W/WO SYNOVIAL BX SPX 04/16/1987 Arthroscopy, knee, Dr. Griggs COLONOSCOPY 12/28/2022 repeat in 10 years COLONOSCOPY FLX DX W/COLLJ SPEC WHEN PFRMD [...] 1960s Tonsillectomy VAGINAL HYSTERECTOMY W/REMOVAL TUBES/OV 04/16/2012 Family History: FAMILY HISTORY Problem Relation Age of Onset Hypertension Mother Diabetes Mother Heart Mother Congestive Heart Failure Cataract Mother COPD Father of COPD Coronary Artery Disease Father Heart Father Cataract Sister Cataract Brother Cataract Brother Asthma Brother 2 brothers Cancer Brother metastatic, etiol? Social History: Social History Tobacco Use Smoking status: Never Smokeless tobacco: Never Vaping Use Vaping Use: Never used Substance Use Topics Alcohol use: Not Currently Drug use: No Medications: Current Outpatient Medications Medication Sig naproxen sodium (ALEVE ORAL) Take by mouth. alendronate (FOSAMAX) 70 mg tablet Take 1 tablet by mouth one time a week. Take with a full glass of water, on an empty stomach; do NOT lie down for 30minutes. IBUPROFEN ORAL Take by mouth. predniSONE (DELTASONE) 10 mg tablet TAKE BY MOUTH 4 TABLETS DAILY FOR 2 DAYS, THEN 3 TABLETS DAILY FOR 2 DAYS, THEN 2 TABLETS DAILY FOR 2 DAYS, THEN 1 TABLET DAILY FOR 2 DAYS. (Patient not taking: Reported on 08/27/2023) acetaminophen 650 mg CR tablet Take 650 mg by mouth every 8 hours as needed. No current facility-administered medications for this visit. Allergies: Meloxicam and Septra [Sulfamethoxazole-Trimethoprim] ROS: General (negative for fatigue, malaise, weight loss/gain) HEENT (negative for headache, earache, recent vision changes, sinus pain, sore throat) Respiratory (no recent shortness of breath, hemoptysis) CV (negative for chest tightness, palpitations) Musculoskeletal (see HPI) Psych (no depression, anxiety) REFERRING PHYSICIAN: Consultation requested by Dr. Luong for an opinion regarding locked finger. My final recommendations will be communicated back to the requesting physician by way of shared Medical record or letter to requesting physician via US mail. Frederic Luong [address] [facility] [address] Frederic Luong MD [address] [facility] [address] Pj Ryan MD documented in this encounter [facility] 07-01-2023 History of Presen t illness Narrative Nontoxic-appearing female presents urgent care chief complaint right knee pain. Duration of symptoms 4 days. Associated right knee pain swelling and discomfort. Patient states having hard time walking. Does have a history of arthritis this feels different. Has been feeling fevers for the last day. Presents today for evaluation. On examination patient did have a moderately swollen knee. Mild erythema noted. Temp of 100.4. Presenting symptoms unable to obtain x-ray or labs today recommend patient be seen ED for further evaluation care. Will be seen at [facility]. Verbalized understand agrees with plan of care. Riaz Flores APRN.SHOAIB documented in this encounter [facility] 06-04-2023 History of Presen t illness Narrative This note was created using NoteWriter. Subjective Patient presents with: Right hand pain Immunizations: Flu vaccination Renate Infante is a 72 year old female. She's [...] tolerated - ALENDRONATE 70 MG TABLET Frederic Luong MD documented in this encounter [facility] 04-13-2023 Discharge summary Note Date/Time April 13, 2023 6:48pm [facility] Medical Records Department [address] [place] [id number] Emergency Department Summary 04/13/23 MR#: [id number] Acct: [id number] Name: RENATE IFNANTE Rep #:[id number] 5 : 1950 72 From: Pj Avendano MD PCP: Dr. Frederic Luong MD Status:R EG ER Location: ED HPI History of Present Illness Chief Complaint: Dental Informant: patient Narrative Narrative: Patient had all of her teeth extracted this morning and has not been able to control bleeding from at least one of the areas. She is on no antiplatelet or anticoagulant medications. She has no systemic symptoms of lightheadedness or anemia. PFSH PFSH Home Medications ketorolac 0.5 % eye drops 1 drp LEFT EYE Q6H 08/12/21 [History Last Taken Unknown] ofloxacin 0.3 % eye drops 1 drp LEFT EYE Q6H 08/12/21 [History Last Taken Unknown] cyclobenzaprine 10 mg tablet 10 mg PO TID PRN Muscle Spasm #20 TABLETS 07/15/22 [Rx Last Taken Unknown] ibuprofen 600 mg tablet 600 mg PO Q8H PRN pain #30 TABLETS 07/15/22 [Rx Last Taken Unknown] Allergy/AdvReac Type Severity Reaction Status Date / Time sulfamethoxazole Allergy Rash Verified 04/13/23 17:46 [From ] trimethoprim [From ] Allergy Rash Verified 04/13/23 17:46 meloxicam AdvReac Other Verified 04/13/23 17:46 Social History household members: none Smoking Status: Never smoker substance use type: does not use ROS ROS ED Constitutional Constitutional ED: Denies chills or fever(s) Eyes Eyes: Denies change in vision or double vision ENT ENT ED: Reports dental pain and other Details: Postoperative dental bleeding seeHPI ; Denies sinus pain or throat swelling Cardiovascular Cardiovascular: Denies chest pain or palpitations Respiratory/Chest Respiratory/Chest: Denies cough or dyspnea Integumentary Denies abscess or rash Neurologic Neurologic: Denies headache(s), paresthesias or weakness EXAM Physical Exam Const Vital Signs: 04/13/23 17:47 Temperature 98.2 F Temperature Source Temporal Pulse Rate 78 Respiratory Rate 14 Blood Pressure 157/63 H Blood Pressure Mean 94 Pulse Ox 100 Oxygen Delivery Method Room Air Positive well nourished and well developed General Appearance ED: well developed and NAD HEENT HEENT Narrative: Post operative gingival changes noted, no signs of infection or acute tenderness. There is dark blood actively oozing from site at tooth #14 or 15. No active bleeding from anywhere else. No trismus. Tongue and oral mucosa are normal. Airway patent no stridor or difficulty handling secretions. Face and Sinus: sinuses nontender Throat: posterior oropharynx normal Eyes PERRL and EOMs intact bilaterally Neck no lymphadenopathy and supple Resp normal respiratory effort Neuro oriented x3 and CN's II-XII intact bilaterally Sensorium / Orientation: alert Gait (Neuro): normal gait Psych mental status grossly normal and thought process normal Skin no rashes or lesions noted and no wounds MDM MDM MDM Narrative Medical decision making narrative: On further inspection patient is bleeding from one particular area and it appears to be arteriolar. This is in the left maxillary gingiva. I placed a bulk of gauze soaked in let, along with a piece of Surgifoam against the gingivaand had the patient bite down to apply pressure. This did not stop the bleeding. This was reattempted with a fresh piece of Surgifoam, there was a lotof clot there, but as soon as I touched the gingiva/Surgifoam, the bleeding restarted and at that point I had her rinse everything, temporarily placed a pledget against the area and bite down until it was able to get some lidocaine with epinephrine, 2%. I injected 0.5 cc total in and around this area. I then placed a fresh piece of Surgifoam and a bulk of gauze against this and had a bite down. On reexamination good hemostasis is obtained and the area is totallyclean of any loose blood or clot even without the Surgif[place]am in place. At this time she is stable hemodynamically and clinically, and comfortable going home. Given the rest of the discharge home with instructions for use if needed and we discussed reasons to return here. She is comfortable with that plan. Procedures Other Procedures Procedure(s): Hemostasis -- see above Discharge Plan Triage Chief Complaint: Dental ED Provider: Pj Avendano Dx/Rx/DC Orders Clinical Impression: Postoperative bleeding from mouth Instructions: ED Post Op Wound Check, Bleeding Prescriptions: No Action ofloxacin 0.3 % drops 1 drp LEFT EYE Q6H ketorolac 0.5 % drops 1 drp LEFT EYE Q6H cyclobenzaprine 10 mg tablet 10 mg PO TID PRN (Reason: Muscle Spasm) Qty: 20 0RF ibuprofen 600 mg tablet 600 mg PO Q8H PRN (Reason: pain) Qty: 30 0RF Primary Care Provider: Frederic Luong Referrals: Frederic Luong MD [Primary Care Provider] - Dentist,Your [STAFF PHYSICIAN] - As Needed Activity Restrictions/Additional Instructions: NO hot beverages for 24 hrs. Nothing more to eat or drink tonight at all (unlessyou have an antibiotic pill to still take). Disposition Disposition: Home, Self Care What to do if you have Problems For any increased pain, shortness of breath, bleeding, nausea or vomiting, chestpain, or any unexpected problems, contact your Primary Care Provider. Call [facility] ([phone]) or report to the closest Emergency Room. Call 911 if necessary. 04/13/23 1068 <Electronically signed by Pj Avendano MD> Cosigner Signature (if applicable): CC: Dr. Frederic Luong MD ~ Signed [facility] Work Phone: [phone] 143-291709-14-2023 History and physical note* Alen Arroyo MD - 12/28/2022 11:00 AM EDT Images from the original note were not included. HISTORY AND PHYSICAL Renate Infante 1950 REFERRING PHYSICIAN: Moon Ferris APRN.CNP CHIEF COMPLAINT: Consult (Screening for colon cancer) HPI: The patient is a 72 year old female referred for endoscopy. Renate notes history of colon polyps and is overdue for surveillance colonoscopy. Patient denies any change in bowel habits, weight changes, blood in stools, black tarry stools or abdominal pain. Denies family history of colon issues. The patient notes no upper GI complaints. Renate has undergone prior endoscopy. Last colonoscopy 05/23/13 [...] nourished, well hydrated in no acute distress. Thepatient is oriented to time, place, and person. VITALS: Blood pressure 138/86, pulse 89, temperature 36.7 C (98.1 F), height 157.5 cm (5' 2), weight 60.4 kg (133 lb 3.2 oz), last menstrual period 07/03/2005, SpO2 98 %. Body mass index is 24.36 kg/m . HEENT: Normal cephalic, ataumatic, pupils are equally round, sclera are anicteric, mucous membranesare moist, oropharynx is clear. Neck has no [...] Will plan for lower endoscopy. We discussed therisks and benefits of the planned endoscopy. I have informed the patient that complications can occur including failure to complete the endoscopy and perforation. The patient had the opportunity to ask questions concerning the planned endoscopy. My staff has also explained the procedure to the patient in understandable terms and has given the patient printed material concerning the procedure. Thepatient freely consents to surgery. I plan to [...] has been reviewed and the patient has beenexamined. The contents accurately reflect the patient's condition with the following additions or revisions since the H&P was completed. Examination indicates no changes. This H&P can be found in the attached. SIGNATURE: Alen Arroyo III, MD PATIENT NAME: Renate Infante DATE: December 28, 2022 TIME: 10:16 AM [facility] Nurse Note* Verona Mesa RN - 12/28/2022 10:36 AM EDT Abdomen soft non-distended. Will continue to monitor. Passing a moderate amount of air via rectum. [facility] Nurse Note* Randa Otero LPN - 12/01/2022 10:20 AM EDT REVIEW OF SYSTEMS: General: The patient denies [...] 06/2022 Randa Otero LPN [facility] History of Present illness Narrative* Susan Chen PA-C - 12/01/2022 10:09 AM EDT HISTORY AND PHYSICAL Renate Infante 1950 REFERRING PHYSICIAN: Moon Ferris APRN.EXCELLENCE SPECIALIST CHIEF COMPLAINT: Consult (Screening for colon cancer) HPI: The patient is a 72 year old female referred for endoscopy. Renate notes history of colon polyps and is overdue for surveillance colonoscopy. Patient denies any change in bowel habits, weight changes, blood in stools, black tarry stools or abdominal pain. Denies family history of colon issues. The patient notes no upper GI complaints. Renate has undergone prior endoscopy. Last colonoscopy 05/23/13 [...] nourished, well hydrated in no acute distress. Thepatient is oriented to time, place, and person. VITALS: Blood pressure 138/86, pulse 89, temperature 36.7 C (98.1 F), height 157.5 cm (5' 2), weight 60.4 kg (133 lb 3.2 oz), last menstrual period 07/03/2005, SpO2 98 %. Body mass index is 24.36 kg/m . HEENT: Normal cephalic, ataumatic, pupils are equally round, sclera are anicteric, mucous membranesare moist, oropharynx is clear. Neck has no [...] Will plan for lower endoscopy. We discussed therisks and benefits of the planned endoscopy. I have informed the patient that complications can occur including failure to complete the endoscopy and perforation. The patient had the opportunity to ask questions concerning the planned endoscopy. My staff has also explained the procedure to the patient in understandable terms and has given the patient printed material concerning the procedure. Thepatient freely consents to surgery. I plan to [...] mail. Susan Chen PA-C [facility] Miscellaneous Notes* Telephone Encounter - Marlon Brooks Ma - 11/20/2022 4:41 PM EDT Detailed message left on patient identified voicemail. * Telephone Encounter - Moon Ferris APRN.CNP - 11/20/2022 4:22 PM EDT She will need seen by general surgery first Moon Ferris APRN.CNP * Telephone Encounter - Marlon Brooks Ma - 11/20/2022 10:16 AM EDT Can we re-file order? No longer showing under active request * Telephone Encounter - Carlos Alberto Galvin - 11/20/2022 9:51 AM EDT Patient is requesting a colonoscopy order, please advise. States possible hemorrhoid. Thank you [facility]08-[facility]23 Miscellaneous Notes* Telephone Encounter - Marlon Brooks Ma - 11/15/2022 12:48 PM EDT JASON: 09/05/2022 Last refill: 09/05/2022 QTY: 30 Refills: 1 [facility] in [facility]23 Miscellaneous Notes* Telephone Encounter - Mariana Carlos LPN - 11/10/2022 11:15 AM EDT Fyi to pcp. * Telephone Encounter - Carlos Alberto Galvin - 11/10/2022 10:28 AM EDT 3rd failed attempt to schedule colonoscopy. Left VM, sent MyChart, and letter. Cancelled request, please place a new order when patient is ready to schedule. Thank you! JN 11/10 [facility]04-18-2023 Miscellaneous Notes* Letter - Mammography Coordinator - 08/01/2022 1:57 PM EDT August 02, 2022 PID: [id number] Renate Infante [address] [place] [address] Dear Moshe Infante, We are pleased to inform you that [...] report will [facility] your permanent medical record and are available for your continuing care. Thank you for allowing us to help in meeting your health care needs. Sincerely, Dr. Child Interpreting Radiologist [facility] (Normal over 40) documented in this encounterPe[facility]04-18-[facility]23 History of Present illness Narrative* Sara Mann RT(R) - 08/01/2022 9:30 AM EDT Radiology Service Progress Note PATIENT NAME: Renate Infante DATE OF SERVICE: August 01, 2022 TIME: 9:25 AM PATIENT IDENTITY VERIFICATION COMPLETED USING TWO (2) IDENTIFIERS: Name and Date of confirmedby patient verbally. FALL SCREENING: Has the patient [...] RT Matthew(Cassandra) August 01, 2022 9:25 AM documented in this encounter[facility]04-06-[facility]23 History of Present illness Narrative* Frederic Luong MD - 07/20/2022 11:15 AM EDT This note was created using Currenseeriter. Subjective Renate Infante is a 71 year old female. She [...] or effusion. Normal range of motion. Tenderness present.No medial joint line tenderness. Right lower leg: No swelling. Neurological: General: No focal deficit present. Mental Status: She is alert. Gait: Gait normal. Assessment and Plan 1. Acute leg pain, right - ICD9: 729.5, ICD10: M79.604 Resolving. She declined orthopedic consult for now. Finish medications. Call for referral if symptoms recur. Frederic Luong MD documented in [facility]04-03-2023 Miscellaneous Notes* Telephone Encounter - Susan Brewer RN - 07/17/2022 4:54 PM EDT Pt called and is notified of providers results and instructions. Pt voices understanding. Susan Brewer RN * Addendum Note - Frederic Luong MD - 07/17/2022 4:32 PM EDTAddended by: FREDERIC LUONG on: 07/17/2022 04:32 PM Modules accepted: Orders * Telephone Encounter - Frederic Luong MD - 07/17/2022 4:31 PM EDT Negative for DVT. I can recommend steroid pack now for inflammation. MEDROL PACK recommended, ordered. Please inform the patient. * Telephone Encounter - Mariana Carlos LPN - 07/17/2022 1:47 PM EDT Called [facility] and they can work pt in today at 230 . Order faxed to [phone]. Called pt and all reviewed. * Telephone Encounter - Mariana Carlos LPN - 07/17/2022 1:23 PM EDT Called pt and all reviewed. She is available today for ultrasound. Reviewing if this at [facility] speciality center or [facility]. * Telephone Encounter - Frederic Luong MD - 07/17/2022 12:44 PM EDT Labs okay except for elevated d-dimer. I cannot rule out DVT. Xrays showed no acute disease. See in the ER 07/15/22 and prescribed ibuprofen and flexeril. Vicodin prescribed short term for now. ASSESSMENT/PLAN: 1. Acute leg pain, right - ICD9: 729.5, ICD10: M79.604 - US LEG VEIN DVT UNL VAS LAB - HYDROCODONE 5 MG-ACETAMINOPHEN 325 MG TABLET Frederic Luong MD * Telephone Encounter - Bettye Randall - 07/17/2022 9:51 AM EDT Patient requesting medication for pain relief of the knee, patient stated that the shot given to her in office only helped a few hours. Patient stated that she is not able to put weight on knee and has been taking ibuprofen and is not helping with pain. documented in this encounter[facility]04-02-2023 Miscellaneous Notes* Telephone Encounter - Frederic Luong MD - 07/16/2022 1:38 PM EDT Labs okay except for elevated d-dimer. I cannot rule out DVT. Xrays no acute disease. Plan: I agree with ER if worse. If not done, schedule venous duplex right leg STAT Sunday, tomorrow. * Telephone Encounter - Estefania Jimenez RN - 07/16/2022 12:27 PM EDT Pt stated she is having a lot pain in legs 10/10 from hip down her leg. Outcome :Pt stated understanding to recommendation. She stated she will go to [place]. Reason for Disposition Knee pain is main [...] it is not improvement. Protocols used: Leg Tacd-UJEKY-HK, Knee Anxv-TEAZI-IG documented in this encounterPe[facility]03-30-2023 Miscellaneous Notes* Result Encounter Note - Frederic Luong MD - 07/13/2022 1:00 PM EDT Xray with no acute findings. Results viewed. * Result Encounter Note - Frederic Luong MD - 07/13/2022 1:00 PM EDT Result viewed. No acute findings. Follow up needed. documented in this encounterPeoples Hospital03-30-2023 Progress note* Result Encounter Note - Frederic Luong MD - 07/13/2022 1:00 PM EDT Xray with no acute findings. Results viewed. [facility]* Result Encounter Note - Frederic Luong MD - 07/13/2022 1:00 PM EDT Result viewed. No acute findings. Follow up needed. [facility] Instructions* Patient Instructions* Frederic Luong MD - 07/13/2022 12:28 PM EDT Health [...] until the day before your colonoscopy. Designated Accounting Office Manager on the Day of Your Exam A responsible family member or friend MUST come with you to your colonoscopy and REMAIN in the endoscopy area until you are discharged! You are NOT ALLOWED to drive, take a taxi or bus, or leave the Endoscopy Center ALONE. If you do not have a responsible taxi cab driver (family member or friend) with you [...] carbonated beverages such as lexie james or lemon-chipewwa soda; Gatorade or other sports drinks (not [...] calling after 5:00 PM, please call Nurse customer solutions representative at [phone]. [facility] [address] [place] [id number] Index # [id number] Revised 05/2016 3 Colonoscopy Procedure Overview Please [...] If the nausea persists, please contact nurse english as a second language teacher at [phone]. You may experience skin irritation around the anus due to the passage of liquid stools. To prevent and treat skin irritation, you should: ?Apply Vaseline or Desitin ointment to the skin around the anus before drinking the bowel preparation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 pelvic region and thigh [facility]* Diagnosis Screen for colon cancer- Primary Special screening for malignant neoplasms, colon documented in this encounter [facility] note* Diagnosis History of colonic polyps- Primary Personal history of colonic polyps Screen for colon cancer Special screening for malignant neoplasms, colon documented in this encounter [facility] note* Diagnosis Encounter for screening for malignant neoplasm of colon- Primary Special screening for malignant neoplasms, colon History of colonic polyps Personal history of colonic polyps [facility]* Diagnosis Encounter for screening mammogram for malignant neoplasm of breast Other screening mammogram [facility] Diagnosis Trigger middle finger of right hand- Primary Trigger finger (acquired) Memory changes Memory loss Need for influenza vaccination Need for prophylactic vaccination and inoculation against influenza Age-related osteoporosis without current pathological fracture Senile osteoporosis documented in this encounter [facility]* Diagnosis Procedure not carried out- Primary Procedure not carried out for other reasons [facility] Trigger middle finger of right hand Trigger finger (acquired) Trigger middle finger of right hand Trigger finger (acquired) [facility] Diagnosis Trigger middle finger of right hand- Primary Trigger finger (acquired) Trigger middle finger of right hand Trigger finger (acquired) [facility] Diagnosis Trigger middle finger of right hand- Primary Trigger finger (acquired) [facility] Diagnosis Encounter for screening mammogram for breast cancer [facility] Diagnosis Trigger middle finger of right hand- Primary Trigger finger (acquired) Postoperative stitch abscess Other postoperative infection [facility] Diagnosis Trigger middle finger of right hand- Primary Trigger finger (acquired) [facility] Diagnosis Pain, dental- Primary Unspecified disorder of the teeth and supporting structures [facility]* Diagnosis Acute leg pain, right [facility] Diagnosis Pain Generalized pain [facility] Diagnosis Acute pain of right knee [facility] Diagnosis Cough [facility]* Diagnosis Gross hematuria- Primary Pelvic pain [facility]* Diagnosis Rib contusion, left, subsequent encounter- Primary Elevated blood pressure reading Elevated blood pressure reading without diagnosis of hypertension [facility]* Diagnosis Urinary urgency- Primary Urgency of urination [facility]* Diagnosis Acute UTI- Primary Urinary tract infection, site not specified [facility]* Diagnosis Medicare annual wellness visit, subsequent- Primary Routine general medical examination at a health care facility Situational mixed anxiety and depressive disorder Adjustment disorder with mixed anxiety and depressed mood Age-related osteoporosis without current pathological fracture Senile osteoporosis Hyperlipidemia, mixed Mixed hyperlipidemia Vitamin D deficiency Unspecified vitamin D deficiency Screening for depression Encounter for screening examination for other mental health and behavioral disorders Encounter for immunization Need for other specified prophylactic vaccination against single bacterial disease [facility] Diagnosis Urinary hesitancy- Primary Dysuria Pelvic pain [facility] Diagnosis Situational mixed anxiety and depressive disorder- Primary Adjustment disorder with mixed anxiety and depressed mood Hyperlipidemia, unspecified hyperlipidemia type Vitamin D deficiency Unspecified vitamin D deficiency [facility] Diagnosis Situational mixed anxiety and depressive disorder- Primary Adjustment disorder with mixed anxiety and depressed mood [facility] Diagnosis Situational mixed anxiety and depressive disorder- Primary Adjustment disorder with mixed anxiety and depressed mood Insomnia, unspecified type [facility] Situational mixed anxiety and depressive disorder- Primary Adjustment disorder with mixed anxiety and depressed mood Tremor Abnormal involuntary movements [facility] Additional Instructions May try Voltaren topical cream/gel to affected area.[facility] Work Phone: Hospital Discharge instructions Additional Instructions NO hot beverages for 24 hrs. Nothing more to eat or drink tonight at all (unless you have an antibiotic pill to still take).[facility] Work Phone: Hospital Discharge instructions Additional Instructions Keep the knee wrapped to reduce swelling and take hydrocodone as needed. If you do not need it take Tylenol every 6 hours. Follow-up with your orthopedic doctor.[facility] Work Phone: Hospital Discharge instructionsAdditional Instructions You have a blockage of your submandibular gland. You also have an infection. You were placed on antibiotics and prescription for pain medicine. You need to suck on lemon drops every hour while awake.[facility] Work Phone: Reason for referral (narrative)* Diagnostic Procedure Only (Routine) - Pending Review Specialty Diagnoses / Procedures Referred By Eben malcolm Referred To Contact [facility] Diagnoses Encounter for screening mammogram for breast cancer Procedures BEULAH SCREENING SCREENING MAMMOGRAPHY BI 2-VIEW BREAST INC CAD Frederic Luong MD [address] [place] [address] [facility] [address] [place] [address] Referral ID Status Reason Start Date Expiration Date Visits Requested Visits Authorized [id number] Pending Review Auto-Generat ed Referral 10/12/2021 11/11/2022 1 1 [facility] for referral (narrative)* Diagnostic Procedure Only (Urgent) - Closed Specialty Diagnoses / Procedures Referred By Contac t Referred To Contact XR IMAGING Diagnoses Pain Procedures XR HAND GENERAL 3V PA/LAT/OBL LEFT RADEX HAND MINIMUM 3 VIEWS Agus Garcia APRN.CNP [address] [place] [address] X[facility] Referral ID Status Reason Start Date Expiration Date V isits Requested Visits Authorized [id number] Closed Auto-Generate d Referral 03/31/2022 04/30/2023 1 1 [facility] for referral (narrative)* Diagnostic Procedure Only (Routine) - Closed Specialty Diagnoses / Procedures Referred By Contac t Referred To Contact XR IMAGING Diagnoses Acute leg pain, right Procedures XR KNEE GENERAL 4V AP BOTH/PA BOTH/LAT/MERC RIGHT RADIOLOGIC EXAM KNEE COMPLETE 4/MORE VIEWS Frederic Luong MD [address] [place] [address] X[facility] Imaging Referral ID Status Reason Start Date Expiration Date V isits Requested Visits Authorized [id number] Closed Auto-Generate d Referral 07/13/2022 08/12/2023 1 1 * Diagnostic Procedure Only (Routine) - Closed Specialty Diagnoses / Procedures Referred By Contac t Referred To Contact XR IMAGING Diagnoses Acute leg pain, right Procedures XR HIP GENERAL 3V PELV/AP/LAT RIGHT RADEX HIP UNILATERAL WITH PELVIS 2-3 VIEWS Frederic Luong MD [address] [place] [address] Xr Imaging Referral ID Status Reason Start Date Expiration Date V isits Requested Visits Authorized [id number] Closed Auto-Generate d Referral 07/13/2022 08/12/2023 1 1 * Outpatient Procedure (Routine) - Pending Review Specialty Diagnoses / Procedures Referred By Eben malcolm Referred To Contact [facility] Diagnoses Special screening for malignant neoplasms, colon Procedures COLONOSCOPY SCREENING COLONOSCOPY FLX DX W/COLLJ SPEC WHEN PFRMFrederic Rothman MD [address] [place] [address] [facility] [place] [facility] [address] [place] [address] Referral ID Status Reason Start Date Expiration Date Visits Requested Visits Authorized [id number] Pending Review Auto-Generat ed Referral 07/13/2022 07/14/2023 1 1 * Diagnostic Procedure Only (Routine) - Pending Review Specialty Diagnoses / Procedures Referred By Eben malcolm Referred To Contact [facility] Diagnoses Encounter for screening mammogram for malignant neoplasm of breast Procedures BEULAH SCREENING SCREENING MAMMOGRAPHY BI 2-VIEW BREAST INC CAD Frederic Luong MD [facility] [place] [address] [facility] [address] [place] [id number] Referral ID Status Reason Start Date Expiration Date Visits Requested Visits Authorized [id number] Pending Review Auto-Generat ed Referral 07/13/2022 08/12/2023 1 1 [facility] for referral (narrative)* Outpatient Procedure (Routine) - Pending Review Specialty Diagnoses / Procedures Referred By Eben malcolm Referred To Contact [facility] Diagnoses Acute leg pain, right Procedures US LEG VEIN DVT UNL VAS LAB DUP-SCAN XTR VEINS UNILATERAL/LIMITED STUDY Frederic Luong MD [address] [place] [address] [facility] [place] [address] [place] [address] Referral ID Status Reason Start Date Expiration Date Visits Requested Visits Authorized [id number] Pending Review Auto-Generat ed Referral 07/17/2022 07/17/2023 1 1 [facility] for referral (narrative)* Outpatient Procedure (Routine) - Closed Specialty Diagnoses / Procedures Referred By Maliaac t Referred To Contact [facility] Diagnoses History of colonic polyps Procedures COLONOSCOPY SCREENING COLONOSCOPY FLX DX W/COLLJ SPEC WHEN PFRMD Susan Chen PA-C [address] [facility] [place] [address] [facility] [place] [facility] [address] [place] [address] Referral ID Status Reason Start Date Expiration Date V isits Requested Visits Authorized [id number] Closed Auto-Generate d Referral 12/01/2022 12/02/2023 1 1 [facility] for referral (narrative)* Diagnostic Procedure Only (Routine) - Closed Specialty Diagnoses / Procedures Referred By Eben malcolm Referred To Contact [facility] Diagnoses Encounter for screening mammogram for malignant neoplasm of breast Procedures BEULAH SCREENING SCREENING MAMMOGRAPHY BI 2-[place] [address] [place] [address] [facility] [address] [place] [address] Referral ID Status Reason Start Date Expiration Date V isits Requested Visits Authorized [id number] Closed Auto-Generate d Referral 07/13/2022 08/12/2023 1 1 [facility] for referral (narrative)* Diagnostic Procedure Only (Routine) - Pending Review Specialty Diagnoses / Procedures Referred By Eben malcolm Referred To Contact [facility] Diagnoses Encounter for screening mammogram for breast cancer Procedures BEULAH SCREENING SCREENING MAMMOGRAPHY BI 2-VIEW BREAST INC Frederic Miller MD [address] [place] [address] [facility] [address] [place] [address] Referral ID Status Reason Start Date Expiration Date Visits Requested Visits Authorized [id number] Pending Review Auto-Generat ed Referral 09/05/2023 10/04/2024 1 1 [facility] for referral (narrative)* Diagnostic Procedure Only (Routine) - Closed Specialty Diagnoses / Procedures Referred By Contac t Referred To Contact XR IMAGING Diagnoses Acute leg pain, right Procedures XR KNEE GENERAL 4V AP BOTH/PA BOTH/LAT/MERC RIGHT RADIOLOGIC EXAM KNEE COMPLETE 4/MORE VIEWS Frederic Luong MD [address] [place] [address] [place] [address] Referral ID Status Reason Start Date Expiration Date V isits Requested Visits Authorized [id number] Closed Auto-Generate d Referral 07/13/2022 08/12/2023 1 1 * Diagnostic Procedure Only (Routine) - Closed Specialty Diagnoses / Procedures Referred By Contac t Referred To Contact X[facility] IMAGING Diagnoses Acute leg pain, right Procedures XR HIP GENERAL 3V PELV/AP/LAT RIGHT RADEX HIP UNILATERAL WITH PELVIS 2-3 VIEWS Frederic Luong MD [address] [place] [address] [place] [address] Referral ID Status Reason Start Date Expiration Date V isits Requested Visits Authorized [id number] Closed Auto-Generate d Referral 07/13/2022 08/12/2023 1 1 [facility] for referral (narrative)* Diagnostic Procedure Only (Urgent) - Closed Specialty Diagnoses / Procedures Referred By Contac t Referred To Contact [facility] IM[facility] Diagnoses Pain Procedures XR HAND GENERAL 3V PA/LAT/OBL LEFT RADEX HAND MINIMUM 3 VIEWS Agus Garcia APRN.CNP [address] [place] [address] [place] [address] Referral ID Status Reason Start Date Expiration Date V isits Requested Visits Authorized [id number] Closed Auto-Generate d Referral 03/31/2022 04/30/2023 1 1 [facility] for referral (narrative)* Diagnostic Procedure Only (Urgent) - Closed Specialty Diagnoses / Procedures Referred By Contac t Referred To Contact X[facility] IMAGING Diagnoses Acute pain of right knee Procedures XR KNEE GENERAL 4V AP BOTH/PA BOTH/LAT/MERC RIGHT RADIOLOGIC EXAM KNEE COMPLETE 4/MORE VIEWS Stacey Don APRN.EXCELLENCE SPECIALIST [address] [place] [address] [place] [address] Referral ID Status Reason Start Date Expiration Date V isits Requested Visits Authorized [id number] Closed Auto-Generate d Referral 11/17/2021 12/17/2022 1 1 [facility] for referral (narrative)No reason for referral information [facility] Outpatient Procedure (Routine) - Closed Specialty Diagnoses / Procedures Referred By Contac t Referred To Contact [facility] Diagnoses History of colonic polyps Procedures COLONOSCOPY SCREENING COLONOSCOPY FLX DX W/COLLJ SPEC WHEN PFRMD Susan Chen PA-C [address] [place] [address] [facility] [place] [facility] [address] [place] [address] Referral ID Status Reason Start Date Expiration Date V isits Requested Visits Authorized [id number] Closed Auto-Generate d Referral 12/01/2022 12/02/2023 1 1 [facility] for visit Narrative* Diagnostic Procedure Only (Routine) - Closed Specialty Diagnoses / Procedures Referred By Contac t Referred To Contact [facility] Diagnoses Encounter for screening mammogram for malignant neoplasm of breast Procedures BEULAH SCREENING SCREENING MAMMOGRAPHY BI 2-VIEW BREAST INC CAD Frederic Luong MD [facility] [place] [address] [facility] [address] [place] [address] Referral ID Status Reason Start Date Expiration Date V isits Requested Visits Authorized [id number] Closed Auto-Generate d Referral 07/13/2022 08/12/2023 1 1 [facility] for visit Narrative* Diagnostic Procedure Only (Routine) - Closed Specialty Diagnoses / Procedures Referred By Contac t Referred To Contact XR IMAGING Diagnoses Acute leg pain, right Procedures XR KNEE GENERAL 4V AP BOTH/PA BOTH/LAT/MERC RIGHT RADIOLOGIC EXAM KNEE COMPLETE 4/MORE VIEWS Frederic Luong MD [address] [place] [address] [place] [address] Referral ID Status Reason Start Date Expiration Date V isits Requested Visits Authorized [id number] Closed Auto-Generate d Referral 07/13/2022 08/12/2023 1 1 [facility] for visit Narrative* Diagnostic Procedure Only (Urgent) - Closed Specialty Diagnoses / Procedures Referred By Contac t Referred To Contact XR IMAGING Diagnoses Pain Procedures XR HAND GENERAL 3V PA/LAT/OBL LEFT RADEX HAND MINIMUM 3 VIEWS Agus Garcia, SHILO.EXCELLENCE SPECIALIST [address] [place] [address] [place] [address] Referral ID Status Reason Start Date Expiration Date V isits Requested Visits Authorized [id number] Closed Auto-Generate d Referral 03/31/2022 04/30/2023 1 1 [facility] for visit Narrative* Diagnostic Procedure Only (Urgent) - Closed Specialty Diagnoses / Procedures Referred By Contac t Referred To Contact XR IMAGING Diagnoses Acute pain of right knee Procedures XR KNEE GENERAL 4V AP BOTH/PA BOTH/LAT/MERC RIGHT RADIOLOGIC EXAM KNEE COMPLETE 4/MORE VIEWS Stacey Don, AUTOMATIC MACHINES SUPERVISOR.EXCELLENCE SPECIALIST [address] [place] [address] [place] [address] Referral ID Status Reason Start Date Expiration Date V isits Requested Visits Authorized [id number] Closed Auto-Generate d Referral 11/17/2021 12/17/2022 1 1 [facility] Chief Complaint and Reason for Visit Chief Complaint back Chief Complaint r arm injury Chief Complaint leg pain Chief Complaint leg pain PAIN IN RIGHT LEG Chief Complaint DENTAL Chief Complaint DENTAL KNEE Chief Complaint Admit Date dental October 18, 2024 6:02a m Advance Directives No Advanced Directives Records Found Advance Directive Response Recorded Date/ Time Advance Directives No February 4:00pm Living Will No August 12, 2021 10:02am Power of Stock Lifter No August 12 10:02am Advance Directive Response Recorded Date/ Time Advance Directives No February 4:00pm Living Will No February 17 8:31pm Power of Stock Lifter No February 17, 2022 8:31pm Advance Directive Response Recorded Date/ Time Advance Directives No February 4:00pm Living Will No July 15, 2022 3:17pm Power of Stock Lifter No July 15 3:17pm Advance Directive Response Recorded Date/ Time Advance Directives No February 3:00pm Living Will No April 13, 023 6:11pm Power of Stock Lifter No April 13, 2023 6:11pm Advance Directive Response Recorded Date/ Time Advance Directives No February 4:00pm Living Will No July 01, 2023 3:05pm Power of Stock Lifter No June 30 3:05pm Advance Directive Response Recorded Date/ Time Do you have a [facility] Power of Stock Lifter? No October 18, 2024 6:02am Advance Directives No February 4:00pm Medications Administered Section Inactive Administered Medications - [...] cancer Procedures CONSULT TO GENERAL SURGERY OFFICE/OUTPATIENT [facility] 60-74 MINUTES Moon Ferris APRN.CNP [address] [place] [address] Referral ID Status Reason Start Date Expiration Date Visits Requested Visits Authorized [id number] Pending Review PCP Requested Referral 11/20/2022 11/20/2023 1 1 Specialty Diagnoses / Procedures Referred By Contac t Referred To Contact Orthopedics Diagnoses Trigger middle finger of right hand Procedures CONSULT TO ORTHOPAEDICS OFFICE/OUTPATIENT [facility] 60 [place] [address] Referral ID Status Reason Start Date Expiration Date Visits Requested Visits Authorized [id number] Authorized PCP Requested Referral 06/04/2023 06/03/2024 1 1 Specialty Diagnoses / Procedures Referred By Contac t Referred To Contact Diagnoses Urinary hesitancy Dysuria Pelvic pain Procedures CONSULT TO FEMALE UROLOGY/URO GYNECOLOGY Frederic Luong MD [address] [place] [address] Referral ID Status Reason Start Date Expiration Date Visits Requested Visits Authorized [id number] Authorized PCP Requested Referral 05/16/2024 05/16/2025 1 1 Summary Purpose Family History No Family History Records FoundNo Family History Records FoundNo Family History Records Found Additional Source Comments Source Comments (unrecognize d section and content) In the event this informatio n is protected by the Federal Confidentiality of Alcohol and Drug Abuse Patient Records regulations: The Federal rules restrict any use of the information to criminally investigate or prosecute any alcohol or drug abuse patient.[facility] this information is protected by the Federal Confidentiality of Alcohol and Drug Abuse Patient Records regulations: The Federal rules restrict any use of the information to criminally investigate or prosecute any alcohol or drug abuse patient.[facility] the event this information is protected by the Federal Confidentiality of Alcohol and Drug Abuse Patient Records regulations: The Federal rules restrict any use of the information to criminally investigate or prosecute any alcohol or drug abuse patient.[facility] the event this information is protected by the Federal Confidentiality of Alcohol and Drug Abuse Patient Records regulations: The Federal rules restrict any use of the information to criminally investigate or prosecute any alcohol or drug abuse patient.[facility] the event this information is protected by the Federal Confidentiality of Alcohol and Drug Abuse Patient Records regulations: The Federal rules restrict any use of the information to criminally investigate or prosecute any alcohol or drug abuse patient.[facility] the event this information is protected by the Federal Confidentiality of Alcohol and Drug Abuse Patient Records regulations: The Federal rules restrict any use of the information to criminally investigate or prosecute any alcohol or drug abuse patient.[facility] the event this information is protected by the Federal Confidentiality of Alcohol and Drug Abuse Patient Records regulations: The Federal rules restrict any use of the information to criminally investigate or prosecute any alcohol or drug abuse patient.[facility] the event this information is protected by the Federal Confidentiality of Alcohol and Drug Abuse Patient Records regulations: The Federal rules restrict any use of the information to criminally investigate or prosecute any alcohol or drug abuse patient.[facility] the event this information is protected by the Federal Confidentiality of Alcohol and Drug Abuse Patient Records regulations: The Federal rules restrict any use of the information to criminally investigate or prosecute any alcohol or drug abuse patient.[facility] the event this information is protected by the Federal Confidentiality of Alcohol and Drug Abuse Patient Records regulations: The Federal rules restrict any use of the information to criminally investigate or prosecute any alcohol or drug abuse patient.[facility] the event this information is protected by the Federal Confidentiality of Alcohol and Drug Abuse Patient Records regulations: The Federal rules restrict any use of the information to criminally investigate or prosecute any alcohol or drug abuse patient.[facility] the event this information is protected by the Federal Confidentiality of Alcohol and Drug Abuse Patient Records regulations: The Federal rules restrict any use of the information to criminally investigate or prosecute any alcohol or drug abuse patient.[facility] the event this information is protected by the Federal Confidentiality of Alcohol and Drug Abuse Patient Records regulations: The Federal rules restrict any use of the information to criminally investigate or prosecute any alcohol or drug abuse patient.[facility] the event this information is protected by the Federal Confidentiality of Alcohol and Drug Abuse Patient Records regulations: The Federal rules restrict any use of the information to criminally investigate or prosecute any alcohol or drug abuse patient.[facility] the event this information is protected by the Federal Confidentiality of Alcohol and Drug Abuse Patient Records regulations: The Federal rules restrict any use of the information to criminally investigate or prosecute any alcohol or drug abuse patient.[facility] the event this information is protected by the Federal Confidentiality of Alcohol and Drug Abuse Patient Records regulations: The Federal rules restrict any use of the information to criminally investigate or prosecute any alcohol or drug abuse patient.[facility] the event this information is protected by the Federal Confidentiality of Alcohol and Drug Abuse Patient Records regulations: The Federal rules restrict any use of the information to criminally investigate or prosecute any alcohol or drug abuse patient.[facility] HospitalIn the event this information is protected by the Federal Confidentiality of Alcohol and Drug Abuse Patient Records regulations: The Federal rules restrict any use of the information to criminally investigate or prosecute any alcohol or drug abuse patient.[facility] HospitalIn the event this information is protected by the Federal Confidentiality of Alcohol and Drug Abuse Patient Records regulations: The Federal rules restrict any use of the information to criminally investigate or prosecute any alcohol or drug abuse patient.[facility] HospitalIn the event this information is protected by the Federal Confidentiality of Alcohol and Drug Abuse Patient Records regulations: The Federal rules restrict any use of the information to criminally investigate or prosecute any alcohol or drug abuse patient.[facility] the event this information is protected by the Federal Confidentiality of Alcohol and Drug Abuse Patient Records regulations: The Federal rules restrict any use of the information to criminally investigate or prosecute any alcohol or drug abuse patient.[facility] HospitalIn the event this information is protected by the Federal Confidentiality of Alcohol and Drug Abuse Patient Records regulations: The Federal rules restrict any use of the information to criminally investigate or prosecute any alcohol or drug abuse patient.[facility] HospitalIn the event this information is protected by the Federal Confidentiality of Alcohol and Drug Abuse Patient Records regulations: The Federal rules restrict any use of the information to criminally investigate or prosecute any alcohol or drug abuse patient.[facility] the event this information is protected by the Federal Confidentiality of Alcohol and Drug Abuse Patient Records regulations: The Federal rules restrict any use of the information to criminally investigate or prosecute any alcohol or drug abuse patient.[facility] HospitalIn the event this information is protected by the Federal Confidentiality of Alcohol and Drug Abuse Patient Records regulations: The Federal rules restrict any use of the information to criminally investigate or prosecute any alcohol or drug abuse patient.[facility] HospitalIn the event this information is protected by the Federal Confidentiality of Alcohol and Drug Abuse Patient Records regulations: The Federal rules restrict any use of the information to criminally investigate or prosecute any alcohol or drug abuse patient.[facility] HospitalIn the event this information is protected by the Federal Confidentiality of Alcohol and Drug Abuse Patient Records regulations: The Federal rules restrict any use of the information to criminally investigate or prosecute any alcohol or drug abuse patient.[facility] the event this information is protected by the Federal Confidentiality of Alcohol and Drug Abuse Patient Records regulations: The Federal rules restrict any use of the information to criminally investigate or prosecute any alcohol or drug abuse patient.[facility] HospitalIn the event this information is protected by the Federal Confidentiality of Alcohol and Drug Abuse Patient Records regulations: The Federal rules restrict any use of the information to criminally investigate or prosecute any alcohol or drug abuse patient.[facility]In the event this information is protected by the Federal Confidentiality of Alcohol and Drug Abuse Patient Records regulations: The Federal rules restrict any use of the information to criminally investigate or prosecute any alcohol or drug abuse patient.[facility] HospitalIn the event this information is protected by the Federal Confidentiality of Alcohol and Drug Abuse Patient Records regulations: The Federal rules restrict any use of the information to criminally investigate or prosecute any alcohol or drug abuse patient.[facility] HospitalIn the event this information is protected by the Federal Confidentiality of Alcohol and Drug Abuse Patient Records regulations: The Federal rules restrict any use of the information to criminally investigate or prosecute any alcohol or drug abuse patient.[facility] HospitalIn the event this information is protected by the Federal Confidentiality of Alcohol and Drug Abuse Patient Records regulations: The Federal rules restrict any use of the information to criminally investigate or prosecute any alcohol or drug abuse patient.[facility] HospitalIn the event this information is protected by the Federal Confidentiality of Alcohol and Drug Abuse Patient Records regulations: The Federal rules restrict any use of the information to criminally investigate or prosecute any alcohol or drug abuse patient.[facility] HospitalIn the event this information is protected by the Federal Confidentiality of Alcohol and Drug Abuse Patient Records regulations: The Federal rules restrict any use of the information to criminally investigate or prosecute any alcohol or drug abuse patient.[facility] HospitalIn the event this information is protected by the Federal Confidentiality of Alcohol and Drug Abuse Patient Records regulations: The Federal rules restrict any use of the information to criminally investigate or prosecute any alcohol or drug abuse patient.[facility] HospitalIn the event this information is protected by the Federal Confidentiality of Alcohol and Drug Abuse Patient Records regulations: The Federal rules restrict any use of the information to criminally investigate or prosecute any alcohol or drug abuse patient.[facility] HospitalIn the event this information is protected by the Federal Confidentiality of Alcohol and Drug Abuse Patient Records regulations: The Federal rules restrict any use of the information to criminally investigate or prosecute any alcohol or drug abuse patient.[facility] HospitalIn the event this information is protected by the Federal Confidentiality of Alcohol and Drug Abuse Patient Records regulations: The Federal rules restrict any use of the information to criminally investigate or prosecute any alcohol or drug abuse patient.[facility] HospitalIn the event this information is protected by the Federal Confidentiality of Alcohol and Drug Abuse Patient Records regulations: The Federal rules restrict any use of the information to criminally investigate or prosecute any alcohol or drug abuse patient.[facility] HospitalIn the event this information is protected by the Federal Confidentiality of Alcohol and Drug Abuse Patient Records regulations: The Federal rules restrict any use of the information to criminally investigate or prosecute any alcohol or drug abuse patient.[facility] HospitalIn the event this information is protected by the Federal Confidentiality of Alcohol and Drug Abuse Patient Records regulations: The Federal rules restrict any use of the information to criminally investigate or prosecute any alcohol or drug abuse patient.[facility] HospitalIn the event this information is protected by the Federal Confidentiality of Alcohol and Drug Abuse Patient Records regulations: The Federal rules restrict any use of the information to criminally investigate or prosecute any alcohol or drug abuse patient.[facility] HospitalIn the event this information is protected by the Federal Confidentiality of Alcohol and Drug Abuse Patient Records regulations: The Federal rules restrict any use of the information to criminally investigate or prosecute any alcohol or drug abuse patient.[facility] HospitalIn the event this information is protected by the Federal Confidentiality of Alcohol and Drug Abuse Patient Records regulations: The Federal rules restrict any use of the information to criminally investigate or prosecute any alcohol or drug abuse patient.[facility] HospitalIn the event this information is protected by the Federal Confidentiality of Alcohol and Drug Abuse Patient Records regulations: The Federal rules restrict any use of the information to criminally investigate or prosecute any alcohol or drug abuse patient.[facility] HospitalIn the event this information is protected by the Federal Confidentiality of Alcohol and Drug Abuse Patient Records regulations: The Federal rules restrict any use of the information to criminally investigate or prosecute any alcohol or drug abuse patient.[facility] HospitalIn the event this information is protected by the Federal Confidentiality of Alcohol and Drug Abuse Patient Records regulations: The Federal rules restrict any use of the information to criminally investigate or prosecute any alcohol or drug abuse patient.[facility] HospitalIn the event this information is protected by the Federal Confidentiality of Alcohol and Drug Abuse Patient Records regulations: The Federal rules restrict any use of the information to criminally investigate or prosecute any alcohol or drug abuse patient.[facility] HospitalIn the event this information is protected by the Federal Confidentiality of Alcohol and Drug Abuse Patient Records regulations: The Federal rules restrict any use of the information to criminally investigate or prosecute any alcohol or drug abuse patient.[facility] HospitalIn the event this information is protected by the Federal Confidentiality of Alcohol and Drug Abuse Patient Records regulations: The Federal rules restrict any use of the information to criminally investigate or prosecute any alcohol or drug abuse patient.[facility] HospitalIn the event this information is protected by the Federal Confidentiality of Alcohol and Drug Abuse Patient Records regulations: The Federal rules restrict any use of the information to criminally investigate or prosecute any alcohol or drug abuse patient.[facility] HospitalIn the event this information is protected by the Federal Confidentiality of Alcohol and Drug Abuse Patient Records regulations: The Federal rules restrict any use of the information to criminally investigate or prosecute any alcohol or drug abuse patient.[facility] HospitalIn the event this information is protected by the Federal Confidentiality of Alcohol and Drug Abuse Patient Records regulations: The Federal rules restrict any use of the information to criminally investigate or prosecute any alcohol or drug abuse patient.[facility] HospitalIn the event this information is protected by the Federal Confidentiality of Alcohol and Drug Abuse Patient Records regulations: The Federal rules restrict any use of the information to criminally investigate or prosecute any alcohol or drug abuse patient.[facility] Reason for Visit (unrecogniz ed section and content) Reason Comments Cough cougha nd congestion x 1 week Reason Onset Date Comments Population Health Navigation [...] cancer Specialty Diagnoses / Procedures Referred By Contac t Referred To Contact General Surgery Diagnoses Screen for colon cancer Procedures CONSULT TO GENERAL SURGERY OFFICE/OUTPATIENT NEW HIGH MDM 60-74 MINUTES Older, Moon, AUTOMATIC MACHINES SUPERVISOR.EXCELLENCE SPECIALIST [address] [place] [address] Referral ID Status Reason Start Date Expiration Date Visits Requested Visits Authorized [id number] Pending Review PCP Requested Referral 11/20/2022 11/20/2023 1 1 Reason Onset Date Comments Right hand pain Immunizations 06/04/2023 Flu vaccination Reason Comments New Trigger Finger Specialty Diagnoses / Procedures Referred By Contac t Referred To Contact Orthopedics Diagnoses Trigger middle finger of right hand Procedures CONSULT TO ORTHOPAEDICS OFFICE/OUTPATIENT NEW HIGH MDM 60 MINUTES Frederic Luong MD [address] [place] [address] Referral ID Status Reason Start Date Expiration Date V isits Requested Visits Authorized [id number] Closed PCP Requested Referral 06/04/2023 06/03/2024 1 1 Reason Comments Schedule Surgery Reason Comments Patient Update Reason Comments Post Op Pain Reason Comments Post Op 5 weeks 3 days post op Right middle trig tejal finger release Reason Comments Fall Reason Onset Date Comments Medicare Wellness Exam 10/24/2023 Reason Comments Dental Problem right side bottom to oth x 2 days Reason Onset Date Comments ACM CECILY RN 01/07/2024 ED utilizatio n review per request of payer Reason Comments Hematuria Since 3 am Reason Comments Hematuria Reason Comments Results Reason Comments ER F/U Fall 03/20/2024 Reason Comments Urinary Problem Pain and urgency wit h urination x 1 week Reason Comments Medicare Wellness Exam Reason Comments UTI dysuria with urinary frequency. Has trouble staring the flow and will stop urinating without tryingJust finished treatment of UTI last week. Reason Comments Follow Up 4 weeks Reason Comments Follow Up 1 month Reason Comments Follow Up 1 month Reason Comments Follow Up Depression/insomnia Reason Onset Date Comments ACM CECILY RN 10/20/2024 Chart review per payor request Care Teams (unrecognized sec tion and content) Soil Conservation Technician Relationship Specialty Start Date End Date Frederic Luong MD [address] [place] [address] PCP - General 06/21/06 Soil Conservation Technician Relationship Specialty Start Date End Date Frederic Luong MD [address] [place] [address] PCP - General 06/21/06 Soil Conservation Technician Relationship Specialty Start Date End Date Frederic Luong MD [address] [facility] [place] [address] PCP - General 06/21/06 Soil Conservation Technician Relationship Specialty Start Date End Date Frederic Luong MD [address] [facility] [place] [address] PCP - General 06/21/06 Soil Conservation Technician Relationship Specialty Start Date End Date Frederic Luong MD [address] [facility] [place] [address] PCP - General 06/21/06 Soil Conservation Technician Relationship Specialty Start Date End Date Frederic Luong MD [address] [facility] [place] [address] PCP - General 06/21/06 Soil Conservation Technician Relationship Specialty Start Date End Date Frederic Luong MD [address] [facility] [place] [address] PCP - General 06/21/06 Soil Conservation Technician Relationship Specialty Start Date End Date Frederic Luong MD [address] [place] [address] PCP - General 06/21/06 Team Status: Active Member Role Status Dates Dr. Frederic Luong MD Family Provider Active Dr. Frederic Luong MD Primary Care Provider Active Team Status: Inactive Member Role Status Dates Dr. Frederic Luong MD Primary Care Provider Active Dr. Sony Eli DO Emergency Provider Active Soil Conservation Technician Relationship Specialty Start Date End Date Frederic Luong MD [address] [facility] [place] [address] PCP - General 06/21/06 Soil Conservation Technician Relationship Specialty Start Date End Date Frederic Luong MD [address] [place] [address] PCP - General 06/21/06 Team Status: Active Member Role Status Dates Dr. Frederic Luong MD Primary Care Provider, Refer ring Provider Active Dr. Kvng Tejada MD Attending Provider Active Team Status: Inactive Member Role Status Dates Dr. Frederic Luong MD Primary Care Provider Active Dr. Sony Eli DO Attending Provider, Emergency Provider Active Team Status: Inactive Member Role Status Dates Dr. Frederic Luong MD Primary Care Provider, Atten ding Provider Active Soil Conservation Technician Relationship Specialty Start Date End Date Frederic Luong MD [address] [place] [address] PCP - General 06/21/06 Soil Conservation Technician Relationship Specialty Start Date End Date Frederic Luong MD [address] [place] [address] PCP - General 06/21/06 Soil Conservation Technician Relationship Specialty Start Date End Date Frederic Luong MD [address] [place] [address] PCP - General 06/21/06 Soil Conservation Technician Relationship Specialty Start Date End Date Frederic Luong MD [address] [place] [address] PCP - General 06/21/06 Soil Conservation Technician Relationship Specialty Start Date End Date Frederic Luong MD [address] [place] [address] PCP - General 06/21/06 Soil Conservation Technician Relationship Specialty Start Date End Date Frederic Luong MD [address] [place] [address] PCP - General 06/21/06 Soil Conservation Technician Relationship Specialty Start Date End Date Frederic Luong MD [address] [facility] [place] [address] PCP - General 06/21/06 Team Status: Inactive Member Role Status Dates Dr. Frederic Luong MD Primary Care Provider Active Dr. Pj Avendano MD Emergency Provider Active Soil Conservation Technician Relationship Specialty Start Date End Date Frederic Luong MD [address] [facility] [place] [address] PCP - General 06/21/06 Team Status: Inactive Member Role Status Dates Dr. Frederic Luong MD Primary Care Provider Active Dr. Pj Avendano MD Attending Provider, Emergency Provider Active Team Status: Inactive Member Role Status Dates Dr. Frederic Luong MD Primary Care Provider Active Dr. Alen Miller DO Emergency Provider Active Soil Conservation Technician Relationship Specialty Start Date End Date Frederic Luong MD [address] [place] [address] PCP - General 06/21/06 Soil Conservation Technician Relationship Specialty Start Date End Date Frederic Luong MD [address] [place] [address] PCP - General 06/21/06 Soil Conservation Technician Relationship Specialty Start Date End Date Frederic Luong MD [address] [facility] [place] [address] PCP - General 06/21/06 Soil Conservation Technician Relationship Specialty Start Date End Date Frederic Luong MD [address] [place] [address] PCP - General 06/21/06 Soil Conservation Technician Relationship Specialty Start Date End Date Frederic Luong MD [address] [place] [address] PCP - General 06/21/06 Soil Conservation Technician Relationship Specialty Start Date End Date Frederic Luong MD [address] [place] [address] PCP - General 06/21/06 Soil Conservation Technician Relationship Specialty Start Date End Date Frederic Luong MD [address] [place] [address] PCP - General 06/21/06 Soil Conservation Technician Relationship Specialty Start Date End Date Frederic Luong MD [address] [place] [address] PCP - General 06/21/06 Soil Conservation Technician Relationship Specialty Start Date End Date Frederic Luong MD [address] [place] [address] PCP - General 06/21/06 Soil Conservation Technician Relationship Specialty Start Date End Date Frederic Luong MD [address] [place] [address] PCP - General 06/21/06 Soil Conservation Technician Relationship Specialty Start Date End Date Frederic Luong MD [address] [place] [address] PCP - General 06/21/06 Soil Conservation Technician Relationship Specialty Start Date End Date Frederic Luong MD [address] [place] [address] PCP - General 06/21/06 Soil Conservation Technician Relationship Specialty Start Date End Date Frederic Luong MD [address] [place] [address] PCP - General 06/21/06 Soil Conservation Technician Relationship Specialty Start Date End Date Frederic Luong MD [address] [place] [address] PCP - General 06/21/06 Soil Conservation Technician Relationship Specialty Start Date End Date Frederic Luong MD [address] [place] [address] PCP - General 06/21/06 Moon Feliz, AUTOMATIC MACHINES SUPERVISOR.EXCELLENCE SPECIALIST [address] [place] [address] Test Engineering Manager Internal Medicine 03/24/24 Soil Conservation Technician Relationship Specialty Start Date End Date Frederic Luong MD [address] [place] [address] PCP - General 06/21/06 Moon Feliz, AUTOMATIC MACHINES SUPERVISOR.EXCELLENCE SPECIALIST [address] [place] [address] Test Engineering Manager Internal Medicine 03/24/24 Soil Conservation Technician Relationship Specialty Start Date End Date Frederic Luong MD [address] [place] [address] PCP - General 06/21/06 Moon Feliz, AUTOMATIC MACHINES SUPERVISOR.EXCELLENCE SPECIALIST [address] [place] [address] Test Engineering Manager Internal Medicine 03/24/24 Soil Conservation Technician Relationship Specialty Start Date End Date Frederic Luong MD [address] [place] [address] PCP - General 06/21/06 Moon Feliz, AUTOMATIC MACHINES SUPERVISOR.EXCELLENCE SPECIALIST [address] [place] [address] Test Engineering Manager Internal Medicine 03/24/24 Soil Conservation Technician Relationship Specialty Start Date End Date Frederic Luong MD [address] [place] [address] PCP - General 06/21/06 Moon Feliz, AUTOMATIC MACHINES SUPERVISOR.EXCELLENCE SPECIALIST [address] [place] [address] [facility] Internal Medicine 03/24/24 Soil Conservation Technician Relationship Specialty Start Date End Date Frederic Luong MD [address] [place] [address] PCP - General 06/21/06 Moon Feliz, AUTOMATIC MACHINES SUPERVISOR.EXCELLENCE SPECIALIST [address] [place] [address] [facility] Internal Medicine 03/24/24 Soil Conservation Technician Relationship Specialty Start Date End Date Frederic Luong MD [address] [place] [address] PCP - General 06/21/06 Moon Feliz, AUTOMATIC MACHINES SUPERVISOR.EXCELLENCE SPECIALIST [address] [place] [address] [facility] Internal Medicine 03/24/24 Soil Conservation Technician Relationship Specialty Start Date End Date Frederic Luong MD [address] [place] [address] PCP - General 06/21/06 Moon Feliz, AUTOMATIC MACHINES SUPERVISOR.EXCELLENCE SPECIALIST [address] [place] [address] [facility] Internal Medicine 03/24/24 Team Status: Active Member Role/Relationship Status Dates Dr. Frederic Luong MD Primary Care Provider Active Team Status: Inactive Member Role/Relationship Status Dates Dr. Frederic Luong MD Primary Care Provider Active Start: October 18, 2024 End: October 18, 2024 Dr. Reece Valera MD Emergency Provider Active Sta rt: October 18, 2024 End: October 18, 2024 Goals (unrecognized section and content) Goals may be documented in a n alternate sectionGoals may be documented in an alternate sectionGoals may be documented in an alternate sectionGoals may be documented in an alternate sectionGoals may be documented in an alternate sectionGoals may be documented in an alternate sectionGoals may be documented in an alternate section INFORMATION SOURCE (unrecogn ized section and content) DATE CREATED AUTHOR 09/02/2023 [facility] DATE CREATED AUTHOR AUTHOR'S ORGANIZ ATION 10/24/2024 [facility] DATE CREATED AUTHOR AUTHOR'S ORGANIZ ATION 10/27/2024 [facility] FOR RECORDS PERTAINING TO PATIENTS WHO ARE [...] BE BASED ON THE PRIMARY CLINICAL RECORDS. [facility] [employer] [facility]. provides no warranty or guarantee of the accuracy or completeness of information in this document.
[2024-12-06 21:43] VITALS: BP 174/71; PULSE 75; RESP 14; O2SAT 97
[2024-12-06] MEDS: HYDROcodone Bitartrate/Apap 5/325 Tablet PO (22:50)
[2024-12-06 22:58] VITALS: BP 176/76; PULSE 74; RESP 16; TEMP 36.8; O2SAT 97
== END 2024-12-06 23:00 | disposition home or self-care (01) ==
PROVIDERS: Emergency Provider Emergency Medicine; PCP Internal Medicine; Visit Provider Emergency Medicine
DX: S16.1XXA Strain of muscle, fascia and tendon at neck level, initial encounter (principal); S00.81XA Abrasion of other part of head, initial encounter; S82.001A Unspecified fracture of right patella, initial encounter for closed fracture; W17.89XA Other fall from one level to another, initial encounter; S00.31XA Abrasion of nose, initial encounter
CPT/HCPCS: 70450; 72125; 73564; 99283

== ENCOUNTER 2025-03-30 15:08 | Emergency (ER) | payer MEDICARE, SELFPAY ==
[2025-03-30] VITALS (15 sets, daily range): BP systolic 156–212; BP diastolic 79–106; PULSE 52–101; RESP 14–20; TEMP 36.2–36.5; O2SAT 98–100; BMI 22.6
--- NOTE | 2025-03-30 15:08 | EKG12_ITS ---
Test Reason : STROKE TEAM Blood Pressure : */* mmHG Vent. Rate : 69 BPM Atrial Rate : 69 BPM P-R Int : 150 ms QRS Dur : 88 ms QT Int : 430 ms P-R-T Axes : 60 35 10 degrees QTcB Int : 460 ms Normal sinus rhythm Nonspecific ST and T wave abnormality Abnormal ECG Confirmed by Jacinto Sinha ([id number]), book editor BARTOLO CORMIER ([id number]) on 04/01/2025 10:17:54 AM Referred By: Confirmed By: Jacinto Sinha
--- NOTE | 2025-03-30 15:08 | CT_ITS ---
PROCEDURE: STROKE BRAIN/HEAD WITHOUT CONT N/A REASON FOR EXAM: NEURO DEFICIT, ACUTE, STROKE SUSPECTED TECHNIQUE: Procedure Code: CTBR.ST Modality: CT Procedure: STROKE BRAIN/HEAD WITHOUT CONT Coronal and Sagittal reconstruction series were provided. One or more dose reduction techniques were used (e.g., Automated exposure control, adjustment of the mA and/or kV according to patient size, use of iterative reconstruction technique. RADIATION DOSE SUMMARY: CTDlvol: 44.99 mGy DLP: 829.85 mGycm COMPARISON: PRIOR STUDY DATED DECEMBER 06, 2024. FINDINGS: Brain: THERE IS EVIDENCE OF A 2.6 CM BY 1.5 CM BY 3 CM ACUTE THALAMIC HEMATOMA ON THE LEFT SIDE. MILD DEGREE OF SURROUNDING EDEMA AND MASS EFFECT. CSF Spaces: Mild generalized cerebral atrophy Sinuses/Mastoids: Clear at visualized levels Bones: CT/STROKE Brain/Head without Cont IMPRESSION: ACUTE 2.6 CM 1.5 CM 3 CM THALAMIC HEMATOMA. Red Alert: LEFT Thalamic hematoma The critical findings in the findings and impression above were relayed directl y by me by telephone to Parmjit Bingham on 03/30/2025 at 3:25 pm with readback verification. Reading Location: [id number]
--- NOTE | 2025-03-30 15:09 | CT_ITS ---
PROCEDURE: STROKE CTA HEAD AND NECK W/CON 03/30/2025 REASON FOR EXAM: NEURO DEFICIT, ACUTE, STROKE SUSPECTED TECHNIQUE: Procedure Code: CTCTA.ST.HN Modality: CT Procedure: STROKE CTA HEAD AND NECK W/CON Multiplanar Sagittal and Coronal images were obtained. 3D post processing was performed CONTRAST: Isovue 370 VOLUME: 100 mL One or more dose reduction techniques were used (e.g., Automated exposure control, adjustment of the mA and/or kV according to patient size, use of iterative reconstruction technique). RADIATION DOSE SUMMARY: CTDlvol: 20.5 mGy DLP: 567.18 mGycm COMPARISON: Prior CT scan of the head done earlier in the day. FINDINGS: Aortic Arch: Normal size and branching pattern. Mild atherosclerotic plaque. Brachiocephalic and Subclavians: Mild atherosclerotic plaque without significant stenosis. RIGHT Carotid: Right CCA: Unremarkable. Right ICA: Unremarkable. Right ECA: Unremarkable. LEFT Carotid: Left CCA: Unremarkable. Left ICA: Unremarkable. Left ECA: Unremarkable. Vertebrals: Codominant. Arise from the subclavians. Both vertebrals form the basilar. RIGHT Vertebral: Unremarkable. LEFT Vertebral: Unremarkable. Anatomy: There is evidence of hematoma in the left thalamus with evidence of active bleed within it. There is surrounding mass effect. Aneurysm or avm: Possible arteriovenous malformation in the left thalamus. Anterior cerebral arteries: Unremarkable: Middle cerebral arteries: Unremarkable. Basilar artery: Unremarkable. Posterior cerebral arteries: Unremarkable. Other major branches of the posterior circulation: Unremarkable. Major venous structures: Unremarkable. Other findings: Neck: Lungs: Bones: CT/STROKE CTA Head AND Neck W/Con IMPRESSION: Left thalamic hematoma. Questionable vascular malformation with evidence of ac tive bleed within the hematoma. Reading Location: [id number]
--- NOTE | 2025-03-30 15:09 | EX.ED.DYSGE1 ---
HPI History of Present Illness Chief Complaint: Stroke Alert [facility] Medical History Osteoporosis Home Medications Medication Instructions Recorded Last Taken Type lidocaine 5 % topical patch 1 patch topical DAILY #15 ea 03/20/24 Unknown Rx (Lidoderm) Allergy/AdvReac Type Severity Reaction Status Date / Time sulfamethoxazole (From Allergy Rash Verified 12/06/24 19:44 Septra) trimethoprim (From Septra) Allergy Rash Verified 12/06/24 19:44 meloxicam AdvReac Other Verified 12/06/24 19:44 Surgical History History of lumbar fusion Social History household members: spouse and none Smoking Status: Never smoker substance use type: does not use EXAM Physical Exam Const Vital Signs: 03/30/25 15:08 03/30/25 15:09 03/30/25 15:19 Temperature 97.2 F L Temperature Source Temporal Pulse Rate 62 Respiratory Rate 16 Respiratory Effort Respiratory Depth Respiratory Pattern Blood Pressure 156/86 H Blood Pressure Mean 109 Blood Pressure Source Blood Pressure Position Blood Pressure Location Pulse Ox 100 Oxygen Delivery Method Room Air 03/30/25 15:31 03/30/25 15:33 03/30/25 15:40 Temperature Temperature Source Pulse Rate 101 H 85 Respiratory Rate 19 H 14 Respiratory Effort Non-Labored Respiratory Depth Shallow Respiratory Pattern Apneustic Blood Pressure Blood Pressure Mean Blood Pressure Source Blood Pressure Position Blood Pressure Location Pulse Ox 100 100 Oxygen Delivery Method 03/30/25 15:45 03/30/25 15:51 03/30/25 15:54 Temperature Temperature Source Pulse Rate 84 83 Respiratory Rate 16 14 Respiratory Effort Respiratory Depth Respiratory Pattern Blood Pressure 212/106 H 212/106 H Blood Pressure Mean 135 141 Blood Pressure Source Monitor Blood Pressure Position Semi-Fowlers Blood Pressure Location Right Arm Pulse Ox 100 100 Oxygen Delivery Method Mechanical Ventilator 03/30/25 15:56 03/30/25 16:00 03/30/25 16:09 Temperature Temperature Source Pulse Rate 69 71 54 L Respiratory Rate 14 14 14 Respiratory Effort Respiratory Depth Respiratory Pattern Blood Pressure 187/94 H 157/79 H Blood Pressure Mean 122 103 Blood Pressure Source Blood Pressure Position Blood Pressure Location Pulse Ox 100 100 100 Oxygen Delivery Method Mechanical Ventilator Mechanical Ventilator [facility] [place] Narrative Medical decision making narrative: HISTORY OF PRESENT ILLNESS: Chief complaint: Stroke alert 74-year-old female history of hypokalemia, CVA, migraine presents with concern for stroke. She does not provide history as she is somnolent and responds only to commands. Per EMS patient was at [place] was seen veering to the left and fell. There is no report of obvious head trauma but EMS notes right sided deficits. Stroke team was called and route. They deny history of reported blood thinners. They state her blood sugar was acceptable. EMS noted other vitals were acceptable. REVIEW OF SYSTEMS: Unable to obtain review of system secondary to acute of condition PHYSICAL EXAM: Nursing triage notes reviewed, Vital signs reviewed Constitutional: please see [facility] HENT: MMM Eyes: Pupils equal round and reactive to light, Extraocular muscles intact Neck: No stridor, no JVD, full neck ROM Lungs: Clear to auscultation, No wheezing or rales. No increased work of breathing, no conversational dyspnea, no accessory muscle use, no nasal flaring. No respiratory distress noted Heart: Regular rate and rhythm, No murmurs, No rubs and No gallops, 2+ distal pulses (radial, femoral, posterior tibial) in all extremities Abdomen: Soft, there is no tenderness, rigidity, rebound or guarding, no obvious peritoneal signs, no palpable pulsatile abdominal masses, no auscultated abdominal bruit : No CVAT Extremities: No edema Neuro: somnolent, follows some commands, right upper and lower extremity weakness, initial NIH 19. ICH score 2. Skin: No rash or lesions noted MEDICAL DECISION MAKING: Chief Complaint: please see [facility] External records reviewed: Reviewed prior imaging studies: Reviewed CT scan of the head from November 2024 which showed no acute process in the brain Factors affecting care: As per HPI Social determinants of health: none History obtained from others EMS Consults: Stroke radiology (Dr. Solis) noted ICH, [facility] (Dr. Loaiza) - discussed case, accepted for transfer [facility] Narrative: Patient was initially hemodynamically stable, afebrile, nontoxic-appearing. Patient was somnolent. Patient obvious right-sided deficits. I considered the following differential diagnosis: Acute CVA, ICH, focal seizure, Sims's palsy, Stroke alert order set used. Wet read by radiology transporter noted obvious ICH. Given the patient's somnolent state and concern for unexpected but abrupt airway compromise she was intubated. Please see below procedure note. After intubation the patient's head of bed was kept greater than 30 degrees, blood pressure was controlled with a systolic blood pressure target of less than 140, Keppra was given for seizure prophylaxis. OG, Denny placed. I discussed the case with the nearest trauma center given report of fall. ED attending at [facility] excepted the patient in transfer. ALL IMAGES (IF OBTAINED) HAVE BEEN PERSONALLY REVIEWED AND INTERPRETED BY MYSELF. CT scan of the brain was read reviewed personally so showed no obvious left side intraparenchymal ICH. Radiologist agreed my interpretation also noted. Mild degree of surrounding edema and mass effect CTA of the head and neck with contrast showed left, hematoma questional vascular formation Postintubation chest x-ray showed shallow tube in the right mainstem bronchus. Tube was retracted approxi-2 cm with more appropriate positioning. OG tube also in appropriate position. Lungs overall clear with no signs of cardiomegaly or pneumonia EKG with normal sinus rhythm at 69, normal axis, normal intervals, no obvious STEMI arrhythmia noted Labs pending at this time During the patient ED course of blood pressure remained above 140 systolic so she was given 20 mg IV labetalol followed by 10 mg of IV hydralazine. We have a low threshold to begin nicardipine. At this point transport arrived and she was transported in guarded condition to the nearest trauma center to undergo definitive neurosurgical and trauma care. The procedure was performed by myself. Indications: Somnolence, intracranial hemorrhage Procedure Description: Patient was preoxygenated with BVM, he was in supine position. Video laryngoscopy was used with the aid of a 4.0 hyper-angulated Mac blade. Obtained a grade 1 view of the cords. Patient intubated successfully on first attempt. Postintubation pulse ox remained 100%. No immediate complications Post-Procedure Assessment: Tracheal intubation was confirmed with breath sounds auscultated equally bilaterally; appropriate color change with end tidal CO2 detector and waveform capnography. The patient tolerated the procedure well with no immediate complications. The patient and/or family, caregivers express understanding. The patient and/or family, caregivers agrees with the plan. Shared decision making: I will have a discussion with the patient and or visitors regarding risk/benefits of further testing or admission. They will be made aware of of the risk/benefits inherent in this decision they will be given the opportunity to voice understanding. Total critical care time today provided was at least 60 minutes. This excludes separately billable procedures. Critical care time (if documented) is secondary to the patient having high probability of clinically significant/life threatening deterioration in the patient's condition which required my urgent intervention. Impression: 1. Altered mental status 2. Acute intracranial hemorrhage 3. Fall Dispo: Transfer to [facility] This note was generated with [employer] dictation software. It may contain incorrect words, spelling, and punctuation that were not noted in review of the chart prior to signing. Lab Data Labs: Laboratory Results - last 24 hr 03/30/25 15:50 WBC 3.2 L RBC 4.01 L Hgb 11.4 L Hct 34.5 L MCV 86.0 MCH 28.4 MCHC 33.0 RDW Std Deviation 41.7 RDW Coeff of Yashira 13.2 Plt Count 264 MPV 9.3 Immature Gran % (Auto) 0.300 Neut % (Auto) 26.9 L Lymph % (Auto) 58.3 H Sac % (Auto) 8.8 Eos % (Auto) 4.4 Baso % (Auto) 1.3 H Absolute Neuts (auto) 0.9 L Absolute Lymphs (auto) 1.86 Nucleated RBC % 0 ABG Data ABG results: ABG 03/30/25 16:11 Specimen Type ART Sample Site L Brach pH 7.48 H Bicarbonate Actual 25.1 Total CO2 26 Base Excess 2 O2 Saturation 100 H O2 % 40.0 ABG pCO2 34.0 L ABG pO2 168 H Respiration Rate 14 O2 Delivery Device Adult Vent Vent Mode AC Tidal Volume 450.0 POC PEEP 5 Radiography Diagnostic Testing: Clinical Impression(s) from Imaging Studies Brain CT 03/30/25 15:08 IMPRESSION: ACUTE 2.6 CM 1.5 CM 3 CM THALAMIC HEMATOMA. Red Alert: LEFT Thalamic hematoma The critical findings in the findings and impression above were relayed directly by me by telephone to Parmjit Bingham on 03/30/2025 at 3:25 pm with readback verification. Reading Location: [id number] Head/Neck CTA 12/15/25 15:09 IMPRESSION: Left thalamic hematoma. Questionable vascular malformation with evidence of active bleed within the hematoma. Reading Location: [id number] Chest X-Ray 03/30/25 15:40 IMPRESSION: The 1st image shows the endotracheal tube with tip at the very proximal right mainstem bronchus. The 2nd one shows the tip approximately 1 cm above the jossie. Nasogastric tube seen, with proximal port at or above the esophagogastric junction. Repositioning may be considered. Lungs are hypoinflated, but without acute pneumonic process identified. No pleural effusion or pneumothorax is seen. The cardiomediastinal silhouette is within the normal range. No acute osseous process is seen Reading Location: [place] [address] Chest X-Ray 03/30/25 15:45 IMPRESSION: The 1st image shows the endotracheal tube with tip at the very proximal right mainstem bronchus. The 2nd one shows the tip approximately 1 cm above the jossie. Nasogastric tube seen, with proximal port at or above the esophagogastric junction. Repositioning may be considered. Lungs are hypoinflated, but without acute pneumonic process identified. No pleural effusion or pneumothorax is seen. The cardiomediastinal silhouette is within the normal range. No acute osseous process is seen Reading Location: [place] [address] Discharge Plan Triage Chief Complaint: Stroke Alert ED Provider: Parmjit Bingham Dx/Rx/DC Orders Prescriptions: No Action lidocaine [Lidoderm] 5 % adhesive patch,medicated 1 patch topical DAILY Qty: 15 0RF Rx Instructions: leave on most painful area for up to 12 hrs Primary Care Provider: Frederic Luong Referrals: Frederic Luong MD [Primary Care Provider, Internal Medicine] Print Language: Mexican Disposition Disposition: Acute Care Hospital Discharge Location: [facility]
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
--- NOTE | 2025-03-30 15:40 | RAD_ITS ---
PROCEDURE: CHEST 1 VIEW (PORTABLE) 03/30/2025 REASON FOR EXAM: INTUBATION; ETT/OG PLACEMENT #2 TECHNIQUE: 2 AP portable supine images were obtained, one marked as endotracheal tube placement 1 and the other as endotracheal tube placement 2. COMPARISON: Chest x-ray of 03/30/2025 RAD/Chest 1 View (Portable) IMPRESSION: The 1st image shows the endotracheal tube with tip at the very proximal right m ainstem bronchus. The 2nd one shows the tip approximately 1 cm above the jossie. Nasogastric tube seen, with proximal port at or above the esophagogastric junct ion. Repositioning may be considered. Lungs are hypoinflated, but without acute pneumonic process identified. No pleural effusion or pneumothorax is seen. The cardiomediastinal silhouette is within the normal range. No acute osseous process is seen Reading Location: [place] [id number]
--- NOTE | 2025-03-30 15:45 | RAD_ITS ---
PROCEDURE: CHEST 1 VIEW (PORTABLE) 03/30/2025 REASON FOR EXAM: INTUBATION; ETT/OG PLACEMENT #2 TECHNIQUE: 2 AP portable supine images were obtained, one marked as endotracheal tube placement 1 and the other as endotracheal tube placement 2. COMPARISON: Chest x-ray of 03/30/2025 RAD/Chest 1 View (Portable) IMPRESSION: The 1st image shows the endotracheal tube with tip at the very proximal right m ainstem bronchus. The 2nd one shows the tip approximately 1 cm above the jossie. Nasogastric tube seen, with proximal port at or above the esophagogastric junct ion. Repositioning may be considered. Lungs are hypoinflated, but without acute pneumonic process identified. No pleural effusion or pneumothorax is seen. The cardiomediastinal silhouette is within the normal range. No acute osseous process is seen Reading Location: [place] [id number]
[2025-03-30] MEDS: levETIRAcetam IV 1,000 MG/100 ML BAG 400 MG IV (15:51)
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
[2025-03-30] MEDS: Propofol 10MG/Ml 1,000 MG/100 ML Bottle 3.2 MG CONT INF (15:54)
[2025-03-30 16:05] LABS: Hematocrit 34.5 % (37-47); Hemoglobin 11.4 g/dL (12.0-15.0); Immature Granulocytes Count 0.010 X10^3/uL (0.0-0.0); Mean Corp Hgb Conc 33.0 g/dL (32-36); Mean Corpuscular Volume 86.0 fL (81-99); Mean Platelet Vol. 9.3 fl (6.2-12.0); NRBC Flagged by Analyzer 0 % (0-5); POSITIVE DIFFERENTIAL YES; Platelet Count 264 K/mm3 (150-450); RBC Distribution Width CV 13.2 % (11.6-14.6); RBC Distribution Width SD 41.7 fl (35.1-43.9); Red Blood Count 4.01 M/mm3 (4.2-5.4); White Blood Count 3.2 K/mm3 (4.4-11.0)
--- NOTE | 2025-03-30 16:12 | ED.RN ---
ET 22CM AT THE LIP. REPEAT X-RAY COMPLETED FOR PLACEMENT. PROVIDER VERIFIED.
[2025-03-30 16:14] LABS: Base Excess 2 mmol/L (-2 to +2); FI02 40.0; PEEP 5; PO2 168 mmHG (75-100); RR 14; SITE L Brach; SO2 100 % (94-98)
[2025-03-30 16:37] LABS: Prothrombin Time (Protime)PT. 13.5 SECONDS (11.7-14.9)
[2025-03-30 16:38] LABS: Partial Thromboplast Time 36.3 Seconds (24.1-36.2)
[2025-03-30 16:44] LABS: Anion Gap 10 (5-15); BUN 8 mg/dL (4-19); BUN/Creat Ratio 13.5 RATIO (10-20); Calcium,Total 8.5 mg/dL (7.6-11.0); Carbon Dioxide 24.7 mmol/L (21.0-32.0); Chloride 103 mmol/L (98-108); Estimated Creatinine Clearance 45.66 ml/min (50-250); Glucose 78 mg/dL (70-99); Potassium 3.1 mmol/L (3.3-5.1); Troponin T High Sensitivity 11 ng/L (<=14)
--- OUTSIDE RECORDS SUMMARY | 2025-03-30 20:34 | XMS RPT_ITS | CCD ---
Author Organization [facility] Care Team Providers Care Oracle Hyperion Consultant Name Role Phone Frederic Luong MD Primary Care Provider Dr. Frederic Luong Primary Care Provider Dr. Frederic Luong Referring Provider Dr. Kvng Tejada Attending Provider [phone] Frederic Luong MD Primary Care Provider Frederic Luong MD Primary Care Provider [phone] PJ RYAN Admitting Unavailable PJ RYAN Attending Unavailable FREDERIC LUONG Primary Care Unavailable Tray CERTIFIED FIRST ASSISTANT.FERRY BOAT CAPTAIN, Moon M Unavailable Dr. Frederic Luong MD Primary Care Provider Dr. Reece Valera MD Emergency Provider Dr. Reeec Valera MD Attending Provider [phone] Chris Tam MD Emergency Provider Reece Valera Attending Unavailable Frederic Luong Primary Care Unavailable Chris Tam Attending Unavailable Frederic Luong Primary Care Unavailable Parmjit Bingham Attending Unavailable Frederic Luong Primary Care Unavailable Frederic Luong Primary Care Unavailable Patricia Pereyra Attending Unavailable Frederic Luong Referring Unavailable Yony Portillo Attending Unavailable Frederic Luong Primary Care Unavailable FREDERIC LUONG Primary Care Unavailable FREDERIC LUONG Attending Unavailable LUONG, ROB Primary Care Unavailable TRAY, MOON M Referring Unavailable HEBERT, ROB Primary Care Unavailable TRAY, MOON M Attending Unavailable HEBERT, ROB Primary Care Unavailable TRAY, MOON M Attending Unavailable LUONG, ROB Primary Care Unavailable TRAY, MOON M Attending Unavailable LUONG, ROB Primary Care Unavailable TRAY, MOON M Attending Unavailable HEBERT, ROB Primary Care Unavailable TRAY, MOON M Attending Unavailable LUONG, ROB Primary Care Unavailable TRAY, MOON M Attending Unavailable LUONG, ROB Primary Care Unavailable TRAY, MOON M Referring Unavailable HEBERT, ROB Primary Care Unavailable HEBERT, ROB Attending Unavailable LUONG, ROB Primary Care Unavailable TRAY, MOON M Attending Unavailable HEBERT, ROB Primary Care Unavailable Allergies Allergy Classification Reported Allergen(s) Allergy Type Date of Onset Reaction(s) Facility (20 sources) meloxicam; Translations: [MELOXICAM] Drug Allergy 3 Other: See Comments [facility] Work Phone: (20 sources) Sulfamethoxazole / Trimethoprim Drug Allergy 8 [facility] Work Phone: (8 sources) Sulfamethoxazole Drug Allergy 2 [facility] (8 sources) Trimethoprim Drug Allergy 2 [facility] (20 sources) Sulfamethoxazole / Trimethoprim; Translations: [SULFAMETHOXAZOLE-TR IMETHOPRIM] Drug Allergy 4 Hives [facility] Work Phone: (2 sources) venlafaxine; Translations: [VENLAFAXINE] Drug Allergy 5 Other: See Comments [facility] (1 source) meloxicam Drug Allergy 5 [facility] (1 source) Sulfamethoxazole Drug Allergy 5 [facility] (1 source) Trimethoprim Drug Allergy 5 [facility] Medications Current Medications Medication Drug Class(es) Dates Sig (Normalized) Sig (Original) acetaminophen 325 mg / HYDROcodone bitartrate 5 mg oral tablet (14 sources) Opioid Agonist Start: 03-24-2024 End: 03-27-2024 take 1 tablet by mouth every eight hours as needed for pain HYDROcodone-aceta minophen (NORCO) 5-325 mg per tablet Indications: Rib [...] 6 HOURS NEEDED as needed for Pain 12 3 0 December 06, 2024 Fracture of patella Start: 08-31-2023 End: 09-07-2023 take 1 tablet [...] NEEDED as needed for Pain 8 3 0 December 30, 2023 Dental abscess Periapical abscess without sinus Start: 07-01-2023 take 1 tablet by ron th every six hours Hydrocodone-Acetaminophen Active 1 TABLE T PO EVERY 6 HOURS 10 3 July 01, 2023 Start: 07-17-2022 End: 07-22-2022 [...] 30minutes. amitriptyline hydrochloride 10 mg oral tablet (8 sources) Tricyclic Antidepressant Start: 07-31-19 End: 12-13-19 take 10-20 mg by mouth every twenty-four hours as needed amitriptyline (ELAVIL) 10 mg tablet Take 1-2 tablets by mouth at bedtime as needed for sedation. 30 tablet 5 12/12/2024 Active amoxicillin 875 mg oral tablet (1 source) Penicillin-class Antibacterial Start: 12-29-19 End: 01-05-20 take 1 tablet by mouth twice daily amoxicillin (AMOXIL) 875 mg tablet Indications: Pain, dental Take 1 tablet by mouth two times a day for 7 days. 14 tablet 12/29/2023 01/05/2024 Active atorvastatin 20 mg oral tablet (9 sources) HMG-CoA Reductase Inhibitor Start: 05-28-19 take 1 tablet by mouth once daily atorvastatin (LIPITOR) 20 mg tablet Take 1 tablet by mouth once daily. 90 tablet 3 05/28/2024 Active cephalexin 500 mg oral capsule (4 sources) Cephalosporin Antibacterial Start: 10-19-19 take 1 capsule by mouth every six hours Cephalexin 500 mg capsule Active 500 mg PO EVERY 6 HOURS 28 0 October 18, 2024 12:00am Start: 09-07-2023 End: 09-12-2023 take 1 capsule by mouth four times daily cephALEXin (KEFLEX) 250 mg capsule Indications: Trigger middle finger of right hand Take 1 capsule by mouth four times daily for 5 days. 20 capsule 0 09/07/2023 09/12/2023 Active clindamycin 150 mg oral capsule (2 sources) Lincosamide Antibacterial Start: 12-30-2023 take 3 capsules by mouth three times daily Clindamycin Hcl 150 mg capsule Active 450 mg PO THREE TIMES A DAY 63 7 0 December 30, 2023 12:00am cyclobenzaprine hydrochloride 5 mg oral tablet (18 sources) Muscle Relaxant Start: 03-20-2024 take 1 tablet by mouth three times daily as needed for muscle spasms Cyclobenzaprine 5 mg tablet Active 5 mg PO THREE TIMES A DAY as needed for muscle spasm 12 4 March 20, 2024 1:00am Start: 07-15-2022 End: 06-04-2023 take 1 tablet by mouth three times daily as needed for muscle spasms Cyclobenzaprine 10 mg tablet Active 10 mg PO THREE TIMES A DAY as needed for Muscle Spasm July 15, 2022 12:00am Comment on above: Take 10 mg by mouth three times daily as needed. diclofenac sodium 75 mg delayed release oral tablet (16 sources) Nonsteroidal Anti-inflammatory Drug Start: 03-24-20 End: 04-30-19 take 1 tablet by mouth twice daily for pain diclofenac, EC, (VOLTAREN) 75 mg EC tablet Take 1 tablet by mouth two times a day. For pain/inflammation. Take with food. 30 tablet 04/30/2024 Active ergocalciferol 1.25 mg oral capsule (10 sources) Provitamin D2 Compound Start: 05-28-19 take [...] by mouth. lidocaine 0.05 mg/mg medicated patch (2 sources) Antiarrhythmic, Amide Local Anesthetic Start: 2023 Lidocaine (Lidoderm) 5 % adhesive patch,medicated Active 1 NMA TOPICAL DAILY 15 0 March 20, 2024 1:00am leave on most [...] 01/28/2024 Active ofloxacin 3 mg/ml ophthalmic solution (8 sources) Quinolone Antimicrobial Start: 08-12-2021 take 0.3 drop(s) into the eye(s) every six hours Ofloxacin 0.3 % drops Active 1 NMA LEFT EYE EVERY 6 HOURS August 12, 2021 12:00am polyethylene glycol 3350 637975 mg / potassium chloride 2980 mg / sodium bicarbonate 6720 mg / sodium chloride 5840 mg / sodium sulfate 91064 mg powder for oral solution (1 source) Osmotic Laxative Start: 07-13-2022 End: 07-13-2022 peg 3350-electrolytes (COLYTE) 240-22.72-6.72 -5.84 gram solution Indications: Special screening for malignant neoplasms, colon Take 4,000 mL by mouth one time only for 1 dose. 4000 mL 0 07/13/2022 07/13/2022 Active Comment on above: Take 4,000 mL by [facility] one time only for 1 dose. prednisoLONE acetate 10 mg/ml ophthalmic suspension (2 sources) Corticosteroid Start: 08-12-2021 Prednisolone Acetate Active 1 DRP LEFT EYE EVERY 6 HOURS August 12, 2021 10:37am Start: 08-12-2021 Prednisolone A cetate Active DRP August 12, 2021 10:37am sertraline 50 mg oral tablet (1 source) Serotonin Reuptake Inhibitor Start: 12-12-2024 take 0.5 tablet by mouth once daily, then take 1 tablet by mouth once daily sertraline (ZOLOFT) 50 mg tablet Take 1/2 tablet (25 mg) daily by mouth for the first two weeks, then take 1 tablet (50 mg) daily 30 tablet 12/12/2024 Active Completed/Discontinued Medications Medication Drug Class(es) Dates [...] Comment on above: Take 1 capsule by [facility] three times daily as needed for cough. celecoxib 200 mg oral capsule (6 sources) Nonsteroidal Anti-inflammatory Drug Start: 09-05-2022 End: 06-04-2023 take 1 capsule by mouth twice daily celecoxib (CELEBREX) 200 mg capsule Indications: Right hip pain Take 1 capsule by mouth twice daily. 60 capsule 2 09/05/2022 06/04/2023 Discontinued Comment on above: Take 1 capsule by [facility] twice daily. doxycycline hyclate 100 mg oral tablet (2 sources) Tetracycline-class Drug Start: 07-02-2021 End: 07-09-2021 take 1 tablet by mouth twice daily doxycycline (VIBRA-TABS) 100 mg tablet Take 1 tablet by mouth twice daily for 7 days. 14 tablet 07/02/2021 07/09/2021 Comment on above: Take 1 tablet by [facility] twice daily for 7 days. DULoxetine [...] Comment on above: Take 1 capsule by [facility] daily at bedtime for 60 days. 2 ml ketorolac tromethamine 30 mg/ml injection (9 sources) Nonsteroidal Anti-inflammatory Drug, Cyclooxygenase Inhibitor Start: [...] 10 mg oral tablet (16 sources) Start: 06-04-19 End: 01-21-20 take 4 tablets by mouth once daily, [...] THEN 1 TABLET DAILY FOR 2 DAYS. 24 hr propranolol hydrochloride 60 mg extended release oral capsule (6 sources) beta-Adrenergic Manjinder Start: 08-28-19 End: 12-13-19 take 1 capsule by mouth once daily propranolol ER (INDERAL LA) 60 mg 24 hr capsule Take 1 capsule by mouth once daily. 30 capsule 1 08/27/2024 12/12/2024 Discontinued (Discontinued by Patient) 24 hr venlafaxine 150 mg extended release oral capsule (9 sources) Serotonin and Norepinephrine Reuptake Inhibitor Start: 07-31-19 End: 12-13-19 take 1 capsule by mouth once daily venlafaxine ER (EFFEXOR XR) 150 mg 24 hr capsule Take 1 capsule by mouth once daily. 90 capsule 3 07/30/2024 12/12/2024 Discontinued (Discontinued by Patient) Start: 06-25-2024 End: 07-30-2024 take 1 capsule by mouth once daily venlafaxine ER (EFFEXOR XR) 75 mg 24 hr capsule Take 1 capsule by mouth once daily. 30 capsule 1 06/25/2024 07/30/2024 Discontinued Problems Active Problems Problem Classification Problem Date [...] 03-24-2024 05-04-2015 Chronic Blindness and vision defects (8 sources) Diplopia; Translations: [Diplopia] 01-30-2015 Episodic Complications of surgical procedures or medical care (5 sources) Postoperative complication; Translations: [Postoperative bleeding from mouth] 04-13-2023 Episodic Diseases of mouth; excluding dental (4 sources) Sialoadenitis; Translations: [Sialoadenitis, unspecified] 10-18-2024 Episodic Disorders of lipid metabolism (20 sources) Mixed hyperlipidemia; Translations: [Mixed hyperlipidemia] Onset: 09-29-2011 09-29-2011 Chronic Disorders of teeth and jaw (3 sources) Gingivitis; Translations: [Chronic gingivitis, plaque induced] Onset: 10-23-2024 10-18-2024 Chronic E Codes: Fall (5 sources) Fall; Translations: [Unspecified fall, initial encounter] 10-17-2023 Episodic Fluid and electrolyte disorders (8 sources) Hypokalemia; Translations: [Hypokalemia] 11-16-2018 Episodic Fracture of lower limb (1 source) Fracture of patella; Translations: [Unspecified fracture of unspecified patella, initial encounter for closed fracture] 12-06-2024 Episodic Genitourinary symptoms and ill-defined conditions (20 sources) Female stress incontinence; Translations: [Stress incontinence (female) (male)] Onset: 10-21-2013 10-21-2013 Chronic Nutritional deficiencies (20 sources) Vitamin D deficiency; Translations: [Vitamin D deficiency, unspecified] Onset: 09-18-2012 09-18-2012 Chronic Osteoarthritis (11 sources) Osteoarthritis; Translations: [Unspecified osteoarthritis, unspecified site] 08-20-2021 Chronic Osteoporosis (20 sources) Senile osteoporosis; Translations: [Age-related osteoporosis without current pathological fracture] Onset: 08-11-2022 08-11-2022 Chronic Other bone disease and musculoskeletal deformities (8 sources) Osteopenia; Translations: [Other specified disorders of [...] injuries and conditions due to external causes (7 sources) Hematoma; Translations: [Other injury of unspecified body region, initial encounter] 02-25-2022 Episodic Other injuries and conditions due to external causes (1 source) Encounter for examination and observation following other accident; Translations: [Encounter for examination and observation following other accident] Onset: 12-11-2024 Episodic Other lower respiratory disease (2 sources) Cough; Translations: [Cough] Episodic Other nervous system disorders (16 sources) Sims's palsy; 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] 11-15-2018 Episodic Other nervous system disorders (1 source) Abnormal gait; Translations: [Unspecified abnormalities of gait and mobility] Episodic Other nervous system disorders (2 sources) Tremor; Translations: [Tremor, unspecified] 08-27-2024 Episodic Other nervous system disorders (1 source) Tremor, unspecified; Translations: [Tremor] Onset: 12-12-2024 Episodic Other non-traumatic joint disorders (1 source) Pain in right hip joint; Translations: [Pain in right hip] 11-17-2022 Episodic Other non-traumatic joint disorders (3 sources) Effusion of right knee joint; Translations: [Effusion, right knee] 07-01-2023 Episodic Other non-traumatic joint disorders (4 sources) Pain in right knee; Translations: [Acute pain of right knee] 07-01-2023 Episodic Other nutritional; endocrine; and metabolic disorders (8 sources) Hypophosphatemia; Translations: [Other disorders of phosphorus metabolism] 11-16-2018 Chronic Residual codes; unclassified (20 sources) Insomnia; Translations: [Insomnia, unspecified] Onset: 05-04-2015 Resolved: 03-24-2024 05-04-2015 Episodic Residual codes; unclassified (2 sources) Pain; Translations: [Pain, unspecified] Episodic Residual codes; unclassified (1 source) Procedure not done; Translations: [Procedure and treatment not carried out, unspecified reason] 07-01-2023 Episodic Residual codes; unclassified (1 source) Insomnia, unspecified; Translations: [Insomnia, unspecified type] Onset: 12-12-2024 Episodic Sprains and strains (9 sources) Strain of knee; Translations: [Strain of unspecified muscle(s) and tendon(s) at lower leg level, right leg, initial encounter] 02-15-2021 Episodic Superficial injury; contusion (11 sources) Contusion of forearm; Translations: [Contusion of right forearm, initial encounter] 02-25-2022 Episodic Urinary tract infections (1 source) Acute urinary tract infection; Translations: [Urinary tract infection, site not specified] 04-27-2024 Episodic Past or Other Problems Problem Classification Problem Date Documented Da te Episodic/Chronic Disorders of teeth and jaw (8 sources) Toothache; Translations: [Other specified disorders of [...] 05-05-2015 Episodic Residual codes; unclassified (20 sources) Memory [...] Test Name Value Interpretation Reference Range Facility [facility] 12-12-2024 CNOV Office Visit (INTMWS ) RENATE INFANTE I ([id number]) 1950 F Date Time Provider Department 12/12/24 8:40 AM MOON FELIZ INTMWS During your visit today, we recorded the following information about you: Pulse Respiration Blood pressure Weight 68/minute 12/minute 136/80 54.6 kg Moon Feliz, CERTIFIED FIRST ASSISTANT.FERRY BOAT CAPTAIN 12/12/2024 9:30 AM Signed - Stop taking Effexor (venlafaxine) and propranolol as you are no longer on those medications. - Begin sertraline (Zoloft): take ? tablet once daily for 2 weeks, then increase to 1 full tablet once daily; the prescription has been sent to your pharmacy. - Continue amitriptyline at bedtime to help you relax and sleep: take 1 tablet; if after about an hour you still feel unsettled, you may take a second tablet, but avoid taking it too late at night to prevent next-day grogginess. - Return in 4 weeks for a follow-up to check how you?re doing on sertraline and to review any side effects. - If sertraline or other anxiety treatments do not provide enough relief, plan to see a psychiatrist for specialized medication management. Moon Feliz, CERTIFIED FIRST ASSISTANT.FERRY BOAT CAPTAIN 12/12/2024 9:40 AM Signed CC: Patient presents with: Follow Up: Anxiety HPI Recording using [employer] software for draft documentation of the visit was discussed with the patient/authorized goodwill representative; all questions welcomed and answered. Patient/authorized goodwill representative agreed to proceed The patient is a 74-year-old female with anxiety and depression, presenting for follow-up of medication management and evaluation of antidepressant-induced tremors. Patient was last seen for this August 2024. She was doing really well on this but had developed full body tremors. Since previous treatment with Cymbalta and Remeron were ineffective the decision was made to continue with Effexor and start propanolol to help control the tremors. Patient misunderstood and stopped the Effexor completely. She ran out of propanolol refills a few months ago. - Reports increased anxiety since discontinuation of Effexor - Full body tremors have resolved but does have some shaking in her hands when she has a panic attack or gets really nervous - She is taking Elavil at bedtime as needed to help her relax and sleep, somewhat effective but ran out of refills and has not taken in a while Review of Systems See HPI PAST MEDICAL [...] Tonsillectomy VAGINAL HYSTERECTOMY W/REMOVAL TUBES/OV 04/16/2012 ALLERGIES Venlafaxine, Meloxicam, and Septra [Sulfamethoxazole-Trim ethoprim] MEDICATIONS ergocalciferol 50,000 unit capsule (VITAMIN D2, DRISDOL) Take 1 capsule by mouth two times a week. atorvastatin (LIPITOR) 20 mg tablet Take 1 tablet by mouth once daily. alendro (more content not included)... Normal [facility] Brain/Head without Contrasto n 12-06-2024 Brain/Head without Contrast [facility] [address] [place] [id number] Brain/Head without Contrast MR#: [id number] Acct: [id number] Name: RENATE INFANTE Rep #: [id number] : 1950 F 74 From: Francis Miramontes DO PCP: Dr. Frederic Luong MD Status: REG ER Study: Brain/Head without Contrast Date of Exam: 11/15 07/08 Exam# [id number] Ordering Dr: Chris Tam MD PROCEDURE: BRAIN/HEAD WITHOUT CONTRAST 12/06/2024 REASON FOR EXAM: TRAUMA Fell on cement. Abrasions to face and headache. Initial encounter. TECHNIQUE: BRAIN/HEAD WITHOUT CONTRAST Coronal and Sagittal reconstruction series were provided. One or more dose reduction techniques were used (e.g., Automated exposure control, adjustment of the mA and/or kV according to patient size, use of iterative reconstruction technique. RADIATION DOSE SUMMARY: CTDlvol: 44.99 mGy DLP: 812.98 mGycm COMPARISON: CT brain March 20, 2024 FINDINGS: Brain: No intra-axial or extra-axial hemorrhage. No mass, mass effect or midline shift. No acute ischemia infarct identified CSF Spaces: Ventricles and sulci are age-appropriate Sinuses/Mastoids: Single anterior ethmoid air cell opacified. Mastoid air cells and paranasal sinuses are predominantly clear otherwise. No sinus fracture identified. Bones: No skull fracture. Small subcutaneous soft tissue hematoma in the mid forehead. No underlying fracture. CT/Brain/Head without Contrast IMPRESSION: Superficial forehead injury. No acute process in the brain. Reading Location: [facility] CC: Dr. Chris Tam MD; Dr. Frederic Luong MD Tools Developer: Signed Normal [facility] Emergency Department Summary on 12-06-2024 Emergency Department Summary [facility] Medical Records Department [address] [place] [id number] Emergency Department Summary 12/06/24 MR#: [id number] Acct: [id number] Name: RENATE INFANTE Rep #: [id number] : 1950 74 From: Chris Tam MD PCP: Dr. Frederic Luong MD Status:REG ER Location: ED HPI HPI - Fall History of Present Illness Chief Complaint: Fall Narrative Narrative: 74-year-old male presents with injury to her head and neck into her right knee when she was getting out of her car. She states she was going to drug [place], tripped and fell as she was getting out of her car and landed face first onto the pavement. She hit her knee on the right as well. She never mated into drug [facility]. She complains of right knee pain and swelling as well as abrasions to her face. She does not take blood thinners but her daughter states that she "bleeds easily". She believes that her tetanus immunization is current, less than 5 years. [facility] Medical History Osteoporosis Home Medications [...] / Time sulfamethoxazole (From Allergy Rash Verified 12/06/24 19:44 ) trimethoprim (From ) Allergy Rash Verified 12/06/24 19:44 meloxicam AdvReac Other Verified 12/06/24 19:44 Surgical History History of lumbar fusion Social History household members: spouse and none Smoking Status: Never smoker substance use type: does not use ROS ROS ED ROS Narrative Review of systems positive for right knee pain and swelling. Abrasions to face. No loss of consciousness. Positive mechanical fall onto pavement. Positive headache and neck pain bilaterally. Left greater than right. EXAM Physical Exam Narrative Exam Narrative: GCS 15. ABCs are intact. Cardiovascular examination reveals a regular rate and rhythm. Lungs are clear to auscultation bilaterally. Abdomen is soft and nontender without guarding or rebound. Positive bowel sounds. Examination of the right knee shows diffuse swelling and mild tenderness of the right patellar area. No crepitance. Multiple abrasions to forehead, nose, and chin. PERRL, EOMI. No nasal septal hematoma. Neck soft and supple without vertebral point tenderness or bony step-off. Mild tenderness palpation bilateral paraspinal musculature left greater than right. Const Vital Signs: 12/06/24 19:44 12/06/24 20:39 Temperature 97.8 F Temperature Source Temporal Pulse Rate 91 Respiratory Rate 18 Respiratory Effort Normal Non-Labored Respiratory Depth Normal Respiratory Pattern Normal Blood Pressure 141/76 H Blood Pressure Mean 97 Pulse Ox 97 Oxygen Delivery Method Room Air MDM MDM MDM Narrative Medical decision making narrative: Differential diagnosis includes but not limited to knee contusion versus fracture. RN ordered x- rays obtained and interpreted by myself independently as incomplete patellar fracture with small positive ffusion. I reviewed the radiology report which confirms my independent interpretation. She states her tetanus immunization is current. Given her closed head injury without loss of consciousness, as well as neck pain, concern is for cervical strain versus fracture and closed head injury versus intracranial hemorrhage. CT of the brain and of the C-spine were obtained as well prior to her receiving any analgesia to make sure that she does not need to be transferred for intracranial hemorrhage. Her CT of the C-spine and brain are currently pending. Patient will be signed out to Dr. Mazin Yu (more content not included)... Normal [facility] Knee 4 or More Viewson 12-06 Knee 4 or More Views [facility] [address] [place] [address] Knee 4 or More Views MR#: [id number] Acct: [id number] Name: RENATE INFANTE Rep #: [id number] : 1950 F 74 From: Francis Miramontes DO PCP: Dr. Frederic Luong MD Status: PRE ER Study: Knee 4 or More Views Date of Exam: 12/06/24 Exam# [id number] Ordering Dr: Marcus Phillips PROCEDURE: KNEE 4 OR MORE VIEWS 12/06/2024 REASON FOR EXAM: FALL Initial encounter. TECHNIQUE: KNEE 4 OR MORE VIEWS Laterality: Right COMPARISON: Radiograph of 02/07/2021 and 07/01/2023 FINDINGS: Bones: On the lateral view of the knee, new lucency is seen through the patella which is an incomplete fracture most likely. Not appreciated on any of the other current views. Not appreciated on the prior exams. Joints: No dislocations Effusion: Moderate right knee effusion Soft tissues: Chondrocalcinosis of menisci. Cartilage loss of the lateral compartment of the femorotibial joint bleeding subchondral sclerosis. Modified outer bridge four. Other: RAD/Knee 4 or More Views IMPRESSION: Incomplete patellar fracture suspected. Moderate osteoarthritis. Moderate joint effusion. Reading [facility] CC: Dr. Frederic Luong MD; ED PHYSICIAN PROVIDER Tools Developer: Signed Normal [facility] Spine Cervical without Contr ason 12-06-2024 Spine Cervical without Contras [facility] [address] [place] [address] Spine Cervical without Contras MR#: [id number] Acct: [id number] Name: RENATE INFANTE Rep #: [id number] : 1950 F 74 From: Tha Dobson MD PCP: Dr. Frederic Luong MD Status: REG ER Study: Spine Cervical without Contras Date of Exam: 0 12/06/24 Exam# [id number] Ordering Dr: Chris Tam MD PROCEDURE: SPINE CERVICAL WITHOUT CONTRAS 12/06/2024 REASON FOR EXAM: TRAUMA, PAIN TECHNIQUE: SPINE CERVICAL WITHOUT CONTRAS Coronal and Sagittal reconstruction series were provided. One or more dose reduction techniques were used (e.g., Automated exposure control, adjustment of the mA and/or kV according to patient size, use of iterative reconstruction technique. RADIATION DOSE SUMMARY: CTDlvol: 58 mGy DLP: 1053 mGycm FINDINGS: Normal cervical alignment. Normal vertebral body height. Disc space narrowing at C4-5 and C5-6 primarily. No fracture. Normal odontoid process. Disc space narrowing at C4-5. Left-sided foraminal narrowing at C5-6. Spinous processes intact. No spinous process deformity. No soft tissue mass CT/Spine Cervical without Contras IMPRESSION: Degenerative changes without fracture Reading Location: [facility] CC: Dr. Chris Tam MD; Dr. Frederic Luong MD Tools Developer: Signed Normal [facility] Emergency Department Summary on 10-18-2024 Emergency Department Summary [facility] Medical Records Department [address] [place] [address] Emergency Department Summary 10/18/24 MR#: [id number] Acct: [id number] Name: RENATE INFANTE Rep #: [id number] : 1950 74 From: Reece Valera MD [...] symptoms: Yes Recent Illness/Hospitalizatio n: No PFSH PFSH Medical History Osteoporosis Home Medications ???Medication ???Instructions [...] trauma, ora (more content not included)... Normal [facility] 08-27-2024 CNOV Office Visit (INTMWS ) RENATE INFANTE I ([id number]) 1950 F Date Time Provider Department 08/27/24 6:40 PM MOON FELIZ INTTaWS During your visit today, we recorded the following information about you: Pulse Respiration Blood pressure Weight 82/minute 12/minute 132/82 56.6 kg Moon Feliz, CERTIFIED FIRST ASSISTANT.FERRY BOAT CAPTAIN 08/27/2024 7:14 PM Signed CC: Patient presents with: Follow Up: Depression/insomnia HPI Recording using AkeLex software for draft documentation of the visit was discussed with the patient/authorized goodwill representative; all questions welcomed and answered. Patient/authorized goodwill representative agreed to proceed Renate is a [...] once daily. (more content not included)... Normal [facility] CNOVon 07-30-2024 CNOV Office Visit (INTMWS ) RENATE INFANTE I ([id number]) 1950 F Date Time Provider Department 07/30/24 6:00 PM MOON FELIZ INTMWS During your visit today, we recorded the following information about you: Pulse Respiration Blood pressure Weight 76/minute 14/minute 132/80 56.5 kg Moon Feliz APRN.FERRY BOAT CAPTAIN 07/30/2024 5:59 PM Signed We discussed your [...] before then, please contact me. Moon Feliz, SHILO.FERRY BOAT CAPTAIN 07/30/2024 6:05 PM Signed CC: Patient presents with: Follow Up: 1 month HPI Recording using AkeLex software for draft documentation of the visit was discussed with the patient/authorized goodwill representative; all questions welcomed and answered. Patient/authorized goodwill representative agreed to proceed Renate is a 73-year-old female presenting for follow-up on antidepressant medication. Renate was previously on duloxetine 40 mg, which was not effective in managing her anxiety and depression. Last month, her medication was switched to venlafaxine (Effexor) 75 mg. She reports that the new medication has helped to reduce her stress levels slightly, stating it "takes the edge off," but notes that the effect does not last throughout the day. She denies experiencing any side effects such as dizziness, lightheadedness, or nausea from the venlafaxine. She continues to struggle with anxiety and depression, though she notes that these symptoms have not worsened. Her sleep quality remains poor, averaging no more than 4 hours per night, which she considers a "good night." She attributes her insomnia to an inability [...] APPR UNI/BI (more content not included)... Normal [facility] CNOVon 06-25-2024 CNOV Office Visit (INTMWS ) RENATE INFANTE I ([id number]) 1950 F Date Time Provider Department 06/25/24 4:40 PM MOON FELIZ INTMWS During your visit today, we recorded the following information about you: Pulse Respiration Blood pressure Weight 80/minute 12/minute 136/80 54.9 kg Moon Feliz, CERTIFIED FIRST ASSISTANT.FERRY BOAT CAPTAIN 06/25/2024 5:21 PM Signed CC: Patient presents with: Follow Up: 1 month HPI Renate Mesa Naresh is a 73-year-old female presenting for follow-up on duloxetine management for anxiety and depression. The patient consented to the use of AkeLex software for draft documentation of the visit consistent with [facility]?s Notice of Privacy Practices. Anxiety and Depression: - No improvement in anxiety or depression symptoms after increasing duloxetine to 40 mg. - Denies any side effects from duloxetine. - Anxiety and depression symptoms remain "pretty bad." - Renate is experiencing significant stress related [...] is alert. (more content not included)... Normal [facility] CNOVon 05-28-2024 CNOV Office Visit (INTMWS ) RENATE INFANTE I ([id number]) 1950 F Date Time Provider Department 05/28/24 4:20 PM MOON FELIZ INTMWS During your visit today, we recorded the following information about you: Pulse Respiration Blood pressure Weight 64/minute 14/minute 136/80 56.3 kg Moon Feliz, CERTIFIED FIRST ASSISTANT.FERRY BOAT CAPTAIN 05/28/2024 4:43 PM Signed CC: Patient presents with: Follow Up: 4 weeks HPI Renate Moshe Naresh is a 73 year old female [...] High (L (more content not included)... Normal [facility] 25(OH)D3 SerPl-ncon 2024 25-hydroxyvitamin D3 [Mass/Vol] 11.4 ng/mL Low 31.0-80.0 [facility] Comment on above: Order Comment: Speci men Type: BLOOD SPECIMENOrdering Facility: [facility] Address: [address] [place] [address] Result Comment: Clas sification of 25 [place] Vitamin D status: Deficiency/Insufficiency: < or = 30 ng/ml. Sufficiency/Optimal Levels: 31-80 ng/mL Toxicity: > 100 ng/mL. Test performed by chemiluminescent immunoassay. Performed By: #### 1 989-3 ####[facility] [id number] [place] [address] [place] Lipid 1996 panelon 5 Cholesterol [Mass/Vol] 220 mg/dL High <200 [facility] Comment on above: Order Comment: Marva gerardo Type: BLOOD SPECIMENOrdering Facility: [facility] Address: [address] [place] [address] Result Comment: <200 mg/dL, Desirable 200-239 mg/dL, Borderline high >239 mg/dL, High Performed By: #### 2 4331-1 ####[facility] [id number] [address] OF [facility] Cholesterol in HDL [Mass/Vol] 55 mg/dL Normal >39 [facility] Comment on above: Order Comment: Marva gerardo Type: BLOOD SPECIMENOrdering Facility: [facility] Address: [address] [place] [address] Result Comment: 40-5 9 mg/dL, Acceptable >59 mg/dL, High: Negative risk factor for coronary heart disease <40 mg/dL, Low: Positive risk factor for coronary heart disease Performed By: #### 2 4331-1 ####[facility] [id number] [address] STATES OF [facility] Cholesterol in LDL [Mass/Vol] 148 mg/dL High <100 [facility] Comment on above: Order Comment: Marva gerardo Type: BLOOD SPECIMENOrdering Facility: [facility] Address: [address] [place] [address] Result Comment: <100 mg/dL, Optimal 100-129 mg/dL, Near optimal/above optimal 130-159 mg/dL, Borderline high 160-189 mg/dL, High >189 mg/dL, Very high Secondary prevention optimal LDL Cholesterol levels are recommended to be < 70 mg/dL Performed By: #### 2 4331-1 ####[facility] [id number] [address] [place] Cholesterol in LDL/Cholesterol in HDL [Mass ratio] 2.69 {ratio} High <2.54 [facility] Comment on above: Order Comment: Marva akin Type: BLOOD SPECIMENOrdering Facility: [facility] Address: [address] [place] [address] Result Comment: Alicia live: 1. National Cholesterol Education Program ATP III Guideline At-A-Glance Quick Desk Reference: National Heart, Lung, and Blood [place]. National Institutes of Health. 2001: NIH Publication No. 01-3305. 2. An International Atherosclerosis Society position paper: global recommendations for the management of dyslipidemia: executive summary, Atherosclerosis. 2014: 232(2):410-413. Performed By: #### 2 4331-1 ####[facility] [id number] [address] [address] [place] Cholesterol in VLDL [Mass/Vol] 17 mg/dL Normal <30 [facility] Comment on above: Order Comment: Speci men Type: BLOOD SPECIMENOrdering Facility: [facility] Address: [address] [place], [place] [address] Performed By: #### 2 4331-1 ####[facility] [id number] [place] [id number] [place] Cholesterol non HDL [Mass/Vol] 165 mg/dL High <130 [facility] Comment on above: Order Comment: Speci men Type: BLOOD SPECIMENOrdering Facility: [facility] Address: [address] [place] [address] Result Comment: <130 mg/dL, Optimal 130-159 mg/dL, Near optimal/above optimal 160-189 mg/dL, Borderline high 190-219 mg/dL, High >219 mg/dL, Very high Secondary prevention optimal non HDL Cholesterol levels are recommended to be <100 mg/dL Performed By: #### 2 4331-1 ####[facility] [id number] [place] [address] [place] Cholesterol.total/Ch olesterol in HDL [Mass ratio] 4.00 {ratio} Normal <5.10 [facility] Comment on above: Order Comment: Speci men Type: BLOOD SPECIMENOrdering Facility: [facility] Address: [address] [place] [id number] Performed By: #### 2 4331-1 ####[facility] [id number] [place] [id number] [place] FASTING TIME 12 hrs Normal [facility] Comment on above: Order Comment: Speci men Type: BLOOD SPECIMENOrdering Facility: [facility] Address: [address] [place], [place] [address] Performed By: #### 2 4331-1 ####[facility] [id number] [place] [address] [place] Triglyceride [Mass/Vol] 83 mg/dL Normal <150 [facility] Comment on above: Order Comment: Speci men Type: BLOOD SPECIMENOrdering Facility: [facility] Address: [address] [facility] [place] [address] Result Comment: <150 mg/dL, Normal 150-199 mg/dL, Borderline high 200-499 mg/dL, High >499 mg/dL, Very high Performed By: #### 2 4331-1 ####[facility] [id number] [place] [address] [place] CNOVon 05-16-2024 CNOV Office Visit (INTMWS ) RENATE INFANTE I ([id number]) 1950 F Date Time Provider Department 05/16/24 1:20 PM FREDERIC LUONG INTMWS During your visit today, we recorded the following information about you: Temperature Pulse Blood pressure Weight 98.7 degrees 71/minute 150/76 57.2 kg Frederic Luong MD 05/16/2024 2:07 PM Signed This note was created using [employer] Interactiveriter. Subjective Renate Infante is a 73 year [...] UROLOGY/URO GYNECOLOGY 3. Pelvic pain - ICD9: LXY9115, ICD10: R10.2 - CONSULT TO FEMALE UROLOGY/URO [...] Pelvic pain [R10.2] Order(s):UA DIP, URINE (POC) [3218890] Order #: [id number]. #:[id number] CONSULT TO FEMALE UROLOGY/URO GYNECOLOGY [6510151] Order #: [id number]: 1 FUTURE Prescriptions as of 05/16/2024 - [...] [M25.569] 03/05/2006 (more content not included)... [facility] RENATE INFANTE I ([id number]) 1950 F Date Time Provider Department 05/16/24 MOON FELIZ INTWS During your visit today, we recorded the following information about you: Ele Montoya 05/16/2024 10:22 AM Signed Patient calling in to let Moon know she is still having symptoms of a UTI. Please review and advise. Ele Montoya May 16, 2024 10:22 AM Moon Feliz APRN.FERRY BOAT CAPTAIN 05/16/2024 10:29 AM Signed Needs appointment Moon Feliz APRN.Zoila Be MA 05/16/2024 11:13 AM Signed Patient was notified and appointment was made Zoila Carranza MA Allergies As of Date: 05/16/2024 Noted Allergy Reaction MELOXICAM 10/21/2012 14 - Other: See Comments Comments: muscle tremors/spasms SEPTRA (SULFAMETHOXAZOLE-TRIM ETHO*06/04/2023 4 - Hives Date Reviewed: 04/30/2024 Reviewed by: Moon Feliz APRN.FERRY BOAT CAPTAIN - Fully Assessed Reason for Visit: Patient [...] Status:Closed by ZOILA CARRANZA on 05/16/24 Normal [facility] UA DIP, URINE (POC)on 2024 BILIRUBIN UA (POCT) Negative Negative [facility] CLARITY UA (POCT) Clear [facility] COLOR UA (POCT) Yellow [facility] GLUCOSE UA (POCT) Negative Negative mg/dL [facility] Hemoglobin Ql (U) Negative Negative [facility] KETONE UA (POCT) Negative Negative mg/dL [facility] LEUKOCYTES UA (POCT) Negative Negative [facility] NITRITE UA (POCT) Negative Negative [facility] PH UA (POCT) 7.0 4.5 - 8.0 [facility] Protein Ql (U) Negative Negative mg/dL [facility] SPECIFIC GRAVITY UA (POCT) 1.020 1.005 - 1.030 [facility] UROBILINOGEN UA (POCT) 0.2 Normal E.U./dL [facility] Location:[address], [place], [place], [address] [place] [address] POINT OF CARE [facility] CNOVon 04-30-2024 CNOV Office Visit (INTMWS ) RENATE INFANTE Moshe ([id number]) 1950 F Date Time Provider Department 04/30/24 4:20 PM MOON FELIZ INTMWS During your visit today, we recorded the following information about you: Pulse Respiration Blood pressure Weight 74/minute 14/minute 118/72 55.8 kg Height 1.515 m Moon Feliz, CERTIFIED FIRST ASSISTANT.FERRY BOAT CAPTAIN 04/30/2024 4:58 PM Signed Renate Mesa Naresh is a 73 year old female here [...] MD as PCP - General Moon Feliz APRN.FERRY BOAT CAPTAIN as Freight Dispatcher (Internal Medicine) [facility] Medical/Family history review [...] 74 Resp 14 Ht 151.5 cm (4' 11.65") Wt 55.8 kg (123 lb 0.3 oz) [...] 74 Resp 14 Ht 151.5 cm (4' 11.65") Wt 55.8 kg (123 lb 0.3 oz) [...] - Instructed patient to contact office or bohri-ml-oqgm after-hours promptly should condition worsen or any new symptoms appear. (more content not included)... Normal [facility] 04-27-2024 DANYEL Telephone (UCWSTR) RENATE INFANTE I ([id number]) 1950 F Date Time Provider Department 04/27/24 HARRISON FIGUEROA [facility] During your visit today, we recorded the following information about you: Harrison Figueroa APRN.SHOAIB 04/27/2024 12:38 PM Addendum Left message for [...] Encounter Status:Closed by HARRISON FIGUEROA on 04/27/24 [facility] Bacteria Ur Culton Bacteria identified Cx [...] , Intermediate >32 , Resistant >64 Abnormal [facility] Comment on above: Performed By: #### 6 30-4 ####[facility] [id number] [address] [address] [place] [facility] CNOVon 04-24-2024 CNOV Office Visit (UCW[facility] ) RENATE INFANTE I ([id number]) 1950 F Date Time Provider Department 04/24/24 12:45 PM AGUS GARCIA [facility] During your visit today, we recorded the following information about you: Temperature Pulse Respiration Blood pressure 97.2 degrees 72/minute 20/minute 151/77 Weight 57 kg Agus Garcia APRN.FERRY BOAT CAPTAIN 04/24/2024 1:28 PM Signed CC: Patient presents [...] having symptom (more content not included)... Normal [facility] UA DIP, URINE (POC)on 2024 BILIRUBIN UA (POCT) Negative Negative [facility] CLARITY UA (POCT) Clear [facility] COLOR UA (POCT) Yellow [facility] GLUCOSE UA (POCT) Negative Negative mg/dL [facility] Hemoglobin Ql (U) Negative Negative [facility] KETONE UA (POCT) Negative Negative mg/dL [facility] LEUKOCYTES UA (POCT) Negative Negative [facility] NITRITE UA (POCT) Negative Negative [facility] PH UA (POCT) 7.0 4.5 - 8.0 [facility] Protein Ql (U) Negative Negative mg/dL [facility] SPECIFIC GRAVITY UA (POCT) 1.015 1.005 - 1.030 [facility] UROBILINOGEN UA (POCT) 0.2 Normal E.U./dL [facility] Location:[facility], [address] [place] [address], [place], [address] [facility] POINT OF CARE [facility] CNOVon 03-24-2024 CNOV Office Visit (INTMWS ) RENATE INFANTE I ([id number]) 1950 F Date Time Provider Department 03/24/24 7:20 PM FREDERIC LUONG INTMWS During your visit today, we recorded the following information about you: Temperature Pulse Respiration Blood pressure 99.1 degrees 90/minute 14/minute 138/80 Weight 56.5 kg Frederic Luong MD 03/24/2024 8:04 PM Signed This note was created using Codesign Cooperativeter. Subjective Patient presents with: ER F/U: Fall [...] different NSAID. NSAID intolerance noted. One time [place] prescription was discussed. Risks of opioids were [...] Reason for Visit: ER F/U [41] Cmt: Fall 03/20/2024 Primary Visit Diagnosis:Rib contusion, left, subsequent encounter [S20.212D] Other Visit Diagnosis:Elevated blood pressure reading [R03.0] [...] Mgr [ (more content not included)... Normal [facility] 12 Lead EKGon 03-20-2024 12 Lead EKG [facility] [address] [place] [address] 12 Lead EKG 03/20/24 1222 MR#: [id number] Acct: [id number] Name: RENATE INFANTE Rep #: [id number] : 1950 73 From: Jacinto Sinha MD [...] ischemia Abnormal ECG Confirmed by Jacinto Sinha ([id number]), film or videotape editor BARTOLO CORMIER ([id number]) on 03/21/2024 10:45:46 AM Referred By: ZEN Confirmed By: Jacinto Sinha 03/21/24 1045 Date Jacinto Sinha MD CC: Dr. Yony Portillo DO; Dr. Frederic Luong MD Signed Normal [facility] Basic Metabolic Profile (BMP )on 03-20-2024 BUN/CRE 15.6 RATIO Normal 10-20 [facility] Comment on above: Performed By: #### L 500.2500 #### [facility] Laboratory [address] [place], [address] CA,Total 9.1 mg/dL Normal 8.5-10.1 [facility] Comment on above: Performed By: #### L 500.2500 #### [facility] [address] [place], [address] Chloride [Moles/Vol] 106 mmol/L Normal 98-107 [facility] Comment on above: Performed By: #### L 500.2500 #### [facility] [address] [place], [address] CO2 [Moles/Vol] 31.0 mmol/L Normal 21.0-32.0 [facility] Comment on above: Performed By: #### L 500.2500 #### [facility] [address] [place], [address] Creatinine [Mass/Vol] 0.71 mg/dL Normal 0.55-1.02 [facility] Comment on above: Result Comment: The validity of the calculated GFR GFRAA in patients over 70 years has not been determined. Clinical correlation is essential. Performed By: #### L 500.2500 #### [facility] [address] [place], [address] ECRCL 53.66 ml/min Normal [facility] Comment on above: Performed By: #### L 500.2500 #### [facility] [address] [place], [address] EST GFR - AA 105 mL/min Normal >60 [facility] Comment on above: Result Comment: Afri can [place] GFR Calc Performed By: #### L 500.2500 #### [facility] [address] [place], [address] GAP 3 Low 5-15 [facility] Comment on above: Performed By: #### L 500.2500 #### [facility] [address] [place], [address] GFR/1.73 sq M.predicted among non-blacks MDRD (S/P/Bld) [Vol rate/Area] 87 mL/min/{1.73_m2} Normal >60 [facility] Comment on above: Result Comment: Non- GFR Calc Performed By: #### L 500.2500 #### [facility] [address] [place], [address] Glucose [Mass/Vol] 107 mg/dL High 74-106 [facility] Comment on above: Result Comment: Fast ing Glucose result from 100 to 125 mg/dL suggests IMPAIRED HOMEOSTASIS per A.D.A. criteria. Performed By: #### L 500.2500 #### [facility] [address] [place], [address] Potassium [Moles/Vol] 3.4 mmol/L Low 3.5-5.1 [facility] Comment on above: Performed By: #### L 500.2500 #### [facility] [address] [place], [address] Sodium [Moles/Vol] 140 mmol/L Normal 136-145 [facility] Comment on above: Performed By: #### L 500.2500 #### [facility] [address] [place], [address] Urea nitrogen [Mass/Vol] 11 mg/dL Normal 7-18 [facility] Comment on above: Performed By: #### L 500.2500 #### [facility] [address] [place], [address] Brain/Head without Contrasto n 03-20-2024 Brain/Head without Contrast [facility] [address] [place] [address] Brain/Head without Contrast MR#: [id number] Acct: [id number] Name: RENATE INFANTE Rep #: [id number] : 1950 F 73 From: Festus schuster MD PCP: Dr. Frederic Luong MD Status: REG ER Study: Brain/Head without Contrast Date of Exam: 09/06 Exam# [id number] Ordering Dr: Yony Portillo DO [id number] STUDY: CT BRAIN WITHOUT CONTRAST REASON FOR [...] Yony Portillo DO; Dr. Frederic Luong MD Tools Developer: Signed Normal [facility] Chest WITH Contraston 2023 Chest WITH Contrast [facility] [address] [place] [address] Chest WITH Contrast MR#: [id number] Acct: [id number] Name: RENATE INFANTE Rep #: [id number] : 1950 F 73 From: Festus schuster MD PCP: Dr. Frederic Luong MD Status: REG ER Study: Chest WITH Contrast Date of Exam: 03/20/24 Exam# [id number] Ordering Dr: Yony Portillo DO [id number] STUDY: CT CHEST WITH CONTRAST REASON FOR [...] Signed: Festus Solis MD at 13:57 EST , CC: Dr. Yony Portillo DO; Dr. Frederic Luong MD Tools Developer: Signed Normal [facility] Emergency Department Summary on 03-20-2024 Emergency Department Summary [facility] Medical Records Department [address] [place] [address] Emergency Department Summary 03/20/24 MR#: [id number] Acct: [id number] Name: RENATE INFANTE Rep #: [id number] : 1950 73 From: Yony Portillo DO [...] denies any history of blood thinning medications. [facility] Medical History Osteoporosis Home Medications [...] sulfamethoxazole (From Allergy Rash Verified 03/20/24 11:54 Septra) trimethoprim (From ) Allergy Rash Verified 03/20/24 [...] following commands knew that she was at [facility] year is 2023 Skin: Warm, dry, intact [...] 98 Oxy (more content not included)... Normal [facility] Shoulder min 2 Viewson 03-20 Shoulder min 2 Views [facility] [address] [place], [place] [address] Shoulder min 2 Views MR#: [id number] Acct: [id number] Name: RENATE INFANTE Rep #: [id number] : 1950 F 73 From: Festus schuster MD PCP: Dr. Frederic Luong MD Status: REG ER Study: Shoulder min 2 Views Date of Exam: 03/20/24 Exam# [id number] Ordering Dr: Yony Portillo DO [id number] STUDY: X-RAY - LEFT SHOULDER REASON FOR [...] 14:01 EST Reading Location ID and State: [address] [place] [address] , Service support , CC: Dr. Yony Portillo DO; Dr. Frederic Luong MD Tools Developer: Signed Normal [facility] Spine Cervical without Contr ason 03-20-2024 Spine Cervical without Contras [facility] [address] [place], [place] [address] Spine Cervical without Contras MR#: [id number] Acct: [id number] Name: RENATE INFANTE Rep #: [id number] : 1950 F 73 From: Festus schuster MD PCP: Dr. Frederic Luong MD Status: REG ER Study: Spine Cervical without Contras Date of Exam: 05/21/23 Exam# [id number] Ordering Dr: Yony Portillo DO [id number] STUDY: CT CERVICAL SPINE WITHOUT CONTRAST REASON [...] at 14:00 EST , CC: Dr. Yony Portillo DO; Dr. Frederic Luong MD Tools Developer: Signed Normal [facility] 01-23-2024 [facility] Telephone (INTMWS) NARESHRENATE Mccoy I ([id number]) 1950 F Date Time Provider Department 01/23/24 FREDERIC LUONG During your visit today, we [...] Date Reviewed: 01/21/2024 Reviewed by: Moon Feliz, CERTIFIED FIRST ASSISTANT.FERRY BOAT CAPTAIN - Fully Assessed Reason for Visit: Results [...] Status:Closed by LORI RAUSCH on 01/23/24 Normal [facility] Bacteria Ur Culton 4 Bacteria identified Cx [...] , Intermediate >32 , Resistant >64 Abnormal [facility] Comment on above: Performed By: #### 6 30-4 ####[facility] [id number] [place] [address] [place] CBC panel Auto (Bld)on 01-20 Erythrocyte distribution width (RBC) [Ratio] 13.2 % 11.5 - 15.0 % [facility] Hematocrit (Bld) [Volume fraction] 38.2 % 36.0 - 46.0 % [facility] Hemoglobin (Bld) [Mass/Vol] 12.5 g/dL 11.5 - 15.5 g/dL [facility] Interpretation and review of laboratory results Abnormal [facility] MCH (RBC) [Entitic mass] 28.5 pg 26.0 - 34.0 pg [facility] MCHC (RBC) [Mass/Vol] 32.7 g/dL 30.5 - 36.0 g/dL [facility] MCV (RBC) [Entitic vol] 87.0 fL 80.0 - 100.0 fL [facility] Nucleated RBC (Bld) [#/Vol] NINF [facility] Platelet mean volume (Bld) [Entitic vol] 9.9 fL 9.0 - 12.7 fL [facility] Platelets (Bld) [#/Vol] 323 10*3/uL [facility] RBC (Bld) [#/Vol] 4.39 10*6/uL 3.90 - 5.2 0 m/uL [facility] WBC (Bld) [#/Vol] 11.71 10*3/uL High [facility] Erythrocyte distribution width (RBC) [Ratio] 13.2 % Normal 11.5-15.0 [facility] Comment on above: Order Comment: Speci men Type: BLOOD SPECIMENOrdering Facility: [facility] Address: [address] [place] [address] Performed By: #### 5 8410-2 ####[facility] HOSPITALShelby [id number] [address] STATES OF [facility] Hematocrit (Bld) [Volume fraction] 38.2 % Normal 36.0-46.0 [facility] Comment on above: Order Comment: Speci men Type: BLOOD SPECIMENOrdering Facility: [facility] Address: [address] [place] [address] Performed By: #### 5 8410-2 ####[facility] HOSPITALALTALIA [id number] [place] [address] [place] Hemoglobin (Bld) [Mass/Vol] 12.5 g/dL Normal 11.5-15.5 [facility] Comment on above: Order Comment: Speci men Type: BLOOD SPECIMENOrdering Facility: [facility] Address: [address] [place] [address] Performed By: #### 5 8410-2 ####[facility] [id number] [place] [address] [place] MCH (RBC) [Entitic mass] 28.5 pg Normal 26.0-34.0 [facility] Comment on above: Order Comment: Speci men Type: BLOOD SPECIMENOrdering Facility: [facility] Address: [address] [place] [address] Performed By: #### 5 8410-2 ####[facility] [id number] [place] [address] [place] MCHC (RBC) [Mass/Vol] 32.7 g/dL Normal 30.5-36.0 [facility] Comment on above: Order Comment: Speci men Type: BLOOD SPECIMENOrdering Facility: [facility] Address: [address] [place] [address] Performed By: #### 5 8410-2 ####[facility] [id number] [place] [address] [place] MCV (RBC) [Entitic vol] 87.0 fL Normal 80.0-100.0 [facility] Comment on above: Order Comment: Speci men Type: BLOOD SPECIMENOrdering Facility: [facility] Address: [address] [place] [address] Performed By: #### 5 8410-2 ####[facility] [id number] [place] [address] [place] Nucleated RBC (Bld) [#/Vol] 10*3/uL Normal <0.01 [facility] Comment on above: Order Comment: Speci men Type: BLOOD SPECIMENOrdering Facility: [facility] Address: [address] [place] [address] Performed By: #### 5 8410-2 ####[facility] [id number] [place] [address] [place] Platelet mean volume (Bld) [Entitic vol] 9.9 fL Normal 9.0-12.7 [facility] Comment on above: Order Comment: Speci men Type: BLOOD SPECIMENOrdering Facility: [facility] Address: [address] [place] [address] Performed By: #### 5 8410-2 ####[facility]ITALNCLIA [id number] [place] [address] [place] Platelets (Bld) [#/Vol] 323 10*3/uL Normal 150-400 [facility] Comment on above: Order Comment: Speci men Type: BLOOD SPECIMENOrdering Facility: [facility] Address: [address] [place] [address] Performed By: #### 5 8410-2 ####[facility]ITALNCGUNN[facility] [id number] [place] [address] [place] RBC (Bld) [#/Vol] 4.39 10*6/uL Normal 3.90-5.20 [facility] Comment on above: Order Comment: Speci men Type: BLOOD SPECIMENOrdering Facility: [facility] Address: [address] [place] [address] Performed By: #### 5 8410-2 ####[facility] HOSPITALNCA [id number] [place] [address] [place] WBC (Bld) [#/Vol] 11.71 10*3/uL High 3.70-11.00 [facility] Comment on above: Order Comment: Speci men Type: BLOOD SPECIMENOrdering Facility: [facility] Address: [address] [place] [address] Performed By: #### 5 8410-2 ####[facility]ITALNCLIA [id number] [place] [address] [place] CNOVon 01-21-2024 CNOV Office Visit (INTMWS ) RENATE INFANTE I ([id number]) 1950 F Date Time Provider Department 01/21/24 10:40 AM MOON FELIZ INTMWS During your visit today, we recorded the following information about you: Temperature Pulse Respiration Blood pressure 98.9 degrees 81/minute 14/minute 136/86 Weight 56.3 kg Moon Feliz, CERTIFIED FIRST ASSISTANT.FERRY BOAT CAPTAIN 01/21/2024 11:05 AM Signed CC: Patient presents [...] reviewed. Constitut (more content not included)... Normal [facility] metabolic 2000 panelOrdered By: Georgie Oliver on 01-21-2024 Albumin [Mass/Vol] 4.3 g/dL 3.9 - 4.9 g/dL [facility] ALP [Catalytic activity/Vol] 60 U/L 34 - 123 U/L [facility] ALT [Catalytic activity/Vol] 13 U/L 7 - 38 U/L [facility] Anion gap [Moles/Vol] 10 mmol/L 8 - 15 mmol/L [facility] AST [Catalytic activity/Vol] 16 U/L 13 - 35 U/L [facility] Bilirubin [Mass/Vol] 0.5 mg/dL 0.2 - 1 .3 mg/dL [facility] Calcium [Mass/Vol] 9.6 mg/dL 8.5 - 10. 2 mg/dL [facility] Chloride [Moles/Vol] 103 mmol/L 98 - 10 7 mmol/L [facility] CO2 [Moles/Vol] 25 mmol/L 22 - 30 mmol/L [facility] Creatinine [Mass/Vol] 0.70 mg/dL 0.58 - 0.96 mg/dL [facility] GFR/1.73 sq M.predicted among non-blacks MDRD (S/P/Bld) [Vol rate/Area] 93 mL/min/{1.73_m2} - PINF [facility] Comment on above: Estimated Glomerular Filtration Rate [...] 105 mg/dL High 74 - 99 mg/dL [facility] Comment on above: The [place] Diabete s Association (ADA) provides guidance for [...] Standards of Medical Care in Diabetes 2016, [place] Diabetes Association. Diabetes Care. 2016.39(Suppl 1). Interpretation and review of laboratory results Abnormal [facility] Potassium [Moles/Vol] 4.2 mmol/L 3.7 - 5.1 mmol/L [facility] Protein [Mass/Vol] 7.0 g/dL 6.3 - 8.0 g/dL [facility] Sodium [Moles/Vol] 138 mmol/L 136 - 144 mmol/L [facility] Urea nitrogen [Mass/Vol] 11 mg/dL 7 - 21 mg/dL [facility] Comprehensive metabolic 2000 panelon 01-21-2024 Albumin [Mass/Vol] 4.3 g/dL Normal 3.9-4.9 [facility] Comment on above: Order Comment: Speci men Type: BLOOD SPECIMENOrdering Facility: [facility] Address: [facility] [place] [address] Performed By: #### 2 4323-8 ####[facility] [id number] [place] [address] [place] ALP [Catalytic activity/Vol] 60 U/L Normal 34-123 [facility] Comment on above: Order Comment: Speci men Type: BLOOD SPECIMENOrdering Facility: [facility] Address: [address] [place] [address] Performed By: #### 2 4323-8 ####[facility]ITALNCLIA [id number] [address] [place] ALT [Catalytic activity/Vol] 13 U/L Normal 7-38 [facility] Comment on above: Order Comment: Speci men Type: BLOOD SPECIMENOrdering Facility: [facility] Address: [address] [place] [address] Performed By: #### 2 4323-8 ####[facility]ITALLIA [id number] [place] [address] [place] Anion gap [Moles/Vol] 10 mmol/L Normal 8-15 [facility] Comment on above: Order Comment: Speci men Type: BLOOD SPECIMENOrdering Facility: [facility] Address: [address] [place] [address] Performed By: #### 2 4323-8 ####[facility]OS[facility]ITALA [id number] [place] [address] [place] AST [Catalytic activity/Vol] 16 U/L Normal 13-35 [facility] Comment on above: Order Comment: Speci men Type: BLOOD SPECIMENOrdering Facility: [facility] Address: [address] [place] [address] Performed By: #### 2 4323-8 ####[facility]ITALNCLIA [id number] [place] [address] [place] Bilirubin [Mass/Vol] 0.5 mg/dL Normal 0.2-1.3 [facility] Comment on above: Order Comment: Speci men Type: BLOOD SPECIMENOrdering Facility: [facility] Address: [address] [place] [address] Performed By: #### 2 4323-8 ####[facility] MILLTOWNCLIA [id number] [place] [address] [place] Calcium [Mass/Vol] 9.6 mg/dL Normal 8.5-10.2 [facility] Comment on above: Order Comment: Speci men Type: BLOOD SPECIMENOrdering Facility: [facility] Address: [address] [place] [address] Performed By: #### 2 4323-8 ####[facility] MILLWNCLIA [id number] [place] [address] [place] Chloride [Moles/Vol] 103 mmol/L Normal 98-107 [facility] Comment on above: Order Comment: Speci men Type: BLOOD SPECIMENOrdering Facility: [facility] Address: [address] [place] [address] Performed By: #### 2 4323-8 ####[facility] HOSPITALLIA [id number] [place] [address] [place] CO2 [Moles/Vol] 25 mmol/L Normal 22-30 [facility] Comment on above: Order Comment: Speci men Type: BLOOD SPECIMENOrdering Facility: [facility] Address: [address] [place] [address] Performed By: #### 2 4323-8 ####[facility]ITALNCLIA [id number] [place] [address] [place] Creatinine [Mass/Vol] 0.70 mg/dL Normal 0.58-0.96 [facility] Comment on above: Order Comment: Speci men Type: BLOOD SPECIMENOrdering Facility: [facility] Address: [address] [place] [address] Performed By: #### 2 4323-8 ####[facility]ITALNCLIA [id number] [place] [address] [place] Creatinine and Glomerular filtration rate.predicted panel (S/P/Bld) 93 mL/min/1.73m??? Normal >=60 [facility] Comment on above: Order Comment: Marva gerardo Type: BLOOD SPECIMENOrdering Facility: [facility] Address: [address] [place] [address] Result Comment: Babs mated Glomerular Filtration Rate [...] actual GFR. Performed By: #### 2 4323-8 ####[facility] [id number] [place] [address] [place] Glucose [Mass/Vol] 105 mg/dL High 74-99 [facility] Comment on above: Order Comment: Marva gerardo Type: BLOOD SPECIMENOrdering Facility: [facility] Address: [address] [place] [address] Result Comment: The [place] Diabetes Association (ADA) provides guidance for cutoff [...] Standards of Medical Care in Diabetes 2016, [place] Diabetes Association. Diabetes Care. 2016.39(Suppl 1). Performed By: #### 2 4323-8 ####[facility] [id number] [place] [address] [place] Potassium [Moles/Vol] 4.2 mmol/L Normal 3.7-5.1 [facility] Comment on above: Order Comment: Speci men Type: BLOOD SPECIMENOrdering Facility: [facility] Address: [address] [place] [address] Performed By: #### 2 4323-8 ####[facility] MICHAELNCRACIEL [id number] [place] [address] [place] Protein [Mass/Vol] 7.0 g/dL Normal 6.3-8.0 [facility] Comment on above: Order Comment: Speci men Type: BLOOD SPECIMENOrdering Facility: [facility] Address: [address] [place] [address] Performed By: #### 2 4323-8 ####[facility] HOSPITALNCLIShelby [id number] [place] [address] [place] Sodium [Moles/Vol] 138 mmol/L Normal 136-144 [facility] Comment on above: Order Comment: Speci men Type: BLOOD SPECIMENOrdering Facility: [facility] Address: [address] [place] [address] Performed By: #### 2 4323-8 ####[facility]ITALNCLIA [id number] [place] [address] [place] Urea nitrogen [Mass/Vol] 11 mg/dL Normal 7-21 [facility] Comment on above: Order Comment: Speci men Type: BLOOD SPECIMENOrdering Facility: [facility] Address: [address] [place] [address] Performed By: #### 2 4323-8 ####[facility]ITALNCLIA [id number] [place] [address] [place] UA DIP, URINE (POC)on 2023 BILIRUBIN UA (POCT) Small Abnormal Negative [facility] CLARITY UA (POCT) Slightly Cloudy Cl [facility] COLOR UA (POCT) Red [facility] GLUCOSE UA (POCT) Negative Negative mg/dL [facility] Hemoglobin Ql (U) Large Abnormal Negative [facility] Interpretation and review of laboratory results Abnormal [facility] KETONE UA (POCT) Negative Negative mg/dL [facility] LEUKOCYTES UA (POCT) Large Abnormal Negative [facility] NITRITE UA (POCT) Positive Abnormal Negative [facility] PH UA (POCT) 7.0 4.5 - 8.0 [facility] Protein Ql (U) >=300 Abnormal Negative mg/dL [facility] SPECIFIC GRAVITY UA (POCT) 1.020 1.005 - 1.030 [facility] UROBILINOGEN UA (POCT) 1.0 Normal E.U./dL [facility] Location:[facility], [address] [place] [address], [place], [place], [id number] [place] [address] POINT OF CARE [facility] Urinalysis complete panel (U )on 01-21-2024 Bacteria LM.HPF (Urine sed) [#/Area] Few Abnormal None Seen [facility] Comment on above: Order Comment: Speci men Type: URINE SPECIMENOrdering Facility: [facility] Address: [address] [place] [address] Performed By: #### 2 4356-8 ####[facility] [id number] [place] [address] [place] Bilirubin Ql (U) 1+ Abnormal Negative [facility] Comment on above: Order Comment: Speci men Type: URINE SPECIMENOrdering Facility: [facility] Address: [address] [place] [address] Result Comment: Sugg est correlation with clinical findings and serum bilirubin if clinically indicated. Performed By: #### 2 4356-8 ####[facility] [id number] [place] [address] [place] Clarity (Unsp spec) Turbid Abnormal Clear [facility] Comment on above: Order Comment: Speci men Type: URINE SPECIMENOrdering Facility: [facility] Address: [address] [place] [address] Performed By: #### 2 4356-8 ####[facility] [id number] [place] [address] [place] Color (U) Red Abnormal Yellow [facility] Comment on above: Order Comment: Speci men Type: URINE SPECIMENOrdering Facility: [facility] Address: [address] [place] [address] Performed By: #### 2 4356-8 ####[facility]CL[facility] [id number] [facility] [place] [address] [place] Glucose Test strip (U) [Mass/Vol] Negative Normal Negative [facility] Comment on above: Order Comment: Speci men Type: URINE SPECIMENOrdering Facility: [facility] Address: [address] [place] [address] Performed By: #### 2 4356-8 ####[facility] [id number] [facility] [place] [address] [place] Hemoglobin Ql (U) 3+ Abnormal Negative [facility] Comment on above: Order Comment: Speci men Type: URINE SPECIMENOrdering Facility: [facility] Address: [address] [place] [address] Performed By: #### 2 4356-8 ####[facility] [id number] [place] [address] [place] Ketones Ql (U) Trace Abnormal Negative [facility] Comment on above: Order Comment: Speci men Type: URINE SPECIMENOrdering Facility: [facility] Address: [address] [place] [address] Performed By: #### 2 4356-8 ####[facility] [id number] [facility] [place] [address] [place] Leukocyte esterase Test strip Ql (U) 2+ Abnormal Negative [facility] Comment on above: Order Comment: Speci men Type: URINE SPECIMENOrdering Facility: [facility] Address: [address] [place] [address] Performed By: #### 2 4356-8 ####[facility] [id number] [place] [address] [place] Nitrite Ql (U) Positive Abnormal Negative [facility] Comment on above: Order Comment: Speci men Type: URINE SPECIMENOrdering Facility: [facility] Address: [address] [place] [address] Performed By: #### 2 4356-8 ####[facility] [id number] [place] [address] [place] pH (U) 7.0 [pH] Normal 5.0-8.0 [facility] Comment on above: Order Comment: Speci men Type: URINE SPECIMENOrdering Facility: [facility] Address: [address] [place] [address] Performed By: #### 2 4356-8 ####[facility] [id number] [place] [address] [place] Protein (U) [Mass/Vol] 2+ Abnormal Negative [facility] Comment on above: Order Comment: Speci men Type: URINE SPECIMENOrdering Facility: [facility] Address: [address] [place] [address] Performed By: #### 2 4356-8 ####[facility] [id number] [place] [address] [place] RBC LM.HPF (Urine sed) [#/Area] /[HPF] Abnormal 0-3 /HPF [facility] Comment on above: Order Comment: Speci men Type: URINE SPECIMENOrdering Facility: [facility] Address: [address] [place] [address] Performed By: #### 2 4356-8 ####[facility] [id number] [place] [address] [place] Specific gravity (U) [Rel density] 1.015 Normal 1.005-1.030 [facility] Comment on above: Order Comment: Speci men Type: URINE SPECIMENOrdering Facility: [facility] Address: [address] [place] [address] Performed By: #### 2 4356-8 ####[facility] [id number] [place] [id number] [place] Urobilinogen Ql (U) 1.0 EU/dL Normal 0.2-1.0 EU/dL Cl [facility] Comment on above: Order Comment: Speci men Type: URINE SPECIMENOrdering Facility: [facility] Address: [address] [place] [address] Performed By: #### 2 4356-8 ####[facility] [id number] [place] [address] [place] WBC LM.HPF (Urine sed) [#/Area] /[HPF] Abnormal 0-5 /HPF [facility] Comment on above: Order Comment: Speci men Type: URINE SPECIMENOrdering Facility: [facility] Address: [address] [place] [address] Performed By: #### 2 4356-8 ####[facility] [id number] [place] [address] [place] Emergency Department Summary on 12-30-2023 Emergency Department Summary [facility] Medical Records Department [address] [place] [address] Emergency Department Summary 12/30/23 MR#: [id number] Acct: [id number] Name: RENATE INFANTE Rep #: [id number] : 1950 73 From: Parmjit Bingham DO [...] is here for evaluation. She does see [facility] however they will not take her [...] is here for evaluation. She does see [facility] however they will not take her until the swelling goes down. Patient denies any fever chills nausea or vomiting. Patient denies trismus, difficulty swallowing, drooling, throat tightness or chest tightness. [facility] Medical History (Updated 12/30/23 @ 17:40 [...] no rash, (more content not included)... Normal [facility] OPERATIVE NOon 08-31-2023 OPERATIVE NO HNO ID: [id number] Author: PJ RYAN MD Service: Orthopaedic Surgery Author Type: Physician Type: Operative Report Filed: 08/31/2023 12:45 Note Text: OPERATIVE/PROCEDURE REPORT LOG ID: [id number] Surgery/Procedure Date: 08/31/2023 Incision/Procedure Start Time: 11:17 AM Incision Close/Procedure End Time: 11:26 AM Surgeon(s)/Procedurali st(s) and Security Risk Analyst(s): Surgeon(s) and Role: * Pj Ryan MD - Primary Physician Security Risk Analyst: Lizz Bo PA-C Procedure(s): right middle trigger [...] 31, 2023 TIME: 12:43 PM PAGER/CONTACT #: [facility] COLONOSCOPY SCREENINGon - [facility] BEULAH SCREENINGon 08-01-2022 [facility] XR Knee - right 4 Viewson IMPRESSION: Right knee degenerative changes and chondrocalcinosis. Osteopenia. Joint effusion. No acute osseous abnormality. Tools Developer: [employer] Transcribe Date/Time: Jul 14 2022 6:11A Dictated by : ISABELLE MORELAND MD This examination was interpreted and the report reviewed and electronically signed by: ISABELLE MORELAND MD on Jul 14 2022 6:12AM [facility] DIVISION OF RADIOLOGY * * *Final Report* [...] small tricompartmental osteophytes. DIVISION OF RADIOLOGY Provider, [facility] - 07/14/2022 * * *Final [...] Osteopenia. Joint effusion. No acute osseous abnormality. Tools Developer: [facility] Transcribe Date/Time: Jul 14 2022 6:11A Dictated by : ISABELLE MORELAND MD This examination was interpreted and the report reviewed and electronically signed by: ISABELLE MORELAND MD on Jul 14 2022 6:12AM [facility] XR Pelvis and Hip - right AP and Lateral frogon 07-14-2022 IMPRESSION: Osteopenia. No acute osseous abnormality. Degenerative changes and chondrocalcinosis. Nonspecific subcentimeter calcification overlying the subtrochanteric right femur laterally. Tools Developer: [facility] Transcribe Date/Time: Jul 14 2022 6:08A Dictated by : ISABELLE MORELAND MD This examination was interpreted and the report reviewed and electronically signed by: ISABELLE MORELAND MD on Jul 14 2022 6:11AM [facility] [facility] DIVISION OF RADIOLOGY * * *Final Report* [...] subtrochanteric right femur. DIVISION OF RADIOLOGY Provider, Taina Villafuerte - 07/14/2022 * * *Final Report* * [...] calcification overlying the subtrochanteric right femur laterally. Tools [facility] Transcribe Date/Time: Jul 14 2022 6:08A Dictated by : ISABELLE MORELAND MD This examination was interpreted and the report reviewed and electronically signed by: ISABELLE MORELAND MD on Jul 14 2022 6:11AM EST [facility] XR Pelvis and Hip - right AP and Lateral frogOrdered By: Ccf Provider on 07-14-2022 [facility] CBC panel Auto (Bld)on 07-13 Erythrocyte distribution width (RBC) [Ratio] 13.1 % 11.5 - 15.0 % [facility] Hematocrit (Bld) [Volume fraction] 40.7 % 36.0 - 46.0 % [facility] Hemoglobin (Bld) [Mass/Vol] 13.1 g/dL 11.5 - 15.5 g/dL [facility] MCH (RBC) [Entitic mass] 28.2 pg 26.0 - 34.0 pg [facility] MCHC (RBC) [Mass/Vol] 32.2 g/dL 30.5 - 36.0 g/dL [facility] MCV (RBC) [Entitic vol] 87.5 fL 80.0 - 100.0 fL [facility] Nucleated RBC (Bld) [#/Vol] <0.01 k/uL [facility] Platelet mean volume (Bld) [Entitic vol] 9.9 fL 9.0 - 12.7 fL [facility] Platelets (Bld) [#/Vol] 363 10*3/uL 150 - 400 k/uL [facility] RBC (Bld) [#/Vol] 4.65 10*6/uL 3.90 - 5.2 0 m/uL [facility] WBC (Bld) [#/Vol] 9.45 10*3/uL 3.70 - 11. 00 k/uL [facility] No Panel Informationon 07-13 Radiology Study observation (narrative) [facility] XR HAND GENERAL 3V PA/LAT/OB L LEFTon 03-31-2022 [facility] XR Hand - left PA and Latera l and Obliqueon 03-31-2022 IMPRESSION: No acute bony abnormality. Soft tissue laceration dorsally. Tools [facility] Transcribe Date/Time: Mar 31 2022 11:33A Dictated by : Andrew BUSBY MD This examination was interpreted and the report reviewed and electronically signed by: Andrew BUSBY MD on Mar 31 2022 11:36AM [facility] DIVISION OF RADIOLOGY * * *Final Report* [...] joint. No erosions. DIVISION OF RADIOLOGY [facility] * * *Final Report* * [...] acute bony abnormality. Soft tissue laceration dorsally. Tools Developer: [facility] Transcribe Date/Time: Mar 31 2022 11:33A Dictated by : Andrew BUSBY MD This examination was interpreted and the report reviewed and electronically signed by: Andrew BUSBY MD on Mar 31 2022 11:36AM EST [facility] Radiology Study observation (narrative) [facility] XR Hand - left PA and Latera l and ObliqueOrdered By: Ccf Provider on 03-31-2022 [facility] CBC W Auto Differential pane l (Bld)on 01-06-2022 Abs Immature Gran <0.10 k/uL [facility] Basophils (Bld) [#/Vol] 0.07 10*3/uL <0.11 k/uL [facility] Basophils/100 WBC (Bld) 1.0 % [facility] Differential cell count method Nom (Bld) Auto [facility] Eosinophils (Bld) [#/Vol] 0.25 10*3/uL <0.46 k/uL [facility] Eosinophils/100 WBC (Bld) 3.6 % [facility] Erythrocyte distribution width (RBC) [Ratio] 12.7 % 11.5 - 15.0 % [facility] Hematocrit (Bld) [Volume fraction] 40.0 % 36.0 - 46.0 % [facility] Hemoglobin (Bld) [Mass/Vol] 12.5 g/dL 11.5 - 15.5 g/dL [facility] Immature Gran % 0.3 % [facility] Lymphocytes (Bld) [#/Vol] 2.69 10*3/uL 1.00 - 4.00 k/uL [facility] Lymphocytes/100 WBC (Bld) 39.2 % [facility] MCH (RBC) [Entitic mass] 27.8 pg 26.0 - 34.0 pg [facility] MCHC (RBC) [Mass/Vol] 31.3 g/dL 30.5 - 36.0 g/dL [facility] MCV (RBC) [Entitic vol] 88.9 fL 80.0 - 100.0 fL [facility] Monocytes (Bld) [#/Vol] 0.40 10*3/uL <0.87 k/uL [facility] Monocytes/100 WBC (Bld) 5.8 % [facility] Neutrophils (Bld) [#/Vol] 3.43 10*3/uL 1.45 - 7.50 k/uL [facility] Neutrophils/100 WBC (Bld) 50.1 % [facility] Nucleated RBC (Bld) [#/Vol] <0.01 k/uL [facility] Nucleated RBC/100 WBC (Bld) [Ratio] 0.0 /100 WBC [facility] Platelet mean volume (Bld) [Entitic vol] 9.4 fL 9.0 - 12.7 fL [facility] Platelets (Bld) [#/Vol] 343 10*3/uL 150 - 400 k/uL [facility] RBC (Bld) [#/Vol] 4.50 10*6/uL 3.90 - 5.2 0 m/uL [facility] WBC (Bld) [#/Vol] 6.86 10*3/uL 3.70 - 11. 00 k/uL [facility] XR Knee - right 4 Viewson IMPRESSION: No acute osseous abnormality. Moderate lateral compartment osteoarthritis RIGHT knee. Chondrocalcinosis. Tools Developer: [facility] Transcribe Date/Time: Nov 17 2021 2:36P Dictated by : JOANNA TREVIÑO DO This examination was interpreted and the report reviewed and electronically signed by: JOANNA TREVIÑO DO on Nov 17 2021 2:40PM EST [facility] _DIVISION OF RADIOLOGY * * *Final Report* [...] compartment chondrocalcinosis. [facility]NOT[facility] _DIVISION OF RADIOLOGY Provider, [facility] - 11/17/2021 * * *Final Report* * [...] Moderate lateral compartment osteoarthritis RIGHT knee. Chondrocalcinosis. Tools Developer: [facility] Transcribe Date/Time: Nov 17 2021 2:36P Dictated by : JOANNA TREVIÑO DO This examination was interpreted and the report reviewed and electronically signed by: JOANNA TREVIÑO DO on Nov 17 2021 2:40PM EST [facility] Radiology Study observation (narrative) [facility] XR Knee - right 4 ViewsOrder ed By: Ccf Provider on 11-17-2021 [facility] XR CHEST 2V FRONTAL/LATon [facility] XR Chest PA and Lateralon IMPRESSION: No acute radiographic abnormality. Tools [facility] Transcribe Date/Time: Jul 05 2021 10:40A Dictated by : ABBIE MUNOZ MD This examination was interpreted and the report reviewed and electronically signed by: ABBIE MUNOZ MD on Jul 05 2021 10:41AM [facility] DIVISION OF RADIOLOGY * * *Final Report* [...] in the spine. DIVISION OF RADIOLOGY Provider, [facility] - 07/05/2021 * * *Final [...] spine. IMPRESSION IMPRESSION: No acute radiographic abnormality. Tools Developer: [facility] Transcribe Date/Time: Jul 05 2021 10:40A Dictated by : ABBIE MUNOZ MD This examination was interpreted and the report reviewed and electronically signed by: ABBIE MUNOZ MD on Jul 05 2021 10:41AM EST [facility] Radiology Study observation (narrative) [facility] XR Chest PA and LateralOrder ed By: Ccf Provider on 07-05-2021 [facility] Vital Signs Date Time Vital Sign Value Performing Clinician Zhang pratt 12-12-2024 09:14-0400 Body mass index (BMI) [Ratio] 23.79 kg/m2 Moon Feliz APRN.[employer] Work Phone: [facility] 12-12-2024 09:14-0400 Body weight 54.6 kg Moon Feliz APRN.[employer] Work Phone: [facility] 12-12-2024 09:14-0400 Diastolic blood pressure 80 mm[Hg] Moon Feliz APRN.[employer] Work Phone: [facility] 12-12-2024 09:14-0400 Heart rate 68 /min Moon Feliz APRN.[employer] Work Phone: [facility] 12-12-2024 09:14-0400 Respiratory rate 12 /min Moon Feliz APRN.[employer] Work Phone: [facility] 12-12-2024 09:14-0400 SaO2% (BldA) [Mass fraction] 98 % Moon Feliz APRN.[employer] Work Phone: [facility] 12-12-2024 09:14-0400 Systolic blood pressure 136 mm[Hg] Moon Feliz APRN.[employer] Work Phone: [facility] 12-06-2024 22:58-0400 Body temperature 98.2 [degF] Dr. Frederic Luong MD Work Phone: 8(963)489-451952 [place] [address] 12-06-2024 22:58-0400 Diastolic blood pressure 76 mm[Hg] Dr. Frederic Luong MD Work Phone: 9(760)888-431452 [place] [address] 12-06-2024 22:58-0400 Heart rate 74 /min Dr. Frederic Luong MD Work Phone: 2(346)124-371152 [place] [address] 12-06-2024 22:58-0400 Respiratory rate 16 /min Dr. Frederic Luong MD Work Phone: 7(118)809-228052 [place] [address] 12-06-2024 22:58-0400 SaO2% (BldA) [Mass fraction] 97 % Dr. Frederic Luong MD Work Phone: 8(317)178-127852 [place] [address] 12-06-2024 22:58-0400 Systolic blood pressure 176 mm[Hg] Dr. Frederic Luong MD Work Phone: 8(136)360-428552 [place] [address] 12-06-2024 19:44-0400 Body height 152.[address] Frederic Luong MD Work Phone: 0(745)985-638252 [place] [address] 12-06-2024 19:44-0400 Body mass index (BMI) [Ratio] 23.6 kg/m2 Dr. Frederic Luong MD Work Phone: 7(519)773-192352 [place] [address] 12-06-2024 19:44-0400 Body weight 54.[address] Frederic Luong MD Work Phone: 7(991)199-164652 [place] [address] 10-18-2024 06:22-0400 Body temperature 97.8 [degF] Dr. Frederic Luong MD Work Phone: 5(674)477-094552 [place] [address] 10-18-2024 06:22-0400 Diastolic blood pressure 60 mm[Hg] Dr. Frederic Luong MD Work Phone: 7(210)352-702052 [place] [address] 10-18-2024 06:22-0400 Heart rate 68 /min Dr. Frederic Luong MD Work Phone: 1(007)938-690452 [place] [address] 10-18-2024 06:22-0400 Respiratory rate 16 /min Dr. Frederic Luong MD Work Phone: 0(315)443-684657 [place] [address] 10-18-2024 06:22-0400 SaO2% (BldA) [Mass fraction] 100 % Dr. Frederic Luong MD Work Phone: 6(685)727-587052 [place] [address] 10-18-2024 06:22-0400 Systolic blood pressure 123 mm[Hg] Dr. Frederic Luong MD Work Phone: 7(043)249-164457 [place] [address] 10-18-2024 06:02-0400 Body height 152.[address] Frederic Luong MD Work Phone: 7(861)932-546052 [place] [address] 10-18-2024 06:02-0400 Body mass index (BMI) [Ratio] 25 kg/m2 Dr. Frederic Luong MD Work Phone: 0(473)657-734752 [place] [address] 10-18-2024 06:02-0400 Body weight 58.[address] Frederic Luong MD Work Phone: 1(724)533-328452 [place] [address] 08-27-2024 18:27-0400 Body mass index (BMI) [Ratio] 24.66 kg/m2 Moon Tray CERTIFIED FIRST ASSISTANT.[employer] Work Phone: [facility] 08-27-2024 18:27-0400 Body weight 56.6 kg Moon Tray CERTIFIED FIRST ASSISTANT.[employer] Work Phone: [facility] 08-27-2024 18:27-0400 Diastolic blood pressure 82 mm[Hg] Moon Tray CERTIFIED FIRST ASSISTANT.[employer] Work Phone: [facility] 08-27-2024 18:27-0400 Heart rate 82 /min Moon Tray CERTIFIED FIRST ASSISTANT.[employer] Work Phone: [facility] 08-27-2024 18:27-0400 Respiratory rate 12 /min Moon Tray CERTIFIED FIRST ASSISTANT.[employer] Work Phone: [facility] 08-27-2024 18:27-0400 SaO2% (BldA) [Mass fraction] 98 % Moon Tray CERTIFIED FIRST ASSISTANT.[employer] Work Phone: [facility] 08-27-2024 18:27-0400 Systolic blood pressure 132 mm[Hg] Moon Tray CERTIFIED FIRST ASSISTANT.[employer] Work Phone: [facility] 07-30-2024 17:48-0400 Body mass index (BMI) [Ratio] 24.62 kg/m2 Moon Tray CERTIFIED FIRST ASSISTANT.[employer] Work Phone: [facility] 07-30-2024 17:48-0400 Body weight 56.5 kg Moon Tray CERTIFIED FIRST ASSISTANT.[employer] Work Phone: [facility] 07-30-2024 17:48-0400 Diastolic blood pressure 80 mm[Hg] Moon Tray CERTIFIED FIRST ASSISTANT.[employer] Work Phone: [facility] 07-30-2024 17:48-0400 Heart rate 76 /min Moon Tray CERTIFIED FIRST ASSISTANT.[employer] Work Phone: [facility] 07-30-2024 17:48-0400 Respiratory rate 14 /min Moon Tray CERTIFIED FIRST ASSISTANT.[employer] Work Phone: [facility] 07-30-2024 17:48-0400 SaO2% (BldA) [Mass fraction] 98 % Moon Tray CERTIFIED FIRST ASSISTANT.[employer] Work Phone: [facility] 07-30-2024 17:48-0400 Systolic blood pressure 132 mm[Hg] Moon Tray CERTIFIED FIRST ASSISTANT.[employer] Work Phone: [facility] 06-25-2024 16:41-0400 Body mass index (BMI) [Ratio] 23.92 kg/m2 Moon Tray CERTIFIED FIRST ASSISTANT.[employer] Work Phone: [facility] 06-25-2024 16:41-0400 Body weight 54.9 kg Moon Tray CERTIFIED FIRST ASSISTANT.[employer] Work Phone: [facility] 06-25-2024 16:41-0400 Diastolic blood pressure 80 mm[Hg] Moon Tray CERTIFIED FIRST ASSISTANT.[employer]TAIN Work Phone: [facility] 06-25-2024 16:41-0400 Heart rate 80 /min Moon Tray CERTIFIED FIRST ASSISTANT.[employer] Work Phone: [facility] 06-25-2024 16:41-0400 Respiratory rate 12 /min Moon Tray CERTIFIED FIRST ASSISTANT.[employer] Work Phone: [facility] 06-25-2024 16:41-0400 SaO2% (BldA) [Mass fraction] 97 % Moon Tray CERTIFIED FIRST ASSISTANT.[employer] Work Phone: [facility] 06-25-2024 16:41-0400 Systolic blood pressure 136 mm[Hg] Moon Tray CERTIFIED FIRST ASSISTANT.[employer] Work Phone: [facility] 05-28-2024 16:17-0500 Body mass index (BMI) [Ratio] 24.53 kg/m2 Moon Tray CERTIFIED FIRST ASSISTANT.[employer] Work Phone: [facility] 05-28-2024 16:17-0500 Body weight 56.3 kg Moon Tray CERTIFIED FIRST ASSISTANT.[employer] Work Phone: [facility] 05-28-2024 16:17-0500 Diastolic blood pressure 80 mm[Hg] Moon Tray CERTIFIED FIRST ASSISTANT.[employer]TAIN Work Phone: [facility] 05-28-2024 16:17-0500 Heart rate 64 /min Moon Tray CERTIFIED FIRST ASSISTANT.[employer] Work Phone: [facility] 05-28-2024 16:17-0500 Respiratory rate 14 /min Moon Tray CERTIFIED FIRST ASSISTANT.[employer] Work Phone: [facility] 05-28-2024 16:17-0500 SaO2% (BldA) [Mass fraction] 99 % Moon Tray CERTIFIED FIRST ASSISTANT.[employer] Work Phone: [facility] 05-28-2024 16:17-0500 Systolic blood pressure 136 mm[Hg] Moon Tray CERTIFIED FIRST ASSISTANT.[employer] Work Phone: [facility] 05-16-2024 13:42-0500 Diastolic blood pressure 76 mm[Hg] Frederic Luong MD Work Phone: [facility] 05-16-2024 13:42-0500 Systolic blood pressure 150 mm[Hg] Frederic Luong MD Work Phone: [facility] 05-16-2024 13:38-0500 Body mass index (BMI) [Ratio] 24.92 kg/m2 Frederic Luong MD Work Phone: [facility] 05-16-2024 13:38-0500 Body temperature 98.71 [degF] Frederic Luong MD Work Phone: [facility] 05-16-2024 13:38-0500 Body weight 57.2 kg Frederic Luong MD Work Phone: [facility] 05-16-2024 13:38-0500 Heart rate 71 /min Frederic Luong MD Work Phone: [facility] 05-16-2024 13:38-0500 SaO2% (BldA) [Mass fraction] 95 % Frederic Luong MD Work Phone: [facility] 04-30-2024 16:12-0500 Body height 151.5 cm Moon Feliz APRN.[employer] Work Phone: [facility] 04-30-2024 16:12-0500 Body mass index (BMI) [Ratio] 24.31 kg/m2 Moon Feliz APRN.[employer] Work Phone: [facility] 04-30-2024 16:12-0500 Body weight 55.8 kg Moon Feliz APRN.[employer] Work Phone: [facility] 04-30-2024 16:12-0500 Diastolic blood pressure 72 mm[Hg] Moon Feliz APRN.CNP Work Phone: [facility] 04-30-2024 16:12-0500 Heart rate 74 /min Moon Feliz APRN.[employer] Work Phone: [facility] 04-30-2024 16:12-0500 Respiratory rate 14 /min Moon Feliz APRN.[employer] Work Phone: [facility] 04-30-2024 16:12-0500 SaO2% (BldA) [Mass fraction] 98 % Moon Feliz APRN.[employer] Work Phone: [facility] 04-30-2024 16:12-0500 Systolic blood pressure 118 mm[Hg] Moon Feliz APRN.[employer]TAIN Work Phone: [facility] 04-24-2024 12:57-0500 Body mass index (BMI) [Ratio] 22.98 kg/m2 Agus Garcia APRN.[employer] Work Phone: [facility] 04-24-2024 12:57-0500 Body temperature 97.2 [degF] Agus Garcia APRN.[employer] Work Phone: [facility] 04-24-2024 12:57-0500 Body weight 57 kg Agus Garcia APRN.[employer]TAIN Work Phone: [facility] 04-24-2024 12:57-0500 Diastolic blood pressure 77 mm[Hg] Agus Garcia APRN.[employer] Work Phone: [facility] 04-24-2024 12:57-0500 Heart rate 72 /min Agus Garcia APRN.[employer] Work Phone: [facility] 04-24-2024 12:57-0500 Respiratory rate 20 /min Agus Garcia APRN.[employer] Work Phone: [facility] 04-24-2024 12:57-0500 SaO2% (BldA) [Mass fraction] 99 % Agus Garcia APRN.[employer] Work Phone: [facility] 04-24-2024 12:57-0500 Systolic blood pressure 151 mm[Hg] Agus Garcia APRN.[employer] Work Phone: [facility] 03-24-2024 19:08-0500 Body mass index (BMI) [Ratio] 22.78 kg/m2 Frederic Luong MD Work Phone: [facility] 03-24-2024 19:08-0500 Body temperature 99.1 [degF] Frederic Luong MD Work Phone: [facility] 03-24-2024 19:08-0500 Body weight 56.5 kg Frederic Luong MD Work Phone: [facility] 03-24-2024 19:08-0500 Diastolic blood pressure 80 mm[Hg] Frederic Luong MD Work Phone: [facility] 03-24-2024 19:08-0500 Heart rate 90 /min Frederic Luong MD Work Phone: [facility] 03-24-2024 19:08-0500 Respiratory rate 14 /min Frederic Luong MD Work Phone: [facility] 03-24-2024 19:08-0500 SaO2% (BldA) [Mass fraction] 98 % Frederic Luong MD Work Phone: [facility] 03-24-2024 19:08-0500 Systolic blood pressure 138 mm[Hg] Frederic Luong MD Work Phone: [facility] 01-21-2024 10:40-0400 Body mass index (BMI) [Ratio] 22.7 kg/m2 Moon Feliz APRN.[employer] Work Phone: [facility] 01-21-2024 10:40-0400 Body temperature 98.91 [degF] Moon Feliz CERTIFIED FIRST ASSISTANT.[employer]TAIN Work Phone: [facility] 01-21-2024 10:40-0400 Body weight 56.3 kg Moon Feliz CERTIFIED FIRST ASSISTANT.[employer] Work Phone: [facility] 01-21-2024 10:40-0400 Diastolic blood pressure 86 mm[Hg] Moon Feliz CERTIFIED FIRST ASSISTANT.[employer]TAIN Work Phone: [facility] 01-21-2024 10:40-0400 Heart rate 81 /min Moon Feliz APRN.[employer] Work Phone: [facility] 01-21-2024 10:40-0400 Respiratory rate 14 /min Moon Feliz CERTIFIED FIRST ASSISTANT.[employer] Work Phone: [facility] 01-21-2024 10:40-0400 SaO2% (BldA) [Mass fraction] 95 % Moon Feliz APRN.[employer] Work Phone: [facility] 01-21-2024 10:40-0400 Systolic blood pressure 136 mm[Hg] Moon Feliz APRN.[employer] Work Phone: [facility] 12-29-2023 10:01-0400 Body mass index (BMI) [Ratio] 22.94 kg/m2 Agus Garcia APRN.[employer] Work Phone: [facility] 12-29-2023 10:01-0400 Body temperature 98.1 [degF] Agus Garcia APRN.[employer] Work Phone: [facility] 12-29-2023 10:01-0400 Body weight 56.9 kg Agus Garcia APRN.[employer] Work Phone: [facility] 12-29-2023 10:01-0400 Diastolic blood pressure 74 mm[Hg] Agus Garcia APRN.[employer] Work Phone: [facility] 12-29-2023 10:01-0400 Heart rate 74 /min Agus Garcia APRN.[employer] Work Phone: [facility] 12-29-2023 10:01-0400 Respiratory rate 16 /min Agus Garcia APRN.[employer] Work Phone: [facility] 12-29-2023 10:01-0400 SaO2% (BldA) [Mass fraction] 98 % Agus Garcia APRN.[employer] Work Phone: [facility] 12-29-2023 10:01-0400 Systolic blood pressure 110 mm[Hg] Agus Garcia APRN.[employer] Work Phone: [facility] 07-01-2023 17:44-0400 Body temperature 97.9 [degF] [facility] 07-01-2023 17:44-0400 Diastolic blood pressure 76 mm[Hg] [facility] 07-01-2023 17:44-0400 Heart rate 68 /min [facility] 07-01-2023 17:44-0400 Respiratory rate 16 /min [facility] 07-01-2023 17:44-0400 SaO2% (BldA) [Mass fraction] 97 % [facility] 07-01-2023 17:44-0400 Systolic blood pressure 124 mm[Hg] [facility] 07-01-2023 14:34-0400 Body mass index (BMI) [Ratio] 25.2 kg/m2 [facility] 07-01-2023 14:34-0400 Body weight 58.51 kg [facility] 07-01-2023 14:29-0400 Body height 152.4 cm [facility] 07-01-2023 14:14-0400 Body temperature 100.4 [degF] Riaz Flores APRN.[employer] Work Phone: [facility] 07-01-2023 14:14-0400 Body weight 59.1 kg Riaz Flores APRN.[employer]TAIN Work Phone: [facility] 06-04-2023 15:45-0500 Body temperature 98.6 [degF] Frederic Luong MD Work Phone: [facility] 06-04-2023 15:45-0500 Body weight 55.79 kg Frederic Luong MD Work Phone: [facility] 06-04-2023 15:45-0500 Diastolic blood pressure 80 mm[Hg] Frederic Luong MD Work Phone: [facility] 06-04-2023 15:45-0500 Heart rate 88 /min Frederic Luong MD Work Phone: [facility] 06-04-2023 15:45-0500 Respiratory rate 16 /min Frederic Luong MD Work Phone: [facility] 06-04-2023 15:45-0500 Systolic blood pressure 132 mm[Hg] Frederic Luong MD Work Phone: [facility] 04-13-2023 22:53-0500 Diastolic blood pressure 68 mm[Hg] [facility] 04-13-2023 22:53-0500 Heart rate 67 /min [facility] 04-13-2023 22:53-0500 Respiratory rate 18 /min [facility] 04-13-2023 22:53-0500 SaO2% (BldA) [Mass fraction] 97 % [facility] 04-13-2023 22:53-0500 Systolic blood pressure 109 mm[Hg] [facility] 04-13-2023 17:47-0500 Body height 152.4 cm [facility] 04-13-2023 17:47-0500 Body mass index (BMI) [Ratio] 25 kg/m2 [facility] 04-13-2023 17:47-0500 Body temperature 98.2 [degF] [facility] 04-13-2023 17:47-0500 Body weight 58.2 kg [facility] 12-28-2022 11:26-0400 Diastolic blood pressure 69 mm[Hg] Alen Arroyo MD Work Phone: [facility] 12-28-2022 11:26-0400 Heart rate 56 /min Alen Arroyo MD Work Phone: [facility] 12-28-2022 11:26-0400 Respiratory rate 16 /min Alen Arroyo MD Work Phone: [facility] 12-28-2022 11:26-0400 SaO2% (BldA) [Mass fraction] 100 % Alen Arroyo MD Work Phone: [facility] 12-28-2022 11:26-0400 Systolic blood pressure 158 mm[Hg] Alen Arroyo MD Work Phone: [facility] 12-28-2022 09:52-0400 Body temperature 98.01 [degF] Alen Arroyo MD Work Phone: [facility] 12-28-2022 09:52-0400 Body weight 60.4 kg Alen Arroyo MD Work Phone: [facility] 12-01-2022 10:07-0400 Body height 157.5 cm Susan Melvindale PA-C Work Phone: [facility] 12-01-2022 10:07-0400 Body temperature 98.1 [degF] Susan Melvindale PA-C Work Phone: [facility] 12-01-2022 10:07-0400 Body weight 60.42 kg Susan Melvindale PA-C Work Phone: [facility] 12-01-2022 10:07-0400 Diastolic blood pressure 86 mm[Hg] Susan Melvindale PA-C Work Phone: [facility] [facility] 12-01-2022 10:07-0400 Heart rate 89 /min Susan Melvindale PA-C Work Phone: [facility] 12-01-2022 10:07-0400 SaO2% (BldA) [Mass fraction] 98 % Susan Melvindale PA-C Work Phone: [facility] 12-01-2022 10:07-0400 Systolic blood pressure 138 mm[Hg] Susan Melvindale PA-C Work Phone: [facility] 07-20-2022 11:04-0400 Body weight 61.24 kg Frederic Luong MD Work Phone: [facility] 07-20-2022 11:04-0400 Diastolic blood pressure 78 mm[Hg] Frederic Luong MD Work Phone: [facility] 07-20-2022 11:04-0400 Heart rate 80 /min Frederic Luong MD Work Phone: [facility] 07-20-2022 11:04-0400 Respiratory rate 16 /min Frederic Luong MD Work Phone: [facility] 07-20-2022 11:04-0400 Systolic blood pressure 134 mm[Hg] Frederic Luong MD Work Phone: [facility] 07-15-2022 15:53-0400 Heart rate 78 /min [facility] 07-15-2022 15:53-0400 Respiratory rate 16 /min [facility] 07-15-2022 15:53-0400 SaO2% (BldA) [Mass fraction] 100 % [facility] 07-15-2022 13:43-0400 Body height 152.4 cm [facility] 07-15-2022 13:43-0400 Body mass index (BMI) [Ratio] 26.4 kg/m2 [facility] 07-15-2022 13:43-0400 Body temperature 96.4 [degF] [facility] 07-15-2022 13:43-0400 Body weight 61.41 kg [facility] 07-15-2022 13:43-0400 Diastolic blood pressure 72 mm[Hg] [facility] 07-15-2022 13:43-0400 Systolic blood pressure 141 mm[Hg] [facility] 07-13-2022 11:45-0400 Diastolic blood pressure 81 mm[Hg] Frederic Luong MD Work Phone: [facility] 07-13-2022 11:45-0400 Heart rate 81 /min Frederic Luong MD Work Phone: [facility] 07-13-2022 11:45-0400 Systolic blood pressure 137 mm[Hg] Frederic Luong MD Work Phone: [facility] 07-13-2022 11:40-0400 Body weight 61.69 kg Frederic Luong MD Work Phone: [facility] 07-13-2022 11:40-0400 Respiratory rate 16 /min Frederic Luong MD Work Phone: [facility] 03-31-2022 11:07-0500 Body temperature 98.01 [degF] Agus Garcia APRN.CNP Work Phone: [facility] 03-31-2022 11:07-0500 Body weight 61.6 kg Agus Garcia APRN.FERRY BOAT CAPTAIN Work Phone: [facility] 03-31-2022 11:07-0500 Diastolic blood pressure 82 mm[Hg] Agus Garcia APRN.FERRY BOAT CAPTAIN Work Phone: [facility] 03-31-2022 11:07-0500 Heart rate 82 /min Agus Garcia APRN.FERRY BOAT CAPTAIN Work Phone: [facility] 03-31-2022 11:07-0500 Respiratory rate 18 /min Agus Garcia APRN.FERRY BOAT CAPTAIN Work Phone: [facility] 03-31-2022 11:07-0500 SaO2% (BldA) [Mass fraction] 99 % Agus Garcia APRN.FERRY BOAT CAPTAIN Work Phone: [facility] 03-31-2022 11:07-0500 Systolic blood pressure 144 mm[Hg] Agus Garcia APRN.FERRY BOAT CAPTAIN Work Phone: [facility] 02-17-2022 21:44-0400 Heart rate 69 /min [facility] Work Phone: 02-17-2022 21:44-0400 Respiratory rate 18 /min [facility] Work Phone: 02-17-2022 21:44-0400 SaO2% (BldA) [Mass fraction] 100 % [facility] Work Phone: 02-17-2022 19:30-0400 Body height 152.4 cm [facility] Work Phone: 02-17-2022 19:30-0400 Body mass index (BMI) [Ratio] 25 kg/m2 [facility] Work Phone: 02-17-2022 19:30-0400 Body temperature 98.3 [degF] [facility] Work Phone: 02-17-2022 19:30-0400 Body weight 58.05 kg [facility] Work Phone: 02-17-2022 19:30-0400 Diastolic blood pressure 72 mm[Hg] [facility] Work Phone: 02-17-2022 19:30-0400 Systolic blood pressure 159 mm[Hg] [facility] Work Phone: 01-06-2022 10:07-0400 Body height 150.5 cm Moon Older CERTIFIED FIRST ASSISTANT.FERRY BOAT CAPTAIN Work Phone: [facility] 01-06-2022 10:07-0400 Body temperature 96.69 [degF] Moon Older CERTIFIED FIRST ASSISTANT.FERRY BOAT CAPTAIN Work Phone: [facility] 01-06-2022 10:07-0400 Body weight 60.78 kg Moon Older CERTIFIED FIRST ASSISTANT.FERRY BOAT CAPTAIN Work Phone: [facility] 01-06-2022 10:07-0400 Diastolic blood pressure 68 mm[Hg] Moon Older CERTIFIED FIRST ASSISTANT.FERRY BOAT CAPTAIN Work Phone: [facility] 01-06-2022 10:07-0400 Heart rate 83 /min Moon Older CERTIFIED FIRST ASSISTANT.FERRY BOAT CAPTAIN Work Phone: [facility] 01-06-2022 10:07-0400 Respiratory rate 16 /min Moon Older CERTIFIED FIRST ASSISTANT.FERRY BOAT CAPTAIN Work Phone: [facility] 01-06-2022 10:07-0400 SaO2% (BldA) [Mass fraction] 99 % Moon Older CERTIFIED FIRST ASSISTANT.FERRY BOAT CAPTAIN Work Phone: [facility] 01-06-2022 10:07-0400 Systolic blood pressure 110 mm[Hg] Moon Older CERTIFIED FIRST ASSISTANT.FERRY BOAT CAPTAIN Work Phone: [facility] 08-12-2021 11:37-0400 Diastolic blood pressure 66 mm[Hg] [facility] Work Phone: 08-12-2021 11:37-0400 Heart rate 63 /min [facility] Work Phone: 08-12-2021 11:37-0400 Respiratory rate 16 /min [facility] Work Phone: 08-12-2021 11:37-0400 SaO2% (BldA) [Mass fraction] 100 % [facility] Work Phone: 08-12-2021 11:37-0400 Systolic blood pressure 131 mm[Hg] [facility] Work Phone: 08-12-2021 09:24-0400 Body height 154.94 cm [facility] Work Phone: 08-12-2021 09:24-0400 Body mass index (BMI) [Ratio] 22.4 kg/m2 [facility] Work Phone: 08-12-2021 09:24-0400 Body temperature 97.1 [degF] [facility] Work Phone: 08-12-2021 09:24-0400 Body weight 53.97 kg [facility] Work Phone: 07-05-2021 10:10-0400 Body temperature 98.29 [degF] Riaz Flores CERTIFIED FIRST ASSISTANT.FERRY BOAT CAPTAIN Work Phone: [facility] 07-05-2021 10:10-0400 Body weight 60.42 kg Riaz Flores CERTIFIED FIRST ASSISTANT.FERRY BOAT CAPTAIN Work Phone: [facility] 07-05-2021 10:10-0400 Diastolic blood pressure 82 mm[Hg] Riaz Flores CERTIFIED FIRST ASSISTANT.FERRY BOAT CAPTAIN Work Phone: [facility] 07-05-2021 10:10-0400 Heart rate 75 /min Riaz Sandra CERTIFIED FIRST ASSISTANT.FERRY BOAT CAPTAIN Work Phone: [facility] 07-05-2021 10:10-0400 Respiratory rate 18 /min Riaz Flores CERTIFIED FIRST ASSISTANT.FERRY BOAT CAPTAIN Work Phone: [facility] 07-05-2021 10:10-0400 SaO2% (BldA) [Mass fraction] 98 % Riaz Flores CERTIFIED FIRST ASSISTANT.FERRY BOAT CAPTAIN Work Phone: [facility] 07-05-2021 10:10-0400 Systolic blood pressure 138 mm[Hg] Riaz Flores CERTIFIED FIRST ASSISTANT.FERRY BOAT CAPTAIN Work Phone: [facility] Encounters Encounter Date Encounter Type Care Provider Facility Start: 12-12-2024 End: 12-12-2024 ambulatory MOON FELIZ Facility:[facility] Start: 12-12-2024 End: 12-12-2024 Office outpatient visit 25 minutes Moon Feliz CERTIFIED FIRST ASSISTANT.FERRY BOAT CAPTAIN Work Phone: [facility] [place] Comment on above: 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 Frederic Luong MD Work Phone: -Emergency Department Work Phone: Start: 10-20-2024 End: 10-20-2024 ambulatory Sher Carlson RN [employer] Comment on above: ACM CECILY RN ( Chart review per payor request) Start: 10-18-2024 End: 10-18-2024 Emergency department patient visit Dr. Frederic Luong MD Work Phone: -Emergency Department Work Phone: Start: 08-27-2024 End: 08-27-2024 Office outpatient visit 25 minutes Moon Feliz CERTIFIED FIRST ASSISTANT.FERRY BOAT CAPTAIN Work Phone: [facility] [place] Comment on above: Situational mixed an xiety and depressive disorder (Primary Dx); Tremor Start: 08-27-2024 End: 08-27-2024 ambulatory MOON FELIZ Facility:[facility] Start: 07-30-2024 End: 07-30-2024 Patient encounter procedure Moon Quijanoerger CERTIFIED FIRST ASSISTANT.FERRY BOAT CAPTAIN Work Phone: [facility] [place] Comment on above: Situational mixed an xiety and depressive disorder (Primary Dx); Insomnia, unspecified type Start: 07-30-2024 End: 07-30-2024 ambulatory MOON FELIZ Facility:[facility] Start: 06-25-2024 End: 06-25-2024 ambulatory MOON CAMACHOTRAY Facility:[facility] Start: 06-25-2024 End: 06-25-2024 Patient encounter procedure Moon Feliz CERTIFIED FIRST ASSISTANT.FERRY BOAT CAPTAIN Work Phone: [facility] [place] Comment on above: Situational mixed an xiety and depressive disorder (Primary Dx) Start: 05-28-2024 End: 05-28-2024 ambulatory MOON FELIZ Facility:[facility] Start: 05-28-2024 End: 05-28-2024 Patient encounter procedure Moon Chappell Tray CERTIFIED FIRST ASSISTANT.FERRY BOAT CAPTAIN Work Phone: [facility] [place] Comment on above: Situational mixed an xiety and depressive disorder (Primary Dx); Hyperlipidemia, unspecified hyperlipidemia type; Vitamin D deficiency Start: 05-23-2024 End: 05-23-2024 ambulatory MOON FELIZ Facility:[facility] Start: 05-16-2024 End: 05-16-2024 Telephone encounter Moon Chappell Tray CERTIFIED FIRST ASSISTANT.FERRY BOAT CAPTAIN Work Phone: [facility] [place] Comment on above: Patient Update Start: 05-16-2024 End: 05-16-2024 ambulatory FREDERIC LUONG Facility:[facility] Start: 05-16-2024 End: 05-16-2024 Office outpatient visit 25 minutes Frederic Luong MD Work Phone: [facility] [place] Comment on above: Urinary hesitancy (P rimary Dx); Dysuria; Pelvic pain Start: 04-30-2024 End: 04-30-2024 ambulatory MOONHenrique MCCRAYR Facility:[facility] Start: 04-30-2024 End: 04-30-2024 Patient encounter procedure Moon Feliz APRN.FERRY BOAT CAPTAIN Work Phone: [facility] [place] Comment on above: Medicare annual well ness visit, subsequent (Primary Dx); Situational mixed anxiety and depressive disorder; Age-related osteoporosis without current pathological fracture; Hyperlipidemia, mixed; Vitamin D deficiency; Screening for depression; Encounter for screening examination for other mental health and behavioral disorders; Encounter for immunization Start: 04-27-2024 End: 04-27-2024 Telephone encounter Harrison Figueroa SHILO.FERRY BOAT CAPTAIN Work Phone: [facility] Comment on above: Results Start: 04-24-2024 End: 04-24-2024 ambulatory FREDERIC LUONG Facility:[facility] Start: 04-24-2024 End: 04-24-2024 Patient encounter procedure Agus Toribio ALO.FERRY BOAT CAPTAIN Work Phone: [facility] Comment on above: Urinary urgency (Ludivina roe Dx) Start: 03-24-2024 End: 03-24-2024 Office outpatient visit 25 minutes Frederic Luong MD Work Phone: [facility] [place] Comment on above: Rib contusion, left, subsequent encounter (Primary Dx); Elevated blood pressure reading Start: 03-24-2024 End: 03-24-2024 ambulatory Farideh Flores RN Work Phone: [employer] Start: 03-20-2024 End: 03-20-2024 Emergency department patient visit [facility] Facility:[facility] Start: 01-23-2024 End: 01-23-2024 ambulatory Moon Feliz APRN.FERRY BO[employer] CAPTAIN Work Phone: [facility] [place] Comment on above: results Start: 01-23-2024 End: 01-23-2024 E-mail encounter from caregiver Moon Feliz APRN.FERRY BO[employer] CAPTAIN Work Phone: [facility] [place] Start: 01-23-2024 End: 01-23-2024 Telephone encounter Frederic Luong MD Work Phone: [facility] [place] Comment on above: Results Start: 01-21-2024 End: 01-21-2024 ambulatory Frederic Luong MD Work Phone: [facility] [place] Comment on above: Hematuria Start: 01-21-2024 End: 01-21-2024 Patient encounter procedure Moon Feliz CERTIFIED FIRST ASSISTANT.FERRY BOAT CAPTAIN Work Phone: [facility] [place] Comment on above: Gross hematuria (Ludivina roe Dx); Pelvic pain Start: 01-07-2024 End: 01-07-2024 ambulatory Farideh Flores RN Work Phone: [employer] Comment on above: DOMONIQUE CARMONA RN ( ED utilization review per request of payer) Start: 12-30-2023 End: 12-30-2023 Emergency department patient visit Parmjit Bingham Facility:[facility] Start: 12-29-2023 End: 12-29-2023 Patient encounter procedure Agus Garcia CERTIFIED FIRST ASSISTANT.FERRY BOAT CAPTAIN Work Phone: [facility] Comment on above: Pain, dental (Primar y Dx) Start: 10-24-2023 ambulatory Marlon Brooks MA [facility] [place] Comment on above: Medicare Wellness Ex am Start: 10-09-2023 Telephone encounter Frederic funk MD Work Phone: [facility] [place] Comment on above: Fall Start: 10-08-2023 End: [...] Frederic vargas MD Work Phone: [facility] Start: 08-31-2023 End: 08-31-2023 ambulatory PJ RYAN Facility:[facility] Start: 08-27-2023 E-mail encounter fro m caregiver Pj Ryan MD Work Phone: Orthopaedics Start: 08-27-2023 End: 08-27-2023 Patient encounter procedure Pj Ryan MD Work Phone: Orthopaedics Comment on above: Post op appointments Trigger middle finge r of right hand Start: 08-27-2023 Telephone encounter Pj dean MD Work Phone: Orthopaedics Comment on above: Schedule Surgery Start: 07-01-2023 End: 07-01-2023 [facility] Start: 07-01-2023 End: 07-01-2023 Patient encounter procedure Riaz Flores APRN.CNP Work Phone: [facility] Comment on above: Procedure not adrianne d out (Primary Dx) Start: 06-04-2023 End: 06-04-2023 Patient encounter procedure Frederic Luong MD Work Phone: [facility] Comment on above: Trigger middle finge r of right hand (Primary Dx); Memory changes; Need for influenza vaccination; Age-related osteoporosis without current pathological fracture Start: 04-13-2023 End: 04-13-2023 [facility] Start: 12-28-2022 End: 12-28-2022 [...] Frederic funk MD Work Phone: [facility] [place] Comment on above: Orders Start: 11-15-2022 Refill Moon Older CERTIFIED FIRST ASSISTANT .FERRY BOAT CAPTAIN Work Phone: [facility] [place] Comment on above: Refill Request Start: 11-10-2022 Telephone encounter Frederic funk MD Work Phone: [facility] [place] Comment on above: Cancelled Request Start: 08-01-2022 Documentation procedure Mammog mindy Coordinator [facility] Start: 08-01-2022 Letter encounter Mammography Coordinator [facility] Department Start: 08-01-2022 End: 08-01-2022 Subsequent hospital visit by physician Screen Mammo [facility] Comment on above: Encounter for screen ing mammogram for malignant neoplasm of breast [Z12.31] Start: 07-20-2022 End: 07-20-2022 Patient encounter procedure Frederic Luogn MD Work Phone: [facility] [place] Comment on above: Acute leg pain, righ t (Primary Dx) Start: 07-17-2022 Non-patient / Non-visit Dr. Elizabeth Luong Work Phone: [facility] Start: 07-17-2022 End: 07-17-[address] Frederic Luong Work Phone: [facility] Work Phone: Start: 07-17-2022 End: 07-17-[address] Frederic Luong Work Phone: [facility]Cardiov[facility]cula r Services Start: 07-17-2022 Telephone encounter Frederic funk MD Work Phone: [facility] [place] Comment on above: Results; results Start: 07-16-2022 ambulatory Estefania Jimenez RN NURS E CHECKER[facility] Comment on above: Leg Pain Start: 07-15-2022 End: 07-15-2022 Emergency department patient visit [facility] Start: 07-13-2022 End: 07-13-2022 Subsequent hospital visit by physician Xr [facility] Work Phone: Radiology Comment on above: Acute leg pain, righ t [M79.604] Start: 07-13-2022 End: 07-13-2022 Patient encounter procedure Frederic Luong MD Work Phone: [facility] [place] Comment on above: Acute leg pain, righ t (Primary Dx); Special screening for malignant neoplasms, colon; Encounter for screening mammogram for malignant neoplasm of breast; Screening for osteoporosis; Abnormal gait Start: 06-20-2022 ambulatory Frederic vargas MD Work Phone: [facility] [place] Comment on above: Colon Cancer Screeni ng Start: 06-20-2022 E-mail encounter fro m caregiver Frederic Luong MD Work Phone: [facility] [place] Start: 06-16-2022 ambulatory Caitie Leon MA [facility] Comment on above: Population Health Na vigation Outreach ([employer] Care Gaps ) Start: 04-13-2022 ambulatory [facility] Paul [place] [facility] Comment on above: Population Health Na vigation Outreach ([employer] Medicare/) Start: 03-31-2022 End: 03-31-2022 Subsequent hospital visit by physician Mirella [facility] [place] Work Phone: Radiology Comment on above: Pain [R52] Start: 03-31-2022 End: 03-31-2022 Patient encounter procedure Agus Garcia APRN.FERRY BOAT CAPTAIN Work Phone: [facility] Comment on above: Pain (Primary Dx) Start: 02-28-2022 ambulatory Pollyharoldo Connor [place] [facility] Comment on above: Population Health Na vigation Outreach ([employer] Medicare/) Start: 02-17-2022 End: 02-17-2022 Emergency department patient visit [facility] Start: 01-06-2022 End: 01-06-2022 Patient encounter procedure Moon Ferris APRN.FERRY BOAT CAPTAIN Work Phone: [facility] [place] Comment on above: Preop exam for inter nal medicine (Primary Dx); Hyperlipidemia, mixed; Irritable bowel syndrome, unspecified type; Encounter for immunization Start: 01-06-2022 End: 01-06-2022 Patient encounter status Moon Older CERTIFIED FIRST ASSISTANT.FERRY BOAT CAPTAIN Work Phone: [facility] [place] Start: 12-26-2021 ambulatory Caitie Leon MA [facility] Comment on above: Population Health Na vigation Outreach ([employer] Care Gaps ) Start: 11-17-2021 End: 11-17-2021 Subsequent hospital visit by physician Xr [facility] Work Phone: Radiology Comment on above: Acute pain of right knee [M25.561] Start: 10-12-2021 ambulatory Frederic vargas MD Work Phone: [facility] [place] Start: 08-22-2021 ambulatory Polly Connor [facility] Comment on above: Population Health Na vigation Outreach ([employer] Medicare ) Start: 08-12-2021 End: 08-12-2021 Emergency department patient visit [facility] Start: 07-05-2021 End: 07-05-2021 Subsequent hospital visit by physician Xr [facility] Work Phone: Radiology Comment on above: Cough [R05.9] Start: 07-05-2021 End: 07-05-2021 Patient encounter procedure Riaz Flores CERTIFIED FIRST ASSISTANT.FERRY BOAT CAPTAIN Work Phone: [facility] Comment on above: Cough (Primary Dx) Procedures Date Procedure Procedure Detail Performing Clinician Start: 12-06-2024 CT cervical spine wi thout contrast Dr. Frederic Luong MD Work Phone: Start: 12-06-2024 CT of head without contrast Dr. Frederic Lunog MD Work Phone: Start: 12-06-2024 X-ray of knee, four or more views Dr. Frederic Luong MD Work Phone: Start: 05-23-2024 Lipid 1996 panel - S salo or Plasma Moon Feliz CERTIFIED FIRST ASSISTANT.FERRY BOAT CAPTAIN Work Phone: Start: 05-16-2024 Urnls dip stick/tabl et rgnt auto w/o microscopy Frederic Luong MD Work Phone: Start: 04-30-2024 [place]ER[place] COVI D-19 VACCINE AGE 12+ YR (COMIRNATY) Moon Feliz CERTIFIED FIRST ASSISTANT.FERRY BOAT CAPTAIN Work Phone: Start: 04-30-2024 Adult depression scr eening assessment Moon Feliz CERTIFIED FIRST ASSISTANT.FERRY BOAT CAPTAIN Work Phone: Start: 04-24-2024 Urnls dip stick/tabl et rgnt auto w/o microscopy Agus Garcia CERTIFIED FIRST ASSISTANT.FERRY BOAT CAPTAIN Work Phone: Start: 01-21-2024 Urnls dip stick/tabl et rgnt auto w/o microscopy Moon Feliz CERTIFIED FIRST ASSISTANT.FERRY BOAT CAPTAIN Work Phone: Start: 07-01-2023 Radiologic examinati on [...] Radex hand minimum 3 views Agus Garcia CERTIFIED FIRST ASSISTANT.FERRY BOAT CAPTAIN Work Phone: Start: 02-17-2022 X-ray of radius and ulna Start: 01-06-2022 INFLUENZA SEASONAL QUADRIVALENT HIGH DOSE AGE 65+ Moon Older CERTIFIED FIRST ASSISTANT.FERRY BOAT CAPTAIN Work Phone: Start: 01-06-2022 Lipid 1996 panel - S salo or Plasma Alen Arroyo MD Work Phone: Start: 11-17-2021 Radiologic exam knee complete 4/more views Stacey Don CERTIFIED FIRST ASSISTANT.FERRY BOAT CAPTAIN Work Phone: Start: 08-12-2021 X-ray of lumbar spin e, two or three views Start: 08-12-2021 Plain x-ray of pelvi s and lower extremity Start: 07-05-2021 Radiologic exam ches t 2 views Riaz Flores CERTIFIED FIRST ASSISTANT.FERRY BOAT CAPTAIN Work Phone: Start: 02-06-2014 Mammography Riaz thomson CERTIFIED FIRST ASSISTANT.FERRY BOAT CAPTAIN Work Phone: Start: 05-23-2013 Colonoscopy Riaz gonzalesno CERTIFIED FIRST ASSISTANT.FERRY BOAT CAPTAIN Work Phone: Plan of Treatment Date Care Activity Detail Author Start: 03-31-2032 Urine microalbumin profile [facility] Start: 05-23-2029 Lipid panel Lipid Screening [facility] Start: 12-29-2027 Colonoscopy Colonoscopy [facility] Start: 12-29-2027 Colorectal Cancer Screening Colorectal Cancer Screening [facility] Start: 12-29-2027 Screening for malign ant neoplasm of colon [facility] Start: 09-07-2027 RSV Vaccine (1 - 1-d ose 75+ series) RSV Vaccine (1 - 1-dose 75+ series) [facility] Start: 01-20-2027 Diabetes Screening Diabetes Screenin g [facility] Start: 01-06-2027 Lipid 1996 panel - Serum or Plasma Lipid Screening [facility] Start: 01-06-2027 Lipid panel Lipid Screening [facility] Start: 01-06-2027 LIPID SCREEN LIPID SCREEN [facility] Start: 07-13-2025 DIABETES SCREEN DIABETES SCREEN [facility] Start: 07-13-2025 Diabetes Screening Diabetes Screenin g [facility] Start: 04-30-2025 Anxiety Screening Anxiety Screening [facility] Start: 04-30-2025 Depression Screening Depression Scre ening [facility] Start: 04-30-2025 Shingrix Vaccine (1 of 2) Shingrix Vaccine (1 of 2) [facility] Comment on above: Postponed from 09/06 (Declined at this time) Start: 01-07-2025 End: 01-07-2025 Patient encounter procedure 01/07/2025 6:40 PM EDT Office Visit [facility] [address] [place] [address] Moon Feliz, CERTIFIED FIRST ASSISTANT.FERRY BOAT CAPTAIN [address] [facility] [place] [address] follow up 4 weeks [facility] [place] Comment on above: follow up 4 weeks Start: 01-06-2025 DIABETES SCREEN DIABETES SCREEN [facility] Start: 12-15-2024 Influenza vaccination Influenza Vacc ine (#1) [facility] Start: 12-12-2024 End: 12-12-2024 Patient encounter procedure 12/12/2024 9:50 AM EDT Appointment Mammogram [address] [place] [address] Encounter for screening mammogram for breast cancer [Z12.31] Mammogram Comment on above: Encounter for screen ing mammogram for breast cancer [Z12.31] Start: 12-12-2024 End: 12-12-2024 Patient encounter procedure 12/12/2024 8:40 AM EDT Office Visit [facility] [address] [place] [address] Moon Feliz, CERTIFIED FIRST ASSISTANT.FERRY BOAT CAPTAIN [address] [place] [address] Follow Up [facility] [place] Comment on above: Follow Up Start: 12-06-2024 [facility] Start: 10-28-2024 Covid-19 Vaccine ( season) Covid-19 Vaccine ( season) [facility] Start: 10-18-2024 [facility] Start: 10-14-2024 Pneumococcal Vaccine : 50+ (1 of 1 - PCV) Pneumococcal Vaccine: 50+ (1 of 1 - PCV) [facility] Comment on above: Postponed from 09/06 (Declined at this time) Start: 10-01-2024 End: 10-01-2024 Patient encounter procedure 10/01/2024 4:40 PM EDT Office Visit [facility] [place] [address] [place] [address] Moon Feliz, CERTIFIED FIRST ASSISTANT.FERRY BOAT CAPTAIN [address] [place] [address] follow up 4 weeks [facility] [place] Comment on above: follow up 4 weeks Start: 08-27-2024 End: 08-27-2024 Patient encounter procedure 08/27/2024 6:40 PM EDT Office Visit [facility] [place] [address] [place] [address] Moon Feliz, CERTIFIED FIRST ASSISTANT.FERRY BOAT CAPTAIN [address] [place] [address] follow up 4 weeks [facility] [place] Comment on above: follow up 4 weeks Start: 08-25-2024 End: 11-24-2024 Lipid 1996 panel - Serum or Plasma LIPID PANEL BASIC Lab Routine Hyperlipidemia, unspecified hyperlipidemia type Expected: 08/25/2024 (Approximate), Expires: 11/24/2024 [facility] Work Phone: Comment on above: Expected: 08/25/2024 (Approximate), Expires: 11/24/2024 Start: 08-01-2024 Screening for osteoporosis Bone Density Screening [facility] Start: 07-30-2024 End: 07-30-2024 Patient encounter procedure 07/30/2024 6:00 PM EDT Office Visit [facility] [place] [address] [place] [address] Moon Feliz, CERTIFIED FIRST ASSISTANT.FERRY BOAT CAPTAIN [address] [place] [address] follow up 1 month [facility] [place] Comment on above: follow up 1 month Start: 06-25-2024 End: 06-25-2024 Patient encounter procedure 06/25/2024 4:40 PM EDT Office Visit [facility] [place] [address] [place] [address] Moon Feliz, CERTIFIED FIRST ASSISTANT.FERRY BOAT CAPTAIN [address] [place] [address] follow up 1 month [facility] [place] Comment on above: follow up 1 month Start: 05-28-2024 End: 05-28-2024 Patient encounter procedure 05/28/2024 4:20 PM EST Office Visit [facility] [place] [address] [place] [address] Moon Feliz, CERTIFIED FIRST ASSISTANT.FERRY BOAT CAPTAIN [address] [place] [address] follow up 4 weeks [facility] [place] Comment on above: follow up 4 weeks Start: 04-30-2024 End: 04-30-2024 Patient encounter procedure 04/30/2024 4:20 PM EST Office Visit [facility] [place] [address] [place] [address] Moon Feliz, CERTIFIED FIRST ASSISTANT.FERRY BOAT CAPTAIN [address] [place] [address] medicare wellness [facility] [place] Comment on above: medicare wellness Start: 04-30-2024 End: 07-30-2024 25-hydroxyvitamin D3 [Mass/volume] in Serum or Plasma VITAMIN D 25 HYDROXY Lab Routine Vitamin D deficiency Expected: 04/30/2024, Expires: 07/30/2024 [facility] Comment on above: Expected: 04/30/2024 , Expires: 07/30/2024 Start: 04-30-2024 End: 07-30-2024 Lipid 1996 panel - Serum or Plasma LIPID PANEL BASIC Lab Routine Hyperlipidemia, mixed Expected: 04/30/2024, Expires: 07/30/2024 [facility] Work Phone: Comment on above: Expected: 04/30/2024 , Expires: 07/30/2024 Start: 04-16-2024 Advance Directive Discussion Advance Directive Discussion [facility] Start: 03-24-2024 End: 03-24-2024 Patient encounter procedure 03/24/2024 7:20 PM EST Office Visit [facility] [place] [address] [place] [address] Frederic Luong MD [address] [place] [address] ED follow up [facility] [place] Comment on above: ED follow up Start: 03-04-2024 End: 03-04-2024 Patient encounter procedure 03/04/2024 1:20 PM EST Office Visit [facility] [place] [address] [place] [address] Moon Feliz, CERTIFIED FIRST ASSISTANT.FERRY BOAT CAPTAIN [address] [place] [address] 6 month follow up [facility] [place] Comment on above: 6 month follow up Start: 12-16-2023 Covid-19 Vaccine ( season) Covid-19 Vaccine ( season) [facility] Start: 12-16-2023 Covid-19 Vaccine ( season) Covid-19 Vaccine () [facility] Start: 12-16-2023 Influenza vaccination Influenza Vacc ine (#1) [facility] Start: 10-08-2023 End: 10-08-2023 Patient encounter procedure 10/08/2023 9:30 AM EDT Office Visit Orthopaedics [address] [place] [address] Pj Ryan MD [address] [facility] [place] [address] Post op right middle trigger finger release [facility] Comment on above: Post op right middle trigger finger release Start: 09-11-2023 End: 09-11-2023 Patient encounter procedure 09/11/2023 11:45 AM EDT Office Visit Orthopaedics [address] [address] Lizz Bo PA-C [address] [place] [address] Post op right middle trigger finger release [facility] Comment on above: Post op right middle trigger finger release Start: 09-03-2023 End: 09-03-2023 Patient encounter procedure 09/03/2023 1:20 PM EDT Office Visit [facility] [place] [address] [facility] [place] [address] Moon Feliz, CERTIFIED FIRST ASSISTANT.FERRY BOAT CAPTAIN [address] [place] [address] 3 month follow up-medicare wellness [facility] [place] Comment on above: 3 month follow up-[facility] Start: 09-02-2023 End: 12-02-2023 Cobalamin (Vitamin B12) [Mass/volume] in Serum or Plasma VITAMIN B12 BLOOD Lab Routine Memory changes Expected: 09/02/2023, Expires: 12/02/2023 [facility] Work Phone: Comment on above: Expected: 09/02/2023 , Expires: 12/02/2023 Start: 09-02-2023 End: 12-02-2023 Comprehensive metabolic 2000 panel - Serum or Plasma COMP METABOLIC PANEL Lab Routine Memory changes Expected: 09/02/2023, Expires: 12/02/2023 [facility] Work Phone: Comment on above: Expected: 09/02/2023 , Expires: 12/02/2023 Start: 09-02-2023 End: 12-02-2023 Thyrotropin [Units/volume] in Serum or Plasma TSH BLD Lab Routine Memory changes Expected: 09/02/2023, Expires: 12/02/2023 [facility] Work Phone: Comment on above: Expected: 09/02/2023 , Expires: 12/02/2023 Start: 08-31-2023 End: 08-31-2023 Admission to same day surgery center 08/31/2023 11:40 AM EDT - 08/31/2023 12:27 PM EDT Surgery [facility] [address] [place] [address] Pj Ryan MD [address] [place] [address] RELEASE TRIGGER FINGER [facility] Comment on above: RELEASE TRIGGER FING ER Start: 08-31-2023 Subsequent hospital visit by physician 08/31/2023 11:40 AM EDT Hospital Encounter [facility] [address] [place] [address] Pj Ryan MD [address] [place] [address] Trigger middle finger of right hand [M65.331] [facility] Comment on above: Trigger middle finge r of right hand [M65.331] Start: 08-31-2023 End: 08-31-2023 Tendon sheath incision RELEASE TRIGGER FINGER Trigger middle finger of right hand 08/31/2023 11:40 AM EDT ME OR Start: 08-02-2023 Mammography [facility] Start: 08-02-2023 Screening for malign ant neoplasm of breast Mammogram Screening [facility] Start: 07-14-2023 COVID-19 VACCINE (3 - Booster for Pfizer series) COVID-19 VACCINE (3 - Booster for Pfizer series) [facility] Comment on above: Postponed from 12/24 (Declined at this time) Start: 07-14-2023 COVID-19 VACCINE (3 - Pfizer series) COVID-19 VACCINE (3 - Pfizer series) [facility] Comment on above: Postponed from 12/24 (Declined at this time) Start: 07-01-2023 [facility] Start: 04-16-2023 Advance Directive Discussion Advance Directive Discussion [facility] Start: 04-13-2023 [facility] Start: 04-13-2023 Unlisted procedure dentoalveolar structures UNLISTED [facility] Start: 12-15-2022 Covid-19 Vaccine ( season) Covid-19 Vaccine () [facility] Start: 12-15-2022 Influenza vaccination [facility] Start: 07-17-2022 End: 07-18-2023 US LEG VEIN DVT UNL VAS LAB US LEG VEIN DVT UNL VAS LAB Vascular Lab Routine Acute leg pain, right Expected: 07/17/2022, Expires: 07/18/2023 [facility] Work Phone: Comment on above: Expected: 07/17/2022 , Expires: 07/18/2023 Start: 07-13-2022 End: 09-12-2022 Alkaline phosphatase [Enzymatic activity/volume] in Serum or Plasma [facility] Work Phone: Comment on above: Expected: 07/13/2022 , Expires: 09/12/2022 Start: 07-13-2022 End: 09-12-2022 Basic metabolic 2000 panel - Serum or Plasma [facility] Work Phone: Comment on above: Expected: 07/13/2022 , Expires: 09/12/2022 Start: 07-13-2022 End: 09-12-2022 Erythrocyte sedimentation rate [facility] Work Phone: Comment on above: Expected: 07/13/2022 , Expires: 09/12/2022 Start: 07-13-2022 End: 09-12-2022 Fibrin D-dimer FEU [Mass/volume] in Platelet poor plasma [facility] Work Phone: Comment on above: Expected: 07/13/2022 , Expires: 09/12/2022 Start: 04-16-2022 ADVANCE DIRECTIVE DISCUSSION ADVANCE DIRECTIVE DISCUSSION [facility] Start: 01-06-2022 End: 03-08-2022 Comprehensive metabolic 2000 panel - Serum or Plasma [facility] Work Phone: Comment on above: Expected: 01/06/2022 , Expires: 03/08/2022 Start: 01-06-2022 End: 03-08-2022 Lipid 1996 panel - Serum or Plasma [facility] Work Phone: Comment on above: Expected: 01/06/2022 , Expires: 03/08/2022 Start: 12-15-2021 Influenza vaccination [facility] Start: 04-16-2021 ADVANCE DIRECTIVE DISCUSSION ADVANCE DIRECTIVE DISCUSSION [facility] Start: 03-31-2021 COVID-19 VACCINE (3 - Booster for Pfizer series) COVID-19 VACCINE (3 - Booster for Pfizer series) [facility] Start: 12-24-2020 COVID-19 VACCINE (3 - Booster for Pfizer series) COVID-19 VACCINE (3 - Booster for Pfizer series) [facility] Start: 12-15-2020 Influenza vaccination INFLUENZA (#1) [facility] Start: 04-08-2020 LIPID SCREEN LIPID SCREEN [facility] Start: 05-23-2018 Colonoscopy COLONOSCOPY [facility] Start: 05-23-2018 COLORECTAL CANCER SCREENING COLORECTAL CANCER SCREENING [facility] Start: 11-03-2017 DIABETES SCREEN DIABETES SCREEN [facility] Start: 2017 BONE DENSITY BONE DENSITY [facility] Start: 2017 Pneumococcal Vaccine : 65+ (1 - PCV) Pneumococcal Vaccine: 65+ (1 - PCV) [facility] Start: 2017 Pneumococcal Vaccine : 65+ (1 of 1 - PCV) Pneumococcal Vaccine: 65+ (1 of 1 - PCV) [facility] Start: 2017 PNEUMOCOCCAL: 65+ (1 - PCV) PNEUMOCOCCAL: 65+ (1 - PCV) [facility] Start: 2017 PNEUMOVAX AGE 65 AND OVER WITH 5YR LOOKBACK (#1) PNEUMOVAX AGE 65 AND OVER WITH 5YR LOOKBACK (#1) [facility] Start: 03-09-2017 Urine microalbumin profile DTAP,TDAP,TD (2 - Td or Tdap) [facility] Start: 02-06-2015 Mammography MAMMOGRAM [facility] Start: 2012 RSV Vaccine (1 - 1-d ose 60+ series) RSV Vaccine (1 - 1-dose 60+ series) [facility] Start: 2002 Pneumococcal Vaccine : 50+ (1 of 1 - PCV) Pneumococcal Vaccine: 50+ (1 of 1 - PCV) [facility] Start: 2002 SHINGRIX VACCINE (1 of 2) SHINGRIX VACCINE (1 of 2) [facility] Start: 1997 COLOGUARD (FIT-DNA) COLOGUARD (FIT-D NA) [facility] Start: [address] COLONOGRAPHY [facility] Start: 1997 FECAL OCCULT BLOOD FECAL OCCULT BLOO D [facility] Start: 1997 Screening for malign ant neoplasm of colon [facility] Start: 1997 SIGMOIDOSCOPY SIGMOIDOSCOPY [facility] Start: 1970 Anxiety Screening Anxiety Screening [facility] Start: 1970 Depression Screening Depression Scre ening [facility] Bacteria identified in Urine by Culture URINE CULTURE Microbiology Routine Gross hematuria 01/21/2024 10:53 AM EDT [facility] Work Phone: Bacteria identified in Urine by Culture BACTERIAL CULTURE, URINE Microbiology Routine Urinary urgency 04/24/2024 1:36 PM EST [facility] Work Phone: End: 01-07-2026 BD DXA TRABECULAR BONE SCORE (TBS) BD DXA TRABECULAR BONE SCORE (TBS) Radiology Routine Age-related osteoporosis without current pathological fracture 1 Occurrences starting 12/08/2024 until 01/07/2026 [facility] Comment on above: 1 Occurrences starti ng 12/08/2024 until 01/07/2026 End: 01-07-2026 DXA Skeletal system.axial Views for bone density DXA-AXIAL SKELETON Radiology Routine Age-related osteoporosis without current pathological fracture 1 Occurrences starting 12/08/2024 until 01/07/2026 [facility] Work Phone: Comment on above: 1 Occurrences starti ng 12/08/2024 until 01/07/2026 End: 08-12-2023 DXA-AXIAL SKELETON DXA-AXIAL SKELETON Radiology Routine Screening for osteoporosis 1 Occurrences starting 07/13/2022 until 08/12/2023 [facility] Work Phone: Comment on above: 1 Occurrences starti ng 07/13/2022 until 08/12/2023 End: 08-12-2023 BEULAH SCREENING BEULAH SCREENING Radiology Routine Encounter for screening mammogram for malignant neoplasm of breast 1 Occurrences starting 07/13/2022 until 08/12/2023 [facility] Work Phone: Comment on above: 1 Occurrences starti ng 07/13/2022 until 08/12/2023 End: 10-04-2024 MG Breast Screening BEULAH SCREENING Radiology Routine Encounter for screening mammogram for breast cancer 1 Occurrences starting 09/05/2023 until 10/04/2024 [facility] Work Phone: Comment on above: 1 Occurrences starti ng 09/05/2023 until 10/04/2024 Patient Education [facility] Work Phone: Patient referral [facility] Work Phone: End: 07-14-2023 Screening colonoscopy COLONOSCOPY SCREENING Endoscopy Routine Special screening for malignant neoplasms, colon 1 Occurrences starting 07/13/2022 until 07/14/2023 [facility] Work Phone: Comment on above: 1 Occurrences starti ng 07/13/2022 until 07/14/2023 End: 11-11-2022 Screening mammography bi 2-view breast inc cad BEULAH SCREENING Radiology Routine Encounter for screening mammogram for breast cancer 1 Occurrences starting 10/12/2021 until 11/11/2022 [facility] Work Phone: Comment on above: 1 Occurrences starti ng 10/12/2021 until 11/11/2022 Urinalysis complete panel - Urine URINALYSIS, WITH MICROSCOPIC Lab Routine Gross hematuria 01/21/2024 10:53 AM EDT [facility] End: 08-12-2023 XR HIP GENERAL 3V PELV/AP/LAT RIGHT XR HIP GENERAL 3V PELV/AP/LAT RIGHT Radiology Routine Acute leg pain, right 1 Occurrences starting 07/13/2022 until 08/12/2023 [facility] Work Phone: Comment on above: 1 Occurrences starti ng 07/13/2022 until 08/12/2023 XR HIP GENERAL 3V PELV/AP/LAT RIGHT XR HIP GENERAL 3V PELV/AP/LAT RIGHT Radiology Routine Acute leg pain, right 07/13/2022 1:21 PM EDT [facility] Work Phone: End: 08-12-2023 XR KNEE GENERAL 4V AP BOTH/PA BOTH/LAT/MERC RIGHT XR KNEE GENERAL 4V AP BOTH/PA BOTH/LAT/MERC RIGHT Radiology Routine Acute leg pain, right 1 Occurrences starting 07/13/2022 until 08/12/2023 [facility] Work Phone: Comment on above: 1 Occurrences starti ng 07/13/2022 until 08/12/2023 XR KNEE GENERAL 4V A P BOTH/PA BOTH/LAT/MERC RIGHT XR KNEE GENERAL 4V AP BOTH/PA BOTH/LAT/MERC RIGHT Radiology Routine Acute leg pain, right 07/13/2022 1:21 PM EDT [facility] Work Phone: [facility] Immunizations Immunization Date Immunization Notes Care Provider Jena alarcon 04-30-2024 COVID-19 vaccine, ag e 12+ yr (PFIZER-BIONTECH COMIRNATY) Moonhenrique Feliz CERTIFIED FIRST ASSISTANT.FERRY BOAT CAPTAIN Work Phone: [facility] 04-30-2024 influenza, high dose seasonal, preservative-free Moon Tray CERTIFIED FIRST ASSISTANT.FERRY BOAT CAPTAIN Work Phone: [facility] 04-30-2024 influenza virus vaccine, unspecified formulation Sher Carlson RN [facility] 06-04-2023 influenza (HD-IIV4) vaccine, age 65+ yr, high dose, quadrivalent, PF (FLUZONE HIGH-DOSE) Frederic Luong MD Work Phone: [facility] 06-04-2023 influenza virus vaccine, unspecified formulation Marlon Brooks MA [facility] 03-31-2022 tetanus toxoid, reduced diphtheria toxoid, and acellular pertussis vaccine, adsorbed Agusaissatou Garcia CERTIFIED FIRST ASSISTANT.FERRY BOAT CAPTAIN Work Phone: [facility] 01-06-2022 influenza, high-dose , quadrivalent vaccine (FLUZONE HIGH DOSE QUADRIVALENT) Moon Barrington CERTIFIED FIRST ASSISTANT.FERRY BOAT CAPTAIN Work Phone: [facility] Work Phone: 01-06-2022 influenza virus vaccine, unspecified formulation Alen Arroyo MD Work Phone: [facility] 01-13-2015 influenza, injectabl e, quadrivalent, contains preservative Riaz Flores CERTIFIED FIRST ASSISTANT.FERRY BOAT CAPTAIN Work Phone: [facility] 12-29-2013 influenza, seasonal, injectable Riaz Flores CERTIFIED FIRST ASSISTANT.FERRY BOAT CAPTAIN Work Phone: [facility] 01-29-[address] [facility] 01-29-2013 influenza, seasonal, injectable Agus Garcia CERTIFIED FIRST ASSISTANT.FERRY BOAT CAPTAIN Work Phone: [facility] 01-29-2013 influenza, seasonal, injectable, preservative free Agus Garcia CERTIFIED FIRST ASSISTANT.FERRY BOAT CAPTAIN Work Phone: [facility] 03-09-2007 tetanus toxoid, reduced diphtheria toxoid, and acellular pertussis vaccine, adsorbed Riaz Flores CERTIFIED FIRST ASSISTANT.FERRY BOAT CAPTAIN Work Phone: [facility] Work Phone: Payers Date Payer Category Payer Medicare (Managed Care) [employer] G [employer] [id number] 2024 [facility] Health Insurance [facility] H[facility] [id number] 2024 Unknown [id number] 2023 Self-pay [id number] 2019 Medicare [employer]NA MEDICARE [employer] G[employer]US [id number] 2019-Present [phone] [address] [place] [id number] [facility] [id number] 2019 Medicare [id number] 2019 Private Health Insurance [id number] Medicare [id number] Private Health Insurance [id number] Unknown [id number] Unknown [id number] Unknown [id number] Unknown [id number] Unknown [id number] Social History Date Type Detail Facility Start: 01-06-2022 End: 12-06-2024 Tobacco smoking status NHIS Never smoked tobacco [facility] Work Phone: Start: 07-05-2021 End: 11-17-2021 Alcohol intake Current drinker of alcohol (finding) [facility] Start: 10-08-2012 History SDOH Alcohol Comment very rarely [facility] Start: 1950 Sex Assigned At Not on file [facility] Start: 06-25-2021 End: 01-06-2022 Exposure to SARS-CoV-2 (event) Not sure [facility] Work Phone: Start: 08-12-2021 End: 07-01-2023 Tobacco smoking status NHIS Unknown if ever smoked [facility] Start: 11-15-2018 None [facility] Start: 02-07-2021 Homeless [facility] Start: 11-15-2018 Non-smoker [facility] Start: 1950 Sex Assigned At Female [facility] Start: 01-06-2022 Tobacco use and exposure Smokeless tobacco non-user [facility] Work Phone: Start: 07-20-2022 History SDOH Physica l Activity DPW 0 [facility] Start: 07-20-2022 History SDOH Stress 3 [facility] Start: 07-20-2022 End: 04-25-2024 History of Social function [facility] Start: 07-20-2022 End: 04-25-2024 Social connection and isolation panel [facility] Start: 03-17-2012 In a typical week, h ow many times do you talk on the telephone with family, friends, or neighbors? Patient refused [facility] Are you now , , , , never or living with a partner? Refused [facility] Do you feel stress - tense, restless, nervous, or anxious, or unable to sleep at night because your mind is troubled all the time - these days [OSQ] To some extent [facility] (I/We) worried wheth er (my/our) food would run out before (I/we) got money to buy more. DK or Refused [facility] Start: 12-01-2022 End: 12-12-2024 Alcohol intake Ex-drinker (finding) [facility] Has the [employer], or [employer] threatened to shut off services in your home in past 12Mo No [facility] Are you now , , , , never or living with a partner? [facility] How often to you hav e a drink containing alcohol? Never [facility] Do you feel stress - tense, restless, nervous, or anxious, or unable to sleep at night because your mind is troubled all the time - these days [OSQ] Very much [facility] (I/We) worried wheth er (my/our) food would run out before (I/we) got money to buy more. Never true [facility] Functional Status Date Assessment Result Facility 11-03-2014 Are you deaf, or do you have serious difficulty hearing No 11/03/2014 8:11 AM EDT Elana Villaseñor LPN No [facility] 11-03-2014 Are you blind, or do you have serious difficulty seeing, even when wearing glasses No 11/03/2014 8:11 AM EDT Elana Villaseñor LPN No [facility] 11-03-2014 Do you have serious difficulty walking or climbing stairs No 11/03/2014 8:11 AM EDT Elana Villaseñor LPN No [facility] 11-03-2014 Do you have difficul ty dressing or bathing No 11/03/2014 8:11 AM EDT Elana Villaseñor LPN No [facility] 11-03-2014 Because of a physica l, mental, or emotional condition, do you have difficulty doing errands alone such as visiting a physician's office or shopping No 11/03/2014 8:11 AM EDT Elana Villaseñor LPN No [facility] Mental Status Date Assessment Result Facility 11-03-2014 Because of a physica l, mental, or emotional condition, do you have serious difficulty concentrating, remembering, or making decisions No 11/03/2014 8:11 AM EDT Elana Villaseñor LPN No [facility] Clinical Notes 08-14-2014 to 01-15-2025 Moon Feliz, CERTIFIED FIRST ASSISTANT.[facility] - 12/12/2024 9:33 AM EDTPatiFrederic Rainey MD - 12/08/2024 3:18 PM Dione Hill MA - 12/08/2024 1:19 PM EDT Note Date & Type Note Facility 01-15-2025 Note HNO ID: [id number] Author: ?, ?, ? Service: ? Author Type: ? Type: Progress Notes Filed: 01/15/2025 11:03 Note Text: POPULATION HEALTH NAVIGATION OUTREACH Action/FYI Patient outreach for HM due; Follow up, Flu. Awv 04/30/25 due Lvm and sent mcm to schedule Reason for Outreach Care Gap/HCC or Scheduling Wellness Visits Care Gaps due: Next Year's Annual Wellness Visit Follow-up Appointment Flu Vaccine Patient Contacted: Unable or unnecessary to reach patient: Left message MyChart message sent Navigation Signature: Jessica Locke January 15, 2025 11:01 AM [facility] 01-15-2025 Note Patient Outreach (NE TNAV) NARESHRENATE Mccoy I ([id number]) 1950 F Date Time Provider Department 01/15/25 FREDERIC LUONG During your visit today, we recorded the following information about you: Jessica Dugan 01/15/2025 11:03 AM Signed POPULATION HEALTH NAVIGATION OUTREACH Action/ Patient outreach for HM due; Follow up, Flu. Awv 04/30/25 due Lvm and sent mcm to schedule Reason for Outreach Care Gap/HCC or Scheduling Wellness Visits Care Gaps due: Next Year's Annual Wellness Visit Follow-up Appointment Flu Vaccine Patient Contacted: Unable or unnecessary to reach patient: Left message FanSnap message sent Navigation Signature: Jessica Locke January 15, 2025 11:01 AM Allergies As of Date: 01/15/2025 Noted Allergy Reaction VENLAFAXINE 12/12/2024 14 - Other: See Comments Comments: Whole body tremors MELOXICAM 10/21/2012 14 - Other: See Comments Comments: muscle tremors/spasms SEPTRA (SULFAMETHOXAZOLE-TRIMETHO*05/17 4 - Hives Date Reviewed: 12/12/2024 Reviewed by: Moon Feliz, CERTIFIED FIRST ASSISTANT.FERRY BOAT CAPTAIN - Fully Assessed Reason for Visit: Population Health Navigation Outreach [3910] Cmt: Lulu Valiente Prescriptions as of 01/15/2025 - amitriptyline (ELAVIL) 10 mg tablet Take 1-2 tablets by mouth at bedtime as needed for sedation. - sertraline (ZOLOFT) 50 mg tablet Take 1/2 tablet (25 mg) daily by mouth for the first two weeks, then take 1 tablet (50 mg) daily - ergocalciferol 50,000 unit capsule (VITAMIN D2, [...] of 06/15/2010: Problem List As Of Date 01/15/2025 Noted Resolved Irritable bowel syndrome [K58.9] 11/21/2005 [...] 06/04/2023 Encounter Status:Closed by JESSICA DUGAN on 01/15/25 [facility] 12-16-2024 Note HNO ID: [id number] Author: ZOILA LIM MA Service: ? Author Type: Wash Oil Pump Operator Type: Progress Notes Filed: 12/16/2024 09:21 Note Text: POPULATION HEALTH NAVIGATION OUTREACH Action/FYI December 16, 2024 9:16 AM Osteoporosis Management for Women Health Maintenance Due: Bone Density Screening due on 08/01/2024 Last Medicare Wellness visit was April 30, 2024 with Moon Feliz CNP Outcome: 2nd attempt Second attempt to reach patient to assist with scheduling her a DXA scan if agreeable. Voicemail is full at this time, unable to leave a message. My chart message reviewed by patient in regards to DXA on December 09, 2024 Reason for Outreach Care Gap/HCC or Scheduling Wellness Visits Care Gaps due: Medicare Annual Wellness Visit Flu Vaccine Patient Contacted: Unable or unnecessary to reach patient: Unable to leave message Navigation Signature: Zoila Lim MA December 16, 2024 9:16 AM [facility] 12-12-2024 Note HNO ID: [id number] Author: MOON FELIZ APRN.CNP Service: ? Author Type: Nurse Practitioner Type: Progress Notes Filed: 12/12/2024 09:40 Note Text: CC: Patient presents with: Follow Up: Anxiety HPI Recording using [employer] software for draft documentation of the visit was discussed with the patient/authorized goodwill representative; all questions welcomed and answered. Patient/authorized goodwill representative agreed to proceed The patient is a 74-year-old female with anxiety and depression, presenting for follow-up of medication management and evaluation of antidepressant-induced tremors. Patient was last seen for this August 2024. She was doing really well on this but had developed full body tremors. Since previous treatment with Cymbalta and Remeron were ineffective the decision was made to continue with Effexor and start propanolol to help control the tremors. Patient misunderstood and stopped the Effexor completely. She ran out of propanolol refills a few months ago. - Reports increased anxiety since discontinuation of Effexor - Full body tremors have resolved but does have some shaking in her hands when she has a panic attack or gets really nervous - She is taking Elavil at bedtime as needed to help her relax and sleep, somewhat effective but ran out of refills and has not taken in a while Review of Systems See HPI PAST MEDICAL [...] Tonsillectomy VAGINAL HYSTERECTOMY W/REMOVAL TUBES/OV 04/16/2012 ALLERGIES Venlafaxine, Meloxicam, and Septra [Sulfamethoxazole-Trimethoprim] MEDICATIONS ergocalciferol 50,000 unit [...] a day. For pain/inflammation. Take with food. amitriptyline (ELAVIL) 10 mg tablet Take 1-2 tablets by mouth at bedtime as needed for sedation. sertraline (ZOLOFT) 50 mg tablet Take 1/2 tablet (25 mg) daily by mouth for the first two weeks, then take 1 tablet (50 mg) daily FAMILY HISTORY Problem Relation Age of Onset Hypertension Mother Diabetes Mother Heart Mother Congestive Heart Failure Cataract Mother COPD Father of COPD Coronary Artery Disease Father Heart Father Cataract Sister Cataract Brother Cataract Brother Asthma Brother 2 brothers Cancer Brother metastatic, etiol? SOCIAL HISTORY[1] BP 136/80 Pulse 68 Resp 12 Wt 54.6 kg (120 lb 5.9 oz) LMP 07/03/2005 SpO2 98% BMI 23.79 kg/m? Physical Exam Vitals reviewed. Constitutional: Appearance: Normal michael (more content not included)... [facility] 12-12-2024 History of Presen t illness Narrative CC: Patient presents with: Follow Up: Anxiety HPI Recording using ambient [employer] software for draft documentation of the visit was discussed with the patient/authorized goodwill representative; all questions welcomed and answered. Patient/authorized goodwill representative agreed to proceed The patient is a 74-year-old female with anxiety and depression, presenting for follow-up of medication management and evaluation of antidepressant-induced tremors. Patient was last seen for this August 2024. She was doing really well on this but had developed full body tremors. Since previous treatment with Cymbalta and Remeron were ineffective the decision was made to continue with Effexor and start propanolol to help control the tremors. Patient misunderstood and stopped the Effexor completely. She ran out of propanolol refills a few months ago. - Reports increased anxiety since discontinuation of Effexor - Full body tremors have resolved but does have some shaking in her hands when she has a panic attack or gets really nervous - She is taking Elavil at bedtime as needed to help her relax and sleep, somewhat effective but ran out of refills and has not taken in a while Review of Systems See HPI PAST MEDICAL [...] Tonsillectomy VAGINAL HYSTERECTOMY W/REMOVAL TUBES/OV 04/16/2012 ALLERGIES Venlafaxine, Meloxicam, and Septra [Sulfamethoxazole-Trimethoprim] MEDICATIONS ergocalciferol 50,000 unit [...] a day. For pain/inflammation. Take with food. amitriptyline (ELAVIL) 10 mg tablet Take 1-2 tablets by mouth at bedtime as needed for sedation. sertraline (ZOLOFT) 50 mg tablet Take 1/2 tablet (25 mg) daily by mouth for the first two weeks, then take 1 tablet (50 mg) daily FAMILY HISTORY Problem Relation Age of Onset Hypertension Mother Diabetes Mother Heart Mother Congestive Heart Failure Cataract Mother COPD Father of COPD Coronary Artery Disease Father Heart Father Cataract Sister Cataract Brother Cataract Brother Asthma Brother 2 brothers Cancer Brother metastatic, etiol? SOCIAL HISTORY[1] BP 136/80 Pulse 68 Resp 12 Wt 54.6 kg (120 lb 5.9 oz) LMP 07/03/2005 SpO2 98% BMI 23.79 kg/m Physical Exam Vitals reviewed. Constitutional: Appearance: Normal appearance. Neurological: Mental Status: She is alert. Psychiatric: Attention and Perception: Attention normal. Mood and Affect: Mood is anxious. Affect is tearful. Speech: Speech normal. Behavior: Behavior normal. Thought Content: Thought content normal. Judgment: Judgment normal. Assessment/Plan 1. Situational mixed anxiety and depressive disorder: Symptoms persist with venlafaxine use associated with tremors, leading to medication intolerance. Discontinued both venlafaxine and propranolol due to adverse effects and completion of prior prescriptions. - Initiating sertraline 25 mg (half tablet) daily for 2 weeks, then 50 mg daily thereafter; instructed patient to follow up in 4 weeks for evaluation of efficacy and tolerance. - Discussed referral to psychiatry for further medication management if this regimen proves ineffective. - Reinforced importance of prioritizing self-care and managing external stressors. 2. Insomnia, unspecified type: Currently addressing sleep disturbance with amitriptyline at bedtime. - Authorized amitriptyline refill; instructed one to two tablets nightly as needed for sleep. - Cautioned regarding potential next-day grogginess if taken too late or if a second dose is administered. 3. Tremor: Previously noted medication-induced tremors with venlafaxine. Presently resolved for the most part; occasional mild episodes attributed to anxiety. - No pharmacologic intervention indicated at this time. Prescription instructions reviewed with patient as applicable. Potential red flag symptoms discussed with the patient. Reviewed appropriate action plan to take if red flag symptoms occur. Patient agreeable to treatment plan. Moon Feliz APRN.FERRY BOAT CAPTAIN [1] Social History Tobacco Use Smoking status: Never Smokeless tobacco: Never Vaping Use Vaping status: Never Used Substance Use Topics Alcohol use: Not Currently Drug use: No documented in this encounter [facility] 12-12-2024 Instructions Moon Feliz APRN.CNP - 12/12/2024 9:30 AM EDT - Stop taking Effexor (venlafaxine) and propranolol as you are no longer on those medications. - Begin sertraline (Zoloft): take tablet once daily for 2 weeks, then increase to 1 full tablet once daily; the prescription has been sent to your pharmacy. - Continue amitriptyline at bedtime to help you relax and sleep: take 1 tablet; if after about an hour you still feel unsettled, you may take a second tablet, but avoid taking it too late at night to prevent next-day grogginess. - Return in 4 weeks for a follow-up to check how you re doing on sertraline and to review any side effects. - If sertraline or other anxiety treatments do not provide enough relief, plan to see a psychiatrist for specialized medication management. documented in this encounter [facility] 12-09-2024 Note HNO ID: [id number] Author: ZOILA LIM MA Service: ? Author Type: Wash Oil Pump Operator Type: Progress Notes Filed: 12/09/2024 14:30 Note Text: POPULATION HEALTH NAVIGATION OUTREACH Action/I December 09, 2024 2:24 PM [facility]oporosis Management for Women Health Maintenance Due: Bone Density Screening due on 08/01/2024 Last Medicare Wellness visit was April 30, 2024 with Moon Feliz CNP Outcome: Left message on voicemail for patient to return call for scheduling assistance. My chart message also sent. Reason for Outreach Osteoporosis Management in Women Care Gaps due: Medicare Annual Wellness Visit Patient Contacted: Unable or unnecessary to reach patient: Left message MEDOVENTt message sent Navigation Signature: Zoila Lim MA December 09, 2024 2:24 PM [facility] 12-09-2024 Note HNO ID: [id number] Author: ZOILA LIM MA Service: ? Author Type: Wash Oil Pump Operator Type: Progress Notes Filed: 12/09/2024 09:53 Note Text: POPULATION HEALTH NAVIGATION OUTREACH Action/I December 09, 2024 9:30 AM Osteoporosis Management for Women DXA-AXIAL SKELETON BD DXA TRABECULAR BONE SCORE (TBS) Age-related osteoporosis without current pathological fracture [M81.0] Summary / Findings: As per above Fracture Date: 12/06/24 Last BMD Result: 08/01/22 Active Prescription to treat or prevent osteoporosis? YES Alendronate (12 months prior to the fracture date up to 6 months after the fracture date) Palliative care or Hospice in last measurement year? NO Encounter routed to provider Exclusion due to patient being on Fosamax Reason for Outreach Osteoporosis Management in Women Navigation Signature: Zoila Lim MA December 09, 2024 9:27 AM [facility] 12-08-2024 Note HNO ID: [id number] Author: FREDERIC LUONG MD Service: ? Author Type: Physician Type: Progress Notes Filed: 12/08/2024 15:19 Note Text: ASSESSMENT/PLAN: 1. Age-related osteoporosis without current pathological fracture - ICD9: 733.01, ICD10: M81.0 Please schedule. - DXA-AXIAL SKELETON - BD DXA TRABECULAR BONE SCORE (TBS) Frederic Luong MD [facility] 12-08-2024 History of Presen t illness Narrative ASSESSMENT/PLAN: 1. Age-related osteoporosis without current pathological fracture - ICD9: 733.01, ICD10: M81.0 Please schedule. - DXA-AXIAL SKELETON - BD DXA TRABECULAR BONE SCORE (TBS) Frederic Luong MD documented in this encounter [facility] 12-08-2024 Note HNO ID: [id number] Author: DIONE CHAPPELL MA Service: ? Author Type: Wash Oil Pump Operator Type: Progress Notes Filed: 12/08/2024 13:33 Note Text: POPULATION HEALTH NAVIGATION OUTREACH Action/FYI CM Pool Message: Type: ACM We are forwarding this patient to Network Navigation to schedule a [place] [employer] [facility] 12/06/24 PCP follow-up appointment [address] [facility] 12/06/24 Fall care gaps: Last office visit 08/27/24. Last wellness visit 04/30/24. Follow up was due in September - Appointment scheduled for 12/12/24. Mammogram Screening - Ordered 08/05/24. Appointment scheduled for 12/12/24. Outcome: 1st attempt. Spoke with patient. ED appointment declined. Patient will call back after she's ortho if she feels that the appointment is necessary. Reason for Outreach Community Monitoring/Network Navigator Pools AND Phone Line: CM Pool Care Gaps due: Follow-up Appointment Breast Cancer Screening Patient Contacted: Spoke to patient/parent/or legal guardian Patient identified by name and : Yes Community Monitoring/Network Navigator Pools AND Phone Line actions taken: Patient scheduled / pended orders: Follow-Up Appointment [facility] - [facility] - Encounter for screening mammogram for breast cancer [Z12.31] Navigation Signature: Dione Chappell MA December 08, 2024 1:19 PM [facility] 12-08-2024 History of Presen t illness Narrative POPULATION HEALTH NAVIGATION OUTREACH Action/FYI CM Pool Message: Type: ACM We are forwarding this patient to Network Navigation to schedule a [employer] [facility] 12/06/24 PCP follow-up appointment [address] [facility] 12/06/24 [facility] care gaps: Last office visit 08/27/24. Last wellness visit 04/30/24. Follow up was due in September - Appointment scheduled for 12/12/24. Mammogram Screening - Ordered 08/05/24. Appointment scheduled for 12/12/24. Outcome: 1st attempt. Spoke with patient. ED appointment declined. Patient will call back after she's ortho if she feels that the appointment is necessary. Reason for Outreach Community Monitoring/Network Navigator Pools & Phone Line: CM Pool Care Gaps due: Follow-up Appointment Breast Cancer Screening Patient Contacted: Spoke to patient/parent/or legal guardian Patient identified by name and : Yes Community Monitoring/Network Navigator Pools & Phone Line actions taken: Patient scheduled / pended orders: Follow-Up Appointment Breast Cancer Screening 12/12/2024 in [facility] with MOON FELIZ - Follow [facility] - Encounter for screening mammogram for breast cancer [Z12.31] Navigation Signature: Dione Chappell MA December 08, 2024 1:19 PM Summary: Chart review review per request of payor ACM CECILY RN Patient identified by name and date of . Reason for review or outreach: Chart Review Cecily Priority Emergency Department Utilization REQUESTED ACTION/FYI: Please see ED Utilization summary below A follow-up appointment is not noted in patient's record. We are forwarding this patient to Network Navigation to schedule a [place] [employer] [facility] 12/06/24 PCP follow-up appointment 1 week. Thank you Exclusion Criteria Does not meet exclusion criteria Utilization in past 6 months: # Occurrences Date Last Occurrence Hospital Admission 0 N/A Hospital Observation 0 N/A ED 5 12/06/24 SNF / Acute Rehab / LTAC 0 N/A ED DIAGNOSES/REASON(S) FOR ED USE: [facility] 12/06/24 Fall ED Salivary Gland Infection ED Salivary Gland Stones October 18, 2024 6:02am ED Abrasion ED Hematoma ED Fracture, Knee OTHER FINDINGS/SUMMARY: Rt.Knee XRay, CT brain/head, CT Spine/Cervical completed in ED, Knee immobilizer given, advised Orthopedic F/U and use of walker Patient Attributed To: HAO Payer: Lulu COLIN Action Taken: Referrals/Routed: Population Health Navigation: Appointment. Router to [facility] PO[facility] [[id number]] Emergency Department Utilization TIPS FOR SUCCESS WITH [...] Urgent care / Express care Telehealth Nurse front desk officer or Medicare provider nurse triage line Contact made with patient: No, Chart review only. Signature: Farideh RICO,RN,[facility] Software Engineer Mobile Management Contract RN [phone] documented in this encounter [facility] 12-08-2024 Note HNO ID: [id number] Author: FARIDEH FLORES RN Service: ? Author Type: Registered Nurse Type: Progress Notes Filed: 12/08/2024 12:54 Note Text: Summary: Chart review review per request of payor [facility] CECILY [facility]AC[facility] FYI: Reason for review or outreach: Chart Review Chart Review Details: Cecily Priority Chart review completed for the HEDIS measure: Osteoporosis Management in Women Who Had a Fracture (OMW) Summary / Findings: No order for Dexa Scan noted. No exclusionary criteria clearly identified REQUEST: We are bringing this patient to your attention to request your assessment and consideration for either a Bone Density (BMD) order and/or a prescription for a medication to treat or prevent osteoporosis, if appropriate. Last Bone Density was 08/01/22 HM for BMD The HEDIS Measure, Osteoporosis Management in Women Who Had a Fracture (OMW) recommends assessing female patients 67 to 85 years of age who suffered a fracture and had either a bone mineral density (BMD) test or prescription for a drug to treat osteoporosis in the six months after the fracture. Patient identified by name and date of . Patient Attributed To: E Payer: Lulu COLIN Summary / Findings: As per above Fracture Date: 12/06/24 Last BMD Result: 08/01/22 Active Prescription to treat or prevent osteoporosis? YES Alendronate (12 months prior to the fracture date up to 6 months after the fracture date) Palliative care or Hospice in last measurement year? NO Action Taken: Encounter routed to provider Exclusion due to patient being on Fosamax Contact made with patient: No, Chart review only. Farideh RICO,RN,[facility] Software Engineer Mobile Management Contract RN [phone] [facility] 12-08-2024 History of Presen t illness Narrative Summary: Chart review review per request of payor [facility] CECILY RN FYI: Reason for review or outreach: Chart Review Chart Review Details: Cecily Priority Chart review completed for the HEDIS measure: Osteoporosis Management in Women Who Had a Fracture (OMW) Summary / Findings: No order for Dexa Scan noted. No exclusionary criteria clearly identified REQUEST: We are bringing this patient to your attention to request your assessment and consideration for either a Bone Density (BMD) order and/or a prescription for a medication to treat or prevent osteoporosis, if appropriate. Last Bone Density was 08/01/22 HM for BMD The HEDIS Measure, Osteoporosis Management in Women Who Had a Fracture (OMW) recommends assessing female patients 67 to 85 years of age who suffered a fracture and had either a bone mineral density (BMD) test or prescription for a drug to treat osteoporosis in the six months after the fracture. Patient identified by name and date of . Patient Attributed To: [facility] Payer: [facility] Summary / Findings: As per above Fracture Date: 12/06/24 Last BMD Result: 08/01/22 Active Prescription to treat or prevent osteoporosis? YES Alendronate (12 months prior to the fracture date up to 6 months after the fracture date) Palliative care or Hospice in last measurement year? NO Action Taken: Encounter routed to provider Exclusion due to patient being on Fosamax Contact made with patient: No, Chart review only. Farideh RICO,RN,[facility] Software Engineer Mobile Management Contract RN [phone] documented in this encounter [facility] 12-08-2024 Note HNO ID: [id number] Author: FARIDEH FLORES RN Service: ? Author Type: Registered Nurse Type: Progress Notes Filed: 12/08/2024 12:55 Note Text: Summary: Chart review review per request of payor ACM CECILY RN Patient identified by name and date of . Reason for review or outreach: Chart Review Cecily Priority Emergency Department Utilization REQUESTED ACTION/FYI: Please see ED Utilization summary below A follow-up appointment is not noted in patient's record. We are forwarding this patient to Network Navigation to schedule a [facility] 12/06/24 PCP follow-up appointment 1 week. Thank you Exclusion Criteria Does not meet exclusion criteria Utilization in past 6 months: # Occurrences Date Last Occurrence Hospital Admission 0 N/A Hospital Observation 0 N/A ED 5 12/06/24 SNF / Acute Rehab / LTAC 0 N/A ED DIAGNOSES/REASON(S) FOR ED USE: [facility] 12/06/24 Fall ED Salivary Gland Infection ED Salivary Gland Stones October 18, 2024 6:02am ED Abrasion ED Hematoma ED Fracture, Knee OTHER FINDINGS/SUMMARY: Rt.Knee XRay, CT brain/head, CT Spine/Cervical completed in ED, Knee immobilizer given, advised Orthopedic F/U and use of walker Patient Attributed To: HAO Payer: Lulu COLIN Action Taken: Referrals/Routed: Population Health Navigation: Appointment. Router to [facility] [[id number]] Emergency Department Utilization TIPS FOR SUCCESS WITH [...] Urgent care / Express care Telehealth Nurse front desk officer or Medicare provider nurse triage line Contact made with patient: No, Chart review only. Signature: Farideh RICO,RN,[facility] Software Engineer Mobile Management Contract RN [phone] [facility] 12-08-2024 Note Patient Outreach ([facility] RENATE INFANTE I ([id number]) 1950 F Date Time Provider [facility] During your visit today, we recorded the following information about you: Farideh Flores RN 12/08/2024 12:55 PM Signed ACM CECILY RN Patient identified by name and date of . Reason for review or outreach: Chart Review Cecily Priority Emergency Department Utilization REQUESTED ACTION/FYI: Please see ED Utilization summary below A follow-up appointment is not noted in patient's record. We are forwarding this patient to Network Navigation to schedule a [employer] [facility] 12/06/24 PCP follow-up appointment 1 week. Thank you Exclusion Criteria Does not meet exclusion criteria Utilization in past 6 months: # Occurrences Date Last Occurrence Hospital Admission 0 N/A [facility] Observation 0 N/A ED 5 12/06/24 SNF / Acute Rehab / LTAC 0 N/A ED DIAGNOSES/REASON(S) FOR ED USE: [place] ED 12/06/24 Fall ED Salivary Gland Infection ED Salivary Gland Stones October 18, 2024 6:02am ED Abrasion ED Hematoma ED Fracture, Knee OTHER FINDINGS/SUMMARY: Rt.Knee XRay, CT brain/head, CT Spine/Cervical completed in ED, Knee immobilizer given, advised Orthopedic F/U and use of walker Patient Attributed To: QAE Payer: Lulu COLIN Action Taken: Referrals/Routed: Population Health Navigation: Appointment. Router to [facility] PO[facility] [[phone]] Emergency Department Utilization TIPS FOR SUCCESS WITH [...] Urgent care / Express care Telehealth Nurse front desk officer or Medicare provider nurse triage line Contact made with patient: No, Chart review only. Signature: Farideh Flores MSN,RN,[facility] Software Engineer Mobile Management Contract RN [phone] Dione Chappell MA 12/08/2024 1:33 PM Signed POPULATION HEALTH NAVIGATION OUTREACH Action/FYI CM Pool Message: Type: ACM We are forwarding this patient to Network Navigation to schedule a [place] [facility] 12/06/24 PCP follow-up appointment [address] [facility] 12/06/24 [facility] care gaps: Last office visit 08/27/24. Last wellness visit 04/30/24. Follow up was due in September - Appointment scheduled for 12/12/24. Mammogram Screening - Ordered 08/05/24. Appointment scheduled for 12/12/24. Outcome: 1st attempt. Spoke with patient. ED appointment declined. Patient will call back after she's ortho if she feels that the appointment is necessary. Reason for Outreach Community Monitoring/Network Navigator Pools AND Phone Line: CM Pool Care Gaps due: Follow-up Appointment Breast Cancer Screening Patient Contacted: Spoke to patient/parent/or legal guardian Patient identified by name and : Yes Community Monitoring/Network Navigator Pools AND Phone Line actions taken: Patient scheduled / pended orders: Follow-Up Appointment Breast Cancer Screening 12/12/2024 in [facility] with MOON FELIZ - Follow Up 12/12/2024 in [facility] with [facility]EN [facility] - Encounter for screening mammogram for breast cancer [Z12.31] Navigation Signature: Dione Chappell MA December 08, 2024 1:19 PM Allergies As of Date: 12/08/2024 Noted Allergy Reaction MELOXICAM 10/21/2012 14 - Other: See Comments Comments: muscle tremors/spasms SEPTRA (SULFAMETHOXAZOLE-TRIMETHO*05/17 4 - Hives Date Reviewed: 08/27/2024 Reviewed by: Moon Feliz, CERTIFIED FIRST ASSISTANT.FERRY BOAT CAPTAIN - Fully Assessed Reason for Visit: patient outreach [Other] Cmt: Chart review review per request of payor Prescriptions as of 12/08/2024 - propranolol ER (INDERAL LA) 60 mg [...] of 06/15/2010: Problem List As Of Date 12/08/2024 Noted Resolved Irritable bowel syndrome [K58.9] 11/21/2005 03/24/2024 HEADACHE [R51] 0 (more content not included)... [facility] 12-08-2024 Note Patient Outreach ([facility]) RENATE INFANTE I ([id number]) 1950 F Date Time Provider Department 12/08/24 FARIDEH FLORES During your visit today, we recorded the following information about you: Farideh Flores RN 12/08/2024 12:54 PM Addendum [facility] CECILY RN FYI: Reason for review or outreach: Chart Review Chart Review Details: Cecily Priority Chart review completed for the HEDIS measure: Osteoporosis Management in Women Who Had a Fracture (OMW) Summary / Findings: No order for Dexa Scan noted. No exclusionary criteria clearly identified REQUEST: We are bringing this patient to your attention to request your assessment and consideration for either a Bone Density (BMD) order and/or a prescription for a medication to treat or prevent osteoporosis, if appropriate. Last Bone Density was 08/01/22 HM for BMD The HEDIS Measure, Osteoporosis Management in Women Who Had a Fracture (OMW) recommends assessing female patients 67 to 85 years of age who suffered a fracture and had either a bone mineral density (BMD) test or prescription for a drug to treat osteoporosis in the six months after the fracture. Patient identified by name and date of . Patient Attributed To: HAO Payer: Lulu COLIN Summary / Findings: As per above Fracture Date: 12/06/24 Last BMD Result: 08/01/22 Active Prescription to treat or prevent osteoporosis? YES Alendronate (12 months prior to the fracture date up to 6 months after the fracture date) Palliative care or Hospice in last measurement year? NO Action Taken: Encounter routed to provider Exclusion due to patient being on Fosamax Contact made with patient: No, Chart review only. Farideh Flores MSN,RN,[facility] Software Engineer Mobile Management Contract RN [phone] Zoila Lim MA 12/09/2024 9:53 AM Signed POPULATION HEALTH NAVIGATION OUTREACH Action/December 09, 2024 9:30 AM Osteoporosis Management for Women DXA-AXIAL SKELETON BD DXA TRABECULAR BONE SCORE (TBS) Age-related osteoporosis without current pathological fracture [M81.0] Summary / Findings: As per above Fracture Date: 12/06/24 Last BMD Result: 08/01/22 Active Prescription to treat or prevent osteoporosis? YES Alendronate (12 months prior to the fracture date up to 6 months after the fracture date) Palliative care or Hospice in last measurement year? NO Encounter routed to provider Exclusion due to patient being on Fosamax Reason for Outreach Osteoporosis Management in Women Navigation Signature: Zoila Lim MA December 09, 2024 9:27 AM Zoila Lim MA 12/09/2024 2:30 PM Signed POPULATION HEALTH NAVIGATION OUTREACH Action/December 09, 2024 2:24 PM Osteoporosis Management for Women Health Maintenance Due: Bone Density Screening due on 08/01/2024 Last Medicare Wellness visit was April 30, 2024 with Moon Feliz CNP Outcome: Left message on voicemail for patient to return call for scheduling assistance. My chart message also sent. Reason for Outreach Osteoporosis Management in Women Care Gaps due: Medicare Annual Wellness Visit Patient Contacted: Unable or unnecessary to reach patient: Left message Merfachart message sent Navigation Signature: Zoila Lim MA December 09, 2024 2:24 PM Zoila Lim MA 12/16/2024 9:21 AM Addendum POPULATION HEALTH NAVIGATION OUTREACH Action/FYI December 16, 2024 9:16 AM Osteoporosis Management for Women Health Maintenance Due: Bone Density Screening due on 08/01/2024 Last Medicare Wellness visit was April 30, 2024 with Moon Feliz CNP Outcome: 2nd attempt Second attempt to reach patient to assist with scheduling her a DXA scan if agreeable. Voicemail is full at this time, unable to leave a message. My chart message reviewed by patient in regards to DXA on December 09, 2024 Reason for Outreach Care Gap/HCC or Scheduling Wellness Visits Care Gaps due: Medicare Annual Wellness Visit Flu Vaccine Patient Contacted: Unable or unnecessary to reach patient: Unable to leave message Navigation Signature: Zoila Lim MA December 16, 2024 9:16 AM Allergies As of Date: 12/08/2024 Noted Allergy Reaction MELOXICAM 10/21/2012 14 - Other: See Comments Comments: muscle tremors/spasms SEPTRA (SULFAMETHOXAZOLE-TRIMETHO*05/17 4 - Hives Date Reviewed: 08/27/2024 Reviewed by: Moon Feliz, CERTIFIED FIRST ASSISTANT.SHOAIB - Fully Assessed Reason for Visit: ACM CECILY RN [[id number]] Cmt: Chart review review per request of payor Prescriptions as of 12/16/2024 - amitriptyline (ELAVIL) 10 mg tablet Take 1-2 tablets by mouth at bedtime as needed for sedation. - sertraline (ZOLOFT) 50 mg tablet Take 1/2 tablet (25 mg) daily by mouth for the first two weeks, then take 1 tablet (50 mg) daily - ergocalciferol 50,000 unit capsule (VITAMIN D2, DRISDOL) Take 1 capsule by mo (more content not included)... [facility] 12-06-[address] [facility] 12-06-2024 Radiology Diagnostic study note [facility] [address] [place] [address] Spine Cervical without Contras MR#: [id number] Acct: [id number] Name: RENATE INFANTE Rep #: [id number] : 1950 F 74 From: Amanda Dobson MD PCP: Dr. Frederic Luong MD Status: R EG ER Study:Spine Cervical without Contras Date of Exam: 12/06/24 Exam# [id number] Ordering Dr: Chris Tam MD PROCEDURE: SPINE CERVICAL WITHOUT CONTRAS 12/06/2024 REASON FOR EXAM: TRAUMA, PAIN TECHNIQUE: SPINE CERVICAL WITHOUT CONTRAS Coronal and Sagittal reconstruction series were provided. One or more dose reduction techniques were used (e.g., Automated exposure control, adjustment of the mA and/or kV according to patient size, use of iterative reconstruction technique. RADIATION DOSE SUMMARY: CTDlvol: 58 mGy DLP: 1053 mGycm FINDINGS: Normal cervical alignment. Normal vertebral body height. Disc space narrowing at C4-5 and C5-6 primarily. No fracture. Normal odontoid process. Disc space narrowing at C4-5. Left-sided foraminal narrowing at C5-6. Spinous processes intact. No spinous process deformity. No soft tissue mass CT/Spine Cervical without Contras IMPRESSION: Degenerative changes without fracture Reading Location: [facility] CC: Dr. Chris Tam MD; Dr. Frederic Luong MD ~ Tools Developer: Signed [facility] 12-06-2024 Radiology Diagnostic study note [facility] [address] [place], [place] [address] Brain/Head without Contrast MR#: [id number] Acct: [id number] Name: RENATE INFANTE Rep #: [id number] : 1950 F 74 From: Pet er Peer DO PCP: Dr. Frederic Luong MD Status: R EG ER Study:Brain/Head without Contrast Date of Exa m: 12/06/24 Exam# [id number] Ordering Dr: Chris Tam MD PROCEDURE: BRAIN/HEAD WITHOUT CONTRAST 12/06/2024 REASON FOR EXAM: TRAUMA Fell on cement. Abrasions to face and headache. Initial encounter. TECHNIQUE: BRAIN/HEAD WITHOUT CONTRAST Coronal and Sagittal reconstruction series were provided. One or more dose reduction techniques were used (e.g., Automated exposure control, adjustment of the mA and/or kV according to patient size, use of iterative reconstruction technique. RADIATION DOSE SUMMARY: CTDlvol: 44.99 mGy DLP: 812.98 mGycm COMPARISON: CT brain March 20, 2024 FINDINGS: Brain: No intra-axial or extra-axial hemorrhage. No mass, mass effect or midline shift. No acute ischemia infarct identified CSF Spaces: Ventricles and sulci are age-appropriate Sinuses/Mastoids: Single anterior ethmoid air cell opacified. Mastoid air cellsand paranasal sinuses are predominantly clear otherwise. No sinus fracture identified. Bones: No skull fracture. Small subcutaneous soft tissue hematoma in the mid forehead. No underlying fracture. CT/Brain/Head without Contrast IMPRESSION: Superficial forehead injury. No acute process in the brain. Reading Location: [facility] CC: Dr. Chris Tam MD; Dr. Frederic Luong MD ~ Tools Developer: Signed [facility] 12-06-2024 Radiology Diagnostic study note [facility] [address] [place] [id number] Knee 4 or More Views MR#: [id number] Acct: [id number] Name: RENATE INFANTE Rep #: [id number] : 1950 F 74 From: Pet er Peer DO PCP: Dr. Frederic Luong MD Status: P RE ER Study:Knee 4 or More Views Date of Exam: 12/06/24 Exam# [id number] Ordering Dr: Jacqueline ,Ed P. PROCEDURE: KNEE 4 OR MORE VIEWS 12/06/2024 REASON FOR EXAM: FALL Initial encounter. TECHNIQUE: KNEE 4 OR MORE VIEWS Laterality: Right COMPARISON: Radiograph of 02/07/2021 and 07/01/2023 FINDINGS: Bones: On the lateral view of the knee, new lucency is seen through the patella which is an incomplete fracture most likely. Not appreciated on any of the other current views. Not appreciated on the prior exams. Joints: No dislocations Effusion: Moderate right knee effusion Soft tissues: Chondrocalcinosis of menisci. Cartilage loss of the lateral compartment of the femorotibial joint bleeding subchondral sclerosis. Modified outer bridge four. Other: RAD/Knee 4 or More Views IMPRESSION: Incomplete patellar fracture suspected. Moderate osteoarthritis. Moderate joint effusion. Reading Location: [facility] CC: Dr. Frederic Luong MD; ED PHYSICIAN PROVIDER ~ Tools Developer: Signed [facility] 12-06-2024 Discharge summary Note Date/Time December 06, 2024 10:44pm [facility] Medical Records Department [address] [place] [address] Emergency Department Summary 12/06/24 MR#: [id number] Acct: [id number] Name: RENATE INFANTE Rep #:[id number] : 1950 74 From: Chris Tam MD PCP: Dr. Frederic Luong MD Status:R EG ER Location: ED HPI HPI - Fall History of Present Illness Chief Complaint: Fall Narrative Narrative: 74-year-old male presents with injury to her head and neck into her right knee when she was getting out of her car. She states she was going to [place], tripped and fell as she was getting out of her car and landed face first onto the pavement. She hit her knee on the right as well. She never [facility] into [facility]. She complains of right knee pain and swelling as well as abrasions to herface. She does not take blood thinners but her daughter states that she "bleedseasily". She believes that her tetanus immunization is current, less than 5 years. [facility] Medical History Osteoporosis Home Medications ?Medication ?Instructions [...] / Time sulfamethoxazole (From Allergy Rash Verified 12/06/24 19:44 Sept) trimethoprim (From ) Allergy Rash Verified 12/06/24 19:44 meloxicam AdvReac Other Verified 12/06/24 19:44 Surgical History History of lumbar fusion Social History household members: spouse and none Smoking Status: Never smoker substance use type: does not use ROS ROS ED ROS Narrative Review of systems positive for right knee pain and swelling. Abrasions to face. No loss of consciousness. Positive mechanical fall onto pavement. Positive headache and neck pain bilaterally. Left greater than right. EXAM Physical Exam Narrative Exam Narrative: GCS 15. ABCs are intact. Cardiovascular examination reveals a regular rate andrhythm. Lungs are clear to auscultation bilaterally. Abdomen is soft and nontender without guarding or rebound. Positive bowel sounds. Examination of the right knee shows diffuse swelling and mild tenderness of the right patellar area. No crepitance. Multiple abrasions to forehead, nose, and chin. PERRL, EOMI. No nasal septal hematoma. Neck soft and supple without vertebral point tenderness or bony step-off. Mild tenderness palpation bilateral paraspinal musculature left greater than right. Const Vital Signs: 12/06/24 19:44 12/06/24 20:39 Temperature 97.8 F Temperature Source Temporal Pulse Rate 91 Respiratory Rate 18 Respiratory Effort Normal Non-Labored Respiratory Depth Normal Respiratory Pattern Normal Blood Pressure 141/76 H Blood Pressure Mean 97 Pulse Ox 97 Oxygen Delivery Method Room Air MDM MDM MDM Narrative Medical decision making narrative: Differential diagnosis includes but not limited to knee contusion versus fracture. RN ordered x-rays obtained and interpreted by myself independently asincomplete patellar fracture with small positive ffusion. I reviewed the radiology report which confirms my independent interpretation. She states her tetanus immunization is current. Given her closed head injury without loss of consciousness, as well as neck pain, concern is for cervical strain versus fracture and closed head injury versus intracranial hemorrhage. CT of the brainand of the C-spine were obtained as well prior to her receiving any analgesia tomake sure that she does not need to be transferred for intracranial hemorrhage. Her CT of the C-spine and brain are currently pending. Patient will be signed out to Dr. Mazin Funk to check the imaging results, and make final dispositionon this patient which I anticipate could be discharged as long as her CTs are negative. She will be referred to orthopedics for her patella fracture. Disposition is pending. Patient is in stable condition. History & Record Review Discussion w/independent historian: Patient Radiography Diagnostic Testing: Clinical Impression(s) from Imaging Studies Knee X-Ray 12/06/24 20:00 IMPRESSION: Incomplete patellar fracture suspected. Moderate osteoarthritis. Moderate joint effusion. Reading [facility] Discharge Plan Triage Chief Complaint: Fall ED Provider: Chris Tam Dx/Rx/DC Orders Clinical Impression: Patella fracture, Fall, Facial abrasion, Cervical strain Prescriptions: No Action ofloxacin 0.3 % drops [...] painful area for up to 12 hrs hydrocodone-acetaminophen 5-325 mg tablet 1 tab PO Q6H PRN PRN (Reason: Pain) 3 Days Qty: 10 0RF cephalexin 500 mg capsule 500 mg PO Q6 Qty: 28 0RF Primary Care Provider: Frederic Luong Referrals: Frederic Luong MD [Primary Care Provider] - Print Language: East Timorese What to do if you have Problems For any increased pain, shortness of breath, bleeding, nausea or vomiting, chestpain, or any unexpected problems, contact your Primary Care Provider. Call [facility] ([phone]) or report to the closest Emergency Room. Call 911 if necessary. 12/06/242157 <Electronically signed by Chris Tam MD> Cosigner Signature (if applicable): CC: Dr. Frederic Luong MD ~ Signed ADDENDUM by Mazin Funk DO on 12/06/24 at 2244 The patient was signed out to me while awaiting the results of her CT head and neck. CTs of the head and cervical spine did not reveal any acute skull fracture or brain bleed or compression fracture. On reevaluation she is restingcomfortably. Therefore at this time as there is no signs of internal trauma. She does have a patellar fracture but this is closed and she is neurovascularly intact without compartment syndrome so therefore this can be stabilized with a knee immobilizer and she can follow-up with orthopedics as an outpatient 12/06/242243<Electronically signed by Mazin Funk DO> Cosigner Signature (if applicable): cc: Dr. Frederic Luong MD ~* Signed [facility] Work Phone: [phone]) 102-948807-09-2025 NoteHNO ID: [id number] Author: ANN NIXON, ? Service: ? Author Type: Patient Emergency Care Attendant Type: Progress Notes Filed: 10/22/2024 08:11 Note Text: POPULATION HEALTH NAVIGATION OUTREACH Action/FYI CM Pool Message: Type: ACM We are forwarding this patient to Network Navigation to schedule a PCP follow-up appointment following recent 10/18/2024 [place] ER visit. ED Follow up [facility] 10/18/24 Dental abscess/jaw pain HM care gaps: [...] Signature: Ann Nixon October 22, 2024 8:11 [facility]07-07-2025 NoteHNO ID: [id number] Author: DIONE CHAPPELL MA Service: ? Author Type: Wash Oil Pump Operator Type: Progress Notes Filed: 10/20/2024 15:48 Note Text: POPULATION HEALTH NAVIGATION OUTREACH Action/FYI CM Pool Message: Type: ACM We are forwarding this patient to Network Navigation to schedule a PCP follow-up appointment following recent 10/18/2024 [place] ER visit. ED Follow up [facility] 10/18/24 Dental abscess/jaw pain care gaps: Last [...] Dione Chappell MA October 20, 2024 3:40 [facility]07-07-2025 History of Present illness Narrative* Dione Chappell MA - 10/20/2024 3:40 PM EDT POPULATION HEALTH NAVIGATION OUTREACH Action/FYI CM Pool Message: Type: ACM We are forwarding this patient to Network Navigation to schedule a PCP follow-up appointment following recent 10/18/2024 [place] ER visit. ED Follow up [facility] 10/18/24 Dental abscess/jaw pain HM care gaps: Last office visit 08/27/24. Last wellness visit 04/30/24. Follow up was due in September. Mammogram Screening - Ordered 08/05/24. Outcome: Left message on patient's voice mail to return my call. Merfachart message sent. Reason for Outreach Community Monitoring/Network Navigator Pools & Phone Line: CM Pool Care Gaps due: Follow-up Appointment Breast Cancer Screening Patient Contacted: Unable or unnecessary to reach patient: Left message MEDOVENTt message sent Navigation Signature: Dione Chappell MA October 20, 2024 3:40 PM * Sher Carlson RN - 10/20/2024 2:54 PM EDT ACM CECILY RN Patient identified by name and date of . Reason for review or outreach: Chart Review Cecily Priority Emergency Department Utilization REQUESTED ACTION/FYI: A follow-up appointment is not noted in patient's record. We are forwarding this patient to [employer] Navigation to schedule a PCP follow-up appointment following recent 10/18/2024 [place] ER visit. Thank you! ED DIAGNOSES/REASON(S) FOR ED USE: 10/18/2024 [place] ER for dental abscess/jaw pain OTHER FINDINGS/SUMMARY: ER visit shoes sialolthiasis os submandibular gland, infection. Report home temperature. Vitals obtained. Prescribed Percocet upon DC and antibiotic treatment. Patient Attributed To: QAE Payer: Lulu COLIN Action Taken: Referrals/Routed: Population Health Navigation: Appointment. Router to [facility] POOL [[id number]] Contact made with patient: No, Chart review only. Signature: Sher Carlson RN documented [facility] NoteHNO ID: [id number] Author: SHER CARLSON RN Service: ? Author [...] a PCP follow-up appointment following recent 10/18/2024 [place] ER visit. Thank you! ED DIAGNOSES/REASON(S) FOR ED USE: 10/18/2024 [facility] [facility] for dental abscess/jaw pain OTHER FINDINGS/SUMMARY: ER visit shoes sialolthiasis os submandibular gland, infection. Report home temperature. Vitals obtained. Prescribed Percocet upon DC and antibiotic treatment. Patient Attributed To: HAO Payer: Lulu COLIN Action Taken: Referrals/Routed: Population Health Navigation: Appointment. Router to [facility] [[phone]] Contact made with patient: No, Chart review only. Signature: [facility] NotePatient Outreach ([facility]) RENATE INFANTE I ([id number]) 1950 F Date Time Provider Department 10/20/24 SHER CARLSON [facility] During your visit today, we recorded the [...] a PCP follow-up appointment following recent 10/18/2024 [place] ER visit. Thank you! ED DIAGNOSES/REASON(S) FOR ED USE: 10/18/2024 [place] ER for dental abscess/jaw pain OTHER FINDINGS/SUMMARY: ER visit shoes sialolthiasis os submandibular gland, infection. Report home temperature. Vitals obtained. Prescribed Percocet upon DC and antibiotic treatment. Patient Attributed To: HAO Payer: Lulu COLIN Action Taken: Referrals/Routed: Population Health Navigation: Appointment. Router to [facility] POOL [[id number]] Contact made with patient: No, Chart review only. Signature: TRACY Ash Lisa L, MA 10/20/2024 3:48 PM Signed POPULATION HEALTH NAVIGATION OUTREACH Action/I CM Pool Message: Type: ACM We are forwarding this patient to Network Navigation to schedule a PCP follow-up appointment following recent 10/18/2024 [place] ER visit. ED Follow up [facility] 10/18/24 Dental abscess/jaw pain HM care gaps: [...] 8:11 AM Signed POPULATION HEALTH NAVIGATION OUTREACH Action/I CM Pool Message: Type: ACM We are forwarding this patient to Network Navigation to schedule a PCP follow-up appointment following recent 10/18/2024 [place] ER visit. ED Follow up [facility] 10/18/24 Dental abscess/jaw pain HM care gaps: [...] Other: See Comments Comments: muscle tremors/spasms SEPTRA (SULFAMETHOXAZOLE-TRIMETHO*06/04/2023 4 - Hives Date Reviewed: 08/27/2024 Reviewed by: Moon Feliz APRN.FERRY BOAT CAPTAIN - Fully Assessed Reason for Visit: ACTa CARMONA RN [[id number]] Cmt: Chart review per payor request Prescriptions [...] [M77.30] 07/09/2008 09/05/2011 Hyperl (more content not included)...[facility]07-05-2025 Discharge summary [facility] Medical Records Department [address] [place] [address] Emergency Department Summary 10/18/24 MR#: [id number] Acct: [id number] Name: RENATE INFANTE Rep #:[id number] : 1950 74 From: Reece Valera [...] swelling; Negative for face swelling, cold sensitivity orhot sensitivity Narrative Narrative: Patient is a 74-year-old woman. She has poor dentition. She presents because she believes she has adental infection. She reports temperature up to 101 degrees. She reports difficulty opening closingher mouth. This causes her pain. She also [...] under the tongue near thelingular side of theteeth involving the sublingual papilla and the submandibular [...] pain. She probably has a stone obstructing Merrimack's duct. Since she reports temperature to 101 ?F intermittently will place on antibiotics and pain medicine. She was referred toENT. In my opinion imaging is not indicated. She also was instructed to suck on lemon drops. Discharge Plan Triage Chief Complaint: Dental ED Provider: Reece Valera Dx/Rx/DC Orders Clinical Impression: Sialolithiasis of submandibular [...] drops every hour while awake. Print Language: East Timorese Disposition Disposition: Home, Self Care What to do if you have Problems For any increased pain, shortness of breath, bleeding, nausea or vomiting, chestpain, or any unexpected problems, contact your Primary Care Provider. Call [facility] ([phone]) or report tothe closest Emergency Room. Call 911 if necessary. 10/18/24 [id number] Cosigner Signature (if applicable): CC: Dr. Frederic Luong MD ~ Signed [facility]05-23-2025 NoteHNO ID: [id number] Author: ?, ?, ? Service: ? Author Type: ? Type: Progress Notes Filed: 09/05/2024 13:02 Note Text: POPULATION HEALTH NAVIGATION OUTREACH Action/FYI Patient outreach for Hcc gaps; Mammogram, AWV. Lvm and sent mychart to close gaps. Updated appointment notes. Reason for Outreach Care Gap/HCC or Scheduling Wellness Visits Care Gaps due: Medicare Annual Wellness Visit Breast Cancer Screening Patient Contacted: Unable or unnecessary to reach patient: Left message MyChart message sent HCC related Updated appointment notes Navigation Signature: Jessica Locke September 05, 2024 12:47 [facility]05-23-2025 NotePatient Outreach (NETNAV) RENATE INFANTE I ([id number]) 1950 F Date Time Provider Department 09/05/24 FREDERIC LUONG During your visit today, we recorded the following information about you: Jessica Dugan 09/05/2024 1:02 PM Signed POPULATION HEALTH NAVIGATION [...] related Updated appointment notes Navigation Signature: Jessica Locke September 05, 2024 12:47 PM Allergies As of Date: 09/05/2024 Noted Allergy Reaction MELOXICAM 10/21/2012 14 - Other: See Comments Comments: muscle tremors/spasms SEPTRA (SULFAMETHOXAZOLE-TRIMETHO*06/04/2023 4 - Hives Date Reviewed: 08/27/2024 Reviewed by: Moon Feliz APRN.FERRY BOAT CAPTAIN - Fully Assessed Reason for Visit: Population Health Navigation Outreach [3910] Cmt: Lulu Boyceprashanth Valiente Prescriptions as of 09/05/2024 - propranolol [...] 06/04/2023 Encounter Status:Closed by JESSICA DUGAN on 09/05/24[facility]05-14-2025 NoteHNO ID: [id number] Author: MOON FELIZ APRN.FERRY BOAT CAPTAIN Service: ? Author Type: Nurse Practitioner Type: Progress Notes Filed: 08/27/2024 19:14 Note Text: CC: Patient presents with: Follow Up: Depression/insomnia HPI Recording using AkeLex software for draft documentation of the visit was discussed with the patient/authorized goodwill representative; all questions welcomed and answered. Patient/authorized goodwill representative agreed to proceed Renate is a 73-year-old female presenting for follow-up on medication management. Renate was recently increased to Effexor 150 mg approximately one month ago for anxiety and depression. She reports significant improvement in both conditions, describing them as more manageable and providing her with a "quiet space." However, she notes that the medication does [...] Cataract Sister Cataract Brother (more content not included)...[facility] 08-27-2024 History of Present illness Narrative* Moon Feliz, CERTIFIED FIRST ASSISTANT.FERRY BOAT CAPTAIN - 08/27/2024 7:08 PM EDT CC: Patient presents with: Follow Up: Depression/insomnia HPI Recording using AkeLex software for draft documentation of the visit was discussed with the patient/authorized goodwill representative; all questions welcomed and answered. Patient/authorized goodwill representative agreed to proceed Renate is a 73-year-old female presenting for follow-up on medication management. Renate was recently increased to Effexor 150 mg approximately one month ago for anxiety and depression. She reports significant improvement in both conditions, describing them as more manageable and providing her with a "quiet space." However, she notes that the medication does [...] effects of propranolol, including bradycardia, hypotension, fatigue, andlightheadedness. - Advised patient to monitor tremor and [...] Patient agreeable to treatment plan. Moon Feliz APRN.FERRY BOAT CAPTAIN documented in this encounterAdena [facility]04-22-2025 NotePatient Outreach (INTMWS) NARSEHRENATE Mccoy I ([id number]) 1950 F Date Time Provider Department 08/05/24 FREDERIC LUONG During your visit today, we recorded the following information about you: Allergies As of Date: 08/05/2024 Noted Allergy Reaction MELOXICAM 10/21/2012 14 - Other: See Comments Comments: muscle tremors/spasms SEPTRA (SULFAMETHOXAZOLE-TRIMETHO*06/04/2023 4 - Hives Date Reviewed: 07/30/2024 Reviewed by: Moon Feliz, SHILO.FERRY BOAT CAPTAIN - Fully Assessed Visit Diagnosis:Encounter for screening mammogram for breast cancer [Z12.31] Order(s):BEULAH THOMAS [1914133] Order #: [id number] FUTURE Prescriptions as of 09/05/2024 - propranolol [...] Memory changes [R41.3] 06/04/2023 Encounter Status:Closed by GupShup ZodioUSECassandra on 09/05/24[facility] 07-30-2024 NoteHNO ID: [id number] Author: MOON FELIZ APRN.FERRY BOAT CAPTAIN Service: ? Author Type: Nurse Practitioner Type: Progress Notes Filed: 07/30/2024 18:05 Note Text: CC: Patient presents with: Follow Up: 1 month HPI Recording using AkeLex software for draft documentation of the visit was discussed with the patient/authorized goodwill representative; all questions welcomed and answered. Patient/authorized goodwill representative agreed to proceed Renate is a 73-year-old female presenting for follow-up on antidepressant medication. Renate was previously on duloxetine 40 mg, which was not effective in managing her anxiety and depression. Last month, her medication was switched to venlafaxine (Effexor) 75 mg. She reports that the new medication has helped to reduce her stress levels slightly, stating it "takes the edge off," but notes that the effect does not last throughout the day. She denies experiencing any side effects such as dizziness, lightheadedness, or nausea from the venlafaxine. She continues to struggle with anxiety and depression, though she notes that these symptoms have not worsened. Her sleep quality remains poor, averaging no more than 4 hours per night, which she considers a "good night." She attributes her insomnia to an inability [...] Asthma Brother 2 brothers (more content not included)...[facility]04-16-2025 History of Present illness Narrative* Moon Feliz M, CERTIFIED FIRST ASSISTANT.FERRY BOAT CAPTAIN - 07/30/2024 6:02 PM EDT CC: Patient presents with: Follow Up: 1 month HPI Recording using AkeLex software for draft documentation of the visit was discussed with the patient/authorized goodwill representative; all questions welcomed and answered. Patient/authorized goodwill representative agreed to proceed Renate is a 73-year-old female presenting for follow-up on antidepressant medication. Renate was previously on duloxetine 40 mg, which was not effective in managing her anxiety and depression. Last month, her medication was switched to venlafaxine (Effexor) 75 mg. She reports that the new medication has helped to reduce her stress levels slightly, stating it "takes the edge off," but notes that theeffect does not last throughout the day. She denies experiencing any side effects such as dizziness, lightheadedness, or nausea from the venlafaxine. She continues to struggle with anxiety and depression, though she notes that these symptoms have not worsened. Her sleep quality remains poor, averaging no more than 4 hours per night, which she considers a "good night." She attributes her insomnia to an inability [...] feels well-rested. She denies waking up with headachesand excessive daytime sleepiness. Review of Systems See [...] mg venlafaxine as a 90-day supply to [facility] - Scheduled follow-up in four weeks to [...] which included preparing to see the patient, qksf-cx-ksbz patient care, completing clinical documentation, counseling and educating the patient/family/caregiver, and ordering medications, tests, or procedures. Moon Feliz APRN.CNP Medical Decision Making: Problems: Moderate: 1+ chronic illnesses with change Risk: Moderate: Drug management Medical Decision Making Level: 4 - Moderate documented in this encounterAdena Fayette [facility] Center04-16-2025 Instructions* Patient Instructions* Moon Feliz APRN.CNP - 07/30/2024 5:59 PM EDT We discussed [...] the 150 mg dose has been sent [facility]. - Please monitor for any side effects [...] it does not help or if you experienceany issues, please let me know. If needed, we can adjust the dose. Follow-Up: - We will follow up in four weeks to assess how you are doing with the increased venlafaxine dose and the amitriptyline for sleep. - If you experience any new or worsening symptoms before then, please contact me. documented in this encounterAdena Fayette [facility] Center03-12-2025 Instructions* Patient Instructions* Moon Feliz APRN.CNP - 06/25/2024 5:21 PM EDT - Discontinue Duloxetine (Cymbalta). - Start taking Venlafaxine (Effexor) 75 mg daily; prescription sent to [facility] pharmacy. - If unable to hop picker Venlafaxine today, take one more dose of Duloxetine tomorrow to avoid potential withdrawal symptoms. - Monitor for any side effects such as nausea with the new medication. - Next follow-up appointment in 4 weeks. documented in this encounterAdena Fayette Medical Center03-12-2025 NoteHNO ID: [id number] Author: MOON FELIZ APRN.SHOAIB Service: ? Author Type: Nurse Practitioner Type: Progress Notes Filed: 06/25/2024 17:21 Note Text: CC: Patient presents with: Follow Up: 1 month HPI Renate Infante is a 73-year-old female presenting for follow-up on duloxetine management for anxiety and depression. The patient consented to the use of AkeLex software for draft documentation of the visit consistent with [facility]?s Notice of Privacy Practices. Anxiety and Depression: - No improvement in anxiety or depression symptoms after increasing duloxetine to 40 mg. - Denies any side effects from duloxetine. - Anxiety and depression symptoms remain "pretty bad." - Renate is experiencing significant stress related [...] middle trigger finger release LAMINECTOMY W/O FFD 1/ VERT SEG LUMBAR 04/16/1985 Laminectomy, lumbar L5,S1 [...] with duloxetine 40 mg (more content not included)...[facility]03-12-2025 History of Present illness Narrative* Moon Feliz, CERTIFIED FIRST ASSISTANT.FERRY BOAT CAPTAIN - 06/25/2024 5:16 PM EDT CC: Patient presents with: Follow Up: 1 month HPI Renate Infante is a 73-year-old female presenting for follow-up on duloxetine management for anxietyand depression. The patient consented to the use of AkeLex software for draft documentation of the visit consistent with [facility] s Notice of Privacy Practices. Anxiety and Depression: - No improvement in anxiety or depression symptoms after increasing duloxetine to 40 mg. - Denies any side effects from duloxetine. - Anxiety and depression symptoms remain "pretty bad." - Renate is experiencing significant stress related [...] 0.5 oz) LMP 07/03/2005 SpO2 97% BMI 23.92kg/m Physical Exam Vitals reviewed. Constitutional: Appearance: Normal [...] venlafaxine 75 mg daily; prescription sent to [facility] pharmacy. - Educated patient on potential side effects of venlafaxine, including nausea and anxiety. - Advised patient to start venlafaxine the day after the last dose of duloxetine if able to pick upthe prescription today; otherwise, continue duloxetine for one [...] which included preparing to see the patient, hyez-fc-ycfp patient care, completing clinical documentation, counseling and educating the patient/family/caregiver, and ordering medications, tests, or procedures. Moon Feliz APRN.CNP Medical Decision Making: Problems: Moderate: New problem with uncertain prognosis Risk: Low: Low risk from testing/treatment Moderate: Drug management Medical Decision Making Level: 4 - Moderate documented in this encounterAdena Fayette [facility] Center02-12-2025 NoteHNO ID: [id number] Author: MOON FELIZ APRN.SHOAIB Service: ? Author Type: Nurse Practitioner Type: Progress Notes Filed: 05/28/2024 16:43 Note Text: CC: Patient presents with: Follow Up: 4 weeks HPI Renate Infante is a 73 year [...] exercise - Follow-up in (more content not included)...[facility] 05-28-2024 History of Present illness Narrative* Moon Feliz, CERTIFIED FIRST ASSISTANT.FERRY BOAT CAPTAIN - 05/28/2024 4:21 PM EST CC: Patient presents with: Follow Up: 4 weeks HPI Renate Infante is a 73 year [...] 1.9 oz) LMP 07/03/2005 SpO2 99% BMI 24.53kg/m Physical Exam Vitals reviewed. Constitutional: Appearance: Normal [...] - Instructed patient to contact office or zcsad-lk-xpyd after-hours promptly should condition worsen or any new symptoms appear. 2. Hyperlipidemia, unspecified hyperlipidemia type - ICD9: 272.4, ICD10: E78.5 The 10-year ASCVD risk score (Venancio GABRIEL, et al., 2019) is: 12.1% Values used [...] Patient agreeable to treatment plan. Moon Feliz APRN.FERRY BOAT CAPTAIN Medical Decision Making: Problems: Moderate: New problem with uncertain prognosis Risk: Low: Low risk from testing/treatment Moderate: Drug management Medical Decision Making Level: 4 - Moderate documented in this encounterAdena Fayette [facility] Center01-31-2025 NoteHNO ID: [id number] Author: FREDERIC LUONG MD Service: ? Author Type: Physician Type: Progress Notes Filed: 05/16/2024 14:07 Note Text: This note was created using Physicians Interactiveriter. Subjective Renate Infante is a 73 year [...] UROLOGY/URO GYNECOLOGY 3. Pelvic pain - ICD9: [id number], ICD10: R10.2 - CONSULT TO FEMALE UROLOGY/URO GYNECOLOGY Frederic Luong [facility]01-31-2025 History of Present illness Narrative* Frederic Luong MD - 05/16/2024 1:52 PM EST This note was created using Physicians Interactiveriter. Subjective Renate Infatne is a 73 year old female. She was treated for urinary tract infection in January with gross hematuria, abnormal UA and culture + for E. Coli. She reported symptoms did not resolve completely. [facility] this month. UA was normal, but urine culture was sent showing a lower CC of E. Coli. She was treatedagain but was not better. Review of Systems [...] UROLOGY/URO GYNECOLOGY 3. Pelvic pain - ICD9: [id number], ICD10: R10.2 - CONSULT TO FEMALE UROLOGY/URO GYNECOLOGY Frederic Luong MD documented in this encounterAdena Fayette [facility] Center01-31-2025 Telephone encounter Note * Telephone Encounter - Zoila Carranza MA - 05/16/2024 11:12 AM EST Patient was notified and appointment was made Zoila Carranza MA [facility]01-31-2025 Miscellaneous Notes* Telephone Encounter - Zoila Carranza MA - 05/16/2024 11:12 AM EST Patient was notified and appointment was made Zoila Carranza MA * Telephone Encounter - Moon Feliz APRN.CNP - 05/16/2024 10:29 AM EST Needs appointment Moon Feliz APRN.SHOAIB * Telephone Encounter - Ele Montoya - 05/16/2024 10:21 AM EST Patient calling in to let Moon know she is still having symptoms of a UTI. Please review and advise. Ele Montoya May 16, 2024 10:22 AM documented in this encounterAdena Fayette Medical Center01-31-2025 Telephone encounter Note * Telephone Encounter - Moon Feliz APRN.CNP - 05/16/2024 10:29 AM EST Needs appointment Moon Feliz APRN.CNP [facility]01-31-2025 Telephone encounter Note* Telephone Encounter - Ele Montoya - 05/16/2024 10:21 AM EST Patient calling in to let Moon know she is still having symptoms of a UTI. Please review and advise. Ele Montoya May 16, 2024 10:22 AM [facility]01-15-2025 Instructions* Patient Instructions* Moon Feliz APRN.CNP - 04/30/2024 4:18 PM [...] Do not abrubtly stop this medicine. Avoid o uyq-mqf-xrkzwus [facility] [place] Wart, Ephedra, Meridia, and others while on this medication. If you have any thoughts of suicide please call me or go to the Emergency Dept immediately. Contact the [facility] Suicide and Crisis Lifeline if you are experiencing mental health-related distress or are worried about a loved one who may need crisis support (visit the [facility] Suicide and Crisis Lifeline for more information at [employer]): Call or text 988 Chat at [facility] Connect with a trained crisis counselor. 988 is confidential, free, and available . Therapy/Counseling [facility] [address] [place] [address] [employer] [address] [address] [facility] [address] [place] [address] Marbella Silva [facility] [address] [address] [place] [address] [facility] [address] [address] [employer] [address] [facility] [place] [address] [address] [place] [address] Screening schedule The following prevention plan is [...] review all the medicines you take, even euxs-cwn-wcdtqsi medicines. As you get older, the way medicines work in your body can change. Some medicines, or combinations of medicines, can make you sleepy or dizzy andcan cause you to fall. 3. Have your [...] have certain medical conditions. documented in this encounterAdena Fayette Medical Center01-15-2025 NoteHNO ID: [id number] Author: MOON FELIZ APRN.SHOAIB Service: ? Author [...] MD as PCP - General Moon Feliz APRN.FERRY BOAT CAPTAIN as Freight Dispatcher (Internal Medicine) [facility] Medical/Family history review [...] 74 Resp 14 Ht 151.5 cm (4' 11.65") Wt 55.8 kg (123 lb 0.3 oz) [...] 74 Resp 14 Ht 151.5 cm (4' 11.65") Wt 55.8 kg (123 lb 0.3 oz) [...] - Instructed patient to contact office or rntid-dl-pcjg after-hours promptly should condition worsen or any new symptoms appear. - Given information regarding 988 Suicide and Crisis Lifeline 3. Age-related osteoporosis without current pathological fracture - ICD9: 733.01, ICD10: M81.0 - continue tx with alendronate (Fosamax) - Reviewed the need for Calcium and Vitamin D supplements and weight bearing (more content not included)...[facility]01-15-2025 History of Present illness Narrative* Moon Feliz, CERTIFIED FIRST ASSISTANT.FERRY BOAT CAPTAIN - 04/30/2024 4:16 PM EST Images from the original note were [...] PCP - General Moon Feliz APRN.SHOAIB as Freight Dispatcher (Internal Medicine) [facility] Medical/Family history review [...] 74 Resp 14 Ht 151.5 cm (4' 11.65") Wt 55.8 kg (123 lb 0.3 oz) [...] 74 Resp 14 Ht 151.5 cm (4' 11.65") Wt 55.8 kg (123 lb 0.3 oz) [...] - Instructed patient to contact office or uolsb-hn-ikjc after-hours promptly should condition worsen or any [...] YR, HIGH DOSE, TRIVALENT (FLUZONE HIGH-DOSE) - [employer] COVID-19 VACCINE AGE 12+ YR (COMIRNATY) Moon Feliz APRN.CNP documented in this encounterAdena Fayette Medical Center01-12-2025 Telephone encounter Note * Telephone Encounter - Harrison Figueroa APRN.CNP - 04/27/2024 9:20 AM EST Left message for patient to call back about urine culture results. Urine culture was positive and aprescription for Macrobid was sent to her [facility]. She should otherwise follow-upwith her family doctor if symptoms are not improving. 1235-patient returned phone call and she was notified of urine culture results and that prescription was called into her pharmacy. [facility]01-12-2025 Miscellaneous Notes* Telephone Encounter - Harrison Figueroa APRN.CNP - 04/27/2024 9:20 AM EST Left message for patient to call back about urine culture results. Urine culture was positive and aprescription for Macrobid was sent to her pharmacy[facility]. She should otherwise follow-upwith her family doctor if symptoms are not improving. 1235-patient returned phone call and she was notified of urine culture results and that prescription was called into her pharmacy. documented in this encounterAdena Fayette Medical Center01-09-2025 NoteHNO ID: [id number] Author: AGUS GARCIA APRN.SHOAIB Service: ? Author Type: Nurse Practitioner [...] negative and still having symptoms. Agus Garcia APRN.[facility]01-09-2025 History of Present illness Narrative* Agus Garcia APRN.[facility] - 04/24/2024 1:00 PM EST CC: Patient presents with: Urinary Problem: Pain [...] patient. Reviewed appropriate action plan to take ifred flag symptoms occur. Patient agreeable to treatment plan. Will follow up with PCP if everythingis negative and still having symptoms. Agus Garcia APRN.FERRY BOAT CAPTAIN documented in this encounterAdena Fayette Medical Center12-09-2024 NoteHNO ID: [id number] Author: FREDERIC LUONG MD Service: ? Author Type: Physician Type: Progress Notes Filed: 03/24/2024 20:04 Note Text: This note was created using Physicians Interactiveriter. Subjective Patient presents with: ER F/U: Fall [...] different NSAID. NSAID intolerance noted. One time [place] prescription was discussed. Risks of opioids were reviewed. - DICLOFENAC SODIUM 75 MG TABLET,DELAYED RELEASE - HYDROCODONE 5 MG-ACETAMINOPHEN 325 MG TABLET 2. Elevated blood pressure reading - ICD9: 796.2, ICD10: R03.0 - Possibly from pain. - Goal of BP <130/80 Frederic Luong [facility]12-09-2024 History of Present illness Narrative* Frederic Luong MD - 03/24/2024 7:24 PM EST This note was created using NoteWriter. Subjective [...] different NSAID. NSAID intolerance noted. One time [place] prescription was discussed. Risks of opioids were reviewed. - DICLOFENAC SODIUM 75 MG TABLET,DELAYED RELEASE - HYDROCODONE 5 MG-ACETAMINOPHEN 325 MG TABLET 2. Elevated blood pressure reading - ICD9: 796.2, ICD10: R03.0 - Possibly from pain. - Goal of BP <130/80 Frederic Luong MD documented in this encounterAdena Fayette Medical Center12-09-2024 NoteHNO ID: [id number] Author: DIONE CHAPPELL MA Service: ? Author Type: Wash Oil Pump Operator Type: Progress Notes Filed: 03/24/2024 12:31 Note Text: POPULATION HEALTH NAVIGATION OUTREACH Action/FYI CM Pool Message: Type: ACM We are forwarding this patient to Network Navigation to schedule a [place] 03/20/24 ED PCP follow-up appointment. Patient discharged from [facility] Discharge date: 03/20/24 Seen for: Fall Outcome: 1st attempt. Spoke with patient. Appointment scheduled for today. Reason for Outreach Community Monitoring/Network Navigator Pools AND Phone Line: ACM Patient Contacted: Spoke to patient/parent/or legal guardian Patient identified by name and : Yes Community Monitoring/Network Navigator Pools AND Phone Line actions taken: Patient scheduled: ER Follow-up 03/24/2024 in [facility] with FREDERIC LUONG - ED follow up, [facility] 03/20/24, DX:Fall, Utilization Review Navigation Signature: Dione Chappell MA March 24, 2024 12:23 [facility]12-09-2024 History of Present illness Narrative* Dione Chappell MA - 03/24/2024 12:23 PM EST POPULATION HEALTH NAVIGATION OUTREACH Action/FYI CM Pool Message: Type: ACM We are forwarding this patient to Network Navigation to schedule a [place] 03/20/24 ED PCP follow-up appointment. Patient discharged from [facility] Discharge date: 03/20/24 Seen for: Fall Outcome: 1st attempt. Spoke with patient. Appointment scheduled for today. Reason for Outreach Community Monitoring/Network Navigator Pools & Phone Line: [facility] Patient Contacted: Spoke to patient/parent/or legal guardian Patient identified by name and : Yes Community Monitoring/Network Navigator Pools & Phone Line actions taken: Patient scheduled: ER Follow-up 03/24/2024 in [facility] with FREDERIC LUONG - ED follow up, [facility] 03/20/24, DX:Fall, Utilization Review Navigation Signature: Dione Chappell MA March 24, 2024 12:23 PM * Farideh Flores RN - 03/24/2024 12:03 PM EST [facility] RN Patient identified by name and date of . Reason for review or outreach: Chart Review Cecily Priority Emergency Department Utilization REQUESTED ACTION/FYI: Please see ED Utilization summary below Noted increase utilization past 6 months for Dx reason related to Fall/Balance(2) A follow-up appointment is not noted in patient's record. We are forwarding this patient to Network Navigation to schedule a [place] 03/20/24 ED PCP follow-up appointment. Thank you Note to be added to appt for PCP utilization review Thank you Exclusion Criteria Does not meet exclusion criteria Utilization in past 6 months: # Occurrences Date Last Occurrence Hospital Admission 1 08/31/23 Hospital Observation 0 N/A ED 4 03/20/24 SNF / Acute Rehab / LTAC 0 N/A ED DIAGNOSES/REASON(S) FOR ED USE: [place] ED 03/20/24- Dx Fall [facility] ED 12/30/23-Dx Dental Abscess [facility] 10/09/23-Dx Fall [facility] ED 07/01/23-DX knee OTHER FINDINGS/SUMMARY: Noted increase utilization past 6 months for Dx reason related to Fall/Balance(2) Patient Attributed To: QAE Payer: Lulu COLIN Action Taken: Referrals/Routed: Population Health Navigation: Appointment. Router to COMMUNITY [facility]IT[facility]SS [facility]OL [[phone]] Emergency Department Utilization TIPS FOR SUCCESS WITH [...] Urgent care / Express care Telehealth Nurse front desk officer or Medicare provider nurse triage line Contact made with patient: No, Chart review only. Signature: Farideh Flores MSN,RN,[facility] Software Engineer Mobile Management Contract RN [phone] documented in this encounterAdena Fayette Medical Center12-09-2024 NoteHNO ID: [id number] Author: FARIDEH FLORES RN Service: ? Author [...] patient to Network Navigation to schedule a [place] 03/20/24 ED PCP follow-up appointment. Thank you Note to be added to appt for PCP utilization review Thank you Exclusion Criteria Does not meet exclusion criteria Utilization in past 6 months: # Occurrences Date Last Occurrence Hospital Admission 1 08/31/23 Hospital Observation 0 N/A ED 4 03/20/24 SNF / Acute Rehab / LTAC 0 N/A ED DIAGNOSES/REASON(S) FOR ED USE: [facility] [place] ED 03/20/24- Dx Fall [facility] 12/30/23-Dx Dental Abscess [facility] 10/09/23-Dx Fall [facility] 07/01/23-DX knee OTHER FINDINGS/SUMMARY: Noted increase utilization past 6 months for Dx reason related to Fall/Balance(2) Patient Attributed To: QAE Payer: Lulu COLIN Action Taken: Referrals/Routed: Population Health Navigation: Appointment. Router to [facility] [[phone]] Emergency Department Utilization TIPS FOR SUCCESS WITH [...] Urgent care / Express care Telehealth Nurse front desk officer or Medicare provider nurse triage line Contact made with patient: No, Chart review only. Signature: Farideh Flores MSN,RN,[facility] Software Engineer Mobile Management Contract RN [phone]12-09-2024 NotePatient Outreach ([facility]) RENATE INFANTE I ([id number]) 1950 F Date Time Provider Department 03/24/24 FARIDEH FLORES [facility] During your visit today, we recorded the following information about you: Farideh Flores, TRACY 03/24/2024 12:12 PM Signed [facility] RN Patient identified by name and date of . Reason for review or outreach: Chart Review Cecily Priority Emergency Department Utilization REQUESTED ACTION/FYI: Please see ED Utilization summary below Noted increase utilization past 6 months for Dx reason related to Fall/Balance(2) A follow-up appointment is not noted in patient's record. We are forwarding this patient to Network Navigation to schedule a [place] 03/20/24 ED PCP follow-up appointment. Thank you Note to be added to appt for PCP utilization review Thank you Exclusion Criteria Does not meet exclusion criteria Utilization in past 6 months: # Occurrences Date Last Occurrence Hospital Admission 1 08/31/23 Hospital Observation 0 N/A ED 4 03/20/24 SNF / Acute Rehab / LTAC 0 N/A ED DIAGNOSES/REASON(S) FOR ED USE: [facility] [place] ED 03/20/24- Dx Fall [facility] 12/30/23-Dx Dental Abscess [facility] 10/09/23-Dx Fall [facility] 07/01/23-DX knee OTHER FINDINGS/SUMMARY: Noted increase utilization past 6 months for Dx reason related to Fall/Balance(2) Patient Attributed To: QAE Payer: Lulu COLIN Action Taken: Referrals/Routed: Population Health Navigation: Appointment. Router to [facility]UNITY [facility]IT[facility]SS POOL [[phone]] Emergency Department Utilization TIPS FOR SUCCESS WITH [...] Urgent care / Express care Telehealth Nurse front desk officer or Medicare provider nurse triage line Contact made with patient: No, Chart review only. Signature: Farideh RICO,RN,[facility] Software Engineer Mobile Management Contract RN [phone] Dione Chappell MA 03/24/2024 12:31 PM Signed POPULATION HEALTH NAVIGATION OUTREACH Action/[facility] Message: Type: AC We are forwarding this patient to Network Navigation to schedule a [place] 03/20/24 ED PCP follow-up appointment. Patient discharged from [facility] Discharge date: 03/20/24 Seen for: Fall Outcome: 1st attempt. Spoke with patient. Appointment scheduled for today. Reason for Outreach Community Monitoring/Network Navigator Pools AND Phone Line: [facility] Patient Contacted: Spoke to patient/parent/or legal guardian Patient identified by name and : Yes Community Monitoring/Network Navigator Pools AND Phone Line actions taken: Patient scheduled: ER Follow-up 03/24/2024 in [facility] with FREDERIC LUONG - ED follow up, [facility] 03/20/24, DX:Fall, Utilization Review Navigation Signature: Dione Chappell MA March 24, 2024 12:23 PM Allergies As of Date: 03/24/2024 Noted Allergy Reaction MELOXICAM 10/21/2012 14 - Other: See Comments Comments: muscle tremors/spasms SEPTRA (SULFAMETHOXAZOLE-TRIMETHO*06/04/2023 4 - Hives Date Reviewed: 01/21/2024 Reviewed by: Moon Feliz, CERTIFIED FIRST ASSISTANT.FERRY BOAT CAPTAIN - Fully Assessed Prescriptions as of 03/24/2024 [...] toxicology (inconsistent) *05/05/2015 Age-relat (more content not included)...[facility]10-09-2024 Telephone encounter Note* Telephone Encounter - Lori Rausch LPN - 01/23/2024 11:33 AM EDT Spoke to Renate, given results. Patient reports she is feeling much better, no blood or clots in urine, she will finish ATB as prescribed. oLri Rausch LPN [facility]10-09-2024 Miscellaneous Notes* Telephone Encounter - Lori Rausch LPN - 01/23/2024 11:33 AM EDT Spoke to Renate given results. Patient reports she is feeling much better, no blood or clots in urine, she will finish ATB as prescribed. Lori Rausch LPN documented in this encounterAdena Fayette Medical Center10-07-2024 Instructions* Patient Instructions* Moon Feliz APRN.SHOAIB - 01/21/2024 10:56 AM EDT INSTRUCTIONS: 1. Take antibiotic exactly as directed. Be sure to take all the medication prescribed, even if yoursymptoms disappear. If you stop treatment early, the infection may not be fully treated and the symptoms could come back again. 2. Get plenty of rest. You may take acetaminophen for fever and aches. 3. Drink 6 to 8 glasses of fluids, especially water, every day. This helps wash out germs from yoururinary tract. Cranberry juice or other sources of vitamin C are also good for you. Go to the ER if: abdominal pain worsens, you are unable to urinate after four hours, high fever, vomiting that won't stop, rigid/hard abdomen. documented in this encounterAdena Fayette Medical Center10-07-2024 History of Present illness Narrative* Moon Feliz APRN.FERRY BOAT CAPTAIN - 01/21/2024 10:40 AM EDT CC: Patient presents with: Hematuria: Since 3 [...] Wt 56.3 kg (124 lb 1.9 oz) LMP07/03/2005 SpO2 95% BMI 22.70 kg/m Physical Exam [...] (suprapubic, moderate). There is no right CVA tenderness,left CVA tenderness, guarding or rebound. Skin: General: [...] worsening symptoms 2. Pelvic pain - ICD9: [id number], ICD10: R10.2 As above Prescription instructions reviewed with patient as applicable. Potential red flag symptoms discussed with the patient. Reviewed appropriate action plan to take if red flag symptoms occur. Patient agreeable to treatment plan. Moon Feliz APRN.FERRY BOAT CAPTAIN documented in this encounterAdena Fayette Medical Center10-07-2024 NoteHNO ID: [id number] Author: MOON FELIZ APRN.SHOAIB Service: ? Author [...] sounds. No murmur (more content not included)... [facility]-07-[facility] Telephone encounter Note* Telephone Encounter - Laura Flores RN - 01/21/2024 9:24 AM EDT Triage Protocol Recommended: PCP to advise/See provider within 4 hours. Patient agreeable to morning appt today with Moon Feliz CNP. Appt scheduled. Please call patient if provider has other recommendation. Reason for Disposition [1] Pain or burning with passing urine AND [2] side (flank) or back pain present Answer Assessment - Initial Assessment Questions Patient reports she has a "little cramp" in her pelvic area this morning at approx 6am. After urinating she noted blood mixed with her urine. 2nd episode this morning she urinated and there was some blood clots in toilet, no larger than dimesized. 3rd episode was about 20 min prior to this call, blood in urine continues with some pelvic pressurewith urination Denies taking any blood thinners. Reports [...] Answer* Protocols used: Urine - Blood In-ADULT-AH [facility]10-07-2024 Miscellaneous Notes* Telephone Encounter - Laura Flores RN - 01/21/2024 9:24 AM EDT Triage Protocol Recommended: PCP to advise/See provider within 4 hours. Patient agreeable to morning appt today with Moon Feliz CNP. Appt scheduled. Please call patient if provider has other recommendation. Reason for Disposition [1] Pain or burning with passing urine AND [2] side (flank) or back pain present Answer Assessment - Initial Assessment Questions Patient reports she has a "little cramp" in her pelvic area this morning at approx 6am. After urinating she noted blood mixed with her urine. 2nd episode this morning she urinated and there was some blood clots in toilet, no larger than dimesized. 3rd episode was about 20 min prior to this call, blood in urine continues with some pelvic pressurewith urination Denies taking any blood thinners. Reports [...] Urine - Blood In-ADULT-AH documented in this encounterAdena Fayette Medical Center09-23-2024 History of Present illness Narrative* Angie Roth MA - 01/07/2024 10:21 AM EDT POPULATION HEALTH NAVIGATION OUTREACH Action/January 07, 2024 1st attempt - Voicemail message left and Mychart message sent offering to assist in scheduling ED follow up appt. Postponing 2 days. ACM Cecily appt needed: Emergency Department Utilization Discharged from [place] ED 12/30/23 Seen for: Differential diagnosis includes however is not limited to: Dental abscess, irreversible pulpitis, Ludwigs angina Reason for Outreach Community Monitoring/Network Navigator Pools & Phone Line: ACM Patient Contacted: Unable or unnecessary to reach patient: Left message MyChart message sent Navigation Signature: Angie Roth MA January 07, 2024 10:21 AM * Farideh Flores RN - 01/07/2024 9:38 AM EDTSummary: ED utilization review per request of payer ACM CECILY RN Patient identified by name and date of . Reason for review or outreach: Chart Review Cecily Priority Emergency Department Utilization REQUESTED ACTION/FYI: Please see ED Utilization summary below: A follow-up appointment is noted 03/04/24 in patient's record. We are forwarding this patient to Network Navigation to schedule a [facility] 12/30/23 PCP follow-up appointment. Thank you Exclusion Criteria Does not meet exclusion criteria Utilization in past 6 months: # Occurrences Date Last Occurrence Hospital Admission 1 08/31/23 Hospital Observation 0 N/A ED 3-OON 12/30/23 SNF / Acute Rehab / LTAC 0 N/A ED DIAGNOSES/REASON(S) FOR ED USE: [facility] [place] ED 12/30/23 Differential diagnosis includes however is [...] is here for evaluation. She does see [facility] however they will not take her [...] She will continue following up with her [facility]. She is instructed return forany worsening symptoms. Stable for discharge Patient Attributed To: HAO Payer: Lulu COLIN Action Taken: Referrals/Routed: Population Health Navigation: Appointment. Router to [facility] [[phone]] Contact made with patient: No, Chart review only. Signature: Farideh RICO,RN,[facility] Software Engineer Mobile Management Contract RN [phone] documented in this encounterAdena Fayette Medical Center09-14-2024 History of Present illness Narrative* Agus Garcia APRN.FERRY BOAT CAPTAIN - 12/29/2023 10:07 AM EDT Images from the original note were not included. Subjective Patient came in with complaints of right lower tooth pain. Patient says she has significant troublewith most of her teeth. Patient says this is not the first tooth infection she has had. Patient hascalled the dentist but they are 2 weeks [...] okay with this care plan. Agus Garcia APRN.FERRY BOAT CAPTAIN documented in this encounterAdena Fayette Medical Center07-10-2024 History of Present illness Narrative* Susan Brewer RN - 10/24/2023 10:47 AM EDT Pt is going to call back once she checks dates and times with her grandson. * Marlon Brooks MA - 10/24/2023 8:51 AM EDT POPULATION HEALTH NAVIGATION OUTREACH Action/FYI Medicare Wellness - please schedule this month with Moon Reason for Outreach Care Gap/HCC or Scheduling Wellness Visits Care Gaps due: Medicare Annual Wellness Visit Patient Contacted: Unable or unnecessary to reach patient: Left message Navigation Signature: Marlon Brooks MA October 24, 2023 8:51 AM documented in this encounterAdena Fayette Medical Center06-25-2024 Telephone encounter Note * Telephone Encounter - Ta Carter RN - 10/09/2023 11:24 AM EDT Patient reports she fell last night onto [...] States she will go to ER now. [facility]06-25-2024 Miscellaneous Notes* Telephone Encounter - Ta Carter RN - 10/09/2023 11:24 AM EDT Patient reports she fell last night onto [...] go to ER now. documented in this encounterAdena Fayette Medical Center06-24-2024 History of Present illness Narrative* jP Ryan MD - 10/08/2023 10:13 AM EDT Pj Ryan MD Department of Orthopaedics Orthopaedics [address] [facility] [address] Dept: [phone] Dept October 08, 2023 CHIEF COMPLAINT: Post Op of the Right Middle Finger and 5 weeks 3 days post op Right middle triggerfinger release. HPI Patient here for post op [...] [Sulfamethoxazole-Trimethoprim] Pj Ryan MD documented in this encounterAdena Fayette Medical Center05-28-2024 History of Present illness Narrative* Lizz Bo PA-C - 09/11/2023 11:57 AM EDT Lizz Bo PA-C Department of Orthopaedics Orthopaedics [address] [place] [address] Dept: [phone] September 11, 2023 CHIEF COMPLAINT: Post Op and Pain of the Right Middle Finger. ASSESSMENT: M65.331 Trigger middle finger of right hand (primary encounter diagnosis) T81.41XA Postoperative stitch abscess SUMMARY/PLAN: Patient presents 11 days status post right middle trigger finger release. About 4 days ago, she sent a MEDOVENTt message, she had some increased redness and pain. We did send her in an oral antibiotic.She reports that she had some drainage coming from the hand. She is only been on the antibiotic forabout 3 days. Continue with the oral antibiotic, will provide her with a small refill of the pain medication. We discussed some daily soapy water soaks, ice and elevation. I would like her to call ormessage me at the completion of the antibiotics let me know how she is doing. Patient agrees to plan. Exam: Incision site is erythematous and moderately edematous. There is no active drainage. Hand is not hot to the touch, no streaking. Patient is able to form a loose composite fist extend the digit without any locking or catching. Imaging: Deferred today Ms. eRnate Infante was advised as to contrast therapies [...] [Sulfamethoxazole-Trimethoprim] This note was partially generated using [employer] voice recognition system, and there may be some incorrect words, spellings, and punctuation that were not noted in checking the note before saving. Lizz Bo PA-C documented in this encounterAdena Fayette Medical Center05-24-2024 Telephone encounter Note * Telephone Encounter - Jenn Mackey MA - 09/07/2023 3:35 PM EDT Message sent to patient in Tiangua Online[employer] encounter. [facility]05-24-2024 Miscellaneous Notes* Telephone Encounter - Jenn Mackey MA - 09/07/2023 3:35 PM EDT Message sent to patient in [employer] encounter. * Telephone Encounter - eJnn Mackey MA - 09/07/2023 2:13 PM EDT Patient did send in a [employer] message with photo. * Telephone Encounter - oJhnna Quezada RN - 09/07/2023 10:43 AM EDT Patient is 6 days s/p R middle finger trigger release. Patient contacts office and is concerned that operative site is infected. She reports redness, soreness and a "hard feeling" to area of sutures.Denies drainage.Explained to patient that due to placement of sutures and the fact that they tend to be tight in that area that this is not uncommon. Patient verbalized understanding. She will try toupload a picture to FanSnap as well. Explained to patient this nurse would send a note to Dr. Ryan/Lizz to confirm advice given. documented in this encounterAdena Fayette Medical Center05-24-2024 Telephone encounter Note * Telephone Encounter - Jenn Mackey MA - 09/07/2023 2:13 PM EDT Patient did send in a [employer] message with photo. [facility]05-24-2024 Telephone encounter Note* Telephone Encounter - Johnna Quezada RN - 09/07/2023 10:43 AM EDT Patient is 6 days s/p R middle finger trigger release. Patient contacts office and is concerned that operative site is infected. She reports redness, soreness and a "hard feeling" to area of sutures.Denies drainage.Explained to patient that due to placement of sutures and the fact that they tend to be tight in that area that this is not uncommon. Patient verbalized understanding. She will try toupload a picture to FanSn[employer] as well. Explained to patient this nurse would send a note to Dr. Ryan/Lizz to confirm advice given. [facility]05-13-2024 Telephone encounter Note* Telephone Encounter - Jenn Mackey MA - 08/27/2023 1:53 PM EDT Post op appointments have been coordinated to the new date. Surgery has been scheduled as requested on 08/31/2023. [facility]05-13-2024 Miscellaneous Notes* Telephone Encounter - Jenn Mackey MA - 08/27/2023 1:53 PM EDT Post op appointments have been coordinated to the new date. Surgery has been scheduled as requested on 08/31/2023. * Telephone Encounter - Jenn Mackey MA - 08/27/2023 1:13 PM EDT Patient called back. She is concerned about being away from home for so long since she cares foe handicapped grandchild. She is going to change the surgery to local and move it to 08/31/2023. * Telephone Encounter - Jenn Mackey MA - 08/27/2023 12:58 PM EDT I called and left a message for the patient to contact the office. * Telephone Encounter - Lora Swan MA - 08/27/2023 11:49 AM EDT Pt calling to change surgery to here at [facility] under local. 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 Pt asking that composer teaching artist call her to reschedule. Lora Swan MA * Telephone Encounter - Jenn Mackey MA - 08/27/2023 11:28 AM EDT Surgery has been scheduled as requested. * Telephone Encounter - Jenn Mackey MA - 08/27/2023 9:57 AM EDT Surgical request completed for right middle trigger finger release at [facility] on 08/29/2023. Post op appointments have been scheduled and mailed to the patient. documented in this encounterAdena Fayette Medical Center05-13-2024 Telephone encounter Note * Telephone Encounter - Jenn Mackey MA - 08/27/2023 1:13 PM EDT Patient called back. She is concerned about being away from home for so long since she cares foe handicapped grandchild. She is going to change the surgery to local and move it to 08/31/2023. [facility]05-13-20[facility] Telephone encounter Note* Telephone Encounter - Jenn Mackey MA - 08/27/2023 12:58 PM EDT I called and left a message for the patient to contact the office. [facility]05-13-2024 Telephone encounter Note* Telephone Encounter - Lora Swan MA - 08/27/2023 11:49 AM EDT Pt calling to change surgery to here at [facility] under local. 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 Pt asking that composer teaching artist call her to reschedule. Lora Swan MA [facility]05-13-2024 Telephone encounter Note* Telephone Encounter - Jenn Mackey MA - 08/27/2023 11:28 AM EDT Surgery has been scheduled as requested. [facility]05-13-[facility] Telephone encounter Note* Telephone Encounter - Jenn Mackey MA - 08/27/2023 9:57 AM EDT Surgical request completed for right middle trigger finger release at [facility] on 08/29/2023. Post op appointments have been scheduled and mailed to the patient. [facility]05-13-[facility] History of Present illness Narrative* Pj Ryan MD - 08/27/2023 9:20 AM EDT Pj Ryan MD Department of Orthopaedics Orthopaedics [address] [facility] [address] Dept: [phone] Dept August 27, 2023 CHIEF COMPLAINT: New [...] risks, benefits, alternatives and potential complications were reviewed.She understands and wishes to pursue surgery to [...] requesting physician via US mail. Frederic Luong [address] [facility] [address] Frederic Luong MD [address] [facility] [address] Pj Ryan MD documented in this encounterAdena Fayette Medical Center03-17-2024 History of Present illness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 knee wrapped to reduce swelling and take hydrocodone as needed. If you do not need it take Tylenol every 6 hours. Follow-up with your orthopedic doctor.[facility] Work Phone: Hospital Discharge instructionsAdditional Instructions You have a blockage of your submandibular gland. You also have an infection. You were placed on antibiotics and prescription for pain medicine. You need to suck on lemon drops every hour while awake.[facility] Work Phone: Hospital Discharge instructionsAdditional Instructions Wear knee immobilizer until cleared by orthopedics. Follow-up with orthopedics within the next week. Use walker to help with ambulation.[facility] Work Phone: Reason for referral (narrative)* Diagnostic Procedure Only (Routine) - Pending Review Specialty Diagnoses / Procedures Referred By Eben malcolm Referred To Contact [facility] Diagnoses Encounter for screening mammogram for breast cancer Procedures BEULAH SCREENING SCREENING MAMMOGRAPHY BI 2-VIEW BREAST INC CAD Frederic Luong MD [address] [place] [address] [facility] [address] [place] [address] Referral ID Status Reason Start Date Expiration Date Visits Requested Visits Authorized [id number] Pending Review Auto-Generat ed Referral 10/12/2021 11/11/2022 1 1 [facility] for referral (narrative)* Diagnostic Procedure Only (Urgent) - Closed Specialty Diagnoses / Procedures Referred By Contac t Referred To Contact [facility] Diagnoses Pain Procedures XR HAND GENERAL 3V PA/LAT/OBL LEFT RADEX HAND MINIMUM 3 VIEWS Agus Garcia APRN.CNP [address] [place] [address] [facility] Referral ID Status Reason Start Date Expiration Date V isits Requested Visits Authorized [id number] Closed Auto-Generate d Referral 03/31/2022 04/30/2023 1 1 [facility] for referral (narrative)* Diagnostic Procedure Only (Routine) - Closed Specialty Diagnoses / Procedures Referred By Contac t Referred To Contact [facility] Diagnoses Acute leg pain, right Procedures XR KNEE GENERAL 4V AP BOTH/PA BOTH/LAT/MERC RIGHT RADIOLOGIC EXAM KNEE COMPLETE 4/MORE VIEWS Frederic Luong MD [address] [place] [address] [facility] Referral ID Status Reason Start Date Expiration Date V isits Requested Visits Authorized [id number] Closed Auto-Generate d Referral 07/13/2022 08/12/2023 1 1 * Diagnostic Procedure Only (Routine) - Closed Specialty Diagnoses / Procedures Referred By Contac t Referred To Contact [facility] IMAGING Diagnoses Acute leg pain, right Procedures XR HIP GENERAL 3V PELV/AP/LAT RIGHT RADEX HIP UNILATERAL WITH PELVIS 2-3 VIEWS Frederic Luong MD [address] [place] [address] X[facility] Imaging Referral ID Status Reason Start Date Expiration Date V isits Requested Visits Authorized [id number] Closed Auto-Generate d Referral 07/13/2022 08/12/2023 1 1 * Outpatient Procedure (Routine) - Pending Review Specialty Diagnoses / Procedures Referred By Contac t Referred To Contact [facility] Diagnoses Special screening for malignant neoplasms, colon Procedures COLONOSCOPY SCREENING COLONOSCOPY FLX DX W/COLLJ SPEC WHEN PFRMD Frederic Luong MD [address] [place] [address] [facility] [address] [place] [address] Referral ID Status Reason Start Date Expiration Date Visits Requested Visits Authorized [id number] Pending Review Auto-Generat ed Referral 07/13/2022 07/14/2023 1 1 * Diagnostic Procedure Only (Routine) - Pending Review Specialty Diagnoses / Procedures Referred By Maliaac t Referred To Contact [facility] Diagnoses Encounter for screening mammogram for malignant neoplasm of breast Procedures BEULAH SCREENING SCREENING MAMMOGRAPHY BI 2-VIEW BREAST INC CAD Frederic Luong MD [address] [place], [place] [id number] [facility] [address] [place] [phone] Referral ID Status Reason Start Date Expiration Date Visits Requested Visits Authorized [id number] Pending Review Auto-Generat ed Referral 07/13/2022 08/12/2023 1 1 [facility] for referral (narrative)* Outpatient Procedure (Routine) - Pending Review Specialty Diagnoses / Procedures Referred By Contac t Referred To Contact [facility] Diagnoses Acute leg pain, right Procedures US LEG VEIN DVT UNL VAS LAB DUP-SCAN XTR VEINS UNILATERAL/LIMITED STUDY Frederic Luong MD [address] [place] [address] [facility] [address] [place] [address] Referral ID Status Reason Start Date Expiration Date Visits Requested Visits Authorized [id number] Pending Review Auto-Generat ed Referral 07/17/2022 07/17/2023 1 1 [facility] for referral (narrative)* Outpatient Procedure (Routine) - Closed Specialty Diagnoses / Procedures Referred By Contac t Referred To Contact [facility] Diagnoses History of colonic polyps Procedures COLONOSCOPY SCREENING COLONOSCOPY FLX DX W/COLLJ SPEC WHEN PFRMD Susan Chen PA-C [address] [place] [address] [facility] [address] [place] [address] Referral ID Status Reason Start Date Expiration Date V isits Requested Visits Authorized [id number] Closed Auto-Generate d Referral 12/01/2022 12/02/2023 1 1 T [facility] for referral (narrative)* Diagnostic Procedure Only (Routine) - Closed Specialty Diagnoses / Procedures Referred By Eben t Referred To Contact [facility] Diagnoses Encounter for screening mammogram for malignant neoplasm of breast Procedures BEULAH SCREENING SCREENING MAMMOGRAPHY BI 2-VIEW BREAST INC Frederic Miller MD [address] [place] [address] [facility] [address] [place] [address] Referral ID Status Reason Start Date Expiration Date V isits Requested Visits Authorized [id number] Closed Auto-Generate d Referral 07/13/2022 08/12/2023 1 1 [facility] for referral (narrative)* Diagnostic Procedure Only (Routine) - Pending Review Specialty Diagnoses / Procedures Referred By Eben malcolm Referred To Contact [facility] Diagnoses Encounter for screening mammogram for breast cancer Procedures BEULAH SCREENING SCREENING MAMMOGRAPHY BI 2-VIEW BREAST INC Frederic Miller MD [address] [place] [address] [facility] [address] [place] [address] Referral ID Status Reason Start Date Expiration Date Visits Requested Visits Authorized [id number] Pending Review Auto-Generat ed Referral 09/05/2023 10/04/2024 1 1 [facility] for referral (narrative)* Diagnostic Procedure Only (Routine) - Closed Specialty Diagnoses / Procedures Referred By Contac t Referred To Contact [facility] Diagnoses Acute leg pain, right Procedures XR KNEE GENERAL 4V AP BOTH/PA BOTH/LAT/MERC RIGHT RADIOLOGIC EXAM KNEE COMPLETE 4/MORE VIEWS Frederic Luong MD [address] [place] [address] [place] [address] Referral ID Status Reason Start Date Expiration Date V isits Requested Visits Authorized [id number] Closed Auto-Generate d Referral 07/13/2022 08/12/2023 1 1 * Diagnostic Procedure Only (Routine) - Closed Specialty Diagnoses / Procedures Referred By Contac t Referred To Contact [facility] Diagnoses Acute leg pain, right Procedures XR HIP GENERAL 3V PELV/AP/LAT RIGHT RADEX HIP UNILATERAL WITH PELVIS 2-3 VIEWS Frederic Luong MD [address] [place] [address] [place] [address] Referral ID Status Reason Start Date Expiration Date V isits Requested Visits Authorized [id number] Closed Auto-Generate d Referral 07/13/2022 08/12/2023 1 1 [facility] for referral (narrative)* Diagnostic Procedure Only (Urgent) - Closed Specialty Diagnoses / Procedures Referred By Contac t Referred To Contact [facility] Diagnoses Pain Procedures XR HAND GENERAL 3V PA/LAT/OBL LEFT RADEX HAND MINIMUM 3 VIEWS Agus Garcia APRN.CNP [address] [place] [address] [place] [address] Referral ID Status Reason Start Date Expiration Date V isits Requested Visits Authorized [id number] Closed Auto-Generate d Referral 03/31/2022 04/30/2023 1 1 [facility] for referral (narrative)* Diagnostic Procedure Only (Urgent) - Closed Specialty Diagnoses / Procedures Referred By Contac t Referred To Contact [facility] Diagnoses Acute pain of right knee Procedures XR KNEE GENERAL 4V AP BOTH/PA BOTH/LAT/MERC RIGHT RADIOLOGIC EXAM KNEE COMPLETE 4/MORE VIEWS Stacey oDn APRN.SHOAIB [address] [place] [address] [place] [address] Referral ID Status Reason Start Date Expiration Date V isits Requested Visits Authorized [id number] Closed Auto-Generate d Referral 11/17/2021 12/17/2022 1 1 [facility] for referral (narrative)No reason for referral information [facility]WM[facility] Work [facility]: Reason for visit Narrative* Outpatient Procedure (Routine) - Closed Specialty Diagnoses / Procedures Referred By Contac t Referred To Contact [facility] Diagnoses History of colonic polyps Procedures COLONOSCOPY SCREENING COLONOSCOPY FLX DX W/COLLJ SPEC WHEN PFRMD Susan Chen PA-C [address] [facility] [place] [address] [facility] [address] [place] [address] Referral ID Status Reason Start Date Expiration Date V isits Requested Visits Authorized [id number] Closed Auto-Generate d Referral 12/01/2022 12/02/2023 1 1 [facility] for visit Narrative* Diagnostic Procedure Only (Routine) - Closed Specialty Diagnoses / Procedures Referred By Contac t Referred To Contact [facility] Diagnoses Encounter for screening mammogram for malignant neoplasm of breast Procedures BEULAH SCREENING SCREENING MAMMOGRAPHY BI 2-VIEW BREAST INC CAD Frederic Luong MD [address] [place] [address] [facility] [address] [place] [phone] Referral ID Status Reason Start Date Expiration Date V isits Requested Visits Authorized [id number] Closed Auto-Generate d Referral 07/13/2022 08/12/2023 1 1 [facility] for visit Narrative* Diagnostic Procedure Only (Routine) - Closed Specialty Diagnoses / Procedures Referred By Contac t Referred To Contact [facility] Diagnoses Acute leg pain, right Procedures XR KNEE GENERAL 4V AP BOTH/PA BOTH/LAT/MERC RIGHT RADIOLOGIC EXAM KNEE COMPLETE 4/MORE VIEWS Frederic Luong MD [address] [place] [address] [place] [address] Referral ID Status Reason Start Date Expiration Date V isits Requested Visits Authorized [id number] Closed Auto-Generate d Referral 07/13/2022 08/12/2023 1 1 [facility] for visit Narrative* Diagnostic Procedure Only (Urgent) - Closed Specialty Diagnoses / Procedures Referred By Contac t Referred To Contact [facility] Diagnoses Pain Procedures XR HAND GENERAL 3V PA/LAT/OBL LEFT RADEX HAND MINIMUM 3 VIEWS Agus Garcia CERTIFIED FIRST ASSISTANT.[employer] [address] [place] [address] [place] [address] Referral ID Status Reason Start Date Expiration Date V isits Requested Visits Authorized [id number] Closed Auto-Generate d Referral 03/31/2022 04/30/2023 1 1 [facility] for visit Narrative* Diagnostic Procedure Only (Urgent) - Closed Specialty Diagnoses / Procedures Referred By Contac t Referred To Contact [facility] IMAG[facility] Diagnoses Acute pain of right knee Procedures XR KNEE GENERAL 4V AP BOTH/PA BOTH/LAT/MERC RIGHT RADIOLOGIC EXAM KNEE COMPLETE 4/MORE VIEWS Stacey Don, CERTIFIED FIRST ASSISTANT.[employer] [address] [place] [address] [place] [address] Referral ID Status Reason Start Date Expiration Date V isits Requested Visits Authorized [id number] Closed Auto-Generate d Referral 11/17/2021 12/17/2022 1 1 [facility] Chief Complaint and Reason for Visit Chief Complaint back Chief Complaint r arm injury Chief Complaint leg pain Chief Complaint leg pain PAIN IN RIGHT LEG Chief Complaint DENTAL Chief Complaint DENTAL KNEE Chief Complaint Admit Date dental October 18, 2024 6:02a m Chief Complaint Admit Date dental October 18, 2024 6:02a m fall December 06, 2024 7: 43pm Advance Directives No Advanced Directives Records Found Advance Directive Response Recorded Date/ Time Advance Directives No February 4:00pm Living Will No August 12, 2021 10:02am Power of Pet Caretaker No August 12 10:02am Advance Directive Response Recorded Date/ Time Advance Directives No February 4:00pm Living Will No February 17 8:31pm Power of Pet Caretaker No February 17, 2022 8:31pm Advance Directive Response Recorded Date/ Time Advance Directives No February 4:00pm Living Will No July 15, 2022 3:17pm Power of Pet Caretaker No July 15 3:17pm Advance Directive Response Recorded Date/ Time Advance Directives No February 3:00pm Living Will No April 13, 2 023 6:11pm Power of Pet Caretaker No April 13, 2023 6:11pm Advance Directive Response Recorded Date/ Time Advance Directives No February 4:00pm Living Will No July 01, 2023 3:05pm Power of Pet Caretaker No June 30 3:05pm Advance Directive Response Recorded Date/ Time Do you have a Healthcare Power of Pet Caretaker? No October 18, 2024 6:02am Advance Directives No February 4:00pm Advance Directive Response Recorded Date/ Time Do you have a Healthcare Power of Pet Caretaker? No October 18, 2024 6:02am Do you have a Healthcare Power of Pet Caretaker? No December 06, 2024 8:41pm Advance Directives No February 4:00pm Medications Administered [...] cancer Procedures CONSULT TO GENERAL SURGERY OFFICE/OUTPATIENT [facility] 60-74 MINUTES Moon Ferris APRN.CNP [address] [place] [address] Referral ID Status Reason Start Date Expiration Date Visits Requested Visits Authorized [id number] Pending Review PCP Requested Referral 11/20/2022 11/20/2023 1 1 Specialty Diagnoses / Procedures Referred By Contac t Referred To Contact Orthopedics Diagnoses Trigger middle finger of right hand Procedures CONSULT TO ORTHOPAEDICS OFFICE/OUTPATIENT [facility] 60 MINUTES Frederic Luong MD [address] [place] [address] Referral ID Status Reason Start Date Expiration Date Visits Requested Visits Authorized [id number] Authorized PCP Requested Referral 06/04/2023 06/03/2024 1 1 Specialty Diagnoses / Procedures Referred By Eben malcolm Referred To Contact Diagnoses Urinary hesitancy Dysuria Pelvic pain Procedures CONSULT TO FEMALE UROLOGY/URO GYNECOLOGY Frederic Luong MD [address] [place] [address] Referral ID Status Reason Start Date Expiration Date Visits Requested Visits Authorized [id number] Authorized PCP Requested Referral 05/16/2024 05/16/2025 1 [...] or prosecute any alcohol or drug abuse patient.[facility] the event this information is protected by the Federal Confidentiality of Alcohol and Drug Abuse Patient Records regulations: The Federal rules restrict any use of the information to criminally investigate or prosecute any alcohol or drug abuse patient.[facility] the event this information is protected by the Federal Confidentiality of Alcohol and Drug Abuse Patient Records regulations: The Federal rules restrict any use of the information to criminally investigate or prosecute any alcohol or drug abuse patient.[facility] the event this information is protected by the Federal Confidentiality of Alcohol and Drug Abuse Patient Records regulations: The Federal rules restrict any use of the information to criminally investigate or prosecute any alcohol or drug abuse patient.[facility] the event this information is protected by the Federal Confidentiality of Alcohol and Drug Abuse Patient Records regulations: The Federal rules restrict any use of the information to criminally investigate or prosecute any alcohol or drug abuse patient.[facility] the event this information is protected by the Federal Confidentiality of Alcohol and Drug Abuse Patient Records regulations: The Federal rules restrict any use of the information to criminally investigate or prosecute any alcohol or drug abuse patient.[facility] Center[facility] the event this information is protected by the Federal Confidentiality of Alcohol and Drug Abuse Patient Records regulations: The Federal rules restrict any use of the information to criminally investigate or prosecute any alcohol or drug abuse patient.[facility] Center[facility] the event this information is protected by the Federal Confidentiality of Alcohol and Drug Abuse Patient Records regulations: The Federal rules restrict any use of the information to criminally investigate or prosecute any alcohol or drug abuse patient.[facility] Center[facility] the event this information is protected by the Federal Confidentiality of Alcohol and Drug Abuse Patient Records regulations: The Federal rules restrict any use of the information to criminally investigate or prosecute any alcohol or drug abuse patient.[facility] Center[facility] the event this information is protected by the Federal Confidentiality of Alcohol and Drug Abuse Patient Records regulations: The Federal rules restrict any use of the information to criminally investigate or prosecute any alcohol or drug abuse patient.[facility] Center[facility] the event this information is protected by the Federal Confidentiality of Alcohol and Drug Abuse Patient Records regulations: The Federal rules restrict any use of the information to criminally investigate or prosecute any alcohol or drug abuse patient.[facility] Center[facility] the event this information is protected by the Federal Confidentiality of Alcohol and Drug Abuse Patient Records regulations: The Federal rules restrict any use of the information to criminally investigate or prosecute any alcohol or drug abuse patient.[facility] CenterIn the event this information is protected by the Federal Confidentiality of Alcohol and Drug Abuse Patient Records regulations: The Federal rules restrict any use of the information to criminally investigate or prosecute any alcohol or drug abuse patient.[facility] Center[facility] the event this information is protected by the Federal Confidentiality of Alcohol and Drug Abuse Patient Records regulations: The Federal rules restrict any use of the information to criminally investigate or prosecute any alcohol or drug abuse patient.[facility] CenterIn the event this information is protected by the Federal Confidentiality of Alcohol and Drug Abuse Patient Records regulations: The Federal rules restrict any use of the information to criminally investigate or prosecute any alcohol or drug abuse patient.[facility] CenterIn the event this information is protected by the Federal Confidentiality of Alcohol and Drug Abuse Patient Records regulations: The Federal rules restrict any use of the information to criminally investigate or prosecute any alcohol or drug abuse patient.[facility] CenterIn the event this information is protected by the Federal Confidentiality of Alcohol and Drug Abuse Patient Records regulations: The Federal rules restrict any use of the information to criminally investigate or prosecute any alcohol or drug abuse patient.[facility] CenterIn the event this information is protected by the Federal Confidentiality of Alcohol and Drug Abuse Patient Records regulations: The Federal rules restrict any use of the information to criminally investigate or prosecute any alcohol or drug abuse patient.[facility] CenterIn the event this information is protected by the Federal Confidentiality of Alcohol and Drug Abuse Patient Records regulations: The Federal rules restrict any use of the information to criminally investigate or prosecute any alcohol or drug abuse patient.[facility] CenterIn the event this information is protected by the Federal Confidentiality of Alcohol and Drug Abuse Patient Records regulations: The Federal rules restrict any use of the information to criminally investigate or prosecute any alcohol or drug abuse patient.[facility] Center[facility] the event this information is protected by the Federal Confidentiality of Alcohol and Drug Abuse Patient Records regulations: The Federal rules restrict any use of the information to criminally investigate or prosecute any alcohol or drug abuse patient.[facility] CenterIn the event this information is protected by the Federal Confidentiality of Alcohol and Drug Abuse Patient Records regulations: The Federal rules restrict any use of the information to criminally investigate or prosecute any alcohol or drug abuse patient.[facility] CenterIn the event this information is protected by the Federal Confidentiality of Alcohol and Drug Abuse Patient Records regulations: The Federal rules restrict any use of the information to criminally investigate or prosecute any alcohol or drug abuse patient.[facility] CenterIn the event this information is protected by the Federal Confidentiality of Alcohol and Drug Abuse Patient Records regulations: The Federal rules restrict any use of the information to criminally investigate or prosecute any alcohol or drug abuse patient.[facility] CenterIn the event this information is protected by the Federal Confidentiality of Alcohol and Drug Abuse Patient Records regulations: The Federal rules restrict any use of the information to criminally investigate or prosecute any alcohol or drug abuse patient.[facility] the event this information is protected by the Federal Confidentiality of Alcohol and Drug Abuse Patient Records regulations: The Federal rules restrict any use of the information to criminally investigate or prosecute any alcohol or drug abuse patient.[facility] CenterIn the event this information is protected by the Federal Confidentiality of Alcohol and Drug Abuse Patient Records regulations: The Federal rules restrict any use of the information to criminally investigate or prosecute any alcohol or drug abuse patient.[facility] CenterIn the event this information is protected by the Federal Confidentiality of Alcohol and Drug Abuse Patient Records regulations: The Federal rules restrict any use of the information to criminally investigate or prosecute any alcohol or drug abuse patient.[facility] Center[facility] the event this information is protected by the Federal Confidentiality of Alcohol and Drug Abuse Patient Records regulations: The Federal rules restrict any use of the information to criminally investigate or prosecute any alcohol or drug abuse patient.[facility] CenterIn the event this information is protected by the Federal Confidentiality of Alcohol and Drug Abuse Patient Records regulations: The Federal rules restrict any use of the information to criminally investigate or prosecute any alcohol or drug abuse patient.[facility] CenterIn the event this information is protected by the Federal Confidentiality of Alcohol and Drug Abuse Patient Records regulations: The Federal rules restrict any use of the information to criminally investigate or prosecute any alcohol or drug abuse patient.[facility] CenterIn the event this information is protected by the Federal Confidentiality of Alcohol and Drug Abuse Patient Records regulations: The Federal rules restrict any use of the information to criminally investigate or prosecute any alcohol or drug abuse patient.[facility] CenterIn the event this information is protected by the Federal Confidentiality of Alcohol and Drug Abuse Patient Records regulations: The Federal rules restrict any use of the information to criminally investigate or prosecute any alcohol or drug abuse patient.[facility] CenterIn the event this information is protected by the Federal Confidentiality of Alcohol and Drug Abuse Patient Records regulations: The Federal rules restrict any use of the information to criminally investigate or prosecute any alcohol or drug abuse patient.[facility] CenterIn the event this information is protected by the Federal Confidentiality of Alcohol and Drug Abuse Patient Records regulations: The Federal rules restrict any use of the information to criminally investigate or prosecute any alcohol or drug abuse patient.[facility] CenterIn the event this information is protected by the Federal Confidentiality of Alcohol and Drug Abuse Patient Records regulations: The Federal rules restrict any use of the information to criminally investigate or prosecute any alcohol or drug abuse patient.[facility] CenterIn the event this information is protected by the Federal Confidentiality of Alcohol and Drug Abuse Patient Records regulations: The Federal rules restrict any use of the information to criminally investigate or prosecute any alcohol or drug abuse patient.[facility] CenterIn the event this information is protected by the Federal Confidentiality of Alcohol and Drug Abuse Patient Records regulations: The Federal rules restrict any use of the information to criminally investigate or prosecute any alcohol or drug abuse patient.[facility] CenterIn the event this information is protected by the Federal Confidentiality of Alcohol and Drug Abuse Patient Records regulations: The Federal rules restrict any use of the information to criminally investigate or prosecute any alcohol or drug abuse patient.[facility] CenterIn the event this information is protected by the Federal Confidentiality of Alcohol and Drug Abuse Patient Records regulations: The Federal rules restrict any use of the information to criminally investigate or prosecute any alcohol or drug abuse patient.[facility] CenterIn the event this information is protected by the Federal Confidentiality of Alcohol and Drug Abuse Patient Records regulations: The Federal rules restrict any use of the information to criminally investigate or prosecute any alcohol or drug abuse patient.[facility] CenterIn the event this information is protected by the Federal Confidentiality of Alcohol and Drug Abuse Patient Records regulations: The Federal rules restrict any use of the information to criminally investigate or prosecute any alcohol or drug abuse patient.[facility] CenterIn the event this information is protected by the Federal Confidentiality of Alcohol and Drug Abuse Patient Records regulations: The Federal rules restrict any use of the information to criminally investigate or prosecute any alcohol or drug abuse patient.[facility] CenterIn the event this information is protected by the Federal Confidentiality of Alcohol and Drug Abuse Patient Records regulations: The Federal rules restrict any use of the information to criminally investigate or prosecute any alcohol or drug abuse patient.[facility] CenterIn the event this information is protected by the Federal Confidentiality of Alcohol and Drug Abuse Patient Records regulations: The Federal rules restrict any use of the information to criminally investigate or prosecute any alcohol or drug abuse patient.[facility] CenterIn the event this information is protected by the Federal Confidentiality of Alcohol and Drug Abuse Patient Records regulations: The Federal rules restrict any use of the information to criminally investigate or prosecute any alcohol or drug abuse patient.[facility] CenterIn the event this information is protected by the Federal Confidentiality of Alcohol and Drug Abuse Patient Records regulations: The Federal rules restrict any use of the information to criminally investigate or prosecute any alcohol or drug abuse patient.[facility] CenterIn the event this information is protected by the Federal Confidentiality of Alcohol and Drug Abuse Patient Records regulations: The Federal rules restrict any use of the information to criminally investigate or prosecute any alcohol or drug abuse patient.[facility] CenterIn the event this information is protected by the Federal Confidentiality of Alcohol and Drug Abuse Patient Records regulations: The Federal rules restrict any use of the information to criminally investigate or prosecute any alcohol or drug abuse patient.[facility] CenterIn the event this information is protected by the Federal Confidentiality of Alcohol and Drug Abuse Patient Records regulations: The Federal rules restrict any use of the information to criminally investigate or prosecute any alcohol or drug abuse patient.[facility] CenterIn the event this information is protected by the Federal Confidentiality of Alcohol and Drug Abuse Patient Records regulations: The Federal rules restrict any use of the information to criminally investigate or prosecute any alcohol or drug abuse patient.[facility] CenterIn the event this information is protected by the Federal Confidentiality of Alcohol and Drug Abuse Patient Records regulations: The Federal rules restrict any use of the information to criminally investigate or prosecute any alcohol or drug abuse patient.[facility] CenterIn the event this information is protected by the Federal Confidentiality of Alcohol and Drug Abuse Patient Records regulations: The Federal rules restrict any use of the information to criminally investigate or prosecute any alcohol or drug abuse patient.[facility] CenterIn the event this information is protected by the Federal Confidentiality of Alcohol and Drug Abuse Patient Records regulations: The Federal rules restrict any use of the information to criminally investigate or prosecute any alcohol or drug abuse patient.[facility] CenterIn the event this information is protected by the Federal Confidentiality of Alcohol and Drug Abuse Patient Records regulations: The Federal rules restrict any use of the information to criminally investigate or prosecute any alcohol or drug abuse patient.[facility] CenterIn the event this information is protected by the Federal Confidentiality of Alcohol and Drug Abuse Patient Records regulations: The Federal rules restrict any use of the information to criminally investigate or prosecute any alcohol or drug abuse patient.[facility] CenterIn the event this information is protected by the Federal Confidentiality of Alcohol and Drug Abuse Patient Records regulations: The Federal rules restrict any use of the information to criminally investigate or prosecute any alcohol or drug abuse patient.[facility] CenterIn the event this information is protected by the Federal Confidentiality of Alcohol and Drug Abuse Patient Records regulations: The Federal rules restrict any use of the information to criminally investigate or prosecute any alcohol or drug abuse patient.[facility] CenterIn the event this information is protected by the Federal Confidentiality of Alcohol and Drug Abuse Patient Records regulations: The Federal rules restrict any use of the information to criminally investigate or prosecute any alcohol or drug abuse patient.[facility] Reason for Visit (unrecogniz ed section and [...] SURGERY OFFICE/OUTPATIENT NEW HIGH MDM 60-74 MINUTES Moon Ferris APRN.CNP [address] [place] [address] Referral ID Status Reason Start Date Expiration Date Visits Requested Visits Authorized [id number] Pending Review PCP Requested Referral 11/20/2022 11/20/2023 1 1 Reason Onset Date Comments Right hand pain Immunizations 06/04/2023 Flu vaccination Reason Comments New Trigger Finger Specialty Diagnoses / Procedures Referred By Contac t Referred To Contact Orthopedics Diagnoses Trigger middle finger of right hand Procedures CONSULT TO ORTHOPAEDICS OFFICE/OUTPATIENT NEW HIGH MDM 60 MINUTES Frederic Luong MD [address] [place] [address] Referral ID Status Reason Start Date Expiration Date V isits Requested Visits Authorized [id number] Closed PCP Requested Referral 06/04/2023 06/03/2024 1 [...] x 2 days Reason Onset Date Comments [facility] 01/07/2024 ED utilizatio n review [...] Follow Up Depression/insomnia Reason Onset Date Comments [facility] RN 10/20/2024 Chart review per payor request Reason Onset Date Comments [facility] RN 12/08/2024 Chart review review per request of payor Reason Onset Date Comments patient outreach 12/08/2024 Chart review re view per request of payor Reason Comments Follow Up Anxiety Care Teams (unrecognized sec tion and content) [employer] Consultant Relationship Specialty Start Date End Date Frederic Luong MD [address] [facility] [facility] [place] [address] PCP - General 06/21/06 [employer] Consultant Relationship Specialty Start Date End Date Frederic Luong MD [address] [facility] [place] [address] PCP - General 06/21/06 [employer] Consultant Relationship Specialty Start Date End Date Frederic Luong MD [address] [facility] [place] [address] PCP - General 06/21/06 [employer] Consultant Relationship Specialty Start Date End Date Frederic Luong MD [address] [facility] [place] [address] PCP - General 06/21/06 [employer] Consultant Relationship Specialty Start Date End Date Frederic Luong MD [address] [facility] [place] [address] PCP - General 06/21/06 [employer] Consultant Relationship Specialty Start Date End Date Frederic Luong MD [address] [facility] [place] [address] PCP - General 06/21/06 [employer] Consultant Relationship Specialty Start Date End Date Frederic Luong MD [address] [facility] [place] [address] PCP - General 06/21/06 [employer] Consultant Relationship Specialty Start Date End Date Frederic Luong MD [address] [facility] [place] [address] PCP - General 06/21/06 Team Status: Active Member Role Status Dates Dr. Frederic Luong MD Family Provider Active Dr. Frederic Luong MD Primary Care Provider Active Team Status: Inactive Member Role Status Dates Dr. Frederic Luong MD Primary Care Provider Active Dr. Sony Eli DO Emergency Provider Active [employer] Consultant Relationship Specialty Start Date End Date Frederic Luong MD [address] [facility] [place] [address] PCP - General 06/21/06 [employer] Consultant Relationship Specialty Start Date End Date Frederic Luong MD [address] [facility] [place] [address] PCP - General 06/21/06 Team Status: Active [...] Primary Care Provider, Atten ding Provider Active [employer] Consultant Relationship Specialty Start Date End Date Frederic Luong MD [address] [place] [address] PCP - General 06/21/06 [employer] Consultant Relationship Specialty Start Date End Date Frederic Luong MD [address] [place] [address] PCP - General 06/21/06 [employer] Consultant Relationship Specialty Start Date End Date Frederic Luong MD [address] [place] [address] PCP - General 06/21/06 [employer] Consultant Relationship Specialty Start Date End Date Frederic Luong MD [address] [place] [address] PCP - General 06/21/06 [employer] Consultant Relationship Specialty Start Date End Date Frederic Luong MD [address] [facility] [place] [address] PCP - General 06/21/06 [employer] Consultant Relationship Specialty Start Date End Date Frederic Luong MD [address] [facility] [place] [address] PCP - General 06/21/06 [employer] Consultant Relationship Specialty Start Date End Date Frederic Luong MD [address] [place] [address] PCP - General 06/21/06 Team Status: Inactive Member Role Status Dates Dr. Frederic Luong MD Primary Care Provider Active Dr. Pj Avendano MD Emergency Provider Active [employer] Consultant Relationship Specialty Start Date End Date Frederic Luong MD [address] [place] [address] PCP - General 06/21/06 Team Status: Inactive Member Role Status Dates Dr. Frederic Luong MD Primary Care Provider Active Dr. Pj Avendano MD Attending Provider, Emergency Provider Active Team Status: Inactive Member Role Status Dates Dr. Frederic Luong MD Primary Care Provider Active Dr. Alen Miller DO Emergency Provider Active [employer] Consultant Relationship Specialty Start Date End Date Frederic Luong MD [address] [facility] [place] [address] PCP - General 06/21/06 [employer] Consultant Relationship Specialty Start Date End Date Frederic Luong MD [address] [facility] [place] [address] PCP - General 06/21/06 [employer] Consultant Relationship Specialty Start Date End Date Frederic Luong MD [address] [facility] [place] [address] PCP - General 06/21/06 [employer] Consultant Relationship Specialty Start Date End Date Frederic Luong MD [address] [facility] [place] [address] PCP - General 06/21/06 [employer] Consultant Relationship Specialty Start Date End Date Frederic Luong MD [address] [place] [address] PCP - General 06/21/06 [employer] Consultant Relationship Specialty Start Date End Date Frederic Luong MD [address] [place] [address] PCP - General 06/21/06 [employer] Consultant Relationship Specialty Start Date End Date Frederic Luong MD [address] [place] [address] PCP - General 06/21/06 [employer] Consultant Relationship Specialty Start Date End Date Frederic Luong MD [address] [place] [address] PCP - General 06/21/06 [employer] Consultant Relationship Specialty Start Date End Date Frederic Luong MD [address] [place] [address] PCP - General 06/21/06 [employer] Consultant Relationship Specialty Start Date End Date Frederic Luong MD [address] [place] [address] PCP - General 06/21/06 [employer] Consultant Relationship Specialty Start Date End Date Frederic Luong MD [address] [place] [address] PCP - General 06/21/06 [employer] Consultant Relationship Specialty Start Date End Date Frederic Luong MD [address] [place] [address] PCP - General 06/21/06 [employer] Consultant Relationship Specialty Start Date End Date Frederic Luong MD [address] [place] [address] PCP - General 06/21/06 [employer] Consultant Relationship Specialty Start Date End Date Frederic Luong MD [address] [place] [address] PCP - General 06/21/06 [employer] Consultant Relationship Specialty Start Date End Date Frederic Luong MD [address] [place] [address] PCP - General 06/21/06 Moon Feliz, CERTIFIED FIRST ASSISTANT.FERRY BOAT CAPTAIN [address] [place] [address] Freight Dispatcher Internal Medicine 03/24/24 [employer] Consultant Relationship Specialty Start Date End Date Frederic Luong MD [address] [place] [address] PCP - General 06/21/06 Moon Feliz, CERTIFIED FIRST ASSISTANT.FERRY BOAT CAPTAIN [address] [place] [address] Freight Dispatcher Internal Medicine 03/24/24 [employer] Consultant Relationship Specialty Start Date End Date Frederic Luong MD [address] [facility] [place] [address] PCP - General 06/21/06 Moon Feliz, CERTIFIED FIRST ASSISTANT.FERRY BOAT CAPTAIN [address] [facility] [place] [address] Freight Dispatcher Internal Medicine 03/24/24 [employer] Consultant Relationship Specialty Start Date End Date Frederic Luong MD [address] [facility] [place] [address] PCP - General 06/21/06 Moon Feliz, CERTIFIED FIRST ASSISTANT.FERRY BOAT CAPTAIN [address] [place] [address] Freight Dispatcher Internal Medicine 03/24/24 [employer] Consultant Relationship Specialty Start Date End Date Frederic Luong MD [address] [facility] [place] [address] PCP - General 06/21/06 Moon Feliz, CERTIFIED FIRST ASSISTANT.FERRY BOAT CAPTAIN [address] [place] [address] Freight Dispatcher Internal Medicine 03/24/24 [employer] Consultant Relationship Specialty Start Date End Date Frederic Luong MD [address] [place] [address] PCP - General 06/21/06 Moon Feliz, CERTIFIED FIRST ASSISTANT.FERRY BOAT CAPTAIN [address] [place] [address] [facility] Internal Medicine 03/24/24 [employer] Consultant Relationship Specialty Start Date End Date Frederic Luong MD [address] [place], [place] [address] PCP - General 06/21/06 Moon Feliz, CERTIFIED FIRST ASSISTANT.FERRY BOAT CAPTAIN [address] [place], [place] [address] Freight Dispatcher Internal Medicine 03/24/24 [employer] Consultant Relationship Specialty Start Date End Date Frederic Luong MD [address] [place], [place] [address] PCP - General 06/21/06 Moon Feliz, CERTIFIED FIRST ASSISTANT.FERRY BOAT CAPTAIN [address] [place], [place] [address] Freight Dispatcher Internal Medicine 03/24/24 Team Status: Active Member Role/Relationship Status Dates Dr. Frederic Luong MD Primary Care Provider Active Team Status: Inactive Member Role/Relationship Status Dates Dr. Frederic Luong MD Primary Care Provider Active Start: October 18, 2024 End: October 18, 2024 Dr. Reece Valera MD Emergency Provider Active Sta rt: October 18, 2024 End: October 18, 2024 Team Status: Inactive Member Role/Relationship Status Dates Dr. Frederic Luong MD Primary Care Provider Active Start: October 18, 2024 End: October 18, 2024 Dr. Reece Valera MD Attending Provider Active Sta rt: October 18, 2024 End: October 18, 2024 Dr. Reece Valera MD Emergency Provider Active Sta rt: October 18, 2024 End: October 18, 2024 Team Status: Inactive Member Role/Relationship Status Dates Dr. Frederic Luong MD Primary Care Provider Active Start: December 06, 2024 End: December 06, 2024 Chris Tam MD Emergency Provider Active Star t: December 06, 2024 End: December 06, 2024 [employer] Consultant Relationship Specialty Start Date End Date Frederic Luong MD [address] [place], [place] [address] PCP - General 06/21/06 Moon Feliz, CERTIFIED FIRST ASSISTANT.FERRY BOAT CAPTAIN [address] [place], [place] [address] Freight Dispatcher Internal Medicine 03/24/24 [employer] Consultant Relationship Specialty Start Date End Date Frederic Loung MD [address] [place], [place] [address] PCP - General 06/21/06 Moon Feliz, CERTIFIED FIRST ASSISTANT.FERRY [employer]AT CAPTAIN [address] [place], [place] [address] Freight Dispatcher Internal Medicine 03/24/24 Goals (unrecognized section and content) Goals may [...] section and content) DATE CREATED AUTHOR 09/02/2023 [facility] DATE CREATED AUTHOR AUTHOR'S ORGANIZ ATION 12/13/2024 [facility] DATE CREATED AUTHOR AUTHOR'S ORGANIZ ATION 01/20/2025 [facility] FOR RECORDS PERTAINING TO PATIENTS WHO [...] BE BASED ON THE PRIMARY CLINICAL RECORDS. [employer] [facility]. provides no warranty or guarantee of the accuracy or completeness of information in this document.
== END 2025-03-30 16:42 | disposition short-term general hospital (02) ==
PROVIDERS: Emergency Provider Emergency Medicine; PCP Internal Medicine; Visit Provider Emergency Medicine
DX: R41.82 Altered mental status, unspecified (principal); I62.9 Nontraumatic intracranial hemorrhage, unspecified; R29.719 NIHSS score 19; Z98.1 Arthrodesis status; R94.31 Abnormal electrocardiogram [ECG] [EKG]
CPT/HCPCS: 31575; 31500; 36600; 51702; 70450; 70496; 70498; 71045; 80048; 82803; 84484; 85025; 85610; 85730; 93005; 94002; 99252; 99285; Q9967; A4216; G0463